=== PATIENT | female | born 1945 | race Caucasian/White ===

== ENCOUNTER 2022-01-04 12:48 | Emergency (ER) | payer MEDICARE, OTHER, MEDICAID, SELFPAY ==
--- NOTE | ~2022-01-04 | XR_ITS ---
EXAMINATION: LEFT FOOT 3 VIEWS LEFT ANKLE 2 VIEWS LEFT KNEE 2 VIEWS LEFT FEMUR 4 VIEWS PELVIS WITH RIGHT HIP 3 VIEWS CLINICAL INFORMATION: Pain status post fall COMPARISON: None TECHNIQUE: As above FINDINGS: Left ankle imaging demonstrates no acute deformity. Left foot and imaging is visualized osteopenia. No acute deformity. Left knee and femur imaging demonstrates an old healed distal femoral diametaphyseal fracture without any acute deformity. Knee joint intact. Multiple ghost tracks from previous ORIF changes within the femoral diaphysis. No knee joint effusion. Generalized hypertrophic spurring. Pelvis and right hip demonstrate no deformity. Generalized spurring. There is sclerosis about the left pelvis. Patient has history of radiation therapy for lymphoma. This may be related to chronic change. No pathologic findings. Dystrophic ossification medially about the left pelvis. Severe degenerative changes about the visualized lower lumbar spine. XR/XR ankle LT 2V IMPRESSION: Chronic findings as above. No acute fracture.
--- NOTE | ~2022-01-04 | XR_ITS ---
EXAMINATION: LEFT FOOT 3 VIEWS LEFT ANKLE 2 VIEWS LEFT KNEE 2 VIEWS LEFT FEMUR 4 VIEWS PELVIS WITH RIGHT HIP 3 VIEWS CLINICAL INFORMATION: Pain status post fall COMPARISON: None TECHNIQUE: As above FINDINGS: Left ankle imaging demonstrates no acute deformity. Left foot and imaging is visualized osteopenia. No acute deformity. Left knee and femur imaging demonstrates an old healed distal femoral diametaphyseal fracture without any acute deformity. Knee joint intact. Multiple ghost tracks from previous ORIF changes within the femoral diaphysis. No knee joint effusion. Generalized hypertrophic spurring. Pelvis and right hip demonstrate no deformity. Generalized spurring. There is sclerosis about the left pelvis. Patient has history of radiation therapy for lymphoma. This may be related to chronic change. No pathologic findings. Dystrophic ossification medially about the left pelvis. Severe degenerative changes about the visualized lower lumbar spine. XR/XR femur LT 2V IMPRESSION: Chronic findings as above. No acute fracture.
--- NOTE | ~2022-01-04 | XR_ITS ---
EXAMINATION: LEFT FOOT 3 VIEWS LEFT ANKLE 2 VIEWS LEFT KNEE 2 VIEWS LEFT FEMUR 4 VIEWS PELVIS WITH RIGHT HIP 3 VIEWS CLINICAL INFORMATION: Pain status post fall COMPARISON: None TECHNIQUE: As above FINDINGS: Left ankle imaging demonstrates no acute deformity. Left foot and imaging is visualized osteopenia. No acute deformity. Left knee and femur imaging demonstrates an old healed distal femoral diametaphyseal fracture without any acute deformity. Knee joint intact. Multiple ghost tracks from previous ORIF changes within the femoral diaphysis. No knee joint effusion. Generalized hypertrophic spurring. Pelvis and right hip demonstrate no deformity. Generalized spurring. There is sclerosis about the left pelvis. Patient has history of radiation therapy for lymphoma. This may be related to chronic change. No pathologic findings. Dystrophic ossification medially about the left pelvis. Severe degenerative changes about the visualized lower lumbar spine. XR/XR hip RT w PEL1V IMPRESSION: Chronic findings as above. No acute fracture.
--- NOTE | ~2022-01-04 | XR_ITS ---
EXAMINATION: LEFT FOOT 3 VIEWS LEFT ANKLE 2 VIEWS LEFT KNEE 2 VIEWS LEFT FEMUR 4 VIEWS PELVIS WITH RIGHT HIP 3 VIEWS CLINICAL INFORMATION: Pain status post fall COMPARISON: None TECHNIQUE: As above FINDINGS: Left ankle imaging demonstrates no acute deformity. Left foot and imaging is visualized osteopenia. No acute deformity. Left knee and femur imaging demonstrates an old healed distal femoral diametaphyseal fracture without any acute deformity. Knee joint intact. Multiple ghost tracks from previous ORIF changes within the femoral diaphysis. No knee joint effusion. Generalized hypertrophic spurring. Pelvis and right hip demonstrate no deformity. Generalized spurring. There is sclerosis about the left pelvis. Patient has history of radiation therapy for lymphoma. This may be related to chronic change. No pathologic findings. Dystrophic ossification medially about the left pelvis. Severe degenerative changes about the visualized lower lumbar spine. XR/XR knee LT 3V IMPRESSION: Chronic findings as above. No acute fracture.
--- NOTE | ~2022-01-04 | XR_ITS ---
EXAMINATION: LEFT FOOT 3 VIEWS LEFT ANKLE 2 VIEWS LEFT KNEE 2 VIEWS LEFT FEMUR 4 VIEWS PELVIS WITH RIGHT HIP 3 VIEWS CLINICAL INFORMATION: Pain status post fall COMPARISON: None TECHNIQUE: As above FINDINGS: Left ankle imaging demonstrates no acute deformity. Left foot and imaging is visualized osteopenia. No acute deformity. Left knee and femur imaging demonstrates an old healed distal femoral diametaphyseal fracture without any acute deformity. Knee joint intact. Multiple ghost tracks from previous ORIF changes within the femoral diaphysis. No knee joint effusion. Generalized hypertrophic spurring. Pelvis and right hip demonstrate no deformity. Generalized spurring. There is sclerosis about the left pelvis. Patient has history of radiation therapy for lymphoma. This may be related to chronic change. No pathologic findings. Dystrophic ossification medially about the left pelvis. Severe degenerative changes about the visualized lower lumbar spine. XR/XR foot LT min 3V IMPRESSION: Chronic findings as above. No acute fracture.
[2022-01-04 13:14] VITALS: BP 129/46; PULSE 57; RESP 18; TEMP 36.8; O2SAT 98; BMI 25.7
[2022-01-04 15:47] VITALS: BP 144/62; PULSE 59; RESP 16; TEMP 36.1; O2SAT 96
--- NOTE | 2022-01-04 15:50 | ED_ITS ---
HPI - Fall General Chief Complaint: Fall Stated Complaint: L Ankle/Knee R Hip Injury 01/04/22 Time Seen by Provider: 01/04/22 13:58 Source: patient Mode of arrival: wheelchair History of Present Illness HPI Narrative: 76-year-old female with a past medical history of lymphoma previously treated with radiation /chemotherapy, with residual LLE numbness/weakness, wheelchair- bound, presenting to the ED complaining of mechanical fall while trying to get into friend's pickup truck today. Reports due to baseline LLE weakness fell twisting left ankle/ leg and landing on right hip. Reports right hip pain radiating to groin. Denies numbness/ tingling to RLE. Denies head trauma or LOC. denies taking anticoagulation MD complaint: fall Onset (ago): hour(s) Fall from: standing Fall witnessed: yes, by bystander Related Data Allergies Allergy/AdvReac Type Severity Reaction Status Date / Time atropine [From ] Allergy Unknown Verified 01/04/22 13:13 enalaprilat [From Vasotec] Allergy Blister Verified 01/04/22 13:13 hyoscyamine [From ] Allergy Unknown Verified 01/04/22 13:13 phenobarbital Allergy Unknown Verified 01/04/22 13:13 scopolamine [From ] Allergy Unknown Verified 01/04/22 13:13 Sulfa (Sulfonamide Allergy Unknown Verified 01/04/22 13:13 Antibiotics) Review of Systems Review of Systems: Constitutional: No Fever, No Chills ENT/Mouth: No Ear Pain, No Nasal Congestion, No Hoarseness, No sore throat, No Rhinorrhea, No Swallowing Difficulty Cardiovascular: No Chest Pain, No SOB Respiratory: No Cough, No Sputum, No Wheezing Gastrointestinal: No Nausea, No Vomiting, No Diarrhea, No Constipation, No Abdominal pain Genitourinary: No Dysuria, No Hematuria, No Urgency, No Flank Pain Musculoskeletal: + joint pain, No Myalgias, No Joint Swelling Skin: No Skin Lesions, No rash Neuro: No Weakness, +chronic LLE Numbness, No Paresthesias, No head trauma, No LOC Yes all other systems are reviewed and are negative Constitutional: Constitutional: Reports as per HPI Neurologic: Denies Abnormal speech present PMFSH Past Medical History Attestation statement: The following information was validated with the patient. Social History Social History Advance Directives: Yes Advance Directives Information Provided: Yes Advance Directives on File: No Physical Exam Vital Signs: Vital Signs: Last Vital Signs Temp 96.9 F 01/04/22 15:47 Pulse 59 01/04/22 15:47 Resp 16 01/04/22 15:47 BP 144/62 H 01/04/22 15:47 Pulse Ox 96 01/04/22 15:47 O2 Del Method 01/04/22 15:47 BMI result Body Mass Index 25.7 Const: General: cooperative, healthy appearing and no acute distress; No acute distress Orientation/consciousness: patient oriented x3 Limitations: no limitations HEENT: Head: Yes normal to inspection and Yes atraumatic Ears: hearing grossly normal bilaterally General nose exam: Normal external nose present Face and sinus: Yes normal facial exam Eyes: General: appearance normal, both eyes and all related structures EOM: EOMs intact bilaterally Neck: Neck: Yes normal visual inspection and Yes no meningeal signs Resp: Effort & Inspection: normal respiratory effort and no respiratory distress Cardio: Rate: regular rate Heart sounds: S1 normal heart sound present and S2 normal heart sound present Peripheral pulses: dorsalis pedis present Back/Spine/Pelvis: Other: No midline thoracic/lumbar spinous tenderness/step-off or deformity Skin: Rashes: no rashes Wounds: no wounds Neuro: General: patient oriented x3, tone normal and no meningeal signs Cognition (Neuro): normal cognition Speech: No Abnormal speech present Extrem: Other: right hip / buttock with mild tenderness to palpation. No appreciable deformity. Neurovascular intact distally. Left lower extremity with mild tenderness to medial ankle with mild swelling. No appreciable deformity. Limited ROM of LLE at baseline. Neurovascular intact distally. Course Course Course Narrative: XR femur LT 2V / XR hip RT w PEL1V / XR knee LT 3V / XR ankle LT 2V / XR foot LT min 3V IMPRESSION: Chronic findings as above. No acute fracture.? Results discussed with patient including worrisome signs and symptoms and strict return precautions, and when to return to the emergency department. They verbalized understanding and feel safe for discharge at this time. patient follows with pain management, she will call tomorrow for follow-up MDM - Fall MDM Narrative Medical decision making narrative: 76-year-old female with a past medical history of lymphoma previously treated with radiation /chemotherapy, with residual LLE numbness/weakness, wheelchair- bound, presenting to the ED complaining of mechanical fall while trying to get into friend's pickup truck today. On exam vital signs stable, NAD, nontoxic appearing, physical exam as above. Difficult to assess patient's left lower extremity due to baseline numbness and weakness. Right hip with notable tenderness. concern for fractures versus sprain plan: X-rays Medical Records Attestation: I reviewed the patient's medical records. Lab Data Attestation: I reviewed the patient's lab results. Discharge Plan Discharge Clinical Impression: Ankle sprain, Fall, Acute hip pain Patient Disposition: Home, Self-Care Instructions: Ankle Sprain (ED), Arthralgia (ED), Fall Prevention (ED) Additional Instructions: your x-rays do not show any new fractures / dislocations, do show degenerative changes. An old changes related to her radiation please follow-up with her doctor/ pain management in continue home prescribed medications. Apply ice and or he. If symptoms persist or worsen, pain becomes unbearable or you have recurrent falls return to the emergency department Referrals: Debi Cisse MD [Primary Care Provider] - 5 days Interventions: ED Discharge Assessment Last Done: 01/04/22 16:57 Discharge Date/Time: 01/04/22 16:58
== END 2022-01-04 16:58 | disposition home or self-care (01) ==
PROVIDERS: Emergency Provider Emergency Medicine; PCP Family Medicine
DX: S93.402A Sprain of unspecified ligament of left ankle, initial encounter (principal); S79.911A Unspecified injury of right hip, initial encounter; M25.572 Pain in left ankle and joints of left foot; M25.571 Pain in right ankle and joints of right foot; M25.552 Pain in left hip; M25.551 Pain in right hip; M25.562 Pain in left knee; M25.561 Pain in right knee; W01.0XXA Fall on same level from slipping, tripping and stumbling without subsequent striking against object, initial encounter; Y93.9 Activity, unspecified; Y92.9 Unspecified place or not applicable; Y99.9 Unspecified external cause status; Z79.899 Other long term (current) drug therapy
CPT/HCPCS: 73502; 73552; 73562; 73600; 73630; 99283

== ENCOUNTER → 2022-01-07 10:59 | Outpatient (REF) | payer MEDICARE, OTHER, SELFPAY ==
--- NOTE | ~2022-01-07 | NM_ITS ---
EXAMINATION: NM BONE SCAN OF THE WHOLE BODY CLINICAL INFORMATION: 76-year-old female with history of lymphoma presented with chronic left hip and low back pain for 6 months. COMPARISON: Whole-body bone scan done on 05/24/2009. Radiographs of the lumbosacral spine done on 04/24/2009, and radiographs of left knee, left ankle and left foot done on 01/04/2022. TECHNIQUE: Multiple gamma scintillation camera images of the whole body were performed 2.5 hours following the intravenous administration of 25.0 mCi Tc-99m MDP. FINDINGS: In the head, no focal abnormalities present. In the thoracic cage and upper extremities, no focal abnormalities. In the spine, focal abnormal increased radiotracer activity is present within the lower cervical spine, new since prior study, most consistent with degenerative spondylosis. Multilevel focal abnormal increased radiotracer activities are also noted at lower thoracic spine, most consistent with degenerative changes. Focal abnormal moderately intense increased radiotracer activity is present involving the L5 mostly to the right of the midline, new since prior study, may represent degenerative spondylosis. There are no recent radiographs are available for comparison. Radiographic correlation is recommended. In the pelvis, no focal abnormal increased radiotracer activity is present. In the lower extremities, asymmetric focal increased radiotracer activity is present at left knee, predominantly involving the left femoral metaphysis, when correlating with the radiographs dated 01/04/2022, may represent arthritic changes. Specifically, both hips appear symmetric bilaterally without evidence of any focal abnormality. Mildly increased radiotracer activity is also noted at the left ankle and bilateral midfoot and right greater than left forefoot, likely represent arthritic or posttraumatic changes, without any radiographic correlate on the left foot radiograph done on 01/04/2022. No other definite bony abnormalities are noted. The urinary bladder and faint visualization of both kidneys are noted. NM/NM bone scan whole body IMPRESSION: 1. The spine shows abnormal increased radiotracer activities at the lower cervical, mid to lower thoracic and lower lumbar spine, likely represent multilevel degenerative spondylosis. However, there are no recent radiographs available for comparison. Accordingly, follow-up radiographs of the cervical, thoracic and lumbosacral spine is recommended for further correlation. 2. Asymmetric focal increased radiotracer activity is present around the left knee predominantly involving the left femoral metaphysis, when correlating with the available radiographs dated 01/04/2022, the finding would be most consistent with arthritic changes. 3. Increase radiotracer activity at left ankle when correlating with the radiograph dated 01/04/2022 is also consistent with arthritic changes. 4. Increased radiotracer activities around both feet likely represent arthritic or posttraumatic changes, without any definite radiographic correlate on the left. 5. Both hips appear symmetric without any discrete focal abnormality.
== END ==
LOC: HO.NUCMED 10:59
PROVIDERS: PCP Internal Medicine; Visit Provider Internal Medicine
DX: G89.29 Other chronic pain (principal); M25.551 Pain in right hip; M25.561 Pain in right knee; Z85.72 Personal history of non-Hodgkin lymphomas
CPT/HCPCS: 78306; A9503

== ENCOUNTER 2022-10-21 11:38 | Inpatient (IN) | payer MEDICARE, OTHER, SELFPAY ==
[2022-10-21] VITALS (7 sets, daily range): BP systolic 135–154; BP diastolic 51–85; PULSE 50–57; RESP 13–20; TEMP 36.7–37.1; O2SAT 95–98; BMI 23.4
--- NOTE | ~2022-10-21 | MR_ITS ---
MRI OF THE BRAIN WITHOUT IV CONTRAST INDICATION: Stroke. Left arm weakness and ataxia. COMPARISON: Head CT 10/21/2022. TECHNIQUE: Multiplanar multisequence MR imaging of the brain was obtained without IV contrast. FINDINGS: There is no hydrocephalus, extra-axial surface collection, or herniation. There is global cerebral volume loss and there is mild to moderate chronic microangiopathy. The major flow voids at the skull base are preserved. There is no acute infarct on diffusion-weighted imaging. There is no intracranial hemorrhage on the gradient recalled echo acquisition. The midline structures are normal. The cerebellar tonsils are normally positioned. The cerebellum and brainstem are normal. The craniocervical junction is normal. Osseous marrow signal intensity is homogenous. The visualized soft tissues are unremarkable. Complete opacification of the right maxillary sinus with central calcified material that is low T2 signal intensity. Mycetoma not excluded. ENT consultation advised. MR/MR head/brain wo con IMPRESSION: - No acute intracranial findings. No acute infarcts. - There is global cerebral volume loss and there is mild to moderate chronic microangiopathy. - Complete opacification of the right maxillary sinus with central calcified material that is low T2 signal intensity. Mycetoma not excluded. ENT consultation advised.
--- NOTE | ~2022-10-21 | XR_ITS ---
EXAMINATION: XR CHEST CLINICAL INFORMATION: Left arm weakness with question of pneumonia COMPARISON: CT chest 07/03/2008 TECHNIQUE: Frontal view of the chest was obtained. FINDINGS: No significant abnormality is noted involving the heart, lungs, mediastinum, bony thorax or soft tissues. XR/XR chest 1V IMPRESSION: Unremarkable examination.
--- NOTE | ~2022-10-21 | CT_ITS ---
EXAMINATION: CT HEAD WITHOUT CONTRAST CLINICAL INFORMATION: Left arm weakness with ataxia. COMPARISON: May 30, 2007 TECHNIQUE: Contiguous axial imaging was performed from the skull base to vertex without intravenous administration of contrast. This CT examination was performed using dose optimization techniques as appropriate, variously including the following: *Automated exposure control *Adjustment of mA and/or kV according to patient size (this includes techniques or standardized protocols for targeted exams where dose is matched to indication/reason for exam; i.e. extremities or head) *Use of iterative reconstruction technique DLP: 622 mGy-cm FINDINGS: No intracranial hemorrhage is identified. No abnormal extra-axial fluid collection is seen. No significant mass effect or midline structure shift is noted. Within the right frontal region there is a faint region of diminished density which could represent an involving right frontal lobe infarct. There also appears to be some diminished density about the anterior limb of the right internal capsule. There is opacification of the right maxillary sinus with appearance of antrectomy. No destructive bony lesion identified. Pterygoid plates intact. CT/CT head/brain wo IV con IMPRESSION: Findings consistent with possible evolving right frontal lobe and anterior limb of the right internal capsule infarct. No evidence of intracranial hemorrhage or significant mass effect.
--- NOTE | ~2022-10-21 | US_ITS ---
EXAMINATION: US EXTRACRANIAL CAROTID DUPLEX, BILATERAL CLINICAL INFORMATION: Stroke COMPARISON: None available. TECHNIQUE: Real-time ultrasound and Doppler techniques (integrating B-mode 2-D vascular images, Doppler spectral analysis and color-flow Doppler imaging) were utilized to interrogate the extracranial carotid arteries, the vertebral arteries and proximal subclavian arteries bilaterally. The degree of stenosis is determined by criteria similar to NASCET. FINDINGS: Right Side: 1. There is mild atherosclerotic plaque seen in the bulb, but none in the ICA. 2. The common carotid artery PSV proximally is 113 cm/s and distally 72.4 cm/s. 3. The proximal internal carotid artery velocities are 58.5 cm/s systolic and 15.7 cm/s diastolic. 4. The proximal external carotid artery PSV is 108 cm/s. 5. The vertebral artery shows antegrade flow. 6. The subclavian artery waveforms are normal. Left Side: 1. There is mild atherosclerotic plaque seen in the bulb, but none in the ICA. 2. The common carotid artery PSV proximally is 85.1 cm/s and distally 80.1 cm/s. 3. The proximal internal carotid artery velocities are 77.9 cm/s systolic and 20.9 cm/s diastolic. 4. The proximal external carotid artery PSV is 73.5 cm/s. 5. The vertebral artery shows 49.7 flow. 6. The subclavian artery waveforms are normal. US/US carotid duplex BI IMPRESSION: 1. RIGHT: Normal right internal carotid artery without atherosclerotic plaque or hemodynamically significant stenosis. 2. LEFT: Normal left internal carotid artery without atherosclerotic plaque or hemodynamically significant stenosis.
--- NOTE | 2022-10-21 12:00 | PC.NURSE ---
pt is alert and oriented, speaking in clear full sentences, no facial droop, left sided hand grasp slightly weakener then the right, no hand drift, sinus patti on the monitor, denies pain and dizziness at this time
--- NOTE | 2022-10-21 12:15 | ED_ITS ---
HPI - Weakness General Chief complaint: Weakness Stated complaint: L arm weakness since last night(9pm) per EMS Time Seen by Provider: 10/21/22 11:59 Source: patient and family Limitations: no limitations History of Present Illness HPI Narrative: A 7-year-old female who presents emergency department for evaluation of left arm weakness that started last night at 21:30 hours. She states that she then fell asleep in a chair. She woke up at 20 uncoordinated and weak. She then fell back asleep This morning when she woke up she states that her left arm was? were needed and weak compared to her right. She had no other symptoms. She states she did have a mild headache last night but this resolved. She contacted her doctor who advised her to go to the emergency department to be evaluated for possible stroke. Related Data Home Medications Medication Instructions Recorded Confirmed atorvastatin 20 mg tablet 20 mg PO DAILY 10/21/22 furosemide 40 mg tablet 40 mg PO DAILY 10/21/22 ipratropium bromide 21 mcg (0.03 1 spray intranasal BID PRN 10/21/22 %) nasal spray congestion methenamine hippurate 1 gram tablet 1 g PO BID 10/21/22 Allergies Allergy/AdvReac Type Severity Reaction Status Date / Time atropine [From ] Allergy Unknown Verified 10/21/22 11:58 enalaprilat [From Vasotec] Allergy Blister Verified 10/21/22 11:58 hyoscyamine [From ] Allergy Unknown Verified 10/21/22 11:58 phenobarbital Allergy Unknown Verified 10/21/22 11:58 scopolamine [From ] Allergy Unknown Verified 10/21/22 11:58 Sulfa (Sulfonamide Allergy Unknown Verified 10/21/22 11:58 Antibiotics) Review of Systems Review of Systems: Yes all other systems are reviewed and are negative [facility] Past Medical History [facility] Narrative: Past medical history: Hypertension, depression, anxiety, in 1986. Social history: She denies tobacco, alcohol and drug use. Her 2 daughters are here in the emergency department with her. Social History Social History Smoked in Last 30 Days: No Use of substances other than those prescribed or required for medical reasons: No Advance Directives: No Advance Directives Information Provided: Yes Physical Exam Vital Signs: Vital Signs: Last Vital Signs Temp 98.6 F 10/21/22 15:05 Pulse 50 10/21/22 15:05 Resp 13 10/21/22 15:05 BP 144/56 H 10/21/22 15:05 Pulse Ox 95 10/21/22 15:05 O2 Del Method Room Air 10/21/22 15:05 BMI result Body Mass Index 23.4 Const: General: cooperative and no acute distress Limitations: no limitations HEENT: Head: Yes normal to inspection, Yes normocephalic and Yes atraumatic Ears: external ears normal General nose exam: Normal external nose present Face and sinus: Yes normal facial exam Mouth: Normal oral and palatal mucosa present Throat: Yes posterior oropharynx normal Eyes: General: appearance normal, both eyes and all related structures Pupils: Equal, round and reactive pupils present Neck: Neck: Yes normal visual inspection, Yes no lymphadenopathy, Yes trachea midline and Yes supple Chest: Chest palpation & inspection: normal inspection of the chest and normal palpation of entire chest wall Resp: Effort & Inspection: normal respiratory effort and able to speak in complete sentences Auscultation: clear to auscultation bilaterally Cardio: Rate: regular rate Rhythm: regular rhythm Heart sounds: S1 normal heart sound present, S2 normal heart sound present and no murmurs GI: Inspection: Yes normal to inspection Palpation (GI): Soft to palpation, nontender and no guarding Auscultation: normal bowel sounds : General: Yes no CVA tenderness Back/Spine/Pelvis: Back: no CVA tenderness Skin: General skin exam: no rashes or lesions noted Neuro: Other: Cranial nerves 2-12 are intact, strength left upper extremities weak compared to the right, patient has chronic weakness of her left lower extremity secondary to femur fracture, cerebellar normal in the right upper extremity, patient has past pointing with her left upper extremity and uncoordinated movement with finger to nose to finger and rapid finger movement Cranial nerves: Yes Equal, round and reactive pupils present Extrem: General: Yes normal to inspection Psych: Appearance: grossly normal Speech and movement: Normal speech and movement present Affect: normal affect Attitude: cooperative Thought process: Normal thought process present Thought content: Normal thought content present NIH Stroke Scale Level of Consciousness: Alert Level of Consciousness Questions: Answers both questions correctly Level of Consciousness Commands: Performs both tasks correctly Best Gaze: Normal Visual: No visual loss Facial Palsy: Normal Motor Arm (Right): No drift Motor Arm (Left): Some effort against gravity Motor Leg (Right): No drift Motor Leg (Left): No drift (Patient has chronic weakness the left lower extremity secondary to femur fracture) Limb Ataxia: Absent Sensory: Normal Best Language: No aphasia Dysarthia: Normal Extinction and Inattention: No abnormality Score: 2 Medical Decision Making Medical Decision Making [facility] Narrative: 77-year-old female Who presents emergency department for evaluation of left upper extremity weakness compared to the right which began last night at 21:30 hours and persisted this morning. Examination did reveal weakness of the left upper extremity compared to the right. She has chronic weakness of her left lower extremity secondary to a femur fracture. Patient also has poor [id number]-finger and uncoordinated rapid finger movement of her left upper extremity compared to the right. 1458: My interpretation patient's laboratory evaluation as follows: WBC low 3700, platelet count low 104,000, BUN elevated 24, CO2 elevated 37, AST and ALT elevated [address] scan is concerning for a right frontal lobe and anterior limb of the internal capsule infarct which is consistent with her left upper extremity weakness. The patient is outside the thrombolytics window therefore the patient is not a tPA and tPA was not given. I did discuss the patient with our covering neurologist, Dr. Bailey recommended that the patient get aspirin in be admitted to the hospital for further workup of her stroke. I will discuss the patient's presentation with the covering hospitalist. Differential Diagnosis Differential diagnosis includes but is not limited to cerebellar stroke, cerebral stroke, mass effect, intracranial hemorrhage Consult Healthcare Provider Management of the patient was discussed with: Hospitalist and [employer] In[employer] (Neurologist, Dr. Bailey) Lab Data [facility] Lab Attestation statement: I reviewed the patient's lab results. 10/21/22 13:22 10/21/22 13:22 Labs: Lab Results 10/21/22 10/21/22 10/21/22 Range/Units 13:22 13:22 13:22 WBC 3.7 L (4.8-10.8) X10*3/uL RBC 4.22 (4.20-5.50) X10*6/uL Hgb 12.9 (12.0-16.0) g/dl Hct 39.3 (37.0-47.0) % MCV 93.1 (80.0-98.0) fL MCH 30.6 (27.0-33.0) pg MCHC 32.8 (31.0-35.0) g/dl RDW 12.5 (11.0-16.0) % Plt Count 104 L (160-400) X10*3/uL MPV 9.9 (9.4-12.3) fL Immature Gran % (Auto) 0.3 (0.0-0.4) % Neut % (Auto) 65.5 (45-73) % Lymph % (Auto) 19.7 L (20-40) % [place] % (Auto) 10.8 (2-11) % Eos % (Auto) 3.2 (0-4) % Baso % (Auto) 0.5 (0-2) % Lymph # (Auto) 0.7 L (1.2-4.9) X10*3/uL [place] # (Auto) 0.4 (0.1-1.2) X10*3/uL Eos # (Auto) 0.1 (0.0-0.4) X10*3/uL Baso # (Auto) 0.0 (0.0-0.2) X10*3/uL Abs Immat Gran (auto) 0.01 (0.00-0.03) X10*3/uL Absolute Neuts (auto) 2.4 (2.0-8.3) x10*3/uL Absolute Nucleated RBC 0.000 (0.0-0.012) X10*3/uL Nucleated RBC % (auto) 0.0 (0.0-0.2) /100WBC PT 10.9 (10.0-13.1) SEC INR 1.0 (0.9-1.1) APTT 33.3 (26.0-36.4) SEC Sodium 138 (135-145) mmol/L Potassium 5.0 (3.3-5.1) mmol/L Chloride 96 (96-108) mmol/L Carbon Dioxide 37 H (22-29) mmol/L Anion Gap 10 L (12-20) BUN 24 H (9-16) mg/dL Creatinine 0.82 (0.5-1.4) mg/dL Estim Creat Clear Calc 50.0 Estimated GFR > 60 Random Glucose 86 (60-115) mg/dL Calcium 9.5 (8.4-10.2) mg/dL Total Bilirubin 0.5 (0.0-1.0) mg/dL AST 40 H (5-31) U/L ALT 39 H (0-31) U/L Alkaline Phosphatase 52 (39-117) U/L Troponin I High Sens (<3.5-17.0) ng/L Total Protein 7.4 (6.5-8.0) g/dL Albumin 4.6 (3.5-5.0) g/dL Lipase 43 (8-78) U/L 10/21/22 Range/Units 13:22 WBC (4.8-10.8) X10*3/uL RBC (4.20-5.50) X10*6/uL Hgb (12.0-16.0) g/dl Hct (37.0-47.0) % MCV (80.0-98.0) fL MCH (27.0-33.0) pg MCHC (31.0-35.0) g/dl RDW (11.0-16.0) % Plt Count (160-400) X10*3/uL MPV (9.4-12.3) fL Immature Gran % (Auto) (0.0-0.4) % Neut % (Auto) (45-73) % Lymph % (Auto) (20-40) % [place] % (Auto) (2-11) % Eos % (Auto) (0-4) % Baso % (Auto) (0-2) % Lymph # (Auto) (1.2-4.9) X10*3/uL [place] # (Auto) (0.1-1.2) X10*3/uL Eos # (Auto) (0.0-0.4) X10*3/uL Baso # (Auto) (0.0-0.2) X10*3/uL Abs Immat Gran (auto) (0.00-0.03) X10*3/uL Absolute Neuts (auto) (2.0-8.3) x10*3/uL Absolute Nucleated RBC (0.0-0.012) X10*3/uL Nucleated RBC % (auto) (0.0-0.2) /100WBC PT (10.0-13.1) SEC INR (0.9-1.1) APTT (26.0-36.4) SEC Sodium (135-145) mmol/L Potassium (3.3-5.1) mmol/L Chloride (96-108) mmol/L Carbon Dioxide (22-29) mmol/L Anion Gap (12-20) BUN (9-16) mg/dL Creatinine (0.5-1.4) mg/dL Estim Creat Clear Calc Estimated GFR Random Glucose (60-115) mg/dL Calcium (8.4-10.2) mg/dL Total Bilirubin (0.0-1.0) mg/dL AST (5-31) U/L ALT (0-31) U/L Alkaline Phosphatase (39-117) U/L Troponin I High Sens 4.3 (<3.5-17.0) ng/L Total Protein (6.5-8.0) g/dL Albumin (3.5-5.0) g/dL Lipase (8-78) U/L Independent Interpretation I performed an independent interpretation of an: EKG Interpretation: My independent interpretation patient's 12 EKG done at 13:06: Sinus bradycardia rate 52, normal P QRS and QTC interval, no ST segment elevation, no ST depression, Q-waves in V1 and V2, no significant T-wave abnormalities no PACs, no PVCs Radiology Impression Discussion of test interpretation with radiology: I have reviewed the radiologist's reading. Radiologist Impression: CT head/brain wo IV con IMPRESSION: Findings consistent with possible evolving right frontal lobe and anterior limb of the right internal capsule infarct. No evidence of intracranial hemorrhage or significant mass effect. Dictated By:Christopher Epperson MD Independent Historian Clinical information obtained from an independent historian. History obtained from or confirmed by: Other (Two daughters who are at the patient's bedside) External Record Review External record reviewed: Inpatient record Discharge Plan Discharge Clinical Impression: Stroke
--- NOTE | 2022-10-21 12:21 | ECG_ITS ---
Test Reason : ? STROKE/ A-FIB Blood Pressure : / mmHG Vent. Rate : 052 BPM Atrial Rate : 052 BPM P-R Int : 196 ms QRS Dur : 088 ms QT Int : 464 ms P-R-T Axes : 063 016 068 degrees QTc Int : 431 ms Sinus bradycardia cannot exclude old Septal infarct (cited on or before 09-OCT-2009) Abnormal ECG When compared with ECG of 09-OCT-2009 17:15, No significant change was found Referred By: Chris Blake Electronically Signed By:CHANTALE LAWRENCE
[2022-10-21 13:26] LABS: MANUAL DIFF FLAG NO
[2022-10-21 13:31] LABS: Basophils Percent Auto 0.5 % (0-2); Eosinophils Absolute Auto 0.1 X10*3/uL (0.0-0.4); Eosinophils Percent Auto 3.2 % (0-4); Hematocrit 39.3 % (37.0-47.0); Hemoglobin 12.9 g/dl (12.0-16.0); Imm Gran Abs Auto 0.01 X10*3/uL (0.00-0.03); Imm Gran Pct Auto 0.3 % (0.0-0.4); Lymphocytes Absolute Auto 0.7 X10*3/uL (1.2-4.9); Lymphocytes Percent Auto 19.7 % (20-40); Mean Corpuscular HGB Conc 32.8 g/dl (31.0-35.0); Mean Corpuscular Hemoglobin 30.6 pg (27.0-33.0); Mean Corpuscular Volume 93.1 fL (80.0-98.0); Mean Platelet Volume 9.9 fL (9.4-12.3); Monocytes Absolute Auto 0.4 X10*3/uL (0.1-1.2); Monocytes Percent Auto 10.8 % (2-11); Neutrophils Absolute Auto 2.4 x10*3/uL (2.0-8.3); Neutrophils Percent Auto 65.5 % (45-73); Platelet Count 104 X10*3/uL (160-400); Red Blood Count 4.22 X10*6/uL (4.20-5.50); Red Cell Distribution Width 12.5 % (11.0-16.0); White Blood Count 3.7 X10*3/uL (4.8-10.8)
[2022-10-21 13:35] LABS: Prothrombin Time 10.9 SEC (10.0-13.1)
[2022-10-21 13:37] LABS: Partial Thromboplastin Time 33.3 SEC (26.0-36.4)
[2022-10-21 13:49] LABS: Alanine Aminotransferase 39 U/L (0-31); Albumin Level 4.6 g/dL (3.5-5.0); Alkaline Phosphatase 52 U/L (39-117); Anion Gap 10 (12-20); Aspartate Amino Transferase 40 U/L (5-31); Bilirubin Total 0.5 mg/dL (0.0-1.0); Blood Urea Nitrogen 24 mg/dL (9-16); Calcium 9.5 mg/dL (8.4-10.2); Carbon Dioxide 37 mmol/L (22-29); Chloride 96 mmol/L (96-108); Estimated Glomerular Filt Rate > 60; Glucose Random 86 mg/dL (60-115); Lipase 43 U/L (8-78); Sodium 138 mmol/L (135-145); Total Protein 7.4 g/dL (6.5-8.0); Troponin-I High Sensitivity 4.3 ng/L (<3.5-17.0)
[2022-10-21] MEDS: Aspirin 81 MG TAB.CHEW 162 MG PO (15:28)
--- NOTE | 2022-10-21 15:55 | P.HPHOSP_ITS ---
History of Present Illness Date of Service: 10/21/22 Attending physician on admission: Krystle Montejo Chief Complaint: lue weakness 77-year-old female with history of hypertension, hypercholesterolemia, peripheral neuropathy, hypothyroidism, depression, recurrent UTI, hypercholesterolemia, CARMEN on BiPAP, possible seizure disorder, resting tremor, and history of lymphoma s/p radiation of the left lower extremity lymph nodes presented to the ED earlier today for evaluation of left upper extremity weakness that started around 930 last night. She then fell asleep in a chair and woke up somewhat disoriented and weak but fell back asleep. This morning, states her left arm was much weaker than the right. Denies any other focal deficits. There was a mild headache last night which resolved. She does have history of stroke about 30 years ago without any sequela known. On arrival, vital stable, blood pressure 143/62. Mild leukopenia of 3.7. Platelets 104. Renal function baseline. Electrolytes normal except for mild hypercapnia of 37. Troponin 4.3. CXR unremarkable. Head CT with findings consistent with possible evolving right frontal lobe and anterior limb of the right internal capsule infarct but no evidence of intracranial hemorrhage or significant mass effect. Patient is outside of the window for tPA and is recommended for admission for further evaluation and monitoring of stroke. Given 160 mg aspirin in the ED. Review of Systems Review of Systems: General: No fevers, malaise, unintentional weight loss HEENT: No blurred vision, diplopia. No sore throat, nasal congestion, rhinorrhea, sinus pain, ear pain Cardiovascular: No chest pain, palpitations, or leg edema Respiratory: No shortness of breath, wheezing, cough GI: No abdominal pain, nausea, vomiting, diarrhea, constipation, melena, hematochezia : No dysuria, hematuria, increased urinary frequency, decreased urinary output MSK: No myalgia, back pain Neuro: No headaches. +LUE and LLE weakness, +lle numbness Skin: No rashes or lesions [facility] Medical History Anxiety GERD (gastroesophageal reflux disease) Hyperlipidemia Hypertension Hypothyroidism Lymphoma CARMEN on CPAP Peripheral neuropathy Recurrent UTI Resting tremor Restless leg syndrome Urinary incontinence Surgical History S/P radiation therapy Social History Patient Tobacco Use Status: Never used Tobacco Meds Allergies Allergy/AdvReac Type Severity Reaction Status Date / Time atropine [From ] Allergy Unknown Verified 10/21/22 11:58 enalaprilat [From Vasotec] Allergy Blister Verified 10/21/22 11:58 hyoscyamine [From ] Allergy Unknown Verified 10/21/22 11:58 phenobarbital Allergy Unknown Verified 10/21/22 11:58 scopolamine [From ] Allergy Unknown Verified 10/21/22 11:58 Sulfa (Sulfonamide Allergy Unknown Verified 10/21/22 11:58 Antibiotics) Active Medications: Current Medications Acetaminophen (Acetaminophen 325 Mg Tablet) 650 mg PO Q6H PRN PRN Reason: Pain, Mild (Pain Scale 1-3) Aspirin (Aspirin Enteric Coated 81 Mg Tablet.Dr) 81 mg PO DAILY [facility] Docusate Sodium (Docusate Sodium 100 Mg Capsule) 100 mg PO DAILY PRN PRN Reason: Constipation Ondansetron HCl (Ondansetron Hcl 4 Mg/2 Ml Vial) 4 mg IVPUSH Q8H PRN PRN Reason: Nausea and Vomiting Pharmacy Consult (Consult Rx Perform Med Rec) 1 each MISCELLANE ONCE PRN PRN Reason: Consult order Sodium Chloride (0.9 % Sodium Chloride Flush 3 Ml Syringe) 3 ml IVFLUSH QSHIFT [facility] Home Medications Medication Instructions Recorded Confirmed Last Taken Type atorvastatin 20 mg tablet 20 mg PO DAILY 10/21/22 Unknown History furosemide 40 mg tablet 40 mg PO DAILY 10/21/22 Unknown History ipratropium bromide 21 mcg (0.03 1 spray intranasal BID PRN 10/21/22 Unknown History %) nasal spray congestion methenamine hippurate 1 gram tablet 1 g PO BID 10/21/22 Unknown History Physical Exam Vital Signs and Narrative: Vital Signs: Last Vital Signs Temp 98.6 F 10/21/22 15:05 Pulse 50 10/21/22 15:05 Resp 13 10/21/22 15:05 BP 144/56 H 10/21/22 15:05 Pulse Ox 95 10/21/22 15:05 O2 Del Method Room Air 10/21/22 15:05 BMI result Body Mass Index 23.4 Constitutional - Awake and Alert, No apparent distress Eyes - PERRLA, EOMI Cardiovascular - S1S2, RRR, No edema Respiratory - Normal lung expansion, Normal respiratory effort, No respiratory distress, CTA bilaterally Gastrointestinal - NT / ND; +BS; No rebound or guarding Extremities - no calf tenderness bilaterally, no swelling Skin - Warm/Dry Neurological - Alert & oriented x3, CN II-XII in tact, 5/5 strength RUE and RLE. 3/5 strength LUE, 0/5 strength LLE. Positive left sided pronator drift Psychological - Appropriate affect Results Labs 10/21/22 13:22 10/21/22 13:22 Labs: Laboratory Results - last 24 hr 10/21/22 10/21/22 10/21/22 13:22 13:22 13:22 MCV 93.1 MCH 30.6 MCHC 32.8 RDW 12.5 Plt Count 104 L MPV 9.9 Immature Gran % (Auto) 0.3 Neut % (Auto) 65.5 Lymph % (Auto) 19.7 L [place] % (Auto) 10.8 Eos % (Auto) 3.2 Baso % (Auto) 0.5 Lymph # (Auto) 0.7 L Jack # (Auto) 0.4 Eos # (Auto) 0.1 Baso # (Auto) 0.0 Abs Immat Gran (auto) 0.01 Absolute Neuts (auto) 2.4 Absolute Nucleated RBC 0.000 Nucleated RBC % (auto) 0.0 PT 10.9 INR 1.0 APTT 33.3 Anion Gap 10 L Estim Creat Clear Calc 50.0 Estimated GFR > 60 Random Glucose 86 Calcium 9.5 Total Bilirubin 0.5 AST 40 H ALT 39 H Alkaline Phosphatase 52 Troponin I High Sens Total Protein 7.4 Albumin 4.6 Lipase 43 10/21/22 13:22 MCV MCH MCHC RDW Plt Count MPV Immature Gran % (Auto) Neut % (Auto) Lymph % (Auto) Jack % (Auto) Eos % (Auto) Baso % (Auto) Lymph # (Auto) Jack # (Auto) Eos # (Auto) Baso # (Auto) Abs Immat Gran (auto) Absolute Neuts (auto) Absolute Nucleated RBC Nucleated RBC % (auto) PT INR APTT Anion Gap Estim Creat Clear Calc Estimated GFR Random Glucose Calcium Total Bilirubin AST ALT Alkaline Phosphatase Troponin I High Sens 4.3 Total Protein Albumin Lipase Imaging Radiologist's Impressions: Impressions Chest X-Ray 10/21/22 12:44 IMPRESSION: Unremarkable examination. Head CT 10/21/22 12:50 IMPRESSION: Findings consistent with possible evolving right frontal lobe and anterior limb of the right internal capsule infarct. No evidence of intracranial hemorrhage or significant mass effect. Assessment and Plan (1) Stroke: Status: Acute Plan 77-year-old female with history of hypertension, hypercholesterolemia, peripheral neuropathy, hypothyroidism, depression, recurrent UTI, history hepatitis C treated with harvoni, hypercholesterolemia, CARMEN on BiPAP, possible seizure disorder, resting tremor, and history of lymphoma s/p radiation of the left lower extremity lymph nodes admitted for acute CVA. #Acute CVA -last well time around 930pm last night, outside of tPA window -Head CT showing evolving right frontal lobe and anterior limb of the right internal capsule infarct -appreciate neurology input -ASA 81 mg daily -High intensity statin -MRI brain ordered -Carotid u/s -echocardiogram ordered -passed bedside swallow evaluation -PT eval, OT eval -monitor on telemetry #HTN- reasonably controlled -hold antihypertensives in setting acute CVA #Hypothyroidism -continue levothyroxine #HLD -continue statin #Mood disorder/migraines -stable -continue home meds #Recurrent UTI/incontinence -continue methenamine #Resting tremor/ possible unspecified seizures -continue home meds DVT prophylaxis- lovenox DNR/DNI Pt requires inpt stay at least 2 midnights for management of acute CVA requiring close monitoring, ongoing evaluation, and PT/OT evaluation with possible placement to STR. Time Spent With Patient Time: Total time managing care of this patient today ____ minutes. Quality Stroke Does the patient have a stroke diagnosis?: Yes Reason for No Anti-thrombotic by Day Two: Drug treatment not indicated VTE Prior VTE?: No VTE Risk Level:: Medical - moderate - high VTE Device Contraindication: Treatment Not Indicated VTE Drug Contraindication: N/A - Med Ordered
[2022-10-21] MEDS: Buprenorphine HCL 2 MG TAB.SUBL 4 MG SUBLINGUAL (16:03)
[2022-10-21] MEDS: 0.9 % Sodium Chloride Flush 3 ML SYRINGE IVFLUSH (16:03)
--- NOTE | 2022-10-21 16:16 | PM.EVENT ---
Event Note Date of Service: 10/23/22 Event Note: Addendum to history and physical by the advanced practice provider, Rosanna GARVEY I interviewed and examined the patient. I discussed their presentation and management with the [place]. I reviewed the history and physical and agree with the documentation, with the following additions and corrections: 77yo R-handed F with HTN + HLD + hypothyroidism + CARMEN + possible seizure disorder, hx lymphoma s/p XRT presenting with acute LUE weakness that started at 21:30 last night, after which she fell asleep. Noted LUE weakness this morning, called her doctor, and was advised to come to the ED. LLE chronic weak due to femur fracture. CT with R frontal lobe/internal capsule anterior limb acute CVA. Out of tPA window. Will admit to [facility] on cardiac monitoring and consult Neuro, PT/OT. Start ASA for secondary prophylaxis. Time Spent With Patient Time: Total time managing care of this patient today ____ minutes.
[2022-10-21 16:20] LABS: Cholesterol 137 mg/dL; HDL Cholesterol 66 mg/dL; LDL Cholesterol Calculated 65 mg/dl; Triglycerides 31 mg/dL
--- NOTE | 2022-10-21 18:35 | PC.NURSE ---
report given to imc rn
--- NOTE | 2022-10-21 20:19 | PHA.MEDREC ---
Pharmacy Consult ? Medication Reconciliation Pharmacy has completed the medication reconciliation. spoke with pt who had a listed dated october 2022, also [facility] as some meds on her list did not make sense.
[2022-10-21] MEDS: polyethylene glycoL 3350 17 GM POWD.PACK PO (21:34)
[2022-10-21] MEDS: NaPROXEN 500 MG TABLET PO (21:35)
[2022-10-21] MEDS: lamoTRIgine 100 MG TABLET 200 MG PO (21:35)
[2022-10-21] MEDS: Ascorbic Acid 500 MG TABLET 1000 MG PO (21:35)
[2022-10-21] MEDS: busPIRone HCl 5 MG TABLET 15 MG PO (21:35)
[2022-10-21] MEDS: Latanoprost 0.005 % Ophth Sol 2.5 ML DROPS 1 DROP EYE-BOTH (21:40)
--- NOTE | 2022-10-21 23:45 | PC.NURSE ---
assumed care ~18:00. pt settled and resting comfortably in bed. pt A&O x 4. complains of 4/10 right sided hip pain and states a 4/10 is tolerable. speech coherent and clear - some difficulty finding words at times. left sided weakness. stroke pamphlet provided.
[2022-10-22] VITALS (7 sets, daily range): BP systolic 133–183; BP diastolic 62–78; PULSE 52–90; RESP 16–20; TEMP 36.1–36.8; O2SAT 94–97
[2022-10-22] MEDS: 0.9 % Sodium Chloride Flush 3 ML SYRINGE IVFLUSH ×3 (00:03→16:09)
[2022-10-22] MEDS: Levothyroxine Sodium 75 MCG TABLET PO (05:41)
[2022-10-22] MEDS: Omeprazole 20 MG CAPSULE.DR PO ×2 (05:41→16:09)
[2022-10-22 06:28] LABS: MANUAL DIFF FLAG NO
[2022-10-22 06:37] LABS: Basophils Percent Auto 0.7 % (0-2); Eosinophils Absolute Auto 0.2 X10*3/uL (0.0-0.4); Eosinophils Percent Auto 5.2 % (0-4); Hematocrit 37.7 % (37.0-47.0); Hemoglobin 12.6 g/dl (12.0-16.0); Imm Gran Abs Auto 0.01 X10*3/uL (0.00-0.03); Imm Gran Pct Auto 0.2 % (0.0-0.4); Lymphocytes Percent Auto 24.1 % (20-40); Mean Corpuscular HGB Conc 33.4 g/dl (31.0-35.0); Mean Corpuscular Hemoglobin 30.9 pg (27.0-33.0); Mean Corpuscular Volume 92.4 fL (80.0-98.0); Monocytes Absolute Auto 0.5 X10*3/uL (0.1-1.2); Neutrophils Absolute Auto 2.5 x10*3/uL (2.0-8.3); Neutrophils Percent Auto 57.8 % (45-73); Platelet Count 115 X10*3/uL (160-400); Red Blood Count 4.08 X10*6/uL (4.20-5.50); Red Cell Distribution Width 12.6 % (11.0-16.0); White Blood Count 4.2 X10*3/uL (4.8-10.8)
[2022-10-22 06:54] LABS: Alanine Aminotransferase 39 U/L (0-31); Albumin Level 4.4 g/dL (3.5-5.0); Alkaline Phosphatase 48 U/L (39-117); Anion Gap 13 (12-20); Aspartate Amino Transferase 46 U/L (5-31); Bilirubin Total 0.5 mg/dL (0.0-1.0); Blood Urea Nitrogen 20 mg/dL (9-16); Calcium 9.5 mg/dL (8.4-10.2); Carbon Dioxide 31 mmol/L (22-29); Chloride 97 mmol/L (96-108); Creatinine Clr Calc Pharmacy 55.4; Estimated Glomerular Filt Rate > 60; Glucose Random 95 mg/dL (60-115); Potassium 5.2 mmol/L (3.3-5.1); Sodium 136 mmol/L (135-145); Total Protein 7.5 g/dL (6.5-8.0)
--- NOTE | 2022-10-22 07:00 | CA_ITS ---
Transthoracic Echocardiogram Patient (Last, First, Middle): Celi Nina Lou [facility] Gender: Female Date of : 1945 Age: 77 Procedure Date: 10/22/2022 Procedure Type: Transthoracic Echocardiogram [place] [facility] [place]: 165.1 cm Weight: 63.5 kg BSA: 1.70 m2 Heart Rate: 54 bpm BP: 133 / 62 mmHg Manager Laundry: SB Referring MD: Rosanna GARVEY Symptoms: stroke Study Quality: Adequate ECG Rhythm: Bradycardia Conclusions: - The left ventricular systolic function is normal. The visually estimated ejection fraction is between 65-70%. - Evidence suggests grade III (severe) diastolic dysfunction. - Aortic valve sclerosis but no significant stenosis. - There is mild tricuspid valve regurgitation. - Mild pulmonary hypertension is present. Findings Left Ventricle Normal left ventricular cavity size. There is normal left ventricular wall thickness. The left ventricular systolic function is normal. The visually estimated ejection fraction is between 65-70%. There is no evidence of regional wall motion abnormalities. E/E prime ratio is >15, consistent with elevated filling pressures. Evidence suggests grade III (severe) diastolic dysfunction. LV peak GLS -18.9%. Right Ventricle Normal right ventricular cavity size and systolic function. Atria The left atrium is mildly dilated. The right atrium is normal in size. Aortic Valve There is a normal trileaflet aortic valve. There is mild calcification of the aortic valve. There is no aortic valve regurgitation. No significant aortic stenosis. Mitral Valve There is mild anterior mitral leaflet thickening. There is mild mitral valve regurgitation. There is no mitral valve stenosis. Pulmonic Valve The pulmonic valve is likely normal. Tricuspid Valve Normal tricuspid valve structure. There is mild tricuspid valve regurgitation. The right ventricular systolic pressure is 41 mmHg. Mild pulmonary hypertension is present. Great Vessels The asc aorta is normal in size. Venous The inferior vena cava is normal in size and collapses less than 50% with inspiration. Pericardium/Pleural There is no evidence of pericardial effusion. Prior Study Comparison No prior study available for comparison. Measurements 2D Linear Measurements IVSd: 0.79 0.6-0.9/0.6-1.0 cm LVIDd: 4.81 3.9-5.3/4.2-5.9 cm LVIDd Index: 2.83 2.4-3.2/2.2-3.1 cm/m2 LVIDs: 2.90 2.0-3.6 cm LVPWd: 0.66 0.7-1.1 cm LA Diam: 4.10 2.7-3.8/3.0-4.0 cm LAIDs Index: 2.41 1.5-2.3 cm/m2 LV Mass: 139.51 67-162/88-224 g LV Mass Index: 82.07 43-95/49-115 g/m2 LVOT Diam: 2.00 3.0+(-)1.3 cm 2D Systolic Function EF 4C: 73.90 >55% EF 2C: 73.30 >55% EF BiP: 72.70 >55% Mitral Valve MV Pk E: 1.13 MV PK A: 0.23 MV Decel Time: 184.00 E/A: 5.00 E'Lateral: 4.35 E'Medial: 4.84 E/E' Med: 23.30 E/E' Lat: 26.00 PHT: 54.00 MVA PHT: 4.07 Decel Iosco: 6.13 MR Vol - PW Dopp: 22.99 MR VTI: 2.09 MR ERO: 11.00 MR Alias Markel: 0.39 MR RAD: 0.50 Aortic Valve AoV Pk Markel: 1.95 AoV Mn Markel: 1.34 AoV VTI: 0.46 AoV Pk Grad: 15.00 Aov Mn Grad: 8.00 YAO Cont.VTI: 1.58 LVOT LVOT Pk Markel: 0.97 LVOT Mn Markel: 0.68 LVOT VTI: 0.23 LVOT Pk Grad: 4.00 LVOT Mn Grad: 2.00 LVOT Diam: 2.00 LVOT Area: 3.14 Diastolic Function MV Pk E: 1.13 MV Pk A: 0.23 E/A: 5.00 E'Medial: 4.84 E/E' Med: 23.30 E' Laterial: 4.35 E/E' Lat: 26.00 Right Ventricle TAPSE (mm): 27.20 TVS' Markel: 12.00 Tricuspid Valve TR Pk Markel: 2.88 TR Pk Grad: 33.00 RA Press: 8.00 RVSP: 41.00 Great Vessels Aorta Sinus of Valsalva: 2.70 2.0-3.5 cm Ao Asc: 3.40 2.1-3.4 cm Pulmonary Veins Pulm Vein S/D 0.50 Pulmonary Valve PV Pk Markel: 0.88 Peak PV Grad: 3.00 Updated in Other Vendor System with Status of Final Arsh Costa MD electronically signed on 10/22/2022 12:08:02 PM with status of Final
[2022-10-22] MEDS: Aspirin Enteric Coated 81 MG TABLET.DR PO (07:43)
[2022-10-22] MEDS: Atorvastatin Calcium 40 MG TABLET PO (07:43)
[2022-10-22] MEDS: lamoTRIgine 100 MG TABLET 200 MG PO ×2 (07:44→20:48)
[2022-10-22] MEDS: Multivitamin TABLET 1 TAB PO (07:44)
[2022-10-22] MEDS: Escitalopram Oxalate 20 MG TABLET PO (07:44)
[2022-10-22] MEDS: Ascorbic Acid 500 MG TABLET 1000 MG PO ×2 (07:44→20:49)
[2022-10-22] MEDS: NaPROXEN 500 MG TABLET PO (07:44)
[2022-10-22] MEDS: Cholecalciferol (Vitamin D3) 10 MCG TABLET PO (07:45)
[2022-10-22] MEDS: Loratadine 10 MG TABLET PO (07:45)
[2022-10-22] MEDS: busPIRone HCl 5 MG TABLET PO (07:45)
[2022-10-22] MEDS: polyethylene glycoL 3350 17 GM POWD.PACK PO ×2 (07:45→20:49)
--- NOTE | 2022-10-22 08:31 | MHC.CM.PN ---
CM met with Patient at bedside and addressed IMM with her, providing Patient with the original and placing a copy on the chart. Patient lives alone (other than with her cat)in an apartment and she uses a w/c at baseline, to assist with mobility. Patient receives a [facility] PULP from [facility] for 2 hours/day and a Senior Cutting Room Supervisor from [facility], 2x/week, 3-4 hours/visit. Patient uses Bipap at home that she believes comes from [facility]. Home with new [facility](she has had [facility] in the past) VS [facility] is Patient's tentative plan/goal and CM has initiated and will follow for dc planning. Patient's 2 Daughters are her HCP. Patient has received Pzizer/Covid vax x4 and her PCP is Dr. Debi Cisse.
--- NOTE | 2022-10-22 09:39 | MHC.CM.PN ---
PT is recommending home with services; CM will follow.
[2022-10-22] MEDS: Acetaminophen 325 MG TABLET 650 MG PO (12:17)
--- NOTE | 2022-10-22 14:28 | P.PNIM_ITS ---
Subjective Subjective Date of Service: 10/22/22 Interval History: seen and examined this morning follow up for IDA weakness, possible stroke left arm weakness improving chronic back/leg pain Review of Systems Review of Systems: Yes all other systems are reviewed and are negative Constitutional Constitutional: Denies chills and Denies fever(s) ENT Ears, Nose, Mouth, and Throat: Denies dizziness Cardiovascular Cardiovascular: Denies chest pain, Denies palpitations and Denies dyspnea Respiratory Respiratory: Denies cough and Denies dyspnea Gastrointestinal Gastrointestinal: Reports abdominal pain Neurologic Neurologic: Denies dizziness Endocrine Endocrine: Denies palpitations Physical Exam Vital Signs: Vital Signs: Last Vital Signs Temp 98.3 F 10/22/22 11:39 Pulse 56 10/22/22 11:39 Resp 20 10/22/22 11:39 BP 181/76 H 10/22/22 11:39 Pulse Ox 97 10/22/22 11:39 O2 Del Method Room Air 10/22/22 11:39 BMI result Body Mass Index 23.4 Const: General: cooperative, comfortable, alert and awake Nutritional Appearance: average body habitus Orientation/consciousness: patient oriented x3 Resp: Effort & Inspection: normal respiratory effort, able to speak in complete sentences, no respiratory distress and no use of accessory muscles Cardio: Rate: regular rate Heart sounds: S1 normal heart sound present and S2 normal heart sound present GI: Inspection: No distended Palpation (GI): Soft to palpation and nontender Neuro: Other: LUE 3/5 RUE 5/5; lower extremity weakness chronic General: patient oriented x3 and CN's II-XI intact bilaterally Extrem: General: Yes no pedal edema Objective Data Active Medications Acetaminophen (Acetaminophen 325 Mg Tablet) 650 mg PO Q6H PRN PRN Reason: Pain, Mild (Pain Scale 1-3) Last Admin: 10/22/22 12:17 Dose: 650 mg Documented By: RISA Amlodipine Besylate (Amlodipine Besylate 10 Mg Tablet) 10 mg PO DAILY [facility]; Protocol Ascorbic Acid (Ascorbic Acid 500 Mg Tablet) 1,000 mg PO BID [facility] Last Admin: 10/22/22 07:44 Dose: 1,000 mg Documented By: RISA Aspirin (Aspirin Enteric Coated 81 Mg Tablet.) 81 mg PO DAILY [facility] Last Admin: 10/22/22 07:43 Dose: 81 mg Documented By: RISA Atorvastatin Calcium (Atorvastatin Calcium 40 Mg Tablet) 40 mg PO DAILY [facility] Last Admin: 10/22/22 07:43 Dose: 40 mg Documented By: RISA Buprenorphine HCl (Buprenorphine Hcl 2 Mg Tab.Subl) 4 mg SUBLINGUAL TID [facility] Last Admin: 10/22/22 14:23 Dose: Not Given Documented By: RISA Non-Admin Reason: Med Not Available Buspirone HCl (Buspirone Hcl 5 Mg Tablet) 5 mg PO DAILY [facility] Last Admin: 10/22/22 07:45 Dose: 5 mg Documented By: RISA Buspirone HCl (Buspirone Hcl 5 Mg Tablet) 15 mg PO BEDTIME [facility] Last Admin: 10/21/22 21:35 Dose: 15 mg Documented By: KAMILA Docusate Sodium (Docusate Sodium 100 Mg Capsule) 100 mg PO DAILY PRN PRN Reason: Constipation Escitalopram Oxalate (Escitalopram Oxalate 20 Mg Tablet) 20 mg PO DAILY [facility] Last Admin: 10/22/22 07:44 Dose: 20 mg Documented By: RISA Lamotrigine (Lamotrigine 100 Mg Tablet) 200 mg PO BID [facility] Last Admin: 10/22/22 07:44 Dose: 200 mg Documented By: RISA Latanoprost (Latanoprost 0.005 % Ophth Elena 2.5 Ml Drops) 1 drop EYE-BOTH BEDTIME [facility] Last Admin: 10/21/22 21:40 Dose: 1 drop Documented By: KAMILA Levothyroxine Sodium (Levothyroxine Sodium 75 Mcg Tablet) 75 mcg PO DAILY@0600 [facility] Last Admin: 10/22/22 05:41 Dose: 75 mcg Documented By: GABBY Loratadine (Loratadine 10 Mg Tablet) 10 mg PO DAILY [facility] Last Admin: 10/22/22 07:45 Dose: 10 mg Documented By: RISA Lorazepam (Lorazepam 0.5 Mg Tablet) 0.5 mg PO DAILY PRN PRN Reason: Anxiety Multivitamins/Vitamin C (Multivitamin Tablet) 1 tab PO DAILY [facility] Last Admin: 10/22/22 07:44 Dose: 1 tab Documented By: RISA Naproxen (Naproxen 500 Mg Tablet) 500 mg PO BID [facility] Last Admin: 10/22/22 07:44 Dose: 500 mg Documented By: RISA Non-Formulary Medication (Methenamine Hippurate) 1 gm PO BID [facility] Omeprazole (Omeprazole 20 Mg Capsule.Dr) 20 mg PO BID@0630,1630 [facility] Last Admin: 10/22/22 05:41 Dose: 20 mg Documented By: GABBY Ondansetron HCl (Ondansetron Hcl 4 Mg/2 Ml Vial) 4 mg IVPUSH Q8H PRN PRN Reason: Nausea and Vomiting Pharmacy Consult (Consult Rx Perform Med Rec) 1 each MISCELLANE ONCE PRN PRN Reason: Consult order Polyethylene Glycol (Polyethylene Glycol 3350 17 Gm Powd.Pack) 17 gm PO BID [facility] Last Admin: 10/22/22 07:45 Dose: 17 gm Documented By: RISA Psyllium Hydrophilic Mucilloid (Psyllium Seed 3.4 Gm Powd.Pack) 3.4 gm PO BID [facility] Last Admin: 10/22/22 07:45 Dose: 3.4 gm Documented By: RISA Sodium Chloride (0.9 % Sodium Chloride Flush 3 Ml Syringe) 3 ml IVFLUSH QSHIFT [facility] Last Admin: 10/22/22 07:43 Dose: 3 ml Documented By: RISA Vitamin D (Cholecalciferol (Vitamin D3) 10 Mcg Tablet) 10 mcg PO DAILY [facility] Last Admin: 10/22/22 07:45 Dose: 10 mcg Documented By: RISA Labs 10/22/22 06:12 10/22/22 06:12 Labs: Laboratory Results - last 24 hr 10/21/22 10/22/22 10/22/22 13:22 06:12 06:12 MCV 92.4 MCH 30.9 MCHC 33.4 RDW 12.6 Plt Count 115 L MPV 10.0 Immature Gran % (Auto) 0.2 Neut % (Auto) 57.8 Lymph % (Auto) 24.1 Towner % (Auto) 12.0 H Eos % (Auto) 5.2 H Baso % (Auto) 0.7 Lymph # (Auto) 1.0 L Towner # (Auto) 0.5 Eos # (Auto) 0.2 Baso # (Auto) 0.0 Abs Immat Gran (auto) 0.01 Absolute Neuts (auto) 2.5 Absolute Nucleated RBC 0.000 Nucleated RBC % (auto) 0.0 Anion Gap 13 Estim Creat Clear Calc 55.4 Estimated GFR > 60 Random Glucose 95 Calcium 9.5 Total Bilirubin 0.5 AST 46 H ALT 39 H Alkaline Phosphatase 48 Total Protein 7.5 Albumin 4.4 Triglycerides 31 Cholesterol 137 LDL Cholesterol, Calc 65 HDL Cholesterol 66 Assessment and Plan (1) Left arm weakness: Status: Acute Plan 77-year-old female with history of hypertension, hypercholesterolemia, peripheral neuropathy, hypothyroidism, depression, recurrent UTI, history hepatitis C treated with harvoni, hypercholesterolemia, CARMEN on BiPAP, possible seizure disorder, resting tremor, and history of lymphoma s/p radiation of the left lower extremity lymph nodes admitted for acute CVA. Left Upper Extremity weakness LKWT around 930pm night prior to admission, outside of tPA window Head CT showing possible evolving right frontal lobe and anterior limb of the right internal capsule infarct was started on ASA 81 mg daily and High intensity statin carotid US with no hemodynamically significant carotid stenosis echo with severe diastolic dysfunction, preserved EF LDL 65 passed bedside swallow evaluation seen by PT MERI mortensen - rec home with services neurology consult pending #HTN- -hold antihypertensives in setting acute CVA - will resume in am #diastolic CHF echo with severe diastolic dysfunction presumable chronic as pt on diuretics at baseline no acute exacerbation #hyperkalemia mild, 5.2 arb on hold for permissive HTN hold NSAIDs repeat BMP in am #chronic pain continue home buprenorphine #Hypothyroidism -continue levothyroxine #HLD -continue statin -mild transaminities - should be monitored outpatient while on statin #Mood disorder/migraines -stable -continue home meds #Recurrent UTI/incontinence -continue methenamine #Resting tremor/ possible unspecified seizures -continue home meds DVT prophylaxis- mechanical devices DNR/DNI attending - dr. lerner Requires ongoing inpatient hospitalization for specialist evaluation, close monitoring Time Spent With Patient Time: Total time managing care of this patient today ____ minutes. Quality Stroke Does the patient have a stroke diagnosis?: Yes Reason for No Anti-thrombotic by Day Two: Drug treatment not indicated VTE Prior VTE?: No VTE Risk Level:: Medical - moderate - high VTE Device Contraindication: Treatment Not Indicated VTE Drug Contraindication: N/A - Med Ordered
[2022-10-22] MEDS: Buprenorphine HCL 2 MG TAB.SUBL 4 MG SUBLINGUAL ×2 (14:34→20:48)
--- NOTE | 2022-10-22 15:37 | P.CNNE_ITS ---
History of Present Illness Data of Consult Service Date: 10/22/22 Primary Care Provider: Debi Cisse MD [facility] Reason for consult: Possible stroke 77 years old woman I was asked to see for possibility of stroke. When I asked her why she was here, she stated left arm pain that was better today. Previously she has stated left arm weakness. She also reported that she had some problem with the leg and foot weakness for long time. Review of Systems Review of Systems: No recent cold or flu-like illness PMFSH Past Medical History Medical History Anxiety GERD (gastroesophageal reflux disease) Hyperlipidemia Hypertension Hypothyroidism Lymphoma CARMEN on CPAP Peripheral neuropathy Recurrent UTI Resting tremor Restless leg syndrome Urinary incontinence Surgical History Surgical History S/P radiation therapy Social History Social History Housing: Other Housing Other:: senior apartment. Do you presently have visiting nurse or other home services: Yes Patient Tobacco Use Status: Never used Tobacco service: No Current occupational status: retired [employer] Allergies Allergy/AdvReac Type Severity Reaction Status Date / Time atropine [From ] Allergy Unknown Verified 10/21/22 11:58 enalaprilat [From Vasotec] Allergy Blister Verified 10/21/22 11:58 hyoscyamine [From ] Allergy Unknown Verified 10/21/22 11:58 phenobarbital Allergy Unknown Verified 10/21/22 11:58 scopolamine [From ] Allergy Unknown Verified 10/21/22 11:58 Sulfa (Sulfonamide Allergy Unknown Verified 10/21/22 11:58 Antibiotics) Active Medications: Current Medications Acetaminophen (Acetaminophen 325 Mg Tablet) 650 mg PO Q6H PRN PRN Reason: Pain, Mild (Pain Scale 1-3) Last Admin: 10/22/22 12:17 Dose: 650 mg Amlodipine Besylate (Amlodipine Besylate 10 Mg Tablet) 10 mg PO DAILY [facility]; Protocol Ascorbic Acid (Ascorbic Acid 500 Mg Tablet) 1,000 mg PO BID [facility] Last Admin: 10/22/22 07:44 Dose: 1,000 mg Aspirin (Aspirin Enteric Coated 81 Mg Tablet.) 81 mg PO DAILY [facility] Last Admin: 10/22/22 07:43 Dose: 81 mg Atorvastatin Calcium (Atorvastatin Calcium 40 Mg Tablet) 40 mg PO DAILY [facility] Last Admin: 10/22/22 07:43 Dose: 40 mg Buprenorphine HCl (Buprenorphine Hcl 2 Mg Tab.Subl) 4 mg SUBLINGUAL TID [facility] Last Admin: 10/22/22 14:34 Dose: 4 mg Buspirone HCl (Buspirone Hcl 5 Mg Tablet) 5 mg PO DAILY [facility] Last Admin: 10/22/22 07:45 Dose: 5 mg Buspirone HCl (Buspirone Hcl 5 Mg Tablet) 15 mg PO BEDTIME [facility] Last Admin: 10/21/22 21:35 Dose: 15 mg Docusate Sodium (Docusate Sodium 100 Mg Capsule) 100 mg PO DAILY PRN PRN Reason: Constipation Escitalopram Oxalate (Escitalopram Oxalate 20 Mg Tablet) 20 mg PO DAILY [facility] Last Admin: 10/22/22 07:44 Dose: 20 mg Furosemide (Furosemide 40 Mg Tablet) 40 mg PO DAILY [facility]; Protocol Lamotrigine (Lamotrigine 100 Mg Tablet) 200 mg PO BID [facility] Last Admin: 10/22/22 07:44 Dose: 200 mg Latanoprost (Latanoprost 0.005 % Ophth Elena 2.5 Ml Drops) 1 drop EYE-BOTH BEDTIME [facility] Last Admin: 10/21/22 21:40 Dose: 1 drop Levothyroxine Sodium (Levothyroxine Sodium 75 Mcg Tablet) 75 mcg PO DAILY@0600 [facility] Last Admin: 10/22/22 05:41 Dose: 75 mcg Loratadine (Loratadine 10 Mg Tablet) 10 mg PO DAILY [facility] Last Admin: 10/22/22 07:45 Dose: 10 mg Lorazepam (Lorazepam 0.5 Mg Tablet) 0.5 mg PO DAILY PRN PRN Reason: Anxiety Multivitamins/Vitamin C (Multivitamin Tablet) 1 tab PO DAILY [facility] Last Admin: 10/22/22 07:44 Dose: 1 tab Naproxen (Naproxen 500 Mg Tablet) 500 mg PO BID [facility] Last Admin: 10/22/22 07:44 Dose: 500 mg Non-Formulary Medication (Methenamine Hippurate) 1 gm PO BID [facility] Omeprazole (Omeprazole 20 Mg Capsule.Dr) 20 mg PO BID@0630,1630 [facility] Last Admin: 10/22/22 05:41 Dose: 20 mg Ondansetron HCl (Ondansetron Hcl 4 Mg/2 Ml Vial) 4 mg IVPUSH Q8H PRN PRN Reason: Nausea and Vomiting Pharmacy Consult (Consult Rx Perform Med Rec) 1 each MISCELLANE ONCE PRN PRN Reason: Consult order Polyethylene Glycol (Polyethylene Glycol 3350 17 Gm Powd.Pack) 17 gm PO BID [facility] Last Admin: 10/22/22 07:45 Dose: 17 gm Psyllium Hydrophilic Mucilloid (Psyllium Seed 3.4 Gm Powd.Pack) 3.4 gm PO BID [facility] Last Admin: 10/22/22 07:45 Dose: 3.4 gm Sodium Chloride (0.9 % Sodium Chloride Flush 3 Ml Syringe) 3 ml IVFLUSH QSHIFT [facility] Last Admin: 10/22/22 07:43 Dose: 3 ml Vitamin D (Cholecalciferol (Vitamin D3) 10 Mcg Tablet) 10 mcg PO DAILY [facility] Last Admin: 10/22/22 07:45 Dose: 10 mcg Home Medications Medication Instructions Recorded Confirmed Last Taken Type Lactobacillus acidophilus 2 tab PO BID 10/21/22 10/21/22 Unknown History acetaminophen 500 mg tablet 1,000 mg PO TID PRN Pain, Mild 10/21/22 10/21/22 Unknown History amlodipine 10 mg tablet 10 mg PO DAILY 10/21/22 10/21/22 10/21/22 History ascorbic acid (vitamin C) 1,000 mg 1,000 mg PO BID 10/21/22 10/21/22 10/21/22 History tablet atenolol 100 mg tablet 100 mg PO BID 10/21/22 10/21/22 10/21/22 History atorvastatin 20 mg tablet 20 mg PO DAILY 10/21/22 10/21/22 Unknown History buprenorphine HCl 2 mg sublingual 4 mg sublingual TID 10/21/22 10/21/22 Unknown History tablet buspirone 5 mg tablet 5 mg PO DAILY 10/21/22 10/21/22 Unknown History buspirone 5 mg tablet 15 mg PO BEDTIME 10/21/22 10/21/22 Unknown History cetirizine 10 mg tablet 10 mg PO DAILY 10/21/22 10/21/22 Unknown History cholecalciferol (vitamin D3) 10 10 mcg PO DAILY 10/21/22 10/21/22 Unknown Histo ry mcg (400 unit) tablet escitalopram oxalate 20 mg tablet 20 mg PO DAILY 10/21/22 10/21/22 Unknown History fluticasone propionate 50 1 spray intranasal BID 10/21/22 10/21/22 Unknown History mcg/actuation nasal spray,suspension furosemide 40 mg tablet 40 mg PO DAILY 10/21/22 10/21/22 10/21/22 History lamotrigine 200 mg tablet 200 mg PO BID 10/21/22 10/21/22 Unknown History latanoprost 0.005 % eye drops 1 drp ophthalmic (eye) BEDTIME 10/21/22 10/21/22 Unknown History levothyroxine 75 mcg tablet 75 mcg PO DAILY 10/21/22 10/21/22 Unknown History lidocaine 5 % topical patch 3 patch topical DAILY 10/21/22 10/21/22 Unknown History lorazepam 0.5 mg tablet 0.5 mg PO DAILY PRN Anxiety 10/21/22 10/21/22 Unknown History losartan 100 mg tablet 100 mg PO DAILY 10/21/22 10/21/22 10/21/22 History meloxicam 15 mg tablet 15 mg PO DAILY 10/21/22 10/21/22 Unknown History methenamine hippurate 1 gram tablet 1 g PO BID 10/21/22 10/21/22 10/21/22 History multivitamin 1 tab PO DAILY 10/21/22 10/21/22 Unknown History omeprazole 20 mg capsule,delayed 20 mg PO BID@0630,1630 10/21/22 10/21/22 Unknown History release polyethylene glycol 3350 17 gram 17 g PO BID 10/21/22 10/21/22 Unknown History oral powder packet (Miralax) psyllium 1 packet PO BID 10/21/22 10/21/22 Unknown History Physical Exam Vital Signs: Vital Signs: Last Vital Signs Temp 96.9 F 10/22/22 15:08 Pulse 52 10/22/22 15:08 Resp 20 10/22/22 15:08 BP 149/65 H 10/22/22 15:08 Pulse Ox 97 10/22/22 15:08 O2 Del Method Room Air 10/22/22 15:08 BMI result Body Mass Index 23.4 Neuro: Other: She is alert and awake with normal spontaneity of speech fluency and comprehension. Face is symmetrical. Visual ramirez are full. Moderate muscle atrophy is noted. Deep tendon reflexes are absent with flexor plantars. Left foot is somewhat inverted and weak. Plantars are flat. Speech is normal Results Labs 10/22/22 06:12 10/22/22 06:12 Labs: Short CBC 10/22/22 Range/Units 06:12 WBC 4.2 L (4.8-10.8) X10*3/uL Hgb 12.6 (12.0-16.0) g/dl Hct 37.7 (37.0-47.0) % Plt Count 115 L (160-400) X10*3/uL BMP 10/22/22 06:12 Sodium 136 Potassium 5.2 H Chloride 97 Carbon Dioxide 31 H BUN 20 H Creatinine 0.74 Calcium 9.5 Liver Function 10/22/22 Range/Units 06:12 Total Bilirubin 0.5 (0.0-1.0) mg/dL AST 46 H (5-31) U/L ALT 39 H (0-31) U/L Alkaline Phosphatase 48 (39-117) U/L Albumin 4.4 (3.5-5.0) g/dL Noncontrast MRI of brain revealed moderate cerebral atrophy mild microvascular ischemic changes but no acute lesion. Assessment and Plan (1) Left arm weakness: Status: Acute 77 years old woman with complaint of left arm pain and weakness. At this time there was no indication of stroke. Pain was better. My recommendation is conservative management and maybe outpatient EMG nerve conduction study of left upper extremity. Time Spent With Patient Time: Total time managing care of this patient today ____ minutes. Procedures Date of Service Date of Service: 10/22/22
--- NOTE | 2022-10-22 16:28 | MHC.SL.SWA ---
Speech Pathologist Impression: Risk of Aspiration Due to: Neurological Condition Dysphasia Diet Status: WFL. Regular/thin, pills whole with liquid Liquid Consistency and Strategies for Safe Swallow: Liquid Intake Recommendation: Thin Liquid Intake Strategies: Unrestricted Solid Food Consistency: Dietary Recommendations: Regular Additional Modifications to Solid Foods: Patient is able to independently self feed. Allow patient to make preferred choices of food. Oral Medication Intake: Whole with Liquid Please contact the pharmacy regarding appropriate crushable or liquid drug formulations that are available whenever modified delivery is recommended. Compensatory Strategies and Precautions to be Taken for Safe Swallow: Sitting Upright (90 deg) Liquids from Cup Liquids from Straw Small Bites and Sips Alternate Liquids/Solids Supervision While Eating and Drinking for Safe Swallow: None Needed Foods to Avoid: n/a Swallowing Recommended Treatments: Recommendation for Speech: Further Testing Needed Comment: Patient seen for clinical swallow evaluation today s/p CVA. Patient at onset was put on puree diet with thin liquids by MD as a precaution. On evaluation, patient presents with all aspects of oral motor function and swallow function WFL. Recommend ADVANCE diet to Regular with thin liquids, pills whole with liquid. Patient reports history of word finding issues and stuttering issues during episodic seizures. Patient today presented with some mild word finding issues in her conversational speech. Recommend follow up Speech/Language evaluation to further assess communication needs. PROGRAMMER BUSINESS, RD advised of recommendations by secure text. Frequency/Duration: Date Range for Service Req: Timeline to reassess: Manager Telemarketing Clinican/Clinical Fellow: No Supervisory Statement: I have reviewed and agree with the student/clinical fellow's documentation: N/A Speech Language Pathologist: Nila Pollack M.A., [facility] WORKER
[2022-10-22] MEDS: busPIRone HCl 5 MG TABLET 15 MG PO (20:49)
[2022-10-22] MEDS: Latanoprost 0.005 % Ophth Sol 2.5 ML DROPS 1 DROP EYE-BOTH (20:53)
[2022-10-23] VITALS: BP 148/65; PULSE 53; RESP 16; TEMP 36.1; O2SAT 96
[2022-10-23 04:00] VITALS: BP 154/70; PULSE 59; RESP 18; TEMP 36.2; O2SAT 97
[2022-10-23 04:27] VITALS: PULSE 59; RESP 18; O2SAT 97
[2022-10-23] MEDS: Levothyroxine Sodium 75 MCG TABLET PO (05:41)
[2022-10-23] MEDS: Omeprazole 20 MG CAPSULE.DR PO (05:41)
[2022-10-23 07:27] VITALS: BP 140/80; PULSE 59; RESP 16; TEMP 37.1; O2SAT 96
[2022-10-23] MEDS: Buprenorphine HCL 2 MG TAB.SUBL 4 MG SUBLINGUAL (08:52)
[2022-10-23] MEDS: polyethylene glycoL 3350 17 GM POWD.PACK PO (08:52)
[2022-10-23] MEDS: Ascorbic Acid 500 MG TABLET 1000 MG PO (08:52)
[2022-10-23] MEDS: Cholecalciferol (Vitamin D3) 10 MCG TABLET PO (08:53)
[2022-10-23] MEDS: busPIRone HCl 5 MG TABLET PO (08:53)
[2022-10-23] MEDS: Escitalopram Oxalate 20 MG TABLET PO (08:53)
[2022-10-23] MEDS: Aspirin Enteric Coated 81 MG TABLET.DR PO (08:53)
[2022-10-23] MEDS: lamoTRIgine 100 MG TABLET 200 MG PO (08:53)
[2022-10-23] MEDS: Loratadine 10 MG TABLET PO (08:53)
[2022-10-23] MEDS: 0.9 % Sodium Chloride Flush 3 ML SYRINGE IVFLUSH (08:54)
[2022-10-23] MEDS: Multivitamin TABLET 1 TAB PO (08:54)
[2022-10-23] MEDS: Atorvastatin Calcium 40 MG TABLET PO (08:54)
[2022-10-23] MEDS: amLODIPine Besylate 10 MG TABLET PO (08:54)
[2022-10-23 09:04] LABS: Anion Gap 10 (12-20); Blood Urea Nitrogen 18 mg/dL (9-16); Calcium 9.3 mg/dL (8.4-10.2); Carbon Dioxide 30 mmol/L (22-29); Chloride 99 mmol/L (96-108); Creatinine Clr Calc Pharmacy 51.9; Estimated Glomerular Filt Rate > 60; Glucose Random 96 mg/dL (60-115); Potassium 4.4 mmol/L (3.3-5.1); Sodium 135 mmol/L (135-145)
--- NOTE | 2022-10-23 09:50 | P.DS_ITS ---
DS: Providers Provider Date of Service: 10/23/22 Date of admission: 10/21/22 15:49 Date of discharge: 10/23/22 Primary care physician: Debi Cisse MD Consults: 10/21/22 15:50 Consult to Neurology Routine Consulting Provider: Pierce Bailey Reason for consultation: stroke Attending physician on discharge: Jakub Jones Discharging clinician: Mary Rodriguez DS: Diagnosis Discharge Diagnosis (1) Left arm weakness: Status: Acute DS: Summary Hospital Course Hospital Course: From H&P on day of admission 77-year-old female with history of hypertension, hypercholesterolemia, peripheral neuropathy, hypothyroidism, depression, recurrent UTI, hypercholesterolemia, CARMEN on BiPAP, possible seizure disorder, resting tremor, and history of lymphoma s/p radiation of the left lower extremity lymph nodes presented to the ED earlier today for evaluation of left upper extremity weakness that started around 930 last night.? She then fell asleep in a chair and woke up somewhat disoriented and weak but fell back asleep.? This morning, states her left arm was much weaker than the right.? Denies any other focal deficits.? There was a mild headache last night which resolved.? She does have history of stroke about 30 years ago without any sequela known.? On arrival, vital stable, blood pressure 143/62.? Mild leukope molly of 3.7.? Platelets 104.? Renal function baseline.? Electrolytes normal except for mild hypercapnia of 37.? Troponin 4.3.? CXR unremarkable.? Head CT with findings consistent with possible evolving right frontal lobe and anterior limb of the right internal capsule infarct but no evidence of intracranial hemorrhage or significant mass effect.? Patient is outside of the window for tPA and is recommended for admission for further evaluation and monitoring of stroke.? Given 160 mg aspirin in the ED. Left Upper Extremity weakness. LKWT around 930pm night prior to admission, outside of tPA window. Head CT showing possible evolving right frontal lobe and anterior limb of the right internal capsule infarct. she had carotid US with no hemodynamically significant carotid stenosis. echo with severe diastolic dysfunction, preserved EF. MRI showed no acute stroke. she was seen by neurology who recommended outpatient EMG studies with her primary neurologist. PT/OT evaluated the patient and recommended home with services. At the time of discharge left upper extremity weakness had begun to improve. Hypertension. Blood pressure medications were initially placed on hold to allow permissive hypertension in the setting of possible stroke. Blood pressure medications will be resumed on discharge. Atenolol 100 mg twice daily will be placed on hold as blood pressure has been under adequate control and heart rate has remained in the 50s. Would recommend daily blood pressure monitoring with visiting nursing and follow up with PCP for blood pressure monitoring. Time Spent with Patient Time attestation: Total time managing care of this patient today ____ minutes. Discharge coordination time: Greater than 30 minutes Quality: Safe Use of Opioids Does Pt have an Active Cancer Diagnosis on the Problem List?: No Quality: Stroke Does the patient have a stroke diagnosis?: No Physical Exam Vital Signs: Vital Signs: Last Vital Signs Temp 98.7 F 10/23/22 07:27 Pulse 59 10/23/22 07:27 Resp 16 10/23/22 07:27 BP 140/80 H 10/23/22 07:27 Pulse Ox 96 10/23/22 07:27 O2 Del Method Room Air 10/23/22 07:27 BMI result Body Mass Index 23.4 Const: General: cooperative, comfortable, alert and awake Nutritional Appearance: average body habitus Orientation/consciousness: patient oriented x3 Resp: Effort & Inspection: normal respiratory effort, able to speak in complete sentences, no respiratory distress and no use of accessory muscles Cardio: Rate: regular rate Heart sounds: S1 normal heart sound present and S2 normal heart sound present GI: Inspection: No distended Palpation (GI): Soft to palpation and nontender Neuro: Other: LUE 3/5 RUE 5/5; lower extremity weakness chronic General: patient oriented x3 and CN's II-XI intact bilaterally Extrem: General: Yes no pedal edema DS: Data Data Completed and Pending Labs on day of discharge: Laboratory Results - last 24 hr 10/23/22 08:24 Sodium 135 Potassium 4.4 Chloride 99 Carbon Dioxide 30 H Anion Gap 10 L BUN 18 H Creatinine 0.79 Estim Creat Clear Calc 51.9 Estimated GFR > 60 Random Glucose 96 Calcium 9.3 Discharge Plan Discharge Anticipated Discharge Date/Time: 10/23/22 09:55 Patient Disposition: Home Health Service Discharge Diagnosis: left arm weakness Referrals: Angel FLORES [Outside] - 1 Week Debi Cisse MD [Primary Care Provider] - 1 Week Discharge Medications: Continued furosemide 40 mg tablet 40 mg PO DAILY atorvastatin 20 mg tablet 20 mg PO DAILY methenamine hippurate 1 gram tablet 1 g PO BID cetirizine 10 mg Tablet 10 mg PO DAILY amlodipine 10 mg tablet 10 mg PO DAILY losartan 100 mg Tablet 100 mg PO DAILY latanoprost 0.005 % Drops 1 drp OPHTHALMIC (EYE) BEDTIME buspirone 5 mg Tablet 5 mg PO DAILY buspirone 5 mg Tablet 15 mg PO BEDTIME ascorbic acid (vitamin C) 1,000 mg Tablet 1,000 mg PO BID lamotrigine 200 mg Tablet 200 mg PO BID polyethylene glycol 3350 [Miralax] 17 gram Powder In Packet 17 g PO BID meloxicam 15 mg Tablet 15 mg PO DAILY psyllium Packet 1 packet PO BID Rx Instructions: mix into at least 8 oz of water or juice before administering levothyroxine 75 mcg Tablet 75 mcg PO DAILY lorazepam 0.5 mg Tablet 0.5 mg PO DAILY PRN (Reason: Anxiety) omeprazole 20 mg Capsule,Delayed Release(Dr/Ec) 20 mg PO BID@0630,1630 escitalopram oxalate 20 mg Tablet 20 mg PO DAILY multivitamin Tablet 1 tab PO DAILY cholecalciferol (vitamin D3) 10 mcg (400 unit) Tablet 10 mcg PO DAILY buprenorphine HCl 2 mg Tablet, Sublingual 4 mg SUBLINGUAL TID acetaminophen 500 mg Tablet 1,000 mg PO TID PRN (Reason: Pain, Mild) lidocaine 5 % Adhesive Patch,Medicated 3 patch TOPICAL DAILY Rx Instructions: leave on most painful area for up to 12 hrs fluticasone propionate 50 mcg/actuation [place],Suspension 1 spray INTRANASAL BID Rx Instructions: administer into each nostril Lactobacillus acidophilus Tablet,Chewable 2 tab PO BID Held atenolol 100 mg Tablet 100 mg PO BID Hold Instructions: hold until follow up with PCP. monitor BP and heart rate daily Discharge Orders: Discharge Order (Routine); Ordered 10/23/22 Ordered By: Mary Rodriguez Activity on Discharge: As tolerated Stand Alone Forms: Patient Portal Discharge page Care Plan Goals: improvement in left arm weakness Health Concerns: left arm weakness Plan of Treatment: outpatient follow up with primary neurologist for consideration of EMG studies if arm weakness does not improve discharge home with Physical therapy and VNA HR has been low, hold atenolol until follow up with PCP - VNA should monitor blood pressure and heart rate Assessment: see discharge summary Discharge Date/Time: 10/23/22 13:45
--- NOTE | 2022-10-23 10:11 | MHC.CM.PN ---
Per ROUNDS discussion, Patient will be medically cleared for dc to home today with services. A referral has been made to NA, who is aware of today's dc. Last IMM addressed yesterday.
--- NOTE | 2022-10-23 10:39 | P.F2F_ITS ---
Service Date Service Date: 10/23/22 Encounter Date of encounter: 10/23/22 Reasons for Services Signs and symptoms assessed: needs retirement for blood pressure and heart rate monitoring due to adjustment in blood pressure medication Reason for retirement: other Reason for physical therapy: home safety and mobility and therapeutic exercises Overseeing Care: Debi Cisse Homebound: Leaving the home is medically contraindicated at this time without the asist of a device and/or another person due th the listed conditions above and below. Reason homebound: unsteady gait / fall risk, poor balance / fall risk and other (arm weakness) Certification: Based on the above findings, I certify that this patient is confined to the home and needs intermittent retirement care, physical therapy and/or speech therapy, or continues to need occupational therapy. The patient is under my care, and I have initiated the establishment of the plan of care. The patient will be followed by a physician who will periodically review the plan of care. Time Spent With Patient Time: Total time managing care of this patient today ____ minutes.
[2022-10-23 11:28] VITALS: BP 115/55; PULSE 65; RESP 16; TEMP 36.7; O2SAT 97
== END 2022-10-23 13:45 | disposition home health service (06) | DRG 92 ==
LOC: HO.ED 13:13 → HO.EDOVER 16:06 → HO.IMC 16:13
PROVIDERS: Admitting Provider Physician Assistant; Emergency Provider Emergency Medicine Emergency Medical Services; PCP Family Medicine; Visit Provider Physician Assistant Medical
DX: G83.24 Monoplegia of upper limb affecting left nondominant side (principal); I50.32 Chronic diastolic (congestive) heart failure; Z66 Do not resuscitate; K21.9 Gastro-esophageal reflux disease without esophagitis; F41.9 Anxiety disorder, unspecified; E03.9 Hypothyroidism, unspecified; G25.2 Other specified forms of tremor; G47.33 Obstructive sleep apnea (adult) (pediatric); R29.702 NIHSS score 2; I11.0 Hypertensive heart disease with heart failure; E87.5 Hyperkalemia; G40.909 Epilepsy, unspecified, not intractable, without status epilepticus; R32 Unspecified urinary incontinence; G62.9 Polyneuropathy, unspecified; E78.00 Pure hypercholesterolemia, unspecified; Z87.440 Personal history of urinary (tract) infections; G43.909 Migraine, unspecified, not intractable, without status migrainosus; Z88.2 Allergy status to sulfonamides; Z79.2 Long term (current) use of antibiotics; Z79.890 Hormone replacement therapy; Z79.899 Other long term (current) drug therapy
CPT/HCPCS: 36415; 70450; 70551; 71045; 80048; 80053; 80061; 83690; 84484; 85025; 85610; 85730; 92610; 93005; 93306; 93356; 93880; 94660; 97162; 97166; 97535; 99285; J0571

== ENCOUNTER 2022-11-22 21:02 | Inpatient (IN) | payer MEDICARE, OTHER, SELFPAY ==
--- NOTE | ~2022-11-22 | XR_ITS ---
EXAMINATION: XR CHEST CLINICAL INFORMATION: Chest pain COMPARISON: 10/21/2022 TECHNIQUE: Frontal view of the chest was obtained. FINDINGS: Mild elevation of the right hemidiaphragm. No consolidation, edema, or effusion. No pneumothorax. The cardiomediastinal silhouette is within normal limits. Mild degenerative changes of the shoulders. XR/XR chest 1V IMPRESSION: No acute pulmonary disease.
--- NOTE | ~2022-11-22 | XR_ITS ---
EXAMINATION: XR HIP, RIGHT WITH AP PELVIS CLINICAL INFORMATION: Right hip pain. COMPARISON: Pelvis and right hip x-rays of 01/04/2022. Pelvic x-rays of 02/20/2010 TECHNIQUE: Pelvis 1 view. Right hip 2 views. AP view of the pelvis and AP and lateral views of the right hip were obtained. FINDINGS: Femoral heads are well-seated in the respective acetabula. Mild osteoarthritic changes are noted at the bilateral hip joints with narrowing of the joint spaces, subarticular sclerosis and mild marginal osteophytic changes. Pubic symphysis is intact. Limited evaluation of the sacroiliac joints is unremarkable. There is no evidence of acute fracture or dislocation in the pelvis and right hip. Patchy sclerosis in the left ischium is a stable chronic finding when compared to previous x-ray of 2009. Lower lumbar spondylosis. XR/XR hip RT w PEL1V IMPRESSION: No evidence of acute fracture or dislocation in the pelvis and right hip. Chronic changes in the left ischium as described above. Mild osteoarthritic changes in the bilateral hips are stable.
[2022-11-22 21:07] VITALS: BP 148/65; BP 160/76; PULSE 90; RESP 19; TEMP 38.1; O2SAT 95; O2SAT 96; BMI 28.0
--- NOTE | 2022-11-22 21:21 | ECG_ITS ---
Test Reason : HIP PAIN Blood Pressure : / mmHG Vent. Rate : 093 BPM Atrial Rate : 093 BPM P-R Int : 156 ms QRS Dur : 090 ms QT Int : 342 ms P-R-T Axes : 079 031 060 degrees QTc Int : 425 ms Normal sinus rhythm Septal infarct (cited on or before 09-OCT-2009) Abnormal ECG When compared with ECG of 21-OCT-2022 13:06, Vent. rate has increased BY 41 BPM Referred By: Mckayla Rosario Electronically Signed By:ALBIN PARRA MD
--- OUTSIDE RECORDS SUMMARY | 2022-11-22 21:25 | XMS_ITS | Continuity of Care Document ---
Author Name Unknown Organization [facility] Address [address] [place] [address]- Care Team Providers Care Gas Pumper Name Role Phone Betito OSORIO, Debi Lizama Primary Care Physician Encounter [facility] Date(s): 04/10/22 - 05/10/22 [facility] [address] [place] [address]- [place] Allergies, Adverse Reactions, Alerts Substance Reaction Severity Status phenobarbital Active sulfa drugs Active Active Vasotec ULCERS IN MOUTH Active Dust Dust allergy tongue swells Active Shrimp MOUTH SWELLED Active Other Food Allergy 1 SWELLING OF MOUTH Crab Active Lobster BLOODY STOOLS Active 1CRAB Immunizations Given and Recorded Vaccine Date Status Refusal Reason Influenza Virus Vaccine (oldterm) 02/26/21 Recorde d Influenza Virus Vaccine (oldterm) 02/13/20 Recorde d Influenza Virus Vaccine (oldterm) 1 03/14/14 Given influenza virus vaccine, inactivated 02/12/19 Agustín rded influenza virus vaccine, inactivated 03/24/18 Agustín rded influenza virus vaccine, inactivated 03/14/18 Agustín rded influenza virus vaccine, inactivated 2 03/23/17 Re corded influenza virus vaccine, inactivated 3 02/27/16 Re corded influenza virus vaccine, inactivated 02/26/16 Agustín rded influenza virus vaccine, inactivated 4 02/22/15 Re corded pneumococcal 13-valent vaccine 10/04/14 Given FluLaval (oldterm) 06/24/12 Given tetanus/diphtheria/pertussis, acel(Tdap) 01/29/11 Given Pneumococcal Vacc (oldterm) 5 08/12/09 Given 1Admin Note: [facility] 2Location History: fdc 3Result Comment: [06/04/2016] donna 4Result Comment: [04/08/2015] L&C 5Admin Note: DR. PASTOR, [place] Medications amLODIPine 10 mg oral tablet See Instructions, TAKE 1 TABLET BY MOUTH DAILY, # 90 each, 3 Refills, 09/24/21 10:21:00 EDT, [facility] #[id number], 168, cm, 09/24/21 10:10:00 EDT, Height Start Date: 09/24/21 Status: Ordered atenolol 100 mg oral tablet 1 tablet = 100 mg, By Mouth, 2 times a day, 0 Refills, Maintenance, 10/05/16 9:40:42 Start Date: 10/05/16 Stop Date: 11/07/16 Status: Ordered atorvastatin 20 mg oral tablet 1 tablet, By Mouth, Daily, for 90 days, # 90 tablet, 3 Refills, Physician Stop 09/19/22 10:25:00 EDT, 09/24/21 10:25:00 EDT, [facility] #[id number], 168, cm, 09/24/21 10:10:00 EDT, Height Start Date: 09/24/21 Stop Date: 09/19/22 Status: Ordered Belbuca 300 mcg buccal film 1 each = 300 mcg, Every 12 hours, 0 Refills, Maintenance, 09/24/21 10:12:00 EDT, Partial fill upon patient request if the prescription is for a schedule II opioid drug. Start Date: 09/24/21 Status: Ordered busPIRone 5 mg oral tablet 5 mg, 1, tablet, By Mouth, 3 times a day, # 90 tablet, Refills 0, Maintenance, 09/24/21 10:12:00 EDT, Partial fill upon patient request if the prescription is for a schedule II opioid drug. Start Date: 09/24/21 Status: Ordered Compression Stockings See Instructions, # 1 pair, Refills 1, Tot. Refills 1, Maintenance, surgical, knee length 20-30 mm Hg dx: lymphedema, 04/19/17 10:29:54, Compound Start Date: 04/19/17 Status: Ordered cranberry pills cranberry pills, Refills 0, Maintenance, 12/26/18 9:59:44 EDT, Compound Start Date: 12/26/18 Status: Ordered duloxetine 60 mg oral enteric coated capsule 1 capsule = 60 mg, By Mouth, Daily, # 30 capsule, 0 Refills, Maintenance, 09/24/21 10:12:00 EDT, ECCapsule, Partial fill upon patient request if the prescription is for a schedule II opioid drug. Start Date: 09/24/21 Status: Ordered fluticasone 50 mcg/inh nasal spray 1 sprays, Nares, Both, 2 times a day, # 1 each, 5 Refills, Maintenance, [place] Start Date: 03/15/13 Stop Date: 09/11/13 Status: Ordered furosemide 40 mg oral tablet 40 mg, 1, tablet, By Mouth, Daily, # 30 tablet, Refills 0, Maintenance, 04/08/22 15:08:00 EDT, Partial fill upon patient request if the prescription is for a schedule II opioid drug. Start Date: 04/08/22 Stop Date: 05/08/22 Status: Ordered ipratropium nasal 21 mcg/inh spray See Instructions, PRN Nasal Congestion, 1 spray each nostril BID, # 1 each, 4 Refills, Maintenance,01/01/22 16:02:00 EDT, [facility] #[id number], Partial fill upon patient request if the prescription is for a schedule II opioid drug., 1 spray ea... Start Date: 01/01/22 Status: Ordered iVAPS to target VA 45.5, EPAP 9, PS min 4, PS max 15, rate 18 with heated humidification iVAPS to target [place] 45.5, EPAP 9, PS min 4, PS max 15, rate 18 with heated humidification, See Instructions, # 1 each, Refills 0, Tot. Refills 0, Maintenance, [facility], 08/15/20 12:05:00 EST, Compound Start Date: 08/15/20 Status: Ordered L Marko Knee CHECK knee orthosis, wear daily L Marko Knee CHECK knee orthosis, wear daily, See Instructions, # 1 each, Refills 0, Tot. Refills 0, Maintenance, dx M21.862 dx Q 68.2, 09/02/17 13:51:26, Compound Start Date: 09/02/17 Status: Ordered L foot brace L foot brace, See Instructions, # 1 each, Refills 0, Tot. Refills 0, Maintenance, L foot brace dx: L foot drop, 04/14/19 14:42:56 EDT, Compound Start Date: 04/14/19 Status: Ordered lamotrigine 100 mg oral tablet 2, tablet, By Mouth, 2 times a day, # 360 tablet, Refills 3, Route to Pharmacy Electronically, [facility] #[id number], 168, cm, 03/27/21 14:00:00 EDT, Height, 94.4, kg, 06/05/19 9:38:00 EST, DryWeight Start Date: 04/04/21 Status: Ordered levothyroxine 0.075 mg oral tablet 0 Refills, Maintenance, 08/15/19 15:34:00 EST Start Date: 08/15/19 Status: Ordered Lorazepam = 0.5 mg, By Mouth, prn, 0 Refills, Maintenance, 08/15/19 15:31:00 EST Start Date: 08/15/19 Status: Ordered losartan 100 mg oral tablet 1 tablet = 100 mg, By Mouth, Daily, To replace valsartan, # 90 tablet, 3 Refills, Maintenance, 04/12/20 10:50:00 EDT, Tablet, [facility] #[id number], 162.56, cm, 03/01/20 14:13:00 EDT, Height, 94.4, kg, 06/05/19 9:38:00 EST, Dry Weight Start Date: 04/12/20 Status: Ordered Metamucil 3.4 gm/5.2 gm oral powder for reconstitution = 3.4 Gm, By Mouth, 2 times a day, 0 Refills, Maintenance, 05/23/20 10:15:00 EST, Partial fill uponpatient request if the prescription is for a schedule II opioid drug. Start Date: 05/23/20 Status: Ordered methenamine hippurate 1 gm oral tablet See Instructions, TAKE 1 TABLET BY MOUTH TWICE DAILY, # 180 each, 3 Refills, Maintenance, 02/04/22 10:46:00 EDT, [facility] #[id number], 168, cm, 02/04/22 10:23:00 EDT, Height Start Date: 02/04/22 Status: Ordered MiraLax Powder = 17 Gm, By Mouth, 2 times a day, 0 Refills, Maintenance, 05/26/10 15:29:33 EST Start Date: 05/26/10 Status: Ordered Multivitamin By Mouth, Daily, 0 Refills, Maintenance, 08/01/14 16:38:28 Start Date: 08/01/14 Status: Ordered Nasacort Allergy 24HR 2 sprays, Daily, 0 Refills, Maintenance, 04/23/16 10:07:54 Start Date: 04/23/16 Status: Ordered omeprazole 20mg omeprazole 20mg, By Mouth, Daily, Refills 0, Maintenance, 12/26/18 10:00:30 EDT, Compound Start Date: 12/26/18 Status: Ordered pregabalin 75 mg oral capsule 1 capsule = 75 mg, By Mouth, Daily, 0 Refills, Maintenance, 09/24/21 10:13:00 EDT, Partial fill upon patient request if the prescription is for a schedule II opioid drug. Start Date: 09/24/21 Status: Ordered Vitamin C 1000 mg oral tablet 1 tablet = 1,000 mg, By Mouth, 2 times a day, # 60 tablet, 0 Refills, Maintenance, 10/30/19 13:41:00 EDT, Tablet, [facility] #[id number], 162.56, cm, 08/17/19 16:32:00 EST, Height, 94.4, kg, 06/05/19 9:38:00 EST, Dry Weight Start Date: 10/30/19 Status: Ordered Vitamin D3 By Mouth, Daily, 0 Refills, Maintenance, 08/15/19 15:33:00 EST Start Date: 08/15/19 Status: Ordered Problem List Condition Confirmation Course Effective Dates Status Health Status Informant Anxiety Confirmed Active Vaginal atrophy Confirmed Active Pseudomonas infection Confirmed Active Chronic UTI (urinary tract infection) Confirmed Active Constipation Confirmed Active Depression Confirmed Active GERD - Gastro-esophageal reflux disease Confirmed Active Chronic left hip pain Confirmed Active History of cancer of the bone Confirmed Active History of radiation therapy Confirmed Active Hypercholesterolemia Confirmed Active Hypertension Confirmed Active Hypertension Confirmed Active Hypothyroidism Confirmed Active Idiopathic peripheral neuropathy Confirmed Active Incomplete bladder emptying Confirmed Active Lymphoma, unspecified Confirmed 09/02/10 Active Migraine Confirmed Active CARMEN on CPAP Confirmed Active Resting tremor Confirmed Active Restless leg syndrome Confirmed Active Unspecified Idiopathic Peripheral Neuropathy Confirmed 09/02/10 Active Urinary incontinence Confirmed Active Social History Social History Type Response Smoking Status Former smoker entered on: 10/04/14 Sex Patient Care team information Care Team Personnel Name: Marianne Perez RN Position: [facility] RN Member Role: Primary Care Nurse Name: Debi Cisse MD Position: [facility] Primary Care Physician Member Role: PCP Address: Address: [address] [place] [address] [place], [place] [address] Name: Viola Gonzalez Position: [facility] Outreach Member Role: Lifetime Consulting Physician Care Team Related Persons Name: ITZEL GARCIA Name: AILYN ANDERSON Name: [employer]
--- OUTSIDE RECORDS SUMMARY | 2022-11-22 21:25 | XMS_ITS | Continuity of Care Document ---
Author Name Unknown Organization [facility] Address [address] [place] [address]- Care Team Providers Care Microsoft Dynamics Ax Developer Name Role Phone Betito OSORIO, Debi Lizama Primary Care Physician Encounter [facility] NBR [id number] Date(s): 01/18/20 - 02/17/20 [facility] [address] [place] [address]- Allergies, Adverse Reactions, Alerts Substance Reaction Severity Status ciprofloxacin Itchy Active phenobarbital Active sulfa drugs Active Active Vasotec ULCERS IN MOUTH Active Dust Dust allergy tongue swells Active Lobster BLOODY STOOLS Active Shrimp MOUTH SWELLED Active Other Food Allergy 1 SWELLING OF MOUTH Crab Active 1CRAB Immunizations Given and Recorded Vaccine Date Status Refusal Reason influenza virus vaccine, inactivated 02/12/19 Agustín rded influenza virus vaccine, inactivated 03/14/18 Agustín rded influenza virus vaccine, inactivated 1 03/23/17 Re corded influenza virus vaccine, inactivated 2 02/27/16 Re corded influenza virus vaccine, inactivated 3 02/22/15 Re corded pneumococcal 13-valent vaccine 10/04/14 Given Influenza Virus Vaccine (oldterm) 4 03/14/14 Given FluLaval (oldterm) 06/24/12 Given tetanus/diphtheria/pertussis, acel(Tdap) 01/29/11 Given Pneumococcal Vacc (oldterm) 5 08/12/09 Given 1Location History: half-way 2Result Comment: [06/04/2016] donna 3Result Comment: [04/08/2015] L&C 4Admin Note: [facility] 5Admin Note: DR. PASTOR, [facility] amLODIPine 10 mg oral tablet 1 tablet, By Mouth, Daily, # 90 tablet, 0 Refills, Maintenance, 01/28/20 8:43:00 EDT, [facility] #[id number], 162.56, cm, 10/30/19 13:47:00 EDT, Height, 94.4, kg, 06/05/19 9:38:00 EST, Dry Weight Start Date: 01/28/20 Status: Ordered atenolol 100 mg oral tablet 1 tablet = 100 mg, By Mouth, 2 times a day, 0 Refills, Maintenance, 10/05/16 9:40:42 Start Date: 10/05/16 Stop Date: 11/07/16 Status: Ordered atorvastatin 20 mg oral tablet 1 tablet = 20 mg, By Mouth, Daily, # 90 tablet, 3 Refills, Maintenance, 09/20/19 11:46:00 EDT, Tablet, [facility] #[id number], 162.56, cm, 08/17/19 16:32:00 EST, Height, 94.4, kg, 06/05/19 9:38:00 EST, Dry Weight Start Date: 09/20/19 Status: Ordered Calcium Barbonate 650mg Calcium Barbonate 650mg, Refills 0, Maintenance, 06/05/19 9:57:00 EST, Compound Start Date: 06/05/19 Status: Ordered calcium barbonate 650mg calcium barbonate 650mg, Refills 0, Maintenance, 04/23/16 10:10:10, Compound Start Date: 04/23/16 Status: Ordered cephalexin monohydrate 250 mg oral capsule 1 capsule = 250 mg, By Mouth, Daily at bedtime, # 30 capsule, 4 Refills, Acute 03/31/20 13:44:00 EDT, 10/30/19 13:42:00 EDT, [facility] #[id number], 162.56, cm, 08/17/19 16:32:00 EST, Height, 94.4, kg, 06/05/19 9:38:00 EST, Dry Weight Start Date: 10/30/19 Stop Date: 03/31/20 Status: Ordered Claritin Tablet 10 mg, By Mouth, Daily, Maintenance, 10/24/12 13:31:19 Start Date: 10/24/12 Status: Ordered Compression Stockings See Instructions, # 1 pair, Refills 1, Tot. Refills 1, Maintenance, surgical, knee length 20-30 mm Hg dx: lymphedema, 04/19/17 10:29:54, Compound Start Date: 04/19/17 Status: Ordered cranberry pills cranberry pills, Refills 0, Maintenance, 12/26/18 9:59:44 EDT, Compound Start Date: 12/26/18 Status: Ordered ferrous sulfate 325 mg oral tablet 1 tablet = 325 mg, By Mouth, 3 times a day, May take once daily and increase to 3 times a day if tolerated; take with vitamin C, # 90 tablet, 2 Refills, Maintenance, 08/18/19 13:10:00 EST, Tablet, [facility] #[id number], 162.56, cm, 08/17/19 16:3... Start Date: 08/18/19 Status: Ordered fluticasone 50 mcg/inh nasal spray 1 sprays, Nares, Both, 2 times a day, # 1 each, 5 Refills, Maintenance, [place] Start Date: 03/15/13 Stop Date: 09/11/13 Status: Ordered furosemide 20 mg oral tablet 40 mg, 2, tablet, By Mouth, Daily, # 180 tablet, Refills 3, Tot. Refills 3, Maintenance, 03/24/19 8:27:15 EDT, Route to Pharmacy Electronically, [id number], [facility] #[id number] Start Date: 03/24/19 Stop Date: 03/18/20 Status: Ordered grapeseed 600mg grapeseed 600mg, Refills 0, Maintenance, 01/07/17 10:36:55, Compound Start Date: 01/07/17 Status: Ordered ibuprofen 800 mg oral tablet 800 mg, 1, tablet, By Mouth, 3 times a day, Refills 0, Maintenance, 06/20/18 9:23:45 EST Start Date: 06/20/18 Status: Ordered Imvexxy Starter Pack 10 mcg vaginal insert See Instructions, insert Vaginally Daily twice weekly, # 18 supp, 1 Refills, Maintenance, 02/01/20 9:41:00 EDT, [facility], 162.56, cm, 01/29/20 10:10:00 EDT, Height, 94.4, kg, 06/05/19 9:38:00 EST, Dry Weight Start Date: 02/01/20 Status: Ordered L Marko Knee CHECK knee [...] times a day, # 360 tablet, Refills 1, Tot. Refills 0, Maintenance, 09/19/19 7:36:00 EDT, Route to Pharmacy Electronically, [facility] #[id number], 162.56, cm, 08/17/19 16:32:00 EST, Height, 94.4, kg, 06/05/19 9:38:00 EST, D... Start Date: 09/19/19 Status: Ordered levothyroxine 0.075 mg oral tablet 0 Refills, Maintenance, 08/15/19 15:34:00 EST Start Date: 08/15/19 Status: Ordered Lorazepam = 0.5 mg, 0 Refills, Maintenance, 08/15/19 15:31:00 EST Start Date: 08/15/19 Status: Ordered losartan 100 mg oral tablet 1 tablet = 100 mg, By Mouth, Daily, To replace valsartan, # 90 tablet, 3 Refills, Maintenance, 04/13/19 15:02:15 EDT, Tablet Start Date: 04/13/19 Status: Ordered methenamine hippurate 1 gm oral tablet 1 tablet = 1 Gm, By Mouth, 2 times a day, for 30 days, # 60 tablet, 5 Refills, Acute 04/27/20 16:37:00 EST, 10/30/19 16:37:00 EDT, Tablet, [facility] #[id number], 162.56, cm, 10/30/19 13:47:00 EDT, Height, 94.4, kg, 06/05/19 9:38:00 EST, Dry Weight Start Date: 10/30/19 Stop Date: 04/27/20 Status: Ordered MiraLax Powder = 17 Gm, By Mouth, Daily, 0 Refills, Maintenance Start Date: 05/26/10 Status: Ordered Mirtazapine = 45 mg, By Mouth, Daily at bedtime, # 60 each, 0 Refills, Maintenance, 10/24/12 13:33:44 Start Date: 10/24/12 Stop Date: 04/14/13 Status: Ordered Multivitamin Daily, 0 Refills, Maintenance, 12/26/18 10:01:05 EDT Start Date: 12/26/18 Status: Ordered Multivitamin By Mouth, Daily, 0 Refills, Maintenance, 08/01/14 16:38:28 Start Date: 08/01/14 Status: Ordered Nasacort Allergy 24HR 2 sprays, Daily, 0 Refills, Maintenance, 04/23/16 10:07:54 Start Date: 04/23/16 Status: Ordered omeprazole 20mg omeprazole 20mg, Refills 0, Maintenance, 12/26/18 10:00:30 EDT, Compound Start Date: 12/26/18 Status: Ordered tiZANidine 4 mg oral capsule 1 capsule = 4 mg, By Mouth, 3 times a day, # 90 capsule, 0 Refills, Maintenance, 12/14/19 10:30:00 EDT, Capsule Start Date: 12/14/19 Status: Ordered Vitamin B Complex oral tablet, extended release 1 tablet, By Mouth, Daily, 0 Refills, Maintenance, 08/01/14 16:37:50 Start Date: 08/01/14 Status: Ordered Vitamin C 1000 mg oral tablet 1 tablet = 1,000 mg, By Mouth, 2 times a day, # 60 tablet, 0 Refills, Maintenance, 10/30/19 13:41:00 EDT, Tablet, [facility] #[id number], 162.56, cm, 08/17/19 16:32:00 EST, Height, 94.4, kg, 06/05/19 9:38:00 EST, Dry Weight Start Date: 10/30/19 Status: Ordered Vitamin D3 By Mouth, Daily, 0 Refills, Maintenance, 08/15/19 15:33:00 EST Start Date: 08/15/19 Status: Ordered Vitamin D3 400 intl units oral capsule 1 capsule = 400 International_Units, By Mouth, Daily, 0 Refills, Maintenance, 01/07/17 10:38:46 Start Date: 01/07/17 Status: Ordered Zoloft 100 mg oral tablet 2 tablet = 200 mg, By Mouth, Daily, PLEASE FOLLOW UP FOR ADDITIONAL REFILLS., # 60 tablet, 0 Refills, Maintenance, 11/30/18 16:40:16 EDT, Tablet Start Date: 11/30/18 Status: Ordered Problem List Condition Effective Dates Status Health Status Inform ant Anxiety(Confirmed) Active Vaginal atrophy(Confirmed) Active Chronic hepatitis C(Confirmed) Active Chronic UTI (urinary tract infection)(Confirmed) Active Constipation(Confirmed) Active Depression(Confirmed) Active GERD - Gastro-esophageal ref lux disease(Confirmed) Active Chronic left hip pain(Confirmed) Active History of cancer of the bone(Confirmed) Active History of radiation therapy(Confirmed) Active Hypercholesterolemia(Confirmed) Active Hypertension(Confirmed) Active Hypothyroidism(Confirmed) Active Idiopathic peripheral neuropathy(Confirmed) Active Incomplete bladder emptying(Confirmed) Active Lymphoma, unspecified(Confirmed) 09/02/10 Active Migraine(Confirmed) Active Restless leg syndrome(Confirmed) Active 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
--- OUTSIDE RECORDS SUMMARY | 2022-11-22 21:25 | XMS_ITS | Continuity of Care Document ---
Author Name Unknown Organization [facility] Address [address] [place] [id number]- Care Team Providers Care Field Health Officer Name Role Phone Betito OSORIO, Debi Lizama Primary Care Physician [phone] [place] [facility] [place]s): 08/15/20 - 09/14/20 [facility] [address] [id number] Attending Physician: Josy Morgan Admitting Physician: Josy Morgan Referring Physician: AdmtrJosy Allergies, Adverse Reactions, Alerts Substance Reaction Severity Status ciprofloxacin Itchy Active phenobarbital Active sulfa drugs Active Active Vasotec ULCERS IN MOUTH Active Dust Dust allergy tongue swells Active Lobster BLOODY STOOLS Active Shrimp MOUTH SWELLED Active Other Food Allergy 1 SWELLING OF MOUTH Crab Active 1CRAB Immunizations Given and Recorded Vaccine Date Status Refusal Reason Influenza Virus Vaccine (oldterm) 02/13/20 Recorde d Influenza Virus Vaccine (oldterm) 1 03/14/14 Given influenza virus vaccine, inactivated 02/12/19 Agustín rded influenza virus vaccine, inactivated 03/14/18 Agustín rded influenza virus vaccine, inactivated 2 03/23/17 Re corded influenza virus vaccine, inactivated 3 02/27/16 Re corded influenza virus vaccine, inactivated 4 02/22/15 Re corded pneumococcal 13-valent vaccine 10/04/14 Given FluLaval (oldterm) 06/24/12 Given tetanus/diphtheria/pertussis, acel(Tdap) 01/29/11 Given Pneumococcal Vacc (oldterm) 5 08/12/09 Given 1Admin Note: [facility] 2Location History[facility] 3Result Comment: [06/04/2016] donna 4Result Comment: [04/08/2015] L&C 5Admin Note: DR. PASTOR, [facility] Medications amLODIPine 10 mg oral tablet 1 tablet, By Mouth, Daily, # 90 tablet, 3 Refills, Maintenance, 04/12/20 10:49:00 EDT, [facility] #[id number], 162.56, cm, 03/01/20 14:13:00 EDT, Height, 94.4, kg, 06/05/19 9:38:00 EST, Dry Weight Start Date: 04/12/20 Status: Ordered atenolol 100 mg oral tablet 1 tablet = 100 mg, By Mouth, 2 times a day, 0 Refills, Maintenance, 10/05/16 9:40:42 Start Date: 10/05/16 Stop Date: 11/07/16 Status: Ordered atorvastatin 20 mg oral tablet 1 tablet = 20 mg, By Mouth, Daily, # 90 tablet, 1 Refills, Maintenance, 09/07/20 9:48:00 EDT, Tablet, [facility] #[id number], 168, cm, 05/23/20 10:09:00 EST, Height, 94.4, kg, 06/05/19 9:38:00 EST, Dry Weight Start Date: 09/07/20 Status: Ordered Claritin Tablet 10 mg, By [...] 2 Refills, Maintenance, 08/18/19 13:10:00 EST, Tablet, [email or web address] #[id number], 162.56, cm, 08/17/19 16:3... Start Date: 08/18/19 Status: Ordered fluticasone 50 mcg/inh nasal spray 1 sprays, Nares, Both, 2 times a day, # 1 each, 5 Refills, Maintenance, [place] Start Date: 03/15/13 Stop Date: 09/11/13 Status: Ordered furosemide 20 mg oral tablet 40 mg, 2, tablet, By Mouth, Daily, # 180 tablet, Refills 3, Tot. Refills 3, Maintenance, 03/11/20 14:33:00 EDT, Route to Pharmacy Electronically, [facility] #[id number], 162.56, cm, 03/01/20 14:13:00 EDT, Height, 94.4, kg, 06/05/19 9:38:00 EST, D... Start Date: 03/11/20 Stop Date: 03/06/21 Status: Ordered ibuprofen 800 mg oral tablet 800 mg, 1, tablet, By Mouth, 3 times a day, Refills 0, Maintenance, 06/20/18 9:23:45 EST Start Date: 06/20/18 Status: Ordered ipratropium nasal 21 mcg/inh spray See Instructions, PRN Nasal Congestion, 1 spray each nostril BID, # 1 each, 4 Refills, Maintenance,07/17/20 12:08:00 EST, [facility] #[id number], Partial fill upon patient request if the prescription is for a schedule II opioid drug., 1 spray ea... Start Date: 07/17/20 Status: Ordered iVAPS to target VA 45.5, EPAP 9, PS min 4, PS max 15, rate 18 with heated humidification iVAPS to target VA 45.5, EPAP 9, PS min 4, PS max 15, rate 18 with heated humidification, See Instructions, # 1 each, Refills 0, Tot. Refills 0, Maintenance, use overnight and naps from [facility], 08/15/20 12:05:00 EST, Compound Start Date: 08/15/20 [...] tablet, Refills 1, Tot. Refills 0, Maintenance, 05/13/20 10:26:00 EST, Route to Pharmacy Electronically, [facility] #[id number], 162.56, cm, 04/15/20 14:37:00 EST, Height, 94.4, kg, 06/05/19 9:38:00 EST,... Start Date: 05/13/20 Status: Ordered levothyroxine 0.075 mg oral tablet 0 Refills, Maintenance, 08/15/19 15:34:00 EST Start Date: 08/15/19 Status: Ordered Lorazepam = 0.5 mg, By Mouth, prn, 0 Refills, Maintenance, 08/15/19 15:31:00 EST Start Date: 08/15/19 Status: Ordered losartan 100 mg oral tablet 1 tablet = 100 mg, By Mouth, Daily, To replace valsartan, # 90 tablet, 3 Refills, Maintenance, 04/12/20 10:50:00 EDT, Tablet, [facility] #[id number], 162.56, cm, 03/01/20 14:13:00 EDT, Height, 94.4, [...] days, # 60 tablet, 5 Refills, Acute 10/24/20 16:37:00 EDT, 04/27/20 16:37:00 EST, Tablet, [facility] #[id number], 162.56, cm, 04/15/20 14:37:00 EST, Height, 94.4, kg, 06/05/19 9:38:00 EST, Dry Weight Start Date: 04/27/20 Stop Date: 10/24/20 Status: Ordered MiraLax Powder = 17 Gm, By Mouth, 2 times a day, 0 Refills, Maintenance, 05/26/10 15:29:33 EST Start Date: 05/26/10 Status: Ordered Mirtazapine = 45 mg, By Mouth, Daily at bedtime, # 60 each, 0 Refills, Maintenance, 10/24/12 13:33:44 Start Date: 10/24/12 Stop Date: 04/14/13 Status: Ordered Multivitamin By Mouth, Daily, 0 [...] Capsule Start Date: 12/14/19 Status: Ordered Vitamin C 1000 mg oral tablet 1 tablet = 1,000 mg, By Mouth, 2 times a day, # 60 tablet, 0 Refills, Maintenance, 10/30/19 13:41:00 EDT, Tablet, [email or web address] #[id number], 162.56, cm, 08/17/19 16:32:00 EST, Height, 94.4, kg, 06/05/19 9:38:00 EST, Dry Weight Start Date: 10/30/19 Status: Ordered Vitamin D3 By Mouth, Daily, 0 Refills, Maintenance, 08/15/19 15:33:00 EST Start Date: 08/15/19 Status: Ordered Zoloft 100 mg oral tablet 2 tablet = 200 mg, By Mouth, Daily, PLEASE FOLLOW UP FOR ADDITIONAL REFILLS., # 60 tablet, 0 Refills, Maintenance, 11/30/18 16:40:16 EDT, Tablet Start Date: 11/30/18 Status: Ordered Problem List Condition Effective Dates Status Health Status Inform ant Anxiety(Confirmed) Active Vaginal atrophy(Confirmed) Active Pseudomonas infection(Confirmed) Active Chronic UTI (urinary tract infection)(Confirmed) Active Constipation(Confirmed) Active Depression(Confirmed) Active GERD - Gastro-esophageal ref lux disease(Confirmed) Active Chronic left hip pain(Confirmed) Active History of cancer of the bone(Confirmed) Active History of radiation therapy(Confirmed) Active Hypercholesterolemia(Confirmed) Active Hypertension(Confirmed) Active Hypertension(Confirmed) Active Hypothyroidism(Confirmed) Active Idiopathic peripheral neuropathy(Confirmed) Active Incomplete bladder emptying(Confirmed) Active Lymphoma, unspecified(Confirmed) 09/02/10 Active Migraine(Confirmed) Active CARMEN on CPAP(Confirmed) Active Restless leg syndrome(Confirmed) Active 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
--- OUTSIDE RECORDS SUMMARY | 2022-11-22 21:25 | XMS_ITS | Continuity of Care Document ---
Author Name Unknown Organization [facility] Address [address], [address], [address] [place] [address]- Care Team Providers Care Signal Helper Name Role Phone Betito OSORIO, Debi Lizama Primary Care Physician [phone] [place] [facility] [place] 01/25/21 [facility] [address], [address], [address] [place] [id number] Attending Physician: Giovanna Richards MD Admitting Physician: Giovanna Richards MD Allergies, Adverse Reactions, Alerts Substance Reaction Severity Status ciprofloxacin Itchy Active phenobarbital Active sulfa drugs Active Active Vasotec ULCERS IN MOUTH Active Shrimp MOUTH SWELLED Active Other Food Allergy 1 SWELLING OF MOUTH Crab Active Dust Dust allergy tongue swells Active Lobster BLOODY STOOLS Active 1CRAB Immunizations [...] Vacc (oldterm) 5 08/12/09 Given 1Admin Note: [facility] 2Location History: intermediate 3Result Comment: [06/04/2016] donna 4Result Comment: [04/08/2015] L&C 5Admin Note: DR. PASTOR, [facility] Medications amLODIPine 10 mg oral tablet 1 tablet, By Mouth, Daily, # 90 tablet, 3 Refills, Maintenance, 04/12/20 10:49:00 EDT, [facility] #[id number], 162.56, cm, 03/01/20 14:13:00 EDT, Height, 94.4, [...] 1 Refills, Maintenance, 09/07/20 9:48:00 EDT, Tablet, [facility] #[id number], 168, cm, 05/23/20 10:09:00 EST, Height, 94.4, [...] 2 Refills, Maintenance, 08/18/19 13:10:00 EST, Tablet, [facility] #[id number], 162.56, cm, 08/17/19 16:3... Start Date: 08/18/19 Status: Ordered fluticasone 50 mcg/inh nasal spray 1 sprays, Nares, Both, 2 times a day, # 1 each, 5 Refills, Maintenance, [place] Start Date: 03/15/13 Stop Date: 09/11/13 Status: Ordered furosemide 20 mg oral tablet 40 mg, 2, tablet, By Mouth, Daily, # 180 tablet, Refills 3, Tot. Refills 3, Maintenance, 03/11/20 14:33:00 EDT, Route to Pharmacy Electronically, [facility] #[id number], 162.56, cm, 03/01/20 14:13:00 EDT, Height, 94.4, kg, 06/05/19 9:38:00 EST, D... Start Date: 03/11/20 Stop Date: 03/06/21 Status: Ordered ipratropium nasal 21 mcg/inh spray See Instructions, PRN Nasal Congestion, 1 spray each nostril BID, # 1 each, 4 Refills, Maintenance,07/17/20 12:08:00 EST, [facility] #[id number], Partial fill upon patient request if the [...] 0, Maintenance, use overnight and naps from [facility], 08/15/20 12:05:00 EST, Compound Start Date: 08/15/20 [...] tablet, Refills 1, Tot. Refills 0, Maintenance, 10/07/20 8:20:00 EDT, Route to Pharmacy Electronically, [facility] #[id number], 168, cm, 05/23/20 10:09:00 EST, Height, 94.4, kg, 06/05/19 9:38:00 EST, Dry... Start Date: 10/07/20 Status: Ordered levothyroxine 0.075 mg oral tablet 0 Refills, Maintenance, 08/15/19 15:34:00 EST Start Date: 08/15/19 Status: Ordered Lorazepam = 0.5 mg, By Mouth, prn, 0 Refills, Maintenance, 08/15/19 15:31:00 EST Start Date: 08/15/19 Status: Ordered losartan 100 mg oral tablet 1 tablet = 100 mg, By Mouth, Daily, To replace valsartan, # 90 tablet, 3 Refills, Maintenance, 04/12/20 10:50:00 EDT, Tablet, [facility] #[id number], 162.56, cm, 03/01/20 14:13:00 EDT, Height, 94.4, kg, 06/05/19 9:38:00 EST, Dry Weight Start Date: 04/12/20 Status: Ordered Metamucil 3.4 gm/5.2 gm oral powder for reconstitution = 3.4 Gm, By Mouth, 2 times a day, 0 Refills, Maintenance, 05/23/20 10:15:00 EST, Partial fill uponpatient request if the prescription is for a schedule II opioid drug. Start Date: 05/23/20 Status: Ordered MiraLax Powder = 17 Gm, [...] 0 Refills, Maintenance, 10/30/19 13:41:00 EDT, Tablet, [facility] #[id number], 162.56, cm, 08/17/19 16:32:00 EST, Height, 94.4, kg, 06/05/19 9:38:00 EST, Dry Weight Start Date: 10/30/19 Status: Ordered Vitamin D3 By Mouth, Daily, 0 Refills, Maintenance, 08/15/19 15:33:00 EST Start Date: 08/15/19 Status: Ordered Problem List Condition Effective Dates [...]
--- OUTSIDE RECORDS SUMMARY | 2022-11-22 21:25 | XMS_ITS | Continuity of Care Document ---
Author Name Unknown Organization [facility] [employer] [facility] Address [address], [address] [place] [address]- Care Team Providers Care Vp Digital Marketing Social Media And Crm Name Role Phone Betito OSORIO, Debi Lizama Primary Care Physician [phone] Encounter [facility] Date(s): 05/20/20 - 06/19/20 [facility] [employer] [address], [address]th [place] [address]- Allergies, Adverse Reactions, Alerts Substance Reaction Severity [...] Vacc (oldterm) 5 08/12/09 Given 1Admin Note: [facility] 2Location History: senior living 3Result Comment: [06/04/2016] donna 4Result Comment: [04/08/2015] L&C 5Admin Note: DR. PASTOR, [facility] amLODIPine 10 mg oral tablet 1 tablet, By Mouth, Daily, # 90 tablet, 3 Refills, Maintenance, 04/12/20 10:49:00 EDT, [facility] #[id number], 162.56, cm, 03/01/20 14:13:00 EDT, Height, 94.4, [...] 3 Refills, Maintenance, 09/20/19 11:46:00 EDT, Tablet, [facility] #[id number], 162.56, cm, 08/17/19 16:32:00 EST, Height, 94.4, kg, 06/05/19 9:38:00 EST, Dry Weight Start Date: 09/20/19 Status: Ordered Calcium Barbonate 650mg Calcium Barbonate 650mg, By Mouth, 2 times a day, Refills 0, Maintenance, 06/05/19 9:57:00 EST, Compound Start Date: 06/05/19 Status: Ordered calcium barbonate 650mg calcium barbonate 650mg, By Mouth, 2 times a day, Refills 0, Maintenance, 04/23/16 10:10:10 EST, Compound Start Date: 04/23/16 Status: Ordered Claritin Tablet 10 mg, By Mouth, Daily, Maintenance, 10/24/12 13:31:19 Start Date: 10/24/12 Status: Ordered Compression Stockings See Instructions, # 1 pair, Refills 1, Tot. Refills 1, Maintenance, surgical, knee length 20-30 mm Hg dx: lymphedema, 04/19/17 10:29:54, Compound Start Date: 04/19/17 Status: Ordered cranberry pills cranberry pills, Refills 0, Maintenance, 12/26/18 9:59:44 EDT, Compound Start Date: 12/26/18 Status: Ordered Estrace Vaginal Cream 0.1 mg/g See Instructions, 1 Gram Vaginally at bedtime two times/week, # 42 Gm, 3 Refills, Maintenance, 05/22/20 16:20:00 EST, [facility] #[id number], 162.56, cm, 05/13/20 15:07:00 EST, Height, 94.4, kg,06/05/19 9:38:00 EST, Dry Weight Start Date: 05/22/20 Status: Ordered ferrous sulfate 325 mg oral tablet 1 tablet = 325 mg, By Mouth, 3 times a day, May take once daily and increase to 3 times a day if tolerated; take with vitamin C, # 90 tablet, 2 Refills, Maintenance, 08/18/19 13:10:00 EST, Tablet, [facility] #72725, 162.56, cm, 08/17/19 16:3... Start Date: 08/18/19 Status: Ordered fluticasone 50 mcg/inh nasal spray 1 sprays, Nares, Both, 2 times a day, # 1 each, 5 Refills, Maintenance, [place] Start Date: 03/15/13 Stop Date: 09/11/13 Status: Ordered furosemide 20 mg oral tablet 40 mg, 2, tablet, By Mouth, Daily, # 180 tablet, Refills 3, Tot. Refills 3, Maintenance, 03/11/20 14:33:00 EDT, Route to Pharmacy Electronically, [facility] #[id number], 162.56, cm, 03/01/20 14:13:00 EDT, Height, 94.4, kg, 06/05/19 9:38:00 EST, D... Start Date: 03/11/20 Stop Date: 03/06/21 Status: Ordered ibuprofen 800 mg oral tablet 800 mg, 1, tablet, By Mouth, 3 times a day, Refills 0, Maintenance, 06/20/18 9:23:45 EST Start Date: 06/20/18 Status: Ordered Imvexxy Maintenance Pack 10 mcg vaginal insert 1 insert, Vaginally, Every Wednesday and , # 8 supp, 5 Refills, Maintenance, 04/29/20 12:11:00EST, [facility], Partial fill upon patient request, 162.56, cm, 04/15/20 14:37:00 EST, Height, 94.4, kg, 06/05/19 9:38:00 EST, Dry... Start Date: 04/29/20 Status: Ordered L Marko Knee CHECK knee [...] 05/13/20 10:26:00 EST, Route to Pharmacy Electronically, [facility] #[id number], 162.56, cm, 04/15/20 14:37:00 EST, Height, 94.4, [...] 3 Refills, Maintenance, 04/12/20 10:50:00 EDT, Tablet, [facility] #[id number], 162.56, cm, 03/01/20 14:13:00 EDT, Height, 94.4, [...] 10/24/20 16:37:00 EDT, 04/27/20 16:37:00 EST, Tablet, [facility] #[id number], 162.56, cm, 04/15/20 14:37:00 EST, Height, 94.4, [...] 08/01/14 16:38:28 Start Date: 08/01/14 Status: Ordered Multivitamin Daily, pt takes Centrum Silver, 0 Refills, Maintenance, 12/26/18 10:01:05 EDT Start Date: 12/26/18 Status: Ordered Nasacort Allergy 24HR 2 sprays, [...] 0 Refills, Maintenance, 10/30/19 13:41:00 EDT, Tablet, [facility] #63543, 162.56, cm, 08/17/19 16:32:00 EST, Height, 94.4, [...]
--- OUTSIDE RECORDS SUMMARY | 2022-11-22 21:25 | XMS_ITS | Continuity of Care Document ---
Author Name Unknown Organization [facility] [employer] [facility] Address [address], [address] [place] [address]- Care Team Providers Care Floor Director Name Role Phone Betito OSORIO, Debi Lizama Primary Care Physician [place] [facility] [place](s): 07/29/22 - 08/28/22 [facility] [employer] [facility] [address], [address] [place], [place] [address] Allergies, Adverse Reactions, Alerts Substance Reaction Severity [...] Vacc (oldterm) 5 08/12/09 Given 1Admin Note: [facility] 2Location History: prison 3Result Comment: [06/04/2016] donna 4Result Comment: [04/08/2015] L&C 5Admin Note: DR. PASTOR, [place] Medications amLODIPine 10 mg oral tablet See Instructions, TAKE 1 TABLET BY MOUTH DAILY, # 90 each, 3 Refills, 09/24/21 10:21:00 EDT, [facility] #[id number], 168, cm, 09/24/21 10:10:00 EDT, Height Start [...] Stop 09/19/22 10:25:00 EDT, 09/24/21 10:25:00 EDT, [facility] #[id number], 168, cm, 09/24/21 10:10:00 EDT, Height Start Date: 09/24/21 Stop Date: 09/19/22 Status: Ordered busPIRone 5 mg oral tablet 5 mg, 1, tablet, By Mouth, 3 times a day, # 90 tablet, Refills 0, Maintenance, 09/24/21 10:12:00 EDT, Partial fill upon patient request if the prescription is for a schedule II opioid drug. Start Date: 09/24/21 Status: Ordered clobetasol 0.05% topical ointment 1 application, Topically, Daily, # 60 Gm, 1 Refills, Acute 08/07/23 16:53:00 EST, 08/06/22 16:53:00EST, Ointment, [facility] #[id number], Partial fill upon patient request if the prescription is for a schedule II opioid drug., 1 application Topi... Start Date: 08/06/22 Stop Date: 08/07/23 Status: Ordered Compression Stockings See Instructions, # [...] day, # 1 each, 5 Refills, Maintenance, [place] Start Date: 03/15/13 Stop Date: 09/11/13 Status: Ordered furosemide 40 mg oral tablet 1, tablet, By Mouth, Daily, # 90 tablet, Refills 3, Tot. Refills 3, Maintenance, 06/10/22 10:40:00 EST, Route to Pharmacy Electronically, [facility] #[id number], 168, cm, 06/10/22 10:25:00 EST, Height Start Date: 06/10/22 Status: Ordered ipratropium nasal 21 mcg/inh spray See Instructions, PRN Nasal Congestion, 1 spray each nostril BID, # 1 each, 4 Refills, Maintenance,01/01/22 16:02:00 EDT, [facility] #[id number], Partial fill upon patient request if the [...] use overnight and naps from [facility], 08/15/20 12:05:00 EST, Compound Start Date: [...] tablet, Refills 3, Route to Pharmacy Electronically, [facility] #44903, 168, cm, 03/27/21 14:00:00 EDT, Height, 94.4, [...] 3 Refills, Maintenance, 04/12/20 10:50:00 EDT, Tablet, [facility] #[id number], 162.56, cm, 03/01/20 14:13:00 EDT, Height, 94.4, [...] each, 3 Refills, Maintenance, 02/04/22 10:46:00 EDT, [facility] #[id number], 168, cm, 02/04/22 10:23:00 EDT, Height Start [...] 0 Refills, Maintenance, 10/30/19 13:41:00 EDT, Tablet, [facility] #[id number], 162.56, cm, 08/17/19 16:32:00 EST, Height, 94.4, kg, 06/05/19 9:38:00 EST, Dry Weight Start Date: 10/30/19 Status: Ordered Vitamin D3 By Mouth, Daily, 0 Refills, Maintenance, 08/15/19 15:33:00 EST Start Date: 08/15/19 Status: Ordered Problem List Condition Confirmation Course Effective Dates Status Health Status Informant Anxiety Confirmed Active Vaginal atrophy Confirmed Active Pseudomonas infection Confirmed Active Chronic UTI (urinary tract infection) Confirmed Active Depression Confirmed Active GERD - Gastro-esophageal reflux disease Confirmed Active Chronic left hip pain Confirmed Active History of cancer of the bone Confirmed Active History of radiation therapy Confirmed Active Hypercholesterolemia Confirmed Active Hypertension Confirmed Active Hypertension Confirmed Active Hypothyroidism Confirmed Active Idiopathic peripheral neuropathy Confirmed Active Incomplete bladder emptying Confirmed Active Lymphoma, unspecified Confirmed 09/02/10 Active Migraine Confirmed Active Major depressive disorder, recurrent, mild Confirmed Active CARMEN on CPAP Confirmed Active Resting tremor Confirmed Active Restless leg syndrome Confirmed Active Unspecified Idiopathic Peripheral Neuropathy Confirmed 09/02/10 Active Urinary incontinence Confirmed Active Social History Social History Type Response Smoking Status Former smoker entered on: 10/04/14 Sex Patient Care team information Care Team Personnel Name: Ana YAP, Marianne Position: [facility] RN Member Role: Primary Care Nurse Name: Debi Cisse MD Position: [facility] Primary Care Physician Member Role: PCP Address: Address: [address] [place] [address] Adult [place], [place] [address] Name: Viola Gonzalez Position: [facility] Outreach Member Role: Lifetime Consulting Physician Care Team Related Persons Name: ITZEL GARCIA Name: AILYN ANDERSON Name: RAF NAVARRETE
--- OUTSIDE RECORDS SUMMARY | 2022-11-22 21:25 | XMS_ITS | Continuity of Care Document ---
Author Name Unknown Organization [facility] Address [address] [place] [address]- Care Team Providers Care Scheduling Coordinator Name Role Phone Obed Cisse MD Primary Care Physician Encounter 07/17/20 - 07/24/20 [facility] [address], [address] [place] [address]- Attending Physician: Obed Cisse MD Admitting Physician: Obed Cisse MD Referring Physician: Obde Cisse MD Allergies, Adverse Reactions, Alerts Substance Reaction Severity Status ciprofloxacin Itchy Active phenobarbital Active Lobster BLOODY STOOLS Active Other Food Allergy 1 SWELLING OF MOUTH Crab Active sulfa drugs Active Vasotec ULCERS IN MOUTH Active Active Dust Dust allergy tongue swells Active Shrimp MOUTH SWELLED Active 1CRAB Immunizations Given and Recorded Vaccine [...] Vacc (oldterm) 5 08/12/09 Given 1Admin Note: [facility] [place] 2Location History: senior living 3Result Comment: [06/04/2016] donna 4Result Comment: [04/08/2015] L&C 5Admin Note: DR. PASTOR, [place] Medications amLODIPine 10 mg oral tablet 1 tablet, By Mouth, Daily, # 90 tablet, 3 Refills, Maintenance, 04/12/20 10:49:00 EDT, [facility] #[id number], 162.56, cm, 03/01/20 14:13:00 EDT, Height, 94.4, [...] 3 Refills, Maintenance, 09/20/19 11:46:00 EDT, Tablet, [facility] #51510, 162.56, cm, 08/17/19 16:32:00 EST, Height, 94.4, kg, 06/05/19 9:38:00 EST, Dry Weight Start Date: 09/20/19 Status: Ordered Claritin Tablet 10 mg, By [...] 2 Refills, Maintenance, 08/18/19 13:10:00 EST, Tablet, [facility] #10951, 162.56, cm, 08/17/19 16:3... Start Date: 08/18/19 Status: Ordered fluticasone 50 mcg/inh nasal spray 1 sprays, Nares, Both, 2 times a day, # 1 each, 5 Refills, Maintenance, [place] Start Date: 03/15/13 Stop Date: 09/11/13 Status: Ordered furosemide 20 mg oral tablet 40 mg, 2, tablet, By Mouth, Daily, # 180 tablet, Refills 3, Tot. Refills 3, Maintenance, 03/11/20 14:33:00 EDT, Route to Pharmacy Electronically, [facility] #[id number], 162.56, cm, 03/01/20 14:13:00 EDT, Height, 94.4, [...] 1 each, 4 Refills, Maintenance,07/17/20 12:08:00 EST, [facility] #[id number], Partial fill upon patient request if the prescription is for a schedule II opioid drug., 1 spray ea... Start Date: 07/17/20 Status: Ordered iVAPS to target VA 4.8, EPAP 9, PS min 4, PS max 15, rate 18 with heated humidification iVAPS to target VA 4.8, EPAP 9, PS min 4, PS max 15, rate 18 with heated humidification, See Instructions, # 1 each, Refills 0, Tot. Refills 0, Maintenance, use overnight and naps from [facility], 07/17/20 12:23:00 EST, Compound Start Date: 07/17/20 Status: Ordered L Amrko Knee CHECK knee orthosis, wear daily L [...] 05/13/20 10:26:00 EST, Route to Pharmacy Electronically, [facility] #[id number], 162.56, cm, 04/15/20 14:37:00 EST, Height, 94.4, [...] 3 Refills, Maintenance, 04/12/20 10:50:00 EDT, Tablet, [facility] #[id number], 162.56, cm, 03/01/20 14:13:00 EDT, Height, 94.4, [...] 10/24/20 16:37:00 EDT, 04/27/20 16:37:00 EST, Tablet, [facility] #59127, 162.56, cm, 04/15/20 14:37:00 EST, Height, 94.4, [...] 0 Refills, Maintenance, 10/30/19 13:41:00 EDT, Tablet, [facility] #[id number], 162.56, cm, 08/17/19 16:32:00 EST, Height, 94.4, [...] heral Neuropathy(Confirmed) 09/02/10 Active Urinary incontinence(Confirmed) Active Results Radiology Reports * Exam Date Time Procedure Performing Provider Status 07/17/20 10:18 AM Dexa Bone Density (Axial) Diana Gallegos nnadia; Zully (Verified) Notes: (Dexa Bone Density (Axial)) Reason For Exam: Absence of Menstruation/ Amenorrhea RESULT: DEXA BONE DENSITY (AXIAL) Bone Density Report Name: RAF BRONSON Age: 74 Sex: Female Ethnicity: White Date of : 1945 Indication: POSTMENOPAUSAL. Referring Provider: OBED CISSE MD Study: Bone densitometry was performed. Exam Date: July 17, 2020 Accession number: [id number] Bone Density: Region BMD T-score Z-score Classification AP Spine (L1, L2, L3) 1.114 0.9 3.3 Normal Femoral Neck (Right) 0.738 -1.0 1.2 Normal Total Hip (Right) 0.972 0.2 2.1 Normal World Health Organization criteria for BMD impression classify patients as: Normal (T-score at or above -1.0), Osteopenia (T-score between -1.0 and -2.5), or Osteoporosis (T-score at or below -2.5). 10-year Fracture Risk: FRAX not reported because: All T-scores at or above -1.0 Previous Exams: Region Exam Age BMD T-score BMD Change BMD Change Date g/cm2 vs Baseline vs Previous AP Spine(L1, L2, L3) 07/17/2020 74 1.114 0.9 -1.9% -1.9% 12/21/2013 68 1.136 1.1 Total Hip(Right) 07/17/2020 74 0.972 0.2 2.0% 2.0% 12/21/2013 68 0.952 0.1 Femoral Neck(Right) 07/17/2020 74 0.738 -1.0 2.7% 2.7% 12/21/2013 68 0.718 -1.2 *Denotes significance at 95% confidence level, LSC for AP Spine = 0.022 g/cm2, LSC for Total Hip = 0.027 g/cm2 Clinical Information Provided by Patient: Has had a low trauma fracture Parent has had a hip fracture Has used the following medications: Vitamin D, Calcium Has the following medical conditions: Cancer, Hysterectomy Patient maximum height was 68 Menopause Age: 26 Onset of menses at age 10 Number of children 1 Impression: The patient has normal bone density as determined by WHO criteria. Reported by: Damián Best M.D. on 07/17/2020 10:52:00 AM. Dictated By: Damián Best MD Dictated Date/Time: 07/17/20 10:53 a Reviewed By: Damián Best MD Signed By: Damián Best MD Signed Date/Time: 07/17/20 10:53 am Transcribed By: HUA Transcribed Date/Time: 07/17/20 10:53 am Social History Social History Type Response Smoking Status Former smoker entered on: 10/04/14 Sex
--- OUTSIDE RECORDS SUMMARY | 2022-11-22 21:25 | XMS_ITS | Continuity of Care Document ---
Author Name Unknown Organization [facility] Address [address] [place] [address]- Care Team Providers Care Research Dairy Farm Supervisor Name Role Phone Debi Cisse MD Primary Care Physician Encounter [facility] NBR [id number] Date(s): 10/16/20 - 10/23/20 [facility] [address] [place] [address]- Attending Physician: Debi Cisse MD Allergies, Adverse Reactions, Alerts Substance Reaction Severity Status ciprofloxacin Itchy Active phenobarbital Active Other Food Allergy 1 SWELLING OF MOUTH Crab Active sulfa drugs Active Vasotec ULCERS IN MOUTH Active Active Dust Dust allergy tongue swells Active Lobster BLOODY STOOLS Active Shrimp MOUTH SWELLED Active 1CRAB Immunizations [...] Vacc (oldterm) 5 08/12/09 Given 1Admin Note: [facility] 2Location History: residential 3Result Comment: [06/04/2016] donna 4Result Comment: [04/08/2015] L&C 5Admin Note: DR. PASTOR, [place] Medications amLODIPine 10 mg oral tablet 1 tablet, By Mouth, Daily, # 90 tablet, 3 Refills, Maintenance, 04/12/20 10:49:00 EDT, [facility] #[id number], 162.56, cm, 03/01/20 14:13:00 EDT, Height, 94.4, [...] 1 Refills, Maintenance, 09/07/20 9:48:00 EDT, Tablet, [facility] #[id number], 168, cm, 05/23/20 10:09:00 EST, Height, 94.4, [...] 2 Refills, Maintenance, 08/18/19 13:10:00 EST, Tablet, [facility] #05046, 162.56, cm, 08/17/19 16:3... Start Date: 08/18/19 Status: Ordered fluticasone 50 mcg/inh nasal spray 1 sprays, Nares, Both, 2 times a day, # 1 each, 5 Refills, Maintenance, [place] Start Date: 03/15/13 Stop Date: 09/11/13 Status: Ordered furosemide 20 mg oral tablet 40 mg, 2, tablet, By Mouth, Daily, # 180 tablet, Refills 3, Tot. Refills 3, Maintenance, 03/11/20 14:33:00 EDT, Route to Pharmacy Electronically, [facility] #[id number], 162.56, cm, 03/01/20 14:13:00 EDT, Height, 94.4, kg, 06/05/19 9:38:00 EST, D... Start Date: 03/11/20 Stop Date: 03/06/21 Status: Ordered ipratropium nasal 21 mcg/inh spray See Instructions, PRN Nasal Congestion, 1 spray each nostril BID, # 1 each, 4 Refills, Maintenance,07/17/20 12:08:00 EST, [facility] #[id number], Partial fill upon patient request if the [...] 0, Maintenance, use overnight and naps from [facility], 08/15/20 12:05:00 EST, Compound Start Date: [...] 10/07/20 8:20:00 EDT, Route to Pharmacy Electronically, [facility] #[id number], 168, cm, 05/23/20 10:09:00 EST, Height, 94.4, [...] 3 Refills, Maintenance, 04/12/20 10:50:00 EDT, Tablet, [facility] #[id number], 162.56, cm, 03/01/20 14:13:00 EDT, Height, 94.4, [...] 10/24/20 16:37:00 EDT, 04/27/20 16:37:00 EST, Tablet, [facility] #[id number], 162.56, cm, 04/15/20 14:37:00 EST, Height, 94.4, [...] 0 Refills, Maintenance, 10/30/19 13:41:00 EDT, Tablet, [facility] #[id number], 162.56, cm, 08/17/19 16:32:00 EST, Height, 94.4, [...] heral Neuropathy(Confirmed) 09/02/10 Active Urinary incontinence(Confirmed) Active Vital Signs Most recent to oldest [Reference Range]: 1 Height 168 cm (10/16/20 10:32 AM) Weight 83.5 kg (10/16/20 10:32 AM) Oxygen Saturation [94-100 %] 98 % (10/16/20 10:32 AM) Pulse Rate [55-90 bpm] 61 bpm (10/16/20 10:32 AM) Body Mass Index [18.5-24.99] 29.58 *H* (10/16/20 10:32 AM) Blood Pressure [90-138/55-84 mm Hg] 134/ 64mm Hg (10/16/20 10:32 AM) Blood pressure sites Arm, left (10/16/20 10:32 AM) Weight Obtained Via Standing scale (10/16/20 10:32 AM) Social History Social History Type Response Smoking Status Former smoker entered on: 10/04/14 Sex
--- OUTSIDE RECORDS SUMMARY | 2022-11-22 21:25 | XMS_ITS | Continuity of Care Document ---
Author Name Unknown Organization [facility] Address [address] [place] [address]- Care Team Providers Care Marketing Program Coordinator Name Role Phone Betito OSORIO, Debi M Primary Care Physician [phone] Encounter [facility] [id number] Date(s): 04/08/22 - 04/15/22 [facility] [address] [address]- [place] Encounter Diagnosis Pain and swelling of left lower leg(Discharge Diagnosis) - 04/08/22 UTI (urinary tract infection)(Discharge Diagnosis) - 04/08/22 Hypothyroidism(Discharge Diagnosis) - 04/08/22 Swelling of left knee joint(Discharge Diagnosis) - 04/08/22 Attending Physician: Ant Ba MD Referring Physician: Dominique NOWAK, Vicky Lizama Allergies, Adverse Reactions, Alerts Substance Reaction Severity [...] Vacc (oldterm) 5 08/12/09 Given 1Admin Note: [facility] 2Location History: detention 3Result Comment: [06/04/2016] donna 4Result Comment: [04/08/2015] L&C 5Admin Note: DR. PASTOR, [place] Medications amLODIPine 10 mg oral tablet See Instructions, TAKE 1 TABLET BY MOUTH DAILY, # 90 each, 3 Refills, 09/24/21 10:21:00 EDT, [facility] #[id number], 168, cm, 09/24/21 10:10:00 EDT, Height Start [...] Stop 09/19/22 10:25:00 EDT, 09/24/21 10:25:00 EDT, [facility] #[id number], 168, cm, 09/24/21 10:10:00 EDT, Height Start [...] day, # 1 each, 5 Refills, Maintenance, [place] Start Date: 03/15/13 Stop Date: 09/11/13 Status: [...] 1 each, 4 Refills, Maintenance,01/01/22 16:02:00 EDT, [facility] #[id number], Partial fill upon patient request if the [...] 0, Maintenance, use overnight and naps from [facility], 08/15/20 12:05:00 EST, Compound Start Date: 08/15/20 [...] tablet, Refills 3, Route to Pharmacy Electronically, [facility] #[id number], 168, cm, 03/27/21 14:00:00 EDT, Height, 94.4, [...] 3 Refills, Maintenance, 04/12/20 10:50:00 EDT, Tablet, [facility] #74559, 162.56, cm, 03/01/20 14:13:00 EDT, Height, 94.4, [...] each, 3 Refills, Maintenance, 02/04/22 10:46:00 EDT, [facility] #[id number], 168, cm, 02/04/22 10:23:00 EDT, Height Start [...] 0 Refills, Maintenance, 10/30/19 13:41:00 EDT, Tablet, [facility] #31350, 162.56, cm, 08/17/19 16:32:00 EST, Height, 94.4, [...] Confirmed 09/02/10 Active Urinary incontinence Confirmed Active Diagnosis Diagnosis Type Effective Dates Health Status Clinical Service Informant Pain and swelling of left lower leg Discharge Diagnosis 04/08/22 UTI (urinary tract infection) Discharge Diagnosis 04/08/22 Hypothyroidism Discharge Diagnosis 04/08/22 Swelling of left knee joint Discharge Diagnosis 04/08/22 Vital Signs Most recent to oldest [Reference Range]: 1 Height 168 cm (04/08/22 2:42 PM) Oxygen Saturation [94-100 %] 97 % (04/08/22 2:42 PM) Pulse Rate [55-90 bpm] 59 bpm (04/08/22 2:42 PM) Blood Pressure [90-138/55-84 mm Hg] 128/ 56mm Hg (04/08/22 2:42 PM) Temperature [96.8-100.4 DegF] 98.2 DegF (04/08/22 2:42 PM) Mode of Delivery (Oxygen) Room air (04/08/22 2:42 PM) Blood pressure sites Arm, left (04/08/22 2:42 PM) Temperature Route Temporal (04/08/22 2:42 PM) Social History Social History Type Response Smoking Status Former smoker entered on: 10/04/14 Sex Patient Care team information Personnel Name: Debi Cisse MD Address: Address: [address] [place] [address]
--- OUTSIDE RECORDS SUMMARY | 2022-11-22 21:25 | XMS_ITS | Continuity of Care Document ---
Author Name Unknown Organization [facility] Address [address] [place] [address]- Care Team Providers Care Insurance Counselor Name Role Phone Betito OSORIO, Debi Lizama Primary Care Physician [phone] Encounter [facility] [place] Date(s): 05/31/20 - 06/30/20 [facility] [address] [place] [address] Attending Physician: Josy Morgan Admitting Physician: Josy Morgan Referring Physician: AdmtrJosy Allergies, Adverse Reactions, Alerts Substance Reaction Severity Status ciprofloxacin Itchy Active phenobarbital Active sulfa drugs Active Active Vasotec ULCERS IN MOUTH Active Dust Dust allergy tongue swells Active Lobster BLOODY STOOLS Active Other Food Allergy 1 SWELLING OF MOUTH Crab Active Shrimp MOUTH SWELLED Active 1CRAB Immunizations [...] Vacc (oldterm) 5 08/12/09 Given 1Admin Note: [facility] 2Location History: prison 3Result Comment: [06/04/2016] donna 4Result Comment: [04/08/2015] L&C 5Admin Note: DR. PASTOR, [facility] amLODIPine 10 mg oral tablet 1 tablet, By Mouth, Daily, # 90 tablet, 3 Refills, Maintenance, 04/12/20 10:49:00 EDT, [facility] #[id number], 162.56, cm, 03/01/20 14:13:00 EDT, Height, 94.4, [...] 3 Refills, Maintenance, 09/20/19 11:46:00 EDT, Tablet, [facility] #[id number], 162.56, cm, 08/17/19 16:32:00 EST, Height, 94.4, [...] Gm, 3 Refills, Maintenance, 05/22/20 16:20:00 EST, [facility] #[id number], 162.56, cm, 05/13/20 15:07:00 EST, Height, 94.4, kg,06/05/19 9:38:00 EST, Dry Weight Start Date: 05/22/20 Status: Ordered ferrous sulfate 325 mg oral tablet 1 tablet = 325 mg, By Mouth, 3 times a day, May take once daily and increase to 3 times a day if tolerated; take with vitamin C, # 90 tablet, 2 Refills, Maintenance, 08/18/19 13:10:00 EST, Tablet, [facility] #[id number], 162.56, cm, 08/17/19 16:3... Start Date: 08/18/19 Status: Ordered fluticasone 50 mcg/inh nasal spray 1 sprays, Nares, Both, 2 times a day, # 1 each, 5 Refills, Maintenance, [place] Start Date: 03/15/13 Stop Date: 09/11/13 Status: Ordered furosemide 20 mg oral tablet 40 mg, 2, tablet, By Mouth, Daily, # 180 tablet, Refills 3, Tot. Refills 3, Maintenance, 03/11/20 14:33:00 EDT, Route to Pharmacy Electronically, [facility] #[id number], 162.56, cm, 03/01/20 14:13:00 EDT, Height, 94.4, [...] 8 supp, 5 Refills, Maintenance, 04/29/20 12:11:00EST, [facility], Partial fill upon patient request, [...] 05/13/20 10:26:00 EST, Route to Pharmacy Electronically, [facility] #[id number], 162.56, cm, 04/15/20 14:37:00 EST, Height, 94.4, [...] 3 Refills, Maintenance, 04/12/20 10:50:00 EDT, Tablet, [facility] #31993, 162.56, cm, 03/01/20 14:13:00 EDT, Height, 94.4, [...] 10/24/20 16:37:00 EDT, 04/27/20 16:37:00 EST, Tablet, [facility] #[id number], 162.56, cm, 04/15/20 14:37:00 EST, Height, 94.4, [...] 0 Refills, Maintenance, 10/30/19 13:41:00 EDT, Tablet, [facility] #[id number], 162.56, cm, 08/17/19 16:32:00 EST, Height, 94.4, [...]
--- OUTSIDE RECORDS SUMMARY | 2022-11-22 21:25 | XMS_ITS | Continuity of Care Document ---
Author Name Unknown Organization [facility] Address [address] [place] [address]- Care Team Providers Care Hris Administrator Name Role Phone Betito OSORIO, Debi Lizama Primary Care Physician Encounter [email or web address] NBR [id number] Date(s): 03/11/20 - 04/10/20 [facility] [address] [place] [address]- Allergies, Adverse Reactions, Alerts Substance Reaction Severity [...] Vacc (oldterm) 5 08/12/09 Given 1Location History: alf 2Result Comment: [06/04/2016] donna 3Result Comment: [04/08/2015] L&C 4Admin Note: [facility] 5Admin Note: DR. PASTOR, [facility] amLODIPine 10 mg oral tablet 1 tablet, By Mouth, Daily, # 90 tablet, 0 Refills, Maintenance, 01/28/20 8:43:00 EDT, [facility] #[id number], 162.56, cm, 10/30/19 13:47:00 EDT, Height, 94.4, [...] 3 Refills, Maintenance, 09/20/19 11:46:00 EDT, Tablet, [facility] #[id number], 162.56, cm, 08/17/19 16:32:00 EST, Height, 94.4, kg, 06/05/19 9:38:00 EST, Dry Weight Start Date: 09/20/19 Status: Ordered Calcium Barbonate 650mg Calcium Barbonate 650mg, Refills 0, Maintenance, 06/05/19 9:57:00 EST, Compound Start Date: 06/05/19 Status: Ordered calcium barbonate 650mg calcium barbonate 650mg, Refills 0, Maintenance, 04/23/16 10:10:10, Compound Start Date: 04/23/16 Status: Ordered cephalexin monohydrate 250 mg oral capsule 1 capsule, By Mouth, Daily at bedtime, # 30 capsule, 0 Refills, Acute, 04/09/20 14:24:00 EDT, [facility] #[id number], 162.56, cm, 03/01/20 14:13:00 EDT, Height, 94.4, kg, 06/05/19 9:38:00 EST, Dry Weight Start Date: 04/09/20 Status: Ordered Claritin Tablet 10 mg, By [...] 2 Refills, Maintenance, 08/18/19 13:10:00 EST, Tablet, [facility] #[id number], 162.56, cm, 08/17/19 16:3... Start Date: 08/18/19 Status: Ordered fluticasone 50 mcg/inh nasal spray 1 sprays, Nares, Both, 2 times a day, # 1 each, 5 Refills, Maintenance, [place] Start Date: 03/15/13 Stop Date: 09/11/13 Status: Ordered furosemide 20 mg oral tablet 40 mg, 2, tablet, By Mouth, Daily, # 180 tablet, Refills 3, Tot. Refills 3, Maintenance, 03/11/20 14:33:00 EDT, Route to Pharmacy Electronically, [facility] #[id number], 162.56, cm, 03/01/20 14:13:00 EDT, Height, 94.4, kg, 06/05/19 9:38:00 ESTDc Start Date: 03/11/20 Stop Date: 03/06/21 Status: Ordered grapeseed 600mg grapeseed 600mg, Refills [...] supp, 1 Refills, Maintenance, 02/01/20 9:41:00 EDT, [facility], 162.56, cm, 01/29/20 10:10:00 EDT, [...] 09/19/19 7:36:00 EDT, Route to Pharmacy Electronically, [facility] #[id number], 162.56, cm, 08/17/19 16:32:00 EST, Height, 94.4, [...] 04/27/20 16:37:00 EST, 10/30/19 16:37:00 EDT, Tablet, [facility] #[id number], 162.56, cm, 10/30/19 13:47:00 EDT, Height, 94.4, kg, 06/05/19 9:38:00 EST, Dry Weight Start Date: 10/30/19 Stop Date: 04/27/20 Status: Ordered methenamine hippurate 1 gm oral tablet 1 tablet = 1 Gm, By Mouth, 2 times a day, for 30 days, # 60 tablet, 5 Refills, Acute 10/24/20 16:37:00 EDT, 04/27/20 16:37:00 EST, Tablet, [facility] #05635, 162.56, cm, 03/01/20 14:13:00 EDT, Height, 94.4, [...] 0 Refills, Maintenance, 10/30/19 13:41:00 EDT, Tablet, [facility] #[id number], 162.56, cm, 08/17/19 16:32:00 EST, Height, 94.4, [...]
--- OUTSIDE RECORDS SUMMARY | 2022-11-22 21:25 | XMS_ITS | Continuity of Care Document ---
Author Name Unknown Organization [facility] Address [address] [place] [id number]- Care Team Providers Care Clothespin Drier Operator Name Role Phone Debi Cisse MD Primary Care Physician [id number] Date(s): 06/21/19 - 08/26/19 [facility] [address] [address]- [facility] Attending Physician: Pierce Morrow MD Admitting Physician: Pierce Morrow MD Referring Physician: Debi Cisse MD Allergies, Adverse Reactions, Alerts Substance Reaction Severity Status ciprofloxacin Itchy Active phenobarbital Active sulfa drugs Active Keflex diarrhea Active Active Vasotec ULCERS IN MOUTH Active [...] Vacc (oldterm) 5 08/12/09 Given 1Location History: jail 2Result Comment: [06/04/2016] donna 3Result Comment: [04/08/2015] L&C 4Admin Note: [facility] 5Admin Note: DR. PASTOR, [facility] amLODIPine 10 mg oral tablet 10 mg, 1, tablet, By Mouth, Daily, # 90 tablet, Refills 3, Tot. Refills 3, Maintenance, 04/13/19 15:01:39 EDT, Route to Pharmacy Electronically, [id number], [facility] #[id number] Start Date: 04/13/19 Status: Ordered atenolol 100 mg oral tablet 1 tablet = 100 mg, By Mouth, 2 times a day, 0 Refills, Maintenance, 10/05/16 9:40:42 Start Date: 10/05/16 Stop Date: 11/07/16 Status: Ordered atorvastatin 20 mg oral tablet 1 tablet = 20 mg, By Mouth, Daily, # 90 tablet, 3 Refills, Maintenance, Tablet, Route to Pharmacy Electronically, [id number], [facility] [id number] Start Date: 06/30/18 Status: Ordered baclofen 10 mg oral tablet 20 mg, 2, tablet, By Mouth, Daily, # 180 tablet, Refills 3, Tot. Refills 3, Maintenance, 12/29/18 10:23:44 EDT, Route to Pharmacy Electronically, [id number], [facility] [address] Start Date: 12/29/18 Stop Date: 12/24/19 Status: Ordered gris extra strength tabs gris extra strength tabs, Refills 0, Maintenance, 01/07/17 10:36:18, Compound Start Date: 01/07/17 Status: Ordered Calcium Barbonate 650mg Calcium Barbonate 650mg, Refills 0, Maintenance, 06/05/19 9:57:00 EST, Compound Start Date: 06/05/19 Status: Ordered calcium barbonate 650mg calcium barbonate 650mg, Refills 0, Maintenance, 04/23/16 10:10:10, Compound Start Date: 04/23/16 Status: Ordered Claritin [...] 2 Refills, Maintenance, 08/18/19 13:10:00 EST, Tablet, [facility] #[id number], 162.56, cm, 08/17/19 16:3... Start Date: 08/18/19 Status: Ordered fluticasone 50 mcg/inh nasal spray 1 sprays, Nares, Both, 2 times a day, # 1 each, 5 Refills, Maintenance, [place] Start Date: 03/15/13 Stop Date: 09/11/13 Status: Ordered furosemide 20 mg oral tablet 40 mg, 2, tablet, By Mouth, Daily, # 180 tablet, Refills 3, Tot. Refills 3, Maintenance, 03/24/19 8:27:15 EDT, Route to Pharmacy Electronically, [id number], [facility] #[id number] Start Date: 03/24/19 Stop Date: 03/18/20 Status: Ordered grapeseed 600mg grapeseed 600mg, Refills 0, Maintenance, 01/07/17 10:36:55, Compound Start Date: 01/07/17 Status: Ordered ibuprofen 800 mg oral tablet 800 mg, 1, tablet, By Mouth, 3 times a day, Refills 0, Maintenance, 06/20/18 9:23:45 EST Start Date: 06/20/18 Status: Ordered Imvexxy Starter Pack 10 mcg vaginal insert See Instructions, insert Vaginally Daily for 2 weeks, then twice weekly thereafter, # 18 supp, 1 Refills, Maintenance, 06/05/19 11:07:00 EST, [facility] #[id number], 162.56, cm, 06/05/19 9:38:00EST, Height, 94.4, kg, 06/05/19 9:38:00 EST, Dry We... Start Date: 06/05/19 Status: Ordered L Marko Knee CHECK knee [...] EDT, Compound Start Date: 04/14/19 Status: Ordered Lamotrigine 200 mg, By Mouth, Refills 0, Maintenance, 08/15/19 15:30:00 EST Start Date: 08/15/19 Status: Ordered lamotrigine 100 mg oral tablet 2 tablet, By Mouth, 2 times a day, # 360 tablet, Refills 1 Tot. Refills 1, [facility] #[id number] Start Date: 05/15/19 Status: Ordered levothyroxine 0.075 mg oral tablet [...] EDT, Tablet Start Date: 04/13/19 Status: Ordered Macrobid macrocrystals-monohydrate 100 mg oral capsule 1 capsule = 100 mg, By Mouth, Daily, # 14 capsule, 0 Refills, Maintenance, 04/17/19 9:25:49 EST Start Date: 04/17/19 Stop Date: 05/01/19 Status: Ordered methenamine hippurate 1 gm oral tablet 1 tablet = 1 Gm, By Mouth, 2 times a day, for 30 days, # 60 tablet, 5 Refills, Acute 02/14/20 15:53:00 EDT, 08/18/19 15:53:00 EST, Tablet, [facility] #[id number], 162.56, cm, 08/17/19 16:32:00 EST, Height, 94.4, kg, 06/05/19 9:38:00 EST, Dry Weight Start Date: 08/18/19 Stop Date: 02/14/20 Status: Ordered MiraLax Powder = 17 Gm, [...] EDT, Compound Start Date: 12/26/18 Status: Ordered Vitamin B Complex oral tablet, extended release 1 tablet, By Mouth, Daily, 0 Refills, Maintenance, 08/01/14 16:37:50 Start Date: 08/01/14 Status: Ordered Vitamin C 1000 mg oral tablet 1 tablet = 1,000 mg, By Mouth, Daily, 0 Refills, Maintenance, 08/01/14 16:38:01 Start Date: 08/01/14 Status: Ordered Vitamin D3 By Mouth, Daily, [...]
--- OUTSIDE RECORDS SUMMARY | 2022-11-22 21:25 | XMS_ITS | Continuity of Care Document ---
Author Name Unknown Organization [facility] Address [address] [place] [address]- Care Team Providers Care Want Ad Clerk Name Role Phone Betito OSORIO, Debi Lizama Primary Care Physician [place] [facility] [place] 08/06[place]22 - 09/05/22 [facility] [address] [place], [place] [address] Allergies, Adverse Reactions, Alerts Substance Reaction Severity [...] Vacc (oldterm) 5 08/12/09 Given 1Admin Note: [facility] 2Location History: jail 3Result Comment: [06/04/2016] donna 4Result Comment: [04/08/2015] L&C 5Admin Note: DR. PASTOR, [facility] Medications amLODIPine 10 mg oral tablet See Instructions, TAKE 1 TABLET BY MOUTH DAILY, # 90 each, 3 Refills, 09/24/21 10:21:00 EDT, [facility] #[id number], 168, cm, 09/24/21 10:10:00 EDT, Height Start [...] Stop 09/19/22 10:25:00 EDT, 09/24/21 10:25:00 EDT, [facility] #[id number], 168, cm, 09/24/21 10:10:00 EDT, Height Start [...] Acute 08/07/23 16:53:00 EST, 08/06/22 16:53:00EST, Ointment, [facility] #[id number], Partial fill upon patient request if the [...] day, # 1 each, 5 Refills, Maintenance, [employer] Start Date: 03/15/13 Stop Date: 09/11/13 Status: Ordered furosemide 40 mg oral tablet 1, tablet, By Mouth, Daily, # 90 tablet, Refills 3, Tot. Refills 3, Maintenance, 06/10/22 10:40:00 EST, Route to Pharmacy Electronically, [facility] #[id number], 168, cm, 06/10/22 10:25:00 EST, Height Start Date: 06/10/22 Status: Ordered ipratropium nasal 21 mcg/inh spray See Instructions, PRN Nasal Congestion, 1 spray each nostril BID, # 1 each, 4 Refills, Maintenance,01/01/22 16:02:00 EDT, [facility] #[id number], Partial fill upon patient request if the [...] tablet, Refills 3, Route to Pharmacy Electronically, [facility] #[id number], 168, cm, 03/27/21 14:00:00 EDT, Height, 94.4, [...] 3 Refills, Maintenance, 04/12/20 10:50:00 EDT, Tablet, [facility] #[id number], 162.56, cm, 03/01/20 14:13:00 EDT, Height, 94.4, [...] each, 3 Refills, Maintenance, 02/04/22 10:46:00 EDT, [facility] #[id number], 168, cm, 02/04/22 10:23:00 EDT, Height Start [...] 0 Refills, Maintenance, 10/30/19 13:41:00 EDT, Tablet, [facility] #[id number], 162.56, cm, 08/17/19 16:32:00 EST, Height, 94.4, [...] Team Personnel Name: Ana YAP, Marianne Position: [facility] RN Member Role: Primary Care Nurse Name: Debi Cisse MD Position: [facility] Primary Care Physician Member Role: PCP Address: Address: [address] [place] [address] [place], [place] [address] Name: Viola Gonzalez Position: [facility] Outreach Member Role: Lifetime Consulting Physician Care Team Related Persons Name: ITZEL GARCIA Name: AILYN ANDERSON Name: [employer]
--- OUTSIDE RECORDS SUMMARY | 2022-11-22 21:26 | XMS_ITS | Continuity of Care Document ---
Author Name Unknown Organization [facility] [place] [employer] [facility] Address [address], [address] [place] [address]- Care Team Providers Care Physiognomist Name Role Phone Betito OSORIO, Debi Lizama [id number]): [facility]19[facility] - 08/26/22 [facility] [place] [employer] [address], [address] [place], [place] [address] Attending Physician: Rina Saravia MD Kallie Allergies, Adverse Reactions, Alerts Substance Reaction Severity [...] Vacc (oldterm) 5 08/12/09 Given 1Admin Note: [facility] 2Location History: senior living 3Result Comment: [06/04/2016] donna 4Result Comment: [04/08/2015] L&C 5Admin Note: DR. PASTOR, [place] Medications amLODIPine 10 mg oral tablet See Instructions, TAKE 1 TABLET BY MOUTH DAILY, # 90 each, 3 Refills, 09/24/21 10:21:00 EDT, [facility] #[id number], 168, cm, 09/24/21 10:10:00 EDT, Height Start [...] Stop 09/19/22 10:25:00 EDT, 09/24/21 10:25:00 EDT, [facility] #[id number], 168, cm, 09/24/21 10:10:00 EDT, Height Start [...] Acute 08/07/23 16:53:00 EST, 08/06/22 16:53:00EST, Ointment, [facility] #[id number], Partial fill upon patient request if the [...] day, # 1 each, 5 Refills, Maintenance, [place] Start Date: 03/15/13 Stop Date: 09/11/13 Status: Ordered furosemide 40 mg oral tablet 1, tablet, By Mouth, Daily, # 90 tablet, Refills 3, Tot. Refills 3, Maintenance, 06/10/22 10:40:00 EST, Route to Pharmacy Electronically, [facility] #[id number], 168, cm, 06/10/22 10:25:00 EST, Height Start Date: 06/10/22 Status: Ordered ipratropium nasal 21 mcg/inh spray See Instructions, PRN Nasal Congestion, 1 spray each nostril BID, # 1 each, 4 Refills, Maintenance,01/01/22 16:02:00 EDT, [facility] #[id number], Partial fill upon patient request if the [...] 0, Maintenance, use overnight and naps from [facility], 08/15/20 12:05:00 EST, Compound Start Date: [...] tablet, Refills 3, Route to Pharmacy Electronically, [facility] #[id number], 168, cm, 03/27/21 14:00:00 EDT, Height, 94.4, [...] 3 Refills, Maintenance, 04/12/20 10:50:00 EDT, Tablet, [facility] #[id number], 162.56, cm, 03/01/20 14:13:00 EDT, Height, 94.4, [...] each, 3 Refills, Maintenance, 02/04/22 10:46:00 EDT, [facility] #[id number], 168, cm, 02/04/22 10:23:00 EDT, Height Start [...] 0 Refills, Maintenance, 10/30/19 13:41:00 EDT, Tablet, [facility] #[id number], 162.56, cm, 08/17/19 16:32:00 EST, Height, 94.4, [...] Confirmed 09/02/10 Active Urinary incontinence Confirmed Active Vital Signs Most recent to oldest [Reference Range]: 1 Height 168 cm (08/19/22 11:17 AM) Weight 75 kg (08/19/22 11:17 AM) Body Mass Index [18.5-24.99 kg/m2] 26.57 kg/m2 *H* (08/19/22 11:17 AM) Blood Pressure [90-138/55-84 mm Hg] 129/ 49mm Hg (08/19/22 11:17 AM) Blood pressure sites Arm, right (08/19/22 11:17 AM) Weight Obtained Via Standing scale (08/19/22 11:17 AM) Social History Social History Type Response Smoking Status Former smoker entered on: 10/04/14 Sex Note * Flor Ferrer: PERFORM, SIGN, VERIFY Event Display: Patient Education/Instruction Authored Date: [id number] [facility] *Armin [facility] Clinical Summary Name RAF BRONSON Age 77 Years 1945 PCP Debi Cisse MD PCP Visit Date 08/19/2022 10:53:00 Additional Instructions: Scheduled Appointments?? Future Appointments ?*[facility] ?[address]??[place],??[place],??[address] ?Phone:??--?Fax:??-- ?Appt. Date:??09/22/2022?11:00 AM ?Scheduled Provider:??Rina Saravia MD ?*[facility] ?[address]??[place],??[place],??[address] ?Phone:??--?Fax:??-- ?Appt. Date:??10/14/2022?1:00 PM ?Scheduled Provider:??Betito OSORIO, Debi Lizama ?*[facility] ?[address]??[place],??[place],??[address] ?Phone:??--?Fax:??-- ?Appt. Date:??10/21/2022?10:20 AM ?Scheduled Provider:??Rina Saravia MD Follow-Up Instructions ?? Diagnosis Medications: Please continue your medications until treatment is completed or stopped by your provider. Discuss any questions related to medications with your provider. Medications to Continue with No Changes These medications were not printed or sent to your pharmacy Amlodipine (amLODIPine 10 mg oral tablet) TAKE 1 TABLET BY MOUTH DAILY. Refills: 3. Next Dose: Ascorbic Acid (Vitamin C 1000 mg oral tablet) 1 tab(s) Oral twice a day. Refills: 0. Next Dose: Atenolol (atenolol 100 mg oral tablet) 1 tab(s) Oral twice a day for 30 Days. Next Dose: Atorvastatin (atorvastatin 20 mg oral tablet) 1 tab(s) Oral Daily for 90 Days. Refills: 3. Next Dose: BusPIRone (busPIRone 5 mg oral tablet) 1 tab(s) Oral 3 times a day. Next Dose: Cholecalciferol (Vitamin D3) Oral Daily. Next Dose: Clobetasol Topical (clobetasol 0.05% topical ointment) 1 brendon Topically Daily. Refills: 1. Next Dose: Duloxetine (duloxetine 60 mg oral enteric coated capsule) 1 capsule Oral Daily. Next Dose: Durable Medical Equipment (Compression Stockings) surgical, knee length 20-30 mm Hg dx: lymphedema. Refills: 1. Next Dose: Durable Medical Equipment (iVAPS to target VA 45.5, EPAP 9, PS min 4, PS max 15, rate 18 with heated humidification) use overnight and [facility]aps from [facility]. Refills: 0. Next Dose: Durable Medical Equipment (L Marko Knee CHECK knee orthosis, wear daily) dx M21.862 dx Q 68.2. Refills: 0. Next Dose: Fluticasone Nasal (fluticasone 50 mcg/inh nasal spray) 1 spray(s) Nares, Both twice a day for 30 Days. Refills: 5. Next Dose: Furosemide (furosemide 40 mg oral tablet) 1 tab(s) Oral Daily. Refills: 3. Next Dose: Ipratropium Nasal (ipratropium nasal 21 mcg/inh spray) 1 spray each nostril BID; as needed Nasal Congestion. Refills: 4. Next Dose: Lamotrigine (lamotrigine 100 mg oral tablet) 2 tab(s) Oral twice a day. Refills: 3. Next Dose: Levothyroxine (levothyroxine 0.075 mg oral tablet) Next Dose: Lorazepam 0.5 Milligram Oral. prn. Next Dose: Losartan (losartan 100 mg oral tablet) 1 tab(s) Oral Daily. To replace valsartan. Refills: 3. Next Dose: Methenamine (methenamine hippurate 1 gm oral tablet) TAKE 1 TABLET BY MOUTH TWICE DAILY. Refills: 3. Next Dose: Miscellaneous Rx (cranberry pills) Next Dose: Miscellaneous Rx (L foot brace) L foot brace dx: L foot drop. Refills: 0. Next Dose: Miscellaneous Rx (omeprazole 20mg) Oral Daily. Next Dose: Multivitamin Oral Daily. Next Dose: Polyethylene Glycol 3350 (MiraLax Powder) 17 gram Oral twice a day. Next Dose: Pregabalin (pregabalin 75 mg oral capsule) 1 capsule Oral Daily. Next Dose: Psyllium (Metamucil 3.4 gm/5.2 gm oral powder for reconstitution) 3.4 gram Oral twice a day. Next Dose: Triamcinolone Nasal (Nasacort Allergy 24HR) 2 spray(s) Daily. Next Dose: Allergy Info:?? Other Food Allergy; Shrimp; Lobster; Dust; Vasotec; ; sulfa drugs; phenobarbital Medications Given This Visit Future Orders ?No future orders Vital Signs Height 168 cm Weight 75 kg BMI 26.57 kg/m2 Blood Pressure 129 mm Hg/49 mm Hg Temperature Pulse Rate Respiratory Rate 02 Sat Mode of Delivery / You can now view a summary of your hospital visit from the comfort of your home through a free online portal called Cymbet. Cymbet is a website that allows you to securely view your medical information including discharge summary, medications and follow-up visits. ??You can alsosend a secure electronic message to your doctor???s office to request appointments, renew medications or just ask a question. You can enroll at [email or web address] or register during your next office visit. Disclaimer:?? The information provided is of a general nature and is intended to be used in conjunction with the recommendations and advice of your health care practitioner. ??Every effort has been made to ensure that the information provided is accurate and complete at the time it is provided to you however, as your needs change, or, as new ??information becomes available, different or additional instructions may be required. If you have questions, please consult with your primary care provider or pharmacist, as appropriate. ??This information is not intended to serve as substitution for assessment and evaluation by a qualified health care provider. If you do not have a primary care provider, you may find a [facility] provider by calling [facility] at [phone]. For information about the plan of care including goals and instructions for your diagnosis, please see the patient education orders section of this document. Patient Education Materials?? The content of this educational material or handout may have been modified, supplemented, or adapted from its original content and format to support your individualized medical care. Please follow instructions discussed with your provider during this visit as well as any education documents you were given today. Patient Care team information Care Team Personnel Name: Marianne Perez RN Position: [facility] RN Member Role: Primary Care Nurse Name: Debi Cisse MD Position: [facility] Primary Care Physician Member Role: PCP Address: Address: [address] [place] [id number] Name: Viola Gonzalez Position: [facility] Outreach Member Role: Lifetime Consulting Physician Care Team Related Persons Name: ITZEL GARCIA Name: AILYN ANDERSON Name: RAF NAVARRETE
--- OUTSIDE RECORDS SUMMARY | 2022-11-22 21:26 | XMS_ITS | Continuity of Care Document ---
Author Name Unknown Organization [facility] [employer] Address [address], [address] [place] [address]- Care Team Providers Care Licensing Specialist Name Role Phone Betito OSORIO, Debi Lizama Primary Care Physician Encounter [facility] Date(s): 06/05/19 - 08/09/19 [facility] [employer] [address]th [place] [address]- Attending Physician: Francesca Larry MD Admitting Physician: Francesca Larry MD Referring Physician: Debi Cisse MD Allergies, [...] Vacc (oldterm) 5 08/12/09 Given 1Location History: skilled nursing 2Result Comment: [06/04/2016] donna 3Result Comment: [04/08/2015] L&C 4Admin Note: [facility] 5Admin Note: DR. PASTOR, [place] Medications amLODIPine 10 mg oral tablet 10 mg, 1, tablet, By Mouth, Daily, # 90 tablet, Refills 3, Tot. Refills 3, Maintenance, 04/13/19 15:01:39 EDT, Route to Pharmacy Electronically, [id number], [facility] #[id number] Start Date: 04/13/19 Status: Ordered atenolol 100 mg oral tablet 1 tablet = 100 mg, By Mouth, 2 times a day, 0 Refills, Maintenance, 10/05/16 9:40:42 Start Date: 10/05/16 Stop Date: 11/07/16 Status: Ordered atorvastatin 20 mg oral tablet 1 tablet = 20 mg, By Mouth, Daily, # 90 tablet, 3 Refills, Maintenance, Tablet, Route to Pharmacy Electronically, [id number], [facility] [address] Start Date: 06/30/18 Status: Ordered baclofen 10 mg oral tablet 20 mg, 2, tablet, By Mouth, Daily, # 180 tablet, Refills 3, Tot. Refills 3, Maintenance, 12/29/18 10:23:44 EDT, Route to Pharmacy Electronically, [id number], [facility] [address] Start Date: 12/29/18 Stop Date: 12/24/19 Status: [...] EDT, Compound Start Date: 12/26/18 Status: Ordered fluticasone 50 mcg/inh nasal spray 1 sprays, Nares, Both, 2 times a day, # 1 each, 5 Refills, Maintenance, [place] Start Date: 03/15/13 Stop Date: 09/11/13 Status: Ordered furosemide 20 mg oral tablet 40 mg, 2, tablet, By Mouth, Daily, # 180 tablet, Refills 3, Tot. Refills 3, Maintenance, 03/24/19 8:27:15 EDT, Route to Pharmacy Electronically, [id number], [facility] #[id number] Start Date: 03/24/19 Stop Date: 03/18/20 Status: [...] supp, 1 Refills, Maintenance, 06/05/19 11:07:00 EST, [facility] #[id number], 162.56, cm, 06/05/19 9:38:00EST, Height, 94.4, kg, [...] 360 tablet, Refills 1 Tot. Refills 1, [facility] #[id number] Start Date: 05/15/19 Status: Ordered Levothroid 0.075 mg oral tablet 1 tablet, By Mouth, Daily, # 30 tablet, 0 Refills, Maintenance, Tablet Start Date: 05/26/10 Status: Ordered LORazepam 0.5 mg oral tablet 1 tablet = 0.5 mg, By Mouth, 3 times a day, 0 Refills, Maintenance, 06/05/19 9:55:00 EST Start Date: 06/05/19 Status: Ordered losartan 100 mg oral tablet [...] 2 times a day, 0 Refills, Maintenance, 10/07/18 10:03:09 EDT Start Date: 10/07/18 Status: Ordered MiraLax Powder = 17 Gm, [...] Start Date: 08/01/14 Status: Ordered Vitamin D3 400 intl units [...]
--- OUTSIDE RECORDS SUMMARY | 2022-11-22 21:26 | XMS_ITS | Continuity of Care Document ---
Author Name Unknown Organization [facility] Address [address] [place] [address]- Care Team Providers Care Trolley Wire Installer Name Role Phone Betito OSORIO, Debi Lizama Primary Care Physician Encounter [facility] Date(s): 05/23/20 - 06/22/20 [facility] [address] [place] [id number] Attending Physician: Josy Morgan Admitting Physician: AdmtrJosy Referring Physician: Admtr, Josy Allergies, Adverse Reactions, Alerts Substance Reaction Severity Status ciprofloxacin Itchy Active phenobarbital Active Active Other Food Allergy 1 SWELLING OF MOUTH Crab Active sulfa drugs Active Vasotec ULCERS IN MOUTH Active Dust [...] Vacc (oldterm) 5 08/12/09 Given 1Admin Note: [facility] 2Location History: senior living 3Result Comment: [06/04/2016] donna 4Result Comment: [04/08/2015] L&C 5Admin Note: DR. PASTOR, [place] Medications amLODIPine 10 mg oral tablet 1 tablet, By Mouth, Daily, # 90 tablet, 3 Refills, Maintenance, 04/12/20 10:49:00 EDT, [facility] #[id number], 162.56, cm, 03/01/20 14:13:00 EDT, Height, 94.4, [...] 3 Refills, Maintenance, 09/20/19 11:46:00 EDT, Tablet, [facility] #49184, 162.56, cm, 08/17/19 16:32:00 EST, Height, 94.4, [...] Gm, 3 Refills, Maintenance, 05/22/20 16:20:00 EST, [facility] #49174, 162.56, cm, 05/13/20 15:07:00 EST, Height, 94.4, kg,06/05/19 9:38:00 EST, Dry Weight Start Date: 05/22/20 Status: Ordered ferrous sulfate 325 mg oral tablet 1 tablet = 325 mg, By Mouth, 3 times a day, May take once daily and increase to 3 times a day if tolerated; take with vitamin C, # 90 tablet, 2 Refills, Maintenance, 08/18/19 13:10:00 EST, Tablet, [facility] #40444, 162.56, cm, 08/17/19 16:3... Start Date: 08/18/19 Status: Ordered fluticasone 50 mcg/inh nasal spray 1 sprays, Nares, Both, 2 times a day, # 1 each, 5 Refills, Maintenance, [place] Start Date: 03/15/13 Stop Date: 09/11/13 Status: Ordered furosemide 20 mg oral tablet 40 mg, 2, tablet, By Mouth, Daily, # 180 tablet, Refills 3, Tot. Refills 3, Maintenance, 03/11/20 14:33:00 EDT, Route to Pharmacy Electronically, [facility] #41927, 162.56, cm, 03/01/20 14:13:00 EDT, Height, 94.4, [...] 8 supp, 5 Refills, Maintenance, 04/29/20 12:11:00EST, [facility], Partial fill upon patient request, [...] 05/13/20 10:26:00 EST, Route to Pharmacy Electronically, [facility] #[id number], 162.56, cm, 04/15/20 14:37:00 EST, Height, 94.4, [...] 3 Refills, Maintenance, 04/12/20 10:50:00 EDT, Tablet, [facility] #47729, 162.56, cm, 03/01/20 14:13:00 EDT, Height, 94.4, [...] 10/24/20 16:37:00 EDT, 04/27/20 16:37:00 EST, Tablet, [facility] #[id number], 162.56, cm, 04/15/20 14:37:00 EST, Height, 94.4, [...] 0 Refills, Maintenance, 10/30/19 13:41:00 EDT, Tablet, [facility] #31038, 162.56, cm, 08/17/19 16:32:00 EST, Height, 94.4, [...]
--- OUTSIDE RECORDS SUMMARY | 2022-11-22 21:26 | XMS_ITS | Continuity of Care Document ---
Author Name Unknown Organization [facility] Address [address], [address], [address] [place] [address]- Care Team Providers Care Hardness Inspector Name Role Phone Betito OSORIO, Debi Lizama Primary Care Physician [phone] Encounter [facility] Date(s): 03/20/20 - 07/18/20 [facility] [address], [address], [address] [place] [id number] Attending Physician: Giovanna Richards MD Admitting Physician: [...] Vacc (oldterm) 5 08/12/09 Given 1Admin Note: [facility] 2Location History: half-way 3Result Comment: [06/04/2016] donna 4Result Comment: [04/08/2015] L&C 5Admin Note: DR. PASTOR, [place] Medications amLODIPine 10 mg oral tablet 1 tablet, By Mouth, Daily, # 90 tablet, 3 Refills, Maintenance, 04/12/20 10:49:00 EDT, [facility] #[id number], 162.56, cm, 03/01/20 14:13:00 EDT, Height, 94.4, [...] 3 Refills, Maintenance, 09/20/19 11:46:00 EDT, Tablet, [facility] #[id number], 162.56, cm, 08/17/19 16:32:00 EST, Height, 94.4, [...] 2 Refills, Maintenance, 08/18/19 13:10:00 EST, Tablet, [facility] #[id number], 162.56, cm, 08/17/19 16:3... Start Date: 08/18/19 Status: Ordered fluticasone 50 mcg/inh nasal spray 1 sprays, Nares, Both, 2 times a day, # 1 each, 5 Refills, Maintenance, [place] Start Date: 03/15/13 Stop Date: 09/11/13 Status: Ordered furosemide 20 mg oral tablet 40 mg, 2, tablet, By Mouth, Daily, # 180 tablet, Refills 3, Tot. Refills 3, Maintenance, 03/11/20 14:33:00 EDT, Route to Pharmacy Electronically, [facility] #52966, 162.56, cm, 03/01/20 14:13:00 EDT, Height, 94.4, [...] 1 each, 4 Refills, Maintenance,07/17/20 12:08:00 EST, [facility] #[id number], Partial fill upon patient request if the [...] 0, Maintenance, use overnight and naps from [facility], 07/17/20 12:23:00 EST, Compound Start Date: 07/17/20 Status: Ordered L Marko Knee CHECK knee [...] 05/13/20 10:26:00 EST, Route to Pharmacy Electronically, [facility] #01757, 162.56, cm, 04/15/20 14:37:00 EST, Height, 94.4, [...] 3 Refills, Maintenance, 04/12/20 10:50:00 EDT, Tablet, [facility] #49770, 162.56, cm, 03/01/20 14:13:00 EDT, Height, 94.4, [...] 10/24/20 16:37:00 EDT, 04/27/20 16:37:00 EST, Tablet, [facility] #47073, 162.56, cm, 04/15/20 14:37:00 EST, Height, 94.4, [...] 0 Refills, Maintenance, 10/30/19 13:41:00 EDT, Tablet, [facility] #34309, 162.56, cm, 08/17/19 16:32:00 EST, Height, 94.4, [...]
--- OUTSIDE RECORDS SUMMARY | 2022-11-22 21:26 | XMS_ITS | Continuity of Care Document ---
Author Name Unknown Organization [facility] Address [address] [place] [address]- Care Team Providers Care Sheet Metal Operator Name Role Phone Betito OSORIO, Debi Lizama Primary Care Physician Encounter [facility] Date(s): 08/20/20 - 09/19/20 [facility] [address] [address]- Allergies, Adverse Reactions, Alerts Substance Reaction Severity [...] Vacc (oldterm) 5 08/12/09 Given 1Admin Note: [facility] 2Location History: senior care 3Result Comment: [06/04/2016] donna 4Result Comment: [04/08/2015] L&C 5Admin Note: DR. PASTOR, [place] Medications amLODIPine 10 mg oral tablet 1 tablet, By Mouth, Daily, # 90 tablet, 3 Refills, Maintenance, 04/12/20 10:49:00 EDT, [facility] #[id number], 162.56, cm, 03/01/20 14:13:00 EDT, Height, 94.4, [...] 1 Refills, Maintenance, 09/07/20 9:48:00 EDT, Tablet, [facility] #[id number], 168, cm, 05/23/20 10:09:00 EST, Height, 94.4, [...] 2 Refills, Maintenance, 08/18/19 13:10:00 EST, Tablet, [facility] #53784, 162.56, cm, 08/17/19 16:3... Start Date: 08/18/19 Status: Ordered fluticasone 50 mcg/inh nasal spray 1 sprays, Nares, Both, 2 times a day, # 1 each, 5 Refills, Maintenance, [place] Start Date: 03/15/13 Stop Date: 09/11/13 Status: Ordered furosemide 20 mg oral tablet 40 mg, 2, tablet, By Mouth, Daily, # 180 tablet, Refills 3, Tot. Refills 3, Maintenance, 03/11/20 14:33:00 EDT, Route to Pharmacy Electronically, [facility] #[id number], 162.56, cm, 03/01/20 14:13:00 EDT, Height, 94.4, kg, 06/05/19 9:38:00 EST DTan.. Start Date: 03/11/20 Stop Date: 03/06/21 Status: Ordered ibuprofen 800 mg oral tablet 800 mg, 1, tablet, By Mouth, 3 times a day, Refills 0, Maintenance, 06/20/18 9:23:45 EST Start Date: 06/20/18 Status: Ordered ipratropium nasal 21 mcg/inh spray See Instructions, PRN Nasal Congestion, 1 spray each nostril BID, # 1 each, 4 Refills, Maintenance,07/17/20 12:08:00 EST, [facility] #[id number], Partial fill upon patient request if the [...] 0, Maintenance, use overnight and naps from [facility], 08/15/20 12:05:00 EST, Compound Start Date: [...] 05/13/20 10:26:00 EST, Route to Pharmacy Electronically, [facility] #[id number], 162.56, cm, 04/15/20 14:37:00 EST, Height, 94.4, [...] 3 Refills, Maintenance, 04/12/20 10:50:00 EDT, Tablet, [facility] #[id number], 162.56, cm, 03/01/20 14:13:00 EDT, Height, 94.4, [...] 10/24/20 16:37:00 EDT, 04/27/20 16:37:00 EST, Tablet, [facility] #[id number], 162.56, cm, 04/15/20 14:37:00 EST, Height, 94.4, [...] 0 Refills, Maintenance, 10/30/19 13:41:00 EDT, Tablet, [facility] #[id number], 162.56, cm, 08/17/19 16:32:00 EST, Height, 94.4, [...]
--- OUTSIDE RECORDS SUMMARY | 2022-11-22 21:26 | XMS_ITS | Continuity of Care Document ---
Author Name Unknown Organization [facility] [employer] [facility] Address [address] [place] [address]- Care Team Providers Care Blood Bank Custodian Name Role Phone Betito OSORIO, Debi Lizama Primary Care Physician Encounter [facility] Date(s): 10/21/22 - 11/20/22 [facility] [address] [place] [address]- [place] Allergies, Adverse Reactions, Alerts Substance Reaction [...] Vacc (oldterm) 5 08/12/09 Given 1Admin Note: [facility] 2Location History: correction 3Result Comment: [06/04/2016] donna 4Result Comment: [04/08/2015] L&C 5Admin Note: DR. PASTOR, [place] Medications amLODIPine 10 mg oral tablet See Instructions, TAKE 1 TABLET BY MOUTH DAILY, # 90 each, 3 Refills, 09/24/21 10:21:00 EDT, [facility] #[id number], 168, cm, 09/24/21 10:10:00 EDT, Height Start Date: 09/24/21 Status: Ordered busPIRone 5 mg oral tablet 5 mg, 1, tablet, By Mouth, 3 times a day, # 90 tablet, Refills 0, Maintenance, 09/24/21 10:12:00 EDT, Partial fill upon patient request if the prescription is for a schedule II opioid drug. Start Date: 09/24/21 Status: Ordered clobetasol 0.05% topical ointment See Instructions, 1 application Topically twice weekly to affected area apply a thin film, # 60 Gm,1 Refills, Acute 10/14/23 16:19:00 EDT, 10/13/22 16:19:00 EDT, Ointment, Partial fill upon patient request if the prescription is for a schedule II op... Start Date: 10/13/22 Stop Date: 10/14/23 Status: Ordered Compression Stockings See Instructions, # 1 pair, Refills 1, Tot. Refills 1, Maintenance, surgical, knee length 20-30 mm Hg dx: lymphedema, 04/19/17 10:29:54, Compound Start Date: 04/19/17 Status: Ordered cranberry pills cranberry pills, Refills 0, Maintenance, 12/26/18 9:59:44 EDT, Compound Start Date: 12/26/18 Status: Ordered Escitalopram By Mouth, Daily, 0 Refills, Maintenance, 10/12/22 17:24:00 EDT, Partial fill upon patient request if the prescription is for a schedule II opioid drug. Start Date: 10/12/22 Status: Ordered fluticasone 50 mcg/inh nasal spray 1 sprays, Nares, Both, 2 times a day, # 1 each, 5 Refills, Maintenance, [place] Start Date: 03/15/13 Stop Date: 09/11/13 Status: Ordered furosemide 40 mg oral tablet 1, tablet, By Mouth, Daily, # 90 tablet, Refills 3, Tot. Refills 3, Maintenance, 06/10/22 10:40:00 EST, Route to Pharmacy Electronically, [facility] #[id number], 168, cm, 06/10/22 10:25:00 EST, Height Start Date: 06/10/22 Status: Ordered ipratropium nasal 21 mcg/inh spray See Instructions, PRN Nasal Congestion, 1 spray each nostril BID, # 1 each, 4 Refills, Maintenance,01/01/22 16:02:00 EDT, [facility] #33534, Partial fill upon patient request if the [...] 0, Maintenance, use overnight and naps from [facility], 08/15/20 12:05:00 EST, Compound Start [...] tablet, Refills 3, Route to Pharmacy Electronically, [facility] #65790, 168, cm, 03/27/21 14:00:00 EDT, Height, 94.4, [...] 3 Refills, Maintenance, 04/12/20 10:50:00 EDT, Tablet, [facility] #54191, 162.56, cm, 03/01/20 14:13:00 EDT, Height, 94.4, [...] each, 3 Refills, Maintenance, 02/04/22 10:46:00 EDT, [facility] #44258, 168, cm, 02/04/22 10:23:00 EDT, Height Start [...] Compound Start Date: 12/26/18 Status: Ordered Vitamin C 1000 mg oral tablet 1 tablet = 1,000 mg, By Mouth, 2 times a day, # 60 tablet, 0 Refills, Maintenance, 10/30/19 13:41:00 EDT, Tablet, [facility]18736, 162.56, cm, 08/17/19 16:32:00 EST, Height, 94.4, [...] Team Personnel Name: Marianne Perez RN Position: [facility] RN Member Role: Primary Care Nurse Name: Debi Cisse MD Position: [facility] Physician - Primary Care Member Role: PCP Address: Address: [address] [place] [address] [place] [address]- Name: Viola Gonzalez Position: [facility] Outreach Member Role: Lifetime Consulting Physician Care Team Related Persons Name: ITZEL GARCIA Name: AILYN ANDERSON Name: RAF NAVARRETE
--- OUTSIDE RECORDS SUMMARY | 2022-11-22 21:26 | XMS_ITS | Continuity of Care Document ---
Author Name Unknown Organization [facility] Address [address] [place] [address]- Care Team Providers Care Containers Sales Representative Name Role Phone Betito OSORIO, Debi Lizama Primary Care Physician Encounter [facility] Date(s): 12/11/20 - 01/10/21 [facility] [address] [place] [id number] Attending Physician: Admtr, Ar8 Admitting Physician: Admtr, Ar8 Referring Physician: Admtr, Ar8 Allergies, Adverse Reactions, Alerts Substance Reaction Severity [...] Vacc (oldterm) 5 08/12/09 Given 1Admin Note: [facility] 2Location History: alf 3Result Comment: [06/04/2016] donna 4Result Comment: [04/08/2015] L&C 5Admin Note: DR. PASTOR, [place] Medications amLODIPine 10 mg oral tablet 1 tablet, By Mouth, Daily, # 90 tablet, 3 Refills, Maintenance, 04/12/20 10:49:00 EDT, [facility] #74089, 162.56, cm, 03/01/20 14:13:00 EDT, Height, 94.4, [...] 1 Refills, Maintenance, 09/07/20 9:48:00 EDT, Tablet, [facility] #33947, 168, cm, 05/23/20 10:09:00 EST, Height, 94.4, [...] 2 Refills, Maintenance, 08/18/19 13:10:00 EST, Tablet, [facility] #34807, 162.56, cm, 08/17/19 16:3... Start Date: 08/18/19 Status: Ordered fluticasone 50 mcg/inh nasal spray 1 sprays, Nares, Both, 2 times a day, # 1 each, 5 Refills, Maintenance, [place] Start Date: 03/15/13 Stop Date: 09/11/13 Status: Ordered furosemide 20 mg oral tablet 40 mg, 2, tablet, By Mouth, Daily, # 180 tablet, Refills 3, Tot. Refills 3, Maintenance, 03/11/20 14:33:00 EDT, Route to Pharmacy Electronically, [facility] #00902, 162.56, cm, 03/01/20 14:13:00 EDT, Height, 94.4, kg, 06/05/19 9:38:00 EST, D... Start Date: 03/11/20 Stop Date: 03/06/21 Status: Ordered ipratropium nasal 21 mcg/inh spray See Instructions, PRN Nasal Congestion, 1 spray each nostril BID, # 1 each, 4 Refills, Maintenance,07/17/20 12:08:00 EST, [facility] #90791, Partial fill upon patient request if the [...] 10/07/20 8:20:00 EDT, Route to Pharmacy Electronically, [facility] #18691, 168, cm, 05/23/20 10:09:00 EST, Height, 94.4, [...] 3 Refills, Maintenance, 04/12/20 10:50:00 EDT, Tablet, [facility] #04040, 162.56, cm, 03/01/20 14:13:00 EDT, Height, 94.4, [...] 0 Refills, Maintenance, 10/30/19 13:41:00 EDT, Tablet, [facility] #94139, 162.56, cm, 08/17/19 16:32:00 EST, Height, 94.4, [...]
--- OUTSIDE RECORDS SUMMARY | 2022-11-22 21:26 | XMS_ITS | Continuity of Care Document ---
Author Name Unknown Organization [facility] Address [address] [place] [address]- Care Team Providers Care Philosophy Instructor Name Role Phone Betito OSORIO, Debi M Primary Care Physician [phone] Encounter [facility] Date(s): 04/29/21 - 05/29/21 [facility] [address] [place] [address]- [place] Allergies, Adverse Reactions, Alerts Substance Reaction [...] Vacc (oldterm) 5 08/12/09 Given 1Admin Note: [facility] 2Location History: long-term 3Result Comment: [06/04/2016] donna 4Result Comment: [04/08/2015] L&C 5Admin Note: DR. PASTOR, [facility] amLODIPine 10 mg oral tablet 1 tablet, By Mouth, Daily, # 90 tablet, 3 Refills, Maintenance, 04/12/20 10:49:00 EDT, [facility] #63672, 162.56, cm, 03/01/20 14:13:00 EDT, Height, 94.4, kg, 06/05/19 9:38:00 EST, Dry Weight Start Date: 04/12/20 Status: Ordered amLODIPine 10 mg oral tablet See Instructions, TAKE 1 TABLET BY MOUTH DAILY, # 90 each, 1 Refills, 05/28/21 13:34:00 EST, [facility] #01420, 168, cm, 03/27/21 14:00:00 EDT, Height, 94.4, kg, 06/05/19 9:38:00 EST, Dry Weight Start Date: 05/28/21 Status: Ordered atenolol 100 mg oral tablet 1 tablet = 100 mg, By Mouth, 2 times a day, 0 Refills, Maintenance, 10/05/16 9:40:42 Start Date: 10/05/16 Stop Date: 11/07/16 Status: Ordered atorvastatin 20 mg oral tablet 1 tablet, By Mouth, Daily, # 90 tablet, 1 Refills, [facility] #58100, 168, cm, 11/13/20 13:18:00 EDT, Height, 94.4, kg, 06/05/19 9:38:00 EST, Dry Weight Start Date: 03/05/21 Status: Ordered Compression Stockings See Instructions, # [...] day, # 1 each, 5 Refills, Maintenance, [place] Start Date: 03/15/13 Stop Date: 09/11/13 Status: Ordered furosemide 20 mg oral tablet 40 mg, 2, tablet, By Mouth, Daily, # 180 tablet, Refills 3, Tot. Refills 3, Maintenance, 03/11/20 14:33:00 EDT, Route to Pharmacy Electronically, [facility] #50200, 162.56, cm, 03/01/20 14:13:00 EDT, Height, 94.4, kg, 06/05/19 9:38:00 EST, D... Start Date: 03/11/20 Stop Date: 03/06/21 Status: Ordered ipratropium nasal 21 mcg/inh spray See Instructions, PRN Nasal Congestion, 1 spray each nostril BID, # 1 each, 4 Refills, Maintenance,07/17/20 12:08:00 EST, [facility] #89720, Partial fill upon patient request if the [...] 0, Maintenance, [facility], 08/15/20 12:05:00 EST, Compound Start Date: 08/15/20 [...] tablet, Refills 3, Route to Pharmacy Electronically, [facility] #60524, 168, cm, 03/27/21 14:00:00 EDT, Height, 94.4, [...] 3 Refills, Maintenance, 04/12/20 10:50:00 EDT, Tablet, [facility] #64939, 162.56, cm, 03/01/20 14:13:00 EDT, Height, 94.4, [...] TABLET BY MOUTH TWICE DAILY, # 180 tablet, 1 Refills, Maintenance, 04/29/21 18:47:00 EST, [facility] #03431, 168, cm, 03/27/21 14:00:00 EDT, Height, 94.4, kg, 06/05/19 9:38:00 EST, Dry Weight Start Date: 04/29/21 Status: Ordered MiraLax Powder = 17 Gm, [...] 0 Refills, Maintenance, 10/30/19 13:41:00 EDT, Tablet, [facility] #64704, 162.56, cm, 08/17/19 16:32:00 EST, Height, 94.4, [...] Active Migraine(Confirmed) Active CARMEN on CPAP(Confirmed) Active Resting tremor(Confirmed) Active Restless leg syndrome(Confirmed) Active 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
--- OUTSIDE RECORDS SUMMARY | 2022-11-22 21:26 | XMS_ITS | Continuity of Care Document ---
Author Name Unknown Organization [facility] Address [address] [place] [address]- Care Team Providers Care Genetics Nurse Name Role Phone Debi Cisse MD Primary Care Physician Encounter [facility] Date(s): 10/14/22 - 10/21/22 [facility] [address] [place] [address]- Attending Physician: Debi Cisse MD Allergies, Adverse [...] Vacc (oldterm) 5 08/12/09 Given 1Admin Note: [facility] 2Location History: fpc 3Result Comment: [06/04/2016] donna 4Result Comment: [04/08/2015] L&C 5Admin Note: DR. PASTOR, [place] Medications amLODIPine 10 mg oral tablet See Instructions, TAKE 1 TABLET BY MOUTH DAILY, # 90 each, 3 Refills, 09/24/21 10:21:00 EDT, [facility] #49919, 168, cm, 09/24/21 10:10:00 EDT, Height Start Date: 09/24/21 Status: Ordered atenolol 100 mg oral tablet 1 tablet = 100 mg, By Mouth, 2 times a day, 0 Refills, Maintenance, 10/05/16 9:40:42 Start Date: 10/05/16 Stop Date: 11/07/16 Status: Ordered busPIRone 5 mg oral tablet [...] day, # 1 each, 5 Refills, Maintenance, [place] Start Date: 03/15/13 Stop Date: 09/11/13 Status: Ordered furosemide 40 mg oral tablet 1, tablet, By Mouth, Daily, # 90 tablet, Refills 3, Tot. Refills 3, Maintenance, 06/10/22 10:40:00 EST, Route to Pharmacy Electronically, [facility] #91060, 168, cm, 06/10/22 10:25:00 EST, Height Start Date: 06/10/22 Status: Ordered ipratropium nasal 21 mcg/inh spray See Instructions, PRN Nasal Congestion, 1 spray each nostril BID, # 1 each, 4 Refills, Maintenance,01/01/22 16:02:00 EDT, [facility] #09500, Partial fill upon patient request if the [...] 0, Maintenance, use overnight and naps from [facility], 08/15/20 12:05:00 EST, Compound Start Date: [...] tablet, Refills 3, Route to Pharmacy Electronically, [facility] #84634, 168, cm, 03/27/21 14:00:00 EDT, Height, 94.4, [...] 3 Refills, Maintenance, 04/12/20 10:50:00 EDT, Tablet, [facility] #39707, 162.56, cm, 03/01/20 14:13:00 EDT, Height, 94.4, [...] each, 3 Refills, Maintenance, 02/04/22 10:46:00 EDT, [facility] #16130, 168, cm, 02/04/22 10:23:00 EDT, Height Start [...] 0 Refills, Maintenance, 10/30/19 13:41:00 EDT, Tablet, [facility] #48412, 162.56, cm, 08/17/19 16:32:00 EST, Height, 94.4, [...] oldest [Reference Range]: 1 Height 168 cm (10/14/22 12:48 PM) Oxygen Saturation [94-100 %] 96 % (10/14/22 12:48 PM) Pulse Rate [55-90 bpm] 55 bpm (10/14/22 12:48 PM) Blood Pressure [90-138/55-84 mm Hg] 134/ 68mm Hg (10/14/22 12:48 PM) Temperature [96.8-100.4 DegF] 98.6 DegF (10/14/22 12:48 PM) Liters per Minute 0 L/min (10/14/22 12:48 PM) Mode of Delivery (Oxygen) Room air (10/14/22 12:48 PM) Blood pressure sites Arm, right (10/14/22 12:48 PM) Temperature Route Temporal (10/14/22 12:48 PM) Social History Social History Type Response Smoking Status Former smoker entered on: 10/04/14 Sex Note * Sirena Choudhury: PERFORM, SIGN, VERIFY Event Display: Patient Education/Instruction Authored Date: [id number] [facility] *BMP [facility] Bltn Clinical Summary Name RAF BRONSON Age 77 Years 1945 PCP Betito OSORIO, Debi Lizama PCP Visit Date 10/14/2022 12:45:00 Additional Instructions: Scheduled Appointments?? Future Appointments ?*[facility] ?[address]??[place],??[place],??[address] ?Phone:??--?Fax:??-- ?Appt. Date:??11/24/2022?1:00 PM ?Scheduled Provider:??Rani OSORIO, Rina Arreguin Follow-Up Instructions ?? Diagnosis Medications: Please continue [...] a day for 30 Days. Next Dose: BusPIRone (busPIRone 5 mg oral tablet) 1 tab(s) Oral 3 times a day. Next Dose: Cholecalciferol (Vitamin D3) Oral Daily. Next Dose: Clobetasol Topical (clobetasol 0.05% topical ointment) 1 application Topically twice weekly to affected area apply a thin film. Refills: 1. Next Dose: Durable Medical Equipment (Compression Stockings) [...] dx Q 68.2. Refills: 0. Next Dose: Escitalopram Oral Daily. Next Dose: Fluticasone Nasal (fluticasone 50 mcg/inh [...] gram Oral twice a day. Next Dose: Psyllium (Metamucil 3.4 gm/5.2 gm oral powder for reconstitution) 3.4 gram Oral twice a day. Next Dose: Triamcinolone Nasal (Nasacort Allergy 24HR) 2 spray(s) Daily. Next Dose: No Longer Take the Following Medications Duloxetine (duloxetine 60 mg oral enteric coated capsule) 1 capsule Oral Daily. Allergy Info:?? Other Food Allergy; Shrimp; Lobster; Dust; Vasotec; ; sulfa drugs; phenobarbital Medications Given This Visit Future Orders ?No future orders Vital Signs Height 168 cm Weight BMI Blood Pressure 134 mm Hg/68 mm Hg Temperature 98.6 DegF Pulse Rate 55 bpm Respiratory Rate 02 Sat Mode of Delivery 96 %/Room air You can now view a summary of your hospital visit from the comfort of your home through a free online portal called [employer]. [employer] is a website that allows you to securely view your medical information including discharge summary, medications and follow-up visits. ??You can alsosend a secure electronic message to your doctor???s office to request appointments, renew medications or just ask a question. You can enroll at [email or web address] or register during your next office visit. [...] primary care provider, you may find a [facility] provider by calling [facility] at [phone]. For information about the plan of care including goals and instructions for your diagnosis, please see the patient education orders section of this document. Patient Education Materials?? The content of this educational material or handout may have been modified, supplemented, or adapted from its original content and format to support your individualized medical care. Patient Care team information Care Team Personnel Name: Marianne Perez RN Position: [facility] RN Member Role: Primary Care Nurse Name: Debi Cisse MD Position: [facility] Primary Care Physician Member Role: PCP Address: Address: [address] [place] [address] Adult [place], [place] [address] Name: Viola Gonzalez Position: [facility] Outreach Member Role: Lifetime Consulting Physician Care Team Related Persons Name: ITZEL GARCIA Name: AILYN ANDERSON Name: RAF NAVARRETE
--- OUTSIDE RECORDS SUMMARY | 2022-11-22 21:26 | XMS_ITS | Continuity of Care Document ---
Author Name Unknown Organization [facility] Address [address] [place] [address]- Care Team Providers Care Industrial Designer Name Role Phone Debi Cisse MD Primary Care Phys[id number] Date[facility] 02/04/22 - 02/11/22 [facility] [address] [place] [address]- Attending Physician: Debi Cisse MD Allergies, Adverse Reactions, Alerts Substance Reaction Severity Status ciprofloxacin Itchy Active phenobarbital Active Lobster BLOODY STOOLS Active Shrimp MOUTH SWELLED Active Other Food Allergy 1 SWELLING OF MOUTH Crab Active sulfa drugs Active Vasotec ULCERS IN MOUTH Active Active Dust Dust allergy tongue swells Active 1CRAB Immunizations Given and Recorded Vaccine [...] Vacc (oldterm) 5 08/12/09 Given 1Admin Note: [facility] 2Location History: residential 3Result Comment: [06/04/2016] donna 4Result Comment: [04/08/2015] L&C 5Admin Note: DR. PASTOR, [place] Medications amLODIPine 10 mg oral tablet See Instructions, TAKE 1 TABLET BY MOUTH DAILY, # 90 each, 3 Refills, 09/24/21 10:21:00 EDT, [facility] #[id number], 168, cm, 09/24/21 10:10:00 EDT, Height Start [...] Stop 09/19/22 10:25:00 EDT, 09/24/21 10:25:00 EDT, [facility] #54875, 168, cm, 09/24/21 10:10:00 EDT, Height Start [...] day, # 1 each, 5 Refills, Maintenance, [place] Start Date: 03/15/13 Stop Date: 09/11/13 Status: Ordered ipratropium nasal 21 mcg/inh spray See Instructions, PRN Nasal Congestion, 1 spray each nostril BID, # 1 each, 4 Refills, Maintenance,01/01/22 16:02:00 EDT, [facility] #81674, Partial fill upon patient request if the [...] Maintenance, use overnight and naps from [facility], 08/15/20 12:05:00 EST, Compound Start Date: 08/15/20 [...] tablet, Refills 3, Route to Pharmacy Electronically, [facility] #08783, 168, cm, 03/27/21 14:00:00 EDT, Height, 94.4, [...] 3 Refills, Maintenance, 04/12/20 10:50:00 EDT, Tablet, [facility] #47888, 162.56, cm, 03/01/20 14:13:00 EDT, Height, 94.4, [...] each, 3 Refills, Maintenance, 02/04/22 10:46:00 EDT, [facility] #90529, 168, cm, 02/04/22 10:23:00 EDT, Height Start [...] 0 Refills, Maintenance, 10/30/19 13:41:00 EDT, Tablet, [facility] #03659, 162.56, cm, 08/17/19 16:32:00 EST, Height, 94.4, [...] oldest [Reference Range]: 1 Height 168 cm (02/04/22 10:23 AM) Oxygen Saturation [94-100 %] 96 % (02/04/22 10:23 AM) Pulse Rate [55-90 bpm] 62 bpm (02/04/22 10:23 AM) Blood Pressure [90-138/55-84 mm Hg] 126/ 78mm Hg (02/04/22 10:23 AM) Temperature [96.8-100.4 DegF] 97.5 DegF (02/04/22 10:23 AM) Liters per Minute 0 L/min (02/04/22 10:23 AM) Mode of Delivery (Oxygen) Room air (02/04/22 10:23 AM) Blood pressure sites Arm, left (02/04/22 10:23 AM) Temperature Route Temporal (02/04/22 10:23 AM) Weight Obtained Via Standing scale (02/04/22 10:23 AM) Social History Social History Type Response Smoking Status Former smoker entered on: 10/04/14 Sex Care Team Personnel Name: Debi Cisse MD Address: [address] [place] [address] Adult [place], [place] [address]
--- OUTSIDE RECORDS SUMMARY | 2022-11-22 21:26 | XMS_ITS | Continuity of Care Document ---
Author Name Unknown Organization [facility] [email or web address] Address [address] [place] [address]- Care Team Providers Care Bridges Supervisor Name Role Phone Betito OSORIO, Debi Lizama Primary Care Phys[id number] Date(s): 02/23/22 - 03/25/22 [email or web address] [facility] [address] [place] [address]- [place] Allergies, Adverse Reactions, Alerts Substance Reaction [...] Vacc (oldterm) 5 08/12/09 Given 1Admin Note: [facility] 2Location History: residential 3Result Comment: [06/04/2016] donna 4Result Comment: [04/08/2015] L&C 5Admin Note: DR. PASTOR, [place] Medications amLODIPine 10 mg oral tablet See Instructions, TAKE 1 TABLET BY MOUTH DAILY, # 90 each, 3 Refills, 09/24/21 10:21:00 EDT, [facility] #01843, 168, cm, 09/24/21 10:10:00 EDT, Height Start [...] Stop 09/19/22 10:25:00 EDT, 09/24/21 10:25:00 EDT, [facility] #02914, 168, cm, 09/24/21 10:10:00 EDT, Height Start [...] day, # 1 each, 5 Refills, Maintenance, [place] Start Date: 03/15/13 Stop Date: 09/11/13 Status: Ordered ipratropium nasal 21 mcg/inh spray See Instructions, PRN Nasal Congestion, 1 spray each nostril BID, # 1 each, 4 Refills, Maintenance,01/01/22 16:02:00 EDT, [facility] #83041, Partial fill upon patient request if the [...] Maintenance, use overnight and naps from [facility], 08/15/20 12:05:00 EST, Compound Start Date: [...] tablet, Refills 3, Route to Pharmacy Electronically, [facility] #23753, 168, cm, 03/27/21 14:00:00 EDT, Height, 94.4, [...] 3 Refills, Maintenance, 04/12/20 10:50:00 EDT, Tablet, [facility] #19944, 162.56, cm, 03/01/20 14:13:00 EDT, Height, 94.4, [...] each, 3 Refills, Maintenance, 02/04/22 10:46:00 EDT, [facility] #22632, 168, cm, 02/04/22 10:23:00 EDT, Height Start [...] 0 Refills, Maintenance, 10/30/19 13:41:00 EDT, Tablet, [facility] #63033, 162.56, cm, 08/17/19 16:32:00 EST, Height, 94.4, [...] Personnel Name: Debi Cisse MD Address: Address: [address] [place] [address]
--- OUTSIDE RECORDS SUMMARY | 2022-11-22 21:26 | XMS_ITS | Continuity of Care Document ---
Author Name Unknown Organization [facility] Address [address] [place] [address]- Care Team Providers Care Tender Coordinator Name Role Phone Betito OSORIO, Debi M Primary Care Physician [phone] Encounter [facility] Date(s): 09/24/21 - 10/01/21 [facility] [address] [place] [address]- Attending Physician: Ángel Uribe MD Allergies, Adverse Reactions, Alerts Substance Reaction [...] Vacc (oldterm) 5 08/12/09 Given 1Admin Note: [facility] 2Location History: assisted 3Result Comment: [06/04/2016] donna 4Result Comment: [04/08/2015] L&C 5Admin Note: DR. PASTOR, [place] Medications amLODIPine 10 mg oral tablet See Instructions, TAKE 1 TABLET BY MOUTH DAILY, # 90 each, 3 Refills, 09/24/21 10:21:00 EDT, [facility] #[id number], 168, cm, 09/24/21 10:10:00 EDT, Height Start [...] Stop 09/19/22 10:25:00 EDT, 09/24/21 10:25:00 EDT, [facility] #[id number], 168, cm, 09/24/21 10:10:00 EDT, Height Start [...] day, # 1 each, 5 Refills, Maintenance, [place] Start Date: 03/15/13 Stop Date: 09/11/13 Status: Ordered furosemide 20 mg oral tablet 40 mg, 2, tablet, By Mouth, Daily, # 180 tablet, Refills 3, Tot. Refills 3, Maintenance, 03/11/20 14:33:00 EDT, Route to Pharmacy Electronically, [facility] #[id number], 162.56, cm, 03/01/20 14:13:00 EDT, Height, 94.4, kg, 06/05/19 9:38:00 EST, D... Start Date: 03/11/20 Stop Date: 03/06/21 Status: Ordered ipratropium nasal 21 mcg/inh spray See Instructions, PRN Nasal Congestion, 1 spray each nostril BID, # 1 each, 4 Refills, Maintenance,07/17/20 12:08:00 EST, [facility] #[id number], Partial fill upon patient request if the [...] tablet, Refills 3, Route to Pharmacy Electronically, [facility] #[id number], 168, cm, 03/27/21 14:00:00 EDT, Height, 94.4, kg, 06/05/19 9:38:00 EST, DryWeight Start Date: 04/04/21 Status: Ordered levothyroxine 0.075 mg oral tablet 0 Refills, Maintenance, 08/15/19 15:34:00 EST Start Date: 08/15/19 Status: Ordered Lorazepam = 0.5 mg, By Mouth, prn, 0 Refills, Maintenance, 08/15/19 15:31:00 EST Start Date: 08/15/19 Status: Ordered LORazepam 0.5 mg oral tablet 1 tablet = 0.5 mg, By Mouth, 3 times a day, PRN for anxiety, for 30 days, # 90 tablet, 0 Refills, Acute 10/24/21 12:29:00 EDT, 09/24/21 12:29:00 EDT, Tablet, [facility] #18675, 168, cm, 09/24/21 10:10:00 EDT, Height Start Date: 09/24/21 Stop Date: 10/24/21 Status: Ordered losartan 100 mg oral tablet 1 tablet = 100 mg, By Mouth, Daily, To replace valsartan, # 90 tablet, 3 Refills, Maintenance, 04/12/20 10:50:00 EDT, Tablet, [facility] #31177, 162.56, cm, 03/01/20 14:13:00 EDT, Height, 94.4, [...] DAILY, # 180 tablet, 1 Refills, Maintenance, 09/24/21 10:21:00 EDT, [facility] #65285, 168, cm, 09/24/21 10:10:00 EDT, Height Start Date: 09/24/21 Status: Ordered MiraLax Powder = 17 Gm, [...] 0 Refills, Maintenance, 10/30/19 13:41:00 EDT, Tablet, [facility] #96657, 162.56, cm, 08/17/19 16:32:00 EST, Height, 94.4, [...] oldest [Reference Range]: 1 Height 168 cm (09/24/21 10:10 AM) Weight 73.1 kg (09/24/21 10:10 AM) Oxygen Saturation [94-100 %] 96 % (09/24/21 10:10 AM) Pulse Rate [55-90 bpm] 75 bpm (09/24/21 10:10 AM) Body Mass Index [18.5-24.99] 25.9 *H* (09/24/21 10:10 AM) Blood Pressure [90-138/55-84 mm Hg] 138/ 68mm Hg (09/24/21 10:10 AM) Temperature [96.8-100.4 DegF] 97.8 DegF (09/24/21 10:10 AM) Liters per Minute 0 L/min (09/24/21 10:10 AM) Mode of Delivery (Oxygen) Room air (09/24/21 10:10 AM) Blood pressure sites Arm, left (09/24/21 10:10 AM) Temperature Route Temporal (09/24/21 10:10 AM) Weight Obtained Via Standing scale (09/24/21 10:10 AM) Social History Social History Type Response Smoking Status Former smoker entered on: 10/04/14 Sex
--- OUTSIDE RECORDS SUMMARY | 2022-11-22 21:26 | XMS_ITS | Continuity of Care Document ---
Author Name Unknown Organization [facility] Address [address], [address] [place] [address]- Care Team Providers Care Title Coordinator Name Role Phone Betito OSORIO, Debi Lizama Primary Care Physician Encounter [facility] Date(s): 09/07/19 - 09/17/19 [facility] [address], [address]th [place] [address]- Attending Physician: Admtr, [id number] Admitting Physician: Admtr, [...] donna 3Result Comment: [04/08/2015] L&C 4Admin Note: [facility] 5Admin Note: DR. PASTOR, [place] Medications amLODIPine 10 mg oral tablet 10 mg, 1, tablet, By Mouth, Daily, # 90 tablet, Refills 3, Tot. Refills 3, Maintenance, 04/13/19 15:01:39 EDT, Route to Pharmacy Electronically, [id number], [facility] #[id number] Start Date: 04/13/19 Status: Ordered atenolol 100 mg oral tablet 1 tablet = 100 mg, By Mouth, 2 times a day, 0 Refills, Maintenance, 10/05/16 9:40:42 Start Date: 10/05/16 Stop Date: 11/07/16 Status: Ordered atorvastatin 20 mg oral tablet 1 tablet = 20 mg, By Mouth, Daily, # 90 tablet, 3 Refills, Maintenance, Tablet, Route to Pharmacy Electronically, [id number], [facility] [address]371 Start Date: 06/30/18 Status: Ordered baclofen 10 mg oral tablet 20 mg, 2, tablet, By Mouth, Daily, # 180 tablet, Refills 3, Tot. Refills 3, Maintenance, 12/29/18 10:23:44 EDT, Route to Pharmacy Electronically, [id number], [facility] [id number] Start Date: 12/29/18 Stop Date: 12/24/19 Status: [...] 2 Refills, Maintenance, 08/18/19 13:10:00 EST, Tablet, [facility] #51990, 162.56, cm, 08/17/19 16:3... Start Date: 08/18/19 Status: Ordered fluticasone 50 mcg/inh nasal spray 1 sprays, Nares, Both, 2 times a day, # 1 each, 5 Refills, Maintenance, [place] Start Date: 03/15/13 Stop Date: 09/11/13 Status: Ordered furosemide 20 mg oral tablet 40 mg, 2, tablet, By Mouth, Daily, # 180 tablet, Refills 3, Tot. Refills 3, Maintenance, 03/24/19 8:27:15 EDT, Route to Pharmacy Electronically, [id number], [facility] #[id number] Start Date: 03/24/19 Stop Date: 03/18/20 Status: [...] supp, 1 Refills, Maintenance, 06/05/19 11:07:00 EST, [facility] #81210, 162.56, cm, 06/05/19 9:38:00EST, Height, 94.4, kg, [...] 360 tablet, Refills 1 Tot. Refills 1, [facility] #[id number] Start Date: 05/15/19 Status: Ordered levothyroxine 0.075 [...] 1 capsule = 100 mg, By Mouth, 2 times a day, for 5 days, # 10 capsule, 0 Refills, Acute 09/18/19 13:01:00 EDT, 09/13/19 13:01:00 EDT, Capsule, [facility] #49976, 162.56, cm, 08/17/19 16:32:00 EST, Height, 94.4, kg, 06/05/19 9:38:00 EST, Dry... Start Date: 09/13/19 Stop Date: 09/18/19 Status: Ordered Macrobid macrocrystals-monohydrate 100 mg oral [...] 02/14/20 15:53:00 EDT, 08/18/19 15:53:00 EST, Tablet, [facility] #95815, 162.56, cm, 08/17/19 16:32:00 EST, Height, 94.4, [...] 0 Refills, Maintenance, 04/23/16 10:07:54 Start Date: 11/10/16 Status: Ordered omeprazole 20mg omeprazole 20mg, Refills 0, Maintenance, 12/26/18 10:00:30 EDT, Compound Start Date: 12/26/18 Status: Ordered trimethoprim 100 mg oral tablet 1 tablet = 100 mg, By Mouth, Daily at bedtime, start after completing nitrofurantoin, # 30 tablet, 5 Refills, Acute 03/14/20 13:01:00 EDT, 09/13/19 13:01:00 EDT, [facility] #20602, 162.56, cm, 08/17/19 16:32:00 EST, Height, 94.4, kg, ... Start Date: 09/13/19 Stop Date: 03/14/20 Status: Ordered Vitamin B Complex oral tablet, [...]
--- OUTSIDE RECORDS SUMMARY | 2022-11-22 21:26 | XMS_ITS | Continuity of Care Document ---
Author Name Unknown Organization [facility] Andi Campbell [email or web address] Address [address], [address] [place] [address]- Care Team Providers Care Surgical Services Director Name Role Phone Betito OSORIO, Debi Lizama Primary Care Physician [phone] [place] [facility] [place]s): 08/07/19 - 10/07/19 [email or web address] [address], [address]th [place] [address]- Attending Physician: Francesca Larry MD Admitting Physician: [...] Vacc (oldterm) 5 08/12/09 Given 1Location History: retirement 2Result Comment: [06/04/2016] donna 3Result Comment: [04/08/2015] L&C 4Admin Note: [facility] 5Admin Note: DR. PASTOR, [facility] amLODIPine 10 mg oral tablet 10 mg, 1, tablet, By Mouth, Daily, # 90 tablet, Refills 3, Tot. Refills 3, Maintenance, 04/13/19 15:01:39 EDT, Route to Pharmacy Electronically, [id number], [facility] #[id number] Start Date: 04/13/19 Status: Ordered atenolol 100 mg oral tablet 1 tablet = 100 mg, By Mouth, 2 times a day, 0 Refills, Maintenance, 10/05/16 9:40:42 Start Date: 10/05/16 Stop Date: 11/07/16 Status: Ordered atorvastatin 20 mg oral tablet 1 tablet = 20 mg, By Mouth, Daily, # 90 tablet, 3 Refills, Maintenance, 09/20/19 11:46:00 EDT, Tablet, [facility] #16967, 162.56, cm, 08/17/19 16:32:00 EST, Height, 94.4, kg, 06/05/19 9:38:00 EST, Dry Weight Start Date: 09/20/19 Status: Ordered Augmentin 500 mg-125 mg oral tablet 1 tablet, By Mouth, Every 12 hours, for 7 days, # 14 tablet, 0 Refills, Acute 10/09/19 9:43:00 EDT,10/02/19 9:43:00 EDT, Tablet, [facility] #[id number], 162.56, cm, 08/17/19 16:32:00 EST, Height, 94.4, kg, 06/05/19 9:38:00 EST, Dry Weight Start Date: 10/02/19 Stop Date: 10/09/19 Status: Ordered baclofen 10 mg oral tablet 20 mg, 2, tablet, By Mouth, Daily, # 180 tablet, Refills 3, Tot. Refills 3, Maintenance, 12/29/18 10:23:44 EDT, Route to Pharmacy Electronically, [id number], [facility] [id number] Start Date: 12/29/18 Stop Date: 12/24/19 Status: [...] 2 Refills, Maintenance, 08/18/19 13:10:00 EST, Tablet, [facility] #25017, 162.56, cm, 08/17/19 16:3... Start Date: 08/18/19 Status: Ordered fluticasone 50 mcg/inh nasal spray 1 sprays, Nares, Both, 2 times a day, # 1 each, 5 Refills, Maintenance, [place] Start Date: 03/15/13 Stop Date: 09/11/13 Status: Ordered furosemide 20 mg oral tablet 40 mg, 2, tablet, By Mouth, Daily, # 180 tablet, Refills 3, Tot. Refills 3, Maintenance, 03/24/19 8:27:15 EDT, Route to Pharmacy Electronically, [id number], [facility] #[id number] Start Date: 03/24/19 Stop Date: 03/18/20 Status: [...] supp, 1 Refills, Maintenance, 06/05/19 11:07:00 EST, [facility] #65074, 162.56, cm, 06/05/19 9:38:00EST, Height, 94.4, kg, [...] 09/19/19 7:36:00 EDT, Route to Pharmacy Electronically, [facility] #[id number], 162.56, cm, 08/17/19 16:32:00 EST, Height, 94.4, [...] 02/14/20 15:53:00 EDT, 08/18/19 15:53:00 EST, Tablet, [facility] #37861, 162.56, cm, 08/17/19 16:32:00 EST, Height, 94.4, [...] Acute 03/14/20 13:01:00 EDT, 09/13/19 13:01:00 EDT, [facility] #88634, 162.56, cm, 08/17/19 16:32:00 EST, Height, 94.4, [...]
--- OUTSIDE RECORDS SUMMARY | 2022-11-22 21:26 | XMS_ITS | Continuity of Care Document ---
Author Name Unknown Organization [facility] Anita Intale [employer] Address [address], [address]t [place] [address]- Care Team Providers Care Occupational Therapist Assistant Name Role Phone Betito OSORIO, Debi Lizama Primary [facility] Phys[id number] - 10/22/22 [facility] [address] [facility] [place], [place] [address] Attending Physician: Rina Saravia MD Kallie Allergies, [...] Vacc (oldterm) 5 08/12/09 Given 1Admin Note: [facility] 2Location History: care home 3Result Comment: [06/04/2016] donna 4Result Comment: [04/08/2015] L&C 5Admin Note: DR. PASTOR, [place] Medications amLODIPine 10 mg oral tablet See Instructions, TAKE 1 TABLET BY MOUTH DAILY, # 90 each, 3 Refills, 09/24/21 10:21:00 EDT, [facility] #[id number], 168, cm, 09/24/21 10:10:00 EDT, Height Start [...] day, # 1 each, 5 Refills, Maintenance, [place] Start Date: 03/15/13 Stop Date: 09/11/13 Status: Ordered furosemide 40 mg oral tablet 1, tablet, By Mouth, Daily, # 90 tablet, Refills 3, Tot. Refills 3, Maintenance, 06/10/22 10:40:00 EST, Route to Pharmacy Electronically, [facility] #[id number], 168, cm, 06/10/22 10:25:00 EST, Height Start Date: 06/10/22 Status: Ordered ipratropium nasal 21 mcg/inh spray See Instructions, PRN Nasal Congestion, 1 spray each nostril BID, # 1 each, 4 Refills, Maintenance,01/01/22 16:02:00 EDT, [facility] #80011, Partial fill upon patient request if the [...] tablet, Refills 3, Route to Pharmacy Electronically, [facility] #69262, 168, cm, 03/27/21 14:00:00 EDT, Height, 94.4, [...] 3 Refills, Maintenance, 04/12/20 10:50:00 EDT, Tablet, [facility] #02220, 162.56, cm, 03/01/20 14:13:00 EDT, Height, 94.4, [...] each, 3 Refills, Maintenance, 02/04/22 10:46:00 EDT, [facility] #68360, 168, cm, 02/04/22 10:23:00 EDT, Height Start [...] 0 Refills, Maintenance, 10/30/19 13:41:00 EDT, Tablet, [facility] #56151, 162.56, cm, 08/17/19 16:32:00 EST, Height, 94.4, [...] Team Personnel Name: Marianne Perez RN Position: [facility] RN Member Role: Primary Care Nurse Name: Debi Cisse MD Position: [facility] Primary Care Physician Member Role: PCP Address: Address: [address] [place] [address] Adult [place], [place] [address] Name: Viola Gonzalez Position: [facility] Outreach Member Role: Lifetime Consulting Physician Care Team Related Persons Name: ITZEL GARCIA Name: AILYN ANDERSON Name: RAF NAVARRETE
--- OUTSIDE RECORDS SUMMARY | 2022-11-22 21:26 | XMS_ITS | Continuity of Care Document ---
Author Name Unknown Organization [facility] Address [address] [place] [address]- Care Team Providers Care Boat Joiner Name Role Phone Betito OSORIO, Debi Lizama Primary Care Physician Encounter [facility] Date(s): 07/29/22 - 08/28/22 [facility] [address] [place] [address]- [place] Allergies, Adverse Reactions, Alerts Substance Reaction [...] Vacc (oldterm) 5 08/12/09 Given 1Admin Note: [facility] 2Location History: [facility] 3Result Comment: [06/04/2016] donna 4Result Comment: [04/08/2015] L&C 5Admin Note: DR. PASTOR, [place] Medications amLODIPine 10 mg oral tablet See Instructions, TAKE 1 TABLET BY MOUTH DAILY, # 90 each, 3 Refills, 09/24/21 10:21:00 EDT, [facility] #[id number], 168, cm, 09/24/21 10:10:00 EDT, Height Start [...] Stop 09/19/22 10:25:00 EDT, 09/24/21 10:25:00 EDT, [facility] #23584, 168, cm, 09/24/21 10:10:00 EDT, Height Start [...] Acute 08/07/23 16:53:00 EST, 08/06/22 16:53:00EST, Ointment, [facility] #[id number], Partial fill upon patient request if the [...] day, # 1 each, 5 Refills, Maintenance, [place] Start Date: 03/15/13 Stop Date: 09/11/13 Status: Ordered furosemide 40 mg oral tablet 1, tablet, By Mouth, Daily, # 90 tablet, Refills 3, Tot. Refills 3, Maintenance, 06/10/22 10:40:00 EST, Route to Pharmacy Electronically, [facility] #[id number], 168, cm, 06/10/22 10:25:00 EST, Height Start Date: 06/10/22 Status: Ordered ipratropium nasal 21 mcg/inh spray See Instructions, PRN Nasal Congestion, 1 spray each nostril BID, # 1 each, 4 Refills, Maintenance,01/01/22 16:02:00 EDT, [facility] #30551, Partial fill upon patient request if the [...] Maintenance, use overnight and naps from [facility], 08/15/20 12:05:00 EST, Compound Start Date: [...] tablet, Refills 3, Route to Pharmacy Electronically, [facility] #[id number], 168, cm, 03/27/21 14:00:00 EDT, Height, 94.4, [...] 3 Refills, Maintenance, 04/12/20 10:50:00 EDT, Tablet, [facility] #74128, 162.56, cm, 03/01/20 14:13:00 EDT, Height, 94.4, [...] each, 3 Refills, Maintenance, 02/04/22 10:46:00 EDT, [facility] #45603, 168, cm, 02/04/22 10:23:00 EDT, Height Start [...] 0 Refills, Maintenance, 10/30/19 13:41:00 EDT, Tablet, [facility] #76537, 162.56, cm, 08/17/19 16:32:00 EST, Height, 94.4, [...] Team Personnel Name: Marianne Perez RN Position: [facility] RN Member Role: Primary Care Nurse Name: Debi Cisse MD Position: [facility] Primary Care Physician Member Role: PCP Address: Address: [address] [place] [address] Adult [place], [place] [address] Name: Viola Gonzalez Position: [facility] Outreach Member Role: Lifetime Consulting Physician Care Team Related Persons Name: ITZEL GARCIA Name: AILYN ANDERSON Name: RAF NAVARRETE
--- OUTSIDE RECORDS SUMMARY | 2022-11-22 21:26 | XMS_ITS | Continuity of Care Document ---
Author Name Unknown Organization [facility] Address [address] [place] [address]- Care Team Providers Care Life Enrichment Specialist Name Role Phone Betito OSORIO, Debi Lizama Primary Care Physician [place] [facility] [place] 03/24/20 [facility] [address] [address] Allergies, Adverse Reactions, Alerts Substance Reaction Severity [...] Vacc (oldterm) 5 08/12/09 Given 1Location History: longterm 2Result Comment: [06/04/2016] donna 3Result Comment: [04/08/2015] L&C 4Admin Note: [facility] 5Admin Note: DR. PASTOR, [facility] amLODIPine 10 mg oral tablet 1 tablet, By Mouth, Daily, # 90 tablet, 0 Refills, Maintenance, 01/28/20 8:43:00 EDT, [facility] #50160, 162.56, cm, 10/30/19 13:47:00 EDT, Height, 94.4, [...] 3 Refills, Maintenance, 09/20/19 11:46:00 EDT, Tablet, [facility] #85099, 162.56, cm, 08/17/19 16:32:00 EST, Height, 94.4, [...] 2 Refills, Maintenance, 08/18/19 13:10:00 EST, Tablet, [facility] #28253, 162.56, cm, 08/17/19 16:3... Start Date: 08/18/19 Status: Ordered fluticasone 50 mcg/inh nasal spray 1 sprays, Nares, Both, 2 times a day, # 1 each, 5 Refills, Maintenance, [place] Start Date: 03/15/13 Stop Date: 09/11/13 Status: Ordered furosemide 20 mg oral tablet 40 mg, 2, tablet, By Mouth, Daily, # 180 tablet, Refills 3, Tot. Refills 3, Maintenance, 03/11/20 14:33:00 EDT, Route to Pharmacy Electronically, [facility] #10810, 162.56, cm, 03/01/20 14:13:00 EDT, Height, 94.4, [...] 09/19/19 7:36:00 EDT, Route to Pharmacy Electronically, [facility] #03883, 162.56, cm, 08/17/19 16:32:00 EST, Height, 94.4, [...] 04/27/20 16:37:00 EST, 10/30/19 16:37:00 EDT, Tablet, [facility] #31475, 162.56, cm, 10/30/19 13:47:00 EDT, Height, 94.4, kg, 06/05/19 9:38:00 EST, Dry Weight Start Date: 10/30/19 Stop Date: 04/27/20 Status: Ordered methenamine hippurate 1 gm oral tablet 1 tablet = 1 Gm, By Mouth, 2 times a day, for 30 days, # 60 tablet, 5 Refills, Acute 10/24/20 16:37:00 EDT, 04/27/20 16:37:00 EST, Tablet, [facility] #58784, 162.56, cm, 03/01/20 14:13:00 EDT, Height, 94.4, [...] 0 Refills, Maintenance, 10/30/19 13:41:00 EDT, Tablet, [facility] #33594, 162.56, cm, 08/17/19 16:32:00 EST, Height, 94.4, [...]
--- OUTSIDE RECORDS SUMMARY | 2022-11-22 21:27 | XMS_ITS | Continuity of Care Document ---
Author Name Unknown Organization [facility] Address [address] [place] [address]- Care Team Providers Care Coding Clerks Supervisor Name Role Phone Debi Cisse MD Primary Care Physician [phone] Encounter 04/09/22 - 04/16/22 [facility] [address], [address] [place] [address]- Attending Physician: Vicky Fox NP Admitting Physician: Vicky Fox NP Referring Physician: Vicky Fox NP Allergies, Adverse Reactions, Alerts Substance Reaction Severity Status Other Food Allergy 1 SWELLING OF MOUTH Crab Active phenobarbital Active sulfa drugs Active Vasotec ULCERS IN [...] Vacc (oldterm) 5 08/12/09 Given 1Admin Note: [facility] 2Location History: residential 3Result Comment: [06/04/2016] donna 4Result Comment: [04/08/2015] L&C 5Admin Note: DR. PASTOR, [place] Medications amLODIPine 10 mg oral tablet See Instructions, TAKE 1 TABLET BY MOUTH DAILY, # 90 each, 3 Refills, 09/24/21 10:21:00 EDT, [facility] #38391, 168, cm, 09/24/21 10:10:00 EDT, Height Start [...] Stop 09/19/22 10:25:00 EDT, 09/24/21 10:25:00 EDT, [facility] #08242, 168, cm, 09/24/21 10:10:00 EDT, Height Start [...] day, # 1 each, 5 Refills, Maintenance, [place] Start Date: 03/15/13 Stop Date: 09/11/13 Status: [...] 1 each, 4 Refills, Maintenance,01/01/22 16:02:00 EDT, [facility] #65062, Partial fill upon patient request if the [...] 0, Maintenance, use overnight and naps from [facility], 08/15/20 12:05:00 EST, Compound Start [...] tablet, Refills 3, Route to Pharmacy Electronically, [facility] #32823, 168, cm, 03/27/21 14:00:00 EDT, Height, 94.4, [...] 3 Refills, Maintenance, 04/12/20 10:50:00 EDT, Tablet, [facility] #32652, 162.56, cm, 03/01/20 14:13:00 EDT, Height, 94.4, [...] each, 3 Refills, Maintenance, 02/04/22 10:46:00 EDT, [facility] #50631, 168, cm, 02/04/22 10:23:00 EDT, Height Start [...] 0 Refills, Maintenance, 10/30/19 13:41:00 EDT, Tablet, [facility] #[id number], 162.56, cm, 08/17/19 16:32:00 EST, Height, 94.4, [...] Personnel Name: Debi Cisse MD Address: Address: [address] [place] [address] Adult [place], [place] [address]
--- OUTSIDE RECORDS SUMMARY | 2022-11-22 21:27 | XMS_ITS | Continuity of Care Document ---
Author Name Unknown Organization [facility] Address Unknown Care Team Providers Care Manufacturing Technology Professor Name Role Phone Betito OSORIO, Debi M Primary Care Physician [phone] Encounter [facility] Date(s): 03/28/21 - 04/27/21 [facility] Attending Physician: Josy Morgan Admitting Physician: AdmJosy montero Referring Physician: Admtr, Ar8 Allergies, Adverse Reactions, [...] Vacc (oldterm) 5 08/12/09 Given 1Admin Note: [facility] 2Location History: assisted 3Result Comment: [06/04/2016] donna 4Result Comment: [04/08/2015] L&C 5Admin Note: DR. PASTOR, [facility] amLODIPine 10 mg oral tablet 1 tablet, By Mouth, Daily, # 90 tablet, 3 Refills, Maintenance, 04/12/20 10:49:00 EDT, [facility] #[id number], 162.56, cm, 03/01/20 14:13:00 EDT, Height, 94.4, kg, 06/05/19 9:38:00 EST, Dry Weight Start Date: 04/12/20 Status: Ordered atenolol 100 mg oral tablet 1 tablet = 100 mg, By Mouth, 2 times a day, 0 Refills, Maintenance, 10/05/16 9:40:42 Start Date: 10/05/16 Stop Date: 11/07/16 Status: Ordered atorvastatin 20 mg oral tablet 1 tablet, By Mouth, Daily, # 90 tablet, 1 Refills, [facility] #[id number], 168, cm, 11/13/20 13:18:00 EDT, Height, 94.4, [...] day, # 1 each, 5 Refills, Maintenance, [place] Start Date: 03/15/13 Stop Date: 09/11/13 Status: Ordered furosemide 20 mg oral tablet 40 mg, 2, tablet, By Mouth, Daily, # 180 tablet, Refills 3, Tot. Refills 3, Maintenance, 03/11/20 14:33:00 EDT, Route to Pharmacy Electronically, [facility] #[id number], 162.56, cm, 03/01/20 14:13:00 EDT, Height, 94.4, kg, 06/05/19 9:38:00 EST, D... Start Date: 03/11/20 Stop Date: 03/06/21 Status: Ordered ipratropium nasal 21 mcg/inh spray See Instructions, PRN Nasal Congestion, 1 spray each nostril BID, # 1 each, 4 Refills, Maintenance,07/17/20 12:08:00 EST, [facility] #[id number], Partial fill upon patient request if the [...] tablet, Refills 3, Route to Pharmacy Electronically, [facility] #[id number], 168, cm, 03/27/21 14:00:00 EDT, Height, 94.4, [...] 3 Refills, Maintenance, 04/12/20 10:50:00 EDT, Tablet, [facility] #00372, 162.56, cm, 03/01/20 14:13:00 EDT, Height, 94.4, [...] 1 TABLET BY MOUTH TWICE DAILY, # 60 tablet, 0 Refills, [facility] #04660, 168, cm, 03/27/21 14:00:00 EDT, Height, 94.4, kg, 06/05/19 9:38:00 EST, Dry Weight Start Date: 04/01/21 Status: Ordered MiraLax Powder = 17 Gm, [...] 0 Refills, Maintenance, 10/30/19 13:41:00 EDT, Tablet, [facility]89147, 162.56, cm, 08/17/19 16:32:00 EST, Height, 94.4, [...]
--- OUTSIDE RECORDS SUMMARY | 2022-11-22 21:27 | XMS_ITS | Continuity of Care Document ---
Author Name Unknown Organization [facility] Address [address] [place] [address]- Care Team Providers Care General Medical Practitioner Name Role Phone Betito OSORIO, Debi Lizama Primary Care Physician Encounter [facility] NBR [id number] Date(s): 12/11/20 - 12/18/20 [facility] [address] [address]- Encounter Diagnosis Restless leg syndrome(Discharge Diagnosis) - 12/11/20 Idiopathic peripheral neuropathy(Discharge Diagnosis) - 12/11/20 Attending Physician: Hodan Keating NP Allergies, Adverse Reactions, Alerts Substance Reaction [...] (oldterm) 5 08/12/09 Given 1Admin Note: [facility] 2Location History: correction 3Result Comment: [06/04/2016] donna 4Result Comment: [04/08/2015] L&C 5Admin Note: DR. PASTOR, [place] Medications amLODIPine 10 mg oral tablet 1 tablet, By Mouth, Daily, # 90 tablet, 3 Refills, Maintenance, 04/12/20 10:49:00 EDT, [facility] #[id number], 162.56, cm, 03/01/20 14:13:00 EDT, Height, 94.4, [...] 1 Refills, Maintenance, 09/07/20 9:48:00 EDT, Tablet, [facility] #17320, 168, cm, 05/23/20 10:09:00 EST, Height, 94.4, [...] 2 Refills, Maintenance, 08/18/19 13:10:00 EST, Tablet, [facility] #[id number], 162.56, cm, 08/17/19 16:3... Start Date: 08/18/19 Status: Ordered fluticasone 50 mcg/inh nasal spray 1 sprays, Nares, Both, 2 times a day, # 1 each, 5 Refills, Maintenance, [place] Start Date: 03/15/13 Stop Date: 09/11/13 Status: Ordered furosemide 20 mg oral tablet 40 mg, 2, tablet, By Mouth, Daily, # 180 tablet, Refills 3, Tot. Refills 3, Maintenance, 03/11/20 14:33:00 EDT, Route to Pharmacy Electronically, [facility] #41002, 162.56, cm, 03/01/20 14:13:00 EDT, Height, 94.4, kg, 06/05/19 9:38:00 EST, D... Start Date: 03/11/20 Stop Date: 03/06/21 Status: Ordered ipratropium nasal 21 mcg/inh spray See Instructions, PRN Nasal Congestion, 1 spray each nostril BID, # 1 each, 4 Refills, Maintenance,07/17/20 12:08:00 EST, [facility] #[id number], Partial fill upon patient request if the [...] 0, Maintenance[facility] 08/15/20 12:05:00 EST, Compound Start Date: [...] 10/07/20 8:20:00 EDT, Route to Pharmacy Electronically, [facility] #[id number], 168, cm, 05/23/20 10:09:00 EST, Height, 94.4, [...] 3 Refills, Maintenance, 04/12/20 10:50:00 EDT, Tablet, [facility] #87472, 162.56, cm, 03/01/20 14:13:00 EDT, Height, 94.4, [...] 0 Refills, Maintenance, 10/30/19 13:41:00 EDT, Tablet, [facility] #05347, 162.56, cm, 08/17/19 16:32:00 EST, Height, 94.4, [...] heral Neuropathy(Confirmed) 09/02/10 Active Urinary incontinence(Confirmed) Active Diagnosis Diagnosis Type Effective Dates Health Status Clinical Service Informant Restless leg syndrome Discharge Diagnosis 12/11/20 Idiopathic peripheral neuropathy Discharge Diagnosis 12/11/20 Social History Social History Type Response Smoking Status Former smoker entered on: 10/04/14 Sex
--- OUTSIDE RECORDS SUMMARY | 2022-11-22 21:27 | XMS_ITS | Continuity of Care Document ---
Author Name Unknown Organization [facility] Address [address] [place] [address]- Care Team Providers Care Sweet Potato Disintegrator Name Role Phone Betito OSORIO, Debi Lizama Primary Care Physician Encounter [facility] NBR [id number] Date(s): 05/14/22 - 06/13/22 [facility] [address] [place] [address]- [place] Allergies, Adverse Reactions, Alerts Substance Reaction [...] Vacc (oldterm) 5 08/12/09 Given 1Admin Note: [facility] 2Location History: fpc 3Result Comment: [06/04/2016] donna 4Result Comment: [04/08/2015] L&C 5Admin Note: DR. PASTOR, [place] Medications amLODIPine 10 mg oral tablet See Instructions, TAKE 1 TABLET BY MOUTH DAILY, # 90 each, 3 Refills, 09/24/21 10:21:00 EDT, [facility] #25506, 168, cm, 09/24/21 10:10:00 EDT, Height Start [...] Stop 09/19/22 10:25:00 EDT, 09/24/21 10:25:00 EDT, [facility] #50993, 168, cm, 09/24/21 10:10:00 EDT, Height Start [...] day, # 1 each, 5 Refills, Maintenance, [place] Start Date: 03/15/13 Stop Date: 09/11/13 Status: Ordered furosemide 40 mg oral tablet 1, tablet, By Mouth, Daily, # 90 tablet, Refills 3, Tot. Refills 3, Maintenance, 06/10/22 10:40:00 EST, Route to Pharmacy Electronically, [facility] #69042, 168, cm, 06/10/22 10:25:00 EST, Height Start Date: 06/10/22 Status: Ordered ipratropium nasal 21 mcg/inh spray See Instructions, PRN Nasal Congestion, 1 spray each nostril BID, # 1 each, 4 Refills, Maintenance,01/01/22 16:02:00 EDT, [facility] #59496, Partial fill upon patient request if the [...] use overnight and naps from [facility], 08/15/20 12:05:00 EST, Compound Start Date: 08/15/20 [...] tablet, Refills 3, Route to Pharmacy Electronically, [facility] #28123, 168, cm, 03/27/21 14:00:00 EDT, Height, 94.4, [...] 3 Refills, Maintenance, 04/12/20 10:50:00 EDT, Tablet, [facility] #55875, 162.56, cm, 03/01/20 14:13:00 EDT, Height, 94.4, [...] each, 3 Refills, Maintenance, 02/04/22 10:46:00 EDT, [facility] #09689, 168, cm, 02/04/22 10:23:00 EDT, Height Start [...] 0 Refills, Maintenance, 10/30/19 13:41:00 EDT, Tablet, [facility] #67365, 162.56, cm, 08/17/19 16:32:00 EST, Height, 94.4, [...] Team Personnel Name: Marianne Perez RN Position: [facility] RN Member Role: Primary Care Nurse Name: Debi Cisse MD Position: [facility] Primary Care Physician Member Role: PCP Address: Address: [address] [place] [address] Adult [place], [place] [address] Name: Viola Gonzalez Position: [facility] Outreach Member Role: Lifetime Consulting Physician Care Team Related Persons Name: ITZEL GARCIA Name: AILYN ANDERSON Name: RAF NAVARRETE
--- OUTSIDE RECORDS SUMMARY | 2022-11-22 21:27 | XMS_ITS | Continuity of Care Document ---
Author Name Unknown Organization [facility] Address [address] [place] [address]- Care Team Providers Care Gauntlet Pairer Name Role Phone Debi Cisse MD Primary Care Physician Encounter [facility] NBR [id number] Date(s): 10/30/22 - 11/06/22 [facility] [address] [place] [address]- Attending Physician: Debi Cisse MD Allergies, Adverse Reactions, Alerts Substance Reaction Severity Status phenobarbital Active sulfa drugs Active Active Vasotec ULCERS IN MOUTH Active Lobster BLOODY STOOLS Active Other Food [...] (oldterm) 5 08/12/09 Given 1Admin Note: [facility] 2Location History: snf 3Result Comment: [06/04/2016] donna 4Result Comment: [04/08/2015] L&C 5Admin Note: DR. PASTOR, [place] Medications amLODIPine 10 mg oral tablet See Instructions, TAKE 1 TABLET BY MOUTH DAILY, # 90 each, 3 Refills, 09/24/21 10:21:00 EDT, [facility] #79005, 168, cm, 09/24/21 10:10:00 EDT, Height Start [...] day, # 1 each, 5 Refills, Maintenance, [place] Start Date: 03/15/13 Stop Date: 09/11/13 Status: Ordered furosemide 40 mg oral tablet 1, tablet, By Mouth, Daily, # 90 tablet, Refills 3, Tot. Refills 3, Maintenance, 06/10/22 10:40:00 EST, Route to Pharmacy Electronically, [facility] #13015, 168, cm, 06/10/22 10:25:00 EST, Height Start Date: 06/10/22 Status: Ordered ipratropium nasal 21 mcg/inh spray See Instructions, PRN Nasal Congestion, 1 spray each nostril BID, # 1 each, 4 Refills, Maintenance,01/01/22 16:02:00 EDT, [facility] #72867, Partial fill upon patient request if the [...] tablet, Refills 3, Route to Pharmacy Electronically, [facility] #50801, 168, cm, 03/27/21 14:00:00 EDT, Height, 94.4, [...] 3 Refills, Maintenance, 04/12/20 10:50:00 EDT, Tablet, [facility] #17717, 162.56, cm, 03/01/20 14:13:00 EDT, Height, 94.4, [...] each, 3 Refills, Maintenance, 02/04/22 10:46:00 EDT, [facility] #81111, 168, cm, 02/04/22 10:23:00 EDT, Height Start [...] 0 Refills, Maintenance, 10/30/19 13:41:00 EDT, Tablet, [facility] #86414, 162.56, cm, 08/17/19 16:32:00 EST, Height, 94.4, [...] oldest [Reference Range]: 1 Height 168 cm (10/30/22 4:18 PM) Oxygen Saturation [94-100 %] 96 % (10/30/22 4:18 PM) Pulse Rate [55-90 bpm] 77 bpm (10/30/22 4:18 PM) Blood Pressure [90-138/55-84 mm Hg] 118/ 62mm Hg (10/30/22 4:18 PM) Temperature [96.8-100.4 DegF] 97.3 DegF (10/30/22 4:18 PM) Liters per Minute 0 L/min (10/30/22 4:18 PM) Mode of Delivery (Oxygen) Room air (10/30/22 4:18 PM) Blood pressure sites Arm, left (10/30/22 4:18 PM) Temperature Route Temporal (10/30/22 4:18 PM) Social History Social History Type Response Smoking Status Former smoker entered on: 10/04/14 Sex Note * Nanci Lucia: VERIFY, PERFORM, SIGN Event Display: Patient Education/Instruction Authored Date: [id number] [facility] *BMP [facility] Bltn Clinical Summary Name RAF BRONSON Age 77 Years 1945 PCP Betito OSORIO, Debi [id number] Date 10/30/2022 16:16:00 Additional Instructions: Scheduled Appointments?? Future Appointments ?*[facility] ?[address]??[place],??[place],??[address] ?Phone:??--?Fax:??-- ?Appt. Date:??11/24/2022?1:00 PM ?Scheduled Provider:??Rani OSORIO, [...] twice a day. Refills: 0. Next Dose: BusPIRone (busPIRone 5 mg oral [...] Dose: No Longer Take the Following Medications Atenolol (atenolol 100 mg oral tablet) 1 tab(s) Oral twice a day for 30 Days. Allergy Info:?? Other Food Allergy; Shrimp; Lobster; Dust; Vasotec; ; sulfa drugs; phenobarbital Medications Given This Visit Future Orders ?No future orders Vital Signs Height 168 cm Weight BMI Blood Pressure 118 mm Hg/62 mm Hg Temperature 97.3 DegF Pulse Rate 77 bpm Respiratory Rate 02 Sat Mode of Delivery 96 %/Room air You can now view a summary of your hospital visit from the comfort of your home through a free online portal called [facility]. [facility] is a website that allows you to securely view your medical information including discharge summary, medications and follow-up visits. ??You can alsosend a secure electronic message to your doctor???s office to request appointments, renew medications or just ask a question. You can enroll at [email or web address] or register during your next office visit. [...] primary care provider, you may find a [facility] provider by calling [facility] Planwise Link at [phone]. For information about the plan of care [...] Team Personnel Name: Marianne Perez RN Position: [facility] RN Member Role: Primary Care Nurse Name: Debi Cisse MD Position: [facility] Physician - Primary Care Member Role: PCP Address: Address: [address] [place] [address] [place] [address]- Name: Viola Gonzalez Position: [facility] Outreach Member Role: Lifetime Consulting Physician Care Team Related Persons Name: ITZEL GARCIA Name: AILYN ANDERSON Name: RAF NAVARRETE
--- OUTSIDE RECORDS SUMMARY | 2022-11-22 21:27 | XMS_ITS | Continuity of Care Document ---
Author Name Unknown Organization [facility] Address [address] [place] [address]- Care Team Providers Care Music Therapist [employer] Name Role Phone Betito OSORIO, Debi M Primary Care Physician Encounter [facility] Date(s): 06/30/22 - 07/30/22 [facility] [address] [place] [address]- [place] Allergies, Adverse Reactions, Alerts Substance Reaction Severity Status phenobarbital Active Active Shrimp MOUTH SWELLED Active Other Food [...] (oldterm) 5 08/12/09 Given 1Admin Note: [facility] 2Location History: [facility] 3Result Comment: [06/04/2016] donna 4Result Comment: [04/08/2015] L&C 5Admin Note: DR. PASTOR, [place] Medications amLODIPine 10 mg oral tablet See Instructions, TAKE 1 TABLET BY MOUTH DAILY, # 90 each, 3 Refills, 09/24/21 10:21:00 EDT, [facility] #[id number], 168, cm, 09/24/21 10:10:00 EDT, Height Start [...] Stop 09/19/22 10:25:00 EDT, 09/24/21 10:25:00 EDT, [facility] #65722, 168, cm, 09/24/21 10:10:00 EDT, Height Start [...] day, # 1 each, 5 Refills, Maintenance, [place] Start Date: 03/15/13 Stop Date: 09/11/13 Status: Ordered furosemide 40 mg oral tablet 1, tablet, By Mouth, Daily, # 90 tablet, Refills 3, Tot. Refills 3, Maintenance, 06/10/22 10:40:00 EST, Route to Pharmacy Electronically, [facility] #14396, 168, cm, 06/10/22 10:25:00 EST, Height Start Date: 06/10/22 Status: Ordered ipratropium nasal 21 mcg/inh spray See Instructions, PRN Nasal Congestion, 1 spray each nostril BID, # 1 each, 4 Refills, Maintenance,01/01/22 16:02:00 EDT, [facility] #[id number], Partial fill upon patient request if the [...] use overnight and naps from [facility], 08/15/20 12:05:00 EST, Compound Start Date: 08/15/20 [...] tablet, Refills 3, Route to Pharmacy Electronically, [facility] #77619, 168, cm, 03/27/21 14:00:00 EDT, Height, 94.4, kg, 06/05/19 9:38:00 EST, DryWeight Start Date: 04/04/21 Status: Ordered levothyroxine 0.075 mg oral tablet 0 Refills, Maintenance, 08/15/19 15:34:00 EST Start Date: 08/15/19 Status: Ordered lidocaine 0.5% topical gel 1 application, Topically, 3 times a day, # 240 Gm, 0 Refills, Acute 07/29/23 16:14:00 EST, 07/28/2315:14:00 EST, Gel, [facility] #34878, Partial fill upon patient request if the prescription is for a schedule II opioid drug., 1 application... Start Date: 07/28/22 Stop Date: 07/29/23 Status: Ordered lidocaine 4% topical cream 1 application, Topically, 3 times a day, # 30 Gm, 1 Refills, Acute 07/30/23 15:31:00 EST, 07/29/22 15:31:00 EST, Cream, [facility] #[id number], Partial fill upon patient request if the prescription is for a schedule II opioid drug., 1 application... Start Date: 07/29/22 Stop Date: 07/30/23 Status: Ordered Lorazepam = 0.5 mg, By Mouth, prn, 0 Refills, Maintenance, 08/15/19 15:31:00 EST Start Date: 08/15/19 Status: Ordered losartan 100 mg oral tablet 1 tablet = 100 mg, By Mouth, Daily, To replace valsartan, # 90 tablet, 3 Refills, Maintenance, 04/12/20 10:50:00 EDT, Tablet, [facility] #02222, 162.56, cm, 03/01/20 14:13:00 EDT, Height, 94.4, [...] each, 3 Refills, Maintenance, 02/04/22 10:46:00 EDT, [facility] #33951, 168, cm, 02/04/22 10:23:00 EDT, Height Start Date: 02/04/22 Status: Ordered MiraLax Powder = 17 Gm, By Mouth, 2 times a day, 0 Refills, Maintenance, 05/26/10 15:29:33 EST Start Date: 05/26/10 Status: Ordered Multivitamin By Mouth, Daily, 0 Refills, Maintenance, 08/01/14 16:38:28 Start Date: 08/01/14 Status: Ordered Nasacort Allergy 24HR 2 sprays, Daily, 0 Refills, Maintenance, 04/23/16 10:07:54 Start Date: 04/23/16 Status: Ordered nitrofurantoin macrocrystals-monohydrate 100 mg oral capsule 1 capsule = 100 mg, By Mouth, 2 times a day, for 7 days, # 14 capsule, 0 Refills, Acute 08/04/22 9:14:00 EST, 07/28/22 9:14:00 EST, Capsule, [facility] #[id number], Partial fill upon patient request if the prescription is for a schedule II opioid... Start Date: 07/28/22 Stop Date: 08/04/22 Status: Ordered omeprazole 20mg omeprazole 20mg, By [...] 0 Refills, Maintenance, 10/30/19 13:41:00 EDT, Tablet, [facility] #07164, 162.56, cm, 08/17/19 16:32:00 EST, Height, 94.4, [...] Team Personnel Name: Marianne Perez RN Position: [facility] RN Member Role: Primary Care Nurse Name: Debi Cisse MD Position: [facility] Primary Care Physician Member Role: PCP Address: Address: [address] [place] [address] Adult [place], [place] [address] Name: Viola Gonzalez Position: [facility] Outreach Member Role: Lifetime Consulting Physician Care Team Related Persons Name: ITZEL GARCIA Name: AILYN ANDERSON Name: RAF NAVARRETE
--- OUTSIDE RECORDS SUMMARY | 2022-11-22 21:27 | XMS_ITS | Continuity of Care Document ---
Author Name Unknown Organization [facility] Address [address] [place] [address]- Care Team Providers Care Flatlock Sewing Machine Operator Name Role Phone Betito OSORIO, Debi Lizama Primary Care Physician Encounter [facility] Date(s): 07/19/20 - 08/18/20 [facility] [address] [address]- Allergies, Adverse Reactions, Alerts Substance Reaction Severity [...] Vacc (oldterm) 5 08/12/09 Given 1Admin Note: [facility] 2Location History: jail 3Result Comment: [06/04/2016] donna 4Result Comment: [04/08/2015] L&C 5Admin Note: DR. PASTOR, [place] Medications amLODIPine 10 mg oral tablet 1 tablet, By Mouth, Daily, # 90 tablet, 3 Refills, Maintenance, 04/12/20 10:49:00 EDT, [facility] #20661, 162.56, cm, 03/01/20 14:13:00 EDT, Height, 94.4, [...] 3 Refills, Maintenance, 09/20/19 11:46:00 EDT, Tablet, [facility]81346, 162.56, cm, 08/17/19 16:32:00 EST, Height, 94.4, [...] 2 Refills, Maintenance, 08/18/19 13:10:00 EST, Tablet, [facility] #60255, 162.56, cm, 08/17/19 16:3... Start Date: 3/6/20 Status: Ordered fluticasone 50 mcg/inh nasal spray 1 sprays, Nares, Both, 2 times a day, # 1 each, 5 Refills, Maintenance, [place] Start Date: 03/15/13 Stop Date: 09/11/13 Status: Ordered furosemide 20 mg oral tablet 40 mg, 2, tablet, By Mouth, Daily, # 180 tablet, Refills 3, Tot. Refills 3, Maintenance, 03/11/20 14:33:00 EDT, Route to Pharmacy Electronically, [facility] #21526, 162.56, cm, 03/01/20 14:13:00 EDT, Height, 94.4, [...] 1 each, 4 Refills, Maintenance,07/17/20 12:08:00 EST, [facility] #25477, Partial fill upon patient request if the [...] 05/13/20 10:26:00 EST, Route to Pharmacy Electronically, [facility] #46612, 162.56, cm, 04/15/20 14:37:00 EST, Height, 94.4, [...] 3 Refills, Maintenance, 04/12/20 10:50:00 EDT, Tablet, [facility] #88924, 162.56, cm, 03/01/20 14:13:00 EDT, Height, 94.4, [...] 10/24/20 16:37:00 EDT, 04/27/20 16:37:00 EST, Tablet, [facility] #46142, 162.56, cm, 04/15/20 14:37:00 EST, Height, 94.4, [...] 0 Refills, Maintenance, 10/30/19 13:41:00 EDT, Tablet, [facility] #73279, 162.56, cm, 08/17/19 16:32:00 EST, Height, 94.4, kg, 06/05/19 9:38:00 EST, Dry Weight Start Date: 10/30/19 Status: Ordered Vitamin D3 By Mouth, Daily, 0 Refills, Maintenance, 08/15/19 15:33:00 EST Start Date: 3/3/20 Status: Ordered Zoloft 100 mg oral tablet [...]
--- OUTSIDE RECORDS SUMMARY | 2022-11-22 21:27 | XMS_ITS | Continuity of Care Document ---
Author Name Unknown Organization [facility] Address [address], [address] [place] [address]- Care Team Providers Care Napkin Machine Operator Name Role Phone Betito OSORIO, Debi Lizama Primary Care Physician Encounter [facility] Date(s): 02/01/20 - 03/02/20 [facility] [address] [place] [address]- [facility] Allergies, Adverse Reactions, Alerts Substance Reaction [...] Vacc (oldterm) 5 08/12/09 Given 1Location History: snf 2Result Comment: [06/04/2016] donna 3Result Comment: [04/08/2015] L&C 4Admin Note: [facility] 5Admin Note: DR. PASTOR, [facility] amLODIPine 10 mg oral tablet 1 tablet, By Mouth, Daily, # 90 tablet, 0 Refills, Maintenance, 01/28/20 8:43:00 EDT, [facility] #96745, 162.56, cm, 10/30/19 13:47:00 EDT, Height, 94.4, [...] 3 Refills, Maintenance, 09/20/19 11:46:00 EDT, Tablet, [facility] #37872, 162.56, cm, 08/17/19 16:32:00 EST, Height, 94.4, [...] Acute 03/31/20 13:44:00 EDT, 10/30/19 13:42:00 EDT, [facility] #45101, 162.56, cm, 08/17/19 16:32:00 EST, Height, 94.4, [...] 2 Refills, Maintenance, 08/18/19 13:10:00 EST, Tablet, [facility] #47034, 162.56, cm, 08/17/19 16:3... Start Date: 08/18/19 [...] 03/24/19 8:27:15 EDT, Route to Pharmacy Electronically, [id number], [facility] #[id number] Start Date: 03/24/19 Stop Date: 03/18/20 Status: [...] supp, 1 Refills, Maintenance, 02/01/20 9:41:00 EDT, [facility], 162.56, cm, 01/29/20 10:10:00 EDT, Height, 94.4, kg, 06/05/19 9:38:00 EST, Dry Weight Start Date: 02/01/20 Status: Ordered L Amrko Knee CHECK knee [...] 09/19/19 7:36:00 EDT, Route to Pharmacy Electronically, [facility] #44103, 162.56, cm, 08/17/19 16:32:00 EST, Height, 94.4, kg, 06/05/19 9:38:00 EST, D... Start Date: 09/19/19 Status: Ordered levoFLOXacin 750 mg oral tablet 1 tablet = 750 mg, By Mouth, Every 24 hours, for 7 days, # 7 tablet, 0 Refills, Acute 03/08/20 14:41:00 EDT, 03/01/20 14:41:00 EDT, Tablet, [facility] #70029, 162.56, cm, 03/01/20 14:13:00 EDT, Height, 94.4, kg, 06/05/19 9:38:00 EST, Dry Weight Start Date: 03/01/20 Stop Date: 03/08/20 Status: Ordered levothyroxine 0.075 mg oral tablet [...] 04/27/20 16:37:00 EST, 10/30/19 16:37:00 EDT, Tablet, [facility] #71603, 162.56, cm, 10/30/19 13:47:00 EDT, Height, 94.4, [...] 0 Refills, Maintenance, 10/30/19 13:41:00 EDT, Tablet, [facility] #00014, 162.56, cm, 08/17/19 16:32:00 EST, Height, 94.4, [...]
--- OUTSIDE RECORDS SUMMARY | 2022-11-22 21:27 | XMS_ITS | Continuity of Care Document ---
Author Name Unknown Organization [facility] Address [address] [place] [address]- Care Team Providers Care Remote Control Mirror Installer Name Role Phone Debi Cisse MD Primary Care Physician [phone] Encounter [facility] Date(s): 10/16/19 - 11/15/19 [facility] [address] [place] [address]- Attending Physician: Admtr, Ar8 Admitting Physician: Admtr, [...] Vacc (oldterm) 5 08/12/09 Given 1Location History: senior care 2Result Comment: [06/04/2016] donna 3Result Comment: [04/08/2015] L&C 4Admin Note: [facility] 5Admin Note: DR. PASTOR, [place] Medications amLODIPine 10 mg oral tablet 10 mg, 1, tablet, By Mouth, Daily, # 90 tablet, Refills 3, Tot. Refills 3, Maintenance, 04/13/19 15:01:39 EDT, Route to Pharmacy Electronically, [id number], [facility] #[id number] Start Date: 04/13/19 Status: Ordered atenolol 100 mg oral tablet 1 tablet = 100 mg, By Mouth, 2 times a day, 0 Refills, Maintenance, 10/05/16 9:40:42 Start Date: 10/05/16 Stop Date: 11/07/16 Status: Ordered atorvastatin 20 mg oral tablet 1 tablet = 20 mg, By Mouth, Daily, # 90 tablet, 3 Refills, Maintenance, 09/20/19 11:46:00 EDT, Tablet, [facility] #[id number], 162.56, cm, 08/17/19 16:32:00 EST, Height, 94.4, kg, 06/05/19 9:38:00 EST, Dry Weight Start Date: 09/20/19 Status: Ordered baclofen 10 mg oral tablet 20 mg, 2, tablet, By Mouth, Daily, # 180 tablet, Refills 3, Tot. Refills 3, Maintenance, 12/29/18 10:23:44 EDT, Route to Pharmacy Electronically, [id number], [facility] Start Date: 12/29/18 Stop Date: 12/24/19 Status: Ordered Calcium Barbonate 650mg Calcium Barbonate [...] Acute 03/31/20 13:44:00 EDT, 10/30/19 13:42:00 EDT, [facility] #44095, 162.56, cm, 08/17/19 16:32:00 EST, Height, 94.4, [...] 2 Refills, Maintenance, 08/18/19 13:10:00 EST, Tablet, [facility] #[id number], 162.56, cm, 08/17/19 16:3... Start Date: 08/18/19 Status: Ordered fluticasone 50 mcg/inh nasal spray 1 sprays, Nares, Both, 2 times a day, # 1 each, 5 Refills, Maintenance, [place] Start Date: 03/15/13 Stop Date: 09/11/13 Status: Ordered furosemide 20 mg oral tablet 40 mg, 2, tablet, By Mouth, Daily, # 180 tablet, Refills 3, Tot. Refills 3, Maintenance, 03/24/19 8:27:15 EDT, Route to Pharmacy Electronically, [id number], [facility] #[id number] Start Date: 03/24/19 Stop Date: 03/18/20 Status: [...] supp, 1 Refills, Maintenance, 06/05/19 11:07:00 EST, [facility] #60575, 162.56, cm, 06/05/19 9:38:00EST, Height, 94.4, kg, [...] 09/19/19 7:36:00 EDT, Route to Pharmacy Electronically, [facility] #01079, 162.56, cm, 08/17/19 16:32:00 EST, Height, 94.4, [...] 04/27/20 16:37:00 EST, 10/30/19 16:37:00 EDT, Tablet, [facility] #[id number], 162.56, cm, 10/30/19 13:47:00 EDT, Height, 94.4, [...] 04/23/16 10:07:54 Start Date: 04/23/16 Status: Ordered nystatin topical 876434 u/gm powder 1 application, Topically, 3 times a day, for 30 days, # 120 Gm, 1 Refills, Acute 12/26/19 10:17:00 EDT, 10/27/19 10:17:00 EDT, Powder, [facility] #07165, 1 application Topically 3 times a day,x30 days, 162.56, cm, 08/17/19 16:32:00 EST, [place]... Start Date: 10/27/19 Stop Date: 12/26/19 Status: Ordered omeprazole 20mg omeprazole 20mg, Refills [...] 0 Refills, Maintenance, 10/30/19 13:41:00 EDT, Tablet, [facility] #17155, 162.56, cm, 08/17/19 16:32:00 EST, Height, 94.4, [...]
--- OUTSIDE RECORDS SUMMARY | 2022-11-22 21:27 | XMS_ITS | Continuity of Care Document ---
Author Name Unknown Organization [facility] Address [address] [facility], [address] Floor, [address] [place] [address]- Care Team Providers Care Marketing Content Manager Name Role Phone Betito OSORIO, Debi Lizama Primary Care Physician [place] [facility] [place]20 [facility] [address], [address]rd Floor, [address] [place] [address]- Allergies, Adverse Reactions, Alerts Substance Reaction Severity [...] Vacc (oldterm) 5 08/12/09 Given 1Admin Note: [facility] 2Location History: half-way 3Result Comment: [06/04/2016] donna 4Result Comment: [04/08/2015] L&C 5Admin Note: DR. PASTOR, [place] Medications amLODIPine 10 mg oral tablet 1 tablet, By Mouth, Daily, # 90 tablet, 3 Refills, Maintenance, 04/12/20 10:49:00 EDT, [facility] #59109, 162.56, cm, 03/01/20 14:13:00 EDT, Height, 94.4, [...] 1 Refills, Maintenance, 09/07/20 9:48:00 EDT, Tablet, [facility] #[id number], 168, cm, 05/23/20 10:09:00 EST, Height, 94.4, [...] 2 Refills, Maintenance, 08/18/19 13:10:00 EST, Tablet, [facility] #[id number], 162.56, cm, 08/17/19 16:3... Start Date: 08/18/19 Status: Ordered fluticasone 50 mcg/inh nasal spray 1 sprays, Nares, Both, 2 times a day, # 1 each, 5 Refills, Maintenance, [place] Start Date: 03/15/13 Stop Date: 09/11/13 Status: Ordered furosemide 20 mg oral tablet 40 mg, 2, tablet, By Mouth, Daily, # 180 tablet, Refills 3, Tot. Refills 3, Maintenance, 03/11/20 14:33:00 EDT, Route to Pharmacy Electronically, [facility] #[id number], 162.56, cm, 03/01/20 14:13:00 EDT, Height, 94.4, kg, 06/05/19 9:38:00 EST, D... Start Date: 03/11/20 Stop Date: 03/06/21 Status: Ordered ipratropium nasal 21 mcg/inh spray See Instructions, PRN Nasal Congestion, 1 spray each nostril BID, # 1 each, 4 Refills, Maintenance,07/17/20 12:08:00 EST, [facility] #[id number], Partial fill upon patient request if the [...] 0, Maintenance, use overnight and naps from [facility], 08/15/20 12:05:00 EST, Compound Start Date: [...] 10/07/20 8:20:00 EDT, Route to Pharmacy Electronically, [facility] #[id number], 168, cm, 05/23/20 10:09:00 EST, Height, 94.4, [...] 3 Refills, Maintenance, 04/12/20 10:50:00 EDT, Tablet, [facility] #[id number], 162.56, cm, 03/01/20 14:13:00 EDT, Height, 94.4, [...] 0 Refills, Maintenance, 10/30/19 13:41:00 EDT, Tablet, [facility] #42941, 162.56, cm, 08/17/19 16:32:00 EST, Height, 94.4, [...]
--- OUTSIDE RECORDS SUMMARY | 2022-11-22 21:27 | XMS_ITS | Continuity of Care Document ---
Author Name Unknown Organization [facility] Address [address] [facility], 4t [place] [address]- Care Team Providers Care Airplane Pilot Chief Name Role Phone Betito OSORIO, Debi Lizama Primary Care Physician [phone] [place] [facility] [place] 11/20/22 [facility] [address] [facility], 4th Floor [place], [place] [address] Attending Physician: Admwinston, Maury8 Admitting Physician: Admtr, Josy Referring Physician: Admtr, Ar8 Allergies, Adverse Reactions, Alerts Substance Reaction Severity Status Shrimp MOUTH SWELLED Active Other Food Allergy [...] Vacc (oldterm) 5 08/12/09 Given 1Admin Note: [facility] 2Location History: fpc 3Result Comment: [06/04/2016] donna 4Result Comment: [04/08/2015] L&C 5Admin Note: DR. PASTOR, [place] Medications amLODIPine 10 mg oral tablet See Instructions, TAKE 1 TABLET BY MOUTH DAILY, # 90 each, 3 Refills, 09/24/21 10:21:00 EDT, [facility] #[id number], 168, cm, 09/24/21 10:10:00 EDT, Height Start [...] day, # 1 each, 5 Refills, Maintenance, [place] Start Date: 03/15/13 Stop Date: 09/11/13 Status: Ordered furosemide 40 mg oral tablet 1, tablet, By Mouth, Daily, # 90 tablet, Refills 3, Tot. Refills 3, Maintenance, 06/10/22 10:40:00 EST, Route to Pharmacy Electronically, [facility] #[id number], 168, cm, 06/10/22 10:25:00 EST, Height Start Date: 06/10/22 Status: Ordered ipratropium nasal 21 mcg/inh spray See Instructions, PRN Nasal Congestion, 1 spray each nostril BID, # 1 each, 4 Refills, Maintenance,01/01/22 16:02:00 EDT, [facility] #[id number], Partial fill upon patient request if the [...] 0, Maintenance, use overnight and naps from [facility], 08/15/20 12:05:00 EST, Compound Start [...] tablet, Refills 3, Route to Pharmacy Electronically, [facility] #32584, 168, cm, 03/27/21 14:00:00 EDT, Height, 94.4, [...] 3 Refills, Maintenance, 04/12/20 10:50:00 EDT, Tablet, [facility] #15660, 162.56, cm, 03/01/20 14:13:00 EDT, Height, 94.4, [...] each, 3 Refills, Maintenance, 02/04/22 10:46:00 EDT, [facility] #35255, 168, cm, 02/04/22 10:23:00 EDT, Height Start [...] 0 Refills, Maintenance, 10/30/19 13:41:00 EDT, Tablet, [facility] #36218, 162.56, cm, 08/17/19 16:32:00 EST, Height, 94.4, [...] Team Personnel Name: Marianne Perez RN Position: [facility] RN Member Role: Primary Care Nurse Name: Debi Cisse MD Position: [facility] Physician - Primary Care Member Role: PCP Address: Address: [address] [place] [address] [place] [address]- Name: Viola Gonzalez Position: [facility] Outreach Member Role: Lifetime Consulting Physician Care Team Related Persons Name: ITZEL GARCIA Name: AILYN ANDERSON Name: RAF NAVARRETE
--- OUTSIDE RECORDS SUMMARY | 2022-11-22 21:27 | XMS_ITS | Continuity of Care Document ---
Author Name Unknown Organization [facility] Address [address] [facility], [address] [place] [address]- Care Team Providers Care Sodium Chlorite Operator Name Role Phone Debi Cisse MD Primary Care Physician [phone] Encounter 07/13/19 - 07/20/19 [facility] [address] [facility] [address], [address] [place] [address]- [phone] Attending Physician: Debi Cisse MD Admitting Physician: Debi Cisse MD Referring Physician: Debi Cisse MD Allergies, [...] Vacc (oldterm) 5 08/12/09 Given 1Location History: [facility] 2Result Comment: [06/04/2016] donna 3Result Comment: [04/08/2015] L&C 4Admin Note: [facility] 5Admin Note: DR. PASTOR, [facility] amLODIPine 10 mg oral tablet 10 mg, 1, tablet, By Mouth, Daily, # 90 tablet, Refills 3, Tot. Refills 3, Maintenance, 04/13/19 15:01:39 EDT, Route to Pharmacy Electronically, [id number], [facility] #[id number] Start Date: 04/13/19 Status: Ordered atenolol 100 mg oral tablet 1 tablet = 100 mg, By Mouth, 2 times a day, 0 Refills, Maintenance, 10/05/16 9:40:42 Start Date: 10/05/16 Stop Date: 11/07/16 Status: Ordered atorvastatin 20 mg oral tablet 1 tablet = 20 mg, By Mouth, Daily, # 90 tablet, 3 Refills, Maintenance, Tablet, Route to Pharmacy Electronically, [id number], [facility] Start Date: 06/30/18 Status: Ordered baclofen 10 mg oral tablet 20 mg, 2, tablet, By Mouth, Daily, # 180 tablet, Refills 3, Tot. Refills 3, Maintenance, 12/29/18 10:23:44 EDT, Route to Pharmacy Electronically, [id number], [facility] [address]5719 Start Date: 12/29/18 Stop Date: 12/24/19 Status: [...] day, # 1 each, 5 Refills, Maintenance, [place] Start Date: 03/15/13 Stop Date: 09/11/13 Status: Ordered furosemide 20 mg oral tablet 40 mg, 2, tablet, By Mouth, Daily, # 180 tablet, Refills 3, Tot. Refills 3, Maintenance, 03/24/19 8:27:15 EDT, Route to Pharmacy Electronically, [id number], [facility] #[id number] Start Date: 03/24/19 Stop Date: 03/18/20 Status: [...] supp, 1 Refills, Maintenance, 06/05/19 11:07:00 EST, [facility] #13768, 162.56, cm, 06/05/19 9:38:00EST, Height, 94.4, kg, [...] 360 tablet, Refills 1 Tot. Refills 1, [facility] #31962 Start Date: 05/15/19 Status: Ordered Levothroid 0.075 [...] 10:03:09 EDT Start Date: 10/07/18 Status: Ordered methenamine hippurate 1 gm oral tablet 1 tablet = 1 Gm, By Mouth, 2 times a day, for 30 days, # 60 tablet, 1 Refills, Acute 08/04/19 11:06:00 EST, 06/05/19 11:06:00 EST, Tablet, [facility] #27979, 162.56, cm, 06/05/19 9:38:00 EST, Height, 94.4, kg, 06/05/19 9:38:00 EST, Dry Weight Start Date: 06/05/19 Stop Date: 08/04/19 Status: Ordered Methoxamine Hippocrates 10mg Methoxamine Hippocrates 10mg, Refills 0, Maintenance, 06/05/19 9:54:00 EST, Compound Start Date: 06/05/19 Status: Ordered MiraLax Powder = 17 Gm, [...]
--- OUTSIDE RECORDS SUMMARY | 2022-11-22 21:27 | XMS_ITS | Continuity of Care Document ---
Author Name Unknown Organization [facility] Address [address] [facility], 4t [place] [address]- Care Team Providers Care Day Care Aide Name Role Phone Betito OSORIO, Debi Lizama Primary Care Physician En[place] [facility] [place] Date(s): 07/19/19 - 07/29/19 [facility] [address] [facility], 4th [place] [address]- Attending Physician: Admtr, Ar8 Admitting Physician: Admtr, [...] donna 3Result Comment: [04/08/2015] L&C 4Admin Note: [facility] 5Admin Note: DR. PASTOR, [place] Medications amLODIPine 10 mg oral tablet 10 mg, 1, tablet, By Mouth, Daily, # 90 tablet, Refills 3, Tot. Refills 3, Maintenance, 04/13/19 15:01:39 EDT, Route to Pharmacy Electronically, [id number], [facility] #[id number] Start Date: 04/13/19 Status: Ordered atenolol 100 mg oral tablet 1 tablet = 100 mg, By Mouth, 2 times a day, 0 Refills, Maintenance, 10/05/16 9:40:42 Start Date: 10/05/16 Stop Date: 11/07/16 Status: Ordered atorvastatin 20 mg oral tablet 1 tablet = 20 mg, By Mouth, Daily, # 90 tablet, 3 Refills, Maintenance, Tablet, Route to Pharmacy Electronically, [id number], [facility] Start Date: 06/30/18 Status: Ordered baclofen 10 mg oral tablet 20 mg, 2, tablet, By Mouth, Daily, # 180 tablet, Refills 3, Tot. Refills 3, Maintenance, 12/29/18 10:23:44 EDT, Route to Pharmacy Electronically, [id number], [facility]882 Start Date: 12/29/18 Stop Date: 12/24/19 Status: [...] day, # 1 each, 5 Refills, Maintenance, [place] Start Date: 03/15/13 Stop Date: 09/11/13 Status: Ordered furosemide 20 mg oral tablet 40 mg, 2, tablet, By Mouth, Daily, # 180 tablet, Refills 3, Tot. Refills 3, Maintenance, 03/24/19 8:27:15 EDT, Route to Pharmacy Electronically, [id number], [facility] #[id number] Start Date: 03/24/19 Stop Date: 03/18/20 Status: [...] supp, 1 Refills, Maintenance, 06/05/19 11:07:00 EST, [facility] #07148, 162.56, cm, 06/05/19 9:38:00EST, Height, 94.4, kg, [...] 360 tablet, Refills 1 Tot. Refills 1, [facility] #[id number] Start Date: 05/15/19 Status: Ordered Levothroid 0.075 [...] 08/04/19 11:06:00 EST, 06/05/19 11:06:00 EST, Tablet, [facility] #16986, 162.56, cm, 06/05/19 9:38:00 EST, Height, 94.4, [...]
--- OUTSIDE RECORDS SUMMARY | 2022-11-22 21:27 | XMS_ITS | Continuity of Care Document ---
Author Name Unknown Organization [facility] Address [address] [place] [address]- Care Team Providers Care Delivery Manager Name Role Phone Debi Cisse MD Primary Care Physician Encounter [facility] [place] Date(s): 03/06/20 - 06/02/20 [facility] [address] [place] [id number] Attending Physician: Grayson Canada MD Admitting Physician: Grayson Canada MD Allergies, Adverse Reactions, Alerts Substance Reaction Severity Status ciprofloxacin Itchy Active phenobarbital Active sulfa drugs Active Vasotec ULCERS IN MOUTH Active Lobster BLOODY STOOLS Active Other Food Allergy 1 SWELLING OF MOUTH Crab Active Active Dust Dust allergy tongue swells [...] 08/12/09 Given 1Admin Note: [facility] 2Location History: nursing home 3Result Comment: [06/04/2016] donna 4Result Comment: [04/08/2015] L&C 5Admin Note: DR. PASTOR, [facility] amLODIPine 10 mg oral tablet 1 tablet, By Mouth, Daily, # 90 tablet, 3 Refills, Maintenance, 04/12/20 10:49:00 EDT, [facility] #41329, 162.56, cm, 03/01/20 14:13:00 EDT, Height, 94.4, [...] 3 Refills, Maintenance, 09/20/19 11:46:00 EDT, Tablet, [facility] #21592, 162.56, cm, 08/17/19 16:32:00 EST, Height, 94.4, [...] Gm, 3 Refills, Maintenance, 05/22/20 16:20:00 EST, [facility] #05639, 162.56, cm, 05/13/20 15:07:00 EST, Height, 94.4, kg,06/05/19 9:38:00 EST, Dry Weight Start Date: 05/22/20 Status: Ordered ferrous sulfate 325 mg oral tablet 1 tablet = 325 mg, By Mouth, 3 times a day, May take once daily and increase to 3 times a day if tolerated; take with vitamin C, # 90 tablet, 2 Refills, Maintenance, 08/18/19 13:10:00 EST, Tablet, [facility] #50387, 162.56, cm, 08/17/19 16:3... Start Date: 08/18/19 Status: Ordered fluticasone 50 mcg/inh nasal spray 1 sprays, Nares, Both, 2 times a day, # 1 each, 5 Refills, Maintenance, [place] Start Date: 03/15/13 Stop Date: 09/11/13 Status: Ordered furosemide 20 mg oral tablet 40 mg, 2, tablet, By Mouth, Daily, # 180 tablet, Refills 3, Tot. Refills 3, Maintenance, 03/11/20 14:33:00 EDT, Route to Pharmacy Electronically, [facility] #49293, 162.56, cm, 03/01/20 14:13:00 EDT, Height, 94.4, [...] 8 supp, 5 Refills, Maintenance, 04/29/20 12:11:00EST, [facility], Partial fill upon patient request, [...] 05/13/20 10:26:00 EST, Route to Pharmacy Electronically, [facility] #82289, 162.56, cm, 04/15/20 14:37:00 EST, Height, 94.4, [...] 3 Refills, Maintenance, 04/12/20 10:50:00 EDT, Tablet, [facility] #20211, 162.56, cm, 03/01/20 14:13:00 EDT, Height, 94.4, [...] 10/24/20 16:37:00 EDT, 04/27/20 16:37:00 EST, Tablet, [facility] #01863, 162.56, cm, 04/15/20 14:37:00 EST, Height, 94.4, [...] Start Date: 04/23/16 Status: Ordered nystatin topical 257604 u/gm powder 1 application, Topically, 2 times a day, for 30 days, # 60 Gm, 1 Refills, Acute 01/01/21 14:28:00 EST, 04/15/20 14:28:00 EST, Powder, [facility] #56563, 1 application Topically 2 times a day,x30 days, 162.56, cm, 04/15/20 14:08:00 EST, Heigh... Start Date: 04/15/20 Stop Date: 06/14/20 Status: Ordered omeprazole 20mg omeprazole 20mg, By [...] 0 Refills, Maintenance, 10/30/19 13:41:00 EDT, Tablet, [facility][id number], 162.56, cm, 08/17/19 16:32:00 EST, Height, 94.4, [...]
--- OUTSIDE RECORDS SUMMARY | 2022-11-22 21:27 | XMS_ITS | Continuity of Care Document ---
Author Name Unknown Organization [facility] Address [address] [place] [address]- Care Team Providers Care Benefits Specialist Recruiter Name Role Phone Betito OSORIO, Debi Lizama Primary Care Physician [phone] Encounter [facility] Date(s): 12/05/21 - 01/04/22 [facility] [address] [address] Allergies, Adverse Reactions, Alerts Substance [...] (oldterm) 5 08/12/09 Given 1Admin Note: [facility] 2Location History: fpc 3Result Comment: [06/04/2016] donna 4Result Comment: [04/08/2015] L&C 5Admin Note: DR. PASTOR, [place] Medications amLODIPine 10 mg oral tablet See Instructions, TAKE 1 TABLET BY MOUTH DAILY, # 90 each, 3 Refills, 09/24/21 10:21:00 EDT, [facility] #97176, 168, cm, 09/24/21 10:10:00 EDT, Height Start [...] Stop 09/19/22 10:25:00 EDT, 09/24/21 10:25:00 EDT, [facility] #52672, 168, cm, 09/24/21 10:10:00 EDT, Height Start [...] day, # 1 each, 5 Refills, Maintenance, [place] Start Date: 03/15/13 Stop Date: 09/11/13 Status: Ordered furosemide 20 mg oral tablet 40 mg, 2, tablet, By Mouth, Daily, # 180 tablet, Refills 3, Tot. Refills 3, Maintenance, 03/11/20 14:33:00 EDT, Route to Pharmacy Electronically, [facility] #63268, 162.56, cm, 03/01/20 14:13:00 EDT, Height, 94.4, kg, 06/05/19 9:38:00 EST, D... Start Date: 03/11/20 Stop Date: 03/06/21 Status: Ordered ipratropium nasal 21 mcg/inh spray See Instructions, PRN Nasal Congestion, 1 spray each nostril BID, # 1 each, 4 Refills, Maintenance,01/01/22 16:02:00 EDT, [facility] #05673, Partial fill upon patient request if the [...] tablet, Refills 3, Route to Pharmacy Electronically, [facility] #91290, 168, cm, 03/27/21 14:00:00 EDT, Height, 94.4, [...] 3 Refills, Maintenance, 04/12/20 10:50:00 EDT, Tablet, [facility] #36146, 162.56, cm, 03/01/20 14:13:00 EDT, Height, 94.4, [...] tablet, 1 Refills, Maintenance, 09/24/21 10:21:00 EDT, [facility] #41294, 168, cm, 09/24/21 10:10:00 EDT, Height Start [...] 0 Refills, Maintenance, 10/30/19 13:41:00 EDT, Tablet, [facility] #98077, 162.56, cm, 08/17/19 16:32:00 EST, Height, 94.4, [...]
--- OUTSIDE RECORDS SUMMARY | 2022-11-22 21:27 | XMS_ITS | Continuity of Care Document ---
Author Name Unknown Organization [facility] Address [address] [facility], 4t [place] [address]- Care Team Providers Care Sanitation Supervisor Name Role Phone Betito OSORIO, Debi Lizama Primary Care Physician [id number] [address], 4th [address] [place], [place] [address] Attending Physician: Rina Saravia MD Referring Physician: eDbi Cisse MD Allergies, Adverse Reactions, Alerts Substance Reaction Severity Status phenobarbital Active Other Food Allergy 1 SWELLING [...] Vacc (oldterm) 5 08/12/09 Given 1Admin Note: [facility] 2Location History: shelter 3Result Comment: [06/04/2016] donna 4Result Comment: [04/08/2015] L&C 5Admin Note: DR. PASTOR, [place] Medications amLODIPine 10 mg oral tablet See Instructions, TAKE 1 TABLET BY MOUTH DAILY, # 90 each, 3 Refills, 09/24/21 10:21:00 EDT, [facility] #94907, 168, cm, 09/24/21 10:10:00 EDT, Height Start [...] day, # 1 each, 5 Refills, Maintenance, [place] Start Date: 03/15/13 Stop Date: 09/11/13 Status: Ordered furosemide 40 mg oral tablet 1, tablet, By Mouth, Daily, # 90 tablet, Refills 3, Tot. Refills 3, Maintenance, 06/10/22 10:40:00 EST, Route to Pharmacy Electronically, [facility] #36323, 168, cm, 06/10/22 10:25:00 EST, Height Start Date: 06/10/22 Status: Ordered ipratropium nasal 21 mcg/inh spray See Instructions, PRN Nasal Congestion, 1 spray each nostril BID, # 1 each, 4 Refills, Maintenance,01/01/22 16:02:00 EDT, [facility] #95683, Partial fill upon patient request if the [...] naps from [facility], 08/15/20 12:05:00 EST, Compound Start Date: 08/15/20 [...] tablet, Refills 3, Route to Pharmacy Electronically, [facility] #06282, 168, cm, 03/27/21 14:00:00 EDT, Height, 94.4, [...] 3 Refills, Maintenance, 04/12/20 10:50:00 EDT, Tablet, [facility] #64909, 162.56, cm, 03/01/20 14:13:00 EDT, Height, 94.4, [...] each, 3 Refills, Maintenance, 02/04/22 10:46:00 EDT, [facility] #46481, 168, cm, 02/04/22 10:23:00 EDT, Height Start [...] 0 Refills, Maintenance, 10/30/19 13:41:00 EDT, Tablet, [facility] #55834, 162.56, cm, 08/17/19 16:32:00 EST, Height, 94.4, [...] oldest [Reference Range]: 1 Height 168 cm (10/12/22 5:26 PM) Social History Social History Type Response Smoking Status Former smoker entered on: 10/04/14 Sex Patient Care team information Care Team Personnel Name: Marianne Perez RN Position: [facility] RN Member Role: Primary Care Nurse Name: Debi Cisse MD Position: [facility] Primary Care Physician Member Role: PCP Address: Address: [address] [place] [address] [place] [address]- Name: Viola Gonzalez Position: [facility] Outreach Member Role: Lifetime Consulting Physician Care Team Related Persons Name: ITZEL GARCIA Name: AILYN ANDERSON Name: [employer]
--- OUTSIDE RECORDS SUMMARY | 2022-11-22 21:27 | XMS_ITS | Continuity of Care Document ---
Author Name Unknown Organization [facility] Address [address], [address] [place] [address]- Care Team Providers Care Pilot Plant Technician Name Role Phone Betito OSORIO, Debi Lizama Primary Care Physician Encounter [facility] Date(s): 01/31/20 - 03/01/20 [facility] [address], [address] [place] [address]- [facility] Allergies, Adverse Reactions, Alerts Substance Reaction [...] donna 3Result Comment: [04/08/2015] L&C 4Admin Note: [facility] 5Admin Note: DR. PASTOR, [facility] amLODIPine 10 mg oral tablet 1 tablet, By Mouth, Daily, # 90 tablet, 0 Refills, Maintenance, 01/28/20 8:43:00 EDT, [facility] #[id number], 162.56, cm, 10/30/19 13:47:00 EDT, Height, 94.4, [...] 3 Refills, Maintenance, 09/20/19 11:46:00 EDT, Tablet, [facility] #[id number], 162.56, cm, 08/17/19 16:32:00 EST, Height, 94.4, [...] Acute 03/31/20 13:44:00 EDT, 10/30/19 13:42:00 EDT, [facility] #90269, 162.56, cm, 08/17/19 16:32:00 EST, Height, 94.4, [...] 2 Refills, Maintenance, 08/18/19 13:10:00 EST, Tablet, [facility] #05412, 162.56, cm, 08/17/19 16:3... Start Date: 08/18/19 Status: Ordered fluticasone 50 mcg/inh nasal spray 1 sprays, Nares, Both, 2 times a day, # 1 each, 5 Refills, Maintenance, [place] Start Date: 03/15/13 Stop Date: 09/11/13 Status: Ordered furosemide 20 mg oral tablet 40 mg, 2, tablet, By Mouth, Daily, # 180 tablet, Refills 3, Tot. Refills 3, Maintenance, 03/24/19 8:27:15 EDT, Route to Pharmacy Electronically, [id number], [facility] #[id number] Start Date: 03/24/19 Stop Date: 03/18/20 Status: [...] supp, 1 Refills, Maintenance, 02/01/20 9:41:00 EDT, [facility], 162.56, cm, 01/29/20 10:10:00 EDT, [...] 09/19/19 7:36:00 EDT, Route to Pharmacy Electronically, [facility] #63279, 162.56, cm, 08/17/19 16:32:00 EST, Height, 94.4, kg, 06/05/19 9:38:00 EST, D... Start Date: 09/19/19 Status: Ordered levoFLOXacin 750 mg oral tablet 1 tablet = 750 mg, By Mouth, Every 24 hours, for 7 days, # 7 tablet, 0 Refills, Acute 03/08/20 14:41:00 EDT, 03/01/20 14:41:00 EDT, Tablet, [facility] #52392, 162.56, cm, 03/01/20 14:13:00 EDT, Height, 94.4, [...] 04/27/20 16:37:00 EST, 10/30/19 16:37:00 EDT, Tablet, [facility] #15095, 162.56, cm, 10/30/19 13:47:00 EDT, Height, 94.4, [...] 0 Refills, Maintenance, 10/30/19 13:41:00 EDT, Tablet, [facility] #01175, 162.56, cm, 08/17/19 16:32:00 EST, Height, 94.4, [...]
--- OUTSIDE RECORDS SUMMARY | 2022-11-22 21:27 | XMS_ITS | Continuity of Care Document ---
Author Name Unknown Organization [facility] Address [address] [place] [address]- Care Team Providers Care Housekeeper/Laundry Assistant Name Role Phone Debi Cisse MD Primary Care Physician Encounter [facility] NBR [id number] Date(s): 06/10/22 - 06/17/22 [facility] [address] [place] [address]- Attending Physician: Debi Cisse MD Allergies, Adverse [...] Vacc (oldterm) 5 08/12/09 Given 1Admin Note: [facility] 2Location History: [facility] 3Result Comment: [06/04/2016] donna 4Result Comment: [04/08/2015] L&C 5Admin Note: DR. PASTOR, [place] Medications amLODIPine 10 mg oral tablet See Instructions, TAKE 1 TABLET BY MOUTH DAILY, # 90 each, 3 Refills, 09/24/21 10:21:00 EDT, [facility] #43104, 168, cm, 09/24/21 10:10:00 EDT, Height Start [...] Stop 09/19/22 10:25:00 EDT, 09/24/21 10:25:00 EDT, [facility] #15158, 168, cm, 09/24/21 10:10:00 EDT, Height Start [...] # 1 each, 5 Refills, Maintenance, [place] Start Date: 03/15/13 Stop Date: 09/11/13 Status: Ordered furosemide 40 mg oral tablet 1, tablet, By Mouth, Daily, # 90 tablet, Refills 3, Tot. Refills 3, Maintenance, 06/10/22 10:40:00 EST, Route to Pharmacy Electronically, [facility] #34143, 168, cm, 06/10/22 10:25:00 EST, Height Start Date: 06/10/22 Status: Ordered ipratropium nasal 21 mcg/inh spray See Instructions, PRN Nasal Congestion, 1 spray each nostril BID, # 1 each, 4 Refills, Maintenance,01/01/22 16:02:00 EDT, [facility] #06488, Partial fill upon patient request if the [...] 0, Maintenance, use overnight and naps from [facility], 08/15/20 12:05:00 EST, Compound Start [...] tablet, Refills 3, Route to Pharmacy Electronically, [facility] #98540, 168, cm, 03/27/21 14:00:00 EDT, Height, 94.4, [...] 3 Refills, Maintenance, 04/12/20 10:50:00 EDT, Tablet, [facility] #50758, 162.56, cm, 03/01/20 14:13:00 EDT, Height, 94.4, [...] each, 3 Refills, Maintenance, 02/04/22 10:46:00 EDT, [facility] #09803, 168, cm, 02/04/22 10:23:00 EDT, Height Start [...] 0 Refills, Maintenance, 10/30/19 13:41:00 EDT, Tablet, [facility] #48809, 162.56, cm, 08/17/19 16:32:00 EST, Height, 94.4, [...] oldest [Reference Range]: 1 Height 168 cm (06/10/22 10:25 AM) Oxygen Saturation [94-100 %] 98 % (06/10/22 10:25 AM) Pulse Rate [55-90 bpm] 70 bpm (06/10/22 10:25 AM) Blood Pressure [90-138/55-84 mm Hg] 138/ 62mm Hg (06/10/22 10:25 AM) Temperature [96.8-100.4 DegF] 96.8 DegF (06/10/22 10:25 AM) Liters per Minute 0 L/min (06/10/22 10:25 AM) Mode of Delivery (Oxygen) Room air (06/10/22 10:25 AM) Blood pressure sites Arm, left (06/10/22 10:25 AM) Temperature Route Temporal (06/10/22 10:25 AM) Social History Social History Type Response Smoking Status Former smoker entered on: 10/04/14 Sex Note * Nanci Lucia: PERFORM, SIGN, VERIFY Event Display: Patient Education/Instruction Authored Date: [id number] [facility] *BMP [facility] Bltn Clinical Summary Name RAF BRONSON Age 76 Years 1945 PCP Betito OSORIO, Debi Lizama PCP Visit Date 06/10/2022 10:16:00 Additional Instructions: Scheduled Appointments?? Future Appointments ?No Future Appointments Scheduled Follow-Up Instructions ?? Diagnosis Medications: Please continue your medications until treatment is completed or stopped by your provider. Discuss any questions related to medications with your provider. New Medications [facility] #[id number], [address], [place] [id number], [phone] Furosemide (furosemide 40 mg oral tablet) 1 tab(s) Oral Daily. Refills: 3. Next Dose: Medications to Continue with No Changes These [...] for 90 Days. Refills: 3. Next Dose: Buprenorphine (Belbuca 300 mcg buccal film) 1 Each every 12 hours. Next Dose: BusPIRone (busPIRone 5 mg oral tablet) 1 tab(s) Oral 3 times a day. Next Dose: Cholecalciferol (Vitamin D3) Oral Daily. Next Dose: Duloxetine (duloxetine 60 mg oral [...] for 30 Days. Refills: 5. Next Dose: Ipratropium Nasal (ipratropium nasal 21 [...] Height 168 cm Weight BMI Blood Pressure 138 mm Hg/62 mm Hg Temperature 96.8 DegF Pulse Rate 70 bpm Respiratory Rate 02 Sat Mode of Delivery 98 %/Room air You can now view a summary of your hospital visit from the comfort of your home through a free online portal called [employer]. [employer] is a website that allows you to securely view your medical information including discharge summary, medications and follow-up visits. ??You can alsosend a secure electronic message to your doctor???s office to request appointments, renew medications or just ask a question. You can enroll at [email or web address] or register during your next office visit. [...] primary care provider, you may find a [facility] provider by calling [facility] [employer] Link at [phone]. For information about the plan of care [...] Team Personnel Name: Marianne Perez RN Position: [facility] RN Member Role: Primary Care Nurse Name: Debi Cisse MD Position: [facility] Primary Care Physician Member Role: PCP Address: Address: [address] [place] [address] Adult [place], [place] [address] Name: Viola Gonzalez Position: [facility] Outreach Member Role: Lifetime Consulting Physician Care Team Related Persons Name: ITZEL GARCIA Name: AILYN ANDERSON Name: RAF NAVARRETE
--- OUTSIDE RECORDS SUMMARY | 2022-11-22 21:28 | XMS_ITS | Continuity of Care Document ---
Author Name Unknown Organization [facility] Address [address], [address] [place] [address]- Care Team Providers Care Insert Molding Operator Name Role Phone Betito OSORIO, Debi Lizama Primary Care Physician [place] [facility] Date(s): 04/29/20 - 05/29/20 [facility] [address] [place], [place] [address] Attending Physician: Admtr, [id number] Admitting Physician: Admtr, [...] acel(Tdap) 01/29/11 Given Pneumococcal Vacc (oldterm) 5 3/1/10 Given 1Admin Note: [facility] 2Location History: skilled nursing 3Result Comment: [06/04/2016] donna 4Result Comment: [04/08/2015] L&C 5Admin Note: DR. PASTOR, [place] Medications amLODIPine 10 mg oral tablet 1 tablet, By Mouth, Daily, # 90 tablet, 3 Refills, Maintenance, 04/12/20 10:49:00 EDT, [facility] #96335, 162.56, cm, 03/01/20 14:13:00 EDT, Height, 94.4, [...] 3 Refills, Maintenance, 09/20/19 11:46:00 EDT, Tablet, [facility] #35768, 162.56, cm, 08/17/19 16:32:00 EST, Height, 94.4, [...] Gm, 3 Refills, Maintenance, 05/22/20 16:20:00 EST, [facility] #05545, 162.56, cm, 05/13/20 15:07:00 EST, Height, 94.4, kg,06/05/19 9:38:00 EST, Dry Weight Start Date: 05/22/20 Status: Ordered ferrous sulfate 325 mg oral tablet 1 tablet = 325 mg, By Mouth, 3 times a day, May take once daily and increase to 3 times a day if tolerated; take with vitamin C, # 90 tablet, 2 Refills, Maintenance, 08/18/19 13:10:00 EST, Tablet, [facility] #80359, 162.56, cm, 08/17/19 16:3... Start Date: 08/18/19 Status: Ordered fluticasone 50 mcg/inh nasal spray 1 sprays, Nares, Both, 2 times a day, # 1 each, 5 Refills, Maintenance, [place] Start Date: 03/15/13 Stop Date: 09/11/13 Status: Ordered furosemide 20 mg oral tablet 40 mg, 2, tablet, By Mouth, Daily, # 180 tablet, Refills 3, Tot. Refills 3, Maintenance, 03/11/20 14:33:00 EDT, Route to Pharmacy Electronically, [facility] #37507, 162.56, cm, 03/01/20 14:13:00 EDT, Height, 94.4, [...] 8 supp, 5 Refills, Maintenance, 04/29/20 12:11:00EST, [facility], Partial fill upon patient request, [...] 05/13/20 10:26:00 EST, [facility], 162.56, cm, 04/15/20 14:37:00 EST, Height, 94.4, [...] 3 Refills, Maintenance, 04/12/20 10:50:00 EDT, Tablet, [facility] #40383, 162.56, cm, 03/01/20 14:13:00 EDT, Height, 94.4, [...] 10/24/20 16:37:00 EDT, 04/27/20 16:37:00 EST, Tablet, [facility] #04326, 162.56, cm, 04/15/20 14:37:00 EST, Height, 94.4, [...] Start Date: 04/23/16 Status: Ordered nystatin topical 867596 u/gm powder 1 application, Topically, 2 times a day, for 30 days, # 60 Gm, 1 Refills, Acute 06/14/20 14:28:00 EST, 04/15/20 14:28:00 EST, Powder, [facility] #81298, 1 application Topically 2 times a day,x30 [...] 0 Refills, Maintenance, 10/30/19 13:41:00 EDT, Tablet, [facility] #81506, 162.56, cm, 08/17/19 16:32:00 EST, Height, 94.4, [...]
--- OUTSIDE RECORDS SUMMARY | 2022-11-22 21:28 | XMS_ITS | Continuity of Care Document ---
Author Name Unknown Organization [facility] Address [address] [place] [address]- Care Team Providers Care Communications Strategist Name Role Phone Debi Cisse MD Primary Care Physician [id number] Date(s): 04/15/20 - 04/22/20 [facility] [address] [place] [address]- Attending Physician: Debi Cisse MD Allergies, Adverse [...] Vacc (oldterm) 5 08/12/09 Given 1Admin Note: [facility] 2Location History[facility] 3Result Comment: [06/04/2016] donna 4Result Comment: [04/08/2015] L&C 5Admin Note: DR. PASTOR, [facility] amLODIPine 10 mg oral tablet 1 tablet, By Mouth, Daily, # 90 tablet, 3 Refills, Maintenance, 04/12/20 10:49:00 EDT, [facility] #99329, 162.56, cm, 03/01/20 14:13:00 EDT, Height, 94.4, [...] 3 Refills, Maintenance, 09/20/19 11:46:00 EDT, Tablet, [facility] #41021, 162.56, cm, 08/17/19 16:32:00 EST, Height, 94.4, [...] 2 Refills, Maintenance, 08/18/19 13:10:00 EST, Tablet, [facility] #44230, 162.56, cm, 08/17/19 16:3... Start Date: 08/18/19 Status: Ordered fluticasone 50 mcg/inh nasal spray 1 sprays, Nares, Both, 2 times a day, # 1 each, 5 Refills, Maintenance, [place] Start Date: 03/15/13 Stop Date: 09/11/13 Status: Ordered furosemide 20 mg oral tablet 40 mg, 2, tablet, By Mouth, Daily, # 180 tablet, Refills 3, Tot. Refills 3, Maintenance, 03/11/20 14:33:00 EDT, Route to Pharmacy Electronically, [facility] #74579, 162.56, cm, 03/01/20 14:13:00 EDT, Height, 94.4, [...] Vaginally Daily twice weekly, # 18 supp, 2 Refills, Maintenance, 04/11/20 8:31:00 EDT, [facility], 162.56, cm, 03/01/20 14:13:00 EDT, Height, 94.4, kg, 06/05/19 9:38:00 EST, Dry Weight Start Date: 04/11/20 Status: Ordered L Marko Knee CHECK knee [...] 09/19/19 7:36:00 EDT, Route to Pharmacy Electronically, [facility] #67193, 162.56, cm, 08/17/19 16:32:00 EST, Height, 94.4, [...] days, # 90 tablet, 0 Refills, Acute 05/15/20 17:07:00 EST, 04/15/20 17:07:00 EST, Tablet, [facility] #28421, 162.56, cm, 04/15/20 14:37:00 EST, Height, 94.4, kg, 06/05/19 9:... Start Date: 04/15/20 Stop Date: 05/15/20 Status: Ordered losartan 100 mg oral tablet 1 tablet = 100 mg, By Mouth, Daily, To replace valsartan, # 90 tablet, 3 Refills, Maintenance, 04/12/20 10:50:00 EDT, Tablet, [facility] #81118, 162.56, cm, 03/01/20 14:13:00 EDT, Height, 94.4, kg, 06/05/19 9:38:00 EST, Dry Weight Start Date: 04/12/20 Status: Ordered methenamine hippurate 1 gm oral tablet 1 tablet = 1 Gm, By Mouth, 2 times a day, for 30 days, # 60 tablet, 5 Refills, Acute 04/27/20 16:37:00 EST, 10/30/19 16:37:00 EDT, Tablet, [facility] #92985, 162.56, cm, 10/30/19 13:47:00 EDT, Height, 94.4, kg, 06/05/19 9:38:00 EST, Dry Weight Start Date: 10/30/19 Stop Date: 04/27/20 Status: Ordered methenamine hippurate 1 gm oral tablet 1 tablet = 1 Gm, By Mouth, 2 times a day, for 30 days, # 60 tablet, 5 Refills, Acute 10/24/20 16:37:00 EDT, 04/27/20 16:37:00 EST, Tablet, [facility] #20587, 162.56, cm, 04/15/20 14:37:00 EST, Height, 94.4, [...] Start Date: 04/23/16 Status: Ordered nystatin topical 222099 u/gm powder 1 application, Topically, 2 times a day, for 30 days, # 60 Gm, 1 Refills, Acute 06/14/20 14:28:00 EST, 04/15/20 14:28:00 EST, Powder, [facility] #36815, 1 application Topically 2 times a day,x30 days, 162.56, cm, 04/15/20 14:08:00 EST, Heigh... Start Date: 04/15/20 Stop Date: 06/14/20 Status: Ordered omeprazole 20mg omeprazole 20mg, Refills [...] 0 Refills, Maintenance, 10/30/19 13:41:00 EDT, Tablet, [facility] #63796, 162.56, cm, 08/17/19 16:32:00 EST, Height, 94.4, [...] Most recent to oldest [Reference Range]: 1 2 Height 162.56 cm (04/15/20 2:37 PM) 162.56 cm (04/15/20 2:08 PM) Oxygen Saturation [94-100 %] 96 % (04/15/20 2:08 PM) Pulse Rate [55-90 bpm] 58 bpm (04/15/20 2:08 PM) Blood Pressure [90-138/55-84 mm Hg] 132/ 72mm Hg (04/15/20 2:37 PM) 150/70mm Hg *H* (04/15/20 2:08 PM) Temperature [96.8-100.4 DegF] 96.6 DegF *L* (04/15/20 2:08 PM) Blood pressure sites Arm, left (04/15/20 2:08 PM) Temperature Route Temporal (04/15/20 2:08 PM) Social History Social History Type Response Smoking Status Former smoker entered on: 10/04/14 Sex
--- OUTSIDE RECORDS SUMMARY | 2022-11-22 21:28 | XMS_ITS | Continuity of Care Document ---
Author Name Unknown Organization [facility] Address [address] [place] [address]- Care Team Providers Care Mechanical Cad Drafter Name Role Phone Betito OSORIO, Debi Lizama Primary Care Physician Encounter [facility] Date(s): 08/05/22 - 09/04/22 [facility] [address] [place] [address] [place] Allergies, Adverse Reactions, Alerts Substance Reaction [...] Vacc (oldterm) 5 08/12/09 Given 1Admin Note: [facility] 2Location History: [facility] 3Result Comment: [06/04/2016] donna 4Result Comment: [04/08/2015] L&C 5Admin Note: DR. PASTOR, [place] Medications amLODIPine 10 mg oral tablet See Instructions, TAKE 1 TABLET BY MOUTH DAILY, # 90 each, 3 Refills, 09/24/21 10:21:00 EDT, [facility] #46630, 168, cm, 09/24/21 10:10:00 EDT, Height Start [...] Stop 09/19/22 10:25:00 EDT, 09/24/21 10:25:00 EDT, [facility] #78395, 168, cm, 09/24/21 10:10:00 EDT, Height Start [...] Acute 08/07/23 16:53:00 EST, 08/06/22 16:53:00EST, Ointment, [facility] #14245, Partial fill upon patient request if the [...] day, # 1 each, 5 Refills, Maintenance, [place] Start Date: 03/15/13 Stop Date: 09/11/13 Status: Ordered furosemide 40 mg oral tablet 1, tablet, By Mouth, Daily, # 90 tablet, Refills 3, Tot. Refills 3, Maintenance, 06/10/22 10:40:00 EST, Route to Pharmacy Electronically, [facility] #50659, 168, cm, 06/10/22 10:25:00 EST, Height Start Date: 06/10/22 Status: Ordered ipratropium nasal 21 mcg/inh spray See Instructions, PRN Nasal Congestion, 1 spray each nostril BID, # 1 each, 4 Refills, Maintenance,01/01/22 16:02:00 EDT, [facility] #34764, Partial fill upon patient request if the [...] Maintenance, use overnight and naps from [facility], 08/15/20 12:05:00 EST, Compound Start Date: [...] tablet, Refills 3, Route to Pharmacy Electronically, [facility] #84227, 168, cm, 03/27/21 14:00:00 EDT, Height, 94.4, [...] 3 Refills, Maintenance, 04/12/20 10:50:00 EDT, Tablet, [facility] #23087, 162.56, cm, 03/01/20 14:13:00 EDT, Height, 94.4, [...] each, 3 Refills, Maintenance, 02/04/22 10:46:00 EDT, [facility] #94560, 168, cm, 02/04/22 10:23:00 EDT, Height Start [...] 0 Refills, Maintenance, 10/30/19 13:41:00 EDT, Tablet, [facility] #10659, 162.56, cm, 08/17/19 16:32:00 EST, Height, 94.4, [...] Team Personnel Name: Marianne Perez RN Position: [facility] RN Member Role: Primary Care Nurse Name: Debi Cisse MD Position: [facility] Primary Care Physician Member Role: PCP Address: Address: [address] [place] [address] Adult [place], [place] [address] Name: Viola Gonzalez Position: [facility] Outreach Member Role: Lifetime Consulting Physician Care Team Related Persons Name: ITZEL GARCIA Name: AILYN ANDERSON Name: RAF NAVARRETE
--- OUTSIDE RECORDS SUMMARY | 2022-11-22 21:28 | XMS_ITS | Continuity of Care Document ---
Author Name Unknown Organization [facility] Address [address] [place] [address]- Care Team Providers Care Middleware Consultant Name Role Phone Betito OSORIO, Debi Lizama Primary Care Physician Encounter 10/28/21 - 11/04/21 [facility] [address], [address] [place] [address]- Attending Physician: Franck Andrea DO Admitting Physician: Franck Andrea DO Referring Physician: Franck Andrea DO Allergies, Adverse Reactions, Alerts Substance Reaction Severity [...] Vacc (oldterm) 5 08/12/09 Given 1Admin Note: [facility] 2Location History: [facility] 3Result Comment: [06/04/2016] donna 4Result Comment: [04/08/2015] L&C 5Admin Note: DR. PASTOR, [place] Medications amLODIPine 10 mg oral tablet See Instructions, TAKE 1 TABLET BY MOUTH DAILY, # 90 each, 3 Refills, 09/24/21 10:21:00 EDT, [facility] #51712, 168, cm, 09/24/21 10:10:00 EDT, Height Start [...] Stop 09/19/22 10:25:00 EDT, 09/24/21 10:25:00 EDT, [facility] #04559, 168, cm, 09/24/21 10:10:00 EDT, Height Start [...] day, # 1 each, 5 Refills, Maintenance, [place] Start Date: 03/15/13 Stop Date: 09/11/13 Status: Ordered furosemide 20 mg oral tablet 40 mg, 2, tablet, By Mouth, Daily, # 180 tablet, Refills 3, Tot. Refills 3, Maintenance, 03/11/20 14:33:00 EDT, Route to Pharmacy Electronically, [facility] #64684, 162.56, cm, 03/01/20 14:13:00 EDT, Height, 94.4, kg, 06/05/19 9:38:00 EST, D... Start Date: 03/11/20 Stop Date: 03/06/21 Status: Ordered ipratropium nasal 21 mcg/inh spray See Instructions, PRN Nasal Congestion, 1 spray each nostril BID, # 1 each, 4 Refills, Maintenance,07/17/20 12:08:00 EST, [facility] #14376, Partial fill upon patient request if the [...] and naps from [facility], 08/15/20 12:05:00 EST, Compound Start Date: 08/15/20 [...] tablet, Refills 3, Route to Pharmacy Electronically, [facility] #02973, 168, cm, 03/27/21 14:00:00 EDT, Height, 94.4, [...] 3 Refills, Maintenance, 04/12/20 10:50:00 EDT, Tablet, [facility] #14385, 162.56, cm, 03/01/20 14:13:00 EDT, Height, 94.4, [...] tablet, 1 Refills, Maintenance, 09/24/21 10:21:00 EDT, [facility] #99597, 168, cm, 09/24/21 10:10:00 EDT, Height Start [...] 0 Refills, Maintenance, 10/30/19 13:41:00 EDT, Tablet, [facility] #13106, 162.56, cm, 08/17/19 16:32:00 EST, Height, 94.4, [...]
--- OUTSIDE RECORDS SUMMARY | 2022-11-22 21:28 | XMS_ITS | Continuity of Care Document ---
Author Name Unknown Organization [facility] [employer] Address [address] [place] [address], [address] [place] [address]- Care Team Providers Care Printed Circuit Photographer Name Role Phone Betito OSORIO, Debi Lizama Primary Care Physician Encounter [facility] Date(s): 07/28/22 - 08/04/22 [facility] [address] [facility], 4th [place] [address]- Attending Physician: Rina Saravia MD Referring Physician: Debi Cisse MD Allergies, Adverse Reactions, Alerts Substance Reaction Severity Status phenobarbital Active sulfa drugs Active Vasotec ULCERS IN MOUTH Active Other Food Allergy 1 SWELLING OF [...] Vacc (oldterm) 5 08/12/09 Given 1Admin Note: [facility] 2Location History: [facility] 3Result Comment: [06/04/2016] donna 4Result Comment: [04/08/2015] L&C 5Admin Note: DR. PASTOR, [place] Medications amLODIPine 10 mg oral tablet See Instructions, TAKE 1 TABLET BY MOUTH DAILY, # 90 each, 3 Refills, 09/24/21 10:21:00 EDT, [facility] #[id number], 168, cm, 09/24/21 10:10:00 EDT, Height Start [...] Stop 09/19/22 10:25:00 EDT, 09/24/21 10:25:00 EDT, [facility] #[id number], 168, cm, 09/24/21 10:10:00 EDT, Height Start Date: 09/24/21 Stop Date: 09/19/22 Status: Ordered busPIRone 5 mg oral tablet 5 mg, 1, tablet, By Mouth, 3 times a day, # 90 tablet, Refills 0, Maintenance, 09/24/21 10:12:00 EDT, Partial fill upon patient request if the prescription is for a schedule II opioid drug. Start Date: 09/24/21 Status: Ordered cephalexin monohydrate 500 mg oral capsule 1 capsule = 500 mg, By Mouth, 4 times a day, for 7 days, # 28 capsule, 0 Refills, Acute 08/07/22 17:34:00 EST, 07/31/22 17:34:00 EST, Capsule, [facility] #[id number], Partial fill upon patient request if the prescription is for a schedule II opio... Start Date: 07/31/22 Stop Date: 08/07/22 Status: Ordered Compression Stockings See Instructions, # [...] day, # 1 each, 5 Refills, Maintenance, [place] Start Date: 03/15/13 Stop Date: 09/11/13 Status: Ordered furosemide 40 mg oral tablet 1, tablet, By Mouth, Daily, # 90 tablet, Refills 3, Tot. Refills 3, Maintenance, 06/10/22 10:40:00 EST, Route to Pharmacy Electronically, [facility] #[id number], 168, cm, 06/10/22 10:25:00 EST, Height Start Date: 06/10/22 Status: Ordered ipratropium nasal 21 mcg/inh spray See Instructions, PRN Nasal Congestion, 1 spray each nostril BID, # 1 each, 4 Refills, Maintenance,01/01/22 16:02:00 EDT, [facility] #[id number], Partial fill upon patient request if the [...] tablet, Refills 3, Route to Pharmacy Electronically, [facility] #[id number], 168, cm, 03/27/21 14:00:00 EDT, Height, 94.4, kg, 06/05/19 9:38:00 EST, DryWeight Start Date: 04/04/21 Status: Ordered levothyroxine 0.075 mg oral tablet 0 Refills, Maintenance, 08/15/19 15:34:00 EST Start Date: 08/15/19 Status: Ordered lidocaine 0.5% topical gel 1 application, Topically, 3 times a day, # 240 Gm, 0 Refills, Acute 07/29/23 16:14:00 EST, 07/28/2315:14:00 EST, Gel, [facility] #[id number], Partial fill upon patient request if the prescription is for a schedule II opioid drug., 1 application... Start Date: 07/28/22 Stop Date: 07/29/23 Status: Ordered lidocaine 4% topical cream 1 application, Topically, 3 times a day, # 30 Gm, 1 Refills, Acute 07/30/23 15:31:00 EST, 07/29/22 15:31:00 EST, Cream, [facility] #[id number], Partial fill upon patient request if the prescription is for a schedule II opioid drug., 1 application... Start Date: 07/29/22 Stop Date: 07/30/23 Status: Ordered lidocaine 5% topical ointment 1 application, Topically, 3 times a day, # 35 Gm, 0 Refills, Acute 08/03/23 21:37:00 EST, 08/02/22 21:37:00 EST, Ointment, [facility] #38589, Partial fill upon patient request if the prescription is for a schedule II opioid drug., 1 applicat... Start Date: 08/02/22 Stop Date: 08/03/23 Status: Ordered Lorazepam = 0.5 mg, By Mouth, prn, 0 Refills, Maintenance, 08/15/19 15:31:00 EST Start Date: 08/15/19 Status: Ordered losartan 100 mg oral tablet 1 tablet = 100 mg, By Mouth, Daily, To replace valsartan, # 90 tablet, 3 Refills, Maintenance, 04/12/20 10:50:00 EDT, Tablet, [facility] #17095, 162.56, cm, 03/01/20 14:13:00 EDT, Height, 94.4, [...] each, 3 Refills, Maintenance, 02/04/22 10:46:00 EDT, [facility] #[id number], 168, cm, 02/04/22 10:23:00 EDT, Height Start [...] 0 Refills, Maintenance, 10/30/19 13:41:00 EDT, Tablet, [facility] #[id number], 162.56, cm, 08/17/19 16:32:00 EST, Height, 94.4, [...] oldest [Reference Range]: 1 Height 168 cm (07/28/22 1:26 PM) Pulse Rate [55-90 bpm] 57 bpm (07/28/22 1:26 PM) Blood Pressure [90-138/55-84 mm Hg] 146/ 62mm Hg *H* (07/28/22 1:26 PM) Respiratory Rate [16-30 br/min] 14 br/mi n *L* (07/28/22 1:26 PM) Blood pressure sites Arm, left (07/28/22 1:26 PM) Social History Social History Type Response Smoking Status Former smoker entered on: 10/04/14 Sex Note * Flor Ferrer: PERFORM, SIGN, VERIFY Event Display: Patient Education/Instruction Authored Date: [id number] [facility] *[facility] [employer] Clinical Summary Name RAF BRONSON Age 77 Years 1945 PCP Debi Cisse MD PCP Visit Date 07/28/2022 12:59:00 Additional Instructions: Scheduled Appointments?? Future Appointments ?*[facility] ?[address]??[place],??[place],??[address] ?Phone:??--?Fax:??-- ?Appt. Date:??08/19/2022?11:00 AM ?Scheduled Provider:??Rina Saravia MD ?*[facility] ?[address]??[place],??[place],??[address] ?Phone:??--?Fax:??-- ?Appt. Date:??10/14/2022?1:00 PM ?Scheduled Provider:??Debi Cisse MD Follow-Up Instructions ?? 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 Next Dose: Nitrofurantoin (nitrofurantoin macrocrystals-monohydrate 100 mg oral capsule) 1 capsule Oral twice a day for 7 Days. Refills: 0. Next Dose: Polyethylene Glycol 3350 (MiraLax Powder) [...] phenobarbital Medications Given This Visit Future Orders ?Complete Urinalysis/Reflex Culture? Order Date:07/28/22?- Complete by?07/28/22 Vital Signs Height 168 cm Weight BMI Blood Pressure 146 mm Hg/62 mm Hg Temperature Pulse Rate 57 bpm Respiratory Rate 14 br/min 02 Sat Mode of Delivery / You can now view a summary of your hospital visit from the comfort of your home through a free online portal called [employer]. [employer] is a website that allows you to securely view your medical information including discharge summary, medications and follow-up visits. ??You can alsosend a secure electronic message to your doctor???s office to request appointments, renew medications or just ask a question. You can enroll at [email or web address] or register during your next office [...] primary care provider, you may find a [facility] provider by calling [facility] at [phone]. For information about the plan of care [...] Team Personnel Name: Marianne Perez RN Position: [facility] RN Member Role: Primary Care Nurse Name: Debi Cisse MD Position: [facility] Primary Care Physician Member Role: PCP Address: Address: [address] [place] [address] [place] [address]- Name: Viola Gonzalez Position: [facility] Outreach Member Role: Lifetime Consulting Physician Care Team Related Persons Name: ITZEL GARCIA Name: AILYN ANDERSON Name: RAF NAVARRETE
--- OUTSIDE RECORDS SUMMARY | 2022-11-22 21:28 | XMS_ITS | Continuity of Care Document ---
Author Name Unknown Organization [facility] Address [address] [place] [address]- Care Team Providers Care Rubber Curer Name Role Phone Betito OSORIO, Debi Lizama Primary Care Physician Encounter [facility] Date(s): 09/10/22 - 10/10/22 [facility] [address] [place] [address] [place] Allergies, Adverse Reactions, Alerts Substance Reaction [...] Vacc (oldterm) 5 08/12/09 Given 1Admin Note: [place] 2Location History: skilled nursing 3Result Comment: [06/04/2016] donna 4Result Comment: [04/08/2015] L&C 5Admin Note: DR. PASTOR, [place] Medications amLODIPine 10 mg oral tablet See Instructions, TAKE 1 TABLET BY MOUTH DAILY, # 90 each, 3 Refills, 09/24/21 10:21:00 EDT, [facility] #[id number], 168, cm, 09/24/21 10:10:00 EDT, Height Start [...] Acute 08/07/23 16:53:00 EST, 08/06/22 16:53:00EST, Ointment, [facility] #[id number], Partial fill upon patient request if the [...] day, # 1 each, 5 Refills, Maintenance, [place] Start Date: 03/15/13 Stop Date: 09/11/13 Status: Ordered furosemide 40 mg oral tablet 1, tablet, By Mouth, Daily, # 90 tablet, Refills 3, Tot. Refills 3, Maintenance, 06/10/22 10:40:00 EST, Route to Pharmacy Electronically, [facility] #[id number], 168, cm, 06/10/22 10:25:00 EST, Height Start Date: 06/10/22 Status: Ordered ipratropium nasal 21 mcg/inh spray See Instructions, PRN Nasal Congestion, 1 spray each nostril BID, # 1 each, 4 Refills, Maintenance,01/01/22 16:02:00 EDT, [facility] #[id number], Partial fill upon patient request if the [...] 0, Maintenance, use overnight and naps from [facility], 08/15/20 12:05:00 EST, Compound Start [...] tablet, Refills 3, Route to Pharmacy Electronically, [facility] #[id number], 168, cm, 03/27/21 14:00:00 EDT, Height, 94.4, [...] 3 Refills, Maintenance, 04/12/20 10:50:00 EDT, Tablet, [facility] #13434, 162.56, cm, 03/01/20 14:13:00 EDT, Height, 94.4, [...] each, 3 Refills, Maintenance, 02/04/22 10:46:00 EDT, [facility] #[id number], 168, cm, 02/04/22 10:23:00 EDT, Height Start [...] 0 Refills, Maintenance, 10/30/19 13:41:00 EDT, Tablet, [facility] #07419, 162.56, cm, 08/17/19 16:32:00 EST, Height, 94.4, [...] Team Personnel Name: Marianne Perez RN Position: [facility] RN Member Role: Primary Care Nurse Name: Debi Cisse MD Position: [facility] Primary Care Physician Member Role: PCP Address: Address: [address] [place] [address] Adult [place], [place] [address] Name: Viola Gonzalez Position: [facility] Outreach Member Role: Lifetime Consulting Physician Care Team Related Persons Name: ITZEL GARCIA Name: AILYN ANDERSON Name: RAF NAVARRETE
--- OUTSIDE RECORDS SUMMARY | 2022-11-22 21:28 | XMS_ITS | Continuity of Care Document ---
Author Name Unknown Organization [facility] [employer] Address [address], 4t [place] [address]- Care Team Providers Care Form Tamper Operator Name Role Phone Betito OSORIO, Debi Lizama Primary Care Physician [phone] Encounter [facility] Date(s): 07/29/22 - 08/28/22 [facility] [employer] [facility] [address], 4th [address] [place], [place] [address] Allergies, Adverse Reactions, Alerts Substance Reaction Severity [...] Vacc (oldterm) 5 08/12/09 Given 1Admin Note: [facility] 2Location History: care home 3Result Comment: [06/04/2016] donna 4Result Comment: [04/08/2015] L&C 5Admin Note: DR. PASTOR, [place] Medications amLODIPine 10 mg oral tablet See Instructions, TAKE 1 TABLET BY MOUTH DAILY, # 90 each, 3 Refills, 09/24/21 10:21:00 EDT, [facility] #[id number], 168, cm, 09/24/21 10:10:00 EDT, Height Start [...] Stop 09/19/22 10:25:00 EDT, 09/24/21 10:25:00 EDT, [facility] #[id number], 168, cm, 09/24/21 10:10:00 EDT, Height Start [...] Acute 08/07/23 16:53:00 EST, 08/06/22 16:53:00EST, Ointment, [facility] #[id number], Partial fill upon patient request if the [...] day, # 1 each, 5 Refills, Maintenance, [place] Start Date: 03/15/13 Stop Date: 09/11/13 Status: Ordered furosemide 40 mg oral tablet 1, tablet, By Mouth, Daily, # 90 tablet, Refills 3, Tot. Refills 3, Maintenance, 06/10/22 10:40:00 EST, Route to Pharmacy Electronically, [facility] #[id number], 168, cm, 06/10/22 10:25:00 EST, Height Start Date: 06/10/22 Status: Ordered ipratropium nasal 21 mcg/inh spray See Instructions, PRN Nasal Congestion, 1 spray each nostril BID, # 1 each, 4 Refills, Maintenance,01/01/22 16:02:00 EDT, [facility] #37408, Partial fill upon patient request if the [...] tablet, Refills 3, Route to Pharmacy Electronically, [facility] #[id number], 168, cm, 03/27/21 14:00:00 EDT, Height, 94.4, [...] 3 Refills, Maintenance, 04/12/20 10:50:00 EDT, Tablet, [facility] #[id number], 162.56, cm, 03/01/20 14:13:00 EDT, Height, 94.4, [...] each, 3 Refills, Maintenance, 02/04/22 10:46:00 EDT, [facility] #81484, 168, cm, 02/04/22 10:23:00 EDT, Height Start [...] 0 Refills, Maintenance, 10/30/19 13:41:00 EDT, Tablet, [facility] #22701, 162.56, cm, 08/17/19 16:32:00 EST, Height, 94.4, [...] Team Personnel Name: Ana YAP, Marianne Position: [facility] RN Member Role: Primary Care Nurse Name: Debi Cisse MD Position: [facility] Primary Care Physician Member Role: PCP Address: Address: [address] [place] [address] Adult [place], [place] [address] Name: Viola Gonzalez Position: [facility] Outreach Member Role: Lifetime Consulting Physician Care Team Related Persons Name: ITZEL GARCIA Name: AILYN ANDERSON Name: RAF NAVARRETE
--- OUTSIDE RECORDS SUMMARY | 2022-11-22 21:28 | XMS_ITS | Continuity of Care Document ---
Author Name Unknown Organization [facility] Address [address] [place] [address]- Care Team Providers Care Sales Hunter Name Role Phone Betito OSORIO, Debi Lizama Primary Care Physician Encounter [facility] Date(s): 07/31/22 - 08/30/22 [facility] [address] [place] [address] [place] Allergies, Adverse Reactions, Alerts Substance Reaction [...] Vacc (oldterm) 5 08/12/09 Given 1Admin Note: [facility] 2Location History: halfway 3Result Comment: [06/04/2016] donna 4Result Comment: [04/08/2015] L&C 5Admin Note: DR. PASTOR, [place] Medications amLODIPine 10 mg oral tablet See Instructions, TAKE 1 TABLET BY MOUTH DAILY, # 90 each, 3 Refills, 09/24/21 10:21:00 EDT, [facility] #[id number], 168, cm, 09/24/21 10:10:00 EDT, Height Start [...] Stop 09/19/22 10:25:00 EDT, 09/24/21 10:25:00 EDT, [facility] #75255, 168, cm, 09/24/21 10:10:00 EDT, Height Start [...] Acute 08/07/23 16:53:00 EST, 08/06/22 16:53:00EST, Ointment, [facility] #[id number], Partial fill upon patient request if the [...] day, # 1 each, 5 Refills, Maintenance, [place] Start Date: 03/15/13 Stop Date: 09/11/13 Status: Ordered furosemide 40 mg oral tablet 1, tablet, By Mouth, Daily, # 90 tablet, Refills 3, Tot. Refills 3, Maintenance, 06/10/22 10:40:00 EST, Route to Pharmacy Electronically, [facility] #[id number], 168, cm, 06/10/22 10:25:00 EST, Height Start Date: 06/10/22 Status: Ordered ipratropium nasal 21 mcg/inh spray See Instructions, PRN Nasal Congestion, 1 spray each nostril BID, # 1 each, 4 Refills, Maintenance,01/01/22 16:02:00 EDT, [facility] #91045, Partial fill upon patient request if the [...] Maintenance, use overnight and naps from [facility], 08/15/20 12:05:00 EST, Compound Start [...] tablet, Refills 3, Route to Pharmacy Electronically, [facility] #10335, 168, cm, 03/27/21 14:00:00 EDT, Height, 94.4, [...] 3 Refills, Maintenance, 04/12/20 10:50:00 EDT, Tablet, [facility] #[id number], 162.56, cm, 03/01/20 14:13:00 EDT, Height, 94.4, [...] each, 3 Refills, Maintenance, 02/04/22 10:46:00 EDT, [facility] #[id number], 168, cm, 02/04/22 10:23:00 EDT, Height Start [...] 0 Refills, Maintenance, 10/30/19 13:41:00 EDT, Tablet, [facility] #[id number], 162.56, cm, 08/17/19 16:32:00 EST, Height, 94.4, [...] Team Personnel Name: Marianne Perez RN Position: [facility] RN Member Role: Primary Care Nurse Name: Debi Cisse MD Position: [facility] Primary Care Physician Member Role: PCP Address: Address: [address] [place] [address] Adult [place], [place] [address] Name: Viola Gonzalez Position: [facility] Outreach Member Role: Lifetime Consulting Physician Care Team Related Persons Name: ITZEL GARCIA Name: AILYN ANDERSON Name: RAF NAVARRETE
--- OUTSIDE RECORDS SUMMARY | 2022-11-22 21:28 | XMS_ITS | Continuity of Care Document ---
Author Name Unknown Organization [facility] [employer] Address [address], 4t [place] [address]- Care Team Providers Care High Raw Sugar Boiler Name Role Phone Betito OSORIO, Debi Lizama Primary Care Physician [facility] Date(s): 04/01/21 - 05/01/21 [facility] [employer] [facility] [address], 4th [address] [place], [place] [address] Allergies, Adverse Reactions, Alerts Substance [...] Vacc (oldterm) 5 08/12/09 Given 1Admin Note: [facility] 2Location History: intermediate 3Result Comment: [06/04/2016] donna 4Result Comment: [04/08/2015] L&C 5Admin Note: DR. PASTOR, [place] Medications amLODIPine 10 mg oral tablet See Instructions, TAKE 1 TABLET BY MOUTH DAILY, # 90 tablet, 0 Refills, [facility] #[id number], 168, cm, 03/27/21 14:00:00 EDT, Height, 94.4, kg, 06/05/19 9:38:00 EST, Dry Weight Start Date: 04/29/21 Status: Ordered amLODIPine 10 mg oral tablet 1 tablet, By Mouth, Daily, # 90 tablet, 3 Refills, Maintenance, 04/12/20 10:49:00 EDT, [facility] #[id number], 162.56, cm, 03/01/20 14:13:00 EDT, Height, 94.4, kg, 06/05/19 9:38:00 EST, Dry Weight Start Date: 04/12/20 Status: Ordered atenolol 100 mg oral tablet 1 tablet = 100 mg, By Mouth, 2 times a day, 0 Refills, Maintenance, 10/05/16 9:40:42 Start Date: 10/05/16 Stop Date: 11/07/16 Status: Ordered atorvastatin 20 mg oral tablet 1 tablet, By Mouth, Daily, # 90 tablet, 1 Refills, [facility] #00131, 168, cm, 11/13/20 13:18:00 EDT, Height, 94.4, [...] day, # 1 each, 5 Refills, Maintenance, [place] Start Date: 03/15/13 Stop Date: 09/11/13 Status: Ordered furosemide 20 mg oral tablet 40 mg, 2, tablet, By Mouth, Daily, # 180 tablet, Refills 3, Tot. Refills 3, Maintenance, 03/11/20 14:33:00 EDT, Route to Pharmacy Electronically, [facility] #[id number], 162.56, cm, 03/01/20 14:13:00 EDT, Height, 94.4, kg, 06/05/19 9:38:00 EST, D... Start Date: 03/11/20 Stop Date: 03/06/21 Status: Ordered ipratropium nasal 21 mcg/inh spray See Instructions, PRN Nasal Congestion, 1 spray each nostril BID, # 1 each, 4 Refills, Maintenance,07/17/20 12:08:00 EST, [facility] #[id number], Partial fill upon patient request if the [...] use overnight and naps from [facility], 08/15/20 12:05:00 EST, Compound Start Date: 08/15/20 [...] tablet, Refills 3, Route to Pharmacy Electronically, [facility] #[id number], 168, cm, 03/27/21 14:00:00 EDT, Height, 94.4, [...] 3 Refills, Maintenance, 04/12/20 10:50:00 EDT, Tablet, [facility] #[id number], 162.56, cm, 03/01/20 14:13:00 EDT, Height, 94.4, [...] tablet, 1 Refills, Maintenance, 04/29/21 18:47:00 EST, [facility] #[id number], 168, cm, 03/27/21 14:00:00 EDT, Height, 94.4, [...] 0 Refills, Maintenance, 10/30/19 13:41:00 EDT, Tablet, [facility] #[id number], 162.56, cm, 08/17/19 16:32:00 EST, Height, 94.4, [...]
--- OUTSIDE RECORDS SUMMARY | 2022-11-22 21:28 | XMS_ITS | Continuity of Care Document ---
Author Name Unknown Organization [facility] Address [address] [place] [address]- Care Team Providers Care Mailing Jogger Name Role Phone Betito OSORIO, Debi Lizama Primary Care Physician [phone] Encounter [facility] Date(s): 10/22/22 - 11/21/22 [facility] [address] [place] [address]- [place] Allergies, Adverse Reactions, Alerts Substance Reaction [...] (oldterm) 5 08/12/09 Given 1Admin Note: [facility] 2Location History: retirement 3Result Comment: [06/04/2016] donna 4Result Comment: [04/08/2015] L&C 5Admin Note: DR. PASTOR, [place] Medications amLODIPine 10 mg oral tablet See Instructions, TAKE 1 TABLET BY MOUTH DAILY, # 90 each, 3 Refills, 09/24/21 10:21:00 EDT, [facility] #[id number], 168, cm, 09/24/21 10:10:00 EDT, Height Start [...] day, # 1 each, 5 Refills, Maintenance, [place] Start Date: 03/15/13 Stop Date: 09/11/13 Status: Ordered furosemide 40 mg oral tablet 1, tablet, By Mouth, Daily, # 90 tablet, Refills 3, Tot. Refills 3, Maintenance, 06/10/22 10:40:00 EST, Route to Pharmacy Electronically, [facility] #[id number], 168, cm, 06/10/22 10:25:00 EST, Height Start Date: 06/10/22 Status: Ordered ipratropium nasal 21 mcg/inh spray See Instructions, PRN Nasal Congestion, 1 spray each nostril BID, # 1 each, 4 Refills, Maintenance,01/01/22 16:02:00 EDT, [facility] #[id number], Partial fill upon patient request if the [...] 0, Maintenance, use overnight and naps from [facility], 08/15/20 12:05:00 EST, Compound Start Date: 08/15/20 [...] tablet, Refills 3, Route to Pharmacy Electronically, [facility] #[id number], 168, cm, 03/27/21 14:00:00 EDT, Height, 94.4, [...] 3 Refills, Maintenance, 04/12/20 10:50:00 EDT, Tablet, [facility] #98812, 162.56, cm, 03/01/20 14:13:00 EDT, Height, 94.4, [...] each, 3 Refills, Maintenance, 02/04/22 10:46:00 EDT, [facility] #43245, 168, cm, 02/04/22 10:23:00 EDT, Height Start [...] 0 Refills, Maintenance, 10/30/19 13:41:00 EDT, Tablet, [facility]39343, 162.56, cm, 08/17/19 16:32:00 EST, Height, 94.4, [...] Team Personnel Name: Marianne Perez RN Position: [facility] RN Member Role: Primary Care Nurse Name: Debi Cisse MD Position: [facility] Physician - Primary Care Member Role: PCP Address: Address: [address] [place] [address] [place] [address]- Name: Viola Gonzalez Position: [facility] Outreach Member Role: Lifetime Consulting Physician Care Team Related Persons Name: ITZEL GARCIA Name: AILYN ANDERSON Name: RAF NAVARRETE
--- OUTSIDE RECORDS SUMMARY | 2022-11-22 21:28 | XMS_ITS | Continuity of Care Document ---
Author Name Unknown Organization [facility] Address [address] [place] [address]- Care Team Providers Care Media Services Director Name Role Phone Betito OSORIO, Debi Lizama Primary Care Physician Encounter [facility] Date(s): 05/15/22 - [facility]14/[facility] [address] [place] [address]- [place] Allergies, Adverse Reactions, Alerts Substance Reaction Severity Status Active Other Food Allergy 1 SWELLING OF [...] (oldterm) 5 08/12/09 Given 1Admin Note: [facility] 2Location History: intermediate 3Result Comment: [06/04/2016] donna 4Result Comment: [04/08/2015] L&C 5Admin Note: DR. PASTOR, [place] Medications amLODIPine 10 mg oral tablet See Instructions, TAKE 1 TABLET BY MOUTH DAILY, # 90 each, 3 Refills, 09/24/21 10:21:00 EDT, [facility] #[id number], 168, cm, 09/24/21 10:10:00 EDT, Height Start [...] Stop 09/19/22 10:25:00 EDT, 09/24/21 10:25:00 EDT, [facility] #56585, 168, cm, 09/24/21 10:10:00 EDT, Height Start [...] day, # 1 each, 5 Refills, Maintenance, [place] Start Date: 03/15/13 Stop Date: 09/11/13 Status: Ordered furosemide 40 mg oral tablet 1, tablet, By Mouth, Daily, # 90 tablet, Refills 3, Tot. Refills 3, Maintenance, 06/10/22 10:40:00 EST, Route to Pharmacy Electronically, [facility] #[id number], 168, cm, 06/10/22 10:25:00 EST, Height Start Date: 06/10/22 Status: Ordered ipratropium nasal 21 mcg/inh spray See Instructions, PRN Nasal Congestion, 1 spray each nostril BID, # 1 each, 4 Refills, Maintenance,01/01/22 16:02:00 EDT, [facility] #[id number], Partial fill upon patient request if the [...] 0, Maintenance, use overnight and naps from [facility], 08/15/20 12:05:00 EST, Compound Start Date: [...] tablet, Refills 3, Route to Pharmacy Electronically, [facility] #[id number], 168, cm, 03/27/21 14:00:00 EDT, Height, 94.4, [...] 3 Refills, Maintenance, 04/12/20 10:50:00 EDT, Tablet, [facility] #93170, 162.56, cm, 03/01/20 14:13:00 EDT, Height, 94.4, [...] each, 3 Refills, Maintenance, 02/04/22 10:46:00 EDT, [facility] #96891, 168, cm, 02/04/22 10:23:00 EDT, Height Start [...] 0 Refills, Maintenance, 10/30/19 13:41:00 EDT, Tablet, [facility] #10504, 162.56, cm, 08/17/19 16:32:00 EST, Height, 94.4, [...] Team Personnel Name: Marianne Perez RN Position: [facility] RN Member Role: Primary Care Nurse Name: Debi Cisse MD Position: [facility] Primary Care Physician Member Role: PCP Address: Address: [address] [place] [address] Adult [place], [place] [address] Name: Viola Gonzalez Position: [facility] Outreach Member Role: Lifetime Consulting Physician Care Team Related Persons Name: ITZEL GARCIA Name: AILYN ANDERSON Name: RAF NAVARRETE
--- OUTSIDE RECORDS SUMMARY | 2022-11-22 21:28 | XMS_ITS | Continuity of Care Document ---
Author Name Unknown Organization [facility] Address [address] [place] [address]- Care Team Providers Care Operations Officer Name Role Phone Betito OSORIO, Debi Lizama Primary Care Physician [phone] Encounter [facility] Date(s): 05/16/20 - 06/21/[address] [address] Attending Physician: Mica Diop MD Admitting Physician: Mica Diop MD Referring Physician: Mica Diop MD Allergies, Adverse Reactions, Alerts Substance Reaction [...] Vacc (oldterm) 5 08/12/09 Given 1Admin Note: [facility] 2Location History: fdc 3Result Comment: [06/04/2016] donna 4Result Comment: [04/08/2015] L&C 5Admin Note: DR. PASTOR, [facility] amLODIPine 10 mg oral tablet 1 tablet, By Mouth, Daily, # 90 tablet, 3 Refills, Maintenance, 04/12/20 10:49:00 EDT, [facility] #26293, 162.56, cm, 03/01/20 14:13:00 EDT, Height, 94.4, [...] 3 Refills, Maintenance, 09/20/19 11:46:00 EDT, Tablet, [facility] #23804, 162.56, cm, 08/17/19 16:32:00 EST, Height, 94.4, [...] Gm, 3 Refills, Maintenance, 05/22/20 16:20:00 EST, [facility] #81750, 162.56, cm, 05/13/20 15:07:00 EST, Height, 94.4, kg,06/05/19 9:38:00 EST, Dry Weight Start Date: 05/22/20 Status: Ordered ferrous sulfate 325 mg oral tablet 1 tablet = 325 mg, By Mouth, 3 times a day, May take once daily and increase to 3 times a day if tolerated; take with vitamin C, # 90 tablet, 2 Refills, Maintenance, 08/18/19 13:10:00 EST, Tablet, [facility] #76659, 162.56, cm, 08/17/19 16:3... Start Date: 08/18/19 Status: Ordered fluticasone 50 mcg/inh nasal spray 1 sprays, Nares, Both, 2 times a day, # 1 each, 5 Refills, Maintenance, [place] Start Date: 03/15/13 Stop Date: 09/11/13 Status: Ordered furosemide 20 mg oral tablet 40 mg, 2, tablet, By Mouth, Daily, # 180 tablet, Refills 3, Tot. Refills 3, Maintenance, 03/11/20 14:33:00 EDT, Route to Pharmacy Electronically, [facility] #67885, 162.56, cm, 03/01/20 14:13:00 EDT, Height, 94.4, [...] 8 supp, 5 Refills, Maintenance, 04/29/20 12:11:00EST, [facility], Partial fill upon patient request, [...] 05/13/20 10:26:00 EST, Route to Pharmacy Electronically, [facility] #89259, 162.56, cm, 04/15/20 14:37:00 EST, Height, 94.4, [...] 3 Refills, Maintenance, 04/12/20 10:50:00 EDT, Tablet, [facility] #87445, 162.56, cm, 03/01/20 14:13:00 EDT, Height, 94.4, [...] 10/24/20 16:37:00 EDT, 04/27/20 16:37:00 EST, Tablet, [facility] #[id number], 162.56, cm, 04/15/20 14:37:00 EST, Height, 94.4, [...] 0 Refills, Maintenance, 10/30/19 13:41:00 EDT, Tablet, [facility] #37318, 162.56, cm, 08/17/19 16:32:00 EST, Height, 94.4, [...]
--- OUTSIDE RECORDS SUMMARY | 2022-11-22 21:28 | XMS_ITS | Continuity of Care Document ---
Author Name Unknown Organization [facility] Address [address] [place] [address]- Care Team Providers Care Card Reader Name Role Phone Betito OSORIO, Debi Lizama Primary Care Physician [phone] Encounter [facility] Date(s): 03/27/21 - 04/26/21 [facility] [address] [address]- Attending Physician: Josy Morgan Admitting Physician: Josy Morgan Referring Physician: Josy Morgan Allergies, Adverse Reactions, Alerts Substance Reaction Severity [...] (oldterm) 5 08/12/09 Given 1Admin Note: [facility] 2Location History: half-way 3Result Comment: [06/04/2016] donna 4Result Comment: [04/08/2015] L&C 5Admin Note: DR. PASTOR, [place] Medications amLODIPine 10 mg oral tablet 1 tablet, By Mouth, Daily, # 90 tablet, 3 Refills, Maintenance, 04/12/20 10:49:00 EDT, [facility] #[id number], 162.56, cm, 03/01/20 14:13:00 EDT, Height, 94.4, kg, 06/05/19 9:38:00 EST, Dry Weight Start Date: 04/12/20 Status: Ordered atenolol 100 mg oral tablet 1 tablet = 100 mg, By Mouth, 2 times a day, 0 Refills, Maintenance, 10/05/16 9:40:42 Start Date: 10/05/16 Stop Date: 11/07/16 Status: Ordered atorvastatin 20 mg oral tablet 1 tablet, By Mouth, Daily, # 90 tablet, 1 Refills, [facility] #07607, 168, cm, 11/13/20 13:18:00 EDT, Height, 94.4, [...] day, # 1 each, 5 Refills, Maintenance, [place] Start Date: 03/15/13 Stop Date: 09/11/13 Status: Ordered furosemide 20 mg oral tablet 40 mg, 2, tablet, By Mouth, Daily, # 180 tablet, Refills 3, Tot. Refills 3, Maintenance, 03/11/20 14:33:00 EDT, Route to Pharmacy Electronically, [facility] #91103, 162.56, cm, 03/01/20 14:13:00 EDT, Height, 94.4, kg, 06/05/19 9:38:00 EST, D... Start Date: 03/11/20 Stop Date: 03/06/21 Status: Ordered ipratropium nasal 21 mcg/inh spray See Instructions, PRN Nasal Congestion, 1 spray each nostril BID, # 1 each, 4 Refills, Maintenance,07/17/20 12:08:00 EST, [facility] #36978, Partial fill upon patient request if the [...] tablet, Refills 3, Route to Pharmacy Electronically, [facility] #37750, 168, cm, 03/27/21 14:00:00 EDT, Height, 94.4, kg, 12/23/19 9:38:00 EST, DryWeight Start Date: 04/04/21 Status: [...] 3 Refills, Maintenance, 04/12/20 10:50:00 EDT, Tablet, [facility] #82937, 162.56, cm, 03/01/20 14:13:00 EDT, Height, 94.4, [...] TWICE DAILY, # 60 tablet, 0 Refills, [facility] #41189, 168, cm, 03/27/21 14:00:00 EDT, Height, 94.4, [...] 0 Refills, Maintenance, 10/30/19 13:41:00 EDT, Tablet, [facility] #56549, 162.56, cm, 08/17/19 16:32:00 EST, Height, 94.4, [...]
--- OUTSIDE RECORDS SUMMARY | 2022-11-22 21:28 | XMS_ITS | Continuity of Care Document ---
Author Name Unknown Organization [facility] Address [address], [address] [place] [address]- Care Team Providers Care Substation Engineer Name Role Phone Betito OSORIO, Debi Lizama Primary Care Physician Encounter [facility] Date(s): 07/28/22 - 08/27/22 [facility] [address], [address]th [place] [address]- Allergies, Adverse Reactions, Alerts Substance Reaction Severity Status Active Shrimp MOUTH SWELLED Active Other Food [...] Vacc (oldterm) 5 08/12/09 Given 1Admin Note: [facility] 2Location History: long term 3Result Comment: [06/04/2016] donna 4Result Comment: [04/08/2015] L&C 5Admin Note: DR. PASTOR, [place] Medications amLODIPine 10 mg oral tablet See Instructions, TAKE 1 TABLET BY MOUTH DAILY, # 90 each, 3 Refills, 09/24/21 10:21:00 EDT, [facility] #62802, 168, cm, 09/24/21 10:10:00 EDT, Height Start [...] Stop 09/19/22 10:25:00 EDT, 09/24/21 10:25:00 EDT, [facility] #07011, 168, cm, 09/24/21 10:10:00 EDT, Height Start [...] Acute 08/07/23 16:53:00 EST, 08/06/22 16:53:00EST, Ointment, [facility] #38622, Partial fill upon patient request if the [...] day, # 1 each, 5 Refills, Maintenance, [place] Start Date: 03/15/13 Stop Date: 09/11/13 Status: Ordered furosemide 40 mg oral tablet 1, tablet, By Mouth, Daily, # 90 tablet, Refills 3, Tot. Refills 3, Maintenance, 06/10/22 10:40:00 EST, Route to Pharmacy Electronically, [facility] #38604, 168, cm, 06/10/22 10:25:00 EST, Height Start Date: 06/10/22 Status: Ordered ipratropium nasal 21 mcg/inh spray See Instructions, PRN Nasal Congestion, 1 spray each nostril BID, # 1 each, 4 Refills, Maintenance,01/01/22 16:02:00 EDT, [facility] #42428, Partial fill upon patient request if the [...] use overnight and naps from [facility], 08/15/20 12:05:00 EST, Compound Start [...] tablet, Refills 3, Route to Pharmacy Electronically, [facility] #53967, 168, cm, 03/27/21 14:00:00 EDT, Height, 94.4, [...] 3 Refills, Maintenance, 04/12/20 10:50:00 EDT, Tablet, [facility] #25294, 162.56, cm, 03/01/20 14:13:00 EDT, Height, 94.4, [...] each, 3 Refills, Maintenance, 02/04/22 10:46:00 EDT, [facility] #53740, 168, cm, 02/04/22 10:23:00 EDT, Height Start [...] 0 Refills, Maintenance, 10/30/19 13:41:00 EDT, Tablet, [facility] #64008, 162.56, cm, 08/17/19 16:32:00 EST, Height, 94.4, [...] Major depressive disorder, recurrent, mild Confirmed Active CAREMN on CPAP Confirmed Active Resting tremor Confirmed Active Restless leg syndrome Confirmed Active Unspecified Idiopathic Peripheral Neuropathy Confirmed 09/02/10 Active Urinary incontinence Confirmed Active Social History Social History Type Response Smoking Status Former smoker entered on: 10/04/14 Sex Patient Care team information Care Team Personnel Name: Ana YAP, Marianne Position: [facility] RN Member Role: Primary Care Nurse Name: Debi Cisse MD Position: [facility] Primary Care Physician Member Role: PCP Address: Address: [address] [place] [address] Adult [place], [place] [address] Name: Viola Gonzalez Position: [facility] Outreach Member Role: Lifetime Consulting Physician Care Team Related Persons Name: ITZEL GARCIA Name: AILYN ANDERSON Name: RAF NAVARRETE
--- OUTSIDE RECORDS SUMMARY | 2022-11-22 21:28 | XMS_ITS | Continuity of Care Document ---
Author Name Unknown Organization [facility] Address [address] [place] [address]- Care Team Providers Care Creasing And Cutting Press Feeder Name Role Phone Debi Cisse MD Primary Care Physician Encounter [facility] Date(s): 03/27/21 - 04/03/21 [facility] [address] [place] [address]- Attending Physician: Debi Cisse MD Allergies, Adverse Reactions, Alerts Substance Reaction Severity Status ciprofloxacin Itchy Active phenobarbital Active Shrimp MOUTH SWELLED Active Other Food [...] Note: [facility] 2Location History: senior care 3Result Comment: [06/04/2016] donna 4Result Comment: [04/08/2015] L&C 5Admin Note: DR. PASTOR, [place] Medications amLODIPine 10 mg oral tablet 1 tablet, By Mouth, Daily, # 90 tablet, 3 Refills, Maintenance, 04/12/20 10:49:00 EDT, [facility] #[id number], 162.56, cm, 03/01/20 14:13:00 EDT, Height, 94.4, kg, 06/05/19 9:38:00 EST, Dry Weight Start Date: 04/12/20 Status: Ordered atenolol 100 mg oral tablet 1 tablet = 100 mg, By Mouth, 2 times a day, 0 Refills, Maintenance, 10/05/16 9:40:42 Start Date: 10/05/16 Stop Date: 11/07/16 Status: Ordered atorvastatin 20 mg oral tablet 1 tablet, By Mouth, Daily, # 90 tablet, 1 Refills, [facility] #76771, 168, cm, 11/13/20 13:18:00 EDT, Height, 94.4, [...] day, # 1 each, 5 Refills, Maintenance, [place] Start Date: 03/15/13 Stop Date: 09/11/13 Status: Ordered furosemide 20 mg oral tablet 40 mg, 2, tablet, By Mouth, Daily, # 180 tablet, Refills 3, Tot. Refills 3, Maintenance, 03/11/20 14:33:00 EDT, Route to Pharmacy Electronically, [facility] #[id number], 162.56, cm, 03/01/20 14:13:00 EDT, Height, 94.4, kg, 06/05/19 9:38:00 EST, D... Start Date: 03/11/20 Stop Date: 03/06/21 Status: Ordered ipratropium nasal 21 mcg/inh spray See Instructions, PRN Nasal Congestion, 1 spray each nostril BID, # 1 each, 4 Refills, Maintenance,07/17/20 12:08:00 EST, [facility] #[id number], Partial fill upon patient request if the [...] 10/07/20 8:20:00 EDT, Route to Pharmacy Electronically, [facility] #[id number], 168, cm, 05/23/20 10:09:00 EST, Height, 94.4, [...] 3 Refills, Maintenance, 04/12/20 10:50:00 EDT, Tablet, [facility] #[id number], 162.56, cm, 03/01/20 14:13:00 EDT, Height, 94.4, [...] TWICE DAILY, # 60 tablet, 0 Refills, [facility] #75055, 168, cm, 03/27/21 14:00:00 EDT, Height, 94.4, [...] 0 Refills, Maintenance, 10/30/19 13:41:00 EDT, Tablet, [facility] #70173, 162.56, cm, 08/17/19 16:32:00 EST, Height, 94.4, [...] oldest [Reference Range]: 1 Height 168 cm (03/27/21 2:00 PM) Oxygen Saturation [94-100 %] 98 % (03/27/21 2:00 PM) Pulse Rate [55-90 bpm] 78 bpm (03/27/21 2:00 PM) Blood Pressure [90-138/55-84 mm Hg] 126/ 78mm Hg (03/27/21 2:00 PM) Temperature [96.8-100.4 DegF] 96.9 DegF (03/27/21 2:00 PM) Blood pressure sites Arm, left (03/27/21 2:00 PM) Temperature Route Temporal (03/27/21 2:00 PM) Social History Social History Type Response Smoking Status Former smoker entered on: 10/04/14 Sex
--- OUTSIDE RECORDS SUMMARY | 2022-11-22 21:29 | XMS_ITS | Continuity of Care Document ---
Author Name Unknown Organization [facility] Address [address] [place] [address]- Care Team Providers Care Customer Service Technician Name Role Phone Betito OSORIO, Debi Lizama Primary Care Physician [phone] Encounter [facility] Date(s): 04/10/22 - 05/10/22 [facility] [address] [place] [address]- [place] Allergies, Adverse Reactions, Alerts Substance Reaction [...] Vacc (oldterm) 5 08/12/09 Given 1Admin Note: [facility] 2Location History: long term 3Result Comment: [06/04/2016] donna 4Result Comment: [04/08/2015] L&C 5Admin Note: DR. PASTOR, [place] Medications amLODIPine 10 mg oral tablet See Instructions, TAKE 1 TABLET BY MOUTH DAILY, # 90 each, 3 Refills, 09/24/21 10:21:00 EDT, [facility] #[id number], 168, cm, 09/24/21 10:10:00 EDT, Height Start [...] Stop 09/19/22 10:25:00 EDT, 09/24/21 10:25:00 EDT, [facility] #60668, 168, cm, 09/24/21 10:10:00 EDT, Height Start [...] day, # 1 each, 5 Refills, Maintenance, [place] Start Date: 03/15/13 Stop Date: 09/11/13 Status: [...] 1 each, 4 Refills, Maintenance,01/01/22 16:02:00 EDT, [facility] #59486, Partial fill upon patient request if the [...] use overnight and naps from [facility], 08/15/20 12:05:00 EST, [place] Start Date: [...] tablet, Refills 3, Route to Pharmacy Electronically, [facility] #85461, 168, cm, 03/27/21 14:00:00 EDT, Height, 94.4, [...] 3 Refills, Maintenance, 04/12/20 10:50:00 EDT, Tablet, [facility] #78183, 162.56, cm, 03/01/20 14:13:00 EDT, Height, 94.4, [...] each, 3 Refills, Maintenance, 02/04/22 10:46:00 EDT, [facility] #87450, 168, cm, 02/04/22 10:23:00 EDT, Height Start [...] 0 Refills, Maintenance, 10/30/19 13:41:00 EDT, Tablet, [facility] #70425, 162.56, cm, 08/17/19 16:32:00 EST, Height, 94.4, [...] Team Personnel Name: Marianne Perez RN Position: [facility] RN Member Role: Primary Care Nurse Name: Debi Cisse MD Position: [facility] Primary Care Physician Member Role: PCP Address: Address: [address] [place] [address] Adult [place], [place] [address] Name: Viola Gonzalez Position: [facility] Outreach Member Role: Lifetime Consulting Physician Care Team Related Persons Name: ITZEL GARCIA Name: AILYN ANDERSON Name: RAF NAVARRETE
--- OUTSIDE RECORDS SUMMARY | 2022-11-22 21:29 | XMS_ITS | Continuity of Care Document ---
Author Name Unknown Organization [facility] Address [address], [address] [place] [address]- Care Team Providers Care Hat Marker Name Role Phone Betito OSORIO, Debi Lizama Primary Care Physician [place] [facility] [place]s): 08/19/22 - 11/20/22 [facility] [address], [address] [place] [address]- Attending Physician: Rani OSORIO, Rina Kallie Allergies, Adverse Reactions, Alerts Substance Reaction [...] Vacc (oldterm) 5 08/12/09 Given 1Admin Note: [facility] 2Location History: correction 3Result Comment: [06/04/2016] donna 4Result Comment: [04/08/2015] L&C 5Admin Note: DR. PASTOR, [place] Medications amLODIPine 10 mg oral tablet See Instructions, TAKE 1 TABLET BY MOUTH DAILY, # 90 each, 3 Refills, 09/24/21 10:21:00 EDT, [facility] #[id number], 168, cm, 09/24/21 10:10:00 EDT, Height Start [...] day, # 1 each, 5 Refills, Maintenance, [place] Start Date: 03/15/13 Stop Date: 09/11/13 Status: Ordered furosemide 40 mg oral tablet 1, tablet, By Mouth, Daily, # 90 tablet, Refills 3, Tot. Refills 3, Maintenance, 06/10/22 10:40:00 EST, Route to Pharmacy Electronically, [facility] #53234, 168, cm, 06/10/22 10:25:00 EST, [place] Start Date: 06/10/22 Status: Ordered ipratropium nasal 21 mcg/inh spray See Instructions, PRN Nasal Congestion, 1 spray each nostril BID, # 1 each, 4 Refills, Maintenance,01/01/22 16:02:00 EDT, [facility] #71594, Partial fill upon patient request if the [...] tablet, Refills 3, Route to Pharmacy Electronically, [facility] #29069, 168, cm, 03/27/21 14:00:00 EDT, Height, 94.4, [...] 3 Refills, Maintenance, 04/12/20 10:50:00 EDT, Tablet, [facility] #59138, 162.56, cm, 03/01/20 14:13:00 EDT, Height, 94.4, [...] each, 3 Refills, Maintenance, 02/04/22 10:46:00 EDT, [facility] #98827, 168, cm, 02/04/22 10:23:00 EDT, Height Start [...] Refills, Maintenance, 10/30/19 13:41:00 EDT, Tablet, [facility] #91367, 162.56, cm, 08/17/19 16:32:00 EST, Height, 94.4, [...] Debi Cisse MD Position: [facility] Physician - Primary Care Member Role: PCP Address: Address: [address] [place] [address] [place] [address]- Name: Viola Gonzalez Position: [facility] Outreach Member Role: Lifetime Consulting Physician Care Team Related Persons Name: ITZEL GARCIA Name: AILYN ANDERSON Name: RAF NAVARRETE
--- OUTSIDE RECORDS SUMMARY | 2022-11-22 21:29 | XMS_ITS | Continuity of Care Document ---
Author Name Unknown Organization [facility] Address [address] [place] [address]- Care Team Providers Care Supervisor Tower Name Role Phone Betito OSORIO, Debi Lizama Primary Care Physician [place] [facility] [place]01[place] - 01/31/[place] [facility] [address] [address] Attending Physician: Josy Morgan Admitting Physician: Josy [...] Vacc (oldterm) 5 08/12/09 Given 1Admin Note: [facility] 2Location History: correction 3Result Comment: [06/04/2016] donna 4Result Comment: [04/08/2015] L&C 5Admin Note: DR. PASTOR, [place] Medications amLODIPine 10 mg oral tablet See Instructions, TAKE 1 TABLET BY MOUTH DAILY, # 90 each, 3 Refills, 09/24/21 10:21:00 EDT, [facility] #09963, 168, cm, 09/24/21 10:10:00 EDT, Height Start [...] Stop 09/19/22 10:25:00 EDT, 09/24/21 10:25:00 EDT, [facility] #41535, 168, cm, 09/24/21 10:10:00 EDT, Height Start [...] day, # 1 each, 5 Refills, Maintenance, [place] Start Date: 03/15/13 Stop Date: 09/11/13 Status: Ordered furosemide 20 mg oral tablet 40 mg, 2, tablet, By Mouth, Daily, # 180 tablet, Refills 3, Tot. Refills 3, Maintenance, 03/11/20 14:33:00 EDT, Route to Pharmacy Electronically, [facility] #40334, 162.56, cm, 03/01/20 14:13:00 EDT, Height, 94.4, kg, 06/05/19 9:38:00 EST D... Start Date: 03/11/20 Stop Date: 03/06/21 Status: Ordered ipratropium nasal 21 mcg/inh spray See Instructions, PRN Nasal Congestion, 1 spray each nostril BID, # 1 each, 4 Refills, Maintenance,01/01/22 16:02:00 EDT, [facility] #35908, Partial fill upon patient request if the [...] 0, Maintenance, use overnight and naps from [facility], 08/15/20 12:05:00 EST, Compound Start [...] tablet, Refills 3, Route to Pharmacy Electronically, [facility] #77113, 168, cm, 03/27/21 14:00:00 EDT, Height, 94.4, [...] 3 Refills, Maintenance, 04/12/20 10:50:00 EDT, Tablet, [facility] #[id number], 162.56, cm, 03/01/20 14:13:00 EDT, Height, 94.4, [...] tablet, 1 Refills, Maintenance, 09/24/21 10:21:00 EDT, [facility] #28230, 168, cm, 09/24/21 10:10:00 EDT, Height Start [...] 0 Refills, Maintenance, 10/30/19 13:41:00 EDT, Tablet, [facility] #62185, 162.56, cm, 08/17/19 16:32:00 EST, Height, 94.4, [...]
--- OUTSIDE RECORDS SUMMARY | 2022-11-22 21:29 | XMS_ITS | Continuity of Care Document ---
Author Name Unknown Organization [facility] Address [address] [place] [address]- Care Team Providers Care Rotary Soil Stabilizer Operator Name Role Phone Betito OSORIO, Debi Lizama Primary Care Physician Encounter [facility] Date(s): 05/14/22 - 06/13/22 [facility] [address] [place] [address]- [place] Allergies, Adverse Reactions, Alerts Substance Reaction [...] Re corded influenza virus vaccine, inactivated 02/26/16 Agutsín rded influenza virus vaccine, inactivated 4 02/22/15 Re corded pneumococcal 13-valent vaccine 10/04/14 Given FluLaval (oldterm) 06/24/12 Given tetanus/diphtheria/pertussis, acel(Tdap) 01/29/11 Given Pneumococcal Vacc (oldterm) 5 08/12/09 Given 1Admin Note: [facility] 2Location History: longterm 3Result Comment: [06/04/2016] donna 4Result Comment: [04/08/2015] L&C 5Admin Note: DR. PASTOR, [place] Medications amLODIPine 10 mg oral tablet See Instructions, TAKE 1 TABLET BY MOUTH DAILY, # 90 each, 3 Refills, 09/24/21 10:21:00 EDT, [facility] #[id number], 168, cm, 09/24/21 10:10:00 EDT, Height Start [...] Stop 09/19/22 10:25:00 EDT, 09/24/21 10:25:00 EDT, [facility] #[id number], 168, cm, 09/24/21 10:10:00 EDT, Height Start [...] day, # 1 each, 5 Refills, Maintenance, [place] Start Date: 03/15/13 Stop Date: 09/11/13 Status: Ordered furosemide 40 mg oral tablet 1, tablet, By Mouth, Daily, # 90 tablet, Refills 3, Tot. Refills 3, Maintenance, 06/10/22 10:40:00 EST, Route to Pharmacy Electronically, [facility] #[id number], 168, cm, 06/10/22 10:25:00 EST, Height Start Date: 06/10/22 Status: Ordered ipratropium nasal 21 mcg/inh spray See Instructions, PRN Nasal Congestion, 1 spray each nostril BID, # 1 each, 4 Refills, Maintenance,01/01/22 16:02:00 EDT, [facility] #24831, Partial fill upon patient request if the [...] 0, Maintenance, use overnight and naps from [facility], 08/15/20 12:05:00 EST, Compound [...] Refills 3, Route to Pharmacy Electronically, [facility] #[id number], 168, cm, 03/27/21 14:00:00 EDT, Height, 94.4, [...] Refills, Maintenance, 04/12/20 10:50:00 EDT, Tablet, [facility] #49049, 162.56, cm, 03/01/20 14:13:00 EDT, Height, 94.4, [...] 3 Refills, Maintenance, 02/04/22 10:46:00 EDT, [facility] #18627, 168, cm, 02/04/22 10:23:00 EDT, Height Start [...] 0 Refills, Maintenance, 10/30/19 13:41:00 EDT, Tablet, [facility] #08111, 162.56, cm, 08/17/19 16:32:00 EST, Height, 94.4, [...] Team Personnel Name: Marianne Perez RN Position: [facility] RN Member Role: Primary Care Nurse Name: Debi Cisse MD Position: [facility] Primary Care Physician Member Role: PCP Address: Address: [address] [place] [address] Adult [place], [place] [address] Name: Viola Gonzalez Position: [facility] Outreach Member Role: Lifetime Consulting Physician Care Team Related Persons Name: ITZEL GARCIA Name: AILYN ANDERSON Name: RAF NAVARRETE
--- OUTSIDE RECORDS SUMMARY | 2022-11-22 21:29 | XMS_ITS | Continuity of Care Document ---
Author Name Unknown Organization [facility] Address [address] [place] [address]- Care Team Providers Care Lump Machine Operator Name Role Phone Betito OSORIO, Debi Lizama Primary Care Physician Encounter [facility] Date(s): 07/27/22 - 08/26/22 [facility] [address] [place] [address] [place] Allergies, Adverse Reactions, Alerts Substance Reaction [...] Given 1Admin Note: [place] 2Location History: residential 3Result Comment: [06/04/2016] donna 4Result Comment: [04/08/2015] L&C 5Admin Note: DR. PASTOR, [place] Medications amLODIPine 10 mg oral tablet See Instructions, TAKE 1 TABLET BY MOUTH DAILY, # 90 each, 3 Refills, 09/24/21 10:21:00 EDT, [facility] #61863, 168, cm, 09/24/21 10:10:00 EDT, Height Start [...] Stop 09/19/22 10:25:00 EDT, 09/24/21 10:25:00 EDT, [facility] #11015, 168, cm, 09/24/21 10:10:00 EDT, Height Start [...] Acute 08/07/23 16:53:00 EST, 08/06/22 16:53:00EST, Ointment, [facility] #08883, Partial fill upon patient request if the [...] day, # 1 each, 5 Refills, Maintenance, [place] Start Date: 03/15/13 Stop Date: 09/11/13 Status: Ordered furosemide 40 mg oral tablet 1, tablet, By Mouth, Daily, # 90 tablet, Refills 3, Tot. Refills 3, Maintenance, 06/10/22 10:40:00 EST, Route to Pharmacy Electronically, [facility] #[id number], 168, cm, 06/10/22 10:25:00 EST, Height Start Date: 06/10/22 Status: Ordered ipratropium nasal 21 mcg/inh spray See Instructions, PRN Nasal Congestion, 1 spray each nostril BID, # 1 each, 4 Refills, Maintenance,01/01/22 16:02:00 EDT, [facility] #54937, Partial fill upon patient request if the [...] use overnight and naps from [facility], 08/15/20 12:05:00 EST, Compound Start Date: 08/15/20 [...] tablet, Refills 3, Route to Pharmacy Electronically, [facility] #17623, 168, cm, 03/27/21 14:00:00 EDT, Height, 94.4, [...] 3 Refills, Maintenance, 04/12/20 10:50:00 EDT, Tablet, [facility] #62391, 162.56, cm, 03/01/20 14:13:00 EDT, Height, 94.4, [...] each, 3 Refills, Maintenance, 02/04/22 10:46:00 EDT, [facility] #92431, 168, cm, 02/04/22 10:23:00 EDT, Height Start [...] 0 Refills, Maintenance, 10/30/19 13:41:00 EDT, Tablet, [facility] #[id number], 162.56, cm, 08/17/19 16:32:00 EST, Height, 94.4, [...] Team Personnel Name: Marianne Perez RN Position: [facility] RN Member Role: Primary Care Nurse Name: Debi Cisse MD Position: [facility] Primary Care Physician Member Role: PCP Address: Address: [address] [place] [address] Adult [place], [place] [address] Name: Viola Gonzalez Position: [facility] Outreach Member Role: Lifetime Consulting Physician Care Team Related Persons Name: ITZEL GARCIA Name: AILYN ANDERSON Name: RAF NAVARRETE
--- OUTSIDE RECORDS SUMMARY | 2022-11-22 21:29 | XMS_ITS | Continuity of Care Document ---
Author Name Unknown Organization [facility] Address [address] [place] [address]- Care Team Providers Care Pest Management Supervisor Name Role Phone Debi Cisse MD Primary Care Physician Encounter [facility] Date(s): 07/18/19 - 11/15/19 [facility] [address] [place] [address]- Attending Physician: Debi Cisse MD Allergies, Adverse [...] Comment: [04/08/2015] L&C 4Admin Note: [facility] 5Admin Note: DR. PASTOR, [place] Medications amLODIPine 10 mg oral tablet 10 mg, 1, tablet, By Mouth, Daily, # 90 tablet, Refills 3, Tot. Refills 3, Maintenance, 04/13/19 15:01:39 EDT, Route to Pharmacy Electronically, [id number], [facility] #[id number] Start Date: 04/13/19 Status: Ordered atenolol 100 mg oral tablet 1 tablet = 100 mg, By Mouth, 2 times a day, 0 Refills, Maintenance, 10/05/16 9:40:42 Start Date: 10/05/16 Stop Date: 11/07/16 Status: Ordered atorvastatin 20 mg oral tablet 1 tablet = 20 mg, By Mouth, Daily, # 90 tablet, 3 Refills, Maintenance, 09/20/19 11:46:00 EDT, Tablet, [facility] #52122, 162.56, cm, 08/17/19 16:32:00 EST, Height, 94.4, kg, 06/05/19 9:38:00 EST, Dry Weight Start Date: 09/20/19 Status: Ordered baclofen 10 mg oral tablet 20 mg, 2, tablet, By Mouth, Daily, # 180 tablet, Refills 3, Tot. Refills 3, Maintenance, 12/29/18 10:23:44 EDT, Route to Pharmacy Electronically, [id number], [facility] [address] Start Date: 12/29/18 Stop Date: 12/24/19 Status: [...] Acute 03/31/20 13:44:00 EDT, 10/30/19 13:42:00 EDT, [facility] #76768, 162.56, cm, 08/17/19 16:32:00 EST, Height, 94.4, [...] 2 Refills, Maintenance, 08/18/19 13:10:00 EST, Tablet, [facility] #46000, 162.56, cm, 08/17/19 16:3... Start Date: 08/18/19 Status: Ordered fluticasone 50 mcg/inh nasal spray 1 sprays, Nares, Both, 2 times a day, # 1 each, 5 Refills, Maintenance, [place] Start Date: 03/15/13 Stop Date: 09/11/13 Status: Ordered furosemide 20 mg oral tablet 40 mg, 2, tablet, By Mouth, Daily, # 180 tablet, Refills 3, Tot. Refills 3, Maintenance, 03/24/19 8:27:15 EDT, Route to Pharmacy Electronically, [id number], [facility] #54424 Start Date: 03/24/19 Stop Date: 03/18/20 Status: [...] supp, 1 Refills, Maintenance, 06/05/19 11:07:00 EST, [facility] #60723, 162.56, cm, 06/05/19 9:38:00EST, Height, 94.4, kg, [...] 09/19/19 7:36:00 EDT, Route to Pharmacy Electronically, [facility] #65036, 162.56, cm, 08/17/19 16:32:00 EST, Height, 94.4, [...] 04/27/20 16:37:00 EST, 10/30/19 16:37:00 EDT, Tablet, [facility] #85492, 162.56, cm, 10/30/19 13:47:00 EDT, Height, 94.4, [...] Start Date: 04/23/16 Status: Ordered nystatin topical 399554 u/gm powder 1 application, Topically, 3 times a day, for 30 days, # 120 Gm, 1 Refills, Acute 12/26/19 10:17:00 EDT, 10/27/19 10:17:00 EDT, Powder, [facility] #64897, 1 application Topically 3 times a day,x30 [...] 0 Refills, Maintenance, 10/30/19 13:41:00 EDT, Tablet, [facility] #29364, 162.56, cm, 08/17/19 16:32:00 EST, Height, 94.4, [...]
--- OUTSIDE RECORDS SUMMARY | 2022-11-22 21:29 | XMS_ITS | Continuity of Care Document ---
Author Name Unknown Organization [email or web address] Address [address] [place] [address]- Care Team Providers Care Yard General Car Supervisor Name Role Phone Betito OSORIO, Debi Lizama Primary Care Physician [phone] Encounter [facility] NBR [id number] Date(s): 04/08/22 - 05/08/22 [email or web address] [address] [place] [address]- Attending Physician: Josy Morgan Admitting Physician: Josy Morgan Referring Physician: AdmtrJosy Allergies, Adverse Reactions, Alerts Substance Reaction Severity Status phenobarbital Active Lobster BLOODY STOOLS Active Other [...] Given 1Admin Note: [facility] 2Location History: nursing home 3Result Comment: [06/04/2016] donna 4Result Comment: [04/08/2015] L&C 5Admin Note: DR. PASTOR, [place] Medications amLODIPine 10 mg oral tablet See Instructions, TAKE 1 TABLET BY MOUTH DAILY, # 90 each, 3 Refills, 09/24/21 10:21:00 EDT, [facility] #01007, 168, cm, 09/24/21 10:10:00 EDT, Height Start [...] Stop 09/19/22 10:25:00 EDT, 09/24/21 10:25:00 EDT, [facility] #08487, 168, cm, 09/24/21 10:10:00 EDT, Height Start [...] day, # 1 each, 5 Refills, Maintenance, [place] Start Date: 03/15/13 Stop Date: 09/11/13 Status: [...] 1 each, 4 Refills, Maintenance,01/01/22 16:02:00 EDT, [facility] #46443, Partial fill upon patient request if the [...] 0, Maintenance, use overnight and naps from [facility], 08/15/20 12:05:00 EST, Compound Start Date: [...] tablet, Refills 3, Route to Pharmacy Electronically, [facility] #21511, 168, cm, 03/27/21 14:00:00 EDT, Height, 94.4, [...] 3 Refills, Maintenance, 04/12/20 10:50:00 EDT, Tablet, [facility] #66273, 162.56, cm, 03/01/20 14:13:00 EDT, Height, 94.4, [...] each, 3 Refills, Maintenance, 02/04/22 10:46:00 EDT, [facility] #16032, 168, cm, 02/04/22 10:23:00 EDT, Height Start [...] 0 Refills, Maintenance, 10/30/19 13:41:00 EDT, Tablet, [facility] #43646, 162.56, cm, 08/17/19 16:32:00 EST, Height, 94.4, [...] Team Personnel Name: Marianne Perez RN Position: [facility] RN Member Role: Primary Care Nurse Name: Debi Cisse MD Position: [facility] Primary Care Physician Member Role: PCP Address: Address: [address] [place] [address] Adult [place], [place] [address] Name: Viola Gonzalez Position: [facility] Outreach Member Role: Lifetime Consulting Physician Care Team Related Persons Name: ITZEL GARCIA Name: AILYN ANDERSON Name: RAF NAVARRETE
--- OUTSIDE RECORDS SUMMARY | 2022-11-22 21:29 | XMS_ITS | Continuity of Care Document ---
Author Name Unknown Organization [facility] Address [address] [place] [address]- Care Team Providers Care Home Hospice Aide Name Role Phone Betito OSORIO, Debi Lizama Primary Care Physician [id number] Date(s): 04/10/22 - 05/10/22 [facility] [address] [place] [address]- [place] Allergies, Adverse Reactions, Alerts Substance Reaction [...] Vacc (oldterm) 5 08/12/09 Given 1Admin Note: [facility] 2Location History: alf 3Result Comment: [06/04/2016] donna 4Result Comment: [04/08/2015] L&C 5Admin Note: DR. PASTOR, [place] Medications amLODIPine 10 mg oral tablet See Instructions, TAKE 1 TABLET BY MOUTH DAILY, # 90 each, 3 Refills, 09/24/21 10:21:00 EDT, [facility] #81799, 168, cm, 09/24/21 10:10:00 EDT, Height Start [...] Stop 09/19/22 10:25:00 EDT, 09/24/21 10:25:00 EDT, [facility] #55396, 168, cm, 09/24/21 10:10:00 EDT, Height Start [...] day, # 1 each, 5 Refills, Maintenance, [place] Start Date: 03/15/13 Stop Date: 09/11/13 [...] 1 each, 4 Refills, Maintenance,01/01/22 16:02:00 EDT, [facility] #53450, Partial fill upon patient request if the [...] tablet, Refills 3, Route to Pharmacy Electronically, [facility] #09247, 168, cm, 03/27/21 14:00:00 EDT, Height, 94.4, [...] 3 Refills, Maintenance, 04/12/20 10:50:00 EDT, Tablet, [facility] #83292, 162.56, cm, 03/01/20 14:13:00 EDT, Height, 94.4, [...] each, 3 Refills, Maintenance, 02/04/22 10:46:00 EDT, [facility] #66507, 168, cm, 02/04/22 10:23:00 EDT, Height Start [...] 0 Refills, Maintenance, 10/30/19 13:41:00 EDT, Tablet, [facility] #32014, 162.56, cm, 08/17/19 16:32:00 EST, Height, 94.4, [...] Team Personnel Name: Marianne Perez RN Position: [facility] RN Member Role: Primary Care Nurse Name: Debi Cisse MD Position: [facility] Primary Care Physician Member Role: PCP Address: Address: [address] [place] [address] Adult [place], [place] [address] Name: Viola Gonzalez Position: [facility] Outreach Member Role: Lifetime Consulting Physician Care Team Related Persons Name: ITZEL GARCIA Name: AILYN ANDERSON Name: RAF NAVARRETE
--- OUTSIDE RECORDS SUMMARY | 2022-11-22 21:29 | XMS_ITS | Continuity of Care Document ---
Author Name Unknown Organization [facility] Address [address] [place] [address]- Care Team Providers Care Renal Medicine Physician Name Role Phone Debi Cisse MD Primary Care Physician Encounter [facility] Date(s): 01/27/19 - 05/27/19 [facility] [address] [place] [address]- Attending Physician: Debi Cisse MD Allergies, Adverse [...] Vacc (oldterm) 5 08/12/09 Given 1Location History: [facility] 2Result Comment: [06/04/2016] donna 3Result Comment: [04/08/2015] L&C 4Admin Note: [facility] 5Admin Note: DR. PASTOR, [place] Medications amLODIPine 10 mg oral tablet 10 mg, 1, tablet, By Mouth, Daily, # 90 tablet, Refills 3, Tot. Refills 3, Maintenance, 04/13/19 15:01:39 EDT, Route to Pharmacy Electronically, [id number], [facility] #[id number] Start Date: 04/13/19 Status: Ordered aspirin 81 mg oral enteric coated tablet 1 tablet = 81 mg, By Mouth, Daily, # 30 tablet, 0 Refills, Maintenance, [place] Tablet Start Date: 05/28/10 Stop Date: 06/27/10 Status: Ordered atenolol 100 mg oral tablet 1 tablet = 100 mg, By Mouth, 2 times a day, 0 Refills, Maintenance, 10/05/16 9:40:42 Start Date: 10/05/16 Stop Date: 11/07/16 Status: Ordered atorvastatin 20 mg oral tablet 1 tablet = 20 mg, By Mouth, Daily, # 90 tablet, 3 Refills, Maintenance, Tablet, Route to Pharmacy Electronically, [id number], [facility] Start Date: 06/30/18 Status: Ordered baclofen 10 mg oral tablet 20 mg, 2, tablet, By Mouth, Daily, # 180 tablet, Refills 3, Tot. Refills 3, Maintenance, 12/29/18 10:23:44 EDT, Route to Pharmacy Electronically, [id number], [facility] Start Date: 12/29/18 Stop Date: 12/24/19 Status: Ordered gris extra strength tabs gris extra strength tabs, Refills 0, Maintenance, 01/07/17 10:36:18, Compound Start Date: 01/07/17 Status: Ordered calcium barbonate 650mg calcium barbonate [...] day, # 1 each, 5 Refills, Maintenance, [place] Start Date: 03/15/13 Stop Date: 09/11/13 Status: Ordered furosemide 20 mg oral tablet 40 mg, 2, tablet, By Mouth, Daily, # 180 tablet, Refills 3, Tot. Refills 3, Maintenance, 03/24/19 8:27:15 EDT, Route to Pharmacy Electronically, [id number], [facility] Start Date: 03/24/19 Stop Date: 03/18/20 Status: Ordered grapeseed 600mg grapeseed 600mg, Refills 0, Maintenance, 01/07/17 10:36:55, Compound Start Date: 01/07/17 Status: Ordered ibuprofen 800 mg oral tablet 800 mg, 1, tablet, By Mouth, 3 times a day, Refills 0, Maintenance, 06/20/18 9:23:45 EST Start Date: 06/20/18 Status: Ordered L Marko Knee CHECK knee [...] 360 tablet, Refills 1 Tot. Refills 1, [facility] #[id number] Start Date: 05/15/19 Status: Ordered Levothroid 0.075 mg oral tablet 1 tablet, By Mouth, Daily, # 30 tablet, 0 Refills, Maintenance, Tablet Start Date: 05/26/10 Status: Ordered losartan 100 mg oral tablet [...] Status Health Status Inform ant Anxiety(Confirmed) Active Chronic hepatitis C(Confirmed) Active Chronic UTI (urinary tract infection)(Confirmed) Active Constipation(Confirmed) Active Depression(Confirmed) Active Chronic left hip pain(Confirmed) Active Hypercholesterolemia(Confirmed) Active Hypertension(Confirmed) Active Hypothyroidism(Confirmed) Active Idiopathic peripheral neuropathy(Confirmed) Active Lymphoma, unspecified(Confirmed) 09/02/10 Active Migraine(Confirmed) Active Restless leg syndrome(Confirmed) Active 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
--- OUTSIDE RECORDS SUMMARY | 2022-11-22 21:29 | XMS_ITS | Continuity of Care Document ---
Author Name Unknown Organization [facility] Address [address] [place] [address]- Care Team Providers Care Lens Edge Grinder Machine Name Role Phone Debi Cisse MD Primary Care Physician [phone] [facility] [facility] Date(s): 05/02/20 - 06/30/20 [facility] [address] [place] [id number] Attending Physician: Grayson Canada MD Admitting Physician: Grayson Canada MD Referring Physician: Debi Cisse MD Allergies, [...] Vacc (oldterm) 5 08/12/09 Given 1Admin Note: [facility] 2Location History: [facility] 3Result Comment: [06/04/2016] donna 4Result Comment: [04/08/2015] L&C 5Admin Note: DR. PASTOR, [facility] amLODIPine 10 mg oral tablet 1 tablet, By Mouth, Daily, # 90 tablet, 3 Refills, Maintenance, 04/12/20 10:49:00 EDT, [email or web address] #36203, 162.56, cm, 03/01/20 14:13:00 EDT, Height, 94.4, [...] 3 Refills, Maintenance, 09/20/19 11:46:00 EDT, Tablet, [email or web address] #47496, 162.56, cm, 08/17/19 16:32:00 EST, Height, 94.4, [...] Gm, 3 Refills, Maintenance, 05/22/20 16:20:00 EST, [email or web address] #27099, 162.56, cm, 05/13/20 15:07:00 EST, Height, 94.4, kg,06/05/19 9:38:00 EST, Dry Weight Start Date: 05/22/20 Status: Ordered ferrous sulfate 325 mg oral tablet 1 tablet = 325 mg, By Mouth, 3 times a day, May take once daily and increase to 3 times a day if tolerated; take with vitamin C, # 90 tablet, 2 Refills, Maintenance, 08/18/19 13:10:00 EST, Tablet, [email or web address] #64136, 162.56, cm, 08/17/19 16:3... Start Date: 08/18/19 Status: Ordered fluticasone 50 mcg/inh nasal spray 1 sprays, Nares, Both, 2 times a day, # 1 each, 5 Refills, Maintenance, [place] Start Date: 03/15/13 Stop Date: 09/11/13 Status: Ordered furosemide 20 mg oral tablet 40 mg, 2, tablet, By Mouth, Daily, # 180 tablet, Refills 3, Tot. Refills 3, Maintenance, 03/11/20 14:33:00 EDT, Route to Pharmacy Electronically, [email or web address] #75486, 162.56, cm, 03/01/20 14:13:00 EDT, Height, 94.4, [...] 8 supp, 5 Refills, Maintenance, 04/29/20 12:11:00EST, [facility], Partial fill upon patient request, [...] 05/13/20 10:26:00 EST, Route to Pharmacy Electronically, [email or web address] #12578, 162.56, cm, 04/15/20 14:37:00 EST, Height, 94.4, [...] 3 Refills, Maintenance, 04/12/20 10:50:00 EDT, Tablet, [email or web address] #94099, 162.56, cm, 03/01/20 14:13:00 EDT, Height, 94.4, [...] 10/24/20 16:37:00 EDT, 04/27/20 16:37:00 EST, Tablet, [facility] #21370, 162.56, cm, 04/15/20 14:37:00 EST, Height, 94.4, [...] 0 Refills, Maintenance, 10/30/19 13:41:00 EDT, Tablet, [facility] #46578, 162.56, cm, 08/17/19 16:32:00 EST, Height, 94.4, [...]
--- OUTSIDE RECORDS SUMMARY | 2022-11-22 21:29 | XMS_ITS | Continuity of Care Document ---
Author Name Unknown Organization [facility] Address [address] [place] [address]- Care Team Providers Care Music Instructor Name Role Phone Betito OSORIO, Debi Lizama Primary Care Physician [phone] Encounter [facility] Date(s): 07/02/22 - 07/09/22 [facility] [address] [place] [id number] [place] Encounter Diagnosis Cough productive of purulent sputum(Discharge Diagnosis) - 07/02/22 Attending Physician: Lalo Eng Allergies, Adverse Reactions, Alerts Substance Reaction Severity Status phenobarbital Active sulfa drugs Active Vasotec ULCERS IN MOUTH Active Lobster BLOODY STOOLS Active Shrimp MOUTH [...] Vacc (oldterm) 5 08/12/09 Given 1Admin Note: [facility] 2Location History: [facility] 3Result Comment: [06/04/2016] donna 4Result Comment: [04/08/2015] L&C 5Admin Note: DR. PASTOR, [place] Medications amLODIPine 10 mg oral tablet See Instructions, TAKE 1 TABLET BY MOUTH DAILY, # 90 each, 3 Refills, 09/24/21 10:21:00 EDT, [facility] #[id number], 168, cm, 09/24/21 10:10:00 EDT, Height Start [...] Stop 09/19/22 10:25:00 EDT, 09/24/21 10:25:00 EDT, [facility] #[id number], 168, cm, 09/24/21 10:10:00 EDT, Height Start [...] day, # 1 each, 5 Refills, Maintenance, [place] Start Date: 03/15/13 Stop Date: 09/11/13 Status: Ordered furosemide 40 mg oral tablet 1, tablet, By Mouth, Daily, # 90 tablet, Refills 3, Tot. Refills 3, Maintenance, 06/10/22 10:40:00 EST, Route to Pharmacy Electronically, [facility] #[id number], 168, cm, 06/10/22 10:25:00 EST, Height Start Date: 06/10/22 Status: Ordered ipratropium nasal 21 mcg/inh spray See Instructions, PRN Nasal Congestion, 1 spray each nostril BID, # 1 each, 4 Refills, Maintenance,01/01/22 16:02:00 EDT, [facility] #[id number], Partial fill upon patient request if the [...] use overnight and naps from [facility], 08/15/20 12:05:00 EST, Compound Start [...] tablet, Refills 3, Route to Pharmacy Electronically, [facility] #[id number], 168, cm, 03/27/21 14:00:00 EDT, Height, 94.4, [...] 3 Refills, Maintenance, 04/12/20 10:50:00 EDT, Tablet, [facility] #[id number], 162.56, cm, 03/01/20 14:13:00 EDT, Height, 94.4, [...] each, 3 Refills, Maintenance, 02/04/22 10:46:00 EDT, [facility] #[id number], 168, cm, 02/04/22 10:23:00 EDT, Height Start [...] 0 Refills, Maintenance, 10/30/19 13:41:00 EDT, Tablet, [facility] #[id number], 162.56, cm, 08/17/19 16:32:00 EST, Height, 94.4, [...] Effective Dates Health Status Clinical Service Informant Cough productive of purulent sputum Discharge Diagnosis 07/02/22 Vital Signs Most recent to oldest [Reference Range]: 1 Height 168 cm (07/02/22 9:35 AM) Social History Social History Type Response Smoking Status Former smoker entered on: 10/04/14 Sex Note * Nanci Lucia: PERFORM, SIGN, VERIFY Event Display: Patient Education/Instruction Authored Date: [id number] [facility] *BMP [facility] Bltn Clinical Summary Name RAF BRONSON Age 76 Years 1945 PCP Betito OSORIO, Debi Lizama PCP Visit Date 07/02/2022 09:38:00 Additional Instructions: Scheduled Appointments?? Future Appointments ?*[facility] ?[address]??[place],??[place],??[address] ?Phone:??--?Fax:??-- ?Appt. Date:??07/28/2022?1:00 PM ?Scheduled Provider:??Rani OSORIO, Rina Arreguin Follow-Up Instructions ?? Diagnosis Major depressive disorder, recurrent, mild; Other specified cough Medications: Please continue your medications until treatment is completed or stopped by your provider. Discuss any questions related to medications with your provider. New Medications [facility] #[id number], [address], [place] [id number], [phone] Amoxicillin-Clavulanate (amoxicillin-clavulanate 875 mg-125 mg oral tablet) 1 tab(s) Oral every 12 hours for 7 Days. with food or milk. Refills: 0. Next Dose: Medications to Continue with No [...] Height 168 cm Weight BMI Blood Pressure / Temperature Pulse Rate Respiratory Rate 02 Sat Mode of Delivery / You can now view a summary of your hospital visit from the comfort of your home through a free online portal called [employer]. [employer] is a website that allows you to securely view your medical information including discharge summary, medications and follow-up visits. ??You can alsosend a secure electronic message to your doctor???s office to request appointments, renew medications or just ask a question. You can enroll at [email or web address] or register during your next office visit. [...] care provider, you may find a [facility] provider by calling [facility] [employer] Link at [phone]. For information about the plan of care [...] Team Personnel Name: Marianne Perez RN Position: [facility] RN Member Role: Primary Care Nurse Name: Debi Cisse MD Position: [facility] Primary Care Physician Member Role: PCP Address: Address: [address] [place] [address] [place], [place] [address] Name: Viola Gonzalez Position: [facility] Outreach Member Role: [employer] Consulting Physician Care Team Related Persons Name: ITZEL GARCIA Name: AILYN ANDERSON Name: RAF NAVARRETE
[2022-11-22 21:40] LABS: Basophils Percent Auto 0.4 % (0-2); Eosinophils Percent Auto 0.4 % (0-4); PLT CLUMP 1; Red Cell Distribution Width 13.1 % (11.0-16.0); SCAN SMEAR FLAG 1
[2022-11-22 21:42] LABS: Hematocrit 39.3 % (37.0-47.0); Imm Gran Abs Auto 0.03 X10*3/uL (0.00-0.03); Imm Gran Pct Auto 0.4 % (0.0-0.4); Lymphocytes Absolute Auto 0.3 X10*3/uL (1.2-4.9); Lymphocytes Percent Auto 4.5 % (20-40); MANUAL DIFF FLAG SCAN; Mean Corpuscular HGB Conc 33.1 g/dl (31.0-35.0); Mean Corpuscular Hemoglobin 30.8 pg (27.0-33.0); Mean Corpuscular Volume 93.1 fL (80.0-98.0); Mean Platelet Volume 9.7 fL (9.4-12.3); Monocytes Absolute Auto 0.2 X10*3/uL (0.1-1.2); Monocytes Percent Auto 2.2 % (2-11); Neutrophils Absolute Auto 6.6 x10*3/uL (2.0-8.3); Neutrophils Percent Auto 92.1 % (45-73); Red Blood Count 4.22 X10*6/uL (4.20-5.50)
--- NOTE | 2022-11-22 21:46 | ED_ITS ---
HPI - General Adult General Chief complaint: General Medical Stated complaint: rt hip pain diarrhea Time Seen by Provider: 11/22/22 21:08 History of Present Illness HPI narrative: Patient is a 77-year-old female presented today with having fever generalized malaise. Also having pain to the right hip. The pain is worse with movement. Patient has pain in the hip is been chronic in nature. Has arthritis in that hip in the past. Denies any trauma. Positive weakness. Patient lives alone with her cat. She is allergic to sulfa drugs Related Data Home Medications Medication Instructions Recorded Confirmed Lactobacillus acidophilus 2 tab PO BID 10/21/22 10/21/22 acetaminophen 500 mg tablet 1,000 mg PO TID PRN Pain, Mild 10/21/22 10/21/22 amlodipine 10 mg tablet 10 mg PO DAILY 10/21/22 10/21/22 ascorbic acid (vitamin C) 1,000 mg 1,000 mg PO BID 10/21/22 10/21/22 tablet atenolol 100 mg tablet 100 mg PO BID 10/21/22 10/21/22 atorvastatin 20 mg tablet 20 mg PO DAILY 10/21/22 10/21/22 buprenorphine HCl 2 mg sublingual 4 mg sublingual TID 10/21/22 10/21/22 tablet buspirone 5 mg tablet 5 mg PO DAILY 10/21/22 10/21/22 buspirone 5 mg tablet 15 mg PO BEDTIME 10/21/22 10/21/22 cetirizine 10 mg tablet 10 mg PO DAILY 10/21/22 10/21/22 cholecalciferol (vitamin D3) 10 10 mcg PO DAILY 10/21/22 10/21/22 mcg (400 unit) tablet escitalopram oxalate 20 mg tablet 20 mg PO DAILY 10/21/22 10/21/22 fluticasone propionate 50 1 spray intranasal BID 10/21/22 10/21/22 mcg/actuation nasal spray,suspension furosemide 40 mg tablet 40 mg PO DAILY 10/21/22 10/21/22 lamotrigine 200 mg tablet 200 mg PO BID 10/21/22 10/21/22 latanoprost 0.005 % eye drops 1 drp ophthalmic (eye) BEDTIME 10/21/22 10/21/22 levothyroxine 75 mcg tablet 75 mcg PO DAILY 10/21/22 10/21/22 lidocaine 5 % topical patch 3 patch topical DAILY 10/21/22 10/21/22 lorazepam 0.5 mg tablet 0.5 mg PO DAILY PRN Anxiety 10/21/22 10/21/22 losartan 100 mg tablet 100 mg PO DAILY 10/21/22 10/21/22 meloxicam 15 mg tablet 15 mg PO DAILY 10/21/22 10/21/22 methenamine hippurate 1 gram tablet 1 g PO BID 10/21/22 10/21/22 multivitamin 1 tab PO DAILY 10/21/22 10/21/22 omeprazole 20 mg capsule,delayed 20 mg PO BID@0630,1630 10/21/22 10/21/22 release polyethylene glycol 3350 17 gram 17 g PO BID 10/21/22 10/21/22 oral powder packet (Miralax) psyllium 1 packet PO BID 10/21/22 10/21/22 Allergies Allergy/AdvReac Type Severity Reaction Status Date / Time atropine [From ] Allergy Unknown Verified 11/22/22 21:16 clams Allergy Unknown Verified 11/22/22 21:16 crab Allergy Unknown Verified 11/22/22 21:16 enalaprilat [From Vasotec] Allergy Blister Verified 11/22/22 21:16 hyoscyamine [From ] Allergy Unknown Verified 11/22/22 21:16 phenobarbital Allergy Unknown Verified 11/22/22 21:16 scopolamine [From ] Allergy Unknown Verified 11/22/22 21:16 shellfish derived Allergy Unknown Verified 11/22/22 21:16 Sulfa (Sulfonamide Allergy Unknown Verified 11/22/22 21:16 Antibiotics) Review of Systems Review of Systems: Positive generalized malaise Positive hip pain Positive urinary frequency Yes all other systems are reviewed and are negative [facility] Past Medical History Attestation statement: The following information was validated with the patient. Medical History Anxiety GERD (gastroesophageal reflux disease) Hyperlipidemia Hypertension Hypothyroidism Lymphoma CARMEN on CPAP Peripheral neuropathy Recurrent UTI Resting tremor Restless leg syndrome Urinary incontinence Surgical History S/P radiation therapy Social History Social History Housing: Other Housing Other:: senior apartment. Do you presently have visiting nurse or other home services: Yes Patient Tobacco Use Status: Never used Tobacco Advance Directives: No Advance Directives Information Provided: Yes service: No Current occupational status: retired Physical Exam ED Vital Signs: Vital Signs - 24 hr 11/22/22 21:07 Temperature 100.6 F H Pulse Rate 90 Respiratory Rate 19 Blood Pressure 148/65 H Pulse Oximetry 95 Oxygen Delivery Method Room Air BMI result Body Mass Index 28.0 Appearance: Alert. Oriented X3. No acute distress. Eyes: Pupils equal, round and reactive to light. ENT: Pharynx normal. Neck: Normal inspection. Neck supple. No lymph nodes noted. No crepitus CVS: Normal heart rate and rhythm. Pulses normal. Normal S1 and S2 Respiratory: No respiratory distress. Breath sounds normal. No Wheezing. No rales Abdomen: Soft and nontender. No rigidity. No distention. good BS x4 Skin: Skin warm and dry. Normal skin color. Normal skin turgor. Extremities: Positive pain to the right hip worse with movement. Distal pulses intact. Sensation intact. No gross deformities noted. 2+ distal pulses in dorsalis pedis. No Lacerations. No Rash, skin intact Neuro: Oriented X 3. No motor deficit. No sensory deficit. Moving all extermities. No slurred speech Medications Administered Discontinued Medications Generic Name Dose Route Start Last Admin Trade Name Freq PRN Reason Stop Dose Admin Acetaminophen 975 mg 11/22/22 21:28 11/22/22 21:47 Acetaminophen 325 Mg Tablet PO 11/22/22 21:29 975 mg ONCE ONE Administration Hydromorphone HCl 0.5 mg 11/22/22 21:28 11/22/22 21:49 Hydromorphone Hcl 0.5 Mg/0.5 Ml Syringe IVPUSH 11/22/22 21:29 0.5 mg ONCE ONE Administration Protocol Sodium Chloride 1,000 mls @ 999 mls/hr 11/22/22 21:30 11/22/22 21:47 Ns IV 11/22/22 22:30 999 mls/hr .Q1H1M CHEO Administration Ceftriaxone Sodium 1 gm/ 50 mls @ 100 mls/hr 11/22/22 21:25 11/22/22 21:48 Sodium Chloride IV 11/22/22 21:54 100 mls/hr ONCE ONE Administration Medical Decision Making Medical Decision Making [facility] Narrative: Patient's urine is grossly infected. My interpretation patient's chest x-ray showed no acute pneumonia. Patient's white count is normal. Lactate is 1.2. No evidence for severe sepsis. Patient has no previous urine culture. Started patient on a dose of Rocephin. Cultures obtained. Case discussed with hospitalist team for admission. Patient's hip x-ray also showed no gross fracture most likely arthritis. Patient's pain has been chronic in nature. Differential Diagnosis Pneumonia, UTI, severe sepsis, hip fracture Admission/Observation Consideration of admission/observation: Escalation of care including admission/observation considered Consult Healthcare Provider Management of the patient was discussed with: Hospitalist Lab Data [facility] Lab Attestation statement: I reviewed the patient's lab results. 11/22/22 21:30 11/22/22 21:30 Labs: Lab Results 11/22/22 11/22/22 11/22/22 Range/Units 21:30 21:30 21:30 WBC 7.2 (4.8-10.8) X10*3/uL RBC 4.22 (4.20-5.50) X10*6/uL Hgb 13.0 (12.0-16.0) g/dl Hct 39.3 (37.0-47.0) % MCV 93.1 (80.0-98.0) fL MCH 30.8 (27.0-33.0) pg MCHC 33.1 (31.0-35.0) g/dl RDW 13.1 (11.0-16.0) % Plt Count 89 L (160-400) X10*3/uL MPV 9.7 (9.4-12.3) fL Immature Gran % (Auto) 0.4 (0.0-0.4) % Neut % (Auto) 92.1 H (45-73) % Lymph % (Auto) 4.5 L (20-40) % Trigg % (Auto) 2.2 (2-11) % Eos % (Auto) 0.4 (0-4) % Baso % (Auto) 0.4 (0-2) % Lymph # (Auto) 0.3 L (1.2-4.9) X10*3/uL Trigg # (Auto) 0.2 (0.1-1.2) X10*3/uL Eos # (Auto) 0.0 (0.0-0.4) X10*3/uL Baso # (Auto) 0.0 (0.0-0.2) X10*3/uL Abs Immat Gran (auto) 0.03 (0.00-0.03) X10*3/uL Absolute Neuts (auto) 6.6 (2.0-8.3) x10*3/uL Absolute Nucleated RBC 0.000 (0.0-0.012) X10*3/uL Nucleated RBC % (auto) 0.0 (0.0-0.2) /100WBC Smear Tech's Comments VERIFIED Sodium 132 L (135-145) mmol/L Potassium 4.8 (3.3-5.1) mmol/L Chloride 95 L (96-108) mmol/L Carbon Dioxide 25 (22-29) mmol/L Anion Gap 17 (12-20) BUN 35 H (9-16) mg/dL Creatinine 1.03 (0.5-1.4) mg/dL Estim Creat Clear Calc 46.8 Estimated GFR 52 Random Glucose 104 (60-115) mg/dL Lactic Acid 1.2 (0.5-2.0) mmol/L Calcium 9.2 (8.4-10.2) mg/dL Total Bilirubin 1.0 (0.0-1.0) mg/dL Direct Bilirubin 0.3 (0.0-0.5) mg/dL AST 46 H (5-31) U/L ALT 41 H (0-31) U/L Alkaline Phosphatase 54 (39-117) U/L Total Protein 7.4 (6.5-8.0) g/dL Albumin 4.3 (3.5-5.0) g/dL Lipase 25 (8-78) U/L Urine Color Urine Appearance Urine pH (5.0-9.0) Ur Specific [place] (1.005-1.025) Urine Protein (Neg-Trace) mg/dL Urine Glucose (UA) (Negative) mg/dL Urine Ketones (Negative) mg/dL Urine Blood (Negative) Urine Nitrite (Negative) Ur Leukocyte Esterase (Negative) Urine RBC (0-2) /HPF Urine WBC (0-5) /HPF Ur Squamous Epith Cells (0-2) /HPF Urine Bacteria (None Seen) Hyaline Casts (0-2) /LPF 11/22/22 Range/Units 22:14 WBC (4.8-10.8) X10*3/uL RBC (4.20-5.50) X10*6/uL Hgb (12.0-16.0) g/dl Hct (37.0-47.0) % MCV (80.0-98.0) fL MCH (27.0-33.0) pg MCHC (31.0-35.0) g/dl RDW (11.0-16.0) % Plt Count (160-400) X10*3/uL MPV (9.4-12.3) fL Immature Gran % (Auto) (0.0-0.4) % Neut % (Auto) (45-73) % Lymph % (Auto) (20-40) % Trigg % (Auto) (2-11) % Eos % (Auto) (0-4) % Baso % (Auto) (0-2) % Lymph # (Auto) (1.2-4.9) X10*3/uL Trigg # (Auto) (0.1-1.2) X10*3/uL Eos # (Auto) (0.0-0.4) X10*3/uL Baso # (Auto) (0.0-0.2) X10*3/uL Abs Immat Gran (auto) (0.00-0.03) X10*3/uL Absolute Neuts (auto) (2.0-8.3) x10*3/uL Absolute Nucleated RBC (0.0-0.012) X10*3/uL Nucleated RBC % (auto) (0.0-0.2) /100WBC Smear Tech's Comments Sodium (135-145) mmol/L Potassium (3.3-5.1) mmol/L Chloride (96-108) mmol/L Carbon Dioxide (22-29) mmol/L Anion Gap (12-20) BUN (9-16) mg/dL Creatinine (0.5-1.4) mg/dL Estim Creat Clear Calc Estimated GFR Random Glucose (60-115) mg/dL Lactic Acid (0.5-2.0) mmol/L Calcium (8.4-10.2) mg/dL Total Bilirubin (0.0-1.0) mg/dL Direct Bilirubin (0.0-0.5) mg/dL AST (5-31) U/L ALT (0-31) U/L Alkaline Phosphatase (39-117) U/L Total Protein (6.5-8.0) g/dL Albumin (3.5-5.0) g/dL Lipase (8-78) U/L Urine Color Yellow Urine Appearance Cloudy Urine pH 5.5 (5.0-9.0) Ur Specific [place] 1.010 (1.005-1.025) Urine Protein 30 (1+) H (Neg-Trace) mg/dL Urine Glucose (UA) Negative (Negative) mg/dL Urine Ketones Negative (Negative) mg/dL Urine Blood Moderate (2+) H (Negative) Urine Nitrite Negative (Negative) Ur Leukocyte Esterase Large (3+) H (Negative) Urine RBC 3-5 H (0-2) /HPF Urine WBC >50 H (0-5) /HPF Ur Squamous Epith Cells 0-2 (0-2) /HPF Urine Bacteria 4+ (None Seen) Hyaline Casts 0-2 (0-2) /LPF Independent Interpretation I performed an independent interpretation of an: EKG Interpretation: My interpretation of patient's EKG showed a sinus rhythm heart rate is 90 RI QRS QT within normals is no acute ST segment elevation External Record Review External record reviewed: Inpatient record Discharge Plan Discharge Clinical Impression: Acute UTI, Acute hip pain Patient Disposition: Admitted As Inpatient
[2022-11-22] MEDS: Acetaminophen 325 MG TABLET 975 MG PO (21:47)
[2022-11-22] MEDS: 0.9 % Sodium Chloride 1,000 ML 999 ML IV (21:47)
[2022-11-22] MEDS: cefTRIAXone sodium 1 GM in 0.9 % Sodium Chloride 50 ML IV (21:48)
[2022-11-22] MEDS: HYDROmorphone HCl 0.5 MG/0.5 ML SYRINGE IVPUSH (21:49)
[2022-11-22 21:51] LABS: Lactic Acid 1.2 mmol/L (0.5-2.0)
[2022-11-22 21:59] LABS: Alanine Aminotransferase 41 U/L (0-31); Albumin Level 4.3 g/dL (3.5-5.0); Alkaline Phosphatase 54 U/L (39-117); Anion Gap 17 (12-20); Aspartate Amino Transferase 46 U/L (5-31); Bilirubin Direct 0.3 mg/dL (0.0-0.5); Blood Urea Nitrogen 35 mg/dL (9-16); Calcium 9.2 mg/dL (8.4-10.2); Carbon Dioxide 25 mmol/L (22-29); Chloride 95 mmol/L (96-108); Creatinine Clr Calc Pharmacy 46.8; Estimated Glomerular Filt Rate 52; Glucose Random 104 mg/dL (60-115); Lipase 25 U/L (8-78); Platelet Count 89 X10*3/uL (160-400); Potassium 4.8 mmol/L (3.3-5.1); Sodium 132 mmol/L (135-145); Total Protein 7.4 g/dL (6.5-8.0); White Blood Count 7.2 X10*3/uL (4.8-10.8)
[2022-11-22 22:00] LABS: SLIDE REVIEW VERIFIED
--- NOTE | 2022-11-22 22:19 | PC.NURSE ---
Pt to imaging
[2022-11-22 22:22] LABS: Appearance Urine Cloudy; Color Urine Yellow; Glucose Urine UA Negative (Negative); Leukocyte Esterase Urine Large (3+) (Negative); Nitrite Urine Negative (Negative); PH 5.5 (5.0-9.0); UMIC TRIGGER UACC YES; Urine Blood Moderate (2+) (Negative); Urine Ketones Negative (Negative); Urine Protein 30 (1+) mg/dL (Neg-Trace)
[2022-11-22 22:33] LABS: Bacteria Urine 4+ (None Seen); Hyaline Casts Urine 0-2 /LPF (0-2); Squamous Epithelial Cell Urine 0-2 /HPF (0-2); UACC Culture Trigger YES; WBC Urine >50 /HPF (0-5)
--- NOTE | 2022-11-22 22:55 | PM.IMHP ---
History of Present Illness Date of Service: 11/22/22 Chief Complaint: Fever This is a 77-year-old female with pertinent history of essential hypertension, mixed hyperlipidemia, peripheral neuropathy, hypothyroidism, mood disorder, CARMEN on BiPAP, history of lymphoma status post radiation apartment for evaluation of fevers and chills. Patient states it started 2 days prior to presentation. She also has generalized malaise. Does endorse increase in urinary frequency. No hesitancy or dysuria. Patient denies abdominal discomfort, palpitations, chest discomfort, shortness of breath, changes in bowel habits. She also complains of chronic radiating pain of the right hip. In the emergency department, patient was found to be septic Review of Systems Constitutional: Constitutional: Reports chills and Reports fever(s) Cardiovascular: Cardiovascular: Reports no additional cardiovascular complaints Respiratory: Respiratory: Reports no additional respiratory complaints Gastrointestinal: Gastrointestinal: Reports no additional gastrointestinal complaints Genitourinary: Genitourinary: Reports urinary urgency [facility] Medical History Anxiety GERD (gastroesophageal reflux disease) Hyperlipidemia Hypertension Hypothyroidism Lymphoma CARMEN on CPAP Peripheral neuropathy Recurrent UTI Resting tremor Restless leg syndrome Urinary incontinence Functional capacity: wheelchair bound Surgical History S/P radiation therapy Social History Housing: Other Housing Other:: senior apartment. Do you presently have visiting nurse or other home services: Yes Patient Tobacco Use Status: Never used Tobacco Advance Directives: No Advance Directives Information Provided: Yes service: No Current occupational status: retired Meds Allergies Allergy/AdvReac Type Severity Reaction Status Date / Time atropine [From ] Allergy Unknown Verified 11/22/22 21:16 clams Allergy Unknown Verified 11/22/22 21:16 crab Allergy Unknown Verified 11/22/22 21:16 enalaprilat [From Vasotec] Allergy Blister Verified 11/22/22 21:16 hyoscyamine [From ] Allergy Unknown Verified 11/22/22 21:16 phenobarbital Allergy Unknown Verified 11/22/22 21:16 scopolamine [From ] Allergy Unknown Verified 11/22/22 21:16 shellfish derived Allergy Unknown Verified 11/22/22 21:16 Sulfa (Sulfonamide Allergy Unknown Verified 11/22/22 21:16 Antibiotics) Home Medications Medication Instructions Recorded Confirmed Last Taken Type Lactobacillus acidophilus 2 tab PO BID 10/21/22 10/21/22 Unknown History acetaminophen 500 mg tablet 1,000 mg PO TID PRN Pain, Mild 10/21/22 10/21/22 Unknown History amlodipine 10 mg tablet 10 mg PO DAILY 10/21/22 10/21/22 10/21/22 History ascorbic acid (vitamin C) 1,000 mg 1,000 mg PO BID 10/21/22 10/21/22 10/21/22 History tablet atenolol 100 mg tablet 100 mg PO BID 10/21/22 10/21/22 10/21/22 History atorvastatin 20 mg tablet 20 mg PO DAILY 10/21/22 10/21/22 Unknown History buprenorphine HCl 2 mg sublingual 4 mg sublingual TID 10/21/22 10/21/22 Unknown History tablet buspirone 5 mg tablet 5 mg PO DAILY 10/21/22 10/21/22 Unknown History buspirone 5 mg tablet 15 mg PO BEDTIME 10/21/22 10/21/22 Unknown History cetirizine 10 mg tablet 10 mg PO DAILY 10/21/22 10/21/22 Unknown History cholecalciferol (vitamin D3) 10 10 mcg PO DAILY 10/21/22 10/21/22 Unknown History mcg (400 unit) tablet escitalopram oxalate 20 mg tablet 20 mg PO DAILY 10/21/22 10/21/22 Unknown History fluticasone propionate 50 1 spray intranasal BID 10/21/22 10/21/22 Unknown History mcg/actuation nasal spray,suspension furosemide 40 mg tablet 40 mg PO DAILY 10/21/22 10/21/22 10/21/22 History lamotrigine 200 mg tablet 200 mg PO BID 10/21/22 10/21/22 Unknown History latanoprost 0.005 % eye drops 1 drp ophthalmic (eye) BEDTIME 10/21/22 10/21/22 Unknown History levothyroxine 75 mcg tablet 75 mcg PO DAILY 10/21/22 10/21/22 Unknown History lidocaine 5 % topical patch 3 patch topical DAILY 10/21/22 10/21/22 Unknown History lorazepam 0.5 mg tablet 0.5 mg PO DAILY PRN Anxiety 10/21/22 10/21/22 Unknown History losartan 100 mg tablet 100 mg PO DAILY 10/21/22 10/21/22 10/21/22 History meloxicam 15 mg tablet 15 mg PO DAILY 10/21/22 10/21/22 Unknown History methenamine hippurate 1 gram tablet 1 g PO BID 10/21/22 10/21/22 10/21/22 History multivitamin 1 tab PO DAILY 10/21/22 10/21/22 Unknown History omeprazole 20 mg capsule,delayed 20 mg PO BID@0630,1630 10/21/22 10/21/22 Unknown History release polyethylene glycol 3350 17 gram 17 g PO BID 10/21/22 10/21/22 Unknown History oral powder packet (Miralax) psyllium 1 packet PO BID 10/21/22 10/21/22 Unknown History Physical Exam Vital Signs and Narrative: Vital Signs: Last Vital Signs Temp 100.6 F H 11/22/22 21:07 Pulse 90 11/22/22 21:07 Resp 19 11/22/22 21:07 BP 148/65 H 11/22/22 21:07 Pulse Ox 95 11/22/22 21:07 O2 Del Method Room Air 11/22/22 21:07 BMI result Body Mass Index 28.0 Elderly female lying in bed in no distress Neck supple, no JVD Regular rate and rhythm, S1-S2 heard Regular breath sounds bilaterally, no wheezing or crackles appreciated Abdomen soft nontender, no guarding, no rigidity, no CVA tenderness Patient is awake, alert and oriented to self, place, time and person ; no focal motor deficit Limited movement of right lower extremity due to pain Psych: Normal mood No pedal edema Results Labs 11/22/22 21:30 11/22/22 21:30 Labs: Laboratory Results - last 24 hr 11/22/22 11/22/22 11/22/22 21:30 21:30 21:30 MCV 93.1 MCH 30.8 MCHC 33.1 RDW 13.1 Plt Count 89 L MPV 9.7 Immature Gran % (Auto) 0.4 Neut % (Auto) 92.1 H Lymph % (Auto) 4.5 L [place] % (Auto) 2.2 Eos % (Auto) 0.4 Baso % (Auto) 0.4 Lymph # (Auto) 0.3 L [place] # (Auto) 0.2 Eos # (Auto) 0.0 Baso # (Auto) 0.0 Abs Immat Gran (auto) 0.03 Absolute Neuts (auto) 6.6 Absolute Nucleated RBC 0.000 Nucleated RBC % (auto) 0.0 Smear Tech's Comments VERIFIED Anion Gap 17 Estim Creat Clear Calc 46.8 Estimated GFR 52 Random Glucose 104 Lactic Acid 1.2 Calcium 9.2 Total Bilirubin 1.0 Direct Bilirubin 0.3 AST 46 H ALT 41 H Alkaline Phosphatase 54 Total Protein 7.4 Albumin 4.3 Lipase 25 Urine Color Urine Appearance Urine pH Ur Specific [place] Urine Protein Urine Glucose (UA) Urine Ketones Urine Blood Urine Nitrite Ur Leukocyte Esterase Urine RBC Urine WBC Ur Squamous Epith Cells Urine Bacteria Hyaline Casts 11/22/22 22:14 MCV MCH MCHC RDW Plt Count MPV Immature Gran % (Auto) Neut % (Auto) Lymph % (Auto) [place] % (Auto) Eos % (Auto) Baso % (Auto) Lymph # (Auto) [place] # (Auto) Eos # (Auto) Baso # (Auto) Abs Immat Gran (auto) Absolute Neuts (auto) Absolute Nucleated RBC Nucleated RBC % (auto) Smear Tech's Comments Anion Gap Estim Creat Clear Calc Estimated GFR Random Glucose Lactic Acid Calcium Total Bilirubin Direct Bilirubin AST ALT Alkaline Phosphatase Total Protein Albumin Lipase Urine Color Yellow Urine Appearance Cloudy Urine pH 5.5 Ur Specific [place] 1.010 Urine Protein 30 (1+) H Urine Glucose (UA) Negative Urine Ketones Negative Urine Blood Moderate (2+) H Urine Nitrite Negative Ur Leukocyte Esterase Large (3+) H Urine RBC 3-5 H Urine WBC >50 H Ur Squamous Epith Cells 0-2 Urine Bacteria 4+ Hyaline Casts 0-2 Imaging Radiologist's Impressions: Impressions Chest X-Ray 11/22/22 22:30 IMPRESSION: No acute pulmonary disease. Assessment and Plan (1) Acute UTI: Status: Acute Plan LauroThiharjinder is a 77-year-old female with pertinent history of essential hypertension, mixed hyperlipidemia, peripheral neuropathy, hypothyroidism, mood disorder, CARMEN on BiPAP, history of lymphoma status post radiation apartment for evaluation of fevers and chills. #. Sepsis due to acute UTI. Patient resuscitated with IV crystalloids. Will initiate empiric IV Rocephin. Cultures and urine culture obtained. Lactic acid within normal limits #. Chronic neuropathic pain. Continue home po medications. Consulting PT to eval and treat. Rt hip xray pending #. Essential hypertension. Hold home antihypertensives in the setting of sepsis. Resume as appropriate #. Mixed hyperlipidemia. On statin #. Hypothyroidism. On Synthroid #. CARMEN on CPAP #. Thrombocytopenia, chronic: defer lovenox Med rec pending DVT prophylaxis: SCDs DNR/DNI. Confirmed with pt at bedside Cardiac diet Admit as inpatient and will require two night minimum hospital stay for IV antibiotics Time Spent With Patient Time: Total time managing care of this patient today ____ minutes. Quality Stroke Does the patient have a stroke diagnosis?: No VTE Prior VTE?: No VTE Risk Level:: Medical - moderate - high VTE Device Contraindication: N/A - Device Ordered VTE Drug Contraindication: Treatment Not Indicated
[2022-11-22 23:36] VITALS: BP 133/63; PULSE 98; TEMP 38.8; O2SAT 93
[2022-11-23] VITALS (11 sets, daily range): BP systolic 99–148; BP diastolic 44–67; PULSE 69–93; RESP 18–20; TEMP 36.1–38.2; O2SAT 91–99; BMI 25.5
[2022-11-23] MEDS: HYDROmorphone HCl 1 MG/ML SYRINGE IVPUSH (00:09)
[2022-11-23] MEDS: 0.9 % Sodium Chloride Flush 3 ML SYRINGE IVFLUSH ×3 (00:09→16:31)
[2022-11-23] MEDS: Ketorolac Tromethamine 15 MG/ML VIAL IVPUSH (00:17)
--- NOTE | 2022-11-23 00:24 | PC.NURSE ---
Report to Kay YAP. Pt to go to [phone].
[2022-11-23] MEDS: HYDROmorphone HCl 0.5 MG/0.5 ML SYRINGE IVPUSH ×3 (05:05→20:51)
[2022-11-23 06:53] LABS: Hemoglobin 11.6 g/dl (12.0-16.0); Mean Platelet Volume 10.4 fL (9.4-12.3); PLT CLUMP 1
[2022-11-23 06:55] LABS: Hematocrit 35.5 % (37.0-47.0); Mean Corpuscular HGB Conc 32.7 g/dl (31.0-35.0); Mean Corpuscular Hemoglobin 30.8 pg (27.0-33.0); Mean Corpuscular Volume 94.2 fL (80.0-98.0); Red Blood Count 3.77 X10*6/uL (4.20-5.50); Red Cell Distribution Width 13.1 % (11.0-16.0)
[2022-11-23 06:59] LABS: Platelet Count 72 X10*3/uL (160-400); White Blood Count 7.5 X10*3/uL (4.8-10.8)
[2022-11-23 07:08] LABS: Anion Gap 13 (12-20); Blood Urea Nitrogen 32 mg/dL (9-16); Calcium 8.6 mg/dL (8.4-10.2); Carbon Dioxide 27 mmol/L (22-29); Chloride 97 mmol/L (96-108); Creatinine Clr Calc Pharmacy 47.6; Estimated Glomerular Filt Rate 55; Glucose Random 106 mg/dL (60-115); Potassium 4.1 mmol/L (3.3-5.1); Sodium 133 mmol/L (135-145)
--- NOTE | 2022-11-23 08:04 | P.PNIM_ITS ---
Subjective Subjective Date of Service: 11/23/22 Review of Systems Follow-up sepsis/UTI Feeling very weak Still having acute on chronic pain to back Physical Exam Vital Signs: Vital Signs: Last Vital Signs Temp 97.0 F 11/23/22 07:10 Pulse 72 11/23/22 07:10 Resp 20 11/23/22 07:10 BP 114/49 L 11/23/22 07:10 Pulse Ox 93 11/23/22 07:10 O2 Del Method Room Air 11/23/22 07:10 O2 Flow Rate 2 11/23/22 01:17 BMI result Body Mass Index 25.5 Appearing in no acute distress lung sounds are clear to auscultation heart regular rate rhythm, clear S1, S2 positive bowel sounds, abdomen is soft, nontender neuro patient is alert x3, no focal deficits, mainly wheelchair-bound Objective Data Active Medications Acetaminophen (Acetaminophen 325 Mg Tablet) 650 mg PO Q6H PRN PRN Reason: Pain, Mild (Pain Scale 1-3) Ceftriaxone Sodium 1 gm/ (Sodium Chloride) 50 mls @ 100 mls/hr IV Q24H [facility] Melatonin (Melatonin 3 Mg Tablet) 6 mg PO BEDTIME PRN PRN Reason: Insomnia Ondansetron HCl (Ondansetron Hcl 4 Mg/2 Ml Vial) 4 mg IVPUSH Q8H PRN PRN Reason: Nausea and Vomiting Pharmacy Consult (Consult Rx Perform Med Rec) 1 each MISCELLANE ONCE PRN PRN Reason: Consult order Sodium Chloride (0.9 % Sodium Chloride Flush 3 Ml Syringe) 3 ml IVFLUSH QSHIFT [facility] Last Admin: 11/23/22 00:09 Dose: 3 ml Documented By: EVGENY Labs 11/23/22 06:07 11/23/22 06:07 Labs: Laboratory Results - last 24 hr 11/22/22 11/22/22 11/22/22 21:30 21:30 21:30 MCV 93.1 MCH 30.8 MCHC 33.1 RDW 13.1 Plt Count 89 L MPV 9.7 Immature Gran % (Auto) 0.4 Neut % (Auto) 92.1 H Lymph % (Auto) 4.5 L [place] % (Auto) 2.2 Eos % (Auto) 0.4 Baso % (Auto) 0.4 Lymph # (Auto) 0.3 L [place] # (Auto) 0.2 Eos # (Auto) 0.0 Baso # (Auto) 0.0 Abs Immat Gran (auto) 0.03 Absolute Neuts (auto) 6.6 Absolute Nucleated RBC 0.000 Nucleated RBC % (auto) 0.0 Smear Tech's Comments VERIFIED Anion Gap 17 Estim Creat Clear Calc 46.8 Estimated GFR 52 Random Glucose 104 Lactic Acid 1.2 Calcium 9.2 Total Bilirubin 1.0 Direct Bilirubin 0.3 AST 46 H ALT 41 H Alkaline Phosphatase 54 Total Protein 7.4 Albumin 4.3 Lipase 25 Urine Color Urine Appearance Urine pH Ur Specific [place] Urine Protein Urine Glucose (UA) Urine Ketones Urine Blood Urine Nitrite Ur Leukocyte Esterase Urine RBC Urine WBC Ur Squamous Epith Cells Urine Bacteria Hyaline Casts 11/22/22 11/23/22 11/23/22 22:14 06:07 06:07 MCV 94.2 MCH 30.8 MCHC 32.7 RDW 13.1 Plt Count 72 L MPV 10.4 Immature Gran % (Auto) Cancelled Neut % (Auto) Cancelled Lymph % (Auto) Cancelled [place] % (Auto) Cancelled Eos % (Auto) Cancelled Baso % (Auto) Cancelled Lymph # (Auto) Cancelled [place] # (Auto) Cancelled Eos # (Auto) Cancelled Baso # (Auto) Cancelled Abs Immat Gran (auto) Cancelled Absolute Neuts (auto) Cancelled Absolute Nucleated RBC 0.000 Nucleated RBC % (auto) 0.0 Smear Tech's Comments Anion Gap 13 Estim Creat Clear Calc 47.6 Estimated GFR 55 Random Glucose 106 Lactic Acid Calcium 8.6 D Total Bilirubin Direct Bilirubin AST ALT Alkaline Phosphatase Total Protein Albumin Lipase Urine Color Yellow Urine Appearance Cloudy Urine pH 5.5 Ur Specific [place] 1.010 Urine Protein 30 (1+) H Urine Glucose (UA) Negative Urine Ketones Negative Urine Blood Moderate (2+) H Urine Nitrite Negative Ur Leukocyte Esterase Large (3+) H Urine RBC 3-5 H Urine WBC >50 H Ur Squamous Epith Cells 0-2 Urine Bacteria 4+ Hyaline Casts 0-2 Microbiology Microbiology Results: Microbiology 11/22/22 22:34 Urine Culture - Preliminary Urine clean catch - Urine roman top Culture in progress. 11/22/22 21:30 Blood Culture - Preliminary Blood - Venous Prelim: GNR Gram Stain only 11/22/22 21:30 Blood Culture - Preliminary Blood - Venous Prelim: GNR Gram Stain only Assessment and Plan (1) Acute UTI: Status: Acute Plan 77-year-old female with pertinent history of essential hypertension, mixed hyperlipidemia, peripheral neuropathy, hypothyroidism, mood disorder, CARMEN on BiPAP, history of lymphoma status post radiation apartment for evaluation of fevers and chills. GNR bacteremia with sepsis likely secondary to acute UTI.? Patient resuscitated with IV crystalloids.? continue IV Rocephin.? follow final cultures Chronic neuropathic pain. Continue home po medications and add opiate for better pain control Consulting PT to eval and treat. Rt hip xray neg for acute fracture Essential hypertension.? Hold home antihypertensives in the setting of sepsis.? Resume as appropriate Mixed hyperlipidemia.? On statin Hypothyroidism.? On Synthroid CARMEN on CPAP Thrombocytopenia, chronic: defer lovenox DVT prophylaxis: SCDs DNR/DNI. Confirmed with pt at bedside Attending Dr. Jones continued hospital stay for IV antibiotics Time Spent With Patient Time: Total time managing care of this patient today ____ minutes. Quality Stroke Does the patient have a stroke diagnosis?: No VTE Prior VTE?: No VTE Risk Level:: Medical - moderate - high VTE Device Contraindication: N/A - Device Ordered VTE Drug Contraindication: Treatment Not Indicated
[2022-11-23 08:05] LABS: Band Neutrophils Percent 12 % (3-5); Lymphocytes Absolute Manual 0.5 X10*3/uL (1.2-4.9); Lymphocytes Percent Manual 6 % (20-40); Monocytes Absolute Manual 0.4 X10*3/uL (0.1-1.2); Monocytes Percent Manual 5 % (2-11); Neutrophils Absolute Manual 6.7 X10*3/uL (2.0-8.3); Neutrophils Percent Manual 77 % (45-73)
[2022-11-23 08:07] LABS: Burr Cells 2+ (3-5) /OIF; RBC Morphology NOTED
[2022-11-23 08:08] LABS: Platelet Estimate DECREASED (NORMAL); Platelet Morphology Comment NORMAL
[2022-11-23] MEDS: oxyCODONE HCl Immed Release 5 MG TABLET PO ×2 (08:21→12:21)
[2022-11-23] MEDS: Acetaminophen 325 MG TABLET 650 MG PO (09:56)
--- NOTE | 2022-11-23 09:57 | MHC.CM.PN ---
IMM 11/23/22. Pt admitted with dx fever. Pt lives at home alone, has HVNA, uses a w/c and a bipap machine. Pts 2 daughters are her HCP's, copy requested. D/C plan to return home with previous HVNA when medically cleared, pts daughters will transport. PCP: Debi Piña vax: x [phone] sinana
--- NOTE | 2022-11-23 13:43 | PHA.MEDREC ---
Pharmacy Consult ? Medication Reconciliation Pharmacy has completed the medication reconciliation. [facility] and [facility].
[2022-11-23] MEDS: cefTRIAXone sodium 1 GM in 0.9 % Sodium Chloride 50 ML IV (22:20)
[2022-11-24 00:10] VITALS: RESP 18
[2022-11-24] MEDS: Acetaminophen 325 MG TABLET 650 MG PO ×2 (00:23→21:07)
[2022-11-24] MEDS: 0.9 % Sodium Chloride Flush 3 ML SYRINGE IVFLUSH ×4 (00:23→21:10)
[2022-11-24 01:30] VITALS: TEMP 37.8
[2022-11-24 05:46] VITALS: BP 162/70; PULSE 80; RESP 18; TEMP 37.7; O2SAT 92
[2022-11-24] MEDS: HYDROmorphone HCl 0.5 MG/0.5 ML SYRINGE IVPUSH ×2 (06:07→10:33)
[2022-11-24 06:14] LABS: Anion Gap 11 (12-20); Blood Urea Nitrogen 24 mg/dL (9-16); Carbon Dioxide 30 mmol/L (22-29); Chloride 96 mmol/L (96-108); Creatinine Clr Calc Pharmacy 49.1; Estimated Glomerular Filt Rate 57; Glucose Random 105 mg/dL (60-115); Potassium 4.2 mmol/L (3.3-5.1); Sodium 133 mmol/L (135-145)
[2022-11-24 07:41] VITALS: BP 140/63; PULSE 72; RESP 20; TEMP 36.8; O2SAT 96
[2022-11-24] MEDS: Ascorbic Acid 500 MG TABLET 1000 MG PO ×2 (08:12→21:06)
[2022-11-24] MEDS: Omeprazole 20 MG CAPSULE.DR PO ×2 (08:12→16:09)
[2022-11-24] MEDS: Atorvastatin Calcium 20 MG TABLET PO (08:13)
[2022-11-24] MEDS: amLODIPine Besylate 10 MG TABLET PO (08:13)
[2022-11-24] MEDS: busPIRone HCl 5 MG TABLET PO (08:13)
[2022-11-24] MEDS: Escitalopram Oxalate 20 MG TABLET PO (08:13)
[2022-11-24] MEDS: Losartan Potassium 50 MG TABLET 100 MG PO (08:19)
[2022-11-24] MEDS: Cholecalciferol (Vitamin D3) 10 MCG TABLET PO (08:19)
[2022-11-24] MEDS: Multivitamin TABLET 1 TAB PO (08:19)
[2022-11-24] MEDS: lamoTRIgine 100 MG TABLET 200 MG PO ×2 (08:19→21:06)
[2022-11-24] MEDS: Levothyroxine Sodium 75 MCG TABLET PO (08:19)
[2022-11-24] MEDS: Loratadine 10 MG TABLET PO (08:19)
[2022-11-24] MEDS: Buprenorphine HCL 2 MG TAB.SUBL 4 MG SUBLINGUAL ×2 (08:19→21:08)
[2022-11-24] MEDS: Furosemide 40 MG TABLET PO (08:20)
[2022-11-24] MEDS: polyethylene glycoL 3350 17 GM POWD.PACK PO ×2 (08:20→21:04)
--- NOTE | 2022-11-24 09:54 | HO.PM.IMPN ---
Subjective Subjective Date of Service: 11/24/22 Review of Systems Follow-up sepsis/UTI feeling better today Still having acute on chronic pain to back Physical Exam Vital Signs: Vital Signs: Last Vital Signs Temp 98.3 F 11/24/22 07:41 Pulse 72 11/24/22 07:41 Resp 20 11/24/22 07:41 BP 140/63 H 11/24/22 07:41 Pulse Ox 96 11/24/22 07:41 O2 Del Method Nasal Cannula 11/24/22 07:41 O2 Flow Rate 2 11/24/22 07:41 BMI result Body Mass Index 25.5 Appearing in no acute distress lung sounds are clear to auscultation heart regular rate rhythm, clear S1, S2 positive bowel sounds, abdomen is soft, nontender neuro patient is alert x3, no focal deficits Objective Data Active Medications Acetaminophen (Acetaminophen 325 Mg Tablet) 650 mg PO Q6H PRN PRN Reason: Pain, Mild (Pain Scale 1-3) Last Admin: 11/24/22 00:23 Dose: 650 mg Documented By: KENDRICK Amlodipine Besylate (Amlodipine Besylate 10 Mg Tablet) 10 mg PO DAILY [facility]; Protocol Last Admin: 11/24/22 08:13 Dose: 10 mg Documented By: MILLIE Ascorbic Acid (Ascorbic Acid 500 Mg Tablet) 1,000 mg PO BID [facility] Last Admin: 11/24/22 08:12 Dose: 1,000 mg Documented By: MILLIE Atorvastatin Calcium (Atorvastatin Calcium 20 Mg Tablet) 20 mg PO DAILY [facility] Last Admin: 11/24/22 08:13 Dose: 20 mg Documented By: MILLIE Bisacodyl (Bisacodyl 10 Mg Supp.Rect) 10 mg [place] DAILY PRN PRN Reason: Constipation Buprenorphine HCl (Buprenorphine Hcl 2 Mg Tab.Subl) 4 mg SUBLINGUAL TID [facility] Last Admin: 11/24/22 08:19 Dose: 4 mg Documented By: MILLIE Buspirone HCl (Buspirone Hcl 5 Mg Tablet) 5 mg PO DAILY [facility] Last Admin: 11/24/22 08:13 Dose: 5 mg Documented By: MILLIE Buspirone HCl (Buspirone Hcl 5 Mg Tablet) 15 mg PO BEDTIME [facility] Escitalopram Oxalate (Escitalopram Oxalate 20 Mg Tablet) 20 mg PO DAILY [facility] Last Admin: 11/24/22 08:13 Dose: 20 mg Documented By: MILLIE Fluticasone Propionate (Fluticasone Propionate Nasal 16 Gm [place]) 1 spray NOSTRIL-B BID [facility] Last Admin: 11/24/22 08:27 Dose: Not Given Documented By: MILLIE Non-Admin Reason: Patient Refused Furosemide (Furosemide 40 Mg Tablet) 40 mg PO DAILY [facility]; Protocol Last Admin: 11/24/22 08:20 Dose: 40 mg Documented By: MILLIE Hydromorphone HCl (Hydromorphone Hcl 0.5 Mg/0.5 Ml Syringe) 0.5 mg IVPUSH Q4H PRN; Protocol PRN Reason: Pain, Mild (Pain Scale 1-3) Last Admin: 11/24/22 06:07 Dose: 0.5 mg Documented By: KENDRICK Ceftriaxone Sodium 1 gm/ (Sodium Chloride) 50 mls @ 100 mls/hr IV Q24H [facility] Last Infusion: 11/23/22 22:54 Dose: 0 mls/hr Documented By: BRIDGETT Lamotrigine (Lamotrigine 100 Mg Tablet) 200 mg PO BID [facility] Last Admin: 11/24/22 08:19 Dose: 200 mg Documented By: MILLIE Latanoprost (Latanoprost 0.005 % Ophth [place] 2.5 Ml Drops) 1 drop EYE-BOTH BEDTIME [facility] Levothyroxine Sodium (Levothyroxine Sodium 75 Mcg Tablet) 75 mcg PO DAILY [facility] Last Admin: 11/24/22 08:19 Dose: 75 mcg Documented By: MILLIE Loratadine (Loratadine 10 Mg Tablet) 10 mg PO DAILY [facility] Last Admin: 11/24/22 08:19 Dose: 10 mg Documented By: MILLIE Lorazepam (Lorazepam 0.5 Mg Tablet) 0.5 mg PO DAILY PRN PRN Reason: Anxiety Losartan Potassium (Losartan Potassium 50 Mg Tablet) 100 mg PO DAILY [facility]; Protocol Last Admin: 11/24/22 08:19 Dose: 100 mg Documented By: MILLIE Melatonin (Melatonin 3 Mg Tablet) 6 mg PO BEDTIME PRN PRN Reason: Insomnia Multivitamins/Vitamin C (Multivitamin Tablet) 1 tab PO DAILY [facility] Last Admin: 11/24/22 08:19 Dose: 1 tab Documented By: MILLIE Omeprazole (Omeprazole 20 Mg Capsule.Dr) 20 mg PO BID@1982,7990 [facility] Last Admin: 11/24/22 08:12 Dose: 20 mg Documented By: MILLIE Ondansetron HCl (Ondansetron Hcl 4 Mg/2 Ml Vial) 4 mg IVPUSH Q8H PRN PRN Reason: Nausea and Vomiting Oxycodone HCl (Oxycodone Hcl Immed Release 5 Mg Tablet) 5 mg PO Q4H PRN PRN Reason: Pain, Mild (Pain Scale 1-3) Last Admin: 11/23/22 12:21 Dose: 5 mg Documented By: MILLIE Pharmacy Consult (Consult Rx Perform Med Rec) 1 each MISCELLANE ONCE PRN PRN Reason: Consult order Polyethylene Glycol (Polyethylene Glycol 3350 17 Gm Powd.Pack) 17 gm PO BID [facility] Last Admin: 11/24/22 08:20 Dose: 17 gm Documented By: MILLIE Psyllium Hydrophilic Mucilloid (Psyllium Seed 3.4 Gm Powd.Pack) 3.4 gm PO BID [facility] Last Admin: 11/24/22 09:17 Dose: 3.4 gm Documented By: MILLIE Sodium Chloride (0.9 % Sodium Chloride Flush 3 Ml Syringe) 3 ml IVFLUSH QSHIFT [facility] Last Admin: 11/24/22 08:13 Dose: 3 ml Documented By: MILLIE Vitamin D (Cholecalciferol (Vitamin D3) 10 Mcg Tablet) 10 mcg PO DAILY [facility] Last Admin: 11/24/22 08:19 Dose: 10 mcg Documented By: MILLIE Labs 11/23/22 06:07 11/24/22 05:25 Labs: Laboratory Results - last 24 hr 11/24/22 05:25 Anion Gap 11 L Estim Creat Clear Calc 49.1 Estimated GFR 57 Random Glucose 105 Calcium 9.0 Microbiology Microbiology Results: Microbiology 11/22/22 22:34 Urine Culture - Preliminary Urine clean catch - Urine roman top Culture in progress. 11/22/22 21:30 Blood Culture - Preliminary Blood - Venous Prelim: GNR Gram Stain only 11/22/22 21:30 Blood Culture - Preliminary Blood - Venous Prelim: GNR Gram Stain only Assessment and Plan (1) Acute UTI: Status: Acute Plan 77-year-old female with pertinent history of essential hypertension, mixed hyperlipidemia, peripheral neuropathy, hypothyroidism, mood disorder, CARMEN on BiPAP, history of lymphoma status post radiation apartment for evaluation of fevers and chills. GNR bacteremia with sepsis likely secondary to acute UTI.? Patient resuscitated with IV crystalloids.? continue IV Rocephin.? follow final cultures Chronic neuropathic pain. Continue home po medications and add opiate for better pain control PT rec STR however patient wants to go home Rt hip xray neg for acute fracture Essential hypertension.? Hold home antihypertensives in the setting of sepsis.? Resume as appropriate Mixed hyperlipidemia.? On statin Hyponatremia mild likely secondary to hypovolemia encourage oral intake Hypothyroidism.? On Synthroid CARMEN on CPAP Thrombocytopenia, chronic: defer lovenox DVT prophylaxis: SCDs DNR/DNI. Attending Dr. Jones continued hospital stay for IV antibiotics, pain management Time Spent With Patient Time: Total time managing care of this patient today ____ minutes. Quality Stroke Does the patient have a stroke diagnosis?: No VTE Prior VTE?: No VTE Risk Level:: Medical - moderate - high VTE Device Contraindication: N/A - Device Ordered VTE Drug Contraindication: Treatment Not Indicated
[2022-11-24] MEDS: oxyCODONE HCl Immed Release 5 MG TABLET PO (13:21)
[2022-11-24 14:32] VITALS: BP 140/63; PULSE 72; O2SAT 96
[2022-11-24 15:31] VITALS: BP 129/58; PULSE 69; RESP 17; TEMP 36.9; O2SAT 92
[2022-11-24] MEDS: busPIRone HCl 5 MG TABLET 15 MG PO (21:07)
[2022-11-24] MEDS: cefTRIAXone sodium 1 GM in 0.9 % Sodium Chloride 50 ML IV (21:09)
[2022-11-24] MEDS: Fluticasone Propionate Nasal 16 GM SPRAY 1 SPRAY NOSTRIL-B (21:30)
[2022-11-25] VITALS: BP 123/61; PULSE 62; RESP 18; TEMP 36.7; O2SAT 95
[2022-11-25] MEDS: HYDROmorphone HCl 0.5 MG/0.5 ML SYRINGE IVPUSH ×4 (01:59→23:02)
[2022-11-25 02:00] VITALS: RESP 18
[2022-11-25] MEDS: oxyCODONE HCl Immed Release 5 MG TABLET PO ×2 (06:09→12:41)
[2022-11-25] MEDS: Omeprazole 20 MG CAPSULE.DR PO ×2 (06:10→15:56)
[2022-11-25 07:02] VITALS: BP 152/67; PULSE 60; RESP 20; TEMP 36.1; O2SAT 95
[2022-11-25 07:09] LABS: Anion Gap 12 (12-20); Blood Urea Nitrogen 19 mg/dL (9-16); Calcium 9.3 mg/dL (8.4-10.2); Carbon Dioxide 28 mmol/L (22-29); Chloride 98 mmol/L (96-108); Creatinine Clr Calc Pharmacy 62.5; Estimated Glomerular Filt Rate > 60; Glucose Random 99 mg/dL (60-115); Potassium 3.4 mmol/L (3.3-5.1); Sodium 135 mmol/L (135-145)
[2022-11-25] MEDS: Loratadine 10 MG TABLET PO (08:14)
[2022-11-25] MEDS: Losartan Potassium 50 MG TABLET 100 MG PO (08:14)
[2022-11-25] MEDS: Escitalopram Oxalate 20 MG TABLET PO (08:14)
[2022-11-25] MEDS: Furosemide 40 MG TABLET PO (08:14)
[2022-11-25] MEDS: Atorvastatin Calcium 20 MG TABLET PO (08:14)
[2022-11-25] MEDS: amLODIPine Besylate 10 MG TABLET PO (08:14)
[2022-11-25] MEDS: Ascorbic Acid 500 MG TABLET 1000 MG PO ×2 (08:14→22:45)
[2022-11-25] MEDS: polyethylene glycoL 3350 17 GM POWD.PACK PO ×2 (08:15→22:46)
[2022-11-25] MEDS: Multivitamin TABLET 1 TAB PO (08:15)
[2022-11-25] MEDS: Buprenorphine HCL 2 MG TAB.SUBL 4 MG SUBLINGUAL ×2 (08:15→22:46)
[2022-11-25] MEDS: lamoTRIgine 100 MG TABLET 200 MG PO ×2 (08:15→22:45)
[2022-11-25] MEDS: Levothyroxine Sodium 75 MCG TABLET PO (08:15)
[2022-11-25] MEDS: Cholecalciferol (Vitamin D3) 10 MCG TABLET PO (08:15)
[2022-11-25] MEDS: busPIRone HCl 5 MG TABLET PO (08:15)
[2022-11-25] MEDS: Fluticasone Propionate Nasal 16 GM SPRAY 1 SPRAY NOSTRIL-B ×2 (08:16→23:02)
[2022-11-25] MEDS: 0.9 % Sodium Chloride Flush 3 ML SYRINGE IVFLUSH ×2 (08:23→15:56)
--- NOTE | 2022-11-25 09:43 | HO.PM.IMPN ---
Subjective Subjective Date of Service: 11/25/22 Review of Systems Follow-up sepsis/UTI feeling better today Still having acute on chronic pain to back Physical Exam Vital Signs: Vital Signs: Last Vital Signs Temp 97.0 F 11/25/22 07:02 Pulse 60 11/25/22 07:02 Resp 20 11/25/22 07:02 BP 152/67 H 11/25/22 07:02 Pulse Ox 95 11/25/22 07:02 O2 Del Method Room Air 11/25/22 07:02 O2 Flow Rate 2 11/24/22 07:41 BMI result Body Mass Index 25.5 Appearing in no acute distress lung sounds are clear to auscultation heart regular rate rhythm, clear S1, S2 positive bowel sounds, abdomen is soft, nontender neuro patient is alert x3, no focal deficits Objective Data Active Medications Acetaminophen (Acetaminophen 325 Mg Tablet) 650 mg PO Q6H PRN PRN Reason: Pain, Mild (Pain Scale 1-3) Last Admin: 11/24/22 21:07 Dose: 650 mg Documented By: BEVERLEY Amlodipine Besylate (Amlodipine Besylate 10 Mg Tablet) 10 mg PO DAILY [facility]; Protocol Last Admin: 11/25/22 08:14 Dose: 10 mg Documented By: GENA Ascorbic Acid (Ascorbic Acid 500 Mg Tablet) 1,000 mg PO BID [facility] Last Admin: 11/25/22 08:14 Dose: 1,000 mg Documented By: GENA Atorvastatin Calcium (Atorvastatin Calcium 20 Mg Tablet) 20 mg PO DAILY [facility] Last Admin: 11/25/22 08:14 Dose: 20 mg Documented By: GENA Bisacodyl (Bisacodyl 10 Mg Supp.Rect) 10 mg CO DAILY PRN PRN Reason: Constipation Buprenorphine HCl (Buprenorphine Hcl 2 Mg Tab.Subl) 4 mg SUBLINGUAL TID [facility] Last Admin: 11/25/22 08:15 Dose: 4 mg Documented By: GENA Buspirone HCl (Buspirone Hcl 5 Mg Tablet) 5 mg PO DAILY [facility] Last Admin: 11/25/22 08:15 Dose: 5 mg Documented By: GENA Buspirone HCl (Buspirone Hcl 5 Mg Tablet) 15 mg PO BEDTIME [facility] Last Admin: 11/24/22 21:07 Dose: 15 mg Documented By: BEVERLEY Escitalopram Oxalate (Escitalopram Oxalate 20 Mg Tablet) 20 mg PO DAILY [facility] Last Admin: 11/25/22 08:14 Dose: 20 mg Documented By: GENA Fluticasone Propionate (Fluticasone Propionate Nasal 16 Gm [place]) 1 spray NOSTRIL-B BID [facility] Last Admin: 11/25/22 08:16 Dose: 1 spray Documented By: GENA Furosemide (Furosemide 40 Mg Tablet) 40 mg PO DAILY [facility]; Protocol Last Admin: 11/25/22 08:14 Dose: 40 mg Documented By: GENA Hydromorphone HCl (Hydromorphone Hcl 0.5 Mg/0.5 Ml Syringe) 0.5 mg IVPUSH Q4H PRN; Protocol PRN Reason: Pain, Mild (Pain Scale 1-3) Last Admin: 11/25/22 01:59 Dose: 0.5 mg Documented By: BEVERLEY Ceftriaxone Sodium 1 gm/ (Sodium Chloride) 50 mls @ 100 mls/hr IV Q24H [facility] Last Infusion: 11/25/22 07:47 Dose: 0 mls/hr Documented By: GENA Lamotrigine (Lamotrigine 100 Mg Tablet) 200 mg PO BID [facility] Last Admin: 11/25/22 08:15 Dose: 200 mg Documented By: GENA Latanoprost (Latanoprost 0.005 % Ophth Elena 2.5 Ml Drops) 1 drop EYE-BOTH BEDTIME [facility] Last Admin: 11/24/22 21:31 Dose: Not Given Documented By: BEVERLEY Non-Admin Reason: pt took home med Levothyroxine Sodium (Levothyroxine Sodium 75 Mcg Tablet) 75 mcg PO DAILY [facility] Last Admin: 11/25/22 08:15 Dose: 75 mcg Documented By: GENA Loratadine (Loratadine 10 Mg Tablet) 10 mg PO DAILY [facility] Last Admin: 11/25/22 08:14 Dose: 10 mg Documented By: GENA Lorazepam (Lorazepam 0.5 Mg Tablet) 0.5 mg PO DAILY PRN PRN Reason: Anxiety Losartan Potassium (Losartan Potassium 50 Mg Tablet) 100 mg PO DAILY [facility]; Protocol Last Admin: 11/25/22 08:14 Dose: 100 mg Documented By: GENA Melatonin (Melatonin 3 Mg Tablet) 6 mg PO BEDTIME PRN PRN Reason: Insomnia Multivitamins/Vitamin C (Multivitamin Tablet) 1 tab PO DAILY [facility] Last Admin: 11/25/22 08:15 Dose: 1 tab Documented By: GENA Omeprazole (Omeprazole 20 Mg Capsule.) 20 mg PO BID@0630,1630 [facility] Last Admin: 11/25/22 06:10 Dose: 20 mg Documented By: BEVERLEY Ondansetron HCl (Ondansetron Hcl 4 Mg/2 Ml Vial) 4 mg IVPUSH Q8H PRN PRN Reason: Nausea and Vomiting Oxycodone HCl (Oxycodone Hcl Immed Release 5 Mg Tablet) 5 mg PO Q4H PRN PRN Reason: Pain, Mild (Pain Scale 1-3) Last Admin: 11/25/22 06:09 Dose: 5 mg Documented By: BEVERLEY Pharmacy Consult (Consult Rx Perform Med Rec) 1 each MISCELLANE ONCE PRN PRN Reason: Consult order Polyethylene Glycol (Polyethylene Glycol 3350 17 Gm Powd.Pack) 17 gm PO BID [facility] Last Admin: 11/25/22 08:15 Dose: 17 gm Documented By: GENA Psyllium Hydrophilic Mucilloid (Psyllium Seed 3.4 Gm Powd.Pack) 3.4 gm PO BID [facility] Last Admin: 11/25/22 08:15 Dose: 3.4 gm Documented By: GENA Sodium Chloride (0.9 % Sodium Chloride Flush 3 Ml Syringe) 3 ml IVFLUSH QSHIFT [facility] Last Admin: 11/25/22 08:23 Dose: 3 ml Documented By: GENA Vitamin D (Cholecalciferol (Vitamin D3) 10 Mcg Tablet) 10 mcg PO DAILY [facility] Last Admin: 11/25/22 08:15 Dose: 10 mcg Documented By: GENA Labs 11/23/22 06:07 11/25/22 05:54 Labs: Laboratory Results - last 24 hr 11/25/22 05:54 Anion Gap 12 Estim Creat Clear Calc 62.5 Estimated GFR > 60 Random Glucose 99 Calcium 9.3 Microbiology Microbiology Results: Microbiology 11/22/22 22:34 Urine Culture - Final Urine clean catch - Urine roman top Escherichia coli 11/22/22 21:30 Blood Culture - Preliminary Blood - Venous Gram negative nicole 11/22/22 21:30 Blood Culture - Preliminary Blood - Venous Gram negative nicole Assessment and Plan (1) Acute UTI: Status: Acute Plan 77-year-old female with pertinent history of essential hypertension, mixed hyperlipidemia, peripheral neuropathy, hypothyroidism, mood disorder, CARMEN on BiPAP, history of lymphoma status post radiation apartment for evaluation of fevers and chills. GNR bacteremia with sepsis likely secondary to acute UTI.? Patient resuscitated with IV crystalloids.? continue IV Rocephin.? follow final cultures Chronic neuropathic pain. Continue home po medications and add opiate for better pain control PT rec STR however patient wants to go home Rt hip xray neg for acute fracture Essential hypertension.? Hold home antihypertensives in the setting of sepsis.? Resume as appropriate Mixed hyperlipidemia.? On statin Hyponatremia mild likely secondary to hypovolemia encourage oral intake Hypothyroidism.? On Synthroid CARMEN on CPAP Thrombocytopenia, chronic defer lovenox DVT prophylaxis: SCDs DNR/DNI. Attending Dr. Robert ALCOCER once final cx comes back dc home with oral abx continued hospital stay for IV antibiotics, pain management Time Spent With Patient Time: Total time managing care of this patient today ____ minutes. Quality Stroke Does the patient have a stroke diagnosis?: No VTE Prior VTE?: No VTE Risk Level:: Medical - moderate - high VTE Device Contraindication: N/A - Device Ordered VTE Drug Contraindication: Treatment Not Indicated
--- NOTE | 2022-11-25 10:20 | MHC.CM.PN ---
Per ROUNDS discussion, Patient is not yet medically cleared for dc (still waiting for final cultures); Patient may benefit from a PT Eval to assist with disposition. CM will follow.
[2022-11-25 11:30] VITALS: BP 152/67; PULSE 60; O2SAT 95
[2022-11-25] MEDS: Magnesium Hydrox/Alum Hydrox 30 ML ORAL.SUSP PO (12:10)
[2022-11-25] MEDS: Acetaminophen 325 MG TABLET 650 MG PO (12:20)
[2022-11-25 15:18] VITALS: BP 131/60; PULSE 59; RESP 17; TEMP 36.6; O2SAT 97
--- NOTE | 2022-11-25 16:41 | P.DS_ITS ---
DS: Providers Provider Date of admission: 11/22/22 22:53 Primary care physician: Debi Cisse MD DS: Diagnosis Discharge Diagnosis (1) Acute UTI: Status: Acute DS: Summary Hospital Course Hospital Course: History and physical as per admitting provider. This is a 77-year-old female with pertinent history of essential hypertension, mixed hyperlipidemia, peripheral neuropathy, hypothyroidism, mood disorder, CARMEN on BiPAP, history of lymphoma status post radiation apartment for evaluation of fevers and chills.? Patient states it started 2 days prior to presentation.? She also has generalized malaise.? Does endorse increase in urinary frequency.? No hesitancy or dysuria.? Patient denies abdominal discomfort, palpitations, chest discomfort, shortness of breath, changes in bowel habits.? She also complains of chronic radiating pain of the right hip. In the emergency department, patient was found to be septic E coli bacteremia and UTI. Treated with IV Rocephin. Home to complete a total 14 days cefuroxime. Chronic neuropathic pain. Treated with IV narcotics while inpatient. Continue home medications. Physical therapy at home. Hypertension. Continue home medications Hyperlipidemia. Statin Hyponatremia. Mild, secondary to hypovolemia encouraged oral intake. Hypothyroidism. Continue levothyroxine Obstructive sleep apnea. On CPAP Thrombocytopenia. Chronic Time Spent with Patient Time attestation: Total time managing care of this patient today ____ minutes. Physical Exam Vital Signs: Vital Signs: Last Vital Signs Temp 97.8 F 11/25/22 15:18 Pulse 59 11/25/22 15:18 Resp 17 11/25/22 15:18 BP 131/60 11/25/22 15:18 Pulse Ox 97 11/25/22 15:18 O2 Del Method Room Air 11/25/22 15:18 O2 Flow Rate 2 11/24/22 07:41 BMI result Body Mass Index 25.5 DS: Data Data Completed and Pending Labs on day of discharge: Laboratory Results - last 24 hr 11/25/22 05:54 Sodium 135 Potassium 3.4 Chloride 98 Carbon Dioxide 28 Anion Gap 12 BUN 19 H Creatinine 0.74 Estim Creat Clear Calc 62.5 Estimated GFR > 60 Random Glucose 99 Calcium 9.3 Discharge Plan Discharge Anticipated Discharge Date/Time: 11/25/22 13:37 Discharge Diagnosis: E coli bacteremia E coli UTI Referrals: Debi Cisse MD [Primary Care Provider] - 1 Week Discharge Medications: New cefuroxime axetil 500 mg tablet 500 mg PO BID Qty: 22 0RF Continued furosemide 40 mg tablet 40 mg PO DAILY atorvastatin 20 mg tablet 20 mg PO DAILY methenamine hippurate 1 gram tablet 1 g PO BID cetirizine 10 mg Tablet 10 mg PO DAILY amlodipine 10 mg tablet 10 mg PO DAILY losartan 100 mg Tablet 100 mg PO DAILY latanoprost 0.005 % Drops 1 drp OPHTHALMIC (EYE) BEDTIME buspirone 5 mg Tablet 5 mg PO DAILY ascorbic acid (vitamin C) 1,000 mg Tablet 1,000 mg PO BID lamotrigine 200 mg Tablet 200 mg PO BID polyethylene glycol 3350 [Miralax] 17 gram Powder In Packet 17 g PO BID meloxicam 15 mg Tablet 15 mg PO DAILY psyllium Packet 1 packet PO BID Rx Instructions: mix into at least 8 oz of water or juice before administering levothyroxine 75 mcg Tablet 75 mcg PO DAILY lorazepam 0.5 mg Tablet 0.5 mg PO DAILY PRN (Reason: Anxiety) omeprazole 20 mg Capsule,Delayed Release(Dr/Ec) 20 mg PO BID@0630,1630 escitalopram oxalate 20 mg Tablet 20 mg PO DAILY multivitamin Tablet 1 tab PO DAILY cholecalciferol (vitamin D3) 10 mcg (400 unit) Tablet 10 mcg PO DAILY buprenorphine HCl 2 mg Tablet, Sublingual 4 mg SUBLINGUAL TID acetaminophen 500 mg Tablet 1,000 mg PO TID PRN (Reason: Pain, Mild) lidocaine 5 % Adhesive Patch,Medicated 3 patch TOPICAL DAILY Rx Instructions: leave on most painful area for up to 12 hrs fluticasone propionate 50 mcg/actuation [place],Suspension 1 spray INTRANASAL BID Rx Instructions: administer into each nostril Lactobacillus acidophilus Tablet,Chewable 2 tab PO BID buspirone 5 mg Tablet 15 mg PO BEDTIME atenolol 100 mg Tablet 100 mg PO BID Diet: Advance to usual diet Activity on Discharge: As tolerated Stand Alone Forms: Patient Portal Discharge page Care Plan Goals: Complete resolution of symptoms Health Concerns: E coli bacteremia E coli UTI Plan of Treatment: Follow-up with primary care provider as needed Take all medications as prescribed Assessment: See discharge summary
[2022-11-25] MEDS: busPIRone HCl 5 MG TABLET 15 MG PO (22:45)
[2022-11-25] MEDS: cefTRIAXone sodium 1 GM in 0.9 % Sodium Chloride 50 ML IV (22:46)
[2022-11-26] VITALS: BP 166/74; PULSE 61; RESP 18; TEMP 36.6; O2SAT 98
[2022-11-26] MEDS: oxyCODONE HCl Immed Release 5 MG TABLET PO ×2 (01:43→10:57)
[2022-11-26] MEDS: Omeprazole 20 MG CAPSULE.DR PO (06:07)
[2022-11-26] MEDS: lamoTRIgine 100 MG TABLET 200 MG PO (08:41)
[2022-11-26] MEDS: Furosemide 40 MG TABLET PO (08:41)
[2022-11-26] MEDS: 0.9 % Sodium Chloride Flush 3 ML SYRINGE IVFLUSH (08:41)
[2022-11-26] MEDS: HYDROmorphone HCl 0.5 MG/0.5 ML SYRINGE IVPUSH (08:41)
[2022-11-26] MEDS: Cholecalciferol (Vitamin D3) 10 MCG TABLET PO (08:42)
[2022-11-26] MEDS: Escitalopram Oxalate 20 MG TABLET PO (08:42)
[2022-11-26] MEDS: busPIRone HCl 5 MG TABLET PO (08:42)
[2022-11-26] MEDS: Levothyroxine Sodium 75 MCG TABLET PO (08:42)
[2022-11-26] MEDS: Multivitamin TABLET 1 TAB PO (08:42)
[2022-11-26] MEDS: Loratadine 10 MG TABLET PO (08:42)
[2022-11-26] MEDS: Losartan Potassium 50 MG TABLET 100 MG PO (08:42)
[2022-11-26] MEDS: Atorvastatin Calcium 20 MG TABLET PO (08:43)
[2022-11-26] MEDS: amLODIPine Besylate 10 MG TABLET PO (08:52)
[2022-11-26] MEDS: Ascorbic Acid 500 MG TABLET 1000 MG PO (08:53)
[2022-11-26] MEDS: Fluticasone Propionate Nasal 16 GM SPRAY 1 SPRAY NOSTRIL-B (10:15)
--- NOTE | 2022-11-26 10:33 | MHC.CM.PN ---
IMM 11/26/22 Patient is discharged to home. [facility] will resume services. Patient has arranged for her dtr to provide transportation home.
--- NOTE | 2022-11-26 10:40 | PM.DS ---
DS: Providers Provider Date of Service: 11/26/22 Date of admission: 11/22/22 22:53 Primary care physician: Debi Cisse MD Attending physician on discharge: Jakub Jones Discharging clinician: Mary Rodriguez DS: Diagnosis Discharge Diagnosis (1) Acute UTI: Status: Acute DS: Summary Hospital Course Hospital Course: History and physical as per admitting provider. This is a 77-year-old female with pertinent history of essential hypertension, mixed hyperlipidemia, peripheral neuropathy, hypothyroidism, mood disorder, CARMEN on BiPAP, history of lymphoma status post radiation apartment for evaluation of fevers and chills.? Patient states it started 2 days prior to presentation.? She also has generalized malaise.? Does endorse increase in urinary frequency.? No hesitancy or dysuria.? Patient denies abdominal discomfort, palpitations, chest discomfort, shortness of breath, changes in bowel habits.? She also complains of chronic radiating pain of the right hip. In the emergency department, patient was found to be septic sepsis secondary to E coli bacteremia and UTI. Met sepsis criteria with fever and HR above 90. Treated with IV Rocephin. Has remained afebrile since 11/23. Will be transitioned to complete a total 14 days cefuroxime. Chronic neuropathic pain. Treated with IV narcotics while inpatient. Continue home medications. Seen by PT recommended SNF. patient opted to return home with home Physical therapy. Hypertension. Continue home medications Hyperlipidemia. Statin Hyponatremia. Mild, secondary to hypovolemia encouraged oral intake. Resolved. Hypothyroidism. Continue levothyroxine Obstructive sleep apnea. On CPAP Thrombocytopenia. Chronic. outpatient follow up Time Spent with Patient Time attestation: Total time managing care of this patient today ____ minutes. Discharge coordination time: Greater than 30 minutes Quality: Safe Use of Opioids Does Pt have an Active Cancer Diagnosis on the Problem List?: No Quality: Stroke Does the patient have a stroke diagnosis?: No Physical Exam Vital Signs: Vital Signs: Last Vital Signs Temp 98 F 11/26/22 00:00 Pulse 61 11/26/22 00:00 Resp 18 11/26/22 00:00 BP 166/74 H 11/26/22 00:00 Pulse Ox 98 11/26/22 00:00 O2 Del Method Nasal Cannula 11/26/22 00:00 O2 Flow Rate 2 11/26/22 00:00 BMI result Body Mass Index 25.5 Const: General: cooperative, comfortable, alert and awake Nutritional Appearance: average body habitus Orientation/consciousness: patient oriented x3 Resp: Effort & Inspection: normal respiratory effort, able to speak in complete sentences, no respiratory distress and no use of accessory muscles Cardio: Rate: regular rate GI: Inspection: No distended Palpation (GI): Soft to palpation and nontender Neuro: Other: grossly nonfocal General: patient oriented x3 Extrem: General: Yes no pedal edema Discharge Plan Discharge Anticipated Discharge Date/Time: 11/26/22 10:38 Patient Disposition: Home Health Service Discharge Diagnosis: E coli bacteremia E coli UTI Referrals: Angel FLORES [Outside] - 1 Week Debi Cisse MD [Primary Care Provider] - 1 Week Discharge Medications: New cefuroxime axetil 500 mg tablet 500 mg PO BID Qty: 22 0RF Continued furosemide 40 mg tablet 40 mg PO DAILY atorvastatin 20 mg tablet 20 mg PO DAILY methenamine hippurate 1 gram tablet 1 g PO BID cetirizine 10 mg Tablet 10 mg PO DAILY amlodipine 10 mg tablet 10 mg PO DAILY losartan 100 mg Tablet 100 mg PO DAILY latanoprost 0.005 % Drops 1 drp OPHTHALMIC (EYE) BEDTIME buspirone 5 mg Tablet 5 mg PO DAILY ascorbic acid (vitamin C) 1,000 mg Tablet 1,000 mg PO BID lamotrigine 200 mg Tablet 200 mg PO BID polyethylene glycol 3350 [Miralax] 17 gram Powder In Packet 17 g PO BID meloxicam 15 mg Tablet 15 mg PO DAILY psyllium Packet 1 packet PO BID Rx Instructions: mix into at least 8 oz of water or juice before administering levothyroxine 75 mcg Tablet 75 mcg PO DAILY lorazepam 0.5 mg Tablet 0.5 mg PO DAILY PRN (Reason: Anxiety) omeprazole 20 mg Capsule,Delayed Release(Dr/Ec) 20 mg PO BID@0630,1630 escitalopram oxalate 20 mg Tablet 20 mg PO DAILY multivitamin Tablet 1 tab PO DAILY cholecalciferol (vitamin D3) 10 mcg (400 unit) Tablet 10 mcg PO DAILY buprenorphine HCl 2 mg Tablet, Sublingual 4 mg SUBLINGUAL TID acetaminophen 500 mg Tablet 1,000 mg PO TID PRN (Reason: Pain, Mild) lidocaine 5 % Adhesive Patch,Medicated 3 patch TOPICAL DAILY Rx Instructions: leave on most painful area for up to 12 hrs fluticasone propionate 50 mcg/actuation [place],Suspension 1 spray INTRANASAL BID Rx Instructions: administer into each nostril Lactobacillus acidophilus Tablet,Chewable 2 tab PO BID buspirone 5 mg Tablet 15 mg PO BEDTIME atenolol 100 mg Tablet 100 mg PO BID Discharge Orders: Discharge Order (Routine); Ordered 11/26/22 Ordered By: Mary Rodriguez Diet: Advance to usual diet Activity on Discharge: As tolerated Stand Alone Forms: Patient Portal Discharge page Care Plan Goals: Complete resolution of symptoms Health Concerns: E coli bacteremia E coli UTI Plan of Treatment: Complete course of antibiotics as prescribed Follow-up with primary care provider as needed Assessment: See discharge summary
--- NOTE | 2022-11-26 10:48 | P.F2F_ITS ---
Service Date Service Date: 11/26/22 Encounter Date of encounter: 11/26/22 Reasons for Services Signs and symptoms assessed: needs PT for deconditioning, impaired gait, standing balance, muscle imbalance etc Reason for physical therapy: home safety and mobility, therapeutic exercises and gait/transfer training MD Overseeing Care: Debi Cisse Homebound: Leaving the home is medically contraindicated at this time without the asist of a device and/or another person due th the listed conditions above and below. Reason homebound: unsteady gait / fall risk and weakness related to hospital stay Certification: Based on the above findings, I certify that this patient is confined to the home and needs intermittent retirement care, physical therapy and/or speech therapy, or continues to need occupational therapy. The patient is under my care, and I have initiated the establishment of the plan of care. The patient will be followed by a physician who will periodically review the plan of care. Time Spent With Patient Time: Total time managing care of this patient today ____ minutes.
[2022-11-26] MEDS: Acetaminophen 325 MG TABLET 650 MG PO (10:53)
== END 2022-11-26 13:31 | disposition home health service (06) | DRG 872 ==
LOC: HO.ED 22:53 → HO.EDOVER 22:58 → HO.IMC 11-23 00:04 → HO.S3 11-26 00:33
PROVIDERS: Nurse Practitioner Acute Care; Admitting Provider Student in an Organized Health Care Education/Training Program; Emergency Provider Emergency Medicine Emergency Medical Services; PCP Family Medicine; Visit Provider Physician Assistant Medical
DX: A41.51 Sepsis due to Escherichia coli [E. coli] (principal); N39.0 Urinary tract infection, site not specified; E87.1 Hypo-osmolality and hyponatremia; E03.9 Hypothyroidism, unspecified; G47.33 Obstructive sleep apnea (adult) (pediatric); F39 Unspecified mood [affective] disorder; Z66 Do not resuscitate; E86.1 Hypovolemia; D69.6 Thrombocytopenia, unspecified; G62.9 Polyneuropathy, unspecified; E78.2 Mixed hyperlipidemia; Z88.2 Allergy status to sulfonamides; Z79.51 Long term (current) use of inhaled steroids; Z79.890 Hormone replacement therapy; Z79.899 Other long term (current) drug therapy
CPT/HCPCS: 36415; 71045; 73502; 80048; 80076; 81001; 83605; 83690; 85007; 85025; 85027; 87040; 87077; 87086; 87088; 87186; 87205; 93005; 94660; 97162; 97530; 99285; J0571; J0696; J1170; J1885

== ENCOUNTER 2022-12-12 00:54 | Inpatient (IN) | payer MEDICARE, OTHER, SELFPAY ==
[2022-12-12] VITALS (8 sets, daily range): BP systolic 130–172; BP diastolic 54–73; PULSE 56–81; RESP 14–20; TEMP 36.2–36.9; O2SAT 93–97; BMI 27.3
--- NOTE | ~2022-12-12 | CT_ITS ---
EXAMINATION: CT ABDOMEN AND PELVIS WITHOUT CONTRAST CLINICAL INFORMATION: Flank pain, UTI, fall onto right side COMPARISON: None available. TECHNIQUE: Multidetector volumetric imaging was performed from the superior aspect of the liver through the pubic symphysis. Sagittal and coronal reformatted images were obtained on the technologist's workstation. This CT examination was performed using dose optimization techniques as appropriate, variously including the following: *Automated exposure control *Adjustment of mA and/or kV according to patient size (this includes
[2022-12-12 01:51] LABS: MANUAL DIFF FLAG NO
[2022-12-12 01:53] LABS: Basophils Percent Auto 0.8 % (0-2); Eosinophils Absolute Auto 0.1 X10*3/uL (0.0-0.4); Eosinophils Percent Auto 2.7 % (0-4); Hematocrit 34.3 % (37.0-47.0); Hemoglobin 11.4 g/dl (12.0-16.0); Imm Gran Abs Auto 0.02 X10*3/uL (0.00-0.03); Imm Gran Pct Auto 0.4 % (0.0-0.4); Lymphocytes Absolute Auto 1.2 X10*3/uL (1.2-4.9); Lymphocytes Percent Auto 21.9 % (20-40); Mean Corpuscular HGB Conc 33.2 g/dl (31.0-35.0); Mean Corpuscular Hemoglobin 30.3 pg (27.0-33.0); Mean Corpuscular Volume 91.2 fL (80.0-98.0); Monocytes Absolute Auto 0.7 X10*3/uL (0.1-1.2); Monocytes Percent Auto 12.4 % (2-11); Neutrophils Absolute Auto 3.2 x10*3/uL (2.0-8.3); Neutrophils Percent Auto 61.8 % (45-73); Platelet Count 147 X10*3/uL (160-400); Red Blood Count 3.76 X10*6/uL (4.20-5.50); Red Cell Distribution Width 13.1 % (11.0-16.0); White Blood Count 5.2 X10*3/uL (4.8-10.8)
[2022-12-12 02:12] LABS: Alanine Aminotransferase 24 U/L (0-31); Alkaline Phosphatase 53 U/L (39-117); Anion Gap 14 (12-20); Aspartate Amino Transferase 30 U/L (5-31); Bilirubin Direct 0.1 mg/dL (0.0-0.5); Bilirubin Total 0.3 mg/dL (0.0-1.0); Blood Urea Nitrogen 28 mg/dL (9-16); Calcium 9.7 mg/dL (8.4-10.2); Carbon Dioxide 30 mmol/L (22-29); Chloride 94 mmol/L (96-108); Creatinine Clr Calc Pharmacy 52.4; Estimated Glomerular Filt Rate 60; Glucose Random 85 mg/dL (60-115); Lipase 43 U/L (8-78); Potassium 4.5 mmol/L (3.3-5.1); Sodium 133 mmol/L (135-145); Total Protein 7.3 g/dL (6.5-8.0)
--- NOTE | 2022-12-12 02:40 | ECG_ITS ---
Test Reason : CHEST PAIN Blood Pressure : / mmHG Vent. Rate : 073 BPM Atrial Rate : 073 BPM P-R Int : 174 ms QRS Dur : 084 ms QT Int : 404 ms P-R-T Axes : 040 026 054 degrees QTc Int : 445 ms Normal sinus rhythm Normal ECG When compared with ECG of 22-NOV-2022 21:57, No significant change was found Referred By: Chiara Allison Electronically Signed By:Rodger Shaw
--- NOTE | 2022-12-12 02:42 | ED.GENADULT ---
HPI - General Adult General Chief complaint: Abdominal Pain Stated complaint: UTI? ABD PAIN Time Seen by Provider: 12/12/22 02:30 Source: patient and family (Daughter) Mode of arrival: wheelchair Limitations: no limitations History of Present Illness HPI narrative: Patient comes to the emergency room complaining of right-sided flank pain for couple of days. Patient denies hematuria or dysuria. Patient was discharged on November 26 from this hospital for UTI sepsis. Patient was sent home with p.o. cefuroxime. Patient denies fever or chills. Related Data Home Medications Medication Instructions Recorded Confirmed Lactobacillus acidophilus 2 tab PO BID 10/21/22 11/23/22 acetaminophen 500 mg tablet 1,000 mg PO TID PRN Pain, Mild 10/21/22 11/23/22 amlodipine 10 mg tablet 10 mg PO DAILY 10/21/22 11/23/22 ascorbic acid (vitamin C) 1,000 mg 1,000 mg PO BID 10/21/22 11/23/22 tablet atorvastatin 20 mg tablet 20 mg PO DAILY 10/21/22 11/23/22 buprenorphine HCl 2 mg sublingual 4 mg sublingual TID 10/21/22 11/23/22 tablet buspirone 5 mg tablet 5 mg PO DAILY 10/21/22 11/23/22 cetirizine 10 mg tablet 10 mg PO DAILY 10/21/22 11/23/22 cholecalciferol (vitamin D3) 10 10 mcg PO DAILY 10/21/22 11/23/22 mcg (400 unit) tablet escitalopram oxalate 20 mg tablet 20 mg PO DAILY 10/21/22 11/23/22 fluticasone propionate 50 1 spray intranasal BID 10/21/22 11/23/22 mcg/actuation nasal spray,suspension furosemide 40 mg tablet 40 mg PO DAILY 10/21/22 11/23/22 lamotrigine 200 mg tablet 200 mg PO BID 10/21/22 11/23/22 latanoprost 0.005 % eye drops 1 drp ophthalmic (eye) BEDTIME 10/21/22 11/23/22 levothyroxine 75 mcg tablet 75 mcg PO DAILY 10/21/22 11/23/22 lidocaine 5 % topical patch 3 patch topical DAILY 10/21/22 11/23/22 lorazepam 0.5 mg tablet 0.5 mg PO DAILY PRN Anxiety 10/21/22 11/23/22 losartan 100 mg tablet 100 mg PO DAILY 10/21/22 11/23/22 meloxicam 15 mg tablet 15 mg PO DAILY 10/21/22 11/23/22 methenamine hippurate 1 gram tablet 1 g PO BID 10/21/22 11/23/22 multivitamin 1 tab PO DAILY 10/21/22 11/23/22 omeprazole 20 mg capsule,delayed 20 mg PO BID@0630,1630 10/21/22 11/23/22 release polyethylene glycol 3350 17 gram 17 g PO BID 10/21/22 11/23/22 oral powder packet (Miralax) psyllium 1 packet PO BID 10/21/22 11/23/22 atenolol 100 mg tablet 100 mg PO BID 11/23/22 11/23/22 buspirone 5 mg tablet 15 mg PO BEDTIME 11/23/22 11/23/22 Previous Rx's Medication Instructions Recorded cefuroxime axetil 500 mg tablet 500 mg PO BID #22 tabs 11/25/22 Allergies Allergy/AdvReac Type Severity Reaction Status Date / Time atropine [From ] Allergy Unknown Verified 11/22/22 21:16 clams Allergy Unknown Verified 11/22/22 21:16 crab Allergy Unknown Verified 11/22/22 21:16 enalaprilat [From Vasotec] Allergy Blister Verified 11/22/22 21:16 hyoscyamine [From ] Allergy Unknown Verified 11/22/22 21:16 phenobarbital Allergy Unknown Verified 11/22/22 21:16 scopolamine [From ] Allergy Unknown Verified 11/22/22 21:16 shellfish derived Allergy Unknown Verified 11/22/22 21:16 Sulfa (Sulfonamide Allergy Unknown Verified 11/22/22 21:16 Antibiotics) Review of Systems Review of Systems: Constitutional : No Weight loss, No Fever, No Chills, No Night Sweats, No Fatigue, No Malaise ENT/Mouth : No Hearing loss, No Ear Pain, No Nasal Congestion, No Sinus Pain, No Hoarseness, No sore throat, No Rhinorrhea, No Swallowing Difficulty Eyes: No Eye Pain, No Swelling, No Redness, No Foreign Body, No Discharge, No Vision Changes Cardiovascular : No Chest Pain, No SOB, No Dyspnea on Exertion, No Orthopnea, No Edema, No Palpitations Respiratory : No Cough, No Sputum, No Wheezing, No Smoke Exposure, No Dyspnea Gastrointestinal : No Nausea, No Vomiting, No Diarrhea, No Constipation, No abdominal Pain, No Hematochezia, No Melena Genitourinary : no irregular bleeding, No Dysuria, No Urinary Frequency, No Hematuria, No Urinary Incontinence, No Urgency, complaining of right-sided Flank Pain, No Urinary Flow Changes, No Hesitancy Musculoskeletal : No joint pain, No Myalgias, No Joint Swelling Skin : No Skin Lesions, No rash Neuro : No Weakness, No Numbness, No Paresthesias, No Loss of Consciousness, No Dizziness, No Headache Psych : No Anxiety/Panic, No Depression, No SI/HI/AH/VH, No Social Issues, Heme/Lymph: No Bruising, No Bleeding,No Lymphadenopathy Endocrine : No Polyuria, No Polydipsia, No Temperature Intolerance PMFSH Past Medical History Medical History Acute hip pain Anxiety E coli bacteremia GERD (gastroesophageal reflux disease) Hyperlipidemia Hypertension Hypothyroidism Left arm weakness Lymphoma CARMEN on CPAP Peripheral neuropathy Recurrent UTI Resting tremor Restless leg syndrome Urinary incontinence Surgical History S/P radiation therapy Social History Social History Household Members: None Housing: Apartment Housing Other:: senior apartment. Do you presently have visiting nurse or other home services: Yes ([facility] thru [facility], [id number]) Patient Tobacco Use Status: Never used Tobacco Smoked in Last 30 Days: No Use of substances other than those prescribed or required for medical reasons: No Advance Directives: No Advance Directives Information Provided: Yes service: No Current occupational status: retired Physical Exam ED Vital Signs: Vital Signs - 24 hr 12/12/22 01:13 12/12/22 04:49 Temperature 98.2 F 98.3 F Pulse Rate 81 65 Respiratory Rate 17 14 Blood Pressure 145/55 H 136/54 L Pulse Oximetry 97 94 Oxygen Delivery Method Room Air Room Air BMI result Body Mass Index 27.3 Const Other: Appearance: Alert. Oriented X3. No acute distress. Eyes: Pupils equal, round and reactive to light. ENT: Pharynx normal. Neck: Normal inspection. Neck supple. No lymph nodes noted. No crepitus CVS: Normal heart rate and rhythm. Pulses normal. Normal S1 and S2, reproducible chest pain to palpation Respiratory: No respiratory distress. Breath sounds normal. No Wheezing. No rales Abdomen: Soft and nontender. No rigidity. No distention. , very mild CVA tenderness on the right Skin: Skin warm and dry. Normal skin color. Normal skin turgor. Extremities: No lower extremity edema. No Lacerations. No Rash Neuro: Oriented X 3. No motor deficit. No sensory deficit. Moving all extremities. No slurred speech. CN 2 through 12 grossly intact Psych: calm, cooperative, normal affect Course Course Course Narrative: -while I was speaking with the patient, she mentioned that she developed chest pain, lasted for a few seconds and then self-resolved -last time when patient was admitted for sepsis, patient's white blood cell count was normal, were still waiting for urinalysis. Patient requesting to be straight cath -patient requesting chronic pain radiating from the lumbar area down to the legs, patient given 1 dose of morphine. Medications Administered Discontinued Medications Generic Name Dose Route Start Last Admin Trade Name Freq PRN Reason Stop Dose Admin Ceftriaxone Sodium 1 gm/ 50 mls @ 100 mls/hr 12/12/22 04:58 12/12/22 05:25 Sodium Chloride IV 12/12/22 05:27 100 mls/hr ONCE ONE Administration Morphine Sulfate 1 mg 12/12/22 03:09 12/12/22 03:29 Morphine Sulfate 2 Mg/Ml Cartridge IVPUSH 12/12/22 03:10 1 mg ONCE ONE Administration Protocol Medical Decision Making Medical Decision Making [facility] Narrative: -I reviewed the labs of the patient, patient has a UTI, plus history of flank pain, patient likely has pyelonephritis. Last night the patient was admitted, patient was significantly ill without a significant white blood cell count. Therefore, we will treat with ceftriaxone, reviewed patient's notes from previous admissions, patient is susceptible to ceftriaxone -sepsis is not suspected at this time, vitals stable. -I discussed the patient with Dr. Jha, patient being admitted Differential Diagnosis Differential Diagnoses: The differential diagnosis associated with the presentation includes (UTI, CVA, musculoskeletal) Admission/Observation Consideration of admission/observation: Escalation of care including admission/observation considered Consult Healthcare Provider Management of the patient was discussed with: Hospitalist Lab Data MDM Lab Attestation statement: I reviewed the patient's lab results. 12/12/22 01:47 12/12/22 01:47 Labs: Lab Results 12/12/22 12/12/22 12/12/22 Range/Units 01:47 01:47 01:47 WBC 5.2 (4.8-10.8) X10*3/uL RBC 3.76 L (4.20-5.50) X10*6/uL Hgb 11.4 L (12.0-16.0) g/dl Hct 34.3 L (37.0-47.0) % MCV 91.2 (80.0-98.0) fL MCH 30.3 (27.0-33.0) pg MCHC 33.2 (31.0-35.0) g/dl RDW 13.1 (11.0-16.0) % Plt Count 147 L D (160-400) X10*3/uL MPV 9.0 L (9.4-12.3) fL Immature Gran % (Auto) 0.4 (0.0-0.4) % Neut % (Auto) 61.8 (45-73) % Lymph % (Auto) 21.9 (20-40) % Rock % (Auto) 12.4 H (2-11) % Eos % (Auto) 2.7 (0-4) % Baso % (Auto) 0.8 (0-2) % Lymph # (Auto) 1.2 (1.2-4.9) X10*3/uL Rock # (Auto) 0.7 (0.1-1.2) X10*3/uL Eos # (Auto) 0.1 (0.0-0.4) X10*3/uL Baso # (Auto) 0.0 (0.0-0.2) X10*3/uL Abs Immat Gran (auto) 0.02 (0.00-0.03) X10*3/uL Absolute Neuts (auto) 3.2 (2.0-8.3) x10*3/uL Absolute Nucleated RBC 0.000 (0.0-0.012) X10*3/uL Nucleated RBC % (auto) 0.0 (0.0-0.2) /100WBC Sodium 133 L (135-145) mmol/L Potassium 4.5 D (3.3-5.1) mmol/L Chloride 94 L (96-108) mmol/L Carbon Dioxide 30 H (22-29) mmol/L Anion Gap 14 (12-20) BUN 28 H (9-16) mg/dL Creatinine 0.91 (0.5-1.4) mg/dL Estim Creat Clear Calc 52.4 Estimated GFR 60 Random Glucose 85 (60-115) mg/dL Calcium 9.7 (8.4-10.2) mg/dL Total Bilirubin 0.3 (0.0-1.0) mg/dL Direct Bilirubin 0.1 (0.0-0.5) mg/dL AST 30 (5-31) U/L ALT 24 (0-31) U/L Alkaline Phosphatase 53 (39-117) U/L Troponin I High Sens 11.0 D (<3.5-17.0) ng/L Total Protein 7.3 (6.5-8.0) g/dL Albumin 4.0 (3.5-5.0) g/dL Lipase 43 (8-78) U/L Urine Color Urine Appearance Urine pH (5.0-9.0) Ur Specific [place] (1.005-1.025) Urine Protein (Neg-Trace) mg/dL Urine Glucose (UA) (Negative) mg/dL Urine Ketones (Negative) mg/dL Urine Blood (Negative) Urine Nitrite (Negative) Ur Leukocyte Esterase (Negative) Urine RBC (0-2) /HPF Urine WBC (0-5) /HPF Ur Squamous Epith Cells (0-2) /HPF Urine Bacteria (None Seen) Hyaline Casts (0-2) /LPF 12/12/22 Range/Units 03:19 WBC (4.8-10.8) X10*3/uL RBC (4.20-5.50) X10*6/uL Hgb (12.0-16.0) g/dl Hct (37.0-47.0) % MCV (80.0-98.0) fL MCH (27.0-33.0) pg MCHC (31.0-35.0) g/dl RDW (11.0-16.0) % Plt Count (160-400) X10*3/uL MPV (9.4-12.3) fL Immature Gran % (Auto) (0.0-0.4) % Neut % (Auto) (45-73) % Lymph % (Auto) (20-40) % Rock % (Auto) (2-11) % Eos % (Auto) (0-4) % Baso % (Auto) (0-2) % Lymph # (Auto) (1.2-4.9) X10*3/uL Rock # (Auto) (0.1-1.2) X10*3/uL Eos # (Auto) (0.0-0.4) X10*3/uL Baso # (Auto) (0.0-0.2) X10*3/uL Abs Immat Gran (auto) (0.00-0.03) X10*3/uL Absolute Neuts (auto) (2.0-8.3) x10*3/uL Absolute Nucleated RBC (0.0-0.012) X10*3/uL Nucleated RBC % (auto) (0.0-0.2) /100WBC Sodium (135-145) mmol/L Potassium (3.3-5.1) mmol/L Chloride (96-108) mmol/L Carbon Dioxide (22-29) mmol/L Anion Gap (12-20) BUN (9-16) mg/dL Creatinine (0.5-1.4) mg/dL Estim Creat Clear Calc Estimated GFR Random Glucose (60-115) mg/dL Calcium (8.4-10.2) mg/dL Total Bilirubin (0.0-1.0) mg/dL Direct Bilirubin (0.0-0.5) mg/dL AST (5-31) U/L ALT (0-31) U/L Alkaline Phosphatase (39-117) U/L Troponin I High Sens (<3.5-17.0) ng/L Total Protein (6.5-8.0) g/dL Albumin (3.5-5.0) g/dL Lipase (8-78) U/L Urine Color Yellow Urine Appearance Cloudy Urine pH 7.0 (5.0-9.0) Ur Specific [place] <= 1.005 (1.005-1.025) Urine Protein Negative (Neg-Trace) mg/dL Urine Glucose (UA) Negative (Negative) mg/dL Urine Ketones Negative (Negative) mg/dL Urine Blood Trace H (Negative) Urine Nitrite Positive H (Negative) Ur Leukocyte Esterase Large (3+) H (Negative) Urine RBC 0-2 (0-2) /HPF Urine WBC >50 H (0-5) /HPF Ur Squamous Epith Cells 0-2 (0-2) /HPF Urine Bacteria 4+ (None Seen) Hyaline Casts 0-2 (0-2) /LPF External Record Review External record reviewed: Inpatient record Critical Care Time Critical Care Time Critical Care Time: Yes Total Critical Care Time: 60 Attestation: I have personally provided critical care time. Time includes review of lab data, radiology results, discussion with consultants, and monitoring for potential decompensation. Intervention performed as documented. Discharge Plan Discharge Clinical Impression: Acute pyelonephritis Patient Disposition: Admitted As Inpatient Prescriptions: No Action furosemide 40 mg tablet 40 mg PO DAILY atorvastatin 20 mg tablet 20 mg PO DAILY methenamine hippurate 1 gram tablet 1 g PO BID cetirizine 10 mg Tablet 10 mg PO DAILY amlodipine 10 mg tablet 10 mg PO DAILY losartan 100 mg Tablet 100 mg PO DAILY latanoprost 0.005 % Drops 1 drp OPHTHALMIC (EYE) BEDTIME buspirone 5 mg Tablet 5 mg PO DAILY ascorbic acid (vitamin C) 1,000 mg Tablet 1,000 mg PO BID lamotrigine 200 mg Tablet 200 mg PO BID polyethylene glycol 3350 [Miralax] 17 gram Powder In Packet 17 g PO BID meloxicam 15 mg Tablet 15 mg PO DAILY psyllium Packet 1 packet PO BID Rx Instructions: mix into at least 8 oz of water or juice before administering levothyroxine 75 mcg Tablet 75 mcg PO DAILY lorazepam 0.5 mg Tablet 0.5 mg PO DAILY PRN (Reason: Anxiety) omeprazole 20 mg Capsule,Delayed Release(Dr/Ec) 20 mg PO BID@0630,1630 escitalopram oxalate 20 mg Tablet 20 mg PO DAILY multivitamin Tablet 1 tab PO DAILY cholecalciferol (vitamin D3) 10 mcg (400 unit) Tablet 10 mcg PO DAILY buprenorphine HCl 2 mg Tablet, Sublingual 4 mg SUBLINGUAL TID acetaminophen 500 mg Tablet 1,000 mg PO TID PRN (Reason: Pain, Mild) lidocaine 5 % Adhesive Patch,Medicated 3 patch TOPICAL DAILY Rx Instructions: leave on most painful area for up to 12 hrs fluticasone propionate 50 mcg/actuation [place],Suspension 1 spray INTRANASAL BID Rx Instructions: administer into each nostril Lactobacillus acidophilus Tablet,Chewable 2 tab PO BID buspirone 5 mg Tablet 15 mg PO BEDTIME atenolol 100 mg Tablet 100 mg PO BID cefuroxime axetil 500 mg tablet 500 mg PO BID Qty: 22 0RF
[2022-12-12 03:25] LABS: Appearance Urine Cloudy; Color Urine Yellow; Glucose Urine UA Negative (Negative); Leukocyte Esterase Urine Large (3+) (Negative); Nitrite Urine Positive (Negative); Specific Gravity - Urine <= 1.005 (1.005-1.025); UMIC TRIGGER UACC YES; Urine Blood Trace (Negative); Urine Ketones Negative (Negative); Urine Protein Negative (Neg-Trace)
[2022-12-12] MEDS: Morphine Sulfate 2 MG/ML CARTRIDGE 1 MG IVPUSH (03:29)
[2022-12-12 03:33] LABS: Bacteria Urine 4+ (None Seen); Hyaline Casts Urine 0-2 /LPF (0-2); RBC Urine 0-2 /HPF (0-2); Squamous Epithelial Cell Urine 0-2 /HPF (0-2); UACC Culture Trigger YES; WBC Urine >50 /HPF (0-5)
--- NOTE | 2022-12-12 03:40 | PC.NURSE ---
late entry- ed provider at bedside pt reports chest pain per dr reyez order troponin and ekg obtained. this rn and rn hedis placed straight catheter 800ml urine output upon insertion of cath. pt tolerated well. urine sample sent down to lab
--- NOTE | 2022-12-12 05:24 | PM.IMHP ---
History of Present Illness Date of Service: 12/12/22 Chief Complaint: flank pain This 77-year-old female medical history of GERD, HLD, HTN, CARMEN on CPAP recurrent UTI, comes into the hospital with complaints of urinary incontinence as well as left flank pain. Patient was recently discharged from hospital on completed a course of antibiotics for UTI. Patient reports that she was compliant and completed all her medications. She reports that she also had a fall 3 days ago that was mechanical on her right side. Patient right-sided pain that is radiating to the groin area is very severe that prompted her to come to the hospital, she is describing it as 10/10, constant, not relieved with her pain medications. Patient otherwise denies any shortness of breath, describes pain in the left-sided chest that is sharp stabbing in characteristic, similar to a heartburn, relieved with Gaviscon, denies any diarrhea constipation, no lower extremity edema. No numbness tingling or weakness. On arrival to the ED patient hemodynamically stable Labs are significant for WBC count of 5.2, stable hemoglobin, UA positive for large leukocyte Estrace, nitrites, WBC as well as bacteria Patient started on IV antibiotics and will be admitted for further management Review of Systems Review of Systems: Yes all other systems are reviewed and are negative [facility] Medical History Acute hip pain Anxiety E coli bacteremia GERD (gastroesophageal reflux disease) Hyperlipidemia Hypertension Hypothyroidism Left arm weakness Lymphoma CARMEN on CPAP Peripheral neuropathy Recurrent UTI Resting tremor Restless leg syndrome Urinary incontinence Surgical History S/P radiation therapy Social History Household Members: None Housing: Apartment Housing Other:: senior apartment. Do you presently have visiting nurse or other home services: Yes ([facility], [facility] thru [facility], [id number]) Patient Tobacco Use Status: Never used Tobacco Smoked in Last 30 Days: No Use of substances other than those prescribed or required for medical reasons: No Advance Directives: No Advance Directives Information Provided: Yes service: No Current occupational status: retired Meds Allergies Allergy/AdvReac Type Severity Reaction Status Date / Time atropine [From ] Allergy Unknown Verified 11/22/22 21:16 clams Allergy Unknown Verified 11/22/22 21:16 crab Allergy Unknown Verified 11/22/22 21:16 enalaprilat [From Vasotec] Allergy Blister Verified 11/22/22 21:16 hyoscyamine [From ] Allergy Unknown Verified 11/22/22 21:16 phenobarbital Allergy Unknown Verified 11/22/22 21:16 scopolamine [From ] Allergy Unknown Verified 11/22/22 21:16 shellfish derived Allergy Unknown Verified 11/22/22 21:16 Sulfa (Sulfonamide Allergy Unknown Verified 11/22/22 21:16 Antibiotics) Active Medications: Current Medications Ceftriaxone Sodium 1 gm/ (Sodium Chloride) 50 mls @ 100 mls/hr IV ONCE ONE Stop: 12/12/22 05:27 Home Medications Medication Instructions Recorded Confirmed Last Taken Type Lactobacillus acidophilus 2 tab PO BID 10/21/22 11/23/22 Unknown History acetaminophen 500 mg tablet 1,000 mg PO TID PRN Pain, Mild 10/21/22 11/23/22 Unknown History amlodipine 10 mg tablet 10 mg PO DAILY 10/21/22 11/23/22 10/21/22 History ascorbic acid (vitamin C) 1,000 mg 1,000 mg PO BID 10/21/22 11/23/22 10/21/22 History tablet atorvastatin 20 mg tablet 20 mg PO DAILY 10/21/22 11/23/22 Unknown History buprenorphine HCl 2 mg sublingual 4 mg sublingual TID 10/21/22 11/23/22 Unknown History tablet buspirone 5 mg tablet 5 mg PO DAILY 10/21/22 11/23/22 Unknown History cetirizine 10 mg tablet 10 mg PO DAILY 10/21/22 11/23/22 Unknown History cholecalciferol (vitamin D3) 10 10 mcg PO DAILY 10/21/22 11/23/22 Unknown History mcg (400 unit) tablet escitalopram oxalate 20 mg tablet 20 mg PO DAILY 10/21/22 11/23/22 Unknown History fluticasone propionate 50 1 spray intranasal BID 10/21/22 11/23/22 Unknown History mcg/actuation nasal spray,suspension furosemide 40 mg tablet 40 mg PO DAILY 10/21/22 11/23/22 10/21/22 History lamotrigine 200 mg tablet 200 mg PO BID 10/21/22 11/23/22 Unknown History latanoprost 0.005 % eye drops 1 drp ophthalmic (eye) BEDTIME 10/21/22 11/23/22 Unknown History levothyroxine 75 mcg tablet 75 mcg PO DAILY 10/21/22 11/23/22 Unknown History lidocaine 5 % topical patch 3 patch topical DAILY 10/21/22 11/23/22 Unknown History lorazepam 0.5 mg tablet 0.5 mg PO DAILY PRN Anxiety 10/21/22 11/23/22 Unknown History losartan 100 mg tablet 100 mg PO DAILY 10/21/22 11/23/22 10/21/22 History meloxicam 15 mg tablet 15 mg PO DAILY 10/21/22 11/23/22 Unknown History methenamine hippurate 1 gram tablet 1 g PO BID 10/21/22 11/23/22 10/21/22 History multivitamin 1 tab PO DAILY 10/21/22 11/23/22 Unknown History omeprazole 20 mg capsule,delayed 20 mg PO BID@0630,1630 10/21/22 11/23/22 Unknown History release polyethylene glycol 3350 17 gram 17 g PO BID 10/21/22 11/23/22 Unknown History oral powder packet (Miralax) psyllium 1 packet PO BID 10/21/22 11/23/22 Unknown History atenolol 100 mg tablet 100 mg PO BID 11/23/22 11/23/22 Unknown History buspirone 5 mg tablet 15 mg PO BEDTIME 11/23/22 11/23/22 Unknown History Physical Exam Vital Signs and Narrative: Vital Signs: Last Vital Signs Temp 98.3 F 12/12/22 04:49 Pulse 65 12/12/22 04:49 Resp 14 12/12/22 04:49 BP 136/54 L 12/12/22 04:49 Pulse Ox 94 12/12/22 04:49 O2 Del Method Room Air 12/12/22 04:49 BMI result Body Mass Index 27.3 Const: General: cooperative and no acute distress Orientation/consciousness: patient oriented x3 Eyes: General: appearance normal, both eyes and all related structures Resp: Effort & Inspection: normal respiratory effort Auscultation: clear to auscultation bilaterally Cardio: Rate: regular rate Rhythm: regular rhythm GI: Palpation (GI): Soft to palpation Auscultation: normal bowel sounds : Other: Right CVA tenderness Skin: General skin exam: no rashes or lesions noted Neuro: General: patient oriented x3 Cognition (Neuro): normal cognition Extrem: General: Yes normal to inspection and Yes no pedal edema Results Labs 12/12/22 01:47 12/12/22 01:47 Labs: Laboratory Results - last 24 hr 12/12/22 12/12/22 12/12/22 01:47 01:47 01:47 MCV 91.2 MCH 30.3 MCHC 33.2 RDW 13.1 Plt Count 147 L D MPV 9.0 L Immature Gran % (Auto) 0.4 Neut % (Auto) 61.8 Lymph % (Auto) 21.9 Starr % (Auto) 12.4 H Eos % (Auto) 2.7 Baso % (Auto) 0.8 Lymph # (Auto) 1.2 Starr # (Auto) 0.7 Eos # (Auto) 0.1 Baso # (Auto) 0.0 Abs Immat Gran (auto) 0.02 Absolute Neuts (auto) 3.2 Absolute Nucleated RBC 0.000 Nucleated RBC % (auto) 0.0 Anion Gap 14 Estim Creat Clear Calc 52.4 Estimated GFR 60 Random Glucose 85 Calcium 9.7 Total Bilirubin 0.3 Direct Bilirubin 0.1 AST 30 ALT 24 Alkaline Phosphatase 53 Troponin I High Sens 11.0 D Total Protein 7.3 Albumin 4.0 Lipase 43 Urine Color Urine Appearance Urine pH Ur Specific [place] Urine Protein Urine Glucose (UA) Urine Ketones Urine Blood Urine Nitrite Ur Leukocyte Esterase Urine RBC Urine WBC Ur Squamous Epith Cells Urine Bacteria Hyaline Casts 12/12/22 03:19 MCV MCH MCHC RDW Plt Count MPV Immature Gran % (Auto) Neut % (Auto) Lymph % (Auto) Starr % (Auto) Eos % (Auto) Baso % (Auto) Lymph # (Auto) Starr # (Auto) Eos # (Auto) Baso # (Auto) Abs Immat Gran (auto) Absolute Neuts (auto) Absolute Nucleated RBC Nucleated RBC % (auto) Anion Gap Estim Creat Clear Calc Estimated GFR Random Glucose Calcium Total Bilirubin Direct Bilirubin AST ALT Alkaline Phosphatase Troponin I High Sens Total Protein Albumin Lipase Urine Color Yellow Urine Appearance Cloudy Urine pH 7.0 Ur Specific [place] <= 1.005 Urine Protein Negative Urine Glucose (UA) Negative Urine Ketones Negative Urine Blood Trace H Urine Nitrite Positive H Ur Leukocyte Esterase Large (3+) H Urine RBC 0-2 Urine WBC >50 H Ur Squamous Epith Cells 0-2 Urine Bacteria 4+ Hyaline Casts 0-2 Assessment and Plan (1) Acute UTI: Status: Acute (2) Acute hip pain: Status: Inactive (3) Fall: Status: Inactive (4) Flank pain: Status: Acute Plan 37-year-old female with past medical history as mentioned above presents the hospital after having significant left-sided flank pain, urinary symptoms # acute UTI - possibly complicated by pyelonephritis as patient has CVA tenderness - no leukocytosis, afebrile - has history of recurrent UTI - will treat with IV antibiotics - pending CT of the abdomen pelvis # flank pain - possibly secondary to recent fall versus acute pyelonephritis - will treat with IV antibiotics - lidocaine patch - follow abdominal pelvic CT - follow cultures # fall - mechanical - PT OT prior to discharge # hypothyroidism - continue levothyroxine # hypertension - stable - continue home antihypertensives # GERD - continue antiacids # anxiety - continue anxiolytics DVT prophylaxis heparin subQ Given patient's need for IV antibiotics patient will require minimum 2 nights inpatient hospital stay for further management and monitoring Time Spent With Patient Time: Total time managing care of this patient today ____ minutes. Quality Stroke Does the patient have a stroke diagnosis?: No VTE Prior VTE?: No VTE Risk Level:: Medical - moderate - high VTE Device Contraindication: Treatment Not Indicated VTE Drug Contraindication: N/A - Med Ordered
[2022-12-12] MEDS: cefTRIAXone sodium 1 GM in 0.9 % Sodium Chloride 50 ML IV (05:25)
[2022-12-12 05:35] LABS: Lactic Acid 0.8 mmol/L (0.5-2.0)
--- NOTE | 2022-12-12 05:36 | PC.NURSE ---
per dr reyez draw blood cultures and Lactic acid prior to IV antibiotics. pt medicated according to sabi. hospitalist at bedside at this time
[2022-12-12 06:10] LABS: MANUAL DIFF FLAG NO
[2022-12-12 06:11] LABS: Basophils Percent Auto 0.7 % (0-2); Eosinophils Absolute Auto 0.1 X10*3/uL (0.0-0.4); Eosinophils Percent Auto 2.7 % (0-4); Hematocrit 31.4 % (37.0-47.0); Hemoglobin 10.4 g/dl (12.0-16.0); Imm Gran Abs Auto 0.01 X10*3/uL (0.00-0.03); Imm Gran Pct Auto 0.2 % (0.0-0.4); Lymphocytes Absolute Auto 1.1 X10*3/uL (1.2-4.9); Lymphocytes Percent Auto 24.8 % (20-40); Mean Corpuscular HGB Conc 33.1 g/dl (31.0-35.0); Mean Corpuscular Hemoglobin 30.3 pg (27.0-33.0); Mean Corpuscular Volume 91.5 fL (80.0-98.0); Mean Platelet Volume 8.7 fL (9.4-12.3); Monocytes Absolute Auto 0.5 X10*3/uL (0.1-1.2); Monocytes Percent Auto 11.1 % (2-11); Neutrophils Absolute Auto 2.7 x10*3/uL (2.0-8.3); Neutrophils Percent Auto 60.5 % (45-73); Platelet Count 133 X10*3/uL (160-400); Red Blood Count 3.43 X10*6/uL (4.20-5.50); Red Cell Distribution Width 13.2 % (11.0-16.0); White Blood Count 4.4 X10*3/uL (4.8-10.8)
[2022-12-12] MEDS: Enoxaparin Sodium 40 MG/0.4 ML SYRINGE SUBCUT (06:22)
[2022-12-12] MEDS: oxyCODONE HCl Immed Release 5 MG TABLET PO (06:22)
[2022-12-12 06:30] LABS: Anion Gap 12 (12-20); Blood Urea Nitrogen 24 mg/dL (9-16); Calcium 9.3 mg/dL (8.4-10.2); Carbon Dioxide 31 mmol/L (22-29); Chloride 97 mmol/L (96-108); Creatinine Clr Calc Pharmacy 60.4; Estimated Glomerular Filt Rate > 60; Glucose Random 93 mg/dL (60-115); Potassium 4.1 mmol/L (3.3-5.1); Sodium 136 mmol/L (135-145)
--- NOTE | 2022-12-12 07:30 | PC.NURSE ---
resumed care of patient, awaiting bed placement at this time. All needs met.
[2022-12-12] MEDS: 0.9 % Sodium Chloride Flush 3 ML SYRINGE IVFLUSH ×3 (07:57→20:48)
--- NOTE | 2022-12-12 08:03 | PHA.MEDREC ---
Addendum entered by Cherrie Bird [facility] 12/12/22 08:35: Patient came with list as well. Updated to reflect her list. Original Note: Pharmacy Consult ? Medication Reconciliation Pharmacy has completed the medication reconciliation. Patient was recently discharged. Pt discharged on cefuroxime axetil 500 mg BID however patient should be done with course.
--- NOTE | 2022-12-12 08:16 | MHC.EDTECH ---
Emptied patients Purewick canister 1300ml and warmed her breakfast per patient request. Amada Andrade
--- NOTE | 2022-12-12 10:30 | PM.EVENT ---
Event Note Date of Service: 12/12/22 Event Note: seen and examined this morning awake, alert, NAD CV: rrr PULM: lungs CTA, no respiratory distress GI soft, NT, ND : tenderness to palpation right side, lower lats. no midline tenderness. no CVAT admitted overnight for UTI no sepsis reporting right flank pain, seems more MS from recent fall then flank pain CT abdomen/pelvis with no acute changes ?cystitis continue IV Ceftriaxone, await urine/blood culture results consider ID consult given recurrent UTIs for chronic pain - continue home medications rest of plan see H&P DVT ppx - lovenox attending - dr. talamantes Time Spent With Patient Time: Total time managing care of this patient today ____ minutes.
[2022-12-12] MEDS: polyethylene glycoL 3350 17 GM POWD.PACK PO ×2 (11:53→20:48)
[2022-12-12] MEDS: amLODIPine Besylate 10 MG TABLET PO (11:53)
[2022-12-12] MEDS: Levothyroxine Sodium 75 MCG TABLET PO (11:53)
[2022-12-12] MEDS: Buprenorphine HCL 2 MG TAB.SUBL 4 MG SUBLINGUAL ×2 (14:24→20:48)
[2022-12-12] MEDS: Omeprazole 20 MG CAPSULE.DR PO (16:19)
[2022-12-12] MEDS: busPIRone HCl 5 MG TABLET 15 MG PO (20:47)
[2022-12-12] MEDS: lamoTRIgine 100 MG TABLET 200 MG PO (20:47)
--- NOTE | 2022-12-12 22:58 | W.PM.IDCN ---
History of Present Illness Data of Consult Service Date: 12/12/22 Requesting physician: Mary Rodriguez Primary Care Provider: Debi Cisse MD HPI Reason for consult: lumbar and right sciatic pain She presents with reported urinary frequency and 8/10 right flank and back pain since she finished four days po Cefuroxime about 12/07 for total 14 days treatment for E coli bacteremia from 11/22. She is upset that Dr Cisse didnt do test of cure on her urine after finished antibiotics and I explained this is not done as some people are colonized for time She has no fever or leukocytosis. Back pain is the most prominent symptom Review of Systems Review of Systems: Yes all other systems are reviewed and are negative [facility] Past Medical History Medical History (Updated 12/12/22 @ 23:22 by Yolanda Jaime MD) Acute hip pain Anxiety E coli bacteremia GERD (gastroesophageal reflux disease) Hyperlipidemia Hypertension Hypothyroidism Left arm weakness Lumbar pain Lymphoma CARMEN on CPAP Peripheral neuropathy Recurrent UTI Resting tremor Restless leg syndrome Urinary incontinence Family History Family history: reviewed and not pertinent Surgical History Surgical History S/P radiation therapy Social History Social History Household Members: None Housing: Other Housing Other:: senior housing Do you presently have visiting nurse or other home services: Yes Patient Tobacco Use Status: Never used Tobacco Smoked in Last 30 Days: No Use of substances other than those prescribed or required for medical reasons: No Have you been hit, kicked, punched, or otherwise hurt by someone within the past year? If so, by whom?: No Do you feel safe in your current relationship?: No Current Relationship Is there a partner from a previous relationship who is making you feel unsafe now?: No Are you made to feel afraid or neglected: No Advance Directives: No Advance Directives Information Provided: Yes Do you have thoughts of harming others: None Do you have a plan to hurt others: No Plan Recently lost weight without trying: No Nutrition Risks: No Nutritional Risk Patient : No : No Poor oral hygiene: No service: No Current occupational status: retired Meds Allergies Allergy/AdvReac Type Severity Reaction Status Date / Time atropine [From ] Allergy Unknown Verified 11/22/22 21:16 clams Allergy Unknown Verified 11/22/22 21:16 crab Allergy Unknown Verified 11/22/22 21:16 enalaprilat [From Vasotec] Allergy Blister Verified 11/22/22 21:16 hyoscyamine [From ] Allergy Unknown Verified 11/22/22 21:16 phenobarbital Allergy Unknown Verified 11/22/22 21:16 scopolamine [From ] Allergy Unknown Verified 11/22/22 21:16 shellfish derived Allergy Unknown Verified 11/22/22 21:16 Sulfa (Sulfonamide Allergy Unknown Verified 11/22/22 21:16 Antibiotics) Active Medications: Current Medications Acetaminophen (Acetaminophen 325 Mg Tablet) 650 mg PO Q6H PRN PRN Reason: Pain, Mild (Pain Scale 1-3) Amlodipine Besylate (Amlodipine Besylate 10 Mg Tablet) 10 mg PO DAILY [facility]; Protocol Last Admin: 12/12/22 11:53 Dose: 10 mg Atorvastatin Calcium (Atorvastatin Calcium 20 Mg Tablet) 20 mg PO DAILY [facility] Buprenorphine HCl (Buprenorphine Hcl 2 Mg Tab.Subl) 4 mg SUBLINGUAL TID [facility] Last Admin: 12/12/22 20:48 Dose: 4 mg Buspirone HCl (Buspirone Hcl 5 Mg Tablet) 5 mg PO DAILY [facility] Buspirone HCl (Buspirone Hcl 5 Mg Tablet) 15 mg PO BEDTIME [facility] Last Admin: 12/12/22 20:47 Dose: 15 mg Docusate Sodium (Docusate Sodium 100 Mg Capsule) 100 mg PO DAILY PRN PRN Reason: Constipation Enoxaparin Sodium (Enoxaparin Sodium 40 Mg/0.4 Ml Syringe) 40 mg SUBCUT Q24H [facility] Last Admin: 12/12/22 06:22 Dose: 40 mg Escitalopram Oxalate (Escitalopram Oxalate 20 Mg Tablet) 20 mg PO DAILY [facility] Furosemide (Furosemide 40 Mg Tablet) 40 mg PO DAILY [facility]; Protocol Ceftriaxone Sodium 1 gm/ (Sodium Chloride) 50 mls @ 100 mls/hr IV Q24H [facility] Lamotrigine (Lamotrigine 100 Mg Tablet) 200 mg PO BID [facility] Last Admin: 12/12/22 20:47 Dose: 200 mg Latanoprost (Latanoprost 0.005 % Ophth Elena 2.5 Ml Drops) 1 drop EYE-BOTH BEDTIME [facility] Last Admin: 12/12/22 20:48 Dose: 1 drop Levothyroxine Sodium (Levothyroxine Sodium 75 Mcg Tablet) 75 mcg PO DAILY@0600 [facility] Last Admin: 12/12/22 11:53 Dose: 75 mcg Lidocaine (Lidocaine 4 % Patch Adh..Patch) 3 patch TRANSDERMA DAILY [facility] Loratadine (Loratadine 10 Mg Tablet) 10 mg PO DAILY [facility] Lorazepam (Lorazepam 0.5 Mg Tablet) 0.5 mg PO DAILY PRN PRN Reason: Anxiety Losartan Potassium (Losartan Potassium 50 Mg Tablet) 100 mg PO DAILY [facility]; Protocol Omeprazole (Omeprazole 20 Mg Capsule.Dr) 20 mg PO BID@0630,1630 [facility] Last Admin: 12/12/22 16:19 Dose: 20 mg Ondansetron HCl (Ondansetron Hcl 4 Mg/2 Ml Vial) 4 mg IVPUSH Q8H PRN PRN Reason: Nausea and Vomiting Oxycodone HCl (Oxycodone Hcl Immed Release 5 Mg Tablet) 5 mg PO Q4H PRN PRN Reason: Pain, Severe (Pain Scale 7-10) Last Admin: 12/12/22 06:22 Dose: 5 mg Pharmacy Consult (Consult Rx Perform Med Rec) 1 each MISCELLANE ONCE PRN PRN Reason: Consult order Polyethylene Glycol (Polyethylene Glycol 3350 17 Gm Powd.Pack) 17 gm PO BID [facility] Last Admin: 12/12/22 20:48 Dose: 17 gm Sodium Chloride (0.9 % Sodium Chloride Flush 3 Ml Syringe) 3 ml IVFLUSH QSHIFT [facility] Last Admin: 12/12/22 20:48 Dose: 3 ml Home Medications Medication Instructions Recorded Confirmed Last Taken Type Lactobacillus acidophilus 2 tab PO BID 10/21/22 12/12/22 Unknown History acetaminophen 500 mg tablet 1,000 mg PO TID PRN Pain, Mild 10/21/22 12/12/22 Unknown History amlodipine 10 mg tablet 10 mg PO DAILY 10/21/22 12/12/22 10/21/22 History ascorbic acid (vitamin C) 1,000 mg 1,000 mg PO BID 10/21/22 12/12/22 10/21/22 History tablet atorvastatin 20 mg tablet 20 mg PO DAILY 10/21/22 12/12/22 Unknown History buprenorphine HCl 2 mg sublingual 4 mg sublingual TID 10/21/22 12/12/22 Unknown History tablet buspirone 5 mg tablet 5 mg PO DAILY 10/21/22 12/12/22 Unknown History cetirizine 10 mg tablet 10 mg PO DAILY 10/21/22 12/12/22 Unknown History cholecalciferol (vitamin D3) 10 10 mcg PO DAILY 10/21/22 12/12/22 Unknown History mcg (400 unit) tablet escitalopram oxalate 20 mg tablet 20 mg PO DAILY 10/21/22 12/12/22 Unknown History furosemide 40 mg tablet 40 mg PO DAILY 10/21/22 12/12/22 10/21/22 History lamotrigine 200 mg tablet 200 mg PO BID 10/21/22 12/12/22 Unknown History latanoprost 0.005 % eye drops 1 drp ophthalmic (eye) BEDTIME 10/21/22 12/12/22 Unknown History levothyroxine 75 mcg tablet 75 mcg PO DAILY 10/21/22 12/12/22 Unknown History lidocaine 5 % topical patch 3 patch topical DAILY 10/21/22 12/12/22 Unknown History lorazepam 0.5 mg tablet 0.5 mg PO DAILY PRN Anxiety 10/21/22 12/12/22 Unknown History losartan 100 mg tablet 100 mg PO DAILY 10/21/22 12/12/22 10/21/22 History meloxicam 15 mg tablet 15 mg PO DAILY 10/21/22 12/12/22 Unknown History methenamine hippurate 1 gram tablet 1 g PO BID 10/21/22 12/12/22 10/21/22 History multivitamin 1 tab PO DAILY 10/21/22 12/12/22 Unknown History omeprazole 20 mg capsule,delayed 20 mg PO BID@0630,1630 10/21/22 12/12/22 Unknown History release polyethylene glycol 3350 17 gram 17 g PO BID 10/21/22 12/12/22 Unknown History oral powder packet (Miralax) psyllium 1 packet PO BID 10/21/22 12/12/22 Unknown History buspirone 5 mg tablet 15 mg PO BEDTIME 11/23/22 12/12/22 Unknown History Physical Exam Vital Signs: Vital Signs: Last Vital Signs Temp 97.1 F 12/12/22 19:11 Pulse 56 12/12/22 19:11 Resp 20 12/12/22 19:11 BP 130/63 12/12/22 19:11 Pulse Ox 95 12/12/22 19:11 O2 Del Method Room Air 12/12/22 19:11 BMI result Body Mass Index 27.3 Const: General: cooperative HEENT: Head: Yes normal to inspection Face and sinus: Yes normal facial exam Mouth: Normal oral and palatal mucosa present Teeth and gingiva: dentition normal Eyes: General: appearance normal, both eyes and all related structures Pupils: Equal, round and reactive pupils present Resp: Effort & Inspection: normal respiratory effort Cardio: Rate: regular rate Rhythm: regular rhythm GI: Palpation (GI): Soft to palpation and nontender : General: Yes CVA tenderness Back/Spine/Pelvis: Other: right sided back pain Back: CVA tenderness Thoracic/Lumbar Spine: other (pain LS spine extending to right flank) Skin: General skin exam: no rashes or lesions noted Neuro: General: moves all extremities Cranial nerves: Yes Equal, round and reactive pupils present Extrem: General: Yes normal to inspection Psych: Appearance: grossly normal Results Labs 12/12/22 06:06 12/12/22 06:06 Labs: Short CBC 12/12/22 12/12/22 Range/Units 01:47 06:06 WBC 5.2 4.4 L (4.8-10.8) X10*3/uL Hgb 11.4 L 10.4 L (12.0-16.0) g/dl Hct 34.3 L 31.4 L (37.0-47.0) % Plt Count 147 L D 133 L (160-400) X10*3/uL BMP 12/12/22 12/12/22 01:47 06:06 Sodium 133 L 136 Potassium 4.5 D 4.1 Chloride 94 L 97 Carbon Dioxide 30 H 31 H BUN 28 H 24 H Creatinine 0.91 0.79 Calcium 9.7 9.3 Liver Function 12/12/22 Range/Units 01:47 Total Bilirubin 0.3 (0.0-1.0) mg/dL Direct Bilirubin 0.1 (0.0-0.5) mg/dL AST 30 (5-31) U/L ALT 24 (0-31) U/L Alkaline Phosphatase 53 (39-117) U/L Albumin 4.0 (3.5-5.0) g/dL Urine 12/12/22 Range/Units 03:19 Urine Color Yellow Urine Appearance Cloudy Urine pH 7.0 (5.0-9.0) Ur Specific [place] <= 1.005 (1.005-1.025) Urine Protein Negative (Neg-Trace) mg/dL Urine Glucose (UA) Negative (Negative) mg/dL Assessment and Plan (1) Flank pain: Status: Acute (2) Lumbar pain: Status: Acute She has back pain as primary symptom. Hospital stay in November was for sepsis but now no fever or tachycardia. She may just have sciatica and urine may be colonized. Plan Continue antibiotics Await urine culture and if positive again involve Urology ?slow bladder emptying and treat 21d,including oral Consider MRI LS spine evaluate nerve impingement or other causes back pain Time Spent With Patient Time: Total time managing care of this patient today ____ minutes.
[2022-12-13] MEDS: oxyCODONE HCl Immed Release 5 MG TABLET PO (00:52)
[2022-12-13 04:00] VITALS: BP 158/70; PULSE 66; RESP 18; TEMP 36.9; O2SAT 95
[2022-12-13] MEDS: cefTRIAXone sodium 1 GM in 0.9 % Sodium Chloride 50 ML IV (06:43)
[2022-12-13] MEDS: Omeprazole 20 MG CAPSULE.DR PO ×2 (06:44→15:15)
[2022-12-13] MEDS: Levothyroxine Sodium 75 MCG TABLET PO (06:44)
[2022-12-13] MEDS: Enoxaparin Sodium 40 MG/0.4 ML SYRINGE SUBCUT (06:44)
[2022-12-13 08:00] VITALS: BP 155/67; PULSE 70; RESP 18; TEMP 36.2; O2SAT 96
[2022-12-13] MEDS: amLODIPine Besylate 10 MG TABLET PO (08:59)
[2022-12-13] MEDS: Furosemide 40 MG TABLET PO (08:59)
[2022-12-13] MEDS: lamoTRIgine 100 MG TABLET 200 MG PO ×2 (08:59→20:47)
[2022-12-13] MEDS: Escitalopram Oxalate 20 MG TABLET PO (08:59)
[2022-12-13] MEDS: Losartan Potassium 50 MG TABLET 100 MG PO (08:59)
[2022-12-13] MEDS: Loratadine 10 MG TABLET PO (08:59)
[2022-12-13] MEDS: Buprenorphine HCL 2 MG TAB.SUBL 4 MG SUBLINGUAL ×3 (08:59→20:47)
[2022-12-13] MEDS: Atorvastatin Calcium 20 MG TABLET PO (08:59)
[2022-12-13] MEDS: busPIRone HCl 5 MG TABLET PO (08:59)
[2022-12-13] MEDS: Lidocaine 4 % Patch ADH..PATCH 3 PATCH TRANSDERMA (09:00)
[2022-12-13] MEDS: polyethylene glycoL 3350 17 GM POWD.PACK PO ×2 (09:00→20:47)
--- NOTE | 2022-12-13 11:24 | MHC.CM.PN ---
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 SHE SAYS HER DAUGHTERS ARE HER HCP, COPY REQUESTED PCP: [facility] DELIVERED CURRENT DC PLAN: HOME, RESUME SERVICES DAUGHTER TO TRANSPORT
--- NOTE | 2022-12-13 11:31 | HO.PM.IMPN ---
Subjective Subjective Date of Service: 12/13/22 Interval History: seen and examined this morning follow up for right back pain, UTI no fever, chills or flank pain pain is primarily right buttock down right thigh - chronic in nature Review of Systems Review of Systems: Yes all other systems are reviewed and are negative Constitutional Constitutional: Denies chills and Denies fever(s) Cardiovascular Cardiovascular: Denies chest pain, Denies palpitations and Denies dyspnea Respiratory Respiratory: Denies cough and Denies dyspnea Gastrointestinal Gastrointestinal: Denies abdominal pain, Denies nausea and Denies vomiting Endocrine Endocrine: Denies palpitations Physical Exam Vital Signs: Vital Signs: Last Vital Signs Temp 97.1 F 12/13/22 08:00 Pulse 70 12/13/22 08:00 Resp 18 12/13/22 08:00 BP 155/67 H 12/13/22 08:00 Pulse Ox 96 12/13/22 08:00 O2 Del Method Room Air 12/13/22 08:00 BMI result Body Mass Index 27.3 Const: General: cooperative, comfortable, alert and awake Nutritional Appearance: average body habitus Orientation/consciousness: patient oriented x3 Resp: Effort & Inspection: normal respiratory effort, able to speak in complete sentences, no respiratory distress and no use of accessory muscles Auscultation: clear to auscultation bilaterally Cardio: Rate: regular rate Heart sounds: S1 normal heart sound present and S2 normal heart sound present GI: Inspection: No distended Palpation (GI): Soft to palpation and nontender : General: Yes no CVA tenderness Back/Spine/Pelvis: Back: no CVA tenderness Neuro: General: patient oriented x3 and CN's II-XI intact bilaterally Extrem: Other: limited ROM LLE - chronic; left foot drop - chronic MS tenderness left buttock Objective Data Active Medications Acetaminophen (Acetaminophen 325 Mg Tablet) 650 mg PO Q6H PRN PRN Reason: Pain, Mild (Pain Scale 1-3) Amlodipine Besylate (Amlodipine Besylate 10 Mg Tablet) 10 mg PO DAILY [facility]; Protocol Last Admin: 12/13/22 08:59 Dose: 10 mg Documented By: COTGEMMA Atorvastatin Calcium (Atorvastatin Calcium 20 Mg Tablet) 20 mg PO DAILY [facility] Last Admin: 12/13/22 08:59 Dose: 20 mg Documented By: KENDRA Buprenorphine HCl (Buprenorphine Hcl 2 Mg Tab.Subl) 4 mg SUBLINGUAL TID [facility] Last Admin: 12/13/22 08:59 Dose: 4 mg Documented By: COTEMA Buspirone HCl (Buspirone Hcl 5 Mg Tablet) 5 mg PO DAILY [facility] Last Admin: 12/13/22 08:59 Dose: 5 mg Documented By: COTEMA Buspirone HCl (Buspirone Hcl 5 Mg Tablet) 15 mg PO BEDTIME [facility] Last Admin: 12/12/22 20:47 Dose: 15 mg Documented By: KHADRA Docusate Sodium (Docusate Sodium 100 Mg Capsule) 100 mg PO DAILY PRN PRN Reason: Constipation Enoxaparin Sodium (Enoxaparin Sodium 40 Mg/0.4 Ml Syringe) 40 mg SUBCUT Q24H [facility] Last Admin: 12/13/22 06:44 Dose: 40 mg Documented By: KHADRA Escitalopram Oxalate (Escitalopram Oxalate 20 Mg Tablet) 20 mg PO DAILY [facility] Last Admin: 12/13/22 08:59 Dose: 20 mg Documented By: COTEMA Furosemide (Furosemide 40 Mg Tablet) 40 mg PO DAILY [facility]; Protocol Last Admin: 12/13/22 08:59 Dose: 40 mg Documented By: KENDRA Ceftriaxone Sodium 1 gm/ (Sodium Chloride) 50 mls @ 100 mls/hr IV Q24H [facility] Last Infusion: 12/13/22 07:22 Dose: 0 mls/hr Documented By: KENDRA Lamotrigine (Lamotrigine 100 Mg Tablet) 200 mg PO BID [facility] Last Admin: 12/13/22 08:59 Dose: 200 mg Documented By: SETHEMA Latanoprost (Latanoprost 0.005 % Ophth Elena 2.5 Ml Drops) 1 drop EYE-BOTH BEDTIME [facility] Last Admin: 12/12/22 20:48 Dose: 1 drop Documented By: KHADRA Levothyroxine Sodium (Levothyroxine Sodium 75 Mcg Tablet) 75 mcg PO DAILY@0600 [facility] Last Admin: 12/13/22 06:44 Dose: 75 mcg Documented By: KHADRA Lidocaine (Lidocaine 4 % Patch Adh..Patch) 3 patch TRANSDERMA DAILY [facility] Last Admin: 12/13/22 09:00 Dose: 3 patch Documented By: KENDRA Loratadine (Loratadine 10 Mg Tablet) 10 mg PO DAILY [facility] Last Admin: 12/13/22 08:59 Dose: 10 mg Documented By: COTGEMMA Lorazepam (Lorazepam 0.5 Mg Tablet) 0.5 mg PO DAILY PRN PRN Reason: Anxiety Losartan Potassium (Losartan Potassium 50 Mg Tablet) 100 mg PO DAILY [facility]; Protocol Last Admin: 12/13/22 08:59 Dose: 100 mg Documented By: KENDRA Pt Own Medication ( Lactobacillus Acidophilus Tablet, Chewable) 2 tab PO BID [facility] Last Admin: 12/13/22 09:37 Dose: 2 tab Documented By: KENDRA Omeprazole (Omeprazole 20 Mg Capsule.Dr) 20 mg PO BID@0630,1630 [facility] Last Admin: 12/13/22 06:44 Dose: 20 mg Documented By: KHADRA Ondansetron HCl (Ondansetron Hcl 4 Mg/2 Ml Vial) 4 mg IVPUSH Q8H PRN PRN Reason: Nausea and Vomiting Oxycodone HCl (Oxycodone Hcl Immed Release 5 Mg Tablet) 5 mg PO Q4H PRN PRN Reason: Pain, Severe (Pain Scale 7-10) Last Admin: 12/13/22 00:52 Dose: 5 mg Documented By: KHADRA Pharmacy Consult (Consult Rx Perform Med Rec) 1 each MISCELLANE ONCE PRN PRN Reason: Consult order Polyethylene Glycol (Polyethylene Glycol 3350 17 Gm Powd.Pack) 17 gm PO BID [facility] Last Admin: 12/13/22 09:00 Dose: 17 gm Documented By: COTEMA Sodium Chloride (0.9 % Sodium Chloride Flush 3 Ml Syringe) 3 ml IVFLUSH QSHIFT [facility] Last Admin: 12/13/22 07:33 Dose: Not Given Documented By: COTEMA Non-Admin Reason: Previously Administered Labs 12/12/22 06:06 12/12/22 06:06 Microbiology Microbiology Results: Microbiology 12/12/22 Unknown Urine Culture - Preliminary Urine Catheterized - Freeman Catheter Gram negative nicole 12/12/22 05:19 Blood Culture - Preliminary Blood - Venous No growth after 24 hours. 12/12/22 05:19 Blood Culture - Preliminary Blood - Venous No growth after 24 hours. Assessment and Plan (1) Acute UTI: Status: Acute Plan This is a 77-year-old female with past medical history as mentioned above presents the hospital with right back pain and urinary frequency UTI no evidence of sepsis recent treatment for the same Urology consult given recurrent UTI seen by ID - rec treatment for 21 days Urine culture growing GNR, follow final results blood cultures negative to date continue IV ceftriaxone, started 12/12 acute on chronic back pain does not seem related to UTI. no evidence of pyelonephritis CT abdomen with no acute changes pt has long history of chronic pain. treated for sciatic nerve pain [facility] had a fall prior to admission likely cause of acute flare of chronic pain seen by PT on last admit who rec STR but pt elected to return home continue baseline pain medication can consider MRI, but overall pain seems to be improving. outpatient [facility] with [facility] hypothyroidism continue levothyroxine hypertension stable, continue home antihypertensives GERD continue antiacids mood continue baseline meds HLD continue statin DVT prophylaxis lovenox attending - dr. dupont Patient requires ongoing inpatient stay for UTI Time Spent With Patient Time: Total time managing care of this patient today ____ minutes. Quality Stroke Does the patient have a stroke diagnosis?: No VTE Prior VTE?: No VTE Risk Level:: Medical - moderate - high VTE Device Contraindication: Treatment Not Indicated VTE Drug Contraindication: N/A - Med Ordered
--- NOTE | 2022-12-13 14:12 | PM.UROCN ---
History of Present Illness Consult details Consult date: 12/13/22 Narrative: Consult for Recurrent UTI's. CTAP - Kidneys no urolithiasis. Bladder findings c/w cystitis urine c/s - gram neg. rods 77-year-old female medical history of GERD, HLD, HTN, CARMEN on CPAP recurrent UTI, admitted on 12/12/22 with complaints of urinary incontinence as well as left flank pain.? Patient was recently discharged from hospital and completed a course of antibiotics for UTI.??Pt states she has followed up with Urology in the past. 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 Peripheral neuropathy Recurrent UTI Resting tremor Restless leg syndrome Urinary incontinence Family History Family history: reviewed and not pertinent Surgical History Surgical History S/P radiation therapy Social History Social History Household Members: None Housing: Other Housing Other:: senior housing Do you presently have visiting nurse or other home services: Yes Patient Tobacco Use Status: Never used Tobacco Smoked in Last 30 Days: No Use of substances other than those prescribed or required for medical reasons: No Currently Displaying Signs/Symptoms of Drug Intoxication Withdrawal: No Have you been hit, kicked, punched, or otherwise hurt by someone within the past year? If so, by whom?: No Do you feel safe in your current relationship?: No Current Relationship Is there a partner from a previous relationship who is making you feel unsafe now?: No Are you made to feel afraid or neglected: No Advance Directives: No Advance Directives Information Provided: Yes Do you have thoughts of harming others: None Do you have a plan to hurt others: No Plan Recently lost weight without trying: No Nutrition Risks: No Nutritional Risk Patient : No : No Poor oral hygiene: No service: No Current occupational status: retired Meds Allergies Allergy/AdvReac Type Severity Reaction Status Date / Time atropine [From ] Allergy Unknown Verified 11/22/22 21:16 clams Allergy Unknown Verified 11/22/22 21:16 crab Allergy Unknown Verified 11/22/22 21:16 enalaprilat [From Vasotec] Allergy Blister Verified 11/22/22 21:16 hyoscyamine [From ] Allergy Unknown Verified 11/22/22 21:16 phenobarbital Allergy Unknown Verified 11/22/22 21:16 scopolamine [From ] Allergy Unknown Verified 11/22/22 21:16 shellfish derived Allergy Unknown Verified 11/22/22 21:16 Sulfa (Sulfonamide Allergy Unknown Verified 11/22/22 21:16 Antibiotics) Active Medications: Current Medications Acetaminophen (Acetaminophen 325 Mg Tablet) 650 mg PO Q6H PRN PRN Reason: Pain, Mild (Pain Scale 1-3) Amlodipine Besylate (Amlodipine Besylate 10 Mg Tablet) 10 mg PO DAILY [facility]; Protocol Last Admin: 12/13/22 08:59 Dose: 10 mg Atorvastatin Calcium (Atorvastatin Calcium 20 Mg Tablet) 20 mg PO DAILY [facility] Last Admin: 12/13/22 08:59 Dose: 20 mg Buprenorphine HCl (Buprenorphine Hcl 2 Mg Tab.Subl) 4 mg SUBLINGUAL TID [facility] Last Admin: 12/13/22 08:59 Dose: 4 mg Buspirone HCl (Buspirone Hcl 5 Mg Tablet) 5 mg PO DAILY [facility] Last Admin: 12/13/22 08:59 Dose: 5 mg Buspirone HCl (Buspirone Hcl 5 Mg Tablet) 15 mg PO BEDTIME [facility] Last Admin: 12/12/22 20:47 Dose: 15 mg Docusate Sodium (Docusate Sodium 100 Mg Capsule) 100 mg PO DAILY PRN PRN Reason: Constipation Enoxaparin Sodium (Enoxaparin Sodium 40 Mg/0.4 Ml Syringe) 40 mg SUBCUT Q24H [facility] Last Admin: 12/13/22 06:44 Dose: 40 mg Escitalopram Oxalate (Escitalopram Oxalate 20 Mg Tablet) 20 mg PO DAILY [facility] Last Admin: 12/13/22 08:59 Dose: 20 mg Furosemide (Furosemide 40 Mg Tablet) 40 mg PO DAILY [facility]; Protocol Last Admin: 12/13/22 08:59 Dose: 40 mg Ceftriaxone Sodium 1 gm/ (Sodium Chloride) 50 mls @ 100 mls/hr IV Q24H [facility] Last Infusion: 12/13/22 07:22 Dose: Infused Lamotrigine (Lamotrigine 100 Mg Tablet) 200 mg PO BID [facility] Last Admin: 12/13/22 08:59 Dose: 200 mg Latanoprost (Latanoprost 0.005 % Ophth Elena 2.5 Ml Drops) 1 drop EYE-BOTH BEDTIME [facility] Last Admin: 12/12/22 20:48 Dose: 1 drop Levothyroxine Sodium (Levothyroxine Sodium 75 Mcg Tablet) 75 mcg PO DAILY@0600 [facility] Last Admin: 12/13/22 06:44 Dose: 75 mcg Lidocaine (Lidocaine 4 % Patch Adh..Patch) 3 patch TRANSDERMA DAILY [facility] Last Admin: 12/13/22 09:00 Dose: 3 patch Loratadine (Loratadine 10 Mg Tablet) 10 mg PO DAILY [facility] Last Admin: 12/13/22 08:59 Dose: 10 mg Lorazepam (Lorazepam 0.5 Mg Tablet) 0.5 mg PO DAILY PRN PRN Reason: Anxiety Losartan Potassium (Losartan Potassium 50 Mg Tablet) 100 mg PO DAILY [facility]; Protocol Last Admin: 12/13/22 08:59 Dose: 100 mg Pt Own Medication ( Lactobacillus Acidophilus Tablet, Chewable) 2 tab PO BID [facility] Last Admin: 12/13/22 09:37 Dose: 2 tab Omeprazole (Omeprazole 20 Mg Capsule.Dr) 20 mg PO BID@0630,1630 [facility] Last Admin: 12/13/22 06:44 Dose: 20 mg Ondansetron HCl (Ondansetron Hcl 4 Mg/2 Ml Vial) 4 mg IVPUSH Q8H PRN PRN Reason: Nausea and Vomiting Oxycodone HCl (Oxycodone Hcl Immed Release 5 Mg Tablet) 5 mg PO Q4H PRN PRN Reason: Pain, Severe (Pain Scale 7-10) Last Admin: 12/13/22 00:52 Dose: 5 mg Pharmacy Consult (Consult Rx Perform Med Rec) 1 each MISCELLANE ONCE PRN PRN Reason: Consult order Polyethylene Glycol (Polyethylene Glycol 3350 17 Gm Powd.Pack) 17 gm PO BID [facility] Last Admin: 12/13/22 09:00 Dose: 17 gm Sodium Chloride (0.9 % Sodium Chloride Flush 3 Ml Syringe) 3 ml IVFLUSH QSHIFT [facility] Last Admin: 12/13/22 07:33 Dose: Not Given Home Medications Medication Instructions Recorded Confirmed Last Taken Type Lactobacillus acidophilus 2 tab PO BID 10/21/22 12/12/22 Unknown History acetaminophen 500 mg tablet 1,000 mg PO TID PRN Pain, Mild 10/21/22 12/12/22 Unknown History amlodipine 10 mg tablet 10 mg PO DAILY 10/21/22 12/12/22 10/21/22 History ascorbic acid (vitamin C) 1,000 mg 1,000 mg PO BID 10/21/22 12/12/22 10/21/22 History tablet atorvastatin 20 mg tablet 20 mg PO DAILY 10/21/22 12/12/22 Unknown History buprenorphine HCl 2 mg sublingual 4 mg sublingual TID 10/21/22 12/12/22 Unknown History tablet buspirone 5 mg tablet 5 mg PO DAILY 10/21/22 12/12/22 Unknown History cetirizine 10 mg tablet 10 mg PO DAILY 10/21/22 12/12/22 Unknown History cholecalciferol (vitamin D3) 10 10 mcg PO DAILY 10/21/22 12/12/22 Unknown History mcg (400 unit) tablet escitalopram oxalate 20 mg tablet 20 mg PO DAILY 10/21/22 12/12/22 Unknown History furosemide 40 mg tablet 40 mg PO DAILY 10/21/22 12/12/22 10/21/22 History lamotrigine 200 mg tablet 200 mg PO BID 10/21/22 12/12/22 Unknown History latanoprost 0.005 % eye drops 1 drp ophthalmic (eye) BEDTIME 10/21/22 12/12/22 Unknown History levothyroxine 75 mcg tablet 75 mcg PO DAILY 10/21/22 12/12/22 Unknown History lidocaine 5 % topical patch 3 patch topical DAILY 10/21/22 12/12/22 Unknown History lorazepam 0.5 mg tablet 0.5 mg PO DAILY PRN Anxiety 10/21/22 12/12/22 Unknown History losartan 100 mg tablet 100 mg PO DAILY 10/21/22 12/12/22 10/21/22 History meloxicam 15 mg tablet 15 mg PO DAILY 10/21/22 12/12/22 Unknown History methenamine hippurate 1 gram tablet 1 g PO BID 10/21/22 12/12/22 10/21/22 History multivitamin 1 tab PO DAILY 10/21/22 12/12/22 Unknown History omeprazole 20 mg capsule,delayed 20 mg PO BID@0630,1630 10/21/22 12/12/22 Unknown History release polyethylene glycol 3350 17 gram 17 g PO BID 10/21/22 12/12/22 Unknown History oral powder packet (Miralax) psyllium 1 packet PO BID 10/21/22 12/12/22 Unknown History buspirone 5 mg tablet 15 mg PO BEDTIME 11/23/22 12/12/22 Unknown History Physical Exam Vital Signs: Vital Signs: Last Vital Signs Temp 97.1 F 12/13/22 08:00 Pulse 70 12/13/22 08:00 Resp 18 12/13/22 08:00 BP 155/67 H 12/13/22 08:00 Pulse Ox 96 12/13/22 08:00 O2 Del Method Room Air 12/13/22 08:00 BMI result Body Mass Index 27.3 Const: General: cooperative, healthy appearing and no acute distress Orientation/consciousness: patient oriented x3 HEENT: Head: Yes normal to inspection, Yes normocephalic and Yes atraumatic Eyes: Conjunctivae: conjunctivae normal Neck: Neck: Yes normal visual inspection and Yes trachea midline Chest: Chest palpation & inspection: normal inspection of the chest Resp: Effort & Inspection: normal respiratory effort Cardio: Rate: regular rate GI: Inspection: Yes normal to inspection Skin: General skin exam: no rashes or lesions noted Neuro: General: patient oriented x3 Psych: Appearance: grossly normal Results Labs 12/12/22 06:06 12/12/22 06:06 Labs: Urine 12/12/22 Range/Units 03:19 Urine Color Yellow Urine Appearance Cloudy Urine pH 7.0 (5.0-9.0) Ur Specific [place] <= 1.005 (1.005-1.025) Urine Protein Negative (Neg-Trace) mg/dL Urine Glucose (UA) Negative (Negative) mg/dL All other labs normal. Imaging CT scan - pelvis: report reviewed and image reviewed Additional studies: Date of Service: 12/12/22 EXAMINATION: CT ABDOMEN AND PELVIS WITHOUT CONTRAST? CLINICAL INFORMATION: Flank pain, UTI, fall onto right side? COMPARISON: None available. TECHNIQUE: Multidetector volumetric imaging was performed from the superior aspect of the liver through the pubic symphysis. Sagittal and coronal reformatted images were obtained on the technologist's workstation.? This CT examination was performed using dose optimization techniques as appropriate, variously including the following: *Automated exposure control *Adjustment of mA and/or kV according to patient size (this includes techniques or standardized protocols for targeted exams where dose is matched to indication/reason for exam; i.e. extremities or head) *Use of iterative reconstruction technique DLP: 694 mGy-cm FINDINGS: LUNG BASES: Bibasilar subsegmental atelectasis. Right pericardial cyst suspected.? LIVER, GALLBLADDER, AND BILIARY TREE: The liver is normal in size, shape, and attenuation. No focal hepatic lesion or biliary ductal dilatation is identified on this noncontrast exam. Patient is status post cholecystectomy.? PANCREAS: Grossly unremarkable.? SPLEEN: Unremarkable.? ADRENAL GLANDS: Unremarkable.? KIDNEYS AND URETERS: Bilateral extrarenal pelvises noted. No obstructing calculus identified. BLADDER: Moderately distended with slight mural prominence. Punctate focus of gas noted in the bladder. GASTROINTESTINAL TRACT: Colonic diverticulosis is noted. The small and large bowel are otherwise unremarkable without evidence of obstruction or pericolonic inflammatory change. No free fluid or free air is seen. ABDOMINAL WALL: No significant hernia is appreciated.? LYMPH NODES: No lymphadenopathy is seen, though assessment is limited in the absence of intravenous contrast. VASCULAR: Mild scattered atherosclerotic calcification. PELVIC VISCERA: Patient is status post hysterectomy. OSSEOUS STRUCTURES: Degenerative changes are noted in the spine. Retrolistheses of L4 on L5 and L5 on S1 are favored to be chronic in this setting. Coarsened trabecular appearance in the left pelvis and proximal femur is suggestive of Paget's disease. IMPRESSION: 1.? Mild prominence of the urinary bladder wall, which may indicate cystitis. Punctate focus of gas in the bladder could reflect sequelae of recent catheterization. 2.? Coarsened trabecular appearance in the left pelvis and proximal femur, suggestive of Paget's disease. ? Assessment and Plan (1) Flank pain: Status: Acute (2) Recurrent UTI: Status: Acute (3) Bacteria in urine: Status: Acute Plan Abx per ID urine c/s - Ecoli Discussed outpatient cysto Discussed vaginal estrogen, vagifem 2x weekly, M/T at bedtime FU as outpt in 2 weeks Time Spent With Patient Time: Total time managing care of this patient today ____ minutes. Procedures Date of Service Date of Service: 12/14/22
[2022-12-13 15:12] VITALS: BP 154/65; PULSE 68; RESP 18; TEMP 36.9; O2SAT 95
[2022-12-13] MEDS: 0.9 % Sodium Chloride Flush 3 ML SYRINGE IVFLUSH ×2 (15:15→19:18)
[2022-12-13] MEDS: Acetaminophen 325 MG TABLET 650 MG PO (17:42)
[2022-12-13 20:00] VITALS: BP 143/65; PULSE 65; RESP 20; TEMP 35.8; O2SAT 98
[2022-12-13] MEDS: busPIRone HCl 5 MG TABLET 15 MG PO (20:46)
[2022-12-14 02:54] VITALS: BP 135/62; PULSE 70; RESP 16; TEMP 36.2; O2SAT 99
[2022-12-14] MEDS: oxyCODONE HCl Immed Release 5 MG TABLET PO ×2 (05:42→12:57)
[2022-12-14] MEDS: Levothyroxine Sodium 75 MCG TABLET PO (05:42)
[2022-12-14] MEDS: Enoxaparin Sodium 40 MG/0.4 ML SYRINGE SUBCUT (05:42)
[2022-12-14] MEDS: Omeprazole 20 MG CAPSULE.DR PO (05:42)
[2022-12-14] MEDS: cefTRIAXone sodium 1 GM in 0.9 % Sodium Chloride 50 ML IV (05:45)
[2022-12-14 07:35] VITALS: BP 120/56; PULSE 70; RESP 20; TEMP 36.4; O2SAT 94
[2022-12-14] MEDS: Furosemide 40 MG TABLET PO (08:25)
[2022-12-14] MEDS: Acetaminophen 325 MG TABLET 650 MG PO (08:25)
[2022-12-14] MEDS: lamoTRIgine 100 MG TABLET 200 MG PO (08:25)
[2022-12-14] MEDS: Atorvastatin Calcium 20 MG TABLET PO (08:25)
[2022-12-14] MEDS: Loratadine 10 MG TABLET PO (08:26)
[2022-12-14] MEDS: Escitalopram Oxalate 20 MG TABLET PO (08:26)
[2022-12-14] MEDS: busPIRone HCl 5 MG TABLET PO (08:26)
[2022-12-14] MEDS: amLODIPine Besylate 10 MG TABLET PO (08:26)
[2022-12-14] MEDS: Losartan Potassium 50 MG TABLET 100 MG PO (08:26)
[2022-12-14] MEDS: Buprenorphine HCL 2 MG TAB.SUBL 4 MG SUBLINGUAL ×2 (08:30→15:09)
[2022-12-14] MEDS: polyethylene glycoL 3350 17 GM POWD.PACK PO (08:30)
[2022-12-14] MEDS: Lidocaine 4 % Patch ADH..PATCH 3 PATCH TRANSDERMA (08:31)
[2022-12-14] MEDS: 0.9 % Sodium Chloride Flush 3 ML SYRINGE IVFLUSH (08:35)
--- NOTE | 2022-12-14 11:47 | PM.DS ---
DS: Providers Provider Date of Service: 12/14/22 Date of admission: 12/12/22 05:23 Primary care physician: Debi Cisse MD Consults: 12/12/22 10:35 Consult to Infectious Diseases Routine Consulting Provider: [facility] [place] Reason for consultation: recurrent UTI Has provider been notified: No 12/13/22 11:29 Consult to Urology Routine Consulting Provider: Sridhar Scott Reason for consultation: recurrent UTI Has provider been notified: No DS: Diagnosis Discharge Diagnosis (1) Flank pain: Status: Acute (2) Recurrent UTI: Status: Acute (3) Bacteria in urine: Status: Acute DS: Summary Hospital Course Hospital Course: This 77-year-old female medical history of GERD, HLD, HTN, CARMEN on CPAP recurrent UTI, comes into the hospital with complaints of urinary incontinence as well as left flank pain.? Patient was recently discharged from hospital on completed a course of antibiotics for UTI.? Patient reports that she was compliant and completed all her medications.? She reports that she also had a fall 3 days ago that was mechanical on her right side.? Patient right-sided pain that is radiating to the groin area is very severe that prompted her to come to the hospital, she is describing it as 10/10, constant, not relieved with her pain medications.? Patient otherwise denies any shortness of breath, describes pain in the left-sided chest that is sharp stabbing in characteristic, similar to a heartburn, relieved with Gaviscon, denies any diarrhea constipation, no lower extremity edema.? No numbness tingling or weakness.? On arrival to the ED patient hemodynamically stable Labs are significant for WBC count of 5.2, stable hemoglobin, UA positive for large leukocyte Estrace, nitrites, WBC as well as bacteria. Patient started on IV antibiotics and will be admitted for further management UTI. no evidence of sepsis. recent treatment for the same. Hx of ecoli UTI for a few years now. some degree of colonication. urine culture growing Gram-negative rods, similar to previous. Treated with IV ceftriaxone. Will continue for a total of 21 days of antibiotics. She will follow up with Urology as an outpatient for initiation of Vagifem. acute on chronic back pain. does not seem related to UTI. no evidence of pyelonephritis. CT abdomen with no acute changes. pt has long history of chronic pain. treated for sciatic nerve pain [facility]. had a fall prior to admission likely cause of acute flare of chronic pain. seen by PT rec STR but pt is electing to return home. continue baseline pain medication. hypothyroidism continue levothyroxine hypertension stable, continue home antihypertensives GERD continue antacids mood continue baseline meds HLD continue statin Time Spent with Patient Time attestation: Total time managing care of this patient today ____ minutes. Discharge coordination time: Greater than 30 minutes Quality: Safe Use of Opioids Does Pt have an Active Cancer Diagnosis on the Problem List?: No Quality: Stroke Does the patient have a stroke diagnosis?: No Physical Exam Vital Signs: Vital Signs: Last Vital Signs Temp 97.5 F 12/14/22 07:35 Pulse 70 12/14/22 07:35 Resp 20 12/14/22 07:35 BP 120/56 L 12/14/22 07:35 Pulse Ox 94 12/14/22 07:35 O2 Del Method Room Air 12/14/22 07:35 BMI result Body Mass Index 27.3 Appearing in no acute distress head is normocephalic atraumatic eyes pupils are PERRLA sclera is anicteric mouth throat mucous membranes are intact and moist neck is supple no lymphadenopathy, no JVD noted lung sounds are clear to auscultation heart regular rate rhythm, clear S1, S2 positive bowel sounds, abdomen is soft, nontender neuro patient is alert x3, no focal deficits DS: Data Data Completed and Pending Labs on day of discharge: Preliminary micro results at discharge 12/12/22 05:19 Blood Culture - Preliminary Blood - Venous No growth after 48 hours. 12/12/22 05:19 Blood Culture - Preliminary Blood - Venous No growth after 48 hours. Discharge Plan Discharge Anticipated Discharge Date/Time: 12/14/22 13:17 Patient Disposition: Home Health Service Discharge Diagnosis: UTI Referrals: Sridhar Scott MD [Physician] - 1 Week Debi Cisse MD [Primary Care Provider] - 1 Week Discharge Medications: New cefuroxime axetil 500 mg tablet 500 mg PO BID 19 Days Qty: 38 0RF Continued furosemide 40 mg tablet 40 mg PO DAILY atorvastatin 20 mg tablet 20 mg PO DAILY methenamine hippurate 1 gram tablet 1 g PO BID cetirizine 10 mg Tablet 10 mg PO DAILY amlodipine 10 mg tablet 10 mg PO DAILY losartan 100 mg Tablet 100 mg PO DAILY latanoprost 0.005 % Drops 1 drp OPHTHALMIC (EYE) BEDTIME buspirone 5 mg Tablet 5 mg PO DAILY ascorbic acid (vitamin C) 1,000 mg Tablet 1,000 mg PO BID lamotrigine 200 mg Tablet 200 mg PO BID polyethylene glycol 3350 [Miralax] 17 gram Powder In Packet 17 g PO BID meloxicam 15 mg Tablet 15 mg PO DAILY psyllium Packet 1 packet PO BID Rx Instructions: mix into at least 8 oz of water or juice before administering levothyroxine 75 mcg Tablet 75 mcg PO DAILY lorazepam 0.5 mg Tablet 0.5 mg PO DAILY PRN (Reason: Anxiety) omeprazole 20 mg Capsule,Delayed Release(Dr/Ec) 20 mg PO BID@0630,1630 escitalopram oxalate 20 mg Tablet 20 mg PO DAILY multivitamin Tablet 1 tab PO DAILY cholecalciferol (vitamin D3) 10 mcg (400 unit) Tablet 10 mcg PO DAILY buprenorphine HCl 2 mg Tablet, Sublingual 4 mg SUBLINGUAL TID acetaminophen 500 mg Tablet 1,000 mg PO TID PRN (Reason: Pain, Mild) lidocaine 5 % Adhesive Patch,Medicated 3 patch TOPICAL DAILY Rx Instructions: leave on most painful area for up to 12 hrs Lactobacillus acidophilus Tablet,Chewable 2 tab PO BID buspirone 5 mg Tablet 15 mg PO BEDTIME Discharge Orders: Discharge Order (Routine); Ordered 12/14/22 Ordered By: Edelmira Hewitt Diet: Advance to usual diet Activity on Discharge: As tolerated Stand Alone Forms: Patient Portal Discharge page Care Plan Goals: follow-up with urologist in 2 weeks Health Concerns: UTI Plan of Treatment: Follow up with primary care provider as needed Take all medications as prescribed Assessment: See discharge summary
--- NOTE | 2022-12-14 13:51 | MHC.CM.PN ---
PT WILL DC HOME TODAY WITH RESUMPTION OF HER SURGICAL APPLIANCES [employer] FAMILY TO TRANSPORT
== END 2022-12-14 15:49 | disposition home health service (06) | DRG 690 ==
LOC: HO.ED 05:34 → HO.EDOVER 05:36 → HO.IMC 07:04 → HO.S3 12:57
PROVIDERS: Admitting Provider Internal Medicine; Emergency Provider Emergency Medicine; PCP Family Medicine; Visit Provider Nurse Practitioner Acute Care
DX: N39.0 Urinary tract infection, site not specified (principal); G47.33 Obstructive sleep apnea (adult) (pediatric); F41.9 Anxiety disorder, unspecified; G25.81 Restless legs syndrome; K21.9 Gastro-esophageal reflux disease without esophagitis; B96.20 Unspecified Escherichia coli [E. coli] as the cause of diseases classified elsewhere; M21.372 Foot drop, left foot; E78.5 Hyperlipidemia, unspecified; I10 Essential (primary) hypertension; Z87.440 Personal history of urinary (tract) infections; Z79.890 Hormone replacement therapy; Z79.899 Other long term (current) drug therapy
CPT/HCPCS: 36415; 74176; 80048; 80053; 81001; 82248; 83605; 83690; 84484; 85025; 87040; 87086; 87088; 87186; 93005; 99285; J0571; J0696; J1650; J2270

== ENCOUNTER 2022-12-14 19:17 | Emergency (ER) | payer MEDICARE, OTHER, SELFPAY ==
[2022-12-14 19:30] VITALS: BP 142/82; PULSE 94; O2SAT 95
[2022-12-14 19:33] VITALS: BP 161/70; PULSE 94; RESP 16; TEMP 36.9; O2SAT 96; BMI 24.9
--- NOTE | 2022-12-14 19:53 | PC.NURSE ---
Pt presenting to ER via EMS for pain in her low back into her right hip. Pt reports she was discharged [place] [facility] [place] around 1530 with a septic UTI. Prior to discharge, pt used the large bedpan. Pt went home then noticed a sharp pain radiating from her back to her left hip. Pt reported pain is excruciating and she is having a hard time sitting still. Pt is A&Ox4, GCS 15, with warm, dry skin.
[2022-12-14 20:00] VITALS: BP 148/62; PULSE 79; RESP 16; TEMP 37; O2SAT 93
--- NOTE | 2022-12-14 20:00 | ED.EXTPRO ---
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 managed by pain clinic just discharged today at noon time for UTI after 2 days of stay prior to discharge patient was placed on bedpan for urination noticed some pain in the right hip area when she is home went home noticed more pain and now pain is radiating to the right leg similar to that in the past when she had sciatica. No fall no deformity Related Data Home Medications Medication Instructions Recorded Confirmed Lactobacillus acidophilus 2 tab PO BID 10/21/22 12/12/22 acetaminophen 500 mg tablet 1,000 mg PO TID PRN Pain, Mild 10/21/22 12/12/22 amlodipine 10 mg tablet 10 mg PO DAILY 10/21/22 12/12/22 ascorbic acid (vitamin C) 1,000 mg 1,000 mg PO BID 10/21/22 12/12/22 tablet atorvastatin 20 mg tablet 20 mg PO DAILY 10/21/22 12/12/22 buprenorphine HCl 2 mg sublingual 4 mg sublingual TID 10/21/22 12/12/22 tablet buspirone 5 mg tablet 5 mg PO DAILY 10/21/22 12/12/22 cetirizine 10 mg tablet 10 mg PO DAILY 10/21/22 12/12/22 cholecalciferol (vitamin D3) 10 10 mcg PO DAILY 10/21/22 12/12/22 mcg (400 unit) tablet escitalopram oxalate 20 mg tablet 20 mg PO DAILY 10/21/22 12/12/22 furosemide 40 mg tablet 40 mg PO DAILY 10/21/22 12/12/22 lamotrigine 200 mg tablet 200 mg PO BID 10/21/22 12/12/22 latanoprost 0.005 % eye drops 1 drp ophthalmic (eye) BEDTIME 10/21/22 12/12/22 levothyroxine 75 mcg tablet 75 mcg PO DAILY 10/21/22 12/12/22 lidocaine 5 % topical patch 3 patch topical DAILY 10/21/22 12/12/22 lorazepam 0.5 mg tablet 0.5 mg PO DAILY PRN Anxiety 10/21/22 12/12/22 losartan 100 mg tablet 100 mg PO DAILY 10/21/22 12/12/22 meloxicam 15 mg tablet 15 mg PO DAILY 10/21/22 12/12/22 methenamine hippurate 1 gram tablet 1 g PO BID 10/21/22 12/12/22 multivitamin 1 tab PO DAILY 10/21/22 12/12/22 omeprazole 20 mg capsule,delayed 20 mg PO BID@0630,1630 10/21/22 12/12/22 release polyethylene glycol 3350 17 gram 17 g PO BID 10/21/22 12/12/22 oral powder packet (Miralax) psyllium 1 packet PO BID 10/21/22 12/12/22 buspirone 5 mg tablet 15 mg PO BEDTIME 11/23/22 12/12/22 Previous Rx's Medication Instructions Recorded cefuroxime axetil 500 mg tablet 500 mg PO BID 19 days #38 tabs 12/14/22 cyclobenzaprine 5 mg tablet 5 mg PO TID PRN muscle spasm #20 12/14/22 tabs Allergies Allergy/AdvReac Type Severity Reaction Status Date / Time atropine [From ] Allergy Unknown Verified 11/22/22 21:16 clams Allergy Unknown Verified 11/22/22 21:16 crab Allergy Unknown Verified 11/22/22 21:16 enalaprilat [From Vasotec] Allergy Blister Verified 11/22/22 21:16 hyoscyamine [From ] Allergy Unknown Verified 11/22/22 21:16 phenobarbital Allergy Unknown Verified 11/22/22 21:16 scopolamine [From ] Allergy Unknown Verified 11/22/22 21:16 shellfish derived Allergy Unknown Verified 11/22/22 21:16 Sulfa (Sulfonamide Allergy Unknown Verified 11/22/22 21:16 Antibiotics) Review of Systems Review of Systems: Yes all other systems are reviewed and are negative PMFSH Past Medical History Medical History Acute hip pain Anxiety E coli bacteremia GERD (gastroesophageal reflux disease) Hyperlipidemia Hypertension Hypothyroidism Left arm weakness Lumbar pain Lymphoma CARMEN on CPAP Peripheral neuropathy Recurrent UTI Resting tremor Restless leg syndrome Urinary incontinence Surgical History S/P radiation therapy Social History Social History Household Members: None Housing: Other Housing Other:: senior housing Do you presently have visiting nurse or other home services: Yes Alcohol intake: never Patient Tobacco Use Status: Never used Tobacco Smoked in Last 30 Days: No Use of substances other than those prescribed or required for medical reasons: No Advance Directives: No Advance Directives Information Provided: No service: No Current occupational status: retired Physical Exam Vital Signs: Vital Signs: Last Vital Signs Temp 98.6 F 12/14/22 20:00 Pulse 79 12/14/22 20:00 Resp 16 12/14/22 20:00 BP 148/62 H 12/14/22 20:00 Pulse Ox 93 12/14/22 20:00 O2 Del Method Room Air 12/14/22 20:00 BMI result Body Mass Index 24.9 Appearance: Alert. Oriented X3. In mild distress. ENT: Pharynx normal. Oral Mucosa moist Neck: Normal inspection. Neck supple. CVS: Normal heart rate and rhythm. Pulses normal. Respiratory: No respiratory distress. Equal air entry bilateral, no wheezing/rales/rhonchi Abdomen: Soft and nontender. Bowel sounds are present, no mass palpable, no CVA tenderness Skin: Skin warm and dry. Normal skin color. Normal skin turgor. Extremities: No lower extremity edema. No calf tenderness diffuse tenderness right hip area tenderness at r sciatic notch area SLR positive at 45 degrees Neuro: Oriented X 3. No motor deficit. No sensory deficit.No cerebellar signs , cranial nerves II-XII intact Medications Administered Discontinued Medications Generic Name Dose Route Start Last Admin Trade Name Garry PRN Reason Stop Dose Admin Cyclobenzaprine HCl 10 mg 12/14/22 21:44 12/14/22 21:50 Cyclobenzaprine Hcl 10 Mg Tablet PO 12/14/22 21:45 10 mg ONCE ONE Administration Morphine Sulfate 15 mg 12/14/22 20:12 12/14/22 20:29 Morphine Sulfate Immed Release 15 Mg Tablet PO 12/14/22 20:13 15 mg ONCE ONE Administration Medical Decision Making Medical Decision Making [facility] Narrative: Patient x-ray negative for any acute fracture does have history of sciatica on chronic pain management discharge patient home on [facility] already has buprenorphine at home able to ambulate in the ER will discharge patient home Discharge Plan Discharge Clinical Impression: Right sided sciatica Patient Disposition: Home, Self-Care Instructions: Sciatica (ED) Additional Instructions: Continue pain medication Flexeril for muscle relaxation every 8 hours as needed Prescriptions: New cyclobenzaprine 5 mg tablet 5 mg PO TID PRN (Reason: muscle spasm) Qty: 20 0RF No Action furosemide 40 mg tablet 40 mg PO DAILY atorvastatin 20 mg tablet 20 mg PO DAILY methenamine hippurate 1 gram tablet 1 g PO BID cetirizine 10 mg Tablet 10 mg PO DAILY amlodipine 10 mg tablet 10 mg PO DAILY losartan 100 mg Tablet 100 mg PO DAILY latanoprost 0.005 % Drops 1 drp OPHTHALMIC (EYE) BEDTIME buspirone 5 mg Tablet 5 mg PO DAILY ascorbic acid (vitamin C) 1,000 mg Tablet 1,000 mg PO BID lamotrigine 200 mg Tablet 200 mg PO BID polyethylene glycol 3350 [Miralax] 17 gram Powder In Packet 17 g PO BID meloxicam 15 mg Tablet 15 mg PO DAILY psyllium Packet 1 packet PO BID Rx Instructions: mix into at least 8 oz of water or juice before administering levothyroxine 75 mcg Tablet 75 mcg PO DAILY lorazepam 0.5 mg Tablet 0.5 mg PO DAILY PRN (Reason: Anxiety) omeprazole 20 mg Capsule,Delayed Release(Dr/Ec) 20 mg PO BID@0630,1630 escitalopram oxalate 20 mg Tablet 20 mg PO DAILY multivitamin Tablet 1 tab PO DAILY cholecalciferol (vitamin D3) 10 mcg (400 unit) Tablet 10 mcg PO DAILY buprenorphine HCl 2 mg Tablet, Sublingual 4 mg SUBLINGUAL TID acetaminophen 500 mg Tablet 1,000 mg PO TID PRN (Reason: Pain, Mild) lidocaine 5 % Adhesive Patch,Medicated 3 patch TOPICAL DAILY Rx Instructions: leave on most painful area for up to 12 hrs Lactobacillus acidophilus Tablet,Chewable 2 tab PO BID buspirone 5 mg Tablet 15 mg PO BEDTIME cefuroxime axetil 500 mg tablet 500 mg PO BID 19 Days Qty: 38 0RF Interventions: ED Discharge Assessment Last Done: 12/14/22 22:04 Discharge Date/Time: 12/14/22 22:04
== END 2022-12-14 22:04 | disposition home or self-care (01) ==
PROVIDERS: Emergency Provider Internal Medicine
DX: M54.31 Sciatica, right side (principal); M25.551 Pain in right hip; I10 Essential (primary) hypertension; E78.5 Hyperlipidemia, unspecified; Z87.440 Personal history of urinary (tract) infections; Z79.899 Other long term (current) drug therapy
CPT/HCPCS: 72100; 73502; 99283; 99284

== ENCOUNTER 2022-12-15 01:53 | Emergency (ER) | payer MEDICARE, OTHER, SELFPAY ==
[2022-12-15 02:07] VITALS: BP 114/40; BP 175/82; PULSE 106; PULSE 80; RESP 18; TEMP 36.6; O2SAT 93; O2SAT 98; BMI 25.8
--- NOTE | 2022-12-15 03:37 | PC.NURSE ---
Pt A&Ox4, reports 10/10 chronic R hip pain, and unable to manage pain at home. Pt reports pain is spasms feeling and worsens with movement. Pt changed to hospital gown, skin intact, warm and dry.
--- NOTE | 2022-12-15 05:26 | PC.NURSE ---
Pt appears to be sleeping at this time, RR 16.
[2022-12-15 05:30] VITALS: BP 158/64; PULSE 76; RESP 16; O2SAT 97
--- NOTE | 2022-12-15 06:40 | PC.NURSE ---
Pt checked for incontinence, repositioned, pillow placed between legs.
--- NOTE | 2022-12-15 07:14 | PC.NURSE ---
transferred to ED20. reports increasing pain in right hip. is axox3. pale. states she lives alone with her cats. pain is in right buttocks. area has no bruising/abrasion. pt reports a hard fall a week ago.
--- NOTE | 2022-12-15 07:21 | ED.GENADULT ---
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 coli bacteremia Juen 2022, currently on antibiotics for E. Coli UTI since 12/12 who presents back to the ER with worsening acute on chronic right hip and right sided back pain radiating down the leg. She states the pain started when she was inpatient here and she was placed on the wrong kind of bedpan. She was seen here in the ER for the same last night. She had x-rays performed showing some degenerative changes but no fractures. She was discharged with flexeril. She presents back with ongoing pain in the right upper posterior leg with muscle spasms. No improvement with flexeril and her buprinorphine. She states she lives in senior housing. She uses an electric wheelchair and uses a walker to stand and pivot. She has severe neuropathy in the LLE. She had a hard time transferring to her bed last night due to pain so she came back to the ER for evaluation. MD complaint: acute on chronic RLE pain Onset (ago): day(s) Location: right and lower extremity Radiation: back and extremity Severity: moderate Severity scale (1-10): 6 Quality: stabbing and aching Pain Consistency: constant Relieving factors: rest Exacerbating factors: movement Associated symptoms: denies other symptoms Treatments prior to arrival: none Related Data Home Medications Medication Instructions Recorded Confirmed Lactobacillus acidophilus 2 tab PO BID 10/21/22 12/15/22 acetaminophen 500 mg tablet 1,000 mg PO TID PRN Pain, Mild 10/21/22 12/15/22 amlodipine 10 mg tablet 10 mg PO DAILY 10/21/22 12/15/22 ascorbic acid (vitamin C) 1,000 mg 1,000 mg PO BID 10/21/22 12/15/22 tablet atorvastatin 20 mg tablet 20 mg PO DAILY 10/21/22 12/15/22 buprenorphine HCl 2 mg sublingual 4 mg sublingual TID 10/21/22 12/15/22 tablet buspirone 5 mg tablet 5 mg PO DAILY 10/21/22 12/15/22 cetirizine 10 mg tablet 10 mg PO DAILY 10/21/22 12/15/22 cholecalciferol (vitamin D3) 10 10 mcg PO DAILY 10/21/22 12/15/22 mcg (400 unit) tablet escitalopram oxalate 20 mg tablet 20 mg PO DAILY 10/21/22 12/15/22 furosemide 40 mg tablet 40 mg PO DAILY 10/21/22 12/15/22 lamotrigine 200 mg tablet 200 mg PO BID 10/21/22 12/15/22 latanoprost 0.005 % eye drops 1 drp ophthalmic (eye) BEDTIME 10/21/22 12/15/22 levothyroxine 75 mcg tablet 75 mcg PO DAILY@0600 10/21/22 12/15/22 lidocaine 5 % topical patch 3 patch topical DAILY 10/21/22 12/15/22 lorazepam 0.5 mg tablet 0.5 mg PO DAILY PRN Anxiety 10/21/22 12/15/22 losartan 100 mg tablet 100 mg PO DAILY 10/21/22 12/15/22 meloxicam 15 mg tablet 15 mg PO DAILY 10/21/22 12/15/22 methenamine hippurate 1 gram tablet 1 g PO BID 10/21/22 12/15/22 multivitamin 1 tab PO DAILY 10/21/22 12/15/22 omeprazole 20 mg capsule,delayed 20 mg PO BID@0630,1630 10/21/22 12/15/22 release polyethylene glycol 3350 17 gram 17 g PO BID 10/21/22 12/15/22 oral powder packet (Miralax) psyllium 1 packet PO BID 10/21/22 12/15/22 buspirone 5 mg tablet 15 mg PO BEDTIME 11/23/22 12/15/22 Previous Rx's Medication Instructions Recorded cefuroxime axetil 500 mg tablet 500 mg PO BID 19 days #38 tabs 12/14/22 Allergies Allergy/AdvReac Type Severity Reaction Status Date / Time atropine [From ] Allergy Unknown Verified 12/15/22 02:16 clams Allergy Unknown Verified 12/15/22 02:16 crab Allergy Unknown Verified 12/15/22 02:16 enalaprilat [From Vasotec] Allergy Blister Verified 12/15/22 02:16 hyoscyamine [From ] Allergy Unknown Verified 12/15/22 02:16 phenobarbital Allergy Unknown Verified 12/15/22 02:16 scopolamine [From ] Allergy Unknown Verified 12/15/22 02:16 shellfish derived Allergy Unknown Verified 12/15/22 02:16 Sulfa (Sulfonamide Allergy Unknown Verified 12/15/22 02:16 Antibiotics) Review of Systems Review of Systems: Yes all other systems are reviewed and are negative [facility] Past Medical History Medical History Acute hip pain Anxiety E coli bacteremia GERD (gastroesophageal reflux disease) Hyperlipidemia Hypertension Hypothyroidism Left arm weakness Lumbar pain Lymphoma CARMEN on CPAP Peripheral neuropathy Recurrent UTI Resting tremor Restless leg syndrome Urinary incontinence Surgical History S/P radiation therapy Social History Social History Household Members: None Housing: Other Housing Other:: senior housing Do you presently have visiting nurse or other home services: Yes Alcohol intake: never Patient Tobacco Use Status: Never used Tobacco Smoked in Last 30 Days: No Use of substances other than those prescribed or required for medical reasons: No Advance Directives: No Advance Directives Information Provided: Yes service: No Current occupational status: retired Physical Exam ED Vital Signs: Vital Signs - 24 hr 12/15/22 02:07 12/15/22 05:30 Temperature 97.9 F Pulse Rate 80 76 Respiratory Rate 18 16 Blood Pressure 114/40 L 158/64 H Pulse Oximetry 93 97 Oxygen Delivery Method Room Air Room Air BMI result Body Mass Index 25.8 Appearance: Alert. Oriented X3. No acute distress. Head: normocephalic, atraumatic. Eyes: Pupils equal, round and reactive to light. ENT: Pharynx normal. No tonsillar swelling or exudate. Neck: Normal inspection. Neck supple. CVS: Normal heart rate and rhythm. Pulses normal. Respiratory: No respiratory distress. Breath sounds normal. Abdomen: Soft and nontender. +BS x4 Skin: Skin warm and dry. Normal skin color. Normal skin turgor. No rashes. Extremities: No lower extremity edema. No joint swelling. Right lower extremity held in partial flexion. Tenderness of the posterior proximal thigh with soft tissue spasm. Neuro/psych: Oriented X 3. CN II-XII intact. Normal speech and cognition. Course Reevaluation(s) Reevaluation #1: Physician observation started at 7:36am. Patient placed in physician observation because patient is awaiting PT evaluation for the possible need of short term rehab. At the time observation was started patient's vital signs were stable. Patient is alert and oriented. RLE with tenderness proximally and posteriorly. CV: RRR and lungs are clear. Will continue to monitor. Home med rec pending, repeat UA pending, PO pain meds ordered. 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 coli bacteremia Juen 2022, currently on antibiotics for E. Coli UTI since 12/12 who presents back to the ER with worsening acute on chronic right hip and right sided back pain radiating down the leg. X-rays from yesterday were reviewed. Soft tissues are soft and compressible on exam, no cellulitic changes. no swelling to suggest DVT. Patient placed in physician observation pending PT consult and possible placement to short term rehab. Differential Diagnosis Differential Diagnoses: The differential diagnosis associated with the presentation includes sciatica, lumbar radiculopathy, muscle spasm, chronic pain syndrome, myositis, DVT Admission/Observation Consideration of admission/observation: Escalation of care including admission/observation considered 77 yo female with multiple comorbidities here with acute on chronic pain, not safe at home. pain not controlled with home narcotic prescription and new muscle relaxer. Radiology Impression Discussion of test interpretation with radiology: I have reviewed the radiologist's reading. Independent Historian Clinical information obtained from an independent historian. History obtained from or confirmed by: EMS External Record Review External record reviewed: Office record, Outpatient record, Prior outpatient labs and Prior outpatient radiology Tests considered The following testing was considered but not selected: CT hip/pelvis considered but her pain is localized to her posterior right thigh and x-rays were negative Prescription Management I considered prescription management with: Pain Medication Chronic Conditions Patient?s care impacted by: Other (chronic pain, neuropathy, stroke) Social Determinants Patient?s care significantly limited by Social Determinants of Health including: Problems related to primary support group and Other Social Determinant of Health Critical Care Time Critical Care Time Critical Care Time: No Discharge Plan Discharge Clinical Impression: Acute pain of right thigh Patient Disposition: Still a Patient Prescriptions: No Action furosemide 40 mg tablet 40 mg PO DAILY atorvastatin 20 mg tablet 20 mg PO DAILY methenamine hippurate 1 gram tablet 1 g PO BID cetirizine 10 mg Tablet 10 mg PO DAILY amlodipine 10 mg tablet 10 mg PO DAILY losartan 100 mg Tablet 100 mg PO DAILY latanoprost 0.005 % Drops 1 drp OPHTHALMIC (EYE) BEDTIME buspirone 5 mg Tablet 5 mg PO DAILY ascorbic acid (vitamin C) 1,000 mg Tablet 1,000 mg PO BID lamotrigine 200 mg Tablet 200 mg PO BID polyethylene glycol 3350 [Miralax] 17 gram Powder In Packet 17 g PO BID meloxicam 15 mg Tablet 15 mg PO DAILY psyllium Packet 1 packet PO BID Rx Instructions: mix into at least 8 oz of water or juice before administering levothyroxine 75 mcg Tablet 75 mcg PO DAILY@0600 lorazepam 0.5 mg Tablet 0.5 mg PO DAILY PRN (Reason: Anxiety) omeprazole 20 mg Capsule,Delayed Release(Dr/Ec) 20 mg PO BID@0630,1630 escitalopram oxalate 20 mg Tablet 20 mg PO DAILY multivitamin Tablet 1 tab PO DAILY cholecalciferol (vitamin D3) 10 mcg (400 unit) Tablet 10 mcg PO DAILY buprenorphine HCl 2 mg Tablet, Sublingual 4 mg SUBLINGUAL TID acetaminophen 500 mg Tablet 1,000 mg PO TID PRN (Reason: Pain, Mild) lidocaine 5 % Adhesive Patch,Medicated 3 patch TOPICAL DAILY Rx Instructions: leave on most painful area for up to 12 hrs Lactobacillus acidophilus Tablet,Chewable 2 tab PO BID buspirone 5 mg Tablet 15 mg PO BEDTIME cefuroxime axetil 500 mg tablet 500 mg PO BID 19 Days Qty: 38 0RF
--- NOTE | 2022-12-15 09:15 | PHA.MEDREC ---
Pharmacy Consult ? Medication Reconciliation Pharmacy has completed the medication reconciliation.Med rec complete using discharge from 12/14/22
--- NOTE | 2022-12-15 10:56 | PC.NURSE ---
pt has been sleeping since shortly after taking pain meds. awaits PT
--- NOTE | 2022-12-15 11:36 | MHC.CM.ED ---
Received consult for assessment of d/c needs: Met with pt who was d/c'd to home on 12/14 but returned to ED x2 for c/o hip pain. No clinical findings noted to explain pain or support an injury. Pt states she is not able to return to home and will need STR placement. Pt states she has [address] care and family support from dtr at home but this will not be adequate, per her. Pt will need PT eval which will occur on 12/16. Broad referrals placed (except [facility] in [place] per request) should she qualify for placement. HCP on file
[2022-12-15 12:00] VITALS: BP 143/60; PULSE 68; RESP 16; TEMP 36.7; O2SAT 95
--- NOTE | 2022-12-15 13:51 | PC.NURSE ---
rn to rn with Jing in overflow
[2022-12-15 14:00] VITALS: BP 154/70; PULSE 68; RESP 16; TEMP 36; O2SAT 94
--- NOTE | 2022-12-15 14:19 | HE.PHANOTE ---
Received patient own Lactobacillus, verified, added label. Brought down to overflow pt own bin.
--- NOTE | 2022-12-15 19:05 | PC.NURSE ---
received care of this patient at approx 1400, the reassessment of meds was not done due to she was not my patient at that time
[2022-12-15 22:29] VITALS: BP 159/63; PULSE 66; O2SAT 97
[2022-12-16 00:32] VITALS: TEMP 35.9
--- NOTE | 2022-12-16 01:09 | PC.NURSE ---
Assumed care for patient at 2300. Resting quietly at present.
[2022-12-16 05:16] VITALS: BP 150/66; PULSE 67; RESP 16; TEMP 36; O2SAT 94
--- NOTE | 2022-12-16 09:47 | PC.NURSE ---
Patient received joshua-care this morning, purewick in place at this time. Patient was given some warm packs per request.
--- NOTE | 2022-12-16 14:05 | MHC.CM.ED ---
Patient remains in ER. Physical therapy eval completed. Short term rehab is recommended. Referral made to all 3 acute rehab. No bed offers made. Patient was inpatient at [facility] 11/22-11/26 and 12/12-12/14. Clinical updates sent to facilities still following: [facility], [facility], [facility], and [facility]. Continue to monitor for d/c needs.
[2022-12-16 14:48] VITALS: BP 130/61; PULSE 74; RESP 18; TEMP 36.3; O2SAT 96
--- NOTE | 2022-12-16 15:37 | PC.NURSE ---
Pt lying in bed using ipad. States mild discomfort to hip and back. Offered medication but pt declined at this time.
[2022-12-16 16:00] VITALS: BP 136/61; PULSE 70; RESP 16; TEMP 36.8; O2SAT 94
--- NOTE | 2022-12-16 16:41 | MHC.EDTECH ---
Brought patient a pitcher of ice water and a can of diet jostin ana paula.
--- NOTE | 2022-12-16 17:32 | MHC.EDTECH ---
Assist nurse in repositioning patient and boost up in bed.
--- NOTE | 2022-12-16 18:08 | PC.NURSE ---
Pt repositioned. Requested a muscle relaxer. Flexeril given. Will monitor for effectiveness
--- NOTE | 2022-12-16 18:45 | MHC.CM.ED ---
Pt uses an electric wheelchair. Has chronic back pain. Worsening hip pain. Seen at [facility]. Has acupuncture which has helped with the amount of pain medicines she has to take. Has been going to outpatient PT for 1.5 years at [facility] in . Sees Dr. Bravo at the [facility]. Pt was in the [facility]. Uses Subutex for chronic pain management. Tells CM she had a stroke in October, had L hand weakness, that has greatly improved. Was able to self transfer in her wheelchair, but since last hospitalization on 12/12-12/14, has had worsening pain and unable to self transfer. States worse after using regular bed sanchez instead of fracture sanchez. Pt is aware that [facility] are following, but no bed offers made. Pt is agreeable to referrals 50 [place]. Referrals made.
[2022-12-16 22:27] VITALS: BP 138/57; PULSE 66; RESP 20; O2SAT 96
--- NOTE | 2022-12-17 03:17 | PC.NURSE ---
sleeping comfortably, no distress. waiting for placement to short term rehab for PT; hx of sciatica.
[2022-12-17 06:00] VITALS: BP 171/77; PULSE 69; RESP 16; TEMP 35.9; O2SAT 95
[2022-12-17 07:29] VITALS: BP 142/66; PULSE 66; RESP 16; TEMP 36.1; O2SAT 96
--- NOTE | 2022-12-17 10:37 | PC.NURSE ---
Patient a +O x 4. C/O right hip/leg pain. Patient repositioned OOB to recliner, oxycodone and flexeril given for pain. Lidocaine patches and warm packs applied to right hip/leg area. Patient sleeping comfortably in recliner at this time.
--- NOTE | 2022-12-17 11:47 | MHC.CM.ED ---
Patient remains in ER overflow. [facility] is able to offer a bed. Patient accepts bed. Kael NORRIS booked for 2pm. Patient, September RN and Jasmin GARVEY aware. Continue to monitor for d/c needs.
--- NOTE | 2022-12-17 13:38 | MHC.EDTECH ---
Patient was complaining of being wet from purwick, this tech removed purwick and cleaned patient, placing patient on a bedpan, patient had a small amount of soft stool, and urine, patient was then cleaned and dried, powdered and requested a brief for future transport. patient is currently comfortable and awaiting ems transport.
--- NOTE | 2022-12-17 17:39 | PC.NURSE ---
On December 15, patient refused Buprenorphine once already puled from the [facility], i did the waste with an RN once I left overflow on the main PICS but forgot to undo the med in the aug.
== END 2022-12-17 14:40 | disposition skilled nursing facility (03) ==
PROVIDERS: Emergency Provider Emergency Medicine Emergency Medical Services; PCP Family Medicine
DX: M25.551 Pain in right hip (principal); I10 Essential (primary) hypertension; M79.604 Pain in right leg; G89.29 Other chronic pain; C85.90 Non-Hodgkin lymphoma, unspecified, unspecified site; Z87.440 Personal history of urinary (tract) infections; Z79.2 Long term (current) use of antibiotics; Z79.899 Other long term (current) drug therapy; Z20.822 Contact with and (suspected) exposure to COVID-19
CPT/HCPCS: 81001; 87635; 96372; 97162; 99285; J0571; J1650

== ENCOUNTER 2023-04-04 04:55 | Emergency (ER) | payer MEDICARE, OTHER, SELFPAY ==
--- NOTE | 2023-04-04 | ECG_ITS ---
Test Reason : CHEST JEFFREY Blood Pressure : / mmHG Vent. Rate : 064 BPM Atrial Rate : 064 BPM P-R Int : 186 ms QRS Dur : 088 ms QT Int : 414 ms P-R-T Axes : 056 020 057 degrees QTc Int : 427 ms Normal sinus rhythm RSR' or QR pattern in V1 suggests right ventricular conduction delay Left atrial enlargement Abnormal ECG When compared with ECG of 12-DEC-2022 02:45, No significant change was found Referred By: Generic ED Physician Electronically Signed By:FAMILIA PINEDA MD
--- NOTE | ~2023-04-04 | XR_ITS ---
EXAMINATION: XR CHEST CLINICAL INFORMATION: Chest pain COMPARISON: 11/22/2022 TECHNIQUE: Frontal view of the chest was obtained. FINDINGS: Lung volumes are symmetric. No focal consolidation is seen. No evidence of pneumothorax, pleural effusion, or pulmonary edema. The cardiomediastinal contour is unremarkable. No acute osseous findings are seen. XR/XR chest 1V IMPRESSION: No acute cardiopulmonary findings.
[2023-04-04 05:02] VITALS: BP 150/70; PULSE 74; O2SAT 100; BMI 28.4
[2023-04-04 05:19] VITALS: BP 153/53; PULSE 66; RESP 16; TEMP 36.9; O2SAT 98
[2023-04-04 05:21] LABS: Basophils Percent Auto 0.5 % (0-2); Eosinophils Absolute Auto 0.1 X10*3/uL (0.0-0.4); Eosinophils Percent Auto 3.4 % (0-4); Hematocrit 40.6 % (37.0-47.0); Hemoglobin 13.6 g/dl (12.0-16.0); Imm Gran Abs Auto 0.01 X10*3/uL (0.00-0.03); Imm Gran Pct Auto 0.2 % (0.0-0.4); Lymphocytes Percent Auto 23.9 % (20-40); MANUAL DIFF FLAG NO; Mean Corpuscular HGB Conc 33.5 g/dl (31.0-35.0); Mean Corpuscular Hemoglobin 30.8 pg (27.0-33.0); Mean Corpuscular Volume 92.1 fL (80.0-98.0); Mean Platelet Volume 9.7 fL (9.4-12.3); Monocytes Absolute Auto 0.5 X10*3/uL (0.1-1.2); Monocytes Percent Auto 10.8 % (2-11); Neutrophils Absolute Auto 2.5 x10*3/uL (2.0-8.3); Neutrophils Percent Auto 61.2 % (45-73); Platelet Count 123 X10*3/uL (160-400); Red Blood Count 4.41 X10*6/uL (4.20-5.50); Red Cell Distribution Width 12.1 % (11.0-16.0); White Blood Count 4.2 X10*3/uL (4.8-10.8)
--- OUTSIDE RECORDS SUMMARY | 2023-04-04 05:37 | XMS_ITS | Continuity of Care Document ---
Author Name Unknown Organization [facility] [employer] [facility] Address [address] [place] [address]- Care Team Providers Care Homicide Squad Commanding Officer Name Role Phone Betito OSORIO, Debi M Primary Care Physician Encounter [facility] Date(s): 02/03/23 - 03/05/23 [facility] [employer] [facility] [address] [place] [address]- [place] Allergies, Adverse Reactions, Alerts Substance Reaction Severity Status phenobarbital Active Shrimp MOUTH SWELLED Active Other [...] Vacc (oldterm) 5 08/12/09 Given 1Admin Note: [facility] 2Location History: [facility] 3Result Comment: [06/04/2016] donna 4Result Comment: [04/08/2015] L&C 5Admin Note: DR. PASTOR, [place] Medications amLODIPine 10 mg oral tablet See Instructions, TAKE 1 TABLET BY MOUTH DAILY, # 90 each, 3 Refills, 09/24/21 10:21:00 EDT, [email or web address] #[id number], 168, cm, 09/24/21 10:10:00 EDT, Height Start Date: 09/24/21 Status: Ordered atorvastatin 20 mg oral tablet 1 tablet, By Mouth, Daily, # 90 tablet, 0 Refills, Maintenance, 02/19/23 15:21:00 EDT, [email or web address] #[id number], 168, cm, 01/15/23 10:41:00 EDT, Height Start Date: 02/19/23 Status: Ordered busPIRone 5 mg oral tablet [...] EDT, Compound Start Date: 12/26/18 Status: Ordered Diflucan 150 mg oral tablet 1 tablet = 150 mg, By Mouth, Once, May repeat in 72 hours as needed, # 2 tablet, 0 Refills, Soft Stop, 01/15/23 11:51:00 EDT, Tablet, [email or web address] #[id number], Partial fill upon patient request ifthe prescription is for a schedule II opioid drug.,... Start Date: 01/15/23 Status: Ordered Escitalopram By Mouth, Daily, 0 Refills, Maintenance, 10/12/22 17:24:00 EDT, Partial fill upon patient request if the prescription is for a schedule II opioid drug. Start Date: 10/12/22 Status: Ordered fluticasone 50 mcg/inh nasal spray 1 sprays, Nares, Both, 2 times a day, # 1 each, 5 Refills, Maintenance, [place] Start Date: 03/15/13 Stop Date: 09/11/13 Status: Ordered furosemide 40 mg oral tablet 1, tablet, By Mouth, Daily, # 90 tablet, Refills 3, Tot. Refills 3, Maintenance, 06/10/22 10:40:00 EST, Route to Pharmacy Electronically, [email or web address] #[id number], 168, cm, 06/10/22 10:25:00 EST, Height Start Date: 06/10/22 Status: Ordered Imvexxy Maintenance Pack 10 mcg vaginal insert 1 insert, Vaginally, Every Wednesday and , # 8 supp, 5 Refills, Maintenance, 11/30/22 13:30:00EDT, [email or web address] #[id number], Partial fill upon patient request, 168, cm, 11/30/22 13:08:00 EDT, Height Start Date: 11/30/22 Status: Ordered ipratropium nasal 21 mcg/inh spray See Instructions, PRN Nasal Congestion, 1 spray each nostril BID, # 1 each, 4 Refills, Maintenance,01/01/22 16:02:00 EDT, [email or web address] #[id number], Partial fill upon patient request if the [...] tablet, Refills 3, Route to Pharmacy Electronically, [email or web address] #[id number], 168, cm, 03/27/21 14:00:00 EDT, Height, 94.4, [...] 3 Refills, Maintenance, 04/12/20 10:50:00 EDT, Tablet, [email or web address] #15528, 162.56, cm, 03/01/20 14:13:00 EDT, Height, 94.4, [...] methenamine hippurate 1 gm oral tablet 1 tablet, By Mouth, 2 times a day, # 180 tablet, 0 Refills, Maintenance, 02/19/23 15:48:00 EDT, [email or web address] #[id number], 168, cm, 01/15/23 10:41:00 EDT, Height Start Date: 02/19/23 Status: Ordered MiraLax Powder = 17 Gm, By Mouth, 2 times a day, 0 Refills, Maintenance, 05/26/10 15:29:33 EST Start Date: 05/26/10 Status: Ordered Multivitamin By Mouth, Daily, 0 Refills, Maintenance, 08/01/14 16:38:28 Start Date: 08/01/14 Status: Ordered Nasacort Allergy 24HR 2 sprays, Daily, 0 Refills, Maintenance, 04/23/16 10:07:54 Start Date: 04/23/16 Status: Ordered Nystop 324854 u/gm powder 1 applicator, Topically, 2 times a day, for 30 days, # 60 Gm, 11 Refills, Acute 01/24/24 16:44:00 EDT, 01/29/23 16:44:00 EDT, Powder, [email or web address] #22390, Partial fill upon patient request ifthe prescription is for a schedule II opioid drug.,... Start Date: 01/29/23 Stop Date: 01/24/24 Status: Ordered omeprazole 20mg omeprazole 20mg, By Mouth, Daily, Refills 0, Maintenance, 12/26/18 10:00:30 EDT, Compound Start Date: 12/26/18 Status: Ordered Vitamin C 1000 mg oral tablet 1 tablet = 1,000 mg, By Mouth, 2 times a day, # 60 tablet, 0 Refills, Maintenance, 10/30/19 13:41:00 EDT, Tablet, [email or web address] #[id number], 162.56, cm, 08/17/19 16:32:00 EST, Height, 94.4, [...] Team Personnel Name: Marianne Perez RN Position: [facility] RN Member Role: Primary Care Nurse Name: Debi Cisse MD Position: [facility] Physician - Primary Care Member Role: PCP Address: Address: [address] [place] [address] [place] [address]- Name: Viola Gonzalez Position: [facility] Outreach Member Role: Lifetime Consulting Physician Care Team Related Persons Name: ITZEL GARCIA Name: AILYN ANDERSON Name: RAF NAVARRETE
--- OUTSIDE RECORDS SUMMARY | 2023-04-04 05:37 | XMS_ITS | Continuity of Care Document ---
Author Name Unknown Organization [facility] [employer] Address [address] [place] [address], [address] [place] [address]- Care Team Providers Care Sales Recruiting Coordinator Name Role Phone Betito OSORIO, Debi Lizama Primary Care Physician [phone] Encounter [facility] Date(s): 01/07/23 - 03/18/23 [facility] [employer] [facility] [address] [facility], 4th [place] [address]- Attending Physician: Rina Saravia MD Referring Physician: [...] Vacc (oldterm) 5 08/12/09 Given 1Admin Note: [facility] 2Location History: fdc 3Result Comment: [06/04/2016] donna 4Result Comment: [04/08/2015] L&C 5Admin Note: DR. PASTOR, [place] Medications amLODIPine 10 mg oral tablet See Instructions, TAKE 1 TABLET BY MOUTH DAILY, # 90 each, 3 Refills, 09/24/21 10:21:00 EDT, [facility] #[id number], 168, cm, 09/24/21 10:10:00 EDT, Height Start Date: 09/24/21 Status: Ordered atorvastatin 20 mg oral tablet 1 tablet, By Mouth, Daily, # 90 tablet, 0 Refills, Maintenance, 02/19/23 15:21:00 EDT, [facility] #[id number], 168, cm, 01/15/23 10:41:00 EDT, Height Start [...] Refills, Soft Stop, 01/15/23 11:51:00 EDT, Tablet, [facility] #27097, Partial fill upon patient request ifthe prescription [...] day, # 1 each, 5 Refills, Maintenance, [employer] Start Date: 03/15/13 Stop Date: 09/11/13 Status: Ordered furosemide 40 mg oral tablet 1, tablet, By Mouth, Daily, # 90 tablet, Refills 3, Tot. Refills 3, Maintenance, 06/10/22 10:40:00 EST, Route to Pharmacy Electronically, [facility] #[id number], 168, cm, 06/10/22 10:25:00 EST, Height Start Date: 06/10/22 Status: Ordered Imvexxy Maintenance Pack 10 mcg vaginal insert 1 insert, Vaginally, Every Wednesday and , # 8 supp, 5 Refills, Maintenance, 11/30/22 13:30:00EDT, [facility] #[id number], Partial fill upon patient request, 168, cm, 11/30/22 13:08:00 EDT, Height Start Date: 11/30/22 Status: Ordered ipratropium nasal 21 mcg/inh spray See Instructions, PRN Nasal Congestion, 1 spray each nostril BID, # 1 each, 4 Refills, Maintenance,01/01/22 16:02:00 EDT, [facility] #51908, Partial fill upon patient request if the [...] tablet, Refills 3, Route to Pharmacy Electronically, [facility] #[id number], 168, cm, 03/27/21 14:00:00 EDT, Height, 94.4, [...] 3 Refills, Maintenance, 04/12/20 10:50:00 EDT, Tablet, [facility] #40955, 162.56, cm, 03/01/20 14:13:00 EDT, Height, 94.4, [...] tablet, 0 Refills, Maintenance, 02/19/23 15:48:00 EDT, [facility] #[id number], 168, cm, 01/15/23 10:41:00 EDT, Height Start [...] 10:07:54 Start Date: 04/23/16 Status: Ordered Nystop 585567 u/gm powder 1 applicator, Topically, 2 times a day, for 30 days, # 60 Gm, 11 Refills, Acute 01/24/24 16:44:00 EDT, 01/29/23 16:44:00 EDT, Powder, [facility] #72098, Partial fill upon patient request ifthe prescription [...] 0 Refills, Maintenance, 10/30/19 13:41:00 EDT, Tablet, [facility] #16399, 162.56, cm, 08/17/19 16:32:00 EST, Height, 94.4, [...] Team Personnel Name: Ana YAP, Marianne Position: [facility] RN Member Role: Primary Care Nurse Name: Debi Cisse MD Position: [facility] Physician - Primary Care Member Role: PCP Address: Address: [address] [place] [address] Adult [place], [place] [address] Name: Viola Gonzalez Position: [facility] Outreach Member Role: Lifetime Consulting Physician Care Team Related Persons Name: ITZEL GARCIA Name: AILYN ANDERSON Name: RAF NAVARRETE
--- OUTSIDE RECORDS SUMMARY | 2023-04-04 05:38 | XMS_ITS | Continuity of Care Document ---
Author Name Unknown Organization [facility] [employer] Address [address] [place] [address], [address]t [place] [address]- Care Team Providers Care Natural Gas Engineer Name Role Phone Betito OSORIO, Debi Lizama Primary Care Physician Encounter [facility] [place] Date(s): 01/06/23 - 02/05/23 [facility] [employer] [address] [facility], [address] [place], [place] [address] Allergies, Adverse Reactions, Alerts Substance Reaction [...] 1Admin Note: [facility] 2Location History: halfway 3Result Comment: [06/04/2016] donna 4Result Comment: [04/08/2015] L&C 5Admin Note: DR. PASTOR, [place] Medications amLODIPine 10 mg oral tablet See Instructions, TAKE 1 TABLET BY MOUTH DAILY, # 90 each, 3 Refills, 09/24/21 10:21:00 EDT, [facility] #[id number], 168, cm, 09/24/21 10:10:00 EDT, Height Start Date: 09/24/21 Status: Ordered atorvastatin 20 mg oral tablet 1 tablet, By Mouth, Daily, # 90 tablet, 0 Refills, Maintenance, 11/23/22 8:41:00 EDT, [facility] #[id number], 168, cm, 10/30/22 16:18:00 EDT, Height Start Date: 11/23/22 Status: Ordered busPIRone 5 mg oral tablet [...] Refills, Soft Stop, 01/15/23 11:51:00 EDT, Tablet, [facility] #59455, Partial fill upon patient request ifthe prescription [...] day, # 1 each, 5 Refills, Maintenance, [place] Start Date: 03/15/13 Stop Date: 09/11/13 Status: Ordered furosemide 40 mg oral tablet 1, tablet, By Mouth, Daily, # 90 tablet, Refills 3, Tot. Refills 3, Maintenance, 06/10/22 10:40:00 EST, Route to Pharmacy Electronically, [facility] #[id number], 168, cm, 06/10/22 10:25:00 EST, Height Start Date: 06/10/22 Status: Ordered Imvexxy Maintenance Pack 10 mcg vaginal insert 1 insert, Vaginally, Every Wednesday and , # 8 supp, 5 Refills, Maintenance, 11/30/22 13:30:00EDT, [facility] #[id number], Partial fill upon patient request, 168, cm, 11/30/22 13:08:00 EDT, Height Start Date: 11/30/22 Status: Ordered ipratropium nasal 21 mcg/inh spray See Instructions, PRN Nasal Congestion, 1 spray each nostril BID, # 1 each, 4 Refills, Maintenance,01/01/22 16:02:00 EDT, [facility] #[id number], Partial fill upon patient request if the [...] tablet, Refills 3, Route to Pharmacy Electronically, [facility] #[id number], 168, cm, 03/27/21 14:00:00 EDT, Height, 94.4, [...] 3 Refills, Maintenance, 04/12/20 10:50:00 EDT, Tablet, [facility] #38836, 162.56, cm, 03/01/20 14:13:00 EDT, Height, 94.4, [...] each, 3 Refills, Maintenance, 02/04/22 10:46:00 EDT, [facility] #01227, 168, cm, 02/04/22 10:23:00 EDT, Height Start [...] days, # 14 capsule, 0 Refills, Acute 02/10/23 12:04:00 EDT, 02/03/23 12:04:00 EDT, Capsule, [facility] #00223, Partial fill upon patient request if the prescription is for a schedule II opio... Start Date: 02/03/23 Stop Date: 02/10/23 Status: Ordered Nystop 989101 u/gm powder 1 applicator, Topically, 2 times a day, for 30 days, # 60 Gm, 11 Refills, Acute 01/24/24 16:44:00 EDT, 01/29/23 16:44:00 EDT, Powder, [facility] #57557, Partial fill upon patient request ifthe prescription [...] 0 Refills, Maintenance, 10/30/19 13:41:00 EDT, Tablet, [facility] #14223, 162.56, cm, 08/17/19 16:32:00 EST, Height, 94.4, [...] Team Personnel Name: Marianne Perez RN [facility] RN Member Role: Primary Care Nurse Name: Debi Cisse MD Position: [facility] Physician - Primary Care Member Role: PCP Address: Address: [address] [place] [address] [place] [address]- Name: Viola Gonzalez Position[facility] Outreach Member Role: Lifetime Consulting Physician Care Team Related Persons Name: ITZEL GARCIA Name: AILYN ANDERSON Name: RAF NAVARRETE
--- OUTSIDE RECORDS SUMMARY | 2023-04-04 05:38 | XMS_ITS | Continuity of Care Document ---
Author Name Unknown Organization [facility] Address [address] [place] [address]- Care Team Providers Care Web Content Developer Name Role Phone Betito OSORIO, Debi Lizama Primary Care Physician [phone] Encounter [facility] Date(s): 11/27/22 - 12/27/22 [facility] [employer] [facility] [address] [place] [address] [place] Allergies, Adverse Reactions, Alerts Substance Reaction [...] Given 1Admin Note: [place] 2Location History: senior care 3Result Comment: [06/04/2016] donna 4Result Comment: [04/08/2015] L&C 5Admin Note: DR. PASTOR, [place] Medications amLODIPine 10 mg oral tablet See Instructions, TAKE 1 TABLET BY MOUTH DAILY, # 90 each, 3 Refills, 09/24/21 10:21:00 EDT, [facility] #[id number], 168, cm, 09/24/21 10:10:00 EDT, Height Start Date: 09/24/21 Status: Ordered atorvastatin 20 mg oral tablet 1 tablet, By Mouth, Daily, # 90 tablet, 0 Refills, Maintenance, 11/23/22 8:41:00 EDT, [facility] #48537, 168, cm, 10/30/22 16:18:00 EDT, Height Start [...] day, # 1 each, 5 Refills, Maintenance, [place] Start Date: 03/15/13 Stop Date: 09/11/13 Status: Ordered furosemide 40 mg oral tablet 1, tablet, By Mouth, Daily, # 90 tablet, Refills 3, Tot. Refills 3, Maintenance, 06/10/22 10:40:00 EST, Route to Pharmacy Electronically, [facility] #[id number], 168, cm, 06/10/22 10:25:00 EST, Height Start Date: 06/10/22 Status: Ordered Imvexxy Maintenance Pack 10 mcg vaginal insert 1 insert, Vaginally, Every Wednesday and , # 8 supp, 5 Refills, Maintenance, 11/30/22 13:30:00EDT, [facility] #55971, Partial fill upon patient request, 168, cm, 11/30/22 13:08:00 EDT, Height Start Date: 11/30/22 Status: Ordered ipratropium nasal 21 mcg/inh spray See Instructions, PRN Nasal Congestion, 1 spray each nostril BID, # 1 each, 4 Refills, Maintenance,01/01/22 16:02:00 EDT, [facility] #24508, Partial fill upon patient request if the [...] tablet, Refills 3, Route to Pharmacy Electronically, [facility] #[id number], 168, cm, 03/27/21 14:00:00 EDT, Height, 94.4, [...] 3 Refills, Maintenance, 04/12/20 10:50:00 EDT, Tablet, [facility] #26894, 162.56, cm, 03/01/20 14:13:00 EDT, Height, 94.4, [...] each, 3 Refills, Maintenance, 02/04/22 10:46:00 EDT, [facility] #64215, 168, cm, 02/04/22 10:23:00 EDT, Height Start [...] 0 Refills, Maintenance, 10/30/19 13:41:00 EDT, Tablet, [facility] #66615, 162.56, cm, 08/17/19 16:32:00 EST, Height, 94.4, [...] Team Personnel Name: Marianne Perez RN Position: [facility] RN Member Role: Primary Care Nurse Name: Debi Cisse MD Position: [facility] Physician - Primary Care Member Role: PCP Address: Address: [address] [place] [address] [place] [address]- Name: Viola Gonzalez Position: [facility] Outreach Member Role: Lifetime Consulting Physician Care Team Related Persons Name: ITZEL GARCIA Name: AILYN ANDERSON Name: RAF NAVARRETE
--- OUTSIDE RECORDS SUMMARY | 2023-04-04 05:38 | XMS_ITS | Continuity of Care Document ---
Author Name Unknown Organization [facility] [email or web address] Address [address] [place] [address]- Care Team Providers Care Oracle Bpm Developer Name Role Phone Betito OSORIO, Debi Lizama Primary Care Physician [phone] [id number] Date(s): 01/13/23 - 02/12/23 [email or web address] [address] [place] [place] [address]- [place] Allergies, Adverse Reactions, Alerts Substance Reaction [...] Vacc (oldterm) 5 08/12/09 Given 1Admin Note: [facility] 2Location History: senior care 3Result Comment: [06/04/2016] donna 4Result Comment: [04/08/2015] L&C 5Admin Note: DR. PASTOR, [place] Medications amLODIPine 10 mg oral tablet See Instructions, TAKE 1 TABLET BY MOUTH DAILY, # 90 each, 3 Refills, 09/24/21 10:21:00 EDT, [facility] #[id number], 168, cm, 09/24/21 10:10:00 EDT, Height Start Date: 09/24/21 Status: Ordered atorvastatin 20 mg oral tablet 1 tablet, By Mouth, Daily, # 90 tablet, 0 Refills, Maintenance, 11/23/22 8:41:00 EDT, [facility] #[id number], 168, cm, 10/30/22 16:18:00 EDT, Height Start [...] Refills, Soft Stop, 01/15/23 11:51:00 EDT, Tablet, [facility] #95341, Partial fill upon patient request ifthe prescription [...] # 1 each, 5 Refills, Maintenance, [place] Start Date: 03/15/13 Stop Date: 09/11/13 Status: Ordered furosemide 40 mg oral tablet 1, tablet, By Mouth, Daily, # 90 tablet, Refills 3, Tot. Refills 3, Maintenance, 06/10/22 10:40:00 EST, Route to Pharmacy Electronically, [facility] #[id number], 168, cm, 06/10/22 10:25:00 EST, Height Start Date: 06/10/22 Status: Ordered Imvexxy Maintenance Pack 10 mcg vaginal insert 1 insert, Vaginally, Every Wednesday and , # 8 supp, 5 Refills, Maintenance, 11/30/22 13:30:00EDT, [facility] #40525, Partial fill upon patient request, 168, cm, 11/30/22 13:08:00 EDT, Height Start Date: 11/30/22 Status: Ordered ipratropium nasal 21 mcg/inh spray See Instructions, PRN Nasal Congestion, 1 spray each nostril BID, # 1 each, 4 Refills, Maintenance,01/01/22 16:02:00 EDT, [facility] #[id number], Partial fill upon patient request if the [...] tablet, Refills 3, Route to Pharmacy Electronically, [facility] #[id number], 168, cm, 03/27/21 14:00:00 EDT, Height, 94.4, [...] 3 Refills, Maintenance, 04/12/20 10:50:00 EDT, Tablet, [facility] #87913, 162.56, cm, 03/01/20 14:13:00 EDT, Height, 94.4, [...] each, 3 Refills, Maintenance, 02/04/22 10:46:00 EDT, [facility] #[id number], 168, cm, 02/04/22 10:23:00 EDT, Height Start [...] 10:07:54 Start Date: 04/23/16 Status: Ordered Nystop 881003 u/gm powder 1 applicator, Topically, 2 times a day, for 30 days, # 60 Gm, 11 Refills, Acute 01/24/24 16:44:00 EDT, 01/29/23 16:44:00 EDT, Powder, [facility] #58623, Partial fill upon patient request ifthe prescription [...] 0 Refills, Maintenance, 10/30/19 13:41:00 EDT, Tablet, [facility] #60063, 162.56, cm, 08/17/19 16:32:00 EST, Height, 94.4, [...] Team Personnel Name: Marianne Perez RN Position: [facility] RN Member Role: Primary Care Nurse Name: Debi Cisse MD Position: [facility] Physician - Primary Care Member Role: PCP Address: Address: [address] [place] [address] Adult [place], [place] [address] Name: Viola Gonzalez Position: [facility] Outreach Member Role: Lifetime Consulting Physician Care Team Related Persons Name: ITZEL GARCIA Name: AILYN ANDERSON Name: RAF NAVARRETE
--- OUTSIDE RECORDS SUMMARY | 2023-04-04 05:38 | XMS_ITS | Continuity of Care Document ---
Author Name Unknown Organization [facility] [employer] Address [address] [facility], [address]t [place] [address]- Care Team Providers Care Cardio Tech Name Role Phone Betito OSORIO, Debi Lizama Primary Care Physician [phone] [id number] Date(s): 10/13/22 - 12/24/22 [facility] [employer] [facility] [address], 4th [address] [place], [place] [address] Attending Physician: Rina Saravia MD Kallie Allergies, [...] Given 1Admin Note: [facility] 2Location History: [facility] 3Result Comment: [06/04/2016] donna 4Result Comment: [04/08/2015] L&C 5Admin Note: DR. PASTOR, [place] Medications amLODIPine 10 mg oral tablet See Instructions, TAKE 1 TABLET BY MOUTH DAILY, # 90 each, 3 Refills, 09/24/21 10:21:00 EDT, [facility] #37353, 168, cm, 09/24/21 10:10:00 EDT, Height Start Date: 09/24/21 Status: Ordered atorvastatin 20 mg oral tablet 1 tablet, By Mouth, Daily, # 90 tablet, 0 Refills, Maintenance, 11/23/22 8:41:00 EDT, [facility] #32404, 168, cm, 10/30/22 16:18:00 EDT, Height Start [...] day, # 1 each, 5 Refills, Maintenance, [place] Start Date: 03/15/13 Stop Date: 09/11/13 Status: Ordered furosemide 40 mg oral tablet 1, tablet, By Mouth, Daily, # 90 tablet, Refills 3, Tot. Refills 3, Maintenance, 06/10/22 10:40:00 EST, Route to Pharmacy Electronically, [facility] #[id number], 168, cm, 06/10/22 10:25:00 EST, Height Start Date: 06/10/22 Status: Ordered Imvexxy Maintenance Pack 10 mcg vaginal insert 1 insert, Vaginally, Every Wednesday and , # 8 supp, 5 Refills, Maintenance, 11/30/22 13:30:00EDT, [facility] #81101, Partial fill upon patient request, 168, cm, 11/30/22 13:08:00 EDT, Height Start Date: 11/30/22 Status: Ordered ipratropium nasal 21 mcg/inh spray See Instructions, PRN Nasal Congestion, 1 spray each nostril BID, # 1 each, 4 Refills, Maintenance,01/01/22 16:02:00 EDT, [facility] #37273, Partial fill upon patient request if the [...] 0, Maintenance, use overnight and naps from [facility], 08/15/20 12:05:00 EST, Compound Start [...] tablet, Refills 3, Route to Pharmacy Electronically, [facility] #[id number], 168, cm, 03/27/21 14:00:00 EDT, Height, 94.4, [...] 3 Refills, Maintenance, 04/12/20 10:50:00 EDT, Tablet, [facility] #64125, 162.56, cm, 03/01/20 14:13:00 EDT, Height, 94.4, [...] each, 3 Refills, Maintenance, 02/04/22 10:46:00 EDT, [facility] #49936, 168, cm, 02/04/22 10:23:00 EDT, Height Start [...] 0 Refills, Maintenance, 10/30/19 13:41:00 EDT, Tablet, [facility] #40305, 162.56, cm, 08/17/19 16:32:00 EST, Height, 94.4, [...] Personnel Name: Marianne Perez RN Position: [facility] RN Member Role: Primary Care Nurse Name: Debi Cisse MD Position: [facility] Physician - Primary Care Member Role: PCP Address: Address: [address] [place] [address] Adult [place], [place] [address] Name: Viola Gonzalez Position: [facility] Outreach Member Role: Lifetime Consulting Physician Care Team Related Persons Name: ITZEL GARCIA Name: AILYN ANDERSON Name: RAF NAVARRETE
--- OUTSIDE RECORDS SUMMARY | 2023-04-04 05:38 | XMS_ITS | Continuity of Care Document ---
Author Name Unknown Organization [facility] Address [address] [place] [address]- Care Team Providers Care Field Support Engineer Name Role Phone Betito OSORIO, Debi Lizama Primary Care Physician En[facility] Date(s): 11/30/22 - [email or web address] [address] [address]- Attending Physician: Josy Morgan Admitting Physician: Josy [...] Vacc (oldterm) 5 08/12/09 Given 1Admin Note: [facility] 2Location History: fdc 3Result Comment: [06/04/2016] donna 4Result Comment: [04/08/2015] L&C 5Admin Note: DR. PASTOR, [place] Medications amLODIPine 10 mg oral tablet See Instructions, TAKE 1 TABLET BY MOUTH DAILY, # 90 each, 3 Refills, 09/24/21 10:21:00 EDT, [facility] #[id number], 168, cm, 09/24/21 10:10:00 EDT, Height Start Date: 09/24/21 Status: Ordered atorvastatin 20 mg oral tablet 1 tablet, By Mouth, Daily, # 90 tablet, 0 Refills, Maintenance, 11/23/22 8:41:00 EDT, [facility] #[id number], 168, cm, 10/30/22 16:18:00 EDT, Height Start [...] day, # 1 each, 5 Refills, Maintenance, [place] Start Date: 03/15/13 Stop Date: 09/11/13 Status: Ordered furosemide 40 mg oral tablet 1, tablet, By Mouth, Daily, # 90 tablet, Refills 3, Tot. Refills 3, Maintenance, 06/10/22 10:40:00 EST, Route to Pharmacy Electronically, [facility] #[id number], 168, cm, 06/10/22 10:25:00 EST, Height Start Date: 06/10/22 Status: Ordered Imvexxy Maintenance Pack 10 mcg vaginal insert 1 insert, Vaginally, Every Wednesday and , # 8 supp, 5 Refills, Maintenance, 11/30/22 13:30:00EDT, [facility] #[id number], Partial fill upon patient request, 168, cm, 11/30/22 13:08:00 EDT, Height Start Date: 11/30/22 Status: Ordered ipratropium nasal 21 mcg/inh spray See Instructions, PRN Nasal Congestion, 1 spray each nostril BID, # 1 each, 4 Refills, Maintenance,01/01/22 16:02:00 EDT, [facility] #59734, Partial fill upon patient request if the [...] 0, Maintenance, use overnight and naps from [facility], 08/15/20 12:05:00 EST, Compound Start Date: 08/15/20 [...] tablet, Refills 3, Route to Pharmacy Electronically, [facility] #[id number], 168, cm, 03/27/21 14:00:00 EDT, Height, 94.4, [...] 3 Refills, Maintenance, 04/12/20 10:50:00 EDT, Tablet, [facility] #[id number], 162.56, cm, 03/01/20 14:13:00 EDT, Height, 94.4, [...] each, 3 Refills, Maintenance, 02/04/22 10:46:00 EDT, [facility] #[id number], 168, cm, 02/04/22 10:23:00 EDT, Height Start [...] 0 Refills, Maintenance, 10/30/19 13:41:00 EDT, Tablet, [facility] #[id number], 162.56, cm, 08/17/19 16:32:00 EST, Height, 94.4, [...] Status Former smoker entered on: 10/04/14 [facility] Consult note * Event Display: Inpatient Consult Note, Non-BH Authored Date: * Event Display: Inpatient Consult Note, Non-BH Authored Date: * Event Display: Inpatient Consult Note, Non-BH Authored Date: Laboratory * Event Display: Non BH Lab Results Authored Date: * Event Display: Non BH Lab Results Authored Date: Patient Care team information Care Team Personnel Name: Marianne Perez RN Position: [facility] RN Member Role: Primary Care Nurse Name: Debi Cisse MD Position: [facility] Physician - Primary Care Member Role: PCP Address: Address: [address] [place] [address] Adult [place], [place] [address] Name: Viola Gonzalez Position: [facility] Outreach Member Role: Lifetime Consulting Physician Care Team Related Persons Name: ITZEL GARCIA Name: AILYN ANDERSON Name: RAF NAVARRETE
--- OUTSIDE RECORDS SUMMARY | 2023-04-04 05:39 | XMS_ITS | Continuity of Care Document ---
Author Name Unknown Organization [facility] Address [address] [place] [address]- Care Team Providers Care Blue Crabber Name Role Phone Betito OSORIO, Debi M Primary Care Physician Encounter [facility] Date(s): 02/12/23 - 03/14/23 [facility] [address] [place] [address]- [place] Allergies, Adverse Reactions, Alerts Substance Reaction [...] 5 08/12/09 Given 1Admin Note: [facility] 2Location History: fpc 3Result Comment: [06/04/2016] donna 4Result Comment: [04/08/2015] L&C 5Admin Note: DR. PASTOR, [place] Medications amLODIPine 10 mg oral tablet See Instructions, TAKE 1 TABLET BY MOUTH DAILY, # 90 each, 3 Refills, 09/24/21 10:21:00 EDT, [facility] #[id number], 168, cm, 09/24/21 10:10:00 EDT, Height Start Date: 09/24/21 Status: Ordered atorvastatin 20 mg oral tablet 1 tablet, By Mouth, Daily, # 90 tablet, 0 Refills, Maintenance, 02/19/23 15:21:00 EDT, [facility] #[id number], 168, cm, 01/15/23 10:41:00 EDT, Height Start [...] Refills, Soft Stop, 01/15/23 11:51:00 EDT, Tablet, [facility] #[id number], Partial fill upon patient request ifthe prescription [...] day, # 1 each, 5 Refills, Maintenance, [place] Start Date: 03/15/13 Stop Date: 09/11/13 Status: Ordered furosemide 40 mg oral tablet 1, tablet, By Mouth, Daily, # 90 tablet, Refills 3, Tot. Refills 3, Maintenance, 06/10/22 10:40:00 EST, Route to Pharmacy Electronically, [facility] #[id number], 168, cm, 06/10/22 10:25:00 EST, Height Start Date: 06/10/22 Status: Ordered Imvexxy Maintenance Pack 10 mcg vaginal insert 1 insert, Vaginally, Every Wednesday and , # 8 supp, 5 Refills, Maintenance, 11/30/22 13:30:00EDT, [facility] #05700, Partial fill upon patient request, 168, cm, 11/30/22 13:08:00 EDT, Height Start Date: 11/30/22 Status: Ordered ipratropium nasal 21 mcg/inh spray See Instructions, PRN Nasal Congestion, 1 spray each nostril BID, # 1 each, 4 Refills, Maintenance,01/01/22 16:02:00 EDT, [facility] #42913, Partial fill upon patient request if the [...] tablet, Refills 3, Route to Pharmacy Electronically, [facility] #[id number], 168, cm, 03/27/21 14:00:00 EDT, Height, 94.4, [...] 3 Refills, Maintenance, 04/12/20 10:50:00 EDT, Tablet, [facility] #[id number], 162.56, cm, 03/01/20 14:13:00 EDT, Height, 94.4, [...] tablet, 0 Refills, Maintenance, 02/19/23 15:48:00 EDT, [facility] #[id number], 168, cm, 01/15/23 10:41:00 EDT, Height Start [...] 10:07:54 Start Date: 04/23/16 Status: Ordered Nystop 762688 u/gm powder 1 applicator, Topically, 2 times a day, for 30 days, # 60 Gm, 11 Refills, Acute 01/24/24 16:44:00 EDT, 01/29/23 16:44:00 EDT, Powder, [facility] #24023, Partial fill upon patient request ifthe prescription [...] 0 Refills, Maintenance, 10/30/19 13:41:00 EDT, Tablet, [facility] #58898, 162.56, cm, 08/17/19 16:32:00 EST, Height, 94.4, [...] Team Personnel Name: Marianne Perez RN Position: [facility] RN Member Role: Primary Care Nurse Name: Debi Cisse MD Position: [facility] Physician - Primary Care Member Role: PCP Address: Address: [address] [place] [address] [place] [address]- Name: Viola Gonzalez Position: [facility] Outreach Member Role: Lifetime Consulting Physician Care Team Related Persons Name: ITZEL GARCIA Name: AILYN ANDERSON Name: RAF NAVARRETE
--- OUTSIDE RECORDS SUMMARY | 2023-04-04 05:39 | XMS_ITS | Continuity of Care Document ---
Author Name Unknown Organization [facility] Address [address] [place] [address]- Care Team Providers Care Business Process Expert Name Role Phone Debi Cisse MD Primary Care Physician [phone] [id number]/23/23 - 04/01/23 [facility] [address] [place] [address]- Attending Physician: Oralia NOWAK, Porsche Peoples Referring Physician: Debi Cisse MD Allergies, Adverse Reactions, Alerts Substance Reaction Severity Status Other Food Allergy 1 SWELLING OF MOUTH Crab Active phenobarbital Active sulfa drugs Active Vasotec ULCERS IN MOUTH Active Active Dust Dust allergy tongue swells Active Lobster BLOODY STOOLS Active Shrimp MOUTH SWELLED Active 1CRAB Immunizations Given and Recorded Vaccine Date Status Refusal Reason influenza virus vaccine, inactivated 03/05/22 Agustín rded influenza virus vaccine, inactivated 03/04/20 Agustín rded influenza virus vaccine, inactivated 02/12/19 Agustín rded influenza virus vaccine, inactivated 03/24/18 Agustín rded influenza virus vaccine, inactivated 03/14/18 Agustín rded influenza virus vaccine, inactivated 1 03/23/17 Re corded influenza virus vaccine, inactivated 2 02/27/16 Re corded influenza virus vaccine, inactivated 02/26/16 Agustín rded influenza virus vaccine, inactivated 3 02/22/15 Re corded SARS-CoV-2 mRNA ([id number]) vax 10/01/21 Recorded SARS-CoV-2 (COVID-19) mRNA BNT-162b2 vac 04/08/21 Recorded SARS-CoV-2 (COVID-19) mRNA BNT-162b2 vac 08/14/20 Recorded SARS-CoV-2 (COVID-19) mRNA BNT-162b2 vac 07/24/20 Recorded Influenza Virus Vaccine (oldterm) 02/26/21 Recorde d Influenza Virus Vaccine (oldterm) 02/13/20 Recorde d Influenza Virus Vaccine (oldterm) 4 03/14/14 Given tetanus/diphtheria/pertussis, acel(Tdap) 12/02/17 Recorded tetanus/diphtheria/pertussis, acel(Tdap) 01/29/11 Given Zoster Vaccine Live 11/23/16 Recorded pneumococcal 13-valent vaccine 11/23/16 Recorded pneumococcal 13-valent vaccine 10/04/14 Given FluLaval (oldterm) 06/24/12 Given Pneumococcal Vacc (oldterm) 5 08/12/09 Given 1Location History: alf 2Result Comment: [06/04/2016] donna 3Result Comment: [04/08/2015] L&C 4Admin Note: [facility] 5Admin Note: DR. PASTOR, [place] Medications amLODIPine 10 mg oral tablet See Instructions, TAKE 1 TABLET BY MOUTH DAILY, # 90 each, 3 Refills, 09/24/21 10:21:00 EDT, [facility] #[id number], 168, cm, 09/24/21 10:10:00 EDT, Height Start Date: 09/24/21 Status: Ordered atorvastatin 20 mg oral tablet 1 tablet, By Mouth, Daily, # 90 tablet, 0 Refills, Maintenance, 02/19/23 15:21:00 EDT, [facility] #69178, 168, cm, 01/15/23 10:41:00 EDT, Height Start Date: 02/19/23 Status: Ordered Baclofen By Mouth, 3 times a day, 0 Refills, Maintenance, 03/19/23 15:32:00 EDT, Partial fill upon patient request if the prescription is for a schedule II opioid drug. Start Date: 03/19/23 Status: Ordered busPIRone 5 mg oral tablet [...] Refills, Soft Stop, 01/15/23 11:51:00 EDT, Tablet, [facility] #[id number], Partial fill upon patient request ifthe prescription [...] day, # 1 each, 5 Refills, Maintenance, [place] Start Date: 03/15/13 Stop Date: 09/11/13 Status: Ordered furosemide 40 mg oral tablet 1, tablet, By Mouth, Daily, # 90 tablet, Refills 3, Tot. Refills 3, Maintenance, 06/10/22 10:40:00 EST, Route to Pharmacy Electronically, [facility] #[id number], 168, cm, 06/10/22 10:25:00 EST, Height Start Date: 06/10/22 Status: Ordered Imvexxy Maintenance Pack 10 mcg vaginal insert 1 insert, Vaginally, Every Wednesday and , # 8 supp, 5 Refills, Maintenance, 11/30/22 13:30:00EDT, [facility] #[id number], Partial fill upon patient request, 168, cm, 11/30/22 13:08:00 EDT, Height Start Date: 11/30/22 Status: Ordered ipratropium nasal 21 mcg/inh spray See Instructions, PRN Nasal Congestion, 1 spray each nostril BID, # 1 each, 4 Refills, Maintenance,01/01/22 16:02:00 EDT, [facility] #[id number], Partial fill upon patient request if the [...] use overnight and naps from [facility], 08/15/20 12:05:00 EST, Compound Start Date: 08/15/20 [...] tablet, Refills 3, Route to Pharmacy Electronically, [facility] #[id number], 168, cm, 03/27/21 14:00:00 EDT, Height, 94.4, [...] 3 Refills, Maintenance, 04/12/20 10:50:00 EDT, Tablet, [facility] #67715, 162.56, cm, 03/01/20 14:13:00 EDT, Height, 94.4, [...] tablet, 0 Refills, Maintenance, 02/19/23 15:48:00 EDT, [facility] #[id number], 168, cm, 01/15/23 10:41:00 EDT, Height Start Date: 02/19/23 Status: Ordered MiraLax Powder = 17 Gm, By Mouth, 2 times a day, 0 Refills, Maintenance, 05/26/10 15:29:33 EST Start Date: 05/26/10 Status: Ordered Multivitamin By Mouth, Daily, 0 Refills, Maintenance, 08/01/14 16:38:28 Start Date: 08/01/14 Status: Ordered Nasacort Allergy 24HR 2 sprays, Daily, 0 Refills, Maintenance, 04/23/16 10:07:54 Start Date: 04/23/16 Status: Ordered Nitrofurantoin By Mouth, Daily, Maintenance, 03/19/23 15:26:00 EDT Start Date: 03/19/23 Status: Ordered Nystop 619815 u/gm powder 1 applicator, Topically, 2 times a day, for 30 days, # 60 Gm, 11 Refills, Acute 01/24/24 16:44:00 EDT, 01/29/23 16:44:00 EDT, Powder, [facility] #69074, Partial fill upon patient request ifthe prescription [...] 0 Refills, Maintenance, 10/30/19 13:41:00 EDT, Tablet, [facility] #41336, 162.56, cm, 08/17/19 16:32:00 EST, Height, 94.4, [...] Team Personnel Name: Marianne Perez RN Position: [facility] RN Member Role: Primary Care Nurse Name: Debi Cisse MD Position: [facility] Physician - Primary Care Member Role: PCP Address: Address: [address] [place] [address] [place] [address]- Name: Viola Gonzalez Position: [facility] Outreach Member Role: Lifetime Consulting Physician Care Team Related Persons Name: ITZEL GARCIA Name: AILYN ANDERSON Name: RAF NAVARRETE
--- OUTSIDE RECORDS SUMMARY | 2023-04-04 05:39 | XMS_ITS | Continuity of Care Document ---
Author Name Unknown Organization [facility] Address [address] [place] [address]- Care Team Providers Care Credit Authorizer Name Role Phone Betito OSORIO, Debi M Primary Care Physician [phone] Encounter [facility] Date(s): 02/03/23 - 03/05/23 [facility] [address] [place] [address] [place] Allergies, Adverse Reactions, Alerts Substance Reaction Severity Status sulfa drugs Active Active Vasotec ULCERS IN MOUTH Active Other Food Allergy 1 SWELLING OF MOUTH Crab Active phenobarbital Active Dust Dust allergy tongue swells Active [...] Agustín rded influenza virus vaccine, inactivated 03/14/18 Agutsín rded influenza virus vaccine, inactivated 2 03/23/17 Re corded influenza virus vaccine, inactivated 3 02/27/16 Re corded influenza virus vaccine, inactivated 02/26/16 Agustín rded influenza virus vaccine, inactivated 4 02/22/15 Re corded pneumococcal 13-valent vaccine 10/04/14 Given FluLaval (oldterm) 06/24/12 Given tetanus/diphtheria/pertussis, acel(Tdap) 01/29/11 Given Pneumococcal Vacc (oldterm) 5 08/12/09 Given 1Admin Note: [facility] 2Location History: snf 3Result Comment: [06/04/2016] donna 4Result Comment: [04/08/2015] L&C 5Admin Note: DR. PASTOR, [place] Medications amLODIPine 10 mg oral tablet See Instructions, TAKE 1 TABLET BY MOUTH DAILY, # 90 each, 3 Refills, 09/24/21 10:21:00 EDT, [facility] #[id number], 168, cm, 09/24/21 10:10:00 EDT, [place] Start Date: 09/24/21 Status: Ordered atorvastatin 20 mg oral tablet 1 tablet, By Mouth, Daily, # 90 tablet, 0 Refills, Maintenance, 02/19/23 15:21:00 EDT, [facility] #[id number], 168, cm, 01/15/23 10:41:00 EDT, Height Start [...] Refills, Soft Stop, 01/15/23 11:51:00 EDT, Tablet, [facility] #[id number], Partial fill upon patient request ifthe prescription [...] day, # 1 each, 5 Refills, Maintenance, [place] Start Date: 03/15/13 Stop Date: 09/11/13 Status: Ordered furosemide 40 mg oral tablet 1, tablet, By Mouth, Daily, # 90 tablet, Refills 3, Tot. Refills 3, Maintenance, 06/10/22 10:40:00 EST, Route to Pharmacy Electronically, [facility] #[id number], 168, cm, 06/10/22 10:25:00 EST, Height Start Date: 06/10/22 Status: Ordered Imvexxy Maintenance Pack 10 mcg vaginal insert 1 insert, Vaginally, Every Wednesday and , # 8 supp, 5 Refills, Maintenance, 11/30/22 13:30:00EDT, [facility] #[id number], Partial fill upon patient request, 168, cm, 11/30/22 13:08:00 EDT, Height Start Date: 11/30/22 Status: Ordered ipratropium nasal 21 mcg/inh spray See Instructions, PRN Nasal Congestion, 1 spray each nostril BID, # 1 each, 4 Refills, Maintenance,01/01/22 16:02:00 EDT, [facility] #[id number], Partial fill upon patient request if the [...] tablet, Refills 3, Route to Pharmacy Electronically, [facility] #[id number], 168, cm, 03/27/21 14:00:00 EDT, Height, 94.4, [...] 3 Refills, Maintenance, 04/12/20 10:50:00 EDT, Tablet, [facility] #[id number], 162.56, cm, 03/01/20 14:13:00 EDT, Height, 94.4, [...] tablet, 0 Refills, Maintenance, 02/19/23 15:48:00 EDT, [facility] #[id number], 168, cm, 01/15/23 10:41:00 EDT, Height Start [...] 10:07:54 Start Date: 04/23/16 Status: Ordered Nystop 781605 u/gm powder 1 applicator, Topically, 2 times a day, for 30 days, # 60 Gm, 11 Refills, Acute 01/24/24 16:44:00 EDT, 01/29/23 16:44:00 EDT, Powder, [facility] #[id number], Partial fill upon patient request ifthe prescription [...] 0 Refills, Maintenance, 10/30/19 13:41:00 EDT, Tablet, [facility] #[id number], 162.56, cm, 08/17/19 16:32:00 EST, Height, 94.4, [...] Team Personnel Name: Marianne Perez RN Position: [facility] RN Member Role: Primary Care Nurse Name: Debi Cisse MD Position: [facility] Physician - Primary Care Member Role: PCP Address: Address: [address] [place] [address] [place] [address]- Name: Viola Gonzalez Position: [facility] Outreach Member Role: Lifetime Consulting Physician Care Team Related Persons Name: ITZEL GARCIA Name: AILYN ANDERSON Name: RAF NAVARRETE
--- OUTSIDE RECORDS SUMMARY | 2023-04-04 05:39 | XMS_ITS | Continuity of Care Document ---
Author Name Unknown Organization [facility] Address [address] [place] [address]- Care Team Providers Care Senior Packaging Engineer Name Role Phone Betito OSORIO, Debi Lizama Primary Care Physician Encounter [facility] Date(s): 11/27/22 - 12/27/22 [facility] [address] [place] [address] [place] Allergies, Adverse Reactions, Alerts Substance Reaction [...] Given 1Admin Note: [place] 2Location History: fdc 3Result Comment: [06/04/2016] donna 4Result Comment: [04/08/2015] L&C 5Admin Note: DR. PASTOR, [place] Medications amLODIPine 10 mg oral tablet See Instructions, TAKE 1 TABLET BY MOUTH DAILY, # 90 each, 3 Refills, 09/24/21 10:21:00 EDT, [facility] #[id number], 168, cm, 09/24/21 10:10:00 EDT, Height Start Date: 09/24/21 Status: Ordered atorvastatin 20 mg oral tablet 1 tablet, By Mouth, Daily, # 90 tablet, 0 Refills, Maintenance, 11/23/22 8:41:00 EDT, [facility] #[id number], 168, cm, 10/30/22 16:18:00 EDT, Height Start [...] day, # 1 each, 5 Refills, Maintenance, [place] Start Date: 03/15/13 Stop Date: 09/11/13 Status: Ordered furosemide 40 mg oral tablet 1, tablet, By Mouth, Daily, # 90 tablet, Refills 3, Tot. Refills 3, Maintenance, 06/10/22 10:40:00 EST, Route to Pharmacy Electronically, [facility] #[id number], 168, cm, 06/10/22 10:25:00 EST, Height Start Date: 06/10/22 Status: Ordered Imvexxy Maintenance Pack 10 mcg vaginal insert 1 insert, Vaginally, Every Wednesday and , # 8 supp, 5 Refills, Maintenance, 11/30/22 13:30:00EDT, [facility] #[id number], Partial fill upon patient request, 168, cm, 11/30/22 13:08:00 EDT, Height Start Date: 11/30/22 Status: Ordered ipratropium nasal 21 mcg/inh spray See Instructions, PRN Nasal Congestion, 1 spray each nostril BID, # 1 each, 4 Refills, Maintenance,01/01/22 16:02:00 EDT, [facility] #[id number], Partial fill upon patient request if the [...] use overnight and naps from [facility], 08/15/20 12:05:00 EST, Compound Start Date: 08/15/20 [...] tablet, Refills 3, Route to Pharmacy Electronically, [facility] #[id number], 168, cm, 03/27/21 14:00:00 EDT, Height, 94.4, [...] 3 Refills, Maintenance, 04/12/20 10:50:00 EDT, Tablet, [facility] #[id number], 162.56, cm, 03/01/20 14:13:00 EDT, Height, 94.4, [...] each, 3 Refills, Maintenance, 02/04/22 10:46:00 EDT, [facility] #[id number], 168, cm, 02/04/22 10:23:00 EDT, Height Start [...] 0 Refills, Maintenance, 10/30/19 13:41:00 EDT, Tablet, [facility] #[id number], 162.56, cm, 08/17/19 16:32:00 EST, Height, 94.4, [...] Name: Marianne Perez RN Position: [facility] RN Member Role: Primary Care Nurse Name: Debi Cisse MD Position: [facility] Physician - Primary Care Member Role: PCP Address: Address: [address] [place] [address] [place] [address]- Name: Viola Gonzalez Position: [facility] Outreach Member Role: Lifetime Consulting Physician Care Team Related Persons Name: ITZEL GARCIA Name: AILYN ANDERSON Name: RAF NAVARRETE
--- OUTSIDE RECORDS SUMMARY | 2023-04-04 05:39 | XMS_ITS | Continuity of Care Document ---
Author Name Unknown Organization [facility] Bandanajeannine Campbell [employer] [facility] Address [address], [address] [place] [address]- Care Team Providers Care Head Resident Name Role Phone Betito OSORIO, Debi Lizama Primary Care Physician [place] [facility]/16/23 - 03/18/23 [facility] [employer] [facility] [address] [place], [place] [address] Attending Physician: Admtr, [id number] Admitting Physician: Admtr, [id number] Referring Physician: Admtr, [...] Vacc (oldterm) 5 08/12/09 Given 1Admin Note: [facility] 2Location History: assisted 3Result Comment: [06/04/2016] donna 4Result Comment: [04/08/2015] L&C 5Admin Note: DR. PASTOR, [place] Medications amLODIPine 10 mg oral tablet See Instructions, TAKE 1 TABLET BY MOUTH DAILY, # 90 each, 3 Refills, 09/24/21 10:21:00 EDT, [facility] #[id number], 168, cm, 09/24/21 10:10:00 EDT, Height Start Date: 09/24/21 Status: Ordered atorvastatin 20 mg oral tablet 1 tablet, By Mouth, Daily, # 90 tablet, 0 Refills, Maintenance, 02/19/23 15:21:00 EDT, [facility] #[id number], 168, cm, 01/15/23 10:41:00 EDT, Height Start [...] Refills, Soft Stop, 01/15/23 11:51:00 EDT, Tablet, [facility] #01937, Partial fill upon patient request ifthe prescription [...] day, # 1 each, 5 Refills, Maintenance, [place] Start Date: 03/15/13 Stop Date: 09/11/13 Status: Ordered furosemide 40 mg oral tablet 1, tablet, By Mouth, Daily, # 90 tablet, Refills 3, Tot. Refills 3, Maintenance, 06/10/22 10:40:00 EST, Route to Pharmacy Electronically, [facility] #[id number], 168, cm, 06/10/22 10:25:00 EST, Height Start Date: 06/10/22 Status: Ordered Imvexxy Maintenance Pack 10 mcg vaginal insert 1 insert, Vaginally, Every Wednesday and , # 8 supp, 5 Refills, Maintenance, 11/30/22 13:30:00EDT, [facility] #07460, Partial fill upon patient request, 168, cm, 11/30/22 13:08:00 EDT, Height Start Date: 11/30/22 Status: Ordered ipratropium nasal 21 mcg/inh spray See Instructions, PRN Nasal Congestion, 1 spray each nostril BID, # 1 each, 4 Refills, Maintenance,01/01/22 16:02:00 EDT, [facility] #27011, Partial fill upon patient request if the [...] tablet, Refills 3, Route to Pharmacy Electronically, [facility] #04427, 168, cm, 03/27/21 14:00:00 EDT, Height, 94.4, [...] 3 Refills, Maintenance, 04/12/20 10:50:00 EDT, Tablet, [facility] #27566, 162.56, cm, 03/01/20 14:13:00 EDT, Height, 94.4, [...] tablet, 0 Refills, Maintenance, 02/19/23 15:48:00 EDT, [facility] #56116, 168, cm, 01/15/23 10:41:00 EDT, Height Start [...] 10:07:54 Start Date: 04/23/16 Status: Ordered Nystop 789892 u/gm powder 1 applicator, Topically, 2 times a day, for 30 days, # 60 Gm, 11 Refills, Acute 01/24/24 16:44:00 EDT, 01/29/23 16:44:00 EDT, Powder, [facility] #40258, Partial fill upon patient request ifthe prescription [...] 0 Refills, Maintenance, 10/30/19 13:41:00 EDT, Tablet, [facility] #61838, 162.56, cm, 08/17/19 16:32:00 EST, Height, 94.4, [...] Team Personnel Name: Marianne Perez RN Position: [facility] RN Member Role: Primary Care Nurse Name: Debi Cisse MD Position: [facility] Physician - Primary Care Member Role: PCP Address: Address: [address] [place] [address] Adult [place], [place] [address] Name: Viola Gonzalez Position: [facility] Outreach Member Role: Lifetime Consulting Physician Care Team Related Persons Name: ITZEL GARCIA Name: AILYN ANDERSON Name: RAF NAVARRETE
[2023-04-04 05:40] LABS: Alanine Aminotransferase 32 U/L (0-31); Albumin Level 4.6 g/dL (3.5-5.0); Alkaline Phosphatase 58 U/L (39-117); Anion Gap 19 (12-20); Aspartate Amino Transferase 34 U/L (5-31); Bilirubin Total 0.4 mg/dL (0.0-1.0); Blood Urea Nitrogen 24 mg/dL (9-16); Calcium 9.8 mg/dL (8.4-10.2); Carbon Dioxide 24 mmol/L (22-29); Chloride 98 mmol/L (96-108); Creatinine Clr Calc Pharmacy 60.8; Estimated Glomerular Filt Rate > 60; Glucose Random 101 mg/dL (60-115); Magnesium 2.3 mg/dL (1.6-2.6); Potassium 4.6 mmol/L (3.3-5.1); Sodium 136 mmol/L (135-145); Troponin-I High Sensitivity 4.7 ng/L (<3.5-17.0)
--- OUTSIDE RECORDS SUMMARY | 2023-04-04 05:40 | XMS_ITS | Continuity of Care Document ---
Author Name Unknown Organization [facility] Address [address] [place] [address]- Care Team Providers Care Caramel Candy Maker Helper Name Role Phone Debi Cisse MD Primary Care Physician [id number] Date(s): 03/19/23 - 03/26/23 [facility] [address] [place] [address]- Attending Physician: Oralia NOWAK, Porsche Peoples Referring [...] inactivated 3 02/22/15 Re corded SARS-CoV-2 mRNA ([id number]) vax 10/01/21 Recorded SARS-CoV-2 (COVID-19) mRNA BNT-162b2 [...] Vacc (oldterm) 5 08/12/09 Given 1Location History: long term 2Result Comment: [06/04/2016] donna 3Result Comment: [04/08/2015] L&C 4Admin Note: [facility] 5Admin Note: DR. PASTOR, [place] Medications amLODIPine 10 mg oral tablet See Instructions, TAKE 1 TABLET BY MOUTH DAILY, # 90 each, 3 Refills, 09/24/21 10:21:00 EDT, [facility] #[id number], 168, cm, 09/24/21 10:10:00 EDT, Height Start Date: 09/24/21 Status: Ordered atorvastatin 20 mg oral tablet 1 tablet, By Mouth, Daily, # 90 tablet, 0 Refills, Maintenance, 02/19/23 15:21:00 EDT, [facility] #01039, 168, cm, 01/15/23 10:41:00 EDT, Height Start [...] Refills, Soft Stop, 01/15/23 11:51:00 EDT, Tablet, [facility] #[id number], Partial fill upon patient request ifthe prescription [...] day, # 1 each, 5 Refills, Maintenance, [place] Start Date: 03/15/13 Stop Date: 09/11/13 Status: Ordered furosemide 40 mg oral tablet 1, tablet, By Mouth, Daily, # 90 tablet, Refills 3, Tot. Refills 3, Maintenance, 06/10/22 10:40:00 EST, Route to Pharmacy Electronically, [facility] #61617, 168, cm, 06/10/22 10:25:00 EST, Height Start Date: 06/10/22 Status: Ordered Imvexxy Maintenance Pack 10 mcg vaginal insert 1 insert, Vaginally, Every Wednesday and , # 8 supp, 5 Refills, Maintenance, 11/30/22 13:30:00EDT, [facility] #67702, Partial fill upon patient request, 168, cm, 11/30/22 13:08:00 EDT, Height Start Date: 11/30/22 Status: Ordered ipratropium nasal 21 mcg/inh spray See Instructions, PRN Nasal Congestion, 1 spray each nostril BID, # 1 each, 4 Refills, Maintenance,01/01/22 16:02:00 EDT, [facility] #29412, Partial fill upon patient request if the [...] use overnight and naps from [facility], 08/15/20 12:05:00 EST, Compound Start Date: [...] tablet, Refills 3, Route to Pharmacy Electronically, [facility] #[id number], 168, cm, 03/27/21 14:00:00 EDT, Height, 94.4, [...] 3 Refills, Maintenance, 04/12/20 10:50:00 EDT, Tablet, [facility] #26893, 162.56, cm, 03/01/20 14:13:00 EDT, Height, 94.4, [...] tablet, 0 Refills, Maintenance, 02/19/23 15:48:00 EDT, [facility] #[id number], 168, cm, 01/15/23 10:41:00 EDT, Height Start [...] EDT Start Date: 03/19/23 Status: Ordered Nystop 309519 u/gm powder 1 applicator, Topically, 2 times a day, for 30 days, # 60 Gm, 11 Refills, Acute 01/24/24 16:44:00 EDT, 01/29/23 16:44:00 EDT, Powder, [facility] #22020, Partial fill upon patient request ifthe prescription [...] 0 Refills, Maintenance, 10/30/19 13:41:00 EDT, Tablet, [facility] #04279, 162.56, cm, 08/17/19 16:32:00 EST, Height, 94.4, [...] to oldest [Reference Range]: 1 2 Height 168 cm (03/19/23 3:47 PM) 168 cm (03/19/23 3:27 PM) Oxygen Saturation [94-100 %] 95 % (03/19/23 3:27 PM) Pulse Rate [55-90 bpm] 74 bpm (03/19/23 3:27 PM) Blood Pressure [90-138/55-84 mm Hg] 138/ 62mm Hg (03/19/23 3:47 PM) 150/70mm Hg *H* (03/19/23 3:27 PM) Respiratory Rate [16-30 br/min] 15 br/mi n *L* (03/19/23 3:27 PM) Mode of Delivery (Oxygen) Room air (03/19/23 3:27 PM) Blood pressure sites Arm, right (03/19/23 3:27 PM) Social History Social History Type Response Smoking Status Former smoker entered on: 10/04/14 Sex Note * Nanci Lucia: PERFORM, SIGN, VERIFY Event Display: Patient Education/Instruction Authored Date: [id number] [facility] *BMP [facility]tn Clinical Summary Name RAF BRONSON Age 77 Years 1945 PCP Debi Cisse MD PCP Visit Date 03/19/2023 15:17:00 Additional Instructions: Scheduled Appointments?? Future Appointments ?*BMP??[facility]Med??Bltn ?[address]??[place],??[place],??[address] ?Phone:??--?Fax:??-- ?Appt. Date:??04/28/2023?1:15 PM ?Scheduled Provider:??Debi Cisse MD Follow-Up Instructions ?? Diagnosis Medications: Please [...] twice a day. Refills: 0. Next Dose: Atorvastatin (atorvastatin 20 mg oral tablet) 1 tab(s) Oral Daily. Refills: 0. Next Dose: Baclofen Oral 3 times a day. Next Dose: BusPIRone (busPIRone 5 mg oral [...] Next Dose: Escitalopram Oral Daily. Next Dose: Estradiol Topical (Imvexxy Maintenance Pack 10 mcg vaginal insert) 1 insert Vaginally every Wednesday and . Refills: 5. Next Dose: Fluconazole (Diflucan 150 mg oral tablet) 1 tab(s) Oral once. May repeat in 72 hours as needed. Refills: 0. Next Dose: Fluticasone Nasal (fluticasone [...] Methenamine (methenamine hippurate 1 gm oral tablet) 1 tab(s) Oral twice a day. Refills: 0. Next Dose: Miscellaneous Rx (cranberry pills) Next Dose: Miscellaneous Rx (L foot brace) L foot brace dx: L foot drop. Refills: 0. Next Dose: Miscellaneous Rx (omeprazole 20mg) Oral Daily. Next Dose: Multivitamin Oral Daily. Next Dose: Nitrofurantoin Oral Daily. Next Dose: Nystatin Topical (Nystop 887296 u/gm powder) 1 applicator Topically twice a day for 30 Days. Refills: 11. Next Dose: Polyethylene Glycol 3350 (MiraLax Powder) [...] Pressure 138 mm Hg/62 mm Hg Temperature Pulse Rate 74 bpm Respiratory Rate 15 br/min 02 Sat Mode of Delivery 95 %/Room air You can now view a summary of your hospital visit from the comfort of your home through a free online portal called [employer]. [employer] is a website that allows you to securely view your medical information including discharge summary, medications and follow-up visits. ??You can alsosend a secure electronic message to your doctor???s office to request appointments, renew medications or just ask a question. You can enroll at [email or web address] or register during your next office [...] provider, you may find a [facility] provider by calling [facility] [employer] Link at [phone]. [facility], in keeping with [facility] guidance, no longer requires face masks for staff, patientsor visitors in most situations. Similar to time spent indoors at other locations, there is the chance that you were exposed to respiratory viruses during your time with us (such as flu or COVID-19).? If you develop symptoms concerning for a viral respiratory infection, please seek testing (and treatment if indicated) from your medical provider or home test kit. For information about the plan of care [...] Team Personnel Name: Marianne Perez RN Position: [facility] RN Member Role: Primary Care Nurse Name: Debi Cisse MD Position: [facility] Physician - Primary Care Member Role: PCP Address: Address: [address] [place] [address]- Name: Viola Gonzalez Position: [facility] Outreach Member Role: Lifetime Consulting Physician Care Team Related Persons Name: ITZEL GARCIA Name: AILYN ANDERSON Name: RAF NAVARRETE
--- OUTSIDE RECORDS SUMMARY | 2023-04-04 05:40 | XMS_ITS | Continuity of Care Document ---
Author Name Unknown Organization [facility] Address [address] [place] [address]- Care Team Providers Care Culturist Name Role Phone Betito OSORIO, Debi Lizama Primary Care Physician Encounter [facility] Date(s): 12/02/22 - 01/01/23 [facility] [address] [place] [address] [place] Allergies, Adverse Reactions, Alerts Substance Reaction [...] Vacc (oldterm) 5 08/12/09 Given 1Admin Note: [facility] 2Location History: care home 3Result Comment: [06/04/2016] donna 4Result Comment: [04/08/2015] L&C 5Admin Note: DR. PASTOR, [place] Medications amLODIPine 10 mg oral tablet See Instructions, TAKE 1 TABLET BY MOUTH DAILY, # 90 each, 3 Refills, 09/24/21 10:21:00 EDT, [facility] #[id number], 168, cm, 09/24/21 10:10:00 EDT, Height Start Date: 09/24/21 Status: Ordered atorvastatin 20 mg oral tablet 1 tablet, By Mouth, Daily, # 90 tablet, 0 Refills, Maintenance, 11/23/22 8:41:00 EDT, [facility] #[id number], 168, cm, 10/30/22 16:18:00 EDT, Height Start [...] day, # 1 each, 5 Refills, Maintenance, [place] Start Date: 03/15/13 Stop Date: 09/11/13 Status: Ordered furosemide 40 mg oral tablet 1, tablet, By Mouth, Daily, # 90 tablet, Refills 3, Tot. Refills 3, Maintenance, 06/10/22 10:40:00 EST, Route to Pharmacy Electronically, [facility] #[id number], 168, cm, 06/10/22 10:25:00 EST, Height Start Date: 06/10/22 Status: Ordered Imvexxy Maintenance Pack 10 mcg vaginal insert 1 insert, Vaginally, Every Wednesday and , # 8 supp, 5 Refills, Maintenance, 11/30/22 13:30:00EDT, [facility] #[id number], Partial fill upon patient request, 168, cm, 11/30/22 13:08:00 EDT, Height Start Date: 11/30/22 Status: Ordered ipratropium nasal 21 mcg/inh spray See Instructions, PRN Nasal Congestion, 1 spray each nostril BID, # 1 each, 4 Refills, Maintenance,01/01/22 16:02:00 EDT, [facility] #35924, Partial fill upon patient request if the [...] 0, Maintenance, use overnight and naps from [facility], 08/15/20 12:05:00 EST, [place] Start Date: [...] tablet, Refills 3, Route to Pharmacy Electronically, [facility] #[id number], 168, cm, 03/27/21 14:00:00 EDT, Height, 94.4, [...] 3 Refills, Maintenance, 04/12/20 10:50:00 EDT, Tablet, [facility] #55478, 162.56, cm, 03/01/20 14:13:00 EDT, Height, 94.4, [...] each, 3 Refills, Maintenance, 02/04/22 10:46:00 EDT, [facility] #07195, 168, cm, 02/04/22 10:23:00 EDT, Height Start [...] 0 Refills, Maintenance, 10/30/19 13:41:00 EDT, Tablet, [facility] #34059, 162.56, cm, 08/17/19 16:32:00 EST, Height, 94.4, [...] Team Personnel Name: Marianne Perez RN Position: [facility] RN Member Role: Primary Care Nurse Name: Debi Cisse MD Position: [facility] Physician - Primary Care Member Role: PCP Address: Address: [address] [place] [address] Adult [place], [place] [address] Name: Viola Gonzalez Position: [facility] Outreach Member Role: Lifetime Consulting Physician Care Team Related Persons Name: ITZEL GARCIA Name: AILYN ANDERSON Name: RAF NAVARRETE
--- OUTSIDE RECORDS SUMMARY | 2023-04-04 05:41 | XMS_ITS | Continuity of Care Document ---
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 PASTOR, [place] Medications amLODIPine 10 mg oral tablet See Instructions, TAKE 1 TABLET BY MOUTH DAILY, # 90 each, 3 Refills, 09/24/21 10:21:00 EDT, [facility] #[id number], 168, cm, 09/24/21 10:10:00 EDT, Height Start Date: 09/24/21 Status: Ordered atorvastatin 20 mg oral tablet 1 tablet, By Mouth, Daily, # 90 tablet, 0 Refills, Maintenance, 02/19/23 15:21:00 EDT, [facility] #31015, 168, cm, 01/15/23 10:41:00 EDT, Height Start [...] Refills, Soft Stop, 01/15/23 11:51:00 EDT, Tablet, [facility] #83542, Partial fill upon patient request ifthe prescription [...] day, # 1 each, 5 Refills, Maintenance, [place] Start Date: 03/15/13 Stop Date: 09/11/13 Status: Ordered furosemide 40 mg oral tablet 1, tablet, By Mouth, Daily, # 90 tablet, Refills 3, Tot. Refills 3, Maintenance, 06/10/22 10:40:00 EST, Route to Pharmacy Electronically, [facility] #[id number], 168, cm, 06/10/22 10:25:00 EST, Height Start Date: 06/10/22 Status: Ordered Imvexxy Maintenance Pack 10 mcg vaginal insert 1 insert, Vaginally, Every Wednesday and , # 8 supp, 5 Refills, Maintenance, 11/30/22 13:30:00EDT, [facility] #[id number], Partial fill upon patient request, 168, cm, 11/30/22 13:08:00 EDT, Height Start Date: 11/30/22 Status: Ordered ipratropium nasal 21 mcg/inh spray See Instructions, PRN Nasal Congestion, 1 spray each nostril BID, # 1 each, 4 Refills, Maintenance,01/01/22 16:02:00 EDT, [facility] #29455, Partial fill upon patient request if the [...] Maintenance, use overnight and naps from [facility], 08/15/20 12:05:00 EST, Compound Start [...] tablet, Refills 3, Route to Pharmacy Electronically, [facility] #[id number], 168, cm, 03/27/21 14:00:00 EDT, Height, 94.4, [...] 3 Refills, Maintenance, 04/12/20 10:50:00 EDT, Tablet, [facility] #78805, 162.56, cm, 03/01/20 14:13:00 EDT, Height, 94.4, [...] tablet, 0 Refills, Maintenance, 02/19/23 15:48:00 EDT, [facility] #87072, 168, cm, 01/15/23 10:41:00 EDT, Height Start [...] EDT Start Date: 03/19/23 Status: Ordered Nystop 357707 u/gm powder 1 applicator, Topically, 2 times a day, for 30 days, # 60 Gm, 11 Refills, Acute 01/24/24 16:44:00 EDT, 01/29/23 16:44:00 EDT, Powder, [facility] #[id number], Partial fill upon patient request ifthe prescription [...] 0 Refills, Maintenance, 10/30/19 13:41:00 EDT, Tablet, [facility] #22870, 162.56, cm, 08/17/19 16:32:00 EST, Height, 94.4, [...] Team Personnel Name: Marianne Perez RN Position: [facility] RN Member Role: Primary Care Nurse Name: Debi Cisse MD Position: [facility] Physician - Primary Care Member Role: PCP Address: Address: [address] [facility] [place] [address]- Name: Viola Gonzalez Position: [facility] Outreach Member Role: Lifetime Consulting Physician Care Team Related Persons Name: ITZEL GARCIA Name: AILYN ANDERSON Name: RAF NAVARRETE
--- OUTSIDE RECORDS SUMMARY | 2023-04-04 05:41 | XMS_ITS | Continuity of Care Document ---
Author Name Unknown Organization [facility] Address [address] [place] [address]- Care Team Providers Care Wire Frame Lamp Shade Maker Name Role Phone Betito OSORIO, Debi Lizama Primary Care Physician En[facility] Date(s): 12/08/22 - 01/07/23 [facility] [address] [place] [address] [place] Allergies, Adverse Reactions, Alerts Substance Reaction [...] Vacc (oldterm) 5 08/12/09 Given 1Admin Note: [facility] 2Location History: nursing home 3Result Comment: [06/04/2016] donna 4Result Comment: [04/08/2015] L&C 5Admin Note: DR. PASTOR, [place] Medications amLODIPine 10 mg oral tablet See Instructions, TAKE 1 TABLET BY MOUTH DAILY, # 90 each, 3 Refills, 09/24/21 10:21:00 EDT, [facility] #[id number], 168, cm, 09/24/21 10:10:00 EDT, Height Start Date: 09/24/21 Status: Ordered atorvastatin 20 mg oral tablet 1 tablet, By Mouth, Daily, # 90 tablet, 0 Refills, Maintenance, 11/23/22 8:41:00 EDT, [facility] #86898, 168, cm, 10/30/22 16:18:00 EDT, Height Start [...] day, # 1 each, 5 Refills, Maintenance, [place] Start Date: 03/15/13 Stop Date: 09/11/13 Status: Ordered furosemide 40 mg oral tablet 1, tablet, By Mouth, Daily, # 90 tablet, Refills 3, Tot. Refills 3, Maintenance, 06/10/22 10:40:00 EST, Route to Pharmacy Electronically, [facility] #33245, 168, cm, 06/10/22 10:25:00 EST, Height Start Date: 06/10/22 Status: Ordered Imvexxy Maintenance Pack 10 mcg vaginal insert 1 insert, Vaginally, Every Wednesday and , # 8 supp, 5 Refills, Maintenance, 11/30/22 13:30:00EDT, [facility] #69379, Partial fill upon patient request, 168, cm, 11/30/22 13:08:00 EDT, Height Start Date: 11/30/22 Status: Ordered ipratropium nasal 21 mcg/inh spray See Instructions, PRN Nasal Congestion, 1 spray each nostril BID, # 1 each, 4 Refills, Maintenance,01/01/22 16:02:00 EDT, [facility] #90948, Partial fill upon patient request if the [...] Maintenance, use overnight and naps from [facility], 08/15/20 12:05:00 EST, Compound Start Date: [...] tablet, Refills 3, Route to Pharmacy Electronically, [facility] #[id number], 168, cm, 03/27/21 14:00:00 EDT, Height, 94.4, [...] 3 Refills, Maintenance, 04/12/20 10:50:00 EDT, Tablet, [facility] #93113, 162.56, cm, 03/01/20 14:13:00 EDT, Height, 94.4, [...] each, 3 Refills, Maintenance, 02/04/22 10:46:00 EDT, [facility] #21119, 168, cm, 02/04/22 10:23:00 EDT, Height Start [...] 0 Refills, Maintenance, 10/30/19 13:41:00 EDT, Tablet, [facility] #76481, 162.56, cm, 08/17/19 16:32:00 EST, Height, 94.4, [...] Team Personnel Name: Marianne Perez RN Position: [facility] RN Member Role: Primary Care Nurse Name: Debi Cisse MD Position: [facility] Physician - Primary Care Member Role: PCP Address: Address: [address] [place] [address] [place], [place] [address] Name: Viola Gonzalez Position: [facility] Outreach Member Role: Lifetime Consulting Physician Care Team Related Persons Name: ITZEL GARCIA Name: AILYN ANDERSON Name: RAF NAVARRETE
--- OUTSIDE RECORDS SUMMARY | 2023-04-04 05:41 | XMS_ITS | Continuity of Care Document ---
Author Name Unknown Organization [facility] Address [address] [place] [address]- Care Team Providers Care Beader Tender Name Role Phone Betito OSORIO, Debi Lizama Primary Care Physician Encounter [facility] Date(s): 11/26/22 - 12/26/22 [facility] [address] [place] [address]- [place] Allergies, Adverse Reactions, Alerts Substance Reaction [...] Given 1Admin Note: [place] 2Location History: [facility] 3Result Comment: [06/04/2016] donna 4Result Comment: [04/08/2015] L&C 5Admin Note: DR. PASTOR, [place] Medications amLODIPine 10 mg oral tablet See Instructions, TAKE 1 TABLET BY MOUTH DAILY, # 90 each, 3 Refills, 09/24/21 10:21:00 EDT, [facility] #[id number], 168, cm, 09/24/21 10:10:00 EDT, Height Start Date: 09/24/21 Status: Ordered atorvastatin 20 mg oral tablet 1 tablet, By Mouth, Daily, # 90 tablet, 0 Refills, Maintenance, 11/23/22 8:41:00 EDT, [facility] #[id number], 168, cm, 10/30/22 16:18:00 EDT, Height Start [...] day, # 1 each, 5 Refills, Maintenance, [place] Start Date: 03/15/13 Stop Date: 09/11/13 Status: Ordered furosemide 40 mg oral tablet 1, tablet, By Mouth, Daily, # 90 tablet, Refills 3, Tot. Refills 3, Maintenance, 06/10/22 10:40:00 EST, Route to Pharmacy Electronically, [facility] #07656, 168, cm, 06/10/22 10:25:00 EST, Height Start Date: 06/10/22 Status: Ordered Imvexxy Maintenance Pack 10 mcg vaginal insert 1 insert, Vaginally, Every Wednesday and , # 8 supp, 5 Refills, Maintenance, 11/30/22 13:30:00EDT, [facility] #90239, Partial fill upon patient request, 168, cm, 11/30/22 13:08:00 EDT, Height Start Date: 11/30/22 Status: Ordered ipratropium nasal 21 mcg/inh spray See Instructions, PRN Nasal Congestion, 1 spray each nostril BID, # 1 each, 4 Refills, Maintenance,01/01/22 16:02:00 EDT, [facility] #74016, Partial fill upon patient request if the [...] tablet, Refills 3, Route to Pharmacy Electronically, [facility] #84956, 168, cm, 03/27/21 14:00:00 EDT, Height, 94.4, [...] 3 Refills, Maintenance, 04/12/20 10:50:00 EDT, Tablet, [facility] #92410, 162.56, cm, 03/01/20 14:13:00 EDT, Height, 94.4, [...] each, 3 Refills, Maintenance, 02/04/22 10:46:00 EDT, [facility] #13841, 168, cm, 02/04/22 10:23:00 EDT, Height Start [...] 0 Refills, Maintenance, 10/30/19 13:41:00 EDT, Tablet, [facility] #60582, 162.56, cm, 08/17/19 16:32:00 EST, Height, 94.4, [...] Name: Marianne Perez RN Position: [facility] RN Member Role: Primary Care Nurse Name: Debi Cisse MD Position: [facility] Physician - Primary Care Member Role: PCP Address: Address: [address] [place] [address] [place] [address]- Name: Viola Gonzalez Position: [facility] Outreach Member Role: Lifetime Consulting Physician Care Team Related Persons Name: ITZEL GARCIA Name: AILYN ANDERSON Name: RAF NAVARRETE
--- OUTSIDE RECORDS SUMMARY | 2023-04-04 05:41 | XMS_ITS | Continuity of Care Document ---
Author Name Unknown Organization [facility] Address [address] [place] [address]- Care Team Providers Care Plastics And Composites Inspector Name Role Phone Betito OSORIO, Debi M Primary Care Physician [phone] Encounter [facility] Date(s): 01/06/23 - 02/05/23 [facility] [address] [place] [address]- [place] Allergies, Adverse Reactions, Alerts Substance Reaction [...] Vacc (oldterm) 5 08/12/09 Given 1Admin Note: [facility] 2Location History: [facility] 3Result Comment: [06/04/2016] donna 4Result Comment: [04/08/2015] L&C 5Admin Note: DR. PASTOR, [place] Medications amLODIPine 10 mg oral tablet See Instructions, TAKE 1 TABLET BY MOUTH DAILY, # 90 each, 3 Refills, 09/24/21 10:21:00 EDT, [facility][id number], 168, cm, 09/24/21 10:10:00 EDT, Height Start Date: 09/24/21 Status: Ordered atorvastatin 20 mg oral tablet 1 tablet, By Mouth, Daily, # 90 tablet, 0 Refills, Maintenance, 11/23/22 8:41:00 EDT, [facility] #76408, 168, cm, 10/30/22 16:18:00 EDT, Height Start [...] Refills, Soft Stop, 01/15/23 11:51:00 EDT, Tablet, [facility]07917, Partial fill upon patient request ifthe prescription [...] day, # 1 each, 5 Refills, Maintenance, [place] Start Date: 03/15/13 Stop Date: 09/11/13 Status: Ordered furosemide 40 mg oral tablet 1, tablet, By Mouth, Daily, # 90 tablet, Refills 3, Tot. Refills 3, Maintenance, 06/10/22 10:40:00 EST, Route to Pharmacy Electronically, [facility]67072, 168, cm, 06/10/22 10:25:00 EST, Height Start Date: 06/10/22 Status: Ordered Imvexxy Maintenance Pack 10 mcg vaginal insert 1 insert, Vaginally, Every Wednesday and , # 8 supp, 5 Refills, Maintenance, 11/30/22 13:30:00EDT, [facility] #27485, Partial fill upon patient request, 168, cm, 11/30/22 13:08:00 EDT, Height Start Date: 11/30/22 Status: Ordered ipratropium nasal 21 mcg/inh spray See Instructions, PRN Nasal Congestion, 1 spray each nostril BID, # 1 each, 4 Refills, Maintenance,01/01/22 16:02:00 EDT, [facility] #52280, Partial fill upon patient request if the [...] tablet, Refills 3, Route to Pharmacy Electronically, [facility] #30755, 168, cm, 03/27/21 14:00:00 EDT, Height, 94.4, [...] 3 Refills, Maintenance, 04/12/20 10:50:00 EDT, Tablet, [facility] #44115, 162.56, cm, 03/01/20 14:13:00 EDT, Height, 94.4, [...] each, 3 Refills, Maintenance, 02/04/22 10:46:00 EDT, [facility] #56698, 168, cm, 02/04/22 10:23:00 EDT, Height Start [...] 02/10/23 12:04:00 EDT, 02/03/23 12:04:00 EDT, Capsule, [facility] #72155, Partial fill upon patient request if the prescription is for a schedule II opio... Start Date: 02/03/23 Stop Date: 02/10/23 Status: Ordered Nystop 530747 u/gm powder 1 applicator, Topically, 2 times a day, for 30 days, # 60 Gm, 11 Refills, Acute 01/24/24 16:44:00 EDT, 01/29/23 16:44:00 EDT, Powder, [facility]12722, Partial fill upon patient request ifthe prescription [...] 0 Refills, Maintenance, 10/30/19 13:41:00 EDT, Tablet, [facility] #97824, 162.56, cm, 08/17/19 16:32:00 EST, Height, 94.4, [...] Primary Care Member Role: PCP Address: Address: [address] [place] [address] Adult [employer] [address] Name: Viola Gonzalez Position: [facility] Outreach Member Role: Lifetime Consulting Physician Care Team Related Persons Name: ITZEL GARCIA Name: AILYN ANDERSON Name: RAF NAVARRETE
--- OUTSIDE RECORDS SUMMARY | 2023-04-04 05:41 | XMS_ITS | Continuity of Care Document ---
Author Name Unknown Organization [facility] Address [address] [place] [address]- Care Team Providers Care Senior Reservations Agent Name Role Phone Betito OSORIO, Debi M Primary Care Physician Encounter [facility] [id number] Date(s): 01/15/23 - 01/22/23 [facility] [address] [place] [address]- Attending Physician: Porsche Barton NP Allergies, Adverse Reactions, Alerts Substance Reaction [...] 1Admin Note: [facility] 2Location History: [facility] 3Result Comment: [06/04/2016] donna 4Result Comment: [04/08/2015] L&C 5Admin Note: DR. PASTOR, [place] Medications amLODIPine 10 mg oral tablet See Instructions, TAKE 1 TABLET BY MOUTH DAILY, # 90 each, 3 Refills, 09/24/21 10:21:00 EDT, [facility] #46977, 168, cm, 09/24/21 10:10:00 EDT, Height Start Date: 09/24/21 Status: Ordered atorvastatin 20 mg oral tablet 1 tablet, By Mouth, Daily, # 90 tablet, 0 Refills, Maintenance, 11/23/22 8:41:00 EDT, [facility] #63439, 168, cm, 10/30/22 16:18:00 EDT, Height Start [...] Refills, Soft Stop, 01/15/23 11:51:00 EDT, Tablet, [facility] #41803, Partial fill upon patient request ifthe prescription [...] day, # 1 each, 5 Refills, Maintenance, [place] Start Date: 03/15/13 Stop Date: 09/11/13 Status: Ordered furosemide 40 mg oral tablet 1, tablet, By Mouth, Daily, # 90 tablet, Refills 3, Tot. Refills 3, Maintenance, 06/10/22 10:40:00 EST, Route to Pharmacy Electronically, [facility] #52485, 168, cm, 06/10/22 10:25:00 EST, Height Start Date: 06/10/22 Status: Ordered Imvexxy Maintenance Pack 10 mcg vaginal insert 1 insert, Vaginally, Every Wednesday and , # 8 supp, 5 Refills, Maintenance, 11/30/22 13:30:00EDT, [facility] #96971, Partial fill upon patient request, 168, cm, 11/30/22 13:08:00 EDT, Height Start Date: 11/30/22 Status: Ordered ipratropium nasal 21 mcg/inh spray See Instructions, PRN Nasal Congestion, 1 spray each nostril BID, # 1 each, 4 Refills, Maintenance,01/01/22 16:02:00 EDT, [facility] #38140, Partial fill upon patient request if the [...] tablet, Refills 3, Route to Pharmacy Electronically, [facility] #07535, 168, cm, 03/27/21 14:00:00 EDT, Height, 94.4, [...] 3 Refills, Maintenance, 04/12/20 10:50:00 EDT, Tablet, [facility] #92721, 162.56, cm, 03/01/20 14:13:00 EDT, Height, 94.4, [...] each, 3 Refills, Maintenance, 02/04/22 10:46:00 EDT, [facility] #73494, 168, cm, 02/04/22 10:23:00 EDT, Height Start [...] 0 Refills, Maintenance, 10/30/19 13:41:00 EDT, Tablet, [facility] #68592, 162.56, cm, 08/17/19 16:32:00 EST, Height, 94.4, [...] oldest [Reference Range]: 1 Height 168 cm (01/15/23 10:41 AM) Oxygen Saturation [94-100 %] 95 % (01/15/23 10:41 AM) Pulse Rate [55-90 bpm] 75 bpm (01/15/23 10:41 AM) Blood Pressure [90-138/55-84 mm Hg] 138/ 68mm Hg (01/15/23 10:41 AM) Temperature [96.8-100.4 DegF] 97.6 DegF (01/15/23 10:41 AM) Liters per Minute 0 L/min (01/15/23 10:41 AM) Mode of Delivery (Oxygen) Room air (01/15/23 10:41 AM) Blood pressure sites Arm, right (01/15/23 10:41 AM) Temperature Route Temporal (01/15/23 10:41 AM) Social History Social History Type Response Smoking Status Former smoker entered on: 10/04/14 Sex Note * Nanci Lucia: PERFORM, SIGN, VERIFY Event Display: Patient Education/Instruction Authored Date: [id number] [facility] *BMP [facility]tn Clinical Summary Name RAF BRONSON Age 77 Years 1945 PCP Betito OSORIO, Debi Lizama PCP Visit Date 01/15/2023 10:31:00 Additional Instructions: Scheduled Appointments?? Future Appointments ?*[facility] ?[address]??[place],??[place],??[address] ?Phone:??--?Fax:??-- ?Appt. Date:??02/16/2023?4:00 PM ?Scheduled Provider:??Rina Saravia MD Follow-Up Instructions ?? [...] tab(s) Oral Daily. Refills: 0. Next Dose: BusPIRone (busPIRone 5 [...] Wednesday and . Refills: 5. Next Dose: Fluticasone Nasal (fluticasone 50 mcg/inh [...] cm Weight BMI Blood Pressure 138 mm Hg/68 mm Hg Temperature 97.6 DegF Pulse Rate 75 bpm Respiratory Rate 02 Sat Mode of Delivery 95 %/Room air You can now view a summary of your hospital visit from the comfort of your home through a free online portal called [employer]. [employer] is a website that allows you to securely view your medical information including discharge summary, medications and follow-up visits. ??You can alsosend a secure electronic message to your doctor???s office to request appointments, renew medications or just ask a question. You can enroll at [email or web address] or register during your next office [...] primary care provider, you may find a [facility] provider by calling [facility] at [phone]. For information about the plan of care [...] Team Personnel Name: Marianne Perez RN Position: [facility] RN Member Role: Primary Care Nurse Name: Debi Cisse MD Position: [facility] Physician - Primary Care Member Role: PCP Address: Address: [address] [place] [address] Adult [place], [place] [address] Name: Viola Gonzalez Position: [facility] Outreach Member Role: Lifetime Consulting Physician Care Team Related Persons Name: ITZEL GARCIA Name: AILYN ANDERSON Name: RAF NAVARRETE
--- OUTSIDE RECORDS SUMMARY | 2023-04-04 05:42 | XMS_ITS | Continuity of Care Document ---
Author Name Unknown Organization [facility] Address [address] [place] [address]- Care Team Providers Care Checking Clerk Name Role Phone Betito OSORIO, Debi Lizama Primary Care Physician Encounter [facility] [id number] Date(s): 03/04/23 - 04/03/23 [facility] [address] [place] [address]- [place] Allergies, Adverse Reactions, Alerts Substance Reaction Severity Status phenobarbital Active Active Lobster BLOODY STOOLS Active Other Food [...] inactivated 3 02/22/15 Re corded SARS-CoV-2 mRNA (ccjnfur-wqrh-kqjej) vax 10/01/21 Recorded SARS-CoV-2 (COVID-19) mRNA BNT-162b2 [...] donna 3Result Comment: [04/08/2015] L&C 4Admin Note: [facility] 5Admin Note: DR. PASTOR, [place] Medications amLODIPine 10 mg oral tablet See Instructions, TAKE 1 TABLET BY MOUTH DAILY, # 90 each, 3 Refills, 09/24/21 10:21:00 EDT, [facility] #[id number], 168, cm, 09/24/21 10:10:00 EDT, Height Start Date: 09/24/21 Status: Ordered atorvastatin 20 mg oral tablet 1 tablet, By Mouth, Daily, # 90 tablet, 0 Refills, Maintenance, 02/19/23 15:21:00 EDT, [facility] #81357, 168, cm, 01/15/23 10:41:00 EDT, Height Start [...] Refills, Soft Stop, 01/15/23 11:51:00 EDT, Tablet, [facility] #25591, Partial fill upon patient request ifthe prescription [...] day, # 1 each, 5 Refills, Maintenance, [place] Start Date: 03/15/13 Stop Date: 09/11/13 Status: Ordered furosemide 40 mg oral tablet 1, tablet, By Mouth, Daily, # 90 tablet, Refills 3, Tot. Refills 3, Maintenance, 06/10/22 10:40:00 EST, Route to Pharmacy Electronically, [facility] #[id number], 168, cm, 06/10/22 10:25:00 EST, Height Start Date: 06/10/22 Status: Ordered Imvexxy Maintenance Pack 10 mcg vaginal insert 1 insert, Vaginally, Every Wednesday and , # 8 supp, 5 Refills, Maintenance, 11/30/22 13:30:00EDT, [facility] #15640, Partial fill upon patient request, 168, cm, 11/30/22 13:08:00 EDT, Height Start Date: 11/30/22 Status: Ordered ipratropium nasal 21 mcg/inh spray See Instructions, PRN Nasal Congestion, 1 spray each nostril BID, # 1 each, 4 Refills, Maintenance,01/01/22 16:02:00 EDT, [facility] #09312, Partial fill upon patient request if the [...] use overnight and naps from [facility], 08/15/20 12:05:00 EST, Compound Start Date: [...] tablet, Refills 3, Route to Pharmacy Electronically, [facility] #77272, 168, cm, 03/27/21 14:00:00 EDT, Height, 94.4, [...] 3 Refills, Maintenance, 04/12/20 10:50:00 EDT, Tablet, [facility] #92139, 162.56, cm, 03/01/20 14:13:00 EDT, Height, 94.4, [...] tablet, 0 Refills, Maintenance, 02/19/23 15:48:00 EDT, [facility] #43630, 168, cm, 01/15/23 10:41:00 EDT, Height Start [...] EDT Start Date: 03/19/23 Status: Ordered Nystop 015339 u/gm powder 1 applicator, Topically, 2 times a day, for 30 days, # 60 Gm, 11 Refills, Acute 01/24/24 16:44:00 EDT, 01/29/23 16:44:00 EDT, Powder, [facility] #59613, Partial fill upon patient request ifthe prescription [...] 0 Refills, Maintenance, 10/30/19 13:41:00 EDT, Tablet, [facility] #59979, 162.56, cm, 08/17/19 16:32:00 EST, Height, 94.4, [...] Name: Marianne Perez RN Position: [facility] RN Member Role: Primary Care Nurse Name: Debi Cisse MD Position: [facility] Physician - Primary Care Member Role: PCP Address: Address: [address] [facility] [place] [address]- Name: Viola Gonzalez Position: [facility] Outreach Member Role: Lifetime Consulting Physician Care Team Related Persons Name: ITZEL GARCIA Name: AILYN ANDERSON Name: RAF NAVARRETE
--- OUTSIDE RECORDS SUMMARY | 2023-04-04 05:42 | XMS_ITS | Continuity of Care Document ---
Author Name Unknown Organization [facility] Address [address] [place] [address]- Care Team Providers Care Economics Professor Name Role Phone Betito OSORIO, Debi Lizama Primary Care Physician Encounter [facility] Date(s): 01/27/23 - 02/26/23 [facility] [address] [place] [address]- [place] Allergies, Adverse Reactions, Alerts Substance Reaction [...] (oldterm) 5 08/12/09 Given 1Admin Note: [facility] 2Location History: [facility] 3Result Comment: [06/04/2016] donna 4Result Comment: [04/08/2015] L&C 5Admin Note: DR. PASTOR, [place] Medications amLODIPine 10 mg oral tablet See Instructions, TAKE 1 TABLET BY MOUTH DAILY, # 90 each, 3 Refills, 09/24/21 10:21:00 EDT, [facility] #16193, 168, cm, 09/24/21 10:10:00 EDT, Height Start Date: 09/24/21 Status: Ordered atorvastatin 20 mg oral tablet 1 tablet, By Mouth, Daily, # 90 tablet, 0 Refills, Maintenance, 02/19/23 15:21:00 EDT, [facility] #06761, 168, cm, 01/15/23 10:41:00 EDT, Height Start [...] Refills, Soft Stop, 01/15/23 11:51:00 EDT, Tablet, [facility] #96354, Partial fill upon patient request ifthe prescription [...] day, # 1 each, 5 Refills, Maintenance, [place] Start Date: 03/15/13 Stop Date: 09/11/13 Status: Ordered furosemide 40 mg oral tablet 1, tablet, By Mouth, Daily, # 90 tablet, Refills 3, Tot. Refills 3, Maintenance, 06/10/22 10:40:00 EST, Route to Pharmacy Electronically, [facility] #94267, 168, cm, 06/10/22 10:25:00 EST, Height Start Date: 06/10/22 Status: Ordered Imvexxy Maintenance Pack 10 mcg vaginal insert 1 insert, Vaginally, Every Wednesday and , # 8 supp, 5 Refills, Maintenance, 11/30/22 13:30:00EDT, [facility] #31576, Partial fill upon patient request, 168, cm, 11/30/22 13:08:00 EDT, Height Start Date: 11/30/22 Status: Ordered ipratropium nasal 21 mcg/inh spray See Instructions, PRN Nasal Congestion, 1 spray each nostril BID, # 1 each, 4 Refills, Maintenance,01/01/22 16:02:00 EDT, [facility] #15772, Partial fill upon patient request if the [...] tablet, Refills 3, Route to Pharmacy Electronically, [facility] #70805, 168, cm, 03/27/21 14:00:00 EDT, Height, 94.4, [...] 3 Refills, Maintenance, 04/12/20 10:50:00 EDT, Tablet, [facility] #99468, 162.56, cm, 03/01/20 14:13:00 EDT, Height, 94.4, [...] tablet, 0 Refills, Maintenance, 02/19/23 15:48:00 EDT, [facility] #96435, 168, cm, 01/15/23 10:41:00 EDT, Height Start [...] 10:07:54 Start Date: 04/23/16 Status: Ordered Nystop 543099 u/gm powder 1 applicator, Topically, 2 times a day, for 30 days, # 60 Gm, 11 Refills, Acute 01/24/24 16:44:00 EDT, 01/29/23 16:44:00 EDT, Powder, [facility] #[id number], Partial fill upon patient request ifthe prescription [...] 0 Refills, Maintenance, 10/30/19 13:41:00 EDT, Tablet, [facility] #71327, 162.56, cm, 08/17/19 16:32:00 EST, Height, 94.4, [...] Primary Care Member Role: PCP Address: Address: [address] [place] [address] [place] [address]- Name: Viola Gonzalez Position: [facility] Outreach Member Role: Lifetime Consulting Physician Care Team Related Persons Name: ITZEL GARCIA Name: AILYN ANDERSON Name: RAF NAVARRETE
--- OUTSIDE RECORDS SUMMARY | 2023-04-04 05:43 | XMS_ITS | Continuity of Care Document ---
Author Name Unknown Organization [facility] Address [address] [place] [address]- Care Team Providers Care Molecular Geneticist Name Role Phone Betito OSORIO, Debi Lizama Primary Care Physician Encounter [facility] Date(s): 01/25/23 - 02/24/23 [facility] [address] [place] [address]- [place] Allergies, Adverse Reactions, Alerts Substance Reaction [...] (oldterm) 5 08/12/09 Given 1Admin Note: [facility] 2Location History: shelter 3Result Comment: [06/04/2016] donna 4Result Comment: [04/08/2015] L&C 5Admin Note: DR. PASTOR, [place] Medications amLODIPine 10 mg oral tablet See Instructions, TAKE 1 TABLET BY MOUTH DAILY, # 90 each, 3 Refills, 09/24/21 10:21:00 EDT, [facility] #91753, 168, cm, 09/24/21 10:10:00 EDT, Height Start Date: 09/24/21 Status: Ordered atorvastatin 20 mg oral tablet 1 tablet, By Mouth, Daily, # 90 tablet, 0 Refills, Maintenance, 02/19/23 15:21:00 EDT, [facility] #77059, 168, cm, 01/15/23 10:41:00 EDT, Height Start [...] Refills, Soft Stop, 01/15/23 11:51:00 EDT, Tablet, [facility] #71469, Partial fill upon patient request ifthe prescription [...] day, # 1 each, 5 Refills, Maintenance, [place] Start Date: 03/15/13 Stop Date: 09/11/13 Status: Ordered furosemide 40 mg oral tablet 1, tablet, By Mouth, Daily, # 90 tablet, Refills 3, Tot. Refills 3, Maintenance, 06/10/22 10:40:00 EST, Route to Pharmacy Electronically, [facility] #77925, 168, cm, 06/10/22 10:25:00 EST, Height Start Date: 06/10/22 Status: Ordered Imvexxy Maintenance Pack 10 mcg vaginal insert 1 insert, Vaginally, Every Wednesday and , # 8 supp, 5 Refills, Maintenance, 11/30/22 13:30:00EDT, [facility] #45728, Partial fill upon patient request, 168, cm, 11/30/22 13:08:00 EDT, Height Start Date: 11/30/22 Status: Ordered ipratropium nasal 21 mcg/inh spray See Instructions, PRN Nasal Congestion, 1 spray each nostril BID, # 1 each, 4 Refills, Maintenance,01/01/22 16:02:00 EDT, [facility] #09394, Partial fill upon patient request if the [...] tablet, Refills 3, Route to Pharmacy Electronically, [facility] #96488, 168, cm, 03/27/21 14:00:00 EDT, Height, 94.4, [...] 3 Refills, Maintenance, 04/12/20 10:50:00 EDT, Tablet, [facility] #80926, 162.56, cm, 03/01/20 14:13:00 EDT, Height, 94.4, [...] tablet, 0 Refills, Maintenance, 02/19/23 15:48:00 EDT, [facility] #90465, 168, cm, 01/15/23 10:41:00 EDT, Height Start [...] 10:07:54 Start Date: 04/23/16 Status: Ordered Nystop 545721 u/gm powder 1 applicator, Topically, 2 times a day, for 30 days, # 60 Gm, 11 Refills, Acute 01/24/24 16:44:00 EDT, 01/29/23 16:44:00 EDT, Powder, [facility] #54060, Partial fill upon patient request ifthe prescription [...] 0 Refills, Maintenance, 10/30/19 13:41:00 EDT, Tablet, [facility] #16096, 162.56, cm, 08/17/19 16:32:00 EST, Height, 94.4, [...] Team Personnel Name: Marianne Perez RN Position: [facility] RN Member Role: Primary Care Nurse Name: Debi Cisse MD Position: [facility] Physician - Primary Care Member Role: PCP Address: Address: [address] [place] [address] Adult [place], [place] [address] Name: Viola Gonzalez Position: [facility] Outreach Member Role: Lifetime Consulting Physician Care Team Related Persons Name: ITZEL GARCIA Name: AILYN ANDERSON Name: RAF NAVARRETE
--- OUTSIDE RECORDS SUMMARY | 2023-04-04 05:43 | XMS_ITS | Continuity of Care Document ---
Author Name Unknown Organization [facility] Andi Campbell [facility] Address [address], [address] [place] [address]- Care Team Providers Care Radio Intelligence Operator Name Role Phone Betito OSORIO, Debi Lizama Primary Care Physician [place] [facility] [place] - 12/24/22 [facility] [place] [facility] [address] [place], [place] [address] Attending Physician: Admtr, [id number] Admitting Physician: Admtr, [...] 1Admin Note: [facility] 2Location History: long-term 3Result Comment: [06/04/2016] donna 4Result Comment: [04/08/2015] L&C 5Admin Note: DR. PASTOR, [place] Medications amLODIPine 10 mg oral tablet See Instructions, TAKE 1 TABLET BY MOUTH DAILY, # 90 each, 3 Refills, 09/24/21 10:21:00 EDT, [facility] #[id number], 168, cm, 09/24/21 10:10:00 EDT, Height Start Date: 09/24/21 Status: Ordered atorvastatin 20 mg oral tablet 1 tablet, By Mouth, Daily, # 90 tablet, 0 Refills, Maintenance, 11/23/22 8:41:00 EDT, [facility] #[id number], 168, cm, 10/30/22 16:18:00 EDT, Height Start [...] day, # 1 each, 5 Refills, Maintenance, [place] Start Date: 03/15/13 Stop Date: 09/11/13 Status: Ordered furosemide 40 mg oral tablet 1, tablet, By Mouth, Daily, # 90 tablet, Refills 3, Tot. Refills 3, Maintenance, 06/10/22 10:40:00 EST, Route to Pharmacy Electronically, [facility] #[id number], 168, cm, 06/10/22 10:25:00 EST, Height Start Date: 06/10/22 Status: Ordered Imvexxy Maintenance Pack 10 mcg vaginal insert 1 insert, Vaginally, Every Wednesday and , # 8 supp, 5 Refills, Maintenance, 11/30/22 13:30:00EDT, [facility] #[id number], Partial fill upon patient request, 168, cm, 11/30/22 13:08:00 EDT, Height Start Date: 11/30/22 Status: Ordered ipratropium nasal 21 mcg/inh spray See Instructions, PRN Nasal Congestion, 1 spray each nostril BID, # 1 each, 4 Refills, Maintenance,01/01/22 16:02:00 EDT, [facility] #[id number], Partial fill upon patient request if the [...] tablet, Refills 3, Route to Pharmacy Electronically, [facility] #[id number], 168, cm, 03/27/21 14:00:00 EDT, Height, 94.4, [...] 3 Refills, Maintenance, 04/12/20 10:50:00 EDT, Tablet, [facility] #[id number], 162.56, cm, 03/01/20 14:13:00 EDT, Height, 94.4, [...] each, 3 Refills, Maintenance, 02/04/22 10:46:00 EDT, [facility] #[id number], 168, cm, 02/04/22 10:23:00 EDT, Height Start [...] 0 Refills, Maintenance, 10/30/19 13:41:00 EDT, Tablet, [facility] #59578, 162.56, cm, 08/17/19 16:32:00 EST, Height, 94.4, [...] Cisse MD Position: [facility] Physician - Primary Care Member Role: PCP Address: Address: [address] [place] [address] Adult [place], [place] [address] Name: Viola Gonzalez Position: [facility] Outreach Member Role: Lifetime Consulting Physician Care Team Related Persons Name: ITZEL GARCIA Name: AILYN ANDERSON Name: RAF NAVARRETE
--- OUTSIDE RECORDS SUMMARY | 2023-04-04 05:43 | XMS_ITS | Continuity of Care Document ---
Author Name Unknown Organization [facility] Address [address] [place] [address]- Care Team Providers Care Aerospace Products Sales Engineer Name Role Phone Betito OSORIO, Debi Lizama Primary Care Physician [phone] Encounter [facility] Date(s): 01/29/23 - 02/28/23 [facility] [address] [place] [address]- [place] Allergies, Adverse Reactions, Alerts Substance Reaction [...] Vacc (oldterm) 5 08/12/09 Given 1Admin Note: [facility] 2Location History: shelter 3Result Comment: [06/04/2016] donna 4Result Comment: [04/08/2015] L&C 5Admin Note: DR. PASTOR, [place] Medications amLODIPine 10 mg oral tablet See Instructions, TAKE 1 TABLET BY MOUTH DAILY, # 90 each, 3 Refills, 09/24/21 10:21:00 EDT, [facility] #[id number], 168, cm, 09/24/21 10:10:00 EDT, Height Start Date: 09/24/21 Status: Ordered atorvastatin 20 mg oral tablet 1 tablet, By Mouth, Daily, # 90 tablet, 0 Refills, Maintenance, 02/19/23 15:21:00 EDT, [facility] #[id number], 168, cm, 01/15/23 10:41:00 EDT, Height Start [...] Refills, Soft Stop, 01/15/23 11:51:00 EDT, Tablet, [facility] #[id number], Partial fill upon patient request ifthe prescription [...] day, # 1 each, 5 Refills, Maintenance, [place] Start Date: 03/15/13 Stop Date: 09/11/13 Status: Ordered furosemide 40 mg oral tablet 1, tablet, By Mouth, Daily, # 90 tablet, Refills 3, Tot. Refills 3, Maintenance, 06/10/22 10:40:00 EST, Route to Pharmacy Electronically, [facility] #[id number], 168, cm, 06/10/22 10:25:00 EST, Height Start Date: 06/10/22 Status: Ordered Imvexxy Maintenance Pack 10 mcg vaginal insert 1 insert, Vaginally, Every Wednesday and , # 8 supp, 5 Refills, Maintenance, 11/30/22 13:30:00EDT, [facility] #[id number], Partial fill upon patient request, 168, cm, 11/30/22 13:08:00 EDT, Height Start Date: 11/30/22 Status: Ordered ipratropium nasal 21 mcg/inh spray See Instructions, PRN Nasal Congestion, 1 spray each nostril BID, # 1 each, 4 Refills, Maintenance,01/01/22 16:02:00 EDT, [facility] #[id number], Partial fill upon patient request if the [...] tablet, Refills 3, Route to Pharmacy Electronically, [facility] #[id number], 168, cm, 03/27/21 14:00:00 EDT, Height, 94.4, [...] 3 Refills, Maintenance, 04/12/20 10:50:00 EDT, Tablet, [facility] #[id number], 162.56, cm, 03/01/20 14:13:00 EDT, Height, 94.4, [...] tablet, 0 Refills, Maintenance, 02/19/23 15:48:00 EDT, [facility] #53465, 168, cm, 01/15/23 10:41:00 EDT, Height Start [...] 10:07:54 Start Date: 04/23/16 Status: Ordered Nystop 075624 u/gm powder 1 applicator, Topically, 2 times a day, for 30 days, # 60 Gm, 11 Refills, Acute 01/24/24 16:44:00 EDT, 01/29/23 16:44:00 EDT, Powder, [facility] #[id number], Partial fill upon patient request ifthe prescription [...] 0 Refills, Maintenance, 10/30/19 13:41:00 EDT, Tablet, [facility] #09235, 162.56, cm, 08/17/19 16:32:00 EST, Height, 94.4, [...] Debi Cisse MD Position: [facility] Physician - Primary Care Member Role: PCP Address: Address: [address] [place] [address] [place] [address]- Name: Viola Gonzalez Position: [facility] Outreach Member Role: Lifetime Consulting Physician Care Team Related Persons Name: ITZEL GARCIA Name: AILYN ANDERSON Name: RAF NAVARRETE
--- OUTSIDE RECORDS SUMMARY | 2023-04-04 05:43 | XMS_ITS | Continuity of Care Document ---
Author Name Unknown [facility] Address [address] [place] [address]- Care Team Providers Care Lease Picker Name Role Phone Betito OSORIO, Debi M Primary Care Physician Encounter [facility] Date(s): 02/04/23 - 03/06/23 [facility] [address] [place] [address]- [place] Allergies, Adverse Reactions, Alerts Substance Reaction [...] 1Admin Note: [facility] 2Location History: nursing home 3Result Comment: [06/04/2016] donna 4Result Comment: [04/08/2015] L&C 5Admin Note: DR. PASTOR, [place] Medications amLODIPine 10 mg oral tablet See Instructions, TAKE 1 TABLET BY MOUTH DAILY, # 90 each, 3 Refills, 09/24/21 10:21:00 EDT, [facility] #[id number], 168, cm, 09/24/21 10:10:00 EDT, Height Start Date: 09/24/21 Status: Ordered atorvastatin 20 mg oral tablet 1 tablet, By Mouth, Daily, # 90 tablet, 0 Refills, Maintenance, 02/19/23 15:21:00 EDT, [facility] #[id number], 168, cm, 01/15/23 10:41:00 EDT, Height Start [...] Refills, Soft Stop, 01/15/23 11:51:00 EDT, Tablet, [facility] #39545, Partial fill upon patient request ifthe prescription [...] day, # 1 each, 5 Refills, Maintenance, [place] Start Date: 03/15/13 Stop Date: 09/11/13 Status: Ordered furosemide 40 mg oral tablet 1, tablet, By Mouth, Daily, # 90 tablet, Refills 3, Tot. Refills 3, Maintenance, 06/10/22 10:40:00 EST, Route to Pharmacy Electronically, [facility] #[id number], 168, cm, 06/10/22 10:25:00 EST, Height Start Date: 06/10/22 Status: Ordered Imvexxy Maintenance Pack 10 mcg vaginal insert 1 insert, Vaginally, Every Wednesday and , # 8 supp, 5 Refills, Maintenance, 11/30/22 13:30:00EDT, [facility] #00359, Partial fill upon patient request, 168, cm, 11/30/22 13:08:00 EDT, Height Start Date: 11/30/22 Status: Ordered ipratropium nasal 21 mcg/inh spray See Instructions, PRN Nasal Congestion, 1 spray each nostril BID, # 1 each, 4 Refills, Maintenance,01/01/22 16:02:00 EDT, [facility] #69352, Partial fill upon patient request if the [...] tablet, Refills 3, Route to Pharmacy Electronically, [facility] #[id number], 168, cm, 03/27/21 14:00:00 EDT, Height, 94.4, [...] 3 Refills, Maintenance, 04/12/20 10:50:00 EDT, Tablet, [facility] #99243, 162.56, cm, 03/01/20 14:13:00 EDT, Height, 94.4, [...] tablet, 0 Refills, Maintenance, 02/19/23 15:48:00 EDT, [facility] #[id number], 168, cm, 01/15/23 10:41:00 EDT, Height Start [...] 10:07:54 Start Date: 04/23/16 Status: Ordered Nystop 894293 u/gm powder 1 applicator, Topically, 2 times a day, for 30 days, # 60 Gm, 11 Refills, Acute 01/24/24 16:44:00 EDT, 01/29/23 16:44:00 EDT, Powder, [facility] #36363, Partial fill upon patient request ifthe prescription [...] 0 Refills, Maintenance, 10/30/19 13:41:00 EDT, Tablet, [facility] #24249, 162.56, cm, 08/17/19 16:32:00 EST, Height, 94.4, [...] Team Personnel Name: Marianne Perez RN Position: [facility] RN Member Role: Primary Care Nurse Name: Debi Cisse MD Position: [facility] Physician - Primary Care Member Role: PCP Address: Address: [address] [place] [address] [place] [address]- Name: Viola Gonzalez Position: [facility] Outreach Member Role: Lifetime Consulting Physician Care Team Related Persons Name: ITZEL GARCIA Name: AILYN ANDERSON Name: RAF NAVARRETE
--- OUTSIDE RECORDS SUMMARY | 2023-04-04 05:43 | XMS_ITS | Continuity of Care Document ---
Author Name Unknown Organization [facility] Address [address] [place] [address]- Care Team Providers Care Critical Care Clinical Nurse Specialist Name Role Phone Betito OSORIO, Debi Lizama Primary Care Physician Encounter [facility] Date(s): 12/09/22 - 01/08/23 [facility] [address] [place] [address]- [place] Allergies, Adverse Reactions, Alerts Substance Reaction [...] Vacc (oldterm) 5 08/12/09 Given 1Admin Note: [facility] 2Location History: intermediate 3Result Comment: [06/04/2016] donna 4Result Comment: [04/08/2015] L&C 5Admin Note: DR. PASTOR, [place] Medications amLODIPine 10 mg oral tablet See Instructions, TAKE 1 TABLET BY MOUTH DAILY, # 90 each, 3 Refills, 09/24/21 10:21:00 EDT, [facility] #[id number], 168, cm, 09/24/21 10:10:00 EDT, Height Start Date: 09/24/21 Status: Ordered atorvastatin 20 mg oral tablet 1 tablet, By Mouth, Daily, # 90 tablet, 0 Refills, Maintenance, 11/23/22 8:41:00 EDT, [facility] #04859, 168, cm, 10/30/22 16:18:00 EDT, Height Start [...] day, # 1 each, 5 Refills, Maintenance, [place] Start Date: 03/15/13 Stop Date: 09/11/13 Status: Ordered furosemide 40 mg oral tablet 1, tablet, By Mouth, Daily, # 90 tablet, Refills 3, Tot. Refills 3, Maintenance, 06/10/22 10:40:00 EST, Route to Pharmacy Electronically, [facility] #[id number], 168, cm, 06/10/22 10:25:00 EST, Height Start Date: 06/10/22 Status: Ordered Imvexxy Maintenance Pack 10 mcg vaginal insert 1 insert, Vaginally, Every Wednesday and , # 8 supp, 5 Refills, Maintenance, 11/30/22 13:30:00EDT, [facility] #[id number], Partial fill upon patient request, 168, cm, 11/30/22 13:08:00 EDT, Height Start Date: 11/30/22 Status: Ordered ipratropium nasal 21 mcg/inh spray See Instructions, PRN Nasal Congestion, 1 spray each nostril BID, # 1 each, 4 Refills, Maintenance,01/01/22 16:02:00 EDT, [facility] #44017, Partial fill upon patient request if the [...] tablet, Refills 3, Route to Pharmacy Electronically, [facility] #[id number], 168, cm, 03/27/21 14:00:00 EDT, Height, 94.4, [...] 3 Refills, Maintenance, 04/12/20 10:50:00 EDT, Tablet, [facility] #81710, 162.56, cm, 03/01/20 14:13:00 EDT, Height, 94.4, [...] each, 3 Refills, Maintenance, 02/04/22 10:46:00 EDT, [facility] #[id number], 168, cm, 02/04/22 10:23:00 EDT, Height Start [...] 0 Refills, Maintenance, 10/30/19 13:41:00 EDT, Tablet, [facility] #10519, 162.56, cm, 08/17/19 16:32:00 EST, Height, 94.4, [...] Personnel Name: Marianne Perez RN Position: [facility] RN Member Role: Primary Care Nurse Name: Debi Cisse MD Position: [facility] Physician - Primary Care Member Role: PCP Address: Address: [address] [place] [address] [place], [place] [address] Name: Viola Gonzalez Position: [facility] Outreach Member Role: Lifetime Consulting Physician Care Team Related Persons Name: ITEZL GARCIA Name: AILYN ANDERSON Name: RAF NAVARRETE
[2023-04-04 06:29] VITALS: PULSE 60; RESP 17
--- NOTE | 2023-04-04 06:58 | ED_ITS ---
HPI - Chest Pain General Chief Complaint: Chest Pain Stated Complaint: cp Time Seen by Provider: 04/04/23 06:56 Source: patient Mode of arrival: EMS Limitations: no limitations History of Present Illness HPI narrative: 77 yo female with PMH of GERD, HLD, HTN, CARMEN on CPAP, recurrent UTI, WC bound due to prior femur fracture, hypothyroidism, mood disorder, denies any prior blood clots and cardiac issues here with c/o chest pain on and off x 2 weeks left chest and felt slightly short of breath but no other associated symptoms - not related to exertion. States unsure if related to her daughter given daughter just had cardiac stents. She denies cough or URI symptoms, no fevers. States she had minimal relief with nitro and aspirin. MD complaint: chest pain Onset (ago): week(s) (2) Timing of current episode: episodic Prior episodes: Yes Onset: during rest Pain location: substernal and left chest Pain radiation: left arm Severity: mild Quality: tightness Relieving factors: nitroglycerin Exacerbating factors: nothing Associated symptoms: dyspnea Treatment prior to arrival: aspirin and nitroglycerin Related Data Home Medications Medication Instructions Recorded Confirmed Lactobacillus acidophilus 2 tab PO BID 10/21/22 12/15/22 acetaminophen 500 mg tablet 1,000 mg PO TID PRN Pain, Mild 10/21/22 12/15/22 amlodipine 10 mg tablet 10 mg PO DAILY 10/21/22 12/15/22 ascorbic acid (vitamin C) 1,000 mg 1,000 mg PO BID 10/21/22 12/15/22 tablet atorvastatin 20 mg tablet 20 mg PO DAILY 10/21/22 12/15/22 buprenorphine HCl 2 mg sublingual 4 mg sublingual TID 10/21/22 12/15/22 tablet buspirone 5 mg tablet 5 mg PO DAILY 10/21/22 12/15/22 cetirizine 10 mg tablet 10 mg PO DAILY 10/21/22 12/15/22 cholecalciferol (vitamin D3) 10 10 mcg PO DAILY 10/21/22 12/15/22 mcg (400 unit) tablet escitalopram oxalate 20 mg tablet 20 mg PO DAILY 10/21/22 12/15/22 furosemide 40 mg tablet 40 mg PO DAILY 10/21/22 12/15/22 lamotrigine 200 mg tablet 200 mg PO BID 10/21/22 12/15/22 latanoprost 0.005 % eye drops 1 drp ophthalmic (eye) BEDTIME 10/21/22 12/15/22 levothyroxine 75 mcg tablet 75 mcg PO DAILY@0600 10/21/22 12/15/22 lidocaine 5 % topical patch 3 patch topical DAILY 10/21/22 12/15/22 lorazepam 0.5 mg tablet 0.5 mg PO DAILY PRN Anxiety 10/21/22 12/15/22 losartan 100 mg tablet 100 mg PO DAILY 10/21/22 12/15/22 meloxicam 15 mg tablet 15 mg PO DAILY 10/21/22 12/15/22 methenamine hippurate 1 gram tablet 1 g PO BID 10/21/22 12/15/22 multivitamin 1 tab PO DAILY 10/21/22 12/15/22 omeprazole 20 mg capsule,delayed 20 mg PO BID@0630,1630 10/21/22 12/15/22 release polyethylene glycol 3350 17 gram 17 g PO BID 10/21/22 12/15/22 oral powder packet (Miralax) psyllium 1 packet PO BID 10/21/22 12/15/22 buspirone 5 mg tablet 15 mg PO BEDTIME 11/23/22 12/15/22 Previous Rx's Medication Instructions Recorded cefuroxime axetil 500 mg tablet 500 mg PO BID 19 days #38 tabs 12/14/22 lorazepam 0.5 mg tablet (Ativan) 0.5 mg PO DAILY PRN anxiety #14 12/17/22 tabs oxycodone 5 mg tablet 5 mg PO Q6H PRN pain #14 tabs 12/17/22 Allergies Allergy/AdvReac Type Severity Reaction Status Date / Time atropine [From ] Allergy Unknown Verified 12/15/22 02:16 clams Allergy Unknown Verified 12/15/22 02:16 crab Allergy Unknown Verified 12/15/22 02:16 enalaprilat [From Vasotec] Allergy Blister Verified 12/15/22 02:16 hyoscyamine [From ] Allergy Unknown Verified 12/15/22 02:16 phenobarbital Allergy Unknown Verified 12/15/22 02:16 scopolamine [From ] Allergy Unknown Verified 12/15/22 02:16 shellfish derived Allergy Unknown Verified 12/15/22 02:16 Sulfa (Sulfonamide Allergy Unknown Verified 12/15/22 02:16 Antibiotics) Review of Systems 2 Review of Systems: Constitutional : No Weight loss, No Fever, No Chills ENT/Mouth : No sore throat, No Rhinorrhea Eyes: No Eye Pain, No Swelling Cardiovascular : pos Chest Pain, pos SOB, no Dyspnea on Exertion, No Orthopnea, No Edema, No Palpitations Respiratory : No Cough, No Sputum Gastrointestinal : no Nausea, No Vomiting, No Diarrhea, No abdominal Pain, No Hematochezia, No Melena Genitourinary : No Dysuria, No Urinary Frequency Musculoskeletal : No joint pain, No Myalgias, No Joint Swelling Skin : No Skin Lesions, No rash Neuro : No Weakness, No Numbness, No Dizziness, No Headache Psych : No Anxiety/Panic, No Depression All other systems reviewed and are negative [facility] Past Medical History Attestation statement: The following information was validated with the patient. Source: old records reviewed Medical History Lumbar pain E coli bacteremia Acute hip pain Left arm weakness Anxiety GERD (gastroesophageal reflux disease) Peripheral neuropathy CARMEN on CPAP Lymphoma Resting tremor Restless leg syndrome Recurrent UTI Urinary incontinence Hyperlipidemia Hypothyroidism Hypertension Surgical History S/P radiation therapy Social History Social History Household Members: None Housing: Other Housing Other:: senior housing Do you presently have visiting nurse or other home services: Yes Alcohol intake: never Patient Tobacco Use Status: Never used Tobacco Smoked in Last 30 Days: No Advance Directives: No Advance Directives Information Provided: No service: No Current occupational status: retired Physical Exam 2 Vital Signs: Vital Signs: Last Vital Signs Temp 98.4 F 04/04/23 05:19 Pulse 60 04/04/23 06:29 Resp 17 04/04/23 06:29 BP 153/53 H 04/04/23 05:19 Pulse Ox 98 04/04/23 05:19 O2 Del Method Room Air 04/04/23 05:19 BMI result Body Mass Index 28.4 Appearance: Alert. Oriented X3. No acute distress. Eyes: Pupils equal, round and reactive to light. ENT: Pharynx normal. Neck: Normal inspection. Neck supple. CVS: Normal heart rate and rhythm. Pulses normal. Respiratory: No respiratory distress. Breath sounds normal. Abdomen: Soft and nontender. Skin: Skin warm and dry. Normal skin color. Normal skin turgor. Extremities: No lower extremity edema. No calf ttp Neuro: Oriented X 3. No motor deficit. No sensory deficit. Medical Decision Making Medical Decision Making [facility] Narrative: 77 yo female with PMH of GERD, HLD, HTN, CARMEN on CPAP, recurrent UTI, WC bound due to prior femur fracture, hypothyroidism, mood disorder here with c/o chest pain not related to exertion with mild dyspnea x 2 weeks but no infectious symptoms no signs of edema - at this time will obtain basic labs, EKG, troponin x 2, given WC bound status ddimer ordered. no orthopnea, edema, JVD to suggest CHF. she did have some improvement with nitro but not full and she has no prior known CAD work up would not based treatmetnt off this improvement. Differential Diagnosis Differential Diagnoses: The differential diagnosis associated with the presentation includes chest pain, acs, VTE, atypical chest pain Admission/Observation Consideration of admission/observation: Escalation of care including admission/observation considered trop flat x 3, EKG nonischemic, ddimer negative VS stable can be DC home Lab Data [facility] Lab Attestation statement: I reviewed the patient's lab results. plts and LFTs at baseline 04/04/23 05:16 04/04/23 05:16 Labs: Lab Results 04/04/23 04/04/23 04/04/23 Range/Units 05:16 08:27 10:41 WBC 4.2 L (4.8-10.8) X10*3/uL RBC 4.41 D (4.20-5.50) X10*6/uL Hgb 13.6 D (12.0-16.0) g/dl Hct 40.6 D (37.0-47.0) % MCV 92.1 (80.0-98.0) fL MCH 30.8 (27.0-33.0) pg MCHC 33.5 (31.0-35.0) g/dl RDW 12.1 (11.0-16.0) % Plt Count 123 L (160-400) X10*3/uL MPV 9.7 (9.4-12.3) fL Immature Gran % (Auto) 0.2 (0.0-0.4) % Neut % (Auto) 61.2 (45-73) % Lymph % (Auto) 23.9 (20-40) % [place] % (Auto) 10.8 (2-11) % Eos % (Auto) 3.4 (0-4) % Baso % (Auto) 0.5 (0-2) % Lymph # (Auto) 1.0 L (1.2-4.9) X10*3/uL [place] # (Auto) 0.5 (0.1-1.2) X10*3/uL Eos # (Auto) 0.1 (0.0-0.4) X10*3/uL Baso # (Auto) 0.0 (0.0-0.2) X10*3/uL Abs Immat Gran (auto) 0.01 (0.00-0.03) X10*3/uL Absolute Neuts (auto) 2.5 (2.0-8.3) x10*3/uL Absolute Nucleated RBC 0.000 (0.0-0.012) X10*3/uL Nucleated RBC % (auto) 0.0 (0.0-0.2) /100WBC D-Dimer High Sensitivty 157 NG/ML Sodium 136 (135-145) mmol/L Potassium 4.6 (3.3-5.1) mmol/L Chloride 98 (96-108) mmol/L Carbon Dioxide 24 (22-29) mmol/L Anion Gap 19 (12-20) BUN 24 H (9-16) mg/dL Creatinine 0.80 (0.5-1.4) mg/dL Estim Creat Clear Calc 60.8 Estimated GFR > 60 Random Glucose 101 (60-115) mg/dL Calcium 9.8 (8.4-10.2) mg/dL Magnesium 2.3 (1.6-2.6) mg/dL Total Bilirubin 0.4 (0.0-1.0) mg/dL AST 34 H (5-31) U/L ALT 32 H (0-31) U/L Alkaline Phosphatase 58 (39-117) U/L Troponin I High Sens 4.7 D 8.0 D 6.6 (<3.5-17.0) ng/L Total Protein 8.0 (6.5-8.0) g/dL Albumin 4.6 (3.5-5.0) g/dL Independent Interpretation I performed an independent interpretation of an: EKG and Plain X-Ray (normal ) Interpretation: Rate: 64 Rhythm: NSR [place]: normal Normal P waves. Normal SANDRA. Normal QRS complex. Poor R wave progression ST T wave : normal no MONISHA qTC: normal prior studies: no acute ischemia The study has been interpreted contemporaneously by me. . Radiology Impression Discussion of test interpretation with radiology: I have reviewed the radiologist's reading. Independent Historian Clinical information obtained from an independent historian. History obtained from or confirmed by: EMS External Record Review External record reviewed: Inpatient record Discharge Plan Discharge Clinical Impression: Chest pain Qualifiers: Chest pain type: precordial pain Qualified Code(s): R07.2 - Precordial pain Patient Disposition: Home, Self-Care Instructions: Chest Pain (ED) Additional Instructions: EKG normal, chest xray normal, 3 blood tests for heart attack normal, blood clot test normal, all other blood work at baseline, follow up with doctor for outpatient stress test. return for worsening pain, fevers, vomiting, increased pain, difficulty breathing or any other concerns. Prescriptions: No Action furosemide 40 mg tablet 40 mg PO DAILY atorvastatin 20 mg tablet 20 mg PO DAILY methenamine hippurate 1 gram tablet 1 g PO BID cetirizine 10 mg Tablet 10 mg PO DAILY amlodipine 10 mg tablet 10 mg PO DAILY losartan 100 mg Tablet 100 mg PO DAILY latanoprost 0.005 % Drops 1 drp OPHTHALMIC (EYE) BEDTIME buspirone 5 mg Tablet 5 mg PO DAILY ascorbic acid (vitamin C) 1,000 mg Tablet 1,000 mg PO BID lamotrigine 200 mg Tablet 200 mg PO BID polyethylene glycol 3350 [Miralax] 17 gram Powder In Packet 17 g PO BID meloxicam 15 mg Tablet 15 mg PO DAILY psyllium Packet 1 packet PO BID Rx Instructions: mix into at least 8 oz of water or juice before administering levothyroxine 75 mcg Tablet 75 mcg PO DAILY@0600 lorazepam 0.5 mg Tablet 0.5 mg PO DAILY PRN (Reason: Anxiety) omeprazole 20 mg Capsule,Delayed Release(Dr/Ec) 20 mg PO BID@0630,1630 escitalopram oxalate 20 mg Tablet 20 mg PO DAILY multivitamin Tablet 1 tab PO DAILY cholecalciferol (vitamin D3) 10 mcg (400 unit) Tablet 10 mcg PO DAILY buprenorphine HCl 2 mg Tablet, Sublingual 4 mg SUBLINGUAL TID acetaminophen 500 mg Tablet 1,000 mg PO TID PRN (Reason: Pain, Mild) lidocaine 5 % Adhesive Patch,Medicated 3 patch TOPICAL DAILY Rx Instructions: leave on most painful area for up to 12 hrs Lactobacillus acidophilus Tablet,Chewable 2 tab PO BID buspirone 5 mg Tablet 15 mg PO BEDTIME cefuroxime axetil 500 mg tablet 500 mg PO BID 19 Days Qty: 38 0RF oxycodone 5 mg tablet 5 mg PO Q6H PRN (Reason: pain) Qty: 14 0RF Rx Instructions: Partial Fill upon patient request. lorazepam [Ativan] 0.5 mg tablet 0.5 mg PO DAILY PRN (Reason: anxiety) Qty: 14 0RF
[2023-04-04 08:00] VITALS: BP 142/77; PULSE 67; RESP 19
--- NOTE | 2023-04-04 08:30 | MHC.EDTECH ---
patient requested a purewick. this tech placed a purewick. 0815.
[2023-04-04 08:39] LABS: D Dimer High Sensitivity 157 NG/ML
[2023-04-04 10:00] VITALS: BP 119/47; PULSE 59; RESP 19
[2023-04-04 11:07] LABS: Troponin-I High Sensitivity 6.6 ng/L (<3.5-17.0)
[2023-04-04 11:47] VITALS: BP 160/81; PULSE 75; RESP 19; O2SAT 95
== END 2023-04-04 20:18 | disposition home or self-care (01) ==
PROVIDERS: Emergency Provider Emergency Medicine; PCP Family Medicine
DX: R07.89 Other chest pain (principal); R06.02 Shortness of breath; Z79.899 Other long term (current) drug therapy
CPT/HCPCS: 36415; 71045; 80053; 83735; 84484; 85025; 85379; 93005; 99283; 99285

== ENCOUNTER 2024-08-16 11:33 | Emergency (ER) | payer MEDICARE, OTHER, SELFPAY ==
--- NOTE | ~2024-08-16 | XR_ITS ---
EXAMINATION: XR ANKLE, LEFT CLINICAL INFORMATION: trauma COMPARISON: None available. TECHNIQUE: AP, lateral, and mortise views of the left ankle. FINDINGS: There is diffuse osteopenia. No visible acute fracture, dislocation or subluxation seen. The ankle mortise and subtalar joints are normal. There is bimalleolar soft tissue swelling. XR/XR ankle LT min 3V IMPRESSION: Diffuse osteopenia. No visible acute fracture or dislocation seen. Bimalleolar soft tissue swelling. Electronically signed by: Kevin Montenegro MD 08/16/2024 01:48 PM EST
--- NOTE | ~2024-08-16 | XR_ITS ---
EXAMINATION: XR SHOULDER, RIGHT CLINICAL INFORMATION: trauma COMPARISON: None available. TECHNIQUE: AP external rotation, Grashey, scapular Y, and axillary views of the right shoulder. FINDINGS: There is mild loss of glenohumeral and AC joint space with periarticular spurring. No visible acute fracture, dislocation or subluxation seen. There is soft tissue calcification along the greater tuberosity likely calcific bursitis. No acute fracture, dislocation or subluxation seen. XR/XR shoulder RT min 2V IMPRESSION: Degenerative changes right shoulder joint. No visible acute fracture or dislocation seen. Electronically signed by: Kevin Montenegro MD 08/16/2024 01:51 PM EST
--- NOTE | ~2024-08-16 | XR_ITS ---
EXAMINATION: Left tibia and fibula 2 views. CLINICAL INDICATION: Trauma. COMPARISON: None. FINDINGS: The entire tibia and fibula is visualized and is intact. No visible acute fracture or bony abnormality seen. The soft tissues are normal. XR/XR tibia fibula LT 2V IMPRESSION: Unremarkable left tibia and fibula exam. Electronically signed by: Kevin Montenegro MD 08/16/2024 01:50 PM EST
--- NOTE | ~2024-08-16 | XR_ITS ---
EXAMINATION: XR FEMUR, LEFT CLINICAL INFORMATION: trauma COMPARISON: None available. TECHNIQUE: AP and lateral views of the left femur were obtained. FINDINGS: The bones and soft tissues are normal. No fracture. No osseous lesions. XR/XR femur LT 2V IMPRESSION: There is an old healed distal femoral fracture with medial callus formation. There is no acute fracture or dislocation. There is mild osteopenia. The sclerotic bone along the left fissure likely old injury. The soft tissues are normal. IMPRESSION: No visible acute fracture or bony abnormality. Mild osteopenia.. Electronically signed by: Kevin Montenegro MD 08/16/2024 01:47 PM EST
--- NOTE | ~2024-08-16 | XR_ITS ---
EXAMINATION: XR PELVIS CLINICAL INFORMATION: trauma COMPARISON: AP pelvis 12/14/2022. TECHNIQUE: AP view of the pelvis. FINDINGS: There is mild loss of bilateral hip joint space without any visible fracture, dislocation. There is mild irregularity along the left femoral head likely arthritic changes. There is sclerosis along the left examination likely from old injury or infarction. No acute fracture or dislocation seen. XR/XR pelvis 1-2V IMPRESSION: No acute fracture or dislocation. No major change from 12/14/2022 Electronically signed by: Kevin Montenegro MD 08/16/2024 01:52 PM EST RP
[2024-08-16 11:49] VITALS: BP 148/53; BP 158/68; PULSE 72; PULSE 88; RESP 18; TEMP 36.6; O2SAT 97; BMI 31.4
--- NOTE | 2024-08-16 11:49 | ED.FALL ---
HPI - Fall General Chief Complaint: Fall Stated Complaint: fall out of recliner, poss L ankle injury Time Seen by Provider: 08/16/24 11:40 Source: patient Mode of arrival: EMS Limitations: no limitations History of Present Illness HPI Narrative: This is a 79 years old the patient not ambulatory at baseline presented to the emergency room after a fall from the wheelchair at chief complaint is left thigh pain and left leg pain and right shoulder pain no head injury no neck pain no chest wall pain or abdominal pain. MD complaint: fall Onset (ago): hour(s) (2) Fall from: wheelchair Fall witnessed: no Place fall occurred: home Loss of consciousness: none Prolonged down time: no Symptoms prior to fall: none Context: tripped/slipped Location of injury - extremities: left: thigh and lower leg and right: shoulder Severity: moderate Associated symptoms (after fall): denies Related Data Home Medications ?Medication ?Instructions ?Recorded ?Confirmed Lactobacillus acidophilus 2 tab PO BID 10/21/22 12/15/22 acetaminophen 500 mg tablet 1,000 mg PO TID PRN Pain, Mild 10/21/22 12/15/22 amlodipine 10 mg tablet 10 mg PO DAILY 10/21/22 12/15/22 ascorbic acid (vitamin C) 1,000 mg 1,000 mg PO BID 10/21/22 12/15/22 tablet atorvastatin 20 mg tablet 20 mg PO DAILY 10/21/22 12/15/22 buprenorphine HCl 2 mg sublingual 4 mg sublingual TID 10/21/22 12/15/22 tablet buspirone 5 mg tablet 5 mg PO DAILY 10/21/22 12/15/22 cetirizine 10 mg tablet 10 mg PO DAILY 10/21/22 12/15/22 cholecalciferol (vitamin D3) 10 10 mcg PO DAILY 10/21/22 12/15/22 mcg (400 unit) tablet escitalopram oxalate 20 mg tablet 20 mg PO DAILY 10/21/22 12/15/22 furosemide 40 mg tablet 40 mg PO DAILY 10/21/22 12/15/22 lamotrigine 200 mg tablet 200 mg PO BID 10/21/22 12/15/22 latanoprost 0.005 % eye drops 1 drp ophthalmic (eye) BEDTIME 10/21/22 12/15/22 levothyroxine 75 mcg tablet 75 mcg PO DAILY@0600 10/21/22 12/15/22 lidocaine 5 % topical patch 3 patch topical DAILY 10/21/22 12/15/22 lorazepam 0.5 mg tablet 0.5 mg PO DAILY PRN Anxiety 10/21/22 12/15/22 losartan 100 mg tablet 100 mg PO DAILY 10/21/22 12/15/22 meloxicam 15 mg tablet 15 mg PO DAILY 10/21/22 12/15/22 methenamine hippurate 1 gram tablet 1 g PO BID 10/21/22 12/15/22 multivitamin 1 tab PO DAILY 10/21/22 12/15/22 omeprazole 20 mg capsule,delayed 20 mg PO BID@0630,1630 10/21/22 12/15/22 release polyethylene glycol 3350 17 gram 17 g PO BID 10/21/22 12/15/22 oral powder packet (Miralax) psyllium 1 packet PO BID 10/21/22 12/15/22 buspirone 5 mg tablet 15 mg PO BEDTIME 11/23/22 12/15/22 Previous Rx's ?Medication ?Instructions ?Recorded cefuroxime axetil 500 mg tablet 500 mg PO BID 19 days #38 tabs 12/14/22 lorazepam 0.5 mg tablet (Ativan) 0.5 mg PO DAILY PRN anxiety #14 12/17/22 tabs oxycodone 5 mg tablet 5 mg PO Q6H PRN pain #14 tabs 12/17/22 Allergies Allergy/AdvReac Type Severity Reaction Status Date / Time atropine [From ] Allergy Unknown Verified 08/16/24 11:54 clams Allergy Unknown Verified 08/16/24 11:54 crab Allergy Unknown Verified 08/16/24 11:54 enalaprilat [From Vasotec] Allergy Blister Verified 08/16/24 11:54 hyoscyamine [From ] Allergy Unknown Verified 08/16/24 11:54 phenobarbital Allergy Unknown Verified 08/16/24 11:54 scopolamine [From ] Allergy Unknown Verified 08/16/24 11:54 shellfish derived Allergy Unknown Verified 08/16/24 11:54 Sulfa (Sulfonamide Allergy Unknown Verified 08/16/24 11:54 Antibiotics) Review of Systems Constitutional: Constitutional: Reports no additional constitutional complaints Cardiovascular: Cardiovascular: Reports no additional cardiovascular complaints Gastrointestinal: Gastrointestinal: Reports no additional gastrointestinal complaints [facility] Past Medical History [facility] Narrative: History of lymphoma, anxiety, GERD Medical History Lumbar pain E coli bacteremia Acute hip pain Left arm weakness Anxiety GERD (gastroesophageal reflux disease) S/P radiation therapy Peripheral neuropathy CARMEN on CPAP Lymphoma Resting tremor Restless leg syndrome Recurrent UTI Urinary incontinence Hyperlipidemia Hypothyroidism Hypertension Social History Social History Household Members: None Housing: Other Housing Other:: senior housing Do you presently have visiting nurse or other home services: Yes Alcohol intake: never Patient Tobacco Use Status: Never used Tobacco Advance Directives: No Advance Directives Information Provided: Yes Do you have a plan to hurt others: No Plan service: No Current occupational status: retired Physical Exam Vital Signs: Vital Signs: Last Vital Signs Temp 97.9 F 08/16/24 11:49 Pulse 88 08/16/24 11:49 Resp 18 08/16/24 11:49 BP 148/53 H 08/16/24 11:49 Pulse Ox 97 08/16/24 11:49 O2 Del Method Room Air 08/16/24 11:49 BMI result Body Mass Index 31.4 Const: General: cooperative Nutritional Appearance: average body habitus Orientation/consciousness: patient oriented x3 HEENT: Head: Yes normal to inspection General nose exam: Normal external nose present Mouth: Normal oral and palatal mucosa present Neck: Neck: Yes normal visual inspection and Yes full ROM Chest: Chest palpation & inspection: normal inspection of the chest Resp: Effort & Inspection: normal respiratory effort Auscultation: clear to auscultation bilaterally Cardio: Jugular venous distension: no JVD Rate: regular rate Rhythm: regular rhythm GI: Inspection: Yes normal to inspection Palpation (GI): Soft to palpation Neuro: General: patient oriented x3 Extrem: Other: Tenderness in the left eye tenderness in the left leg and right shoulder no deformity seen General: Yes full ROM Course Reevaluation(s) Reevaluation #1: X-ray negative no fracture no dislocation anticipate discharge Time: 14:26 Medications Administered Discontinued Medications Generic Name Dose Route Start Last Admin Trade Name Freq PRN Reason Stop Dose Admin Acetaminophen 975 mg 08/16/24 11:48 08/16/24 12:23 Acetaminophen 325 Mg Tablet PO 08/16/24 11:49 975 mg ONCE ONE Administration Medical Decision Making Medical Decision Making MDM Narrative: Patient presented after a fall we will obtain imaging Differential Diagnosis Differential Diagnoses: The differential diagnosis associated with the presentation includes Femur fracture tib-fib fracture shoulder fracture Admission/Observation Consideration of admission/observation: Escalation of care including admission/observation considered Independent Interpretation I performed an independent interpretation of an: Plain X-Ray Radiology Impression Discussion of test interpretation with radiology: I have reviewed the radiologist's reading. Discharge Plan Discharge Clinical Impression: Fall Qualifiers: Encounter type: initial encounter Qualified Code(s): W19.XXXA - Unspecified fall, initial encounter Contusion Qualifiers: Encounter type: initial encounter Contusion area: lower leg Laterality: left Qualified Code(s): S80.12XA - Contusion of left lower leg, initial encounter Patient Disposition: Home, Self-Care Instructions: Fall Prevention (ED), Bone Bruise (ED) Additional Instructions: Follow-up with your primary care physician return to the emergency room if you worse Prescriptions: No Action furosemide 40 mg tablet 40 mg PO DAILY atorvastatin 20 mg tablet 20 mg PO DAILY methenamine hippurate 1 gram tablet 1 g PO BID cetirizine 10 mg Tablet 10 mg PO DAILY amlodipine 10 mg tablet 10 mg PO DAILY losartan 100 mg Tablet 100 mg PO DAILY latanoprost 0.005 % Drops 1 drp OPHTHALMIC (EYE) BEDTIME buspirone 5 mg Tablet 5 mg PO DAILY ascorbic acid (vitamin C) 1,000 mg Tablet 1,000 mg PO BID lamotrigine 200 mg Tablet 200 mg PO BID polyethylene glycol 3350 [Miralax] 17 gram Powder In Packet 17 g PO BID meloxicam 15 mg Tablet 15 mg PO DAILY psyllium Packet 1 packet PO BID Rx Instructions: mix into at least 8 oz of water or juice before administering levothyroxine 75 mcg Tablet 75 mcg PO DAILY@0600 lorazepam 0.5 mg Tablet 0.5 mg PO DAILY PRN (Reason: Anxiety) omeprazole 20 mg Capsule,Delayed Release(Dr/Ec) 20 mg PO BID@0630,1630 escitalopram oxalate 20 mg Tablet 20 mg PO DAILY multivitamin Tablet 1 tab PO DAILY cholecalciferol (vitamin D3) 10 mcg (400 unit) Tablet 10 mcg PO DAILY buprenorphine HCl 2 mg Tablet, Sublingual 4 mg SUBLINGUAL TID acetaminophen 500 mg Tablet 1,000 mg PO TID PRN (Reason: Pain, Mild) lidocaine 5 % Adhesive Patch,Medicated 3 patch TOPICAL DAILY Rx Instructions: leave on most painful area for up to 12 hrs Lactobacillus acidophilus Tablet,Chewable 2 tab PO BID buspirone 5 mg Tablet 15 mg PO BEDTIME cefuroxime axetil 500 mg tablet 500 mg PO BID 19 Days Qty: 38 0RF oxycodone 5 mg tablet 5 mg PO Q6H PRN (Reason: pain) Qty: 14 0RF Rx Instructions: Partial Fill upon patient request. lorazepam [Ativan] 0.5 mg tablet 0.5 mg PO DAILY PRN (Reason: anxiety) Qty: 14 0RF Print Language: Argentine
[2024-08-16] MEDS: Acetaminophen 325 MG TABLET 975 MG PO (12:23)
[2024-08-16 14:26] VITALS: BP 148/53; PULSE 88; RESP 18; TEMP 36.6; O2SAT 97
--- OUTSIDE RECORDS SUMMARY | 2024-08-16 14:38 | XMS_ITS ---
Author Organization [facility] Address [address] [place] [id number] Care Team Providers Care Systems Trainer Name Role Phone Debi Cisse MD Primary Care Provider Unavailab Starla Toro Unavailable [phone] REASON FOR VISIT BUY Nail Fijian Encounters Encounter Location Date Provider Diagnosis [address] [address] 07/10/2024 Starla Alex Plan Of Treatment Next Appt Details Provider Name:Starla Johnson , 09/11/2024 01:00:00 PM, [address] [place] [address], [phone], Provider Name:Starla Johnson , 11/13/2024 01:00:00 PM, [address] [place] [address], [phone], Progress Notes * Celi BRONSON SROB: (78 yo F)Acc No.[id number]:07/10/2024 Patient:?MAICO KRAMERCeliu :1945???Age:78 Y???Sex:Female Address:[address] [place] [address], [phone] * true * Date:? Generated for Adair moon/[place]/eTransmitting on:?08/16/2024 02:37 PM EST
--- OUTSIDE RECORDS SUMMARY | 2024-08-16 14:38 | XMS_ITS ---
Author Organization [facility] Address [address] [place] [id number] Care Team Providers Care Environmental Engineering Intern Name Role Phone Debi Cisse MD Primary Care Provider Unavailab julien Johnson Starla Unavailable [phone] REASON FOR VISIT BUY 3 bags [employer] [employer] Encounters Encounter Location Date Provider Diagnosis [address] [address] 07/10/2024 Starla Alex Plan Of Treatment Next Appt Details Provider Name:Starla Johnson , 09/11/2024 01:00:00 PM, [address] [place] [address], [phone], Provider Name:Starla Johnson , 11/13/2024 01:00:00 PM, [address] [place] [address], [phone], Progress Notes * Celi BRONSON SROB: (78 yo F)Acc No.[id number]:07/10/2024 Patient:?MAICO KRAMERCeliu :1945???Age:78 Y???Sex:Female Address:[address] [place] [address], [phone] * true * Date:? Generated for Adair moon/[place]/eTransmitting on:?08/16/2024 02:37 PM EST
--- NOTE | 2024-08-16 15:06 | PC.NURSE ---
Pt didn't want to wait for pharmacy to deliver ordered pain meds and states she'll take her own meds at home
== END 2024-08-16 15:07 | disposition home or self-care (01) ==
PROVIDERS: Emergency Provider Emergency Medicine; PCP Family Medicine
DX: S80.12XA Contusion of left lower leg, initial encounter (principal); M25.511 Pain in right shoulder; I10 Essential (primary) hypertension; W05.0XXA Fall from non-moving wheelchair, initial encounter; Y93.9 Activity, unspecified; Y92.009 Unspecified place in unspecified non-institutional (private) residence as the place of occurrence of the external cause; Y99.9 Unspecified external cause status
CPT/HCPCS: 72170; 73030; 73552; 73590; 73610; 99283; 99284

== ENCOUNTER → 2024-08-16 11:47 | Outpatient (BNV) | payer MEDICARE, OTHER, SELFPAY | PROVIDERS: Emergency Provider Emergency Medicine; PCP Family Medicine; Visit Provider Radiology Diagnostic Radiology | DX: M25.511 Pain in right shoulder (principal); M79.605 Pain in left leg; M79.652 Pain in left thigh; W19.XXXA Unspecified fall, initial encounter | CPT/HCPCS: 72170; 73030; 73552; 73590; 73610 ==

== ENCOUNTER 2025-04-03 07:32 | Emergency (ER) | payer MEDICARE, OTHER, SELFPAY ==
--- NOTE | ~2025-04-03 | CT_ITS ---
EXAMINATION: CT ANGIOGRAM LEFT UPPER EXTREMITY CLINICAL INFORMATION: Ecchymosis and swelling. Rule out DVT or bleed. COMPARISON: None available. TECHNIQUE: Axial images through the left upper extremity following 80 mL Omnipaque 350 IV contrast. Sagittal and coronal 3-D MIP reconstructions were obtained. This CT examination was performed using dose optimization techniques as appropriate, variously including the following: *Automated exposure control *Adjustment of mA and/or kV according to patient size (this includes techniques or standardized protocols for targeted exams where dose is matched to indication/reason for exam; i.e. extremities or head) *Use of iterative reconstruction technique DLP 2 6 3 mgy/cm FINDINGS: Vascular: The aortic arch and left subclavian artery origin are not included in the [id number]. The visualized left subclavian artery is patent and normal in caliber. The left axillary and brachial arteries are patent and normal in caliber. The ulnar artery is patent and normal in caliber. The radial artery appears very small in caliber or severely attenuated but appears patent to the wrist. The interosseous artery appears small in caliber or attenuated but patent as well. No filling defects to suggest acute thrombus is seen. No evidence of aneurysm, vessel injury or active bleeding. Venous phase imaging not performed. DVT cannot be assessed. There is a slightly heterogeneous fluid collection in the biceps muscle measuring 2.5 x 4 x 12 cm in dimension. This may represent a hematoma. Differential would include muscle contusion or tear and myositis or infection. Neoplasm considered less likely but cannot be excluded with certainty. There is a small amount of subcutaneous edema is seen in the forearm. Small left axillary lymph nodes. No enlarged lymph nodes. There are mild degenerative changes at the shoulder joint. There are small sclerotic foci in the left humeral head. Elbow and wrist joints are unremarkable. There are degenerative changes of the visualized cervical spine. The visualized left common carotid and vertebral arteries are patent. The left carotid bifurcation is patent. The visualized lung apices are clear.. CT/CT angio UE LT IMPRESSION: No evidence of active bleeding or vessel injury. Small caliber or diffusely attenuated left radial artery patent to the wrist. Otherwise left upper extremity vessels are normal appearing. The left subclavian artery origin and aortic arch not included in the field of view and not assessed. Venous phase imaging not obtained and DVT cannot be assessed. 2.5 x 4 x 12 cm slightly heterogeneous low-attenuation or fluid collection in the biceps muscle. Differential would include hematoma or trauma to the muscle, myositis or infection. Neoplasm considered less likely but cannot be excluded with certainty. This could be further evaluated with upper extremity MRI clinically warranted. Electronically signed by: Jenniffer Carney MD 04/03/2025 11:35 AM EDT
[2025-04-03 07:40] VITALS: BP 154/78; BP 181/74; PULSE 63; PULSE 67; RESP 18; TEMP 36.3; O2SAT 94; O2SAT 96; BMI 30.6
--- NOTE | 2025-04-03 07:59 | ED.EXTPRO ---
HPI - Extremity Problem General Chief complaint: Extremity Problem Stated complaint: FOREARM RASH PER EMS Time Seen by Provider: 04/03/25 07:41 Source: patient and EMS Mode of arrival: EMS Limitations: no limitations History of Present Illness ED Provider: DR. Avila HPI Narrative: 79-year-old female came in by ambulance for evaluation of left arm swelling, tenderness, with bruising and hematoma. Patient declined any trauma, no fall, or injury to the left upper extremity, patient is not on any blood thinner, patient recently used a supplemental pills for energy and memory support that she ordered from [employer] otherwise no new prescribe the medication. Related Data Home Medications ?Medication ?Instructions ?Recorded ?Confirmed Lactobacillus acidophilus 2 tab PO BID 10/21/22 12/15/22 acetaminophen 500 mg tablet 1,000 mg PO TID PRN Pain, Mild 10/21/22 12/15/22 amlodipine 10 mg tablet 10 mg PO DAILY 10/21/22 12/15/22 ascorbic acid (vitamin C) 1,000 mg 1,000 mg PO BID 10/21/22 12/15/22 tablet atorvastatin 20 mg tablet 20 mg PO DAILY 10/21/22 12/15/22 buprenorphine HCl 2 mg sublingual 4 mg sublingual TID 10/21/22 12/15/22 tablet buspirone 5 mg tablet 5 mg PO DAILY 10/21/22 12/15/22 cetirizine 10 mg tablet 10 mg PO DAILY 10/21/22 12/15/22 cholecalciferol (vitamin D3) 10 10 mcg PO DAILY 10/21/22 12/15/22 mcg (400 unit) tablet escitalopram oxalate 20 mg tablet 20 mg PO DAILY 10/21/22 12/15/22 furosemide 40 mg tablet 40 mg PO DAILY 10/21/22 12/15/22 lamotrigine 200 mg tablet 200 mg PO BID 10/21/22 12/15/22 latanoprost 0.005 % eye drops 1 drp ophthalmic (eye) BEDTIME 10/21/22 12/15/22 levothyroxine 75 mcg tablet 75 mcg PO DAILY@0600 10/21/22 12/15/22 lidocaine 5 % topical patch 3 patch topical DAILY 10/21/22 12/15/22 lorazepam 0.5 mg tablet 0.5 mg PO DAILY PRN Anxiety 10/21/22 12/15/22 losartan 100 mg tablet 100 mg PO DAILY 10/21/22 12/15/22 meloxicam 15 mg tablet 15 mg PO DAILY 10/21/22 12/15/22 methenamine hippurate 1 gram tablet 1 g PO BID 10/21/22 12/15/22 multivitamin 1 tab PO DAILY 10/21/22 12/15/22 omeprazole 20 mg capsule,delayed 20 mg PO BID@0630,1630 10/21/22 12/15/22 release polyethylene glycol 3350 17 gram 17 g PO BID 10/21/22 12/15/22 oral powder packet (Miralax) psyllium 1 packet PO BID 10/21/22 12/15/22 buspirone 5 mg tablet 15 mg PO BEDTIME 11/23/22 12/15/22 Previous Rx's ?Medication ?Instructions ?Recorded cefuroxime axetil 500 mg tablet 500 mg PO BID 19 days #38 tabs 12/14/22 lorazepam 0.5 mg tablet (Ativan) 0.5 mg PO DAILY PRN anxiety #14 12/17/22 tabs oxycodone 5 mg tablet 5 mg PO Q6H PRN pain #14 tabs 12/17/22 Allergies Allergy/AdvReac Type Severity Reaction Status Date / Time atropine (From ) Allergy Unknown Verified 04/03/25 07:48 clams Allergy Unknown Verified 04/03/25 07:48 crab Allergy Unknown Verified 04/03/25 07:48 enalaprilat (From Vasotec) Allergy Blister Verified 04/03/25 07:48 hyoscyamine (From ) Allergy Unknown Verified 04/03/25 07:48 phenobarbital Allergy Unknown Verified 04/03/25 07:48 scopolamine (From ) Allergy Unknown Verified 04/03/25 07:48 shellfish derived Allergy Unknown Verified 04/03/25 07:48 Sulfa (Sulfonamide Allergy Unknown Verified 04/03/25 07:48 Antibiotics) Review of Systems Review of Systems: All other systems are reviewed and are negative Constitutional: Reports as per HPI and Reports no additional constitutional complaints Eyes: Reports as per HPI and Reports no additional eye complaints Reports system reviewed and no additional complaints, except as documented Cardiovascular: Reports as per HPI and Reports no additional cardiovascular complaints Respiratory: Reports as per HPI and Reports no additional respiratory complaints Gastrointestinal: Reports as per HPI and Reports no additional gastrointestinal complaints Genitourinary: Reports no additional female genitourinary complaints Musculoskeletal: Reports no additional musculoskeletal complaints Skin/Breast: Reports system reviewed and no additional complaints, except as docu Psychiatric: Reports no additional psychiatric complaints Endocrine: Reports no additional endocrine complaints Hematologic/Lymphatic: Reports no additional hematologic/lymphatic complaints Allergic/Immunologic: Reports no additional allergic/immunologic complaints Reports system reviewed and no additional complaints, except as documented and Reports Abnormal speech present FOR[facility]LY [facility] Past Medical History Medical History Lumbar pain E coli bacteremia Acute hip pain Left arm weakness Anxiety GERD (gastroesophageal reflux disease) Peripheral neuropathy CARMEN on CPAP Lymphoma Resting tremor Restless leg syndrome Recurrent UTI Urinary incontinence Hyperlipidemia Hypothyroidism Hypertension Surgical History S/P radiation therapy Social History Social History Household Members: None Housing: Other Housing Other:: senior housing Do you presently have visiting nurse or other home services: Yes Alcohol intake: never Patient Tobacco Use Status: Never used Tobacco Smoked in Last 30 Days: No Use of substances other than those prescribed or required for medical reasons: No Advance Directives: Yes Advance Directives Information Provided: Yes Advance Directives on File: No service: No Current occupational status: retired Physical Exam Vital Signs: Vital Signs: Last Vital Signs Temp 97.1 F 04/03/25 10:51 Pulse 51 04/03/25 12:49 Resp 16 04/03/25 12:49 BP 157/55 H 04/03/25 12:49 Pulse Ox 96 04/03/25 12:49 O2 Del Method Room Air 04/03/25 12:49 BMI result Body Mass Index 30.6 Vital signs have been reviewed and appear to be correct. Blood pressure elevated. Heart rate normal. Respiratory rate normal. Temperature normal. Oxygen saturation normal. Appearance: Alert. Oriented X3. No acute distress. Head: Normal external exam. Normocephalic. Atraumatic. No Riggs signs noted. No raccoon eyes noted Eyes: PERRLA. EOMI. Conjunctiva and sclera normal. Eyelids normal. ENT: TM's Normal. Pharynx normal. Uvula midline. Moist mucous membranes. No trismus noted. No drooling noted. No muffled voice noted. Neck: Normal inspection. Neck supple. FROM. No adenopathy. Thyroid Normal. No meningeal signs. No neck mass noted. CVS: Normal heart rate and rhythm. Heart sound normal. No murmurs noted. Pulses normal throughout. Respiratory: No respiratory distress. Painless inspiration. Breath sounds normal. No wheezes/rales/rhonchi noted. Chest nontender. No accessory muscle usage noted or decreased air movement noted. Abdomen: Soft and nontender. Bowel sounds normal in all 4 quadrants. No distention noted. No organomegaly noted. No visible injury noted. Back: No CVA tenderness. Full range of motion noted. Skin: Skin warm and dry. Normal skin color. Normal skin turgor. No rashes/lesions/lacerations noted. Extremities: Left upper extremity, neurovascularly intact. Neuro: Oriented X 3. Cranial nerve exam: II-XII are grossly intact No motor deficit. No sensory deficit. Reflexes normal. Course Reevaluation(s) Reevaluation #1: 79-year-old female came in for evaluation of left forearm ecchymosis without trauma, mild thrombocytopenia, no coagulopathy. CT of the arm shows no evidence of active bleeding or visible injury fluid collection in the biceps muscle which is likely to be hematoma in the biceps, blood workup today is revealing mild thrombocytopenia otherwise no other coagulopathy. Patient was instructed to avoid aspirin or any antiplatelet and follow-up with Dr. Penaloza. For further outpatient hematological follow-up Time: 13:18 Medications Administered Discontinued Medications Generic Name Dose Route Start Last Admin Trade Name Freq PRN Reason Stop Dose Admin Iohexol 100 ml 04/03/25 10:37 04/03/25 10:37 Iohexol 350 Mg/Ml 100 Ml Infus..Btl IV 04/03/25 10:38 80 ml ONCE ONE Administration Medical Decision Making Differential Diagnosis Differential Diagnoses: The differential diagnosis associated with the presentation includes (Rhabdomyolysis, left biceps muscle hematoma, severe anemia, thrombocytopenia, coagulopathy.) Admission/Observation Consideration of admission/observation: Escalation of care including admission/observation considered Lab Data MDM Lab Attestation statement: I reviewed the patient's lab results. 04/03/25 09:38 04/03/25 09:38 Labs: Lab Results 04/03/25 04/03/25 Range/Units 09:38 11:10 WBC 4.0 L (4.8-10.8) X10*3/uL RBC 3.85 L (4.20-5.50) X10*6/uL Hgb 11.8 L (12.0-16.0) g/dl Hct 35.4 L (37.0-47.0) % MCV 91.9 (80.0-98.0) fL MCH 30.6 (27.0-33.0) pg MCHC 33.3 (31.0-35.0) g/dl RDW 12.3 (11.0-16.0) % Plt Count 131 L (160-400) X10*3/uL MPV 9.2 L (9.4-12.3) fL Immature Gran % (Auto) 0.3 (0.0-0.4) % Neut % (Auto) 72.6 (45-73) % Lymph % (Auto) 14.3 L (20-40) % Graves % (Auto) 11.0 (2-11) % Eos % (Auto) 1.3 (0-4) % Baso % (Auto) 0.5 (0-2) % Lymph # (Auto) 0.6 L (1.2-4.9) X10*3/uL Graves # (Auto) 0.4 (0.1-1.2) X10*3/uL Eos # (Auto) 0.1 (0.0-0.4) X10*3/uL Baso # (Auto) 0.0 (0.0-0.2) X10*3/uL Abs Immat Gran (auto) 0.01 (0.00-0.03) X10*3/uL Absolute Neuts (auto) 2.9 (2.0-8.3) x10*3/uL Absolute Nucleated RBC 0.000 (0.0-0.012) X10*3/uL Nucleated RBC % (auto) 0.0 (0.0-0.2) /100WBC PT 11.2 (10.9-12.4) SEC INR 1.0 (0.9-1.1) APTT 29.4 (26.7-34.1) SEC Sodium 135 (135-145) mmol/L Potassium 4.1 (3.3-5.1) mmol/L Chloride 99 (96-108) mmol/L Carbon Dioxide 29 (22-29) mmol/L Anion Gap 11 L (12-20) BUN 11 (9-16) mg/dL Creatinine 0.64 (0.5-1.4) mg/dL Estim Creat Clear Calc 76.2 Estimated GFR > 60 Random Glucose 100 (60-115) mg/dL Calcium 9.2 D (8.4-10.2) mg/dL Urine Color Yellow Urine Appearance Clear Urine pH 8.5 (5.0-9.0) Ur Specific [place] 1.015 (1.005-1.025) Urine Protein Negative (Neg-Trace) mg/dL Urine Glucose (UA) Negative (Negative) mg/dL Urine Ketones Negative (Negative) mg/dL Urine Blood Negative (Negative) Urine Nitrite Negative (Negative) Ur Leukocyte Esterase Negative (Negative) Independent Interpretation I performed an independent interpretation of an: CT Scan (Left upper extremity CTA:No evidence of active bleeding or vessel injury. Small caliber or diffusely attenuated left radial artery patent to the wrist. Otherwise left upper extremity vessels are normal appearing. The left subclavian artery origin and aortic arch not included in the field of view ) Radiology Impression Discussion of test interpretation with radiology: I have reviewed the radiologist's reading. Discharge Plan Discharge Clinical Impression: Ecchymosis of forearm, Thrombocytopenia Patient Disposition: Home, Self-Care Instructions: Thrombocytopenia (ED), Ecchymosis (ED) Additional Instructions: Your platelet is low avoid taking aspirin or any anti inflammatory medication. Contact Dr. Penaloza's office and make an appointment for further evaluation. Return is the forearm discoloration is getting worse. Prescriptions: No Action furosemide 40 mg tablet 40 mg PO DAILY atorvastatin 20 mg tablet 20 mg PO DAILY methenamine hippurate 1 gram tablet 1 g PO BID cetirizine 10 mg Tablet 10 mg PO DAILY amlodipine 10 mg tablet 10 mg PO DAILY losartan 100 mg Tablet 100 mg PO DAILY latanoprost 0.005 % Drops 1 drp OPHTHALMIC (EYE) BEDTIME buspirone 5 mg Tablet 5 mg PO DAILY ascorbic acid (vitamin C) 1,000 mg Tablet 1,000 mg PO BID lamotrigine 200 mg Tablet 200 mg PO BID polyethylene glycol 3350 [Miralax] 17 gram Powder In Packet 17 g PO BID meloxicam 15 mg Tablet 15 mg PO DAILY psyllium Packet 1 packet PO BID Rx Instructions: mix into at least 8 oz of water or juice before administering levothyroxine 75 mcg Tablet 75 mcg PO DAILY@0600 lorazepam 0.5 mg Tablet 0.5 mg PO DAILY PRN (Reason: Anxiety) omeprazole 20 mg Capsule,Delayed Release(Dr/Ec) 20 mg PO BID@0630,1630 escitalopram oxalate 20 mg Tablet 20 mg PO DAILY multivitamin Tablet 1 tab PO DAILY cholecalciferol (vitamin D3) 10 mcg (400 unit) Tablet 10 mcg PO DAILY buprenorphine HCl 2 mg Tablet, Sublingual 4 mg SUBLINGUAL TID acetaminophen 500 mg Tablet 1,000 mg PO TID PRN (Reason: Pain, Mild) lidocaine 5 % Adhesive Patch,Medicated 3 patch TOPICAL DAILY Rx Instructions: leave on most painful area for up to 12 hrs Lactobacillus acidophilus Tablet,Chewable 2 tab PO BID buspirone 5 mg Tablet 15 mg PO BEDTIME cefuroxime axetil 500 mg tablet 500 mg PO BID 19 Days Qty: 38 0RF oxycodone 5 mg tablet 5 mg PO Q6H PRN (Reason: pain) Qty: 14 0RF Rx Instructions: Partial Fill upon patient request. lorazepam [Ativan] 0.5 mg tablet 0.5 mg PO DAILY PRN (Reason: anxiety) Qty: 14 0RF Referrals: Debi Cisse MD [Primary Care Provider, Medical] Reina Penaloza MD [Physician, Hematology & Oncology] Print Language: Amharic
--- OUTSIDE RECORDS SUMMARY | 2025-04-03 08:12 | XMS_ITS | Patient Health Record ---
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 Name Role Phone Debi Cisse MD Primary Care Provider Unavailab Starla Toro Unavailable [phone] Allergies Allergen (clinical drug ingredient) Drug/Non Drug Allergy documented on EMR Reaction Allergy Type Onset Date Status Shellfish (FN) clams (uncoded) Unknown Allergy Active crab allergenic extract crab (uncoded) Unknown Allergy Active Shellfish (FN) lobster (uncoded) Unknown Allergy Active Shellfish (FN) shrimp (uncoded) Unknown Allergy Active povidone-iodine Betadine swelling Drug Allergy A ctive meperidine Demerol can't remember Drug Allergy A ctive Shrimp Flavor swelling Drug Allergy Act abi enalapril Vasotec mouth breaks out Drug Allergy Active Reason For Referral No Information Medications Medication SIG (Take, Route, Frequency, Duration) Notes Start Date End Date Status Betamethasone Dipropionate 0.05 % 1 application to affected area Externally Once a day; Duration: 14 days Not-Taking Neosporin + Pain Relief Max St 1 % as directed Externally qd; Duration: 5 days 04/18/2013 Not-Taking Topiramate Not-Takin g Mirtazapine 30 MG 1 tablet before bedtime in the evening Orally Once a day; Duration: 30 day(s) Not-Taking LORazepam 0.5 MG 1 tablet at bedtime as needed Orally Once a day Not-Taking Aspirin 81 MG 1 tablet Orally Once a day; Duration: 30 day(s) Not-Taking Hydrocortisone 1 % 1 application to affected area Externally Twice a day; Duration: as needed 10/03/2014 Not-Taking Escitalopram Oxalate 20 MG 1 tablet Oral ly at night Active Zoloft 50 MG 1 tablet Orally Once a day Not-Taking Buprenorphine HCl 2 MG 2 tablets Subling ual five times a day Active zzzCompression Stockings 20-30mm Hg . . .; Duration: . Not-Felisha Baclofen 20 MG 1 tablet Administer without regards to meals as needed Orally Twice a day Active zzzCompression Stockings 20-30mm Hg . . .; Duration: . Not-Felisha Baby Aspirin Active Cranberry Active Biofreeze Active Amlodipine & Diet Manage Prod 5mg Active Atenolol 100 MG 0.5 tablet Orally Twice a day Active Lactulose Not-Taking Hydrocortisone 1 % 1 application to affected area Externally Twice a day to affected areas on feet; Duration: 30 days 02/21/2015 Not-Taking Estradiol Not-Taking Claritin 10 MG 1 tablet Orally Once a day; Duration: 30 day(s) Not-Taking Bumetanide 2 MG 1 tablet Orally Once a day; Duration: 30 day(s) Not-Taking Loprox Not-Taking Ciclopirox Olamine 0.77% external Apply to effected areas twice a day; Duration: 30 days 12/11/2014 Not-xuan Lactobacillus Active Clorazepate Dipotassium 3.75 MCG 1 tablet Orally Once a day Not-Taking lamoTRIgine 200 MG 1 tablet Orally Twic e a day Active Citalopram Hydrobromide 20 MG 1 tablet Orally Once a day; Duration: 30 day(s) Not-Taking Levothyroxine Sodium 75 MCG 1 tablet every morning on an empty stomach Orally Once a day; Duration: 30 day(s) Active Calcium Carbonate 600 MG 1 tablet Orally Four times a day; Duration: 30 day(s) Not-Taking Losartan Potassium 100 MG 1 tablet Orall y Once a day; Duration: 30 day(s) Active Furosemide 40 MG 1 tablet Orally Once a day Active DULoxetine HCl Activ e tylenol Active Triderm 0.1 % 1 application Externally Active tiZANidine HCl Activ e Omeprazole 20 MG 1 capsule Orally Onc e a day; Duration: 30 day(s) Active Methenamine Hippurate Active Diovan 320 MG 1 tablet Orally Once a day; Duration: 30 day(s) Not-Taking MiraLax as directed Orally A ctive Pravastatin Sodium 40 MG 1 tablet Orally Once a day; Duration: 30 day(s) Not-Taking Metamucil Active oxyCODONE HCl 20 MG 0.5 tablet Orally every 6 hrs Not-Taking Multivitamins Active Physical Therapy Cont 3-4x per week for 3-4 weeks . .; Duration: 30 days Not-Taking Meloxicam Active Pramipexole Dihydrochloride Not-Taking Lidocaine Active Nitrofurantoin Monohyd Macro 100 MG 1 capsule with food Orally every 12 hrs Not-Taking Rapaflo 8 MG 1 capsule with a kelsey l Orally Once a day; Duration: 30 day(s) Not-Taking Gabapentin 300 MG Orally Three times a day Not-Taking Lactase 225 MG 1 capsule Orally 4 times per day; Duration: 30 day(s) Not-Taking Fioricet 50-325-40 MG 1 tablet as needed for tension headache Orally every 4 hrs Not-Taking Buprenorphine HCl patch No t-Taking Ciprofloxacin HCl 250 MG 1 tablet Orally every 12 hrs Not-Taking Physical Therapy . . . 2-3x/week; Duration: 3-4 weeks 03/02/2024 Not-Taking Belbuca 900 MCG 1 film Bucally every 12 hrs Not-Taking Ciclopirox Olamine 0.77 % 1 application Externally Twice a day; Duration: 7 days 11/13/2024 Active Nystatin 696743 UNIT/GM 1 application Externally Twice a day; Duration: 30 days 11/13/2024 Active Modafinil 200 MG Oral; Duration: 30 Active Ja Santiagoce . . . .; Duration: . Active Vitamin C 1000 MG Orally twice a day Active Vitamin D3 Active Trimethoprim 100 MG 1 tablet Orally ever y 12 hrs; Duration: 10 day(s) Not-Taking NIFEdipine 90 MG 1 tablet Orally Once a day; Duration: 30 day(s) Not-Taking Immunizations Vaccine Route Administration Date Status Comme nts Influenza Unknown 03/03/2016 Administered Influenza Unknown 03/14/2020 Administered Influenza Unknown 03/27/2021 Administered Influenza Unknown 03/14/2023 Administered Influenza Unknown 02/13/2024 Administered Influenza Unknown 02/20/2025 Administered COVID-19 Pfizer BioNTech Vaccine Unknown 04/08/2021 Administered 1st 07/24/20 2nd 08/14/20 Social History Tobacco Use: Social History Observation Description Date Details (start date - stop date) Never Smoker NA - NA Tobacco use other than smoking: Question Answer Notes Are you an other tobacco user? No Tobacco Control (Standard) Question Answer Notes Tobacco use: Nonsmoker Additional Findings: Tobacco non-user Current no nsmoker AUDIT-C (Standard) Question Answer Notes Did you have a drink containing alcohol in the p ast year? 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 Vital Signs Blood pressure diastolic 80 mm Hg 03/19/2025 Height 5 ft 5 in in 03/19/2025 Blood pressure systolic 122 mm Hg 03/19/2025 Weight 178 lbs 03/19/2025 BMI 29.62 kg/m2 03/19/2025 Procedures Procedure Date Ordered Date Performed Result Body Sit e 69599-ASVMUJD NAIL, 6 OR MORE 05/08/2024 N/A 46619-DYXR SKIN LESIONS, 2 TO 4 05/08/2024 N/A 44016-VQIZTRF NAIL, 6 OR MORE 07/10/2024 N/A 36561-WHGI SKIN LESIONS, 2 TO 4 07/10/2024 N/A 57640-NYFFKBL NAIL, 6 OR MORE 09/11/2024 N/A 89110-YOYR SKIN LESIONS, 2 TO 4 09/11/2024 N/A 44006-PFMMARJ NAIL, 6 OR MORE 11/13/2024 N/A 58166-QEIF SKIN LESIONS, 2 TO 4 11/13/2024 N/A 73533-PITSTBI NAIL, 6 OR MORE 01/15/2025 N/A 77271-EPTR SKIN LESIONS, OVER 4 01/15/2025 N/A 85685-YYQMCHO NAIL, 6 OR MORE 03/19/2025 N/A 30432-XUVA SKIN LESIONS, OVER 4 03/19/2025 N/A Encounters Encounter Location Date Provider Diagnosis [facility] [place] [address] [place] [address] 05/08/2024 Starla Black 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 ; Plantar fasciitis of left foot M72.2 ; Neuropathy due to chemotherapeutic drug G62.0 ; Pain in right toe(s) M79.674 ; Pain in left toe(s) M79.675 ; Tinea unguium B35.1 ; Pain in left foot M79.672 ; Calcaneal spur, left foot M77.32 ; Interstitial myositis of left foot M60.172 ; Bursitis of left foot M77.52 and Achilles tendinitis of left lower extremity M76.[address] [address] 07/10/2024 Starla Black Plantar fasciitis of left foot M72.2 ; Skin ulcer of toe of right foot, limited to breakdown of skin L97.511 ; 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 ; Neuropathy due to chemotherapeutic drug G62.0 ; Tinea unguium B35.1 ; Calcaneal spur, left foot M77.32 ; Interstitial myositis of left foot M60.172 ; Bursitis of left foot M77.52 ; Achilles tendinitis of left lower extremity M76.62 ; Hammertoe of right foot M20.41 ; Pain in right toe(s) M79.674 and Pain in left toe(s) M79.[address] [address] 09/11/2024 Starla Black Neuropathy due to chemotherapeutic drug G62.0 ; Tinea unguium B35.1 ; Pain in left toe(s) M79.675 and Pain in right toe(s) M79.[address] [address] 11/13/2024 Starla Black Neuropathy due to chemotherapeutic drug G62.0 ; Tinea unguium B35.1 ; Pain in left toe(s) M79.675 ; Pain in right toe(s) M79.674 and Tinea pedis of both feet B35.[address] [address] 01/15/2025 Starla Black Neuropathy due to chemotherapeutic drug G62.0 ; Tinea unguium B35.1 ; Pain in left toe(s) M79.675 ; Pain in right toe(s) M79.674 and Tinea pedis of both feet B35.3 [facility] [address] [address] 03/19/2025 Starla Black Neuropathy due to chemotherapeutic drug G62.0 ; Tinea unguium B35.1 ; Pain in left toe(s) M79.675 and Pain in right toe(s) M79.674 [facility] [address] [address] 04/04/2024 Starla Black [facility] [place] [address] [facility] [address] [place] [address] 04/27/2024 Starla Black [facility] [address] [address] 05/08/2024 Starla Black [facility] [address] [address] 07/04/2024 Starla Black [facility] [address] [address] 07/10/2024 Starla Black [facility] [address] [address] 07/10/2024 Starla Black [facility] [address] [address] 09/11/2024 Starla Black [facility] [address] [address] 11/13/2024 Starla Black [facility] [address] [address] 03/19/2025 Starla Black Assessments Encounter Date Diagnosis (ICD Code) Assessment Notes Treatment Notes Treatment Clinical Notes Section Notes 05/08/2024 Plantar fasciitis of left foot (ICD-10 - M72.2) 05/08/2024 Acquired equinovarus deformity of left foot (ICD-10 - M21.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) 07/10/2024 Plantar fasciitis of left foot (ICD-10 - M72.2) 07/10/2024 Skin ulcer of toe of right foot, limited to breakdown of skin (ICD-10 - L97.511) 09/11/2024 Tinea unguium (ICD-10 - B35.1) 09/11/2024 Neuropathy due to chemotherapeutic drug (ICD-10 - G62.0) 11/13/2024 Neuropathy due to chemotherapeutic drug (ICD-10 - G62.0) 01/15/2025 Tinea unguium (ICD-10 - B35.1) 01/15/2025 Neuropathy due to chemotherapeutic drug (ICD-10 - G62.0) 03/19/2025 Tinea unguium (ICD-10 - B35.1) 03/19/2025 Neuropathy due to chemotherapeutic drug (ICD-10 - G62.0) 03/19/2025 Pain in left toe(s) (ICD-10 - M79.675) 01/15/2025 Pain in left toe(s) (ICD-10 - M79.675) 11/13/2024 Tinea unguium (ICD-10 - B35.1) 09/11/2024 Pain in left toe(s) (ICD-10 - M79.675) 07/10/2024 Acquired equinovarus deformity of left foot (ICD-10 - M21.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) 05/08/2024 Neuropathy due to chemotherapeutic drug (ICD-10 - G62.0) 05/08/2024 Pain in right toe(s) (ICD-10 - M79.674) 07/10/2024 Neuropathy due to chemotherapeutic drug (ICD-10 - G62.0) 09/11/2024 Pain in right toe(s) (ICD-10 - M79.674) 11/13/2024 Pain in left toe(s) (ICD-10 - M79.675) 01/15/2025 Pain in right toe(s) (ICD-10 - M79.674) 03/19/2025 Pain in right toe(s) (ICD-10 - M79.674) 01/15/2025 Tinea pedis of both feet (ICD-10 - B35.3) 11/13/2024 Pain in right toe(s) (ICD-10 - M79.674) 05/08/2024 Pain in left toe(s) (ICD-10 - M79.675) 07/10/2024 Tinea unguium (ICD-10 - B35.1) 07/10/2024 Calcaneal spur, left foot (ICD-10 - M77.32) 05/08/2024 Tinea unguium (ICD-10 - B35.1) 11/13/2024 Tinea pedis of both feet (ICD-10 - B35.3) 07/10/2024 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.172) 05/08/2024 Pain in left foot (ICD-10 - M79.672) 05/08/2024 Calcaneal spur, left foot (ICD-10 - M77.32) 07/10/2024 Bursitis of left foot (ICD-10 - M77.52) 07/10/2024 Achilles tendinitis of left lower extremity (ICD-10 - M76.62) 05/08/2024 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.172) 05/08/2024 Bursitis of left foot (ICD-10 - M77.52) 07/10/2024 Hammertoe of right foot (ICD-10 - M20.41) 07/10/2024 Pain in right toe(s) (ICD-10 - M79.674) 05/08/2024 Achilles tendinitis of left lower extremity (ICD-10 - M76.62) 07/10/2024 Pain in left toe(s) (ICD-10 - M79.675) Plan Of Treatment Pending Test Test Name Order Date X ray : Ankle, left 2V 03/26/2011 X ray : Ankle, left 3V 12/22/2012 X ray : Foot, left 2V 03/26/2011 X ray : Foot, right 2V 10/12/2011 X ray : Foot, right 2V 11/11/2011 X ray : Foot, left 3V 02/20/2011 05884-RSMXQQL NAIL, 6 OR MORE 02/09/2011 17740-RDDTFCT NAIL, 6 OR MORE 05/13/2011 78710-HQZSPES NAIL, 6 OR MORE 12/23/2011 76637-DBLXSWS NAIL, 6 OR MORE 11/11/2011 95797-PXGXAZW NAIL, 6 OR MORE 07/23/2011 88576-QTZJTTF NAIL, 6 OR MORE 10/12/2011 86914-ISSQTEI NAIL, 6 OR MORE 07/20/2012 20180-ONPDRUF NAIL, 6 OR MORE 03/18/2012 87162-NBDVQAC NAIL, 6 OR MORE 10/03/2012 61859-TBKOJGC NAIL, 6 OR MORE 01/19/2013 35068-GEPKTKX NAIL, 6 OR MORE 04/05/2013 92389-KRQLOCD NAIL, 6 OR MORE 12/22/2012 95122-NEGDWPA NAIL, 6 OR MORE 04/18/2013 38312-VWXCIUR NAIL, 6 OR MORE 06/15/2013 47607-RWWHENM NAIL, 6 OR MORE 08/21/2013 05399-HLMSAEZ NAIL, 6 OR MORE 12/29/2013 00520-AXVISPS NAIL, 6 OR MORE 03/12/2014 18271-LJFWOQO NAIL, 6 OR MORE 05/21/2014 02880-EENHMZR NAIL, 6 OR MORE 07/26/2014 79504-OVQQOHS NAIL, 6 OR MORE 10/03/2014 66730-ORXZRPZ NAIL, 6 OR MORE 12/11/2014 92215-XDHYWOU NAIL, 6 OR MORE 02/21/2015 49694-GKJJKTA NAIL, 6 OR MORE 04/29/2015 57029-XPEXSSF NAIL, 6 OR MORE 07/18/2015 31658-NGRVWHI NAIL, 6 OR MORE 09/23/2015 83531-LVMOJYI NAIL, 6 OR MORE 11/28/2015 53792-EDSIZNE NAIL, 6 OR MORE 02/06/2016 83170-ZSZDWEG NAIL, 6 OR MORE 04/13/2016 84066-EELMHOU NAIL, 6 OR MORE 06/18/2016 35828-LWYHYJJ NAIL, 6 OR MORE 08/20/2016 19876-CTAWUTB NAIL, 6 OR MORE 10/22/2016 92576-WHSBLKW NAIL, 6 OR MORE 12/24/2016 24481-IDBEUPV NAIL, 6 OR MORE 02/25/2017 04278-FQHWKSR NAIL, 6 OR MORE 04/29/2017 43186-NZIPHBR NAIL, 6 OR MORE 07/01/2017 00644-YPVCRUC NAIL, 6 OR MORE 09/02/2017 49717-EUMWOAO NAIL, 6 OR MORE 11/11/2017 07620-TVLQKSR NAIL, 6 OR MORE 01/13/2018 32027-TWWDBXD NAIL, 6 OR MORE 03/17/2018 49529-YXDBZHY NAIL, 6 OR MORE 05/19/2018 26821-FUZWLGR NAIL, 6 OR MORE 07/21/2018 15071-HFTTZGK NAIL, 6 OR MORE 09/26/2018 33196-IXACGYQ NAIL, 6 OR MORE 11/28/2018 86593-GRUAABZ NAIL, 6 OR MORE 01/30/2019 85400-JCIZXIH NAIL, 6 OR MORE 04/06/2019 43570-ABFKDAD NAIL, 6 OR MORE 06/15/2019 46956-WZHJRMK NAIL, 6 OR MORE 08/17/2019 00649-XKFBKLD NAIL, 6 OR MORE 10/26/2019 30192-WFZMUOW NAIL, 6 OR MORE 12/28/2019 02484-KUXRYEL NAIL, 6 OR MORE 02/29/2020 26943-XHTQUYC NAIL, 6 OR MORE 05/02/2020 07376-GFGOYSX NAIL, 6 OR MORE 07/04/2020 21187-FMMWDEW NAIL, 6 OR MORE 09/05/2020 99498-FEIPBRY NAIL, 6 OR MORE 11/14/2020 17399-KWKGLXN NAIL, 6 OR MORE 01/16/2021 50135-OUGQKCV NAIL, 6 OR MORE 03/27/2021 14651-KVQGFGU NAIL, 6 OR MORE 05/29/2021 04869-WTRVVWQ NAIL, 6 OR MORE 08/07/2021 62245-WFRPFWQ NAIL, 6 OR MORE 10/09/2021 99687-STLAFPM NAIL, 6 OR MORE 12/11/2021 82862-OWEDIYP NAIL, 6 OR MORE 02/12/2022 54718-LPFVNVU NAIL, 6 OR MORE 04/23/2022 72131-COXIMIV NAIL, 6 OR MORE 06/25/2022 80306-GILSKKI NAIL, 6 OR MORE 08/31/2022 77139-EXCAJRP NAIL, 6 OR MORE 11/02/2022 07646-SAQFCBI NAIL, 6 OR MORE 02/04/2023 28407-LUYMFXU NAIL, 6 OR MORE 08/19/2023 01108-LAYKAUL NAIL, 6 OR MORE 10/25/2023 05932-KGUPCPK NAIL, 6 OR MORE 12/27/2023 78203-CFPQQWY NAIL, 6 OR MORE 03/02/2024 74194-EDXKCTU NAIL, 6 OR MORE 05/08/2024 68846-AZVPIPA NAIL, OR MORE 07/10/2024 27978-KEZCOZO NAIL, OR MORE 09/11/2024 19745-ENQAPNK NAIL, 6 OR MORE 11/13/2024 92915-UBVVXIC NAIL, 6 OR MORE 01/15/2025 92730-XWVOWCY NAIL, 6 OR MORE 03/19/2025 21557-Xgms Destruction, 1-14 07/26/2014 07400-Xrgogjvf Plate 10/03/2014 75556-Neuvevtt Plate 09/23/2015 27329-Mjxjbkcm Plate 02/21/2015 28905-Djmvhqez Plate 12/11/2014 21776-Eqgwztep Plate 02/25/2017 40086-Ubpyoxjl Plate 08/20/2016 29403-Tjvdmseb Plate 06/18/2016 13790-Ryjpsxmn Plate 06/15/2019 39504-Swhviywy Plate 08/04/2018 34735-Vchpmgzn Plate 01/13/2018 40717-Gijtkfmo Plate 07/21/2018 14139-Cbernjac Plate 12/24/2016 64944-Fczlxisr Plate 09/02/2017 47452-Osqcoemv Plate 12/29/2013 82176-Jfyjovpy Plate 08/21/2013 89361-Cvnfvquf Plate 09/22/2012 20937-Lolpehxd Plate 02/25/2012 29102-Fdrhpxnn Plate 03/18/2012 39064-Zpixbtsw Plate 07/20/2012 32768-Wcxvygdx Plate 08/29/2012 70325-Tljhmuvv Plate 02/09/2011 07169-Dnddbofp Plate 05/29/2021 27758-Zcadfzxb Plate 01/16/2021 41842-Slukvfdx Plate 09/05/2020 48526-Eoidyshi Plate 02/29/2020 02796-Dirillbc Plate Each Additional 10/2020 15738-Oqfbywcg Plate Each Additional 26254-Ecmqnktp Plate Each Additional 37656-VJW 09/07/2012 35339- Debride <25 sq cm 03/18/2012 70958- Debride <25 sq cm 07/23/2011 69967- Debride <25 sq cm 05/13/2011 93180- Debride <25 sq cm 11/02/2012 50393- Debride <25 sq cm 06/15/2013 45538- Debride <25 sq cm 12/11/2014 69334- Debride <25 sq cm 02/21/2015 81169- Debride <25 sq cm 04/18/2013 19802- Debride <25 sq cm 10/03/2014 65867- Debride <25 sq cm 03/12/2014 71183- Debride <25 sq cm 08/25/2018 04208- Debride <25 sq cm 08/04/2018 97059- Debride <25 sq cm 12/11/2021 71819- Debride <25 sq cm 09/11/2021 99029- Debride <25 sq cm 10/09/2021 78270-YFLIVBI SKIN/TISSUE 10/03/2012 39450-NDQZJHK SKIN/TISSUE 09/22/2012 99765 I&D ABSCESS- SIMPLE,SINGLE 012 17409 I&D ABSCESS- SIMPLE,SINGLE 011 61360 I&D ABSCESS- SIMPLE,SINGLE 011 51578 I&D ABSCESS- SIMPLE,SINGLE 011 61373 I&D ABSCESS- SIMPLE,SINGLE 013 05707 I&D ABSCESS- SIMPLE,SINGLE 013 77772 I&D ABSCESS- SIMPLE,SINGLE 013 62678 I&D ABSCESS- SIMPLE,SINGLE 013 38875 I&D ABSCESS- SIMPLE,SINGLE 013 07621 I&D ABSCESS- SIMPLE,SINGLE 017 29117 I&D ABSCESS- SIMPLE,SINGLE 022 94371- I&D ABSCESS-COMPLICATED,MULTI 10/2012 52120- I&D ABSCESS-COMPLICATED,MULTI 46728- I&D ABSCESS-COMPLICATED,MULTI 04/2013 61081- I&D ABSCESS-COMPLICATED,MULTI 01/2013 92005- I&D ABSCESS-COMPLICATED,MULTI 14549- I&D ABSCESS-COMPLICATED,MULTI 05226- I&D ABSCESS-COMPLICATED,MULTI 33195- I&D ABSCESS-COMPLICATED,MULTI , J0702- INJECT TENDON ORIGIN/INSER T 05/13/2011, J0702- INJECT TENDON ORIGIN/INSER T 03/26/2011, J0702- INJECT TENDON ORIGIN/INSER T 04/09/2011, J0702- INJECT TENDON ORIGIN/INSER T 12/01/2012, J0702- INJECT TENDON ORIGIN/INSER T 01/19/2013, J0702- INJECT TENDON ORIGIN/INSER T 12/22/2012, J0702- INJECT TENDON ORIGIN/INSER T 04/18/2013, J0702- INJECT TENDON ORIGIN/INSER T 04/05/2013, J0702- INJECT or DRAIN, JOINT/BUR SA 04/05/2013, J0702- INJECT or DRAIN, JOINT/BUR SA 04/18/2013, J0702- INJECT or DRAIN, JOINT/BUR SA 12/22/2012, J0702- INJECT or DRAIN, JOINT/BUR SA 01/19/2013, J0702- INJECT or DRAIN, JOINT/BUR SA 12/01/2012, J0702- INJECT or DRAIN, JOINT/BUR SA 03/26/2011, J0702- INJECT or DRAIN, JOINT/BUR SA 05/13/2011, J0702- INJECT or DRAIN, JOINT/BUR SA 04/09/2011 19899-YARG SKIN LESIONS, OVER 4 04/29/20 17 72100-HYQJ SKIN LESIONS, OVER 4 02/26/20 17 08544-MIXT SKIN LESIONS, OVER 4 08/21/19 17 22407-WQVF SKIN LESIONS, OVER 4 10/23/19 17 21159-DZUE SKIN LESIONS, OVER 4 12/25/19 17 35713-LBGH SKIN LESIONS, OVER 4 09/27/19 19 86142-SSYQ SKIN LESIONS, OVER 4 01/31/20 19 90234-LJVB SKIN LESIONS, OVER 4 11/29/19 19 59678-AECQ SKIN LESIONS, OVER 4 06/15/19 20 17916-JWRV SKIN LESIONS, OVER 4 04/06/20 19 74833-LCJE SKIN LESIONS, OVER 4 10/26/19 20 61746-CKEN SKIN LESIONS, OVER 4 08/17/19 20 72282-XGIB SKIN LESIONS, OVER 4 07/01/19 18 53073-UZJK SKIN LESIONS, OVER 4 01/14/20 31546-SCVZ SKIN LESIONS, OVER 4 09/03/19 06882-UQTC SKIN LESIONS, OVER 4 11/12/19 18 80592-MRTF SKIN LESIONS, OVER 4 07/21/19 19 67053-WGIC SKIN LESIONS, OVER 4 05/19/20 65085-FYEP SKIN LESIONS, OVER 4 03/17/20 20910-BBOF SKIN LESIONS, OVER 4 09/06/19 34433-PWGV SKIN LESIONS, OVER 4 11/15/19 35605-FINP SKIN LESIONS, OVER 4 02/29/20 79274-GTCP SKIN LESIONS, OVER 4 12/28/19 66974-EIIT SKIN LESIONS, OVER 4 07/04/19 39964-MKEV SKIN LESIONS, OVER 4 05/02/20 04630-GSKD SKIN LESIONS, OVER 4 03/19/20 58925-TIDT SKIN LESIONS, OVER 4 01/16/20 08513-ROSE SKIN LESIONS, 2 TO 4 11/14/19 58171-NJFR SKIN LESIONS, 2 TO 4 09/12/19 12581-XUEC SKIN LESIONS, 2 TO 4 07/10/19 44140-LGJM SKIN LESIONS, 2 TO 4 05/08/20 37489-FRYY SKIN LESIONS, 2 TO 4 03/02/20 24 40739-NVQR SKIN LESIONS, 2 TO 4 12/27/19 24 78359-PEPX SKIN LESIONS, 2 TO 4 10/25/19 65596-ONHU SKIN LESIONS, 2 TO 4 08/19/19 74087-EAYK SKIN LESIONS, 2 TO 4 02/05/20 67489-ZDZC SKIN LESIONS, 2 TO 4 11/03/19 91709-EJZP SKIN LESIONS, 2 TO 4 09/01/19 83618-ZNHL SKIN LESIONS, 2 TO 4 06/25/19 31110-PGFW SKIN LESIONS, 2 TO 4 04/23/20 20704-XHLT SKIN LESIONS, 2 TO 4 01/17/20 15083-SQCY SKIN LESIONS, 2 TO 4 10/10/19 71086-PPHO SKIN LESIONS, 2 TO 4 12/12/19 32286-JLOB SKIN LESIONS, 2 TO 4 02/13/20 24667-BGHY SKIN LESIONS, 2 TO 4 08/07/19 29726-TWPU SKIN LESIONS, 2 TO 4 03/27/20 21 59965-HYOO SKIN LESIONS, 2 TO 4 05/29/20 21 89314, M5641-TDUNS/INJECT, JOINT/BURSA 0 08/29/2012 65474- Short Leg Cast 12/01/2012 Next Appt Details Provider Name:Starla Johnson , 05/21/2025 01:30:00 PM, [address] [place] [address], [phone], Provider Name:Starla Johnson , 07/23/2025 01:30:00 PM, [address] [place] [address], [phone], Insurance Providers Payer Name Payer Address Payer Phone Subscriber Number Group Number Insured Name Patient Relationship to Insured Coverage Start Date Coverage End Date [employer] [address] [place] [address] [id number] Celi Nina Sr Self - patient is the insured [address] [place] [address] [address] [place] [id number] Celi Nina Sr Self - patient is the insured Medical (General) History Medical History History ICD Code transfusions thyroid disorder hypertension cancer back, hip, knee pain Arthritis hepatitis A Glaucoma Bladder stone in duct of the liver Other hammer toe(s) (acquired), left mac t M20.42 Primary osteoarthritis, 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 Unsteady gait R26.81 Equinus contracture of left ankle M24.57 2 Plantar fasciitis of left foot M72.2 Hammertoe of right foot M20.41 Surgical History Surgery Date(Month/Year) right hand surgery 06/25/2016 left hand surgery 12/25/2014 nicole removed from femur 04/03/2014 cholecystectomy 1999 pelvis 1987 hysterectomy 1973 tonsillectomy 1952 Hospitalization History Reason Date(Month/Year) [facility] [place]- Fell 2024 [facility] [place]- Severe Pain - Debbie Moctezumaor for a mon th 12/12/22 [facility] [place]- UTI 11/2022 [facility] [place]- UTI 11/2022 [facility] [place]- stroke 10/25/22 [facility] leg 2013
[2025-04-03 09:45] LABS: Hematocrit 35.4 % (37.0-47.0); Hemoglobin 11.8 g/dl (12.0-16.0); Imm Gran Abs Auto 0.01 X10*3/uL (0.00-0.03); Imm Gran Pct Auto 0.3 % (0.0-0.4); Lymphocytes Absolute Auto 0.6 X10*3/uL (1.2-4.9); MANUAL DIFF FLAG NO; Mean Corpuscular HGB Conc 33.3 g/dl (31.0-35.0); Mean Corpuscular Hemoglobin 30.6 pg (27.0-33.0); Mean Corpuscular Volume 91.9 fL (80.0-98.0); NRBC Abs Auto 0.000 X10*3/uL (0.0-0.012); NRBC Pct Auto 0.0 /100WBC (0.0-0.2); Platelet Count 131 X10*3/uL (160-400); Red Blood Count 3.85 X10*6/uL (4.20-5.50); White Blood Count 4.0 X10*3/uL (4.8-10.8)
[2025-04-03 09:52] LABS: INTERNATIONAL NORM RATIO 1.0 (0.9-1.1); Prothrombin Time 11.2 SEC (10.9-12.4)
[2025-04-03 09:54] LABS: Partial Thromboplastin Time 29.4 SEC (26.7-34.1)
[2025-04-03 10:05] LABS: Anion Gap 11 (12-20); Blood Urea Nitrogen 11 mg/dL (9-16); Calcium 9.2 mg/dL (8.4-10.2); Carbon Dioxide 29 mmol/L (22-29); Chloride 99 mmol/L (96-108); Creatinine Clr Calc Pharmacy 76.2; Estimated Glomerular Filt Rate > 60; Potassium 4.1 mmol/L (3.3-5.1); Sodium 135 mmol/L (135-145)
[2025-04-03] MEDS: iohexoL 350 MG/ML 100 ML INFUS..BTL IV (10:37)
[2025-04-03 10:51] VITALS: BP 152/61; PULSE 59; RESP 14; TEMP 36.2; O2SAT 94
[2025-04-03 11:21] LABS: Appearance Urine Clear; Glucose Urine UA Negative (Negative); PH 8.5 (5.0-9.0); Specific Gravity - Urine 1.015 (1.005-1.025)
--- NOTE | 2025-04-03 12:00 | PC.NURSE ---
Pt conditition remains unchanged. LUE is as it was at arrival. Pt has been up to bedside commode various times and requires 1-2 assist. LLE is immobile.
[2025-04-03 12:49] VITALS: BP 157/55; PULSE 51; RESP 16; O2SAT 96
[2025-04-03 15:11] VITALS: BP 157/55; PULSE 51; RESP 16; TEMP 36.3; O2SAT 96
== END 2025-04-03 15:11 | disposition home or self-care (01) ==
PROVIDERS: Emergency Provider Emergency Medicine; PCP Family Medicine
DX: R58 Hemorrhage, not elsewhere classified (principal); D69.6 Thrombocytopenia, unspecified; M79.89 Other specified soft tissue disorders
CPT/HCPCS: 36415; 73206; 80048; 81003; 82550; 85025; 85610; 85730; 99284; 99285; Q9967

== ENCOUNTER → 2025-04-03 07:56 | Outpatient (BNV) | payer MEDICARE, OTHER, SELFPAY | PROVIDERS: Emergency Provider Emergency Medicine; PCP Family Medicine; Visit Provider Radiology Diagnostic Radiology | DX: S40.022A Contusion of left upper arm, initial encounter (principal); R22.32 Localized swelling, mass and lump, left upper limb | CPT/HCPCS: 73206 ==

== ENCOUNTER 2025-04-07 17:47 | Inpatient (IN) | payer OTHER, SELFPAY ==
[2025-04-07] VITALS (7 sets, daily range): BP systolic 107–152; BP diastolic 47–78; PULSE 49–62; RESP 8–14; TEMP 35.6–36.8; O2SAT 94–100; BMI 32.0
--- NOTE | ~2025-04-07 | MR_ITS ---
CLINICAL HISTORY: speech difficulty MRI Brain Without Contrast: Comparison: CT 04/07/2025. MRI 10/22/2022 Findings: No restricted diffusion. Cortical sulci are prominent There are few scattered periventricular focal areas of white matter degeneration due to microangiopathy. Basal ganglia are unremarkable Mass effect: No shift in midline structures Intracranial bleeding: No intraparenchymal bleeding or abnormal extra axial blood fluid collections Pituitary: Normal in size Visualized sinuses: There is right maxillary sinus mucosal thickening Orbital structures: Unremarkable Calvarium: There is no abnormal meningeal thickening or nodularity Impression: Chronic involutional volume loss with no acute findings. This document has been electronically signed by: Alan Becerra MD on 04/08/2025 16:03:29
--- NOTE | ~2025-04-07 | CT_ITS ---
CLINICAL HISTORY: Stroke Protocol CTA HEAD, bolus contrast injection. 3D reconstructions and MPRs: Comparison: None Findings: Right Carotid Siphon: No stenosis. Right Anterior Cerebral Artery: A1 and A2 segments are unremarkable. There is peripheral cortical enhancement. Right Middle Cerebral Artery: M1 and M2 segments are unremarkable. There is peripheral cortical enhancement. Right Posterior Cerebral Artery: P1 and P2 segments are unremarkable. There is peripheral enhancement. Left Carotid Siphon: Calcified plaque. No stenosis. Left Anterior Cerebral Artery: A1 and A2 segments are unremarkable. There is peripheral cortical enhancement. Left Middle Cerebral Artery: M1 and M2 segments are unremarkable. There is peripheral cortical enhancement. Left Posterior Cerebral Artery: P1 and P2 segments are unremarkable. There is peripheral cortical enhancement. Basilar Artery: Unremarkable. Venous drainage: Unremarkable. Impression: No stenosis. No large vessel occlusion. No signs of aneurysm. No signs of arterial venous malformation. CTA Neck, bolus contrast injection, 3D reconstructions and MPRs: Comparison: None Findings: Soft tissues of the neck are unremarkable. Superior aorta and branch vessels are unremarkable. Right carotid: No stenosis. Right vertebral: No stenosis. Left Carotid: Calcified bifurcation plaque with no stenosis. Left Vertebral: No stenosis. Impression: No stenosis. No aneurysm or dissection. This document has been electronically signed by: Alan Becerra MD on 04/07/2025 18:54:55
--- NOTE | ~2025-04-07 | XR_ITS ---
CLINICAL HISTORY: Stroke Protocol 1 view chest x-ray. Comparison: 04/04/2023 Findings: Heart size is normal. Pulmonary vasculature is normal. No acute fracture. Impression: Mild chronic central large airway inflammatory thickening Lungs are clear. This document has been electronically signed by: Alan Becerra MD on 04/07/2025 18:43:35
--- NOTE | ~2025-04-07 | CT_ITS ---
CLINICAL HISTORY: Stroke Protocol CT Head Without Contrast: Comparison: CT/SR - CT HEAD WITHOUT IV CONTRAST - 10/21/2022 12:45 PM EDT MRI 10/22/2022 Findings: Cortical sulci and cisterns are prominent Basal ganglia are unremarkable .Stable remote infarct hypodensity involving anterior limb of the right internal capsule not markedly changed from 10/21/2022 No shift in midline structures No intraparenchymal bleeding or abnormal extra-axial blood fluid collections Normal pituitary size There is partially calcified soft tissue density filling the right maxillary sinus Unremarkable orbital structures No depressed fractures Impression: Chronic involutional volume loss and small remote right internal capsule infarct. No acute findings. This document has been electronically signed by: Alan Becerra MD on 04/07/2025 18:30:05
--- NOTE | 2025-04-07 17:58 | ECG_ITS ---
Test Reason : stroke protocal Blood Pressure : */* mmHG Vent. Rate : 57 BPM Atrial Rate : 57 BPM P-R Int : 202 ms QRS Dur : 88 ms QT Int : 438 ms P-R-T Axes : 55 -15 33 degrees QTcB Int : 426 ms Sinus bradycardia Septal infarct (cited on or before 04-Apr-2023) Abnormal ECG When compared with ECG of 04-Apr-2023 05:17, Nonspecific T wave abnormality now evident in Inferior leads Referred By: Mckayla Rosario Electronically Signed By: ALBIN PARRA MD
--- NOTE | 2025-04-07 18:00 | ED.NEUROSD ---
HPI - Neuro Symptoms/Deficit General Chief Complaint: Stroke Stated Complaint: Stroke Alert? A&Ox2, slurred speech, AMS Time Seen by Provider: 04/07/25 17:56 History of Present Illness HPI Narrative: Patient is an 79-year-old female presents today with having last known well time about 230 at the time patient was speaking with her daughter. Since then patient has noticed some change in her speech. Patient seems like it is more difficult to get words out. Patient denies any fever chills. Denies any new focal weakness. Has baseline left lower extremity weakness. The no chest pain there is no arm weakness there is no coordination that is off. Patient is from home. There is no diaphoresis. Related Data Home Medications ?Medication ?Instructions ?Recorded ?Confirmed Lactobacillus acidophilus 2 tab PO BID 10/21/22 12/15/22 acetaminophen 500 mg tablet 1,000 mg PO TID PRN Pain, Mild 10/21/22 12/15/22 amlodipine 10 mg tablet 10 mg PO DAILY 10/21/22 12/15/22 ascorbic acid (vitamin C) 1,000 mg 1,000 mg PO BID 10/21/22 12/15/22 tablet atorvastatin 20 mg tablet 20 mg PO DAILY 10/21/22 12/15/22 buprenorphine HCl 2 mg sublingual 4 mg sublingual TID 10/21/22 12/15/22 tablet buspirone 5 mg tablet 5 mg PO DAILY 10/21/22 12/15/22 cetirizine 10 mg tablet 10 mg PO DAILY 10/21/22 12/15/22 cholecalciferol (vitamin D3) 10 10 mcg PO DAILY 10/21/22 12/15/22 mcg (400 unit) tablet escitalopram oxalate 20 mg tablet 20 mg PO DAILY 10/21/22 12/15/22 furosemide 40 mg tablet 40 mg PO DAILY 10/21/22 12/15/22 lamotrigine 200 mg tablet 200 mg PO BID 10/21/22 12/15/22 latanoprost 0.005 % eye drops 1 drp ophthalmic (eye) BEDTIME 10/21/22 12/15/22 levothyroxine 75 mcg tablet 75 mcg PO DAILY@0600 10/21/22 12/15/22 lidocaine 5 % topical patch 3 patch topical DAILY 10/21/22 12/15/22 lorazepam 0.5 mg tablet 0.5 mg PO DAILY PRN Anxiety 10/21/22 12/15/22 losartan 100 mg tablet 100 mg PO DAILY 10/21/22 12/15/22 meloxicam 15 mg tablet 15 mg PO DAILY 10/21/22 12/15/22 methenamine hippurate 1 gram tablet 1 g PO BID 10/21/22 12/15/22 multivitamin 1 tab PO DAILY 10/21/22 12/15/22 omeprazole 20 mg capsule,delayed 20 mg PO BID@0630,1630 10/21/22 12/15/22 release polyethylene glycol 3350 17 gram 17 g PO BID 10/21/22 12/15/22 oral powder packet (Miralax) psyllium 1 packet PO BID 10/21/22 12/15/22 buspirone 5 mg tablet 15 mg PO BEDTIME 11/23/22 12/15/22 Previous Rx's ?Medication ?Instructions ?Recorded cefuroxime axetil 500 mg tablet 500 mg PO BID 19 days #38 tabs 12/14/22 lorazepam 0.5 mg tablet (Ativan) 0.5 mg PO DAILY PRN anxiety #14 12/17/22 tabs oxycodone 5 mg tablet 5 mg PO Q6H PRN pain #14 tabs 12/17/22 Allergies Allergy/AdvReac Type Severity Reaction Status Date / Time atropine (From ) Allergy Unknown Verified 04/07/25 18:19 clams Allergy Unknown Verified 04/07/25 18:19 crab Allergy Unknown Verified 04/07/25 18:19 enalaprilat (From Vasotec) Allergy Blister Verified 04/07/25 18:19 hyoscyamine (From ) Allergy Unknown Verified 04/07/25 18:19 phenobarbital Allergy Unknown Verified 04/07/25 18:19 scopolamine (From ) Allergy Unknown Verified 04/07/25 18:19 shellfish derived Allergy Unknown Verified 04/07/25 18:19 Sulfa (Sulfonamide Allergy Unknown Verified 04/07/25 18:19 Antibiotics) Review of Systems Review of Systems: Positive left leg weakness that is chronic Not on blood thinners. Not on Coumadin not on Xarelto not on Eliquis Yes all other systems are reviewed and are negative PMFSH Past Medical History Attestation statement: The following information was validated with the patient. Medical History Lumbar pain E coli bacteremia Acute hip pain Left arm weakness Anxiety GERD (gastroesophageal reflux disease) Peripheral neuropathy CARMEN on CPAP Lymphoma Resting tremor Restless leg syndrome Recurrent UTI Urinary incontinence Hyperlipidemia Hypothyroidism Hypertension Surgical History S/P radiation therapy Social History Social History Household Members: None Housing: Other Housing Other:: senior housing Do you presently have visiting nurse or other home services: Yes Alcohol intake: never Patient Tobacco Use Status: Never used Tobacco Smoked in Last 30 Days: No Use of substances other than those prescribed or required for medical reasons: No Advance Directives: No Advance Directives Information Provided: No Do you have a plan to hurt others: No Plan service: No Current occupational status: retired Physical Exam Exam: Exam: Appearance: Alert. Oriented X3. No acute distress. Eyes: Pupils equal, round and reactive to light. ENT: Pharynx normal. Neck: Normal inspection. Neck supple. No lymph nodes noted. No crepitus CVS: Normal heart rate and rhythm. Pulses normal. Normal S1 and S2 Respiratory: No respiratory distress. Breath sounds normal. No Wheezing. No rales Abdomen: Soft and nontender. No rigidity. No distention. good BS x4 Skin: Skin warm and dry. Normal skin color. Normal skin turgor. Extremities: Positive left lower extremity weakness. Can not lift up against gravity. There is swelling there. 2+ edema. Distal pulses intact. Sensation intact upper extremity has good hand grasp. The right lower extremity has good movement. Able to lift up against gravity for for 5 seconds. Neuro: Oriented X 3. No motor deficit. No sensory deficit. Moving all extermities. No slurred speech Vital Signs: Vital Signs: Last Vital Signs Temp 96.1 F L 04/07/25 21:58 Pulse 52 04/07/25 21:58 Resp 10 L 04/07/25 21:58 BP 152/51 H 04/07/25 21:58 Pulse Ox 100 04/07/25 21:58 O2 Del Method Nasal Cannula 04/07/25 21:58 O2 Flow Rate 1 04/07/25 21:58 BMI result Body Mass Index 32.0 Medications Administered Generic Name Dose Route Start Last Admin Trade Name Freq PRN Reason Stop Dose Admin Enoxaparin Sodium 40 mg 04/07/25 21:30 04/07/25 22:49 Enoxaparin Sodium 40 Mg/0.4 Ml Syringe SUBCUT 40 mg Q24H CHEO Administration Discontinued Medications Generic Name Dose Route Start Last Admin Trade Name Freq PRN Reason Stop Dose Admin Iohexol 100 ml 04/07/25 18:06 04/07/25 18:09 Iohexol 350 Mg/Ml 100 Ml Infus..Btl IV 04/07/25 18:07 70 ml ONCE ONE Administration Medical Decision Making Medical Decision Making MDM Narrative: Patient is 79 years old presented initially for a possible fall. Patient was noted to have slurred speech. The slurred speech seems to be last normal at 230 in the afternoon. Patient arrived at 06:30. There was question extremity weakness earlier. The symptom has already improved by the time she got here. We did a CT head and CTA under a stroke alert. The CT head was read as negative. I discussed the case with the radiology team. I also noted the CTA angio was negative for any large vessel occlusions. Patient's electrolytes came back. Sugar was okay electrolyte was okay who were in the process of trying to get the patient admitted nursing staff told me that she was very sleepy. We obtain a urine it was grossly negative there is no signs of infection. Her left leg was always weak. But other than that her neurological exam was grossly intact. As patient became more lethargic at went back and recheck on patient. Very difficult to arouse. Although with strong sternal rub she would wake up. When asked she would answer simple questions and then fall back to sleep. I did a blood gas. It showed a pH that was normal with a pCO2 that is elevated at 60. PaO2 was elevated as patient was on 1 L of oxygen. This Russ chronic CO2 retention there is no acute component. I did attempt to contact the intensive care unit about possibly observing her they are given the mental status. They came down and felt patient is more appropriate for the floor as they tried to arouse her she did wake up she did answer simple questions. I also consulted the hospitalist team. Patient will require admission for TIA/CVA. Also the sleepiness. We repeated a blood gas that showed a proximally the same my interpretation showed a chronic CO2 retention with a normal pH. I contemplated and getting a CT scan of the head. . But realized that patient has received a CT angio under the stroke alert. [place] a repeat CT head would not be helpful as it could cause a lot of artifacts. Will get a repeat CT scan after 6 hours. Patient still very sleepy. Hospitalist has seen the patient ICU team has evaluated patient patient to be admitted to the hospitalist team. Currently in stable condition. 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 04/07/25 18:52 04/07/25 18:52 Labs: Lab Results 04/07/25 04/07/25 04/07/25 Range/Units 18:52 18:57 20:46 WBC 5.0 (4.8-10.8) X10*3/uL RBC 3.53 L (4.20-5.50) X10*6/uL Hgb 10.8 L (12.0-16.0) g/dl Hct 32.8 L (37.0-47.0) % MCV 92.9 (80.0-98.0) fL MCH 30.6 (27.0-33.0) pg MCHC 32.9 (31.0-35.0) g/dl RDW 12.5 (11.0-16.0) % Plt Count 127 L (160-400) X10*3/uL MPV 8.9 L (9.4-12.3) fL Immature Gran % (Auto) 0.2 (0.0-0.4) % Neut % (Auto) 70.0 (45-73) % Lymph % (Auto) 15.7 L (20-40) % [place] % (Auto) 10.9 (2-11) % Eos % (Auto) 2.8 (0-4) % Baso % (Auto) 0.4 (0-2) % Lymph # (Auto) 0.8 L (1.2-4.9) X10*3/uL [place] # (Auto) 0.5 (0.1-1.2) X10*3/uL Eos # (Auto) 0.1 (0.0-0.4) X10*3/uL Baso # (Auto) 0.0 (0.0-0.2) X10*3/uL Abs Immat Gran (auto) 0.01 (0.00-0.03) X10*3/uL Absolute Neuts (auto) 3.5 (2.0-8.3) x10*3/uL Absolute Nucleated RBC 0.000 (0.0-0.012) X10*3/uL Nucleated RBC % (auto) 0.0 (0.0-0.2) /100WBC PT 11.6 (10.9-12.4) SEC INR 1.0 (0.9-1.1) APTT 28.5 (26.7-34.1) SEC Sodium 132 L (135-145) mmol/L Potassium 4.2 (3.3-5.1) mmol/L Chloride 97 (96-108) mmol/L Carbon Dioxide 28 (22-29) mmol/L Anion Gap 11 L (12-20) BUN 16 (9-16) mg/dL Creatinine 0.71 (0.5-1.4) mg/dL Estim Creat Clear Calc 70.1 Estimated GFR > 60 POC Glucose 93 (60-115) mg/dL Random Glucose 95 (60-115) mg/dL Calcium 8.2 L D (8.4-10.2) mg/dL Troponin I High Sens 7.5 (<3.5-17.0) ng/L Triglycerides 104 (<150) mg/dL Cholesterol 110 (<200) mg/dL LDL Cholesterol, Calc 48 (<100) mg/dL HDL Cholesterol 42 (>40) mg/dL Urine Color Yellow Urine Appearance Clear Urine pH 7.0 (5.0-9.0) Ur Specific [place] 1.020 (1.005-1.025) Urine Protein Negative (Neg-Trace) mg/dL Urine Glucose (UA) Negative (Negative) mg/dL Urine Ketones Negative (Negative) mg/dL Urine Blood Negative (Negative) Urine Nitrite Negative (Negative) Ur Leukocyte Esterase Negative (Negative) Urine RBC 0-2 (0-2) /HPF Urine WBC 0-5 (0-5) /HPF Ur Squamous Epith Cells 0-2 (0-2) /HPF Urine Bacteria None Seen (None Seen) Hyaline Casts 0-2 (0-2) /LPF Ethyl Alcohol < 10 mg/dL Independent Interpretation I performed an independent interpretation of an: EKG and CT Scan Radiology Impression Discussion of test interpretation with radiology: I have reviewed the radiologist's reading. External Record Review External record reviewed: Inpatient record Chronic Conditions Recurrent UTIs, hypertension Social Determinants Patient?s care significantly limited by Social Determinants of Health including: Problems related to primary support group NIH Stroke Scale Internal: Initial- Upon Arrival Time: 18:07 Level of Consciousness: Alert Level of Consciousness Questions: Answers both questions correctly Level of Consciousness Commands: Performs both tasks correctly Best Gaze: Normal Visual: No visual loss Facial Palsy: Normal Motor Arm (Right): No drift Motor Arm (Left): No drift Motor Leg (Right): No drift Motor Leg (Left): No movement Limb Ataxia: Absent Sensory: Normal Best Language: No aphasia Dysarthia: Normal Extinction and Inattention: No abnormality Score: 4 Critical Care Time Critical Care Time Critical Care Time: Yes Total Critical Care Time: 40 Attestation: I have personally provided 40 minutes of critical care time exclusive of time spent on separately billable procedures. ?Time includes review of lab data, radiology results, discussion with consultants, and monitoring for potential decompensation. ?Interventions were performed as documented above Discharge Plan Discharge Clinical Impression: Acute CVA (cerebrovascular accident) Patient Disposition: Admitted As Inpatient Interventions: Admission Worksheet (ED) Last Done: 04/08/25 00:12
[2025-04-07] MEDS: iohexoL 350 MG/ML 100 ML INFUS..BTL IV (18:09)
--- OUTSIDE RECORDS SUMMARY | 2025-04-07 18:49 | XMS_ITS | Patient Health Record ---
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 Vital Signs Blood pressure diastolic 80 mm Hg 03/19/2025 Height 5 ft 5 in in 03/19/2025 Blood pressure systolic 122 mm Hg 03/19/2025 Weight 178 lbs 03/19/2025 BMI 29.62 kg/m2 03/19/2025 Procedures Procedure Date Ordered Date Performed Result Body Sit e 76801-TXBICKZ NAIL, 6 OR MORE 05/08/2024 N/A 79071-DPUY SKIN LESIONS, 2 TO 4 05/08/2024 N/A 37486-IMJOCIV NAIL, 6 OR MORE 07/10/2024 N/A 24128-TZWZ SKIN LESIONS, 2 TO 4 07/10/2024 N/A 84447-YQTPJJR NAIL, 6 OR MORE 09/11/2024 N/A 16356-QLOS SKIN LESIONS, 2 TO 4 09/11/2024 N/A 42116-TJBITXB NAIL, 6 OR MORE 11/13/2024 N/A 62946-IPTU SKIN LESIONS, 2 TO 4 11/13/2024 N/A 11773-TFGDITQ NAIL, 6 OR MORE 01/15/2025 N/A 25610-KDLZ SKIN LESIONS, OVER 4 01/15/2025 N/A 97548-RLMZUYX NAIL, 6 OR MORE 03/19/2025 N/A 71089-TUDH SKIN LESIONS, OVER 4 03/19/2025 N/A Encounters Encounter Location Date Provider Diagnosis [facility] [place] [address] [place] [address] 05/08/2024 Starla Black Acquired equinovarus deformity of [...] Achilles tendinitis of left lower extremity M76.[address] [address] 07/10/2024 Starla Black Plantar fasciitis of left [...] M79.674 and Pain in left toe(s) M79.[address] [address] 09/11/2024 Starla Black Neuropathy due to chemotherapeutic drug G62.0 ; Tinea unguium B35.1 ; Pain in left toe(s) M79.675 and Pain in right toe(s) M79.[address] [address] 11/13/2024 Starla Black Neuropathy due to chemotherapeutic drug G62.0 ; Tinea unguium B35.1 ; Pain in left toe(s) M79.675 ; Pain in right toe(s) M79.674 and Tinea pedis of both feet B35.[address] [address] 01/15/2025 Starla Black Neuropathy due to chemotherapeutic drug G62.0 ; Tinea unguium B35.1 ; Pain in left toe(s) M79.675 ; Pain in right toe(s) M79.674 and Tinea pedis of both feet B35.3 [facility] [address] [address] 03/19/2025 Starla Black Neuropathy due to chemotherapeutic drug G62.0 ; Tinea unguium B35.1 ; Pain in left toe(s) M79.675 and Pain in right toe(s) M79.674 [facility] [address] [address] 04/27/2024 Starla Black [facility] [address] [address] 05/08/2024 Starla Black [facility] [address] [address] 07/04/2024 Starla Black [facility] [address] [address] 07/10/2024 Starla Black [facility] [address] [address] 07/10/2024 Starla Black [facility] [address] [address] 09/11/2024 Starla Black [facility] [address] [address] 11/13/2024 Starla Black [facility] [address] [address] 03/19/2025 Starla Black Assessments Encounter Date Diagnosis [...] X ray : Foot, left 3V 02/20/2011 03548-KWWJDPU NAIL, 6 OR MORE 02/09/2011 70209-ANIWWOT NAIL, 6 OR MORE 05/13/2011 59852-AQPJIFA NAIL, 6 OR MORE 12/23/2011 42229-OMBGOYM NAIL, 6 OR MORE 11/11/2011 03163-LEQGGSX NAIL, 6 OR MORE 07/23/2011 20388-ERXEXLD NAIL, 6 OR MORE 10/12/2011 28450-SMUMSCJ NAIL, 6 OR MORE 07/20/2012 51840-PWDMQBE NAIL, 6 OR MORE 03/18/2012 11157-DMJDVBO NAIL, 6 OR MORE 10/03/2012 77084-FCXXGCT NAIL, 6 OR MORE 01/19/2013 96997-SSWSXMK NAIL, 6 OR MORE 04/05/2013 82594-INUFEQF NAIL, 6 OR MORE 12/22/2012 09944-SMDWSBR NAIL, 6 OR MORE 04/18/2013 06809-IASOSUS NAIL, 6 OR MORE 06/15/2013 92365-BFAGOIS NAIL, 6 OR MORE 08/21/2013 01134-IXAWMJS NAIL, 6 OR MORE 12/29/2013 42610-JLLZCGR NAIL, 6 OR MORE 03/12/2014 50122-ZMSREBF NAIL, 6 OR MORE 05/21/2014 36524-ABJNHZR NAIL, 6 OR MORE 07/26/2014 32165-KATEXMU NAIL, 6 OR MORE 10/03/2014 10273-OSYAYCC NAIL, 6 OR MORE 12/11/2014 79596-GLOWJFS NAIL, 6 OR MORE 02/21/2015 28378-UCHQQTS NAIL, 6 OR MORE 04/29/2015 01776-HTUVKMN NAIL, 6 OR MORE 07/18/2015 56575-DBTVERT NAIL, 6 OR MORE 09/23/2015 26724-ZJNMFCO NAIL, 6 OR MORE 11/28/2015 32040-EPPOVOS NAIL, 6 OR MORE 02/06/2016 87081-YWBVFYG NAIL, 6 OR MORE 04/13/2016 40657-YWTWGER NAIL, 6 OR MORE 06/18/2016 18008-BTYGKKK NAIL, 6 OR MORE 08/20/2016 60749-YPVABLN NAIL, 6 OR MORE 10/22/2016 55335-VYCJBCF NAIL, 6 OR MORE 12/24/2016 70477-LHXLJMA NAIL, 6 OR MORE 02/25/2017 58056-CHPYVAF NAIL, 6 OR MORE 04/29/2017 16049-RZVDQMP NAIL, 6 OR MORE 07/01/2017 22636-YUJUVMJ NAIL, 6 OR MORE 09/02/2017 15338-TPZQMIG NAIL, 6 OR MORE 11/11/2017 14932-PYTSDIF NAIL, 6 OR MORE 01/13/2018 08286-ZJXYOAS NAIL, 6 OR MORE 03/17/2018 07406-MDSAFMH NAIL, 6 OR MORE 05/19/2018 88895-AEYNSKO NAIL, 6 OR MORE 07/21/2018 45732-NDWICQV NAIL, 6 OR MORE 09/26/2018 28724-HTFROEG NAIL, 6 OR MORE 11/28/2018 91204-ZUFBIJP NAIL, 6 OR MORE 01/30/2019 30767-DUUZCRU NAIL, 6 OR MORE 04/06/2019 89467-XCGIXQC NAIL, 6 OR MORE 06/15/2019 38714-MRPQOGW NAIL, 6 OR MORE 08/17/2019 84693-LGYVSYP NAIL, 6 OR MORE 10/26/2019 64683-UNPEWAJ NAIL, 6 OR MORE 12/28/2019 24757-KSKAAWB NAIL, 6 OR MORE 02/29/2020 70324-PHXZSAB NAIL, 6 OR MORE 05/02/2020 96044-TEMSSUY NAIL, 6 OR MORE 07/04/2020 03582-KTYBIOD NAIL, 6 OR MORE 09/05/2020 15827-DWNYAPH NAIL, 6 OR MORE 11/14/2020 46605-IVDXBLQ NAIL, 6 OR MORE 01/16/2021 19707-YZXXFOS NAIL, 6 OR MORE 03/27/2021 63065-OELAZOT NAIL, 6 OR MORE 05/29/2021 58679-XLIDZFE NAIL, 6 OR MORE 08/07/2021 82512-TIAEZIT NAIL, 6 OR MORE 10/09/2021 02359-USFKVLJ NAIL, 6 OR MORE 12/11/2021 52929-MFKOQHM NAIL, 6 OR MORE 02/12/2022 43614-XZCQSGO NAIL, 6 OR MORE 04/23/2022 86928-VXPXJAM NAIL, 6 OR MORE 06/25/2022 55495-EUWAEIL NAIL, 6 OR MORE 08/31/2022 14268-VYJETXU NAIL, 6 OR MORE 11/02/2022 55717-NKMZADH NAIL, 6 OR MORE 02/04/2023 35782-KPNJIXH NAIL, 6 OR MORE 08/19/2023 19568-GJYHUAK NAIL, 6 OR MORE 10/25/2023 28116-VCHWFIN NAIL, 6 OR MORE 12/27/2023 97001-JGNQYOG NAIL, 6 OR MORE 03/02/2024 61789-ZMKZVXU NAIL, 6 OR MORE 05/08/2024 06167-ZTILFRH NAIL, 6 OR MORE 07/10/2024 18891-KMRBJSX NAIL, 6 OR MORE 09/11/2024 99061-ODVPTQX NAIL, 6 OR MORE 11/13/2024 58734-XWKYFFK NAIL, 6 OR MORE 01/15/2025 01554-EDIBDPF NAIL, 6 OR MORE 03/19/2025 61678-Roon Destruction, 1-14 07/26/2014 79733-Afdrigbg Plate 10/03/2014 98248-Mxjijrbv Plate 09/23/2015 65054-Qtowbddg Plate 02/21/2015 20178-Hpnjgadb Plate 12/11/2014 85058-Oxofxhla Plate 02/25/2017 88071-Expmgubi Plate 08/20/2016 83750-Poyfranh Plate 06/18/2016 56527-Pbvlruto Plate 06/15/2019 56815-Hwvycqfl Plate 08/04/2018 50186-Jkynyovi Plate 01/13/2018 01549-Beghhrch Plate 07/21/2018 00568-Vexkcjtl Plate 12/24/2016 68997-Ugpxbjvg Plate 09/02/2017 58580-Dmpkmwdx Plate 12/29/2013 70803-Mehikmfo Plate 08/21/2013 71999-Hprpvdrb Plate 09/22/2012 66194-Xmcnkjyx Plate 02/25/2012 11004-Tzrhfydj Plate 03/18/2012 65448-Fvdjhnss Plate 07/20/2012 25568-Ylsygoka Plate 08/29/2012 78860-Qccdylof Plate 02/09/2011 62145-Ngzaodvw Plate 05/29/2021 12429-Mfzxpqfc Plate 01/16/2021 82405-Nbulepgj Plate 09/05/2020 52227-Icjqppll Plate 02/29/2020 29812-Kolfzast Plate Each Additional 10/2020 38772-Ybuphgqg Plate Each Additional 19980-Rmcmjkte Plate Each Additional 91440-UKK 09/07/2012 23810- Debride <25 sq cm 03/18/2012 46474- Debride <25 sq cm 07/23/2011 17507- Debride <25 sq cm 05/13/2011 65729- Debride <25 sq cm 11/02/2012 68543- Debride <25 sq cm 06/15/2013 73798- Debride <25 sq cm 12/11/2014 54220- Debride <25 sq cm 02/21/2015 42173- Debride <25 sq cm 04/18/2013 13344- Debride <25 sq cm 10/03/2014 71733- Debride <25 sq cm 03/12/2014 56396- Debride <25 sq cm 08/25/2018 93999- Debride <25 sq cm 08/04/2018 58198- Debride <25 sq cm 12/11/2021 92950- Debride <25 sq cm 09/11/2021 38373- Debride <25 sq cm 10/09/2021 84254-BTZQUVX SKIN/TISSUE 10/03/2012 72561-AGIAWBB SKIN/TISSUE 09/22/2012 16108 I&D ABSCESS- SIMPLE,SINGLE 012 58446 I&D ABSCESS- SIMPLE,SINGLE 011 01725 I&D ABSCESS- SIMPLE,SINGLE 011 18173 I&D ABSCESS- SIMPLE,SINGLE 011 12563 I&D ABSCESS- SIMPLE,SINGLE 013 88372 I&D ABSCESS- SIMPLE,SINGLE 013 76442 I&D ABSCESS- SIMPLE,SINGLE 013 51754 I&D ABSCESS- SIMPLE,SINGLE 013 84388 I&D ABSCESS- SIMPLE,SINGLE 013 86553 I&D ABSCESS- SIMPLE,SINGLE 017 25690 I&D ABSCESS- SIMPLE,SINGLE 022 84589- I&D ABSCESS-COMPLICATED,MULTI 10/2012 94081- I&D ABSCESS-COMPLICATED,MULTI 01265- I&D ABSCESS-COMPLICATED,MULTI 04/2013 73753- I&D ABSCESS-COMPLICATED,MULTI 01/2013 69102- I&D ABSCESS-COMPLICATED,MULTI 48572- I&D ABSCESS-COMPLICATED,MULTI 13403- I&D ABSCESS-COMPLICATED,MULTI 80768- I&D ABSCESS-COMPLICATED,MULTI , J0702- INJECT TENDON ORIGIN/INSER [...] J0702- INJECT or DRAIN, JOINT/BUR SA 04/09/2011 07453-DHUK SKIN LESIONS, OVER 4 04/29/20 17 19265-BJDA SKIN LESIONS, OVER 4 02/26/20 17 51711-UOIB SKIN LESIONS, OVER 4 08/21/19 17 39152-ANWO SKIN LESIONS, OVER 4 10/23/19 17 88205-SBXQ SKIN LESIONS, OVER 4 12/25/19 17 89677-XBSQ SKIN LESIONS, OVER 4 09/27/19 19 44598-TVMD SKIN LESIONS, OVER 4 01/31/20 19 60495-EPEM SKIN LESIONS, OVER 4 11/29/19 19 00081-CYRF SKIN LESIONS, OVER 4 06/15/19 20 40555-UBZI SKIN LESIONS, OVER 4 04/06/20 19 17518-QFMB SKIN LESIONS, OVER 4 10/26/19 20 80317-TTZA SKIN LESIONS, OVER 4 08/17/19 20 63863-SVXV SKIN LESIONS, OVER 4 07/01/19 18 05308-EIGC SKIN LESIONS, OVER 4 01/14/20 18 70994-OWNW SKIN LESIONS, OVER 4 09/03/19 18 01347-TXBI SKIN LESIONS, OVER 4 11/12/19 51866-QBUH SKIN LESIONS, OVER 4 07/21/19 24807-FORU SKIN LESIONS, OVER 4 05/19/20 77924-BDVL SKIN LESIONS, OVER 4 03/17/20 82635-MPVM SKIN LESIONS, OVER 4 09/06/19 95816-KVMH SKIN LESIONS, OVER 4 11/15/19 03429-ODGY SKIN LESIONS, OVER 4 02/29/20 93439-LZJK SKIN LESIONS, OVER 4 12/28/19 68620-NHBV SKIN LESIONS, OVER 4 07/04/19 61419-PJJN SKIN LESIONS, OVER 4 05/02/20 27937-FUNU SKIN LESIONS, OVER 4 03/19/20 46796-UFBR SKIN LESIONS, OVER 4 01/16/20 54664-YDUV SKIN LESIONS, 2 TO 4 11/14/19 61858-QRPL SKIN LESIONS, 2 TO 4 09/12/19 80009-AUPU SKIN LESIONS, 2 TO 4 07/10/19 11229-NPVL SKIN LESIONS, 2 TO 4 05/08/20 53196-QDKK SKIN LESIONS, 2 TO 4 03/02/20 11124-BRCJ SKIN LESIONS, 2 TO 4 12/27/19 47743-WGUK SKIN LESIONS, 2 TO 4 10/25/19 18688-HRBP SKIN LESIONS, 2 TO 4 08/19/19 16058-WPAP SKIN LESIONS, 2 TO 4 02/05/20 62164-MNCD SKIN LESIONS, 2 TO 4 11/03/19 22434-ABJU SKIN LESIONS, 2 TO 4 09/01/19 42114-FMUP SKIN LESIONS, 2 TO 4 06/25/19 12897-TOWY SKIN LESIONS, 2 TO 4 04/23/20 77204-JZYK SKIN LESIONS, 2 TO 4 01/17/20 98652-IBTA SKIN LESIONS, 2 TO 4 10/10/19 54566-KOGQ SKIN LESIONS, 2 TO 4 12/12/19 66780-DCTX SKIN LESIONS, 2 TO 4 02/13/20 39090-GXCM SKIN LESIONS, 2 TO 4 08/07/19 03791-ORTR SKIN LESIONS, 2 TO 4 03/27/20 45791-LJJH SKIN LESIONS, 2 TO 4 05/29/20 81813, A5815-QUDRZ/INJECT, JOINT/BURSA 0 08/29/2012 31921- Short Leg Cast 12/01/2012 Next Appt Details Provider Name:Starla Johnson , 05/21/2025 01:30:00 PM, [address] [place], [address], Provider Name:Starla Johnson , 07/23/2025 01:30:00 PM, [address] [place], [address], Insurance Providers Payer Name Payer Address Payer Phone Subscriber Number Group Number Insured Name Patient Relationship to Insured Coverage Start Date Coverage End Date [employer] [address] [place] [address] [id number] Celi Nina Sr Self - patient is the insured 0 [facility] [address] [place] [address] [id number] Celi Nina Sr Self - patient is [...] 1973 tonsillectomy 1954 Hospitalization History Reason Date(Month/Year) [facility] [place] 2024 [facility] [place] Pain - Debbie Bolden for a mon th 12/12/22 [facility] [place] U[place] 11/2022 [facility] [place] U[place]/2022 [facility] [place] stroke 10/25/22 [facility]-fracture her leg 2013
[2025-04-07 18:58] LABS: MANUAL DIFF FLAG NO
[2025-04-07 18:59] LABS: Hematocrit 32.8 % (37.0-47.0); Hemoglobin 10.8 g/dl (12.0-16.0); Imm Gran Abs Auto 0.01 X10*3/uL (0.00-0.03); Imm Gran Pct Auto 0.2 % (0.0-0.4); Lymphocytes Absolute Auto 0.8 X10*3/uL (1.2-4.9); Mean Corpuscular HGB Conc 32.9 g/dl (31.0-35.0); Mean Corpuscular Hemoglobin 30.6 pg (27.0-33.0); Mean Corpuscular Volume 92.9 fL (80.0-98.0); NRBC Abs Auto 0.000 X10*3/uL (0.0-0.012); NRBC Pct Auto 0.0 /100WBC (0.0-0.2); Platelet Count 127 X10*3/uL (160-400); Red Blood Count 3.53 X10*6/uL (4.20-5.50); White Blood Count 5.0 X10*3/uL (4.8-10.8)
[2025-04-07 19:05] LABS: INTERNATIONAL NORM RATIO 1.0 (0.9-1.1); Prothrombin Time 11.6 SEC (10.9-12.4)
[2025-04-07 19:08] LABS: Partial Thromboplastin Time 28.5 SEC (26.7-34.1)
[2025-04-07 19:09] LABS: Stroke Lab Use COMPLETE
[2025-04-07 19:09] LABS: Glucose, Whole Blood 93 mg/dL (60-115)
[2025-04-07 19:13] LABS: Anion Gap 11 (12-20); Blood Urea Nitrogen 16 mg/dL (9-16); Calcium 8.2 mg/dL (8.4-10.2); Carbon Dioxide 28 mmol/L (22-29); Chloride 97 mmol/L (96-108); Cholesterol 110 mg/dL (<200); Creatinine Clr Calc Pharmacy 70.1; Estimated Glomerular Filt Rate > 60; HDL Cholesterol 42 mg/dL (>40); Potassium 4.2 mmol/L (3.3-5.1); Sodium 132 mmol/L (135-145); Triglycerides 104 mg/dL (<150)
--- NOTE | 2025-04-07 19:16 | PC.NURSE ---
this RN assumed care of this pt @1900, pt noted to be lethargic, responsive to painful and verbal stimuli, BP noted to be 103/38 on the monitor, PA made aware, pt repositioned and bed sheets changed, BP increased to 121/46, pt placed on 2L O2 via NC d/t SPO2 in the low 90's. Pt still lethargic this time, continues to respond to verbal and painful stimuli, pt is A+OX4
[2025-04-07 19:19] LABS: Troponin-I High Sensitivity 7.5 ng/L (<3.5-17.0)
--- NOTE | 2025-04-07 19:28 | PC.NURSE ---
Patient presents to Ed after having fall at home Patient reports falling, landing on my head Unsure if LOC. Patient unsure why she fell. After fall patient had slurred speech and trouble moving extremities. Speech appears clear in ED, patient able to move all extremities Denies Pain, thinners, SOB PT INR machine giving multiple read errors, different staff attempted to try and obtain and machine would give an error, Tech finally able to obtain Pt INR Patient scanned moved to room Patient became lethargic and hard to arouse but would awake, patient responds that shes tired. Vitals remained stable Provider aware of patient condition
--- NOTE | 2025-04-07 20:04 | PC.NURSE ---
pt unable to void on her own, food equipment service technician performed a bladder scan on the pt, noted to have 416mL of urine in her bladder, provider Rigoberto Rosario made aware, verbal order for indwelling urinary catheter placement given if pt is unable to void on her own in bedpan. @2000 pt placed on a bedpan via x2 assist, pt extremely lethargic during this, pt nodded Yes when this RN stated if she is unable to void we have to place indwelling urinary catheter
--- NOTE | 2025-04-07 20:44 | PC.NURSE ---
16 [address] indwelling urinary catheter placed on this pt, pt extremely lethargic during procedure, respirations even and unlabored, approximately 600mL of clear yellow urine drained upon placement, pt tolerated procedure well, urine sample collected and sent to laboratory for testing
[2025-04-07 20:54] LABS: Appearance Urine Clear; Glucose Urine UA Negative (Negative); PH 7.0 (5.0-9.0); Specific Gravity - Urine 1.020 (1.005-1.025)
--- NOTE | 2025-04-07 20:55 | PC.NURSE ---
pt continues to be extremely lethargic, unable to obtain accurate temperature on pt oral @95, temp sensing rectal probe placed on pt at this time, pt covered in 3 warm blankets to increase temp
[2025-04-07 21:40] LABS: Glucose, Whole Blood 100 mg/dL (60-115)
[2025-04-07 22:05] LABS: ABG HCO3 40 mmol/L (22-26); ABG O2 % Saturation 100.0 %
[2025-04-07 22:06] LABS: ABG Refer to POC result
--- NOTE | 2025-04-07 22:42 | PM.CCN ---
Critical Care Event Note Summary Date of Service: 04/07/25 Code activated: No Narrative: This case had a high probability of a clinically significant, sudden, or life threatening deterioration of this patient's condition which required my full and direct attention, intervention and personal management. Critical Care Time (minutes): 15 Comment: The patient's chart, laboratories, images and the remainder of the workup were reviewed in detail. The patient was seen briefly in the emergency room per the request of Dr. Rosario as it was mentioned that the patient would not wake up and was difficult to arouse, he was concerned about her unresponsiveness despite of sternal rub. Upon arrival, on the monitor the patient appears hemodynamically stable, Her vital signs are normal including O2 sat of 96% not on oxygen. The patient appeared to be asleep, did not wake up to verbal stimuli however woke up to painful stimuli as I lightly pinched the right shoulder area to which she replied ?. Do not do that? At this point I redirected the care to Dr. Rosario who also witnessed my intervention as I repeated the above-mentioned task and the patient nearly sit up on the stretcher. Speech is clear, certainly she does not have any deficits of the upper and lower extremities as I witnessed her moving them while trying to sit up. At this point the patient is fully unarousable, does not appear encephalopathic. Her ABG that shows low retention of CO2 but no acidosis and is likely in the setting of hyper oxygenation. At this point I am not concerned of her airway, ability to respond and I do not think the patient needs ICU level of care. Consider repeating VBg. The case was discussed in detail with Dr. Sosa who is aware of the above. Total critical time during this assessment 15 minutes
[2025-04-07 23:49] LABS: ABG Refer to POC result
--- NOTE | 2025-04-07 23:49 | PM.IMHP ---
History of Present Illness Date of Service: 04/07/25 Chief Complaint: FALL 79-year-old female with a past medical history of HTN, HLD, hypothyroidism, CARMEN-on CPAP, peripheral neuropathy, anxiety, depression, GERD, chronic back pain, recurrent UTIs, lives alone; presented to the hospital today with a chief complaint of fall. Patient at the time of my interview is sleeping deeply. Hardly waking up to the verbal stimuli. Responds to painful stimuli. I spoke with the patient's daughter over the phone who mentioned that patient went to sleep she sleeps very deeply. Patient also has daytime excessive sleepiness in general. Patient's daughter is unsure if the patient is using her CPAP for her CARMEN. Patient's daughter unable to provide the history of presenting illness. History is limited. Per ER team the patient presented to the hospital with a chief complaint of fall; followed with a fall patient also had word finding difficulty. When she initially came to the ER patient was very conversive to the ER physician. Exam was nonfocal. CT head and CT angio head and neck showed no acute findings. Glabellar of hours later patient was noted to be extremely sleepy. Pupils are 1 mm in size. ICU team was consulted. Patient's blood gas showed pH of 7.39, pCO2 of 65. Patient was placed on supplemental oxygen briefly. Followed with patient oxygenation improved supplemental oxygenation was removed. Patient is saturating 90-95% on room air. Follow-up blood gas showed pCO2 of 55. Patient's daughter also mentions that patient is DNR/DNI. Review of all other systems is limited. [facility] Medical History Lumbar pain E coli bacteremia Acute hip pain Left arm weakness Anxiety GERD (gastroesophageal reflux disease) Peripheral neuropathy CARMEN on CPAP Lymphoma Resting tremor Restless leg syndrome Recurrent UTI Urinary incontinence Hyperlipidemia Hypothyroidism Hypertension Surgical History S/P radiation therapy Social History Household Members: None Housing: Other Housing Other:: senior housing Do you presently have visiting nurse or other home services: Yes Alcohol intake: never Patient Tobacco Use Status: Never used Tobacco Smoked in Last 30 Days: No Use of substances other than those prescribed or required for medical reasons: No Advance Directives: No Advance Directives Information Provided: No Do you have a plan to hurt others: No Plan service: No Current occupational status: retired Meds Allergies Allergy/AdvReac Type Severity Reaction Status Date / Time atropine (From ) Allergy Unknown Verified 04/07/25 18:19 clams Allergy Unknown Verified 04/07/25 18:19 crab Allergy Unknown Verified 04/07/25 18:19 enalaprilat (From Vasotec) Allergy Blister Verified 04/07/25 18:19 hyoscyamine (From ) Allergy Unknown Verified 04/07/25 18:19 phenobarbital Allergy Unknown Verified 04/07/25 18:19 scopolamine (From ) Allergy Unknown Verified 04/07/25 18:19 shellfish derived Allergy Unknown Verified 04/07/25 18:19 Sulfa (Sulfonamide Allergy Unknown Verified 04/07/25 18:19 Antibiotics) Active Medications: Current Medications Acetaminophen (Acetaminophen 325 Mg Tablet) 650 mg PO Q6H PRN PRN Reason: Pain, Mild 1-3,fever,headache Aspirin (Aspirin Enteric Coated 81 Mg Tablet.Dr) 81 mg PO DAILY [facility] Atorvastatin Calcium (Atorvastatin Calcium 80 Mg Tablet) 80 mg PO DAILY [facility] Calcium Carbonate (Calcium Carbonate 750 Mg Tab.Chew) 750 mg PO Q4H PRN PRN Reason: Heartburn Enoxaparin Sodium (Enoxaparin Sodium 40 Mg/0.4 Ml Syringe) 40 mg SUBCUT Q24H [facility] Last Admin: 04/07/25 22:49 Dose: 40 mg Magnesium Hydroxide (Milk Of Magnesia 30 Ml Oral.Susp) 30 ml PO DAILY PRN PRN Reason: Constipation Melatonin (Melatonin 3 Mg Tablet) 6 mg PO BEDTIME PRN PRN Reason: Insomnia Sodium Chloride (0.9 % Sodium Chloride Flush 3 Ml Syringe) 3 ml IVFLUSH QSHIFT [facility] Home Medications ?Medication ?Instructions ?Recorded ?Confirmed ?Last Taken ?Type Lactobacillus acidophilus 2 tab PO BID 10/21/22 12/15/22 Unknown History acetaminophen 500 mg tablet 1,000 mg PO TID PRN Pain, Mild 10/21/22 12/15/22 Unknown History amlodipine 10 mg tablet 10 mg PO DAILY 10/21/22 12/15/22 10/21/22 History ascorbic acid (vitamin C) 1,000 mg 1,000 mg PO BID 10/21/22 12/15/22 10/21/22 History tablet atorvastatin 20 mg tablet 20 mg PO DAILY 10/21/22 12/15/22 Unknown History buprenorphine HCl 2 mg sublingual 4 mg sublingual TID 10/21/22 12/15/22 Unknown History tablet buspirone 5 mg tablet 5 mg PO DAILY 10/21/22 12/15/22 Unknown History cetirizine 10 mg tablet 10 mg PO DAILY 10/21/22 12/15/22 Unknown History cholecalciferol (vitamin D3) 10 10 mcg PO DAILY 10/21/22 12/15/22 Unknown History mcg (400 unit) tablet escitalopram oxalate 20 mg tablet 20 mg PO DAILY 10/21/22 12/15/22 Unknown History furosemide 40 mg tablet 40 mg PO DAILY 10/21/22 12/15/22 10/21/22 History lamotrigine 200 mg tablet 200 mg PO BID 10/21/22 12/15/22 Unknown History latanoprost 0.005 % eye drops 1 drp ophthalmic (eye) BEDTIME 10/21/22 12/15/22 Unknown History levothyroxine 75 mcg tablet 75 mcg PO DAILY@0600 10/21/22 12/15/22 Unknown History lidocaine 5 % topical patch 3 patch topical DAILY 10/21/22 12/15/22 Unknown History lorazepam 0.5 mg tablet 0.5 mg PO DAILY PRN Anxiety 10/21/22 12/15/22 Unknown History losartan 100 mg tablet 100 mg PO DAILY 10/21/22 12/15/22 10/21/22 History meloxicam 15 mg tablet 15 mg PO DAILY 10/21/22 12/15/22 Unknown History methenamine hippurate 1 gram tablet 1 g PO BID 10/21/22 12/15/22 10/21/22 History multivitamin 1 tab PO DAILY 10/21/22 12/15/22 Unknown History omeprazole 20 mg capsule,delayed 20 mg PO BID@0630,1630 10/21/22 12/15/22 Unknown History release polyethylene glycol 3350 17 gram 17 g PO BID 10/21/22 12/15/22 Unknown History oral powder packet (Miralax) psyllium 1 packet PO BID 10/21/22 12/15/22 Unknown History buspirone 5 mg tablet 15 mg PO BEDTIME 11/23/22 12/15/22 Unknown History Physical Exam Vital Signs and Narrative: Vital Signs: Last Vital Signs Temp 96.1 F L 04/07/25 21:58 Pulse 52 04/07/25 21:58 Resp 10 L 04/07/25 21:58 BP 152/51 H 04/07/25 21:58 Pulse Ox 100 04/07/25 21:58 O2 Del Method Nasal Cannula 04/07/25 21:58 O2 Flow Rate 1 04/07/25 21:58 BMI result Body Mass Index 32.0 Gen: Appears be in no acute distress HEENT: NCAT, Moist mucosa. Pulmonary: Slightly diminished breath sounds. CVS: Normal S1-S2 Abdomen: BS+, Soft, Nontender Extremities: Warm well perfused Neuro: Drowsy and sleepy. Exam limited. Results Labs 04/07/25 18:52 04/07/25 18:52 Labs: Laboratory Results - last 24 hr 04/07/25 04/07/25 04/07/25 18:52 18:57 20:46 MCV 92.9 MCH 30.6 MCHC 32.9 RDW 12.5 Plt Count 127 L MPV 8.9 L Immature Gran % (Auto) 0.2 Neut % (Auto) 70.0 Lymph % (Auto) 15.7 L [place] % (Auto) 10.9 Eos % (Auto) 2.8 Baso % (Auto) 0.4 Lymph # (Auto) 0.8 L [place] # (Auto) 0.5 Eos # (Auto) 0.1 Baso # (Auto) 0.0 Abs Immat Gran (auto) 0.01 Absolute Neuts (auto) 3.5 Absolute Nucleated RBC 0.000 Nucleated RBC % (auto) 0.0 PT 11.6 INR 1.0 APTT 28.5 O2 Saturation ABG pH at Pt Temp ABG pCO2 at Pt Temp ABG pO2 at Pt Temp ABG HCO3 ABG Base Excess (Actual) Anion Gap 11 L Estim Creat Clear Calc 70.1 Estimated GFR > 60 POC Glucose 93 Random Glucose 95 Calcium 8.2 L D Troponin I High Sens 7.5 Triglycerides 104 Cholesterol 110 LDL Cholesterol, Calc 48 HDL Cholesterol 42 Urine Color Yellow Urine Appearance Clear Urine pH 7.0 Ur Specific [place] 1.020 Urine Protein Negative Urine Glucose (UA) Negative Urine Ketones Negative Urine Blood Negative Urine Nitrite Negative Ur Leukocyte Esterase Negative Urine RBC 0-2 Urine WBC 0-5 Ur Squamous Epith Cells 0-2 Urine Bacteria None Seen Hyaline Casts 0-2 Ethyl Alcohol < 10 04/07/25 04/07/25 21:35 21:54 MCV MCH MCHC RDW Plt Count MPV Immature Gran % (Auto) Neut % (Auto) Lymph % (Auto) [place] % (Auto) Eos % (Auto) Baso % (Auto) Lymph # (Auto) [place] # (Auto) Eos # (Auto) Baso # (Auto) Abs Immat Gran (auto) Absolute Neuts (auto) Absolute Nucleated RBC Nucleated RBC % (auto) PT INR APTT O2 Saturation 100.0 ABG pH at Pt Temp 7.39 ABG pCO2 at Pt Temp 65 H* ABG pO2 at Pt Temp 127 H ABG HCO3 40 H ABG Base Excess (Actual) 12.0 Anion Gap Estim Creat Clear Calc Estimated GFR POC Glucose 100 Random Glucose Calcium Troponin I High Sens Triglycerides Cholesterol LDL Cholesterol, Calc HDL Cholesterol Urine Color Urine Appearance Urine pH Ur Specific [place] Urine Protein Urine Glucose (UA) Urine Ketones Urine Blood Urine Nitrite Ur Leukocyte Esterase Urine RBC Urine WBC Ur Squamous Epith Cells Urine Bacteria Hyaline Casts Ethyl Alcohol Assessment and Plan (1) Fall: Qualifiers: Encounter type: sequela Qualified Code(s): W19.XXXS - Unspecified fall, sequela Status: Acute Plan 79-year-old female with a past medical history of HTN, HLD, hypothyroidism, CARMEN-on CPAP, peripheral neuropathy, anxiety, depression, GERD, chronic back pain, ? Opiate dependence: recurrent UTIs, lives alone; presented to the hospital today with a chief complaint of fall. Fall: Unwitnessed. Patient's daughter patient had a fall about a week ago as well. CT head and CT angio head and neck showed no acute findings. Fall precautions PT/OT when ready for discharge Word-finding difficulty: Patient initially had word-finding difficulty per ER team. Exam at the time of my interview is limited as patient is very sleepy and drowsy unable to obtain history. As mentioned cat scans were negative. Will obtain MRI brain Telemetry Excessive drowsiness: Will obtain ammonia levels Patient has possibly CO2 narcosis. Patient was briefly hypoxic currently improving Chest x-ray showed no acute cardiopulmonary process Patient is DNR/DNI. Patient needs to be educated for compliance with her home CPAP for CARMEN. Hypothermia: Unclear source of infection. UA, chest x-ray negative. Empirically covered with ceftriaxone. Follow the fever curve. For all other chronic conditions, home medications to be resumed once med rec is completed by the pharmacy in a.m.. DVT prophylaxis: Subcu heparin Code status: DNR/DNI, confirmed with the patient's daughter over the phone. Quality Stroke Does the patient have a stroke diagnosis?: No VTE Prior VTE?: No VTE Risk Level:: Medical - moderate - high VTE Device Contraindication: Treatment Not Indicated VTE Drug Contraindication: N/A - Med Ordered
[2025-04-07 23:54] LABS: ABG HCO3 36 mmol/L (22-26); ABG O2 % Saturation 95.0 %
[2025-04-08] VITALS (8 sets, daily range): BP systolic 143–189; BP diastolic 63–86; PULSE 55–81; RESP 16–20; TEMP 35.4–37.3; O2SAT 92–98; BMI 29.3
--- NOTE | 2025-04-08 | EEG_ITS ---
Reason For EEG: Altered mental status Room performed: 1 st floor Medications: Acetaminophen, asa, atorvastatin calcium, calcium carbonate, magnesium hydroxide, melatonin, buspirone, cetrizine, vit D3, furosemide, lamotrigine, levothyroxine, meloxicam, omeprazole History: H/O lumbar pain, e coli, acute hip pain, left arm weakness, anxiety, GERD, peripheral neuropathy, CARMEN on CPAP, lymphoma, resting tremor, recurrent UTI, htn, hypothyroidism, hyperlipidemia Orthopedic Physician Comments: Photic stimulation: completed HV: omitted Behavioral state: cooperative, patient at baseline and able to follow commands and carry on a conversation State of Consciousness: awake and slight drowsy Skull defect: no Sedation: no Handedness: Right Duration of the study 23 mins 30 sec Description: This is a 16 channel EEG with an EKG lead. Patient is reported awake during the tracing. Background EEG rhythm is low amplitude fast with no obvious asymmetry or paroxysmal tendency. Photic stimulation does not produce any significant driving. Hyperventilation is is not performed. No sharp waves, spikes, asymmetric activity, or paroxysmal activity noted. Cardiac lead does not reveal any significant abnormality. Impression: Unremarkable EEG. MTDD
--- NOTE | 2025-04-08 00:08 | HO.NURTONUR ---
Patient is an 79-year-old female, DNR/DNI, BIBA from home. Patient had a fall at home. Patient reports falling, landing on my head Unsure if LOC. Patient unsure why she fell. After fall patient had slurred speech and trouble moving extremities. Speech appears clear in ED, patient able to move all extremities presents today with having last known well time about 1430 at the time patient was speaking with her daughter. Since then patient has noticed some change in her speech. Patient seems like it is more difficult to get words out. Patient denies any fever chills. Denies any new focal weakness. Has baseline left lower extremity weakness. The no chest pain there is no arm weakness there is no coordination that is off. Patient is from home. There is no diaphoresis. Pt was A+Ox4 approximately 1900, has since become more lethargic and more difficult to arouse, but will respond to verbal and painful stimuli. -16 persian mueller catheter placed d/t drowsiness, difficulty ambulating and inability to void, approximately 600 mL of clear yellow urine drained upon placement, sample collected and sent to the lab, UA was negative. -Rectal temp sensing probe plaed d/t pt mouth breathing and inability to obtain accurate oral temp. -She was on 2L via NC upon the beginning of my shift @1900, has since been on RA since approximately 2200 Head + Neck CTA : neg CXR: Mild chronic central large airway inflammatory thickening, otherwise neg Head CT: Chronic involutional volume loss and small remote right internal capsule infarct. otherwise neg She has a 20g EMS line to the right forearm ABG obtained and resulted in EMR, has improved from initial ABG
[2025-04-08 06:57] LABS: MANUAL DIFF FLAG NO
[2025-04-08 07:37] LABS: Alanine Aminotransferase 17 U/L (0-31); Albumin Level 4.0 g/dL (3.5-5.0); Alkaline Phosphatase 57 U/L (39-117); Anion Gap 12 (12-20); Aspartate Amino Transferase 32 U/L (5-31); Blood Urea Nitrogen 10 mg/dL (9-16); Calcium 9.0 mg/dL (8.4-10.2); Carbon Dioxide 30 mmol/L (22-29); Chloride 101 mmol/L (96-108); Cholesterol 127 mg/dL (<200); Creatinine Clr Calc Pharmacy 76.9; Estimated Glomerular Filt Rate > 60; HDL Cholesterol 45 mg/dL (>40); Potassium 4.1 mmol/L (3.3-5.1); Sodium 139 mmol/L (135-145); Total Protein 6.8 g/dL (6.5-8.0); Triglycerides 115 mg/dL (<150)
[2025-04-08 07:42] LABS: Hematocrit 38.7 % (37.0-47.0); Hemoglobin 12.6 g/dl (12.0-16.0); Imm Gran Abs Auto 0.01 X10*3/uL (0.00-0.03); Imm Gran Pct Auto 0.2 % (0.0-0.4); Lymphocytes Absolute Auto 0.8 X10*3/uL (1.2-4.9); Mean Corpuscular HGB Conc 32.6 g/dl (31.0-35.0); Mean Corpuscular Hemoglobin 30.5 pg (27.0-33.0); Mean Corpuscular Volume 93.7 fL (80.0-98.0); NRBC Abs Auto 0.000 X10*3/uL (0.0-0.012); NRBC Pct Auto 0.0 /100WBC (0.0-0.2); Platelet Count 139 X10*3/uL (160-400); Red Blood Count 4.13 X10*6/uL (4.20-5.50); White Blood Count 4.2 X10*3/uL (4.8-10.8)
[2025-04-08] MEDS: 0.9 % Sodium Chloride Flush 3 ML SYRINGE IVFLUSH ×2 (08:37→20:21)
[2025-04-08] MEDS: Aspirin Enteric Coated 81 MG TABLET.DR PO (08:40)
--- NOTE | 2025-04-08 09:13 | MHC.CM.PN ---
Addendum entered by Noris Yang 04/08/25 13:04: A copy of the HCP has been uploaded to [facility] and one has been placed on the chart. Original Note: CM met with Patient at bedside and addressed IMM with her, providing Patient with the original and a copy has been placed on the chart. Patient lives alone in an apartment and she uses a w/c to assist with mobility. Patient will benefit from a PT Eval to assist with disposition and CM has initiated and will follow for dc planning. PCP is Dr. Debi Cisse from [place] and Dr. Cony Knapp from the [facility]. Daughter/HCP/Celi Vincent is the HCP and she vs BLS for transport at dc, pending final dc plan.Patient's home med list lists Buprenorphine but Patient denies being on this med; is aware and looking into it.
--- NOTE | 2025-04-08 09:20 | P.PNIM_ITS ---
Subjective Subjective Date of Service: 04/08/25 Interval History: feels back to normal, does not remember most of yesterdays events Physical Exam 2 Exam: Exam: General: AO X 3, no acute distress Resp: CTA bilateral, no accessory muscles used CVS: S1,S2,RRR GI: soft, non tender, non distended Neuro: motor grossly intact, alert, intentional tremor Psych: appropriate affect, appropriate insight Vital Signs: Vital Signs: Last Vital Signs Temp 98.4 F 04/08/25 07:59 Pulse 56 04/08/25 07:59 Resp 16 04/08/25 07:59 BP 154/70 H 04/08/25 07:59 Pulse Ox 95 04/08/25 07:59 O2 Del Method Room Air 04/08/25 07:59 O2 Flow Rate 1 04/07/25 21:58 BMI result Body Mass Index 29.3 Objective Data Active Medications Acetaminophen (Acetaminophen 325 Mg Tablet) 650 mg PO Q6H PRN PRN Reason: Pain, Mild 1-3,fever,headache Aspirin (Aspirin Enteric Coated 81 Mg Tablet.) 81 mg PO DAILY [facility] Last Admin: 04/08/25 08:40 Dose: 81 mg Documented By: LARA Atorvastatin Calcium (Atorvastatin Calcium 80 Mg Tablet) 80 mg PO DAILY [facility] Last Admin: 04/08/25 08:40 Dose: 80 mg Documented By: LARA Calcium Carbonate (Calcium Carbonate 750 Mg Tab.Chew) 750 mg PO Q4H PRN PRN Reason: Heartburn Enoxaparin Sodium (Enoxaparin Sodium 40 Mg/0.4 Ml Syringe) 40 mg SUBCUT Q24H [facility] Last Admin: 04/07/25 22:49 Dose: 40 mg Documented By: MIGUEL Magnesium Hydroxide (Milk Of Magnesia 30 Ml Oral.Susp) 30 ml PO DAILY PRN PRN Reason: Constipation Melatonin (Melatonin 3 Mg Tablet) 6 mg PO BEDTIME PRN PRN Reason: Insomnia Sodium Chloride (0.9 % Sodium Chloride Flush 3 Ml Syringe) 3 ml IVFLUSH QSHIFT [facility] Last Admin: 04/08/25 08:37 Dose: 3 ml Documented By: LARA Labs 04/08/25 06:12 04/08/25 06:12 Labs: Laboratory Results - last 24 hr 04/07/25 04/07/25 04/07/25 18:52 18:57 20:46 MCV 92.9 MCH 30.6 MCHC 32.9 RDW 12.5 Plt Count 127 L MPV 8.9 L Immature Gran % (Auto) 0.2 Neut % (Auto) 70.0 Lymph % (Auto) 15.7 L [place] % (Auto) 10.9 Eos % (Auto) 2.8 Baso % (Auto) 0.4 Lymph # (Auto) 0.8 L [place] # (Auto) 0.5 Eos # (Auto) 0.1 Baso # (Auto) 0.0 Abs Immat Gran (auto) 0.01 Absolute Neuts (auto) 3.5 Absolute Nucleated RBC 0.000 Nucleated RBC % (auto) 0.0 PT 11.6 INR 1.0 APTT 28.5 O2 Saturation ABG pH at Pt Temp ABG pCO2 at Pt Temp ABG pO2 at Pt Temp ABG HCO3 ABG Base Excess (Actual) Anion Gap 11 L Estim Creat Clear Calc 70.1 Estimated GFR > 60 POC Glucose 93 Random Glucose 95 Calcium 8.2 L D Total Bilirubin AST ALT Alkaline Phosphatase Troponin I High Sens 7.5 Total Protein Albumin Triglycerides 104 Cholesterol 110 LDL Cholesterol, Calc 48 HDL Cholesterol 42 Urine Color Yellow Urine Appearance Clear Urine pH 7.0 Ur Specific [place] 1.020 Urine Protein Negative Urine Glucose (UA) Negative Urine Ketones Negative Urine Blood Negative Urine Nitrite Negative Ur Leukocyte Esterase Negative Urine RBC 0-2 Urine WBC 0-5 Ur Squamous Epith Cells 0-2 Urine Bacteria None Seen Hyaline Casts 0-2 Ethyl Alcohol < 10 04/07/25 04/07/25 04/07/25 21:35 21:54 23:48 MCV MCH MCHC RDW Plt Count MPV Immature Gran % (Auto) Neut % (Auto) Lymph % (Auto) [place] % (Auto) Eos % (Auto) Baso % (Auto) Lymph # (Auto) [place] # (Auto) Eos # (Auto) Baso # (Auto) Abs Immat Gran (auto) Absolute Neuts (auto) Absolute Nucleated RBC Nucleated RBC % (auto) PT INR APTT O2 Saturation 100.0 95.0 ABG pH at Pt Temp 7.39 7.39 ABG pCO2 at Pt Temp 65 H* 59 H ABG pO2 at Pt Temp 127 H 75 L ABG HCO3 40 H 36 H ABG Base Excess (Actual) 12.0 9.3 Anion Gap Estim Creat Clear Calc Estimated GFR POC Glucose 100 Random Glucose Calcium Total Bilirubin AST ALT Alkaline Phosphatase Troponin I High Sens Total Protein Albumin Triglycerides Cholesterol LDL Cholesterol, Calc HDL Cholesterol Urine Color Urine Appearance Urine pH Ur Specific [place] Urine Protein Urine Glucose (UA) Urine Ketones Urine Blood Urine Nitrite Ur Leukocyte Esterase Urine RBC Urine WBC Ur Squamous Epith Cells Urine Bacteria Hyaline Casts Ethyl Alcohol 04/08/25 06:12 MCV 93.7 MCH 30.5 MCHC 32.6 RDW 12.3 Plt Count 139 L MPV 9.5 Immature Gran % (Auto) 0.2 Neut % (Auto) 65.2 Lymph % (Auto) 19.0 L [place] % (Auto) 10.8 Eos % (Auto) 4.3 H Baso % (Auto) 0.5 Lymph # (Auto) 0.8 L [place] # (Auto) 0.5 Eos # (Auto) 0.2 Baso # (Auto) 0.0 Abs Immat Gran (auto) 0.01 Absolute Neuts (auto) 2.7 Absolute Nucleated RBC 0.000 Nucleated RBC % (auto) 0.0 PT INR APTT O2 Saturation ABG pH at Pt Temp ABG pCO2 at Pt Temp ABG pO2 at Pt Temp ABG HCO3 ABG Base Excess (Actual) Anion Gap 12 Estim Creat Clear Calc 76.9 Estimated GFR > 60 POC Glucose Random Glucose 90 Calcium 9.0 D Total Bilirubin 0.5 AST 32 H ALT 17 Alkaline Phosphatase 57 Troponin I High Sens Total Protein 6.8 Albumin 4.0 Triglycerides 115 Cholesterol 127 LDL Cholesterol, Calc 59 HDL Cholesterol 45 Urine Color Urine Appearance Urine pH Ur Specific [place] Urine Protein Urine Glucose (UA) Urine Ketones Urine Blood Urine Nitrite Ur Leukocyte Esterase Urine RBC Urine WBC Ur Squamous Epith Cells Urine Bacteria Hyaline Casts Ethyl Alcohol Assessment and Plan (1) Fall: Status: Acute Plan 79F PMH cva, epilepsy, ?narcolepsy, htn, hld, lymphoma, mood disorder, hypothyroid, CARMEN on bipap at night, essential tremor, 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
--- NOTE | 2025-04-08 10:25 | PM.NEUROCN ---
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 When I asked her why she was here and what was wrong with the speech, she stated that it was actually her sleep that was causing problem with speech. She said that she had narcolepsy diagnosed by a operations agent in [facility] couple of years ago and was being treated with modafinil. This could not be independently confirmed. She stated that she has been treated for lymphoma affecting multiple areas of her body including her bones. I initially saw her in 2020 when she presented with body jerking movements suspicious of seizure disorder but triggered by extreme stress and were considered to be psychosomatic. She has chronic weakness of left leg and left arm. She said that she was living alone but not driving. There was no description of any seizure-like episode happening recently. No obvious cold or flu-like illness, headache, or loss of consciousness. Apparently she was noted to be sometime sleeping deeply. Review of Systems Review of Systems: As per HPI [facility] Past Medical History Medical History Lumbar pain E coli bacteremia Acute hip pain Left arm weakness Anxiety GERD (gastroesophageal reflux disease) Peripheral neuropathy CARMEN on CPAP Lymphoma Resting tremor Restless leg syndrome Recurrent UTI Urinary incontinence Hyperlipidemia Hypothyroidism Hypertension Surgical History Surgical History S/P radiation therapy Social History Social History Household Members: None Housing: Assisted Living Facility Housing Other:: senior housing Do you presently have visiting nurse or other home services: No Alcohol intake: never Patient Tobacco Use Status: Never used Tobacco Smoked in Last 30 Days: No Use of substances other than those prescribed or required for medical reasons: No Have you been hit, kicked, punched, or otherwise hurt by someone within the past year? If so, by whom?: No Do you feel safe in your current relationship?: Yes Is there a partner from a previous relationship who is making you feel unsafe now?: No Are you made to feel afraid or neglected: No Advance Directives: No Advance Directives Information Provided: No Do you have a plan to hurt others: No Plan Recently lost weight without trying: No Nutrition Risks: No Nutritional Risk Patient : No : No Poor oral hygiene: No service: Yes Current occupational status: retired Meds Allergies Allergy/AdvReac Type Severity Reaction Status Date / Time atropine (From ) Allergy Unknown Verified 04/07/25 18:19 clams Allergy Unknown Verified 04/07/25 18:19 crab Allergy Unknown Verified 04/07/25 18:19 enalaprilat (From Vasotec) Allergy Blister Verified 04/07/25 18:19 hyoscyamine (From ) Allergy Unknown Verified 04/07/25 18:19 phenobarbital Allergy Unknown Verified 04/07/25 18:19 scopolamine (From ) Allergy Unknown Verified 04/07/25 18:19 shellfish derived Allergy Unknown Verified 04/07/25 18:19 Sulfa (Sulfonamide Allergy Unknown Verified 04/07/25 18:19 Antibiotics) Active Medications: Current Medications Acetaminophen (Acetaminophen 325 Mg Tablet) 650 mg PO Q6H PRN PRN Reason: Pain, Mild 1-3,fever,headache Aspirin (Aspirin Enteric Coated 81 Mg Tablet.) 81 mg PO DAILY [facility] Last Admin: 04/08/25 08:40 Dose: 81 mg Atorvastatin Calcium (Atorvastatin Calcium 80 Mg Tablet) 80 mg PO DAILY [facility] Last Admin: 04/08/25 08:40 Dose: 80 mg Calcium Carbonate (Calcium Carbonate 750 Mg Tab.Chew) 750 mg PO Q4H PRN PRN Reason: Heartburn Enoxaparin Sodium (Enoxaparin Sodium 40 Mg/0.4 Ml Syringe) 40 mg SUBCUT Q24H [facility] Last Admin: 04/07/25 22:49 Dose: 40 mg Magnesium Hydroxide (Milk Of Magnesia 30 Ml Oral.Susp) 30 ml PO DAILY PRN PRN Reason: Constipation Melatonin (Melatonin 3 Mg Tablet) 6 mg PO BEDTIME PRN PRN Reason: Insomnia Sodium Chloride (0.9 % Sodium Chloride Flush 3 Ml Syringe) 3 ml IVFLUSH QSHIFT [facility] Last Admin: 04/08/25 08:37 Dose: 3 ml Home Medications ?Medication ?Instructions ?Recorded ?Confirmed ?Last Taken ?Type Lactobacillus acidophilus 2 tab PO BID 10/21/22 12/15/22 Unknown History acetaminophen 500 mg tablet 1,000 mg PO TID PRN Pain, Mild 10/21/22 12/15/22 Unknown History amlodipine 10 mg tablet 10 mg PO DAILY 10/21/22 12/15/22 10/21/22 History ascorbic acid (vitamin C) 1,000 mg 1,000 mg PO BID 10/21/22 12/15/22 10/21/22 History tablet atorvastatin 20 mg tablet 20 mg PO DAILY 10/21/22 12/15/22 Unknown History buprenorphine HCl 2 mg sublingual 4 mg sublingual TID 10/21/22 12/15/22 Unknown History tablet buspirone 5 mg tablet 5 mg PO DAILY 10/21/22 12/15/22 Unknown History cetirizine 10 mg tablet 10 mg PO DAILY 10/21/22 12/15/22 Unknown History cholecalciferol (vitamin D3) 10 10 mcg PO DAILY 10/21/22 12/15/22 Unknown History mcg (400 unit) tablet escitalopram oxalate 20 mg tablet 20 mg PO DAILY 10/21/22 12/15/22 Unknown History furosemide 40 mg tablet 40 mg PO DAILY 10/21/22 12/15/22 10/21/22 History lamotrigine 200 mg tablet 200 mg PO BID 10/21/22 12/15/22 Unknown History latanoprost 0.005 % eye drops 1 drp ophthalmic (eye) BEDTIME 10/21/22 12/15/22 Unknown History levothyroxine 75 mcg tablet 75 mcg PO DAILY@0600 10/21/22 12/15/22 Unknown History lidocaine 5 % topical patch 3 patch topical DAILY 10/21/22 12/15/22 Unknown History lorazepam 0.5 mg tablet 0.5 mg PO DAILY PRN Anxiety 10/21/22 12/15/22 Unknown History losartan 100 mg tablet 100 mg PO DAILY 10/21/22 12/15/22 10/21/22 History meloxicam 15 mg tablet 15 mg PO DAILY 10/21/22 12/15/22 Unknown History methenamine hippurate 1 gram tablet 1 g PO BID 10/21/22 12/15/22 10/21/22 History multivitamin 1 tab PO DAILY 10/21/22 12/15/22 Unknown History omeprazole 20 mg capsule,delayed 20 mg PO BID@0630,1630 10/21/22 12/15/22 Unknown History release polyethylene glycol 3350 17 gram 17 g PO BID 10/21/22 12/15/22 Unknown History oral powder packet (Miralax) psyllium 1 packet PO BID 10/21/22 12/15/22 Unknown History buspirone 5 mg tablet 15 mg PO BEDTIME 11/23/22 12/15/22 Unknown History Physical Exam Vital Signs: Vital Signs: Last Vital Signs Temp 98.4 F 04/08/25 07:59 Pulse 56 04/08/25 07:59 Resp 16 04/08/25 07:59 BP 154/70 H 04/08/25 07:59 Pulse Ox 95 04/08/25 07:59 O2 Del Method Room Air 04/08/25 07:59 O2 Flow Rate 1 04/07/25 21:58 BMI result Body Mass Index 29.3 Neuro: Other: She was alert and awake with normal spontaneity of speech fluency comprehension and somewhat flat affect. I did not notice any problem with a speech. Intermittently she would close her eyes. There was no sign of any confusion. Face was symmetrical. Visual ramirez are full. Pupils were equal and reactive to light. Extraocular muscles were intact. Hearing was intact. There was significant generalized muscle atrophy with loss of reflexes. She was able to move right foot much better than left. On the left side, ankle eversion and dorsiflexion were minimum to none. Plantars were flexor. Results Labs 04/08/25 06:12 04/08/25 06:12 Labs: Short CBC 04/07/25 04/08/25 Range/Units 18:52 06:12 WBC 5.0 4.2 L (4.8-10.8) X10*3/uL Hgb 10.8 L 12.6 (12.0-16.0) g/dl Hct 32.8 L 38.7 (37.0-47.0) % Plt Count 127 L 139 L (160-400) X10*3/uL BMP 04/07/25 04/08/25 18:52 06:12 Sodium 132 L 139 Potassium 4.2 4.1 Chloride 97 101 Carbon Dioxide 28 30 H BUN 16 10 Creatinine 0.71 0.62 Calcium 8.2 L D 9.0 D Liver Function 04/08/25 Range/Units 06:12 Total Bilirubin 0.5 (0.0-1.0) mg/dL AST 32 H (5-31) U/L ALT 17 (0-31) U/L Alkaline Phosphatase 57 (39-117) U/L Albumin 4.0 (3.5-5.0) g/dL Urine 10/25/25 Range/Units 20:46 Urine Color Yellow Urine Appearance Clear Urine pH 7.0 (5.0-9.0) Ur Specific [place] 1.020 (1.005-1.025) Urine Protein Negative (Neg-Trace) mg/dL Urine Glucose (UA) Negative (Negative) mg/dL CTA HEAD, bolus contrast injection. 3D reconstructions and MPRs: Comparison: None Findings: Right Carotid Siphon: No stenosis. Right Anterior Cerebral Artery: A1 and A2 segments are unremarkable. There is peripheral cortical enhancement. Right Middle Cerebral Artery: M1 and M2 segments are unremarkable. There is peripheral cortical enhancement. Right Posterior Cerebral Artery: P1 and P2 segments are unremarkable. There is peripheral enhancement. Left Carotid Siphon: Calcified plaque. No stenosis. Left Anterior Cerebral Artery: A1 and A2 segments are unremarkable. There is peripheral cortical enhancement. Left Middle Cerebral Artery: M1 and M2 segments are unremarkable. There is peripheral cortical enhancement. Left Posterior Cerebral Artery: P1 and P2 segments are unremarkable. There is peripheral cortical enhancement. Basilar Artery: Unremarkable. Venous drainage: Unremarkable. Impression: No stenosis. No large vessel occlusion. No signs of aneurysm. No signs of arterial venous malformation. CTA Neck, bolus contrast injection, 3D reconstructions and MPRs: Comparison: None Findings: Soft tissues of the neck are unremarkable. Superior aorta and branch vessels are unremarkable. Right carotid: No stenosis. Right vertebral: No stenosis. Left Carotid: Calcified bifurcation plaque with no stenosis. Left Vertebral: No stenosis. Impression: No stenosis. No aneurysm or dissection. Assessment and Plan (1) Change in mental state: Qualifiers: Altered mental status type: unspecified Qualified Code(s): R41.82 - Altered mental status, unspecified Status: Acute 79 years old woman with complex underlying medical and neuropsychiatric history including tendency for psychosomatic symptoms. As far her symptoms bringing her to hospital are concerned, there would nonspecific. Stroke was less likely. Seizure disorder was all was a possibility in this type of patient tendon EEG is recommended. As far as falling is concerned, she was at significant risk of falling due to signs of severe chronic peripheral neuropathy. As far as sleep issues are concerned, I have to review her previous records as she reported having diagnosis of narcolepsy which I could not confirmed at this time. I would recommend doing an EEG, reassuring her, and involve PT OT to help her with ambulation and to avoid risk of falling. Procedures Date of Service Date of Service: 04/08/25
--- NOTE | 2025-04-08 13:28 | PHA.MEDREC ---
Pharmacy Consult ? Medication Reconciliation Pharmacy has completed the medication reconciliation, got list from [facility], compared with claims and pharmacy helper spoke to patient and confirmed all medications.
--- NOTE | 2025-04-08 14:29 | MHC.SP.ADU ---
Referring provider: DR. Quiñones Reason for Referral: c/o word finding difficulty Type of Treatment: 57842 Assessment of Aphasia Date of Plan of Treatment: 04/08/25 Onset of Symptoms/Illness: 04/07/25 Date Treatment Started: 04/08/25 Medical Diagnosis: Primary Speech Language Diagnosis: Secondary Speech Language Diagnosis: History Patient is an 79 year old woman presented to the hospital today with a chief complaint of fall. Following fall, patient also had word finding difficulty per ED report. Exam was nonfocal. CT head and CT angio head and neck showed no acute findings. Patient reported to this therapist, her concerns about difficulty with word finding are not new onset. Patient also reported a history of narcolepsy, however, this is noted in chart. Patient further reported she has hand tremor on volitional movement (reaching for an object, opening things) which she attributes as the source of her falling. Patient expressed concerns that she needs more comprehensive neurological assessment, has had difficulty getting this. Lex has recently transitioned to living in independent living in a senior housing community. 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 Medical History: Other: Lumbar pain E coli bacteremia Acute hip pain Left arm weakness Anxiety GERD (gastroesophageal reflux disease) Peripheral neuropathy CARMEN on CPAP Lymphoma Resting tremor Restless leg syndrome Recurrent UTI Urinary incontinence Hyperlipidemia Hypothyroidism Hypertension Medication List: Recent Hospitalizations: No Respiratory Needs: Room Air Patient Orientation: Alert & Oriented x 4 Social History: Employment Status: Retired Highest level of education obtained: Completed High School/GED Current Living Situation: Lives in independent nursing home community. Assistive Devices in use: Wheelchair Comment: Past Speech Language Therapy: UNK Other Therapies Seen in Current Calendar Year: Other: Swallowing History: Dysphagia Specific: Within Functional Limits Comments: Pre-eval Risk for Aspiration: Neurological Condition Pre-evaluation Dietary Consistencies: Regular Pre-eval Liquid Intake: Thin Pre-eval Medication Intake: Whole with Liquid Reported Speech, Language, Cognition difficulties: Speaking Comments: Patient is concerned about word finding issues, presents with a mild anomia, unlikely related to new onset neurological event, likely due to underlying mild cognitive issues. Quality of Life: Good Patient Stated Goal of Speech-Language Therapy: Determine if any evidence of new onset communications issues related to ?CVA Assessment Speech Production: Within Functional Limits Clinical Impression: Intact Observations: In conversational speech and narrative, patient presented with fluent and clear speech and expression. Informal Voice Assessment: Voice Loudness: Normal Voice Nasal Resonance: Normal Voice Oral Resonance: Normal Voice Phonatory-based Quality: Normal Voice Pitch: Normal Voice Other Observations: Clinical Impression: Intact Clinicial Observations: Voice is WFL. Tests of Speech & Lang Adults: BDAE Clinical Impression: Observations: Speech Language Screening Patient was seen today for a Speech/Language Screening secondary to concerns about word finding/s/p fall Subtests from the short form of the [place] Diagnostic Aphasia Examination were used to briefly assess receptive and expressive language and speech articulation: [place] Naming Test (BNT) Short Form:: Errors did appear to be tip of tongue word finding difficulty, but very mild. Krysten Theft Picture (Narrative/Word finding in context): Well organized and expressed narrative, no evidence of word finding difficulty in connected speech. Word Comprehension: 100% Complex Ideational Material: 100% Oral Expression: 100% Patient on screening presents with indication of mild, incidental anomia. Patient reports this is not new onset and does not attribute this to her recent fall prompting this hospitalization. Impressions and Recommendations Summary: Patient on speech and language screening presents with indication of mild, incidental anomia. Patient reports this is not new onset and does not attribute this to her recent fall prompting this hospitalization. As patient expressed concern about her occasional difficulty with word finding, and expressed general concern about perception of family that she may be experiencing cognitive decline, patient would benefit from outpatient referral for Speech/Cognitive assessment and/or neuropsychological assessment to provide her with more comprehensive and contextual understanding of her current needs. This type of assessment is more appropriate outpatient, not indicated as needed as a part of this medical admission for fall at home. Patient expressed a number of additional concerns that she feels need more comprehensive neurological/neuropsychological assessment including narcolepsy and upper extremity tremor. Impact on Daily Function/Activity Limitations: Daily Activities: Mild Interpersonal Interactions: Mild Education: Employment: Community: Prognosis for Improvement: Good Comment: Recommendation for Speech Therapy: Outpatient Speech Therapy Recommended Referrals to be Discussed with Primary Care Provider: Neurology Neuropsychological Eval Patient Education: Completed: Yes Patient/Caregiver Education: Described Results of Evaluation Patient expressed understanding of evaluation Patient agrees with goals and treatment plan Comments/Barriers to Learning: Economic Geographer Clinican/Clinical Fellow: No Supervisory Statement: N/A Speech Language Pathologist: Nila Pollack M.A., [facility]
[2025-04-09 03:58] VITALS: PULSE 76; RESP 20; O2SAT 95
[2025-04-09 04:00] VITALS: BP 155/70; PULSE 54; RESP 18; TEMP 36.7; O2SAT 94
[2025-04-09 06:54] LABS: VBG HCO3 37 mmol/L (22-26); VBG O2 % Saturation 96.0 %
[2025-04-09 06:57] LABS: Hematocrit 37.0 % (37.0-47.0); Hemoglobin 12.0 g/dl (12.0-16.0); Mean Corpuscular HGB Conc 32.4 g/dl (31.0-35.0); Mean Corpuscular Hemoglobin 30.5 pg (27.0-33.0); Mean Corpuscular Volume 94.1 fL (80.0-98.0); NRBC Abs Auto 0.000 X10*3/uL (0.0-0.012); NRBC Pct Auto 0.0 /100WBC (0.0-0.2); Platelet Count 151 X10*3/uL (160-400); Red Blood Count 3.93 X10*6/uL (4.20-5.50); White Blood Count 4.5 X10*3/uL (4.8-10.8)
--- NOTE | 2025-04-09 07:00 | CA_ITS ---
Transthoracic Echocardiogram Patient (Last, First, Middle): Celi Nina, Gender: F Date of : 1945 Age: 79 Procedure Date: 04/09/2025 Procedure Type: Transthoracic Echocardiogram [place] [facility] [place]: 167.64 cm Weight: 82.1 kg BSA: 1.92 m2 Heart Rate: 60 bpm BP: 155 / 70 mmHg Healthcare Translator: SARAY Referring MD: Marcelo Quiñones MD Symptoms: cva Study Quality: Adequate w contrast ECG Rhythm: Sinus Conclusions: - The left ventricular systolic function is hyperdynamic. The visually estimated ejection fraction is >70%. - Moderately increased right ventricular cavity size. - There is mild calcification of the aortic valve. Findings Procedure Information Contrast agent, definity, is being given per protocol without apparent complications. Left Ventricle Normal left ventricular cavity size. There is mildly increased left ventricular wall thickness. The left ventricular systolic function is hyperdynamic. The visually estimated ejection fraction is >70%. There is no evidence of regional wall motion abnormalities. Diastolic function is normal for age. Right Ventricle Moderately increased right ventricular cavity size. There is normal right ventricular systolic function. Atria The left atrium is normal in size. The right atrium is moderately dilated. Aortic Valve There is a normal trileaflet aortic valve. There is mild calcification of the aortic valve. There is no aortic valve stenosis. There is no aortic valve regurgitation. Mitral Valve The mitral valve appears normal. There is no mitral valve regurgitation. There is no mitral valve stenosis. Pulmonic Valve The pulmonic valve is likely normal. Tricuspid Valve There is mild tricuspid valve regurgitation. There is no evidence of pulmonary hypertension. Great Vessels The asc aorta and aortic arch are normal in size. Venous The inferior vena cava is normal in size and collapses greater than 50% with inspiration. Pericardium/Pleural There is no evidence of pericardial effusion. Prior Study Comparison Changes noted compared to prior study dated: 10/22/2022. Diastolic function seems improved. Measurements 2D Linear Measurements IVSd: 1.08 0.6-0.9/0.6-1.0 cm LVIDd: 4.22 3.9-5.3/4.2-5.9 cm LVIDd Index: 2.20 2.4-3.2/2.2-3.1 cm/m2 LVIDs: 2.51 2.0-3.6 cm LVPWd: 1.04 0.7-1.1 cm LA Diam: 4.00 2.7-3.8/3.0-4.0 cm LAIDs Index: 2.08 1.5-2.3 cm/m2 LV Mass: 186.88 67-162/88-224 g LV Mass Index: 97.33 43-95/49-115 g/m2 LVOT Diam: 1.90 3.0+(-)1.3 cm 2D Systolic Function EF 4C: 80.30 >55% EF 2C: 68.50 >55% EF BiP: 75.50 >55% Mitral Valve MV Pk E: 0.75 MV PK A: 0.63 MV Decel Time: 315.00 E/A: 1.20 E'Lateral: 8.73 E'Medial: 6.39 E/E' Med: 11.70 E/E' Lat: 8.60 PHT: 92.00 MVA PHT: 2.39 Decel [place]: 2.38 Aortic Valve AoV Pk Markel: 1.54 AoV Mn Markel: 0.93 AoV VTI: 0.31 AoV Pk Grad: 9.00 Aov Mn Grad: 4.00 YAO Cont.VTI: 2.09 LVOT LVOT Pk Markel: 1.02 LVOT Mn Markel: 0.68 LVOT VTI: 0.23 LVOT Pk Grad: 4.00 LVOT Mn Grad: 2.00 LVOT Diam: 1.90 LVOT Area: 2.84 Diastolic Function MV Pk E: 0.75 MV Pk A: 0.63 E/A: 1.20 E'Medial: 6.39 E/E' Med: 11.70 E' Laterial: 8.73 E/E' Lat: 8.60 Right Ventricle TAPSE (mm): 30.60 TVS' Markel: 15.30 Tricuspid Valve TR Pk Markel: 2.06 TR Pk Grad: 17.00 RA Press: 3.00 RVSP: 20.00 Great Vessels Aorta Sinus of Valsalva: 3.00 2.0-3.5 cm Ao Asc: 3.10 2.1-3.4 cm Ao Arch: 2.60 Pulmonary Veins Pulm Vein S/D 1.10 Pulmonary Valve PV Pk Markel: 1.10 Peak PV Grad: 5.00 Updated in Other Vendor System with Status of Final Arsh Costa MD electronically signed on 04/09/2025 3:43:46 PM with status of Final
[2025-04-09 07:01] LABS: Venous Blood Gas Refer to POC result
[2025-04-09 07:10] LABS: Anion Gap 11 (12-20); Blood Urea Nitrogen 15 mg/dL (9-16); Calcium 8.8 mg/dL (8.4-10.2); Carbon Dioxide 29 mmol/L (22-29); Chloride 99 mmol/L (96-108); Creatinine Clr Calc Pharmacy 74.5; Estimated Glomerular Filt Rate > 60; Magnesium 2.2 mg/dL (1.6-2.6); Potassium 4.0 mmol/L (3.3-5.1); Sodium 135 mmol/L (135-145)
[2025-04-09 08:00] VITALS: BP 159/75; PULSE 55; RESP 18; TEMP 36.1; O2SAT 94
[2025-04-09] MEDS: 0.9 % Sodium Chloride Flush 3 ML SYRINGE IVFLUSH (09:17)
[2025-04-09] MEDS: Aspirin Enteric Coated 81 MG TABLET.DR PO (09:19)
[2025-04-09] MEDS: Metoprolol Succinate ER 50 MG TAB.ER.24H PO (09:19)
[2025-04-09] MEDS: Cholecalciferol (Vitamin D3) 10 MCG TABLET PO (09:20)
--- NOTE | 2025-04-09 09:45 | PC.NURSE ---
Patient oob to the bathroom with PT, from wheelchair to the toilet stand and pivot with 2 assist. Patient reports BM on the toilet. Patient requesting Macrobid 100mg daily, states she is taking it to prevent UTIs, also asking if Buprenorphine and Baclofen can be reordered Q4H, provider notified. Patient compliant with medication, meals and care.
--- NOTE | 2025-04-09 10:32 | PM.DS ---
DS: Providers Provider Date of Service: 04/09/25 Date of admission: 04/07/25 21:28 Date of discharge: 04/09/25 Primary care physician: Unknown Physician Consults: 04/07/25 21:30 Consult to Neurology Routine Consulting Provider: Pierce Bailey Reason for consultation: speech difficulty DS: Diagnosis Discharge Diagnosis (1) Change in mental state: Status: Acute DS: Summary Hospital Course Hospital Course: from initial hpi: 79-year-old female with a past medical history of HTN, HLD, hypothyroidism, CARMEN-on CPAP, peripheral neuropathy, anxiety, depression, GERD, chronic back pain, recurrent UTIs, lives alone; presented to the hospital today with a chief complaint of fall. Patient at the time of my interview is sleeping deeply. Hardly waking up to the verbal stimuli. Responds to painful stimuli. I spoke with the patient's daughter over the phone who mentioned that patient went to sleep she sleeps very deeply. Patient also has daytime excessive sleepiness in general. Patient's daughter is unsure if the patient is using her CPAP for her CARMEN. Patient's daughter unable to provide the history of presenting illness. History is limited. Per ER team the patient presented to the hospital with a chief complaint of fall; followed with a fall patient also had word finding difficulty. When she initially came to the ER patient was very conversive to the ER physician. Exam was nonfocal. CT head and CT angio head and neck showed no acute findings. Glabellar of hours later patient was noted to be extremely sleepy. Pupils are 1 mm in size. ICU team was consulted. Patient's blood gas showed pH of 7.39, pCO2 of 65. Patient was placed on supplemental oxygen briefly. Followed with patient oxygenation improved supplemental oxygenation was removed. Patient is saturating 90-95% on room air. Follow-up blood gas showed pCO2 of 55. Patient's daughter also mentions that patient is DNR/DNI. Review of all other systems is limited. hospital course: Patient was admitted for fall and acute metabolic encephalopathy. Was seen by Neurology who felt narcolepsy diagnosis is questionable and recommended EEG to rule out seizure, there is also possibility that this is somatic. CVA ruled out by MRI. Mental status returned to baseline. For hypothyroid was continued on levothyroxine. For CARMEN continued on BiPAP at night. For mood disorder continued on BuSpar. Patient is back to baseline and she will be discharged home. She should follow up EEG results with Neurology. Time Attestation Discharge Coordination Time (in mins): 34 Quality: Safe Use of Opioids Does Pt have an Active Cancer Diagnosis on the Problem List?: No Quality: Stroke Does the patient have a stroke diagnosis?: No Physical Exam Vital Signs: Vital Signs: Last Vital Signs Temp 97.0 F 04/09/25 08:00 Pulse 55 04/09/25 08:00 Resp 18 04/09/25 08:00 BP 159/75 H 04/09/25 08:00 Pulse Ox 94 04/09/25 08:00 O2 Del Method Room Air 04/09/25 08:00 O2 Flow Rate 1 04/07/25 21:58 BMI result Body Mass Index 29.3 Neuro: Other: She was alert and awake with normal spontaneity of speech fluency comprehension and somewhat flat affect. I did not notice any problem with a speech. Intermittently she would close her eyes. There was no sign of any confusion. Face was symmetrical. Visual ramirez are full. Pupils were equal and reactive to light. Extraocular muscles were intact. Hearing was intact. There was significant generalized muscle atrophy with loss of reflexes. She was able to move right foot much better than left. On the left side, ankle eversion and dorsiflexion were minimum to none. Plantars were flexor. DS: Data Data Completed and Pending Labs on day of discharge: Laboratory Results - last 24 hr 04/09/25 04/09/25 06:44 06:49 WBC 4.5 L RBC 3.93 L Hgb 12.0 Hct 37.0 MCV 94.1 MCH 30.5 MCHC 32.4 RDW 12.2 Plt Count 151 L MPV 9.3 L Absolute Nucleated RBC 0.000 Nucleated RBC % (auto) 0.0 VBG pH 7.43 VBG pCO2 56 VBG pO2 71 VBG HCO3 37 H VBG O2 Saturation 96.0 VBG Base Excess 11.2 Sodium 135 Potassium 4.0 Chloride 99 Carbon Dioxide 29 Anion Gap 11 L BUN 15 Creatinine 0.64 Estim Creat Clear Calc 74.5 Estimated GFR > 60 Random Glucose 105 Calcium 8.8 Magnesium 2.2 Discharge Plan Discharge Anticipated Discharge Date/Time: 04/09/25 10:27 Patient Disposition: Home Health Service Discharge Diagnosis: ams Referrals: Physician,Unknown J [Primary Care Provider, Medical] - 1 Week Discharge Medications: Continued furosemide 40 mg tablet 40 mg PO DAILY atorvastatin 20 mg tablet 20 mg PO DAILY cetirizine 10 mg Tablet 10 mg PO DAILY losartan 100 mg Tablet 100 mg PO DAILY latanoprost 0.005 % Drops 1 drp OPHTHALMIC (EYE) BEDTIME ascorbic acid (vitamin C) 1,000 mg Tablet 1,000 mg PO BID lamotrigine 200 mg Tablet 200 mg PO BID polyethylene glycol 3350 [Miralax] 17 gram Powder In Packet 17 g PO BID meloxicam 15 mg Tablet 15 mg PO DAILY levothyroxine 75 mcg Tablet 75 mcg PO DAILY@0600 omeprazole 20 mg Capsule,Delayed Release(Dr/Ec) 20 mg PO BID@0630,1630 escitalopram oxalate 20 mg Tablet 20 mg PO DAILY multivitamin Tablet 1 tab PO DAILY cholecalciferol (vitamin D3) 10 mcg (400 unit) Tablet 10 mcg PO DAILY buprenorphine HCl 2 mg Tablet, Sublingual 4 mg SUBLINGUAL TID PRN (Reason: cravings) acetaminophen 500 mg Tablet 1,000 mg PO TID PRN (Reason: Pain, Mild) lidocaine 5 % Adhesive Patch,Medicated 3 patch TOPICAL DAILY PRN (Reason: Pain) Rx Instructions: leave on most painful area for up to 12 hrs Lactobacillus acidophilus Tablet,Chewable 2 tab PO BID metoprolol succinate 50 mg Tablet Extended Release 24 Hr 50 mg PO DAILY aspirin 81 mg Tablet,Delayed Release (Dr/Ec) 81 mg PO DAILY modafinil 200 mg Tablet 200 mg PO BID@0800,1200 estradiol 0.01 % (0.1 mg/gram) Cream 1 g vaginal MOWEFR Rx Instructions: for 14 days fluticasone propionate 50 mcg/actuation [place],Suspension 2 spray INTRANASAL DAILY Rx Instructions: administer into each nostril pregabalin 100 mg Capsule 100 mg PO DAILY amlodipine 5 mg tablet 5 mg PO DAILY triamcinolone acetonide 0.1 % ointment 1 appl topical BID PRN (Reason: irritated skin) ipratropium bromide 21 mcg (0.03 %) spray,non-aerosol 1 spray intranasal BID PRN (Reason: congestion) nitrofurantoin monohyd/m-cryst 100 mg capsule 1 cap PO DAILY baclofen 10 mg Tablet 10 mg PO TID PRN (Reason: muscle spasms) buspirone 10 mg Tablet 20 mg PO BID Discharge Orders: Discharge Order (Routine); Ordered 04/09/25 Ordered By: Johann Kasper Diet: Advance to usual diet Activity on Discharge: As tolerated Stand Alone Forms: Patient Portal Discharge page Print Language: Kyrgyz Other Ambulatory Orders: EEG Routine (Routine) Timeframe: 1 Day Facility: [facility] - Location: Radiology Ordered By: Johann Kasper Care Plan Goals: recovery Health Concerns: fall, ams Plan of Treatment: follow up EEG Assessment: see above
[2025-04-09 11:15] LABS: Glucose, Whole Blood 107 mg/dL (60-115)
--- NOTE | 2025-04-09 11:15 | P.F2F_ITS ---
Service Date Service Date: 04/09/25 Encounter Date of encounter: 04/09/25 Reasons for Services Signs and symptoms assessed: lle weakness Reason for [facility]: medication management, medication treatment and teach disease management Reason for physical therapy: home safety and mobility and therapeutic exercises Homebound: Leaving the home is medically contraindicated at this time without the asist of a device and/or another person due th the listed conditions above and below. Reason homebound: bedbound/chairbound Certification: Based on the above findings, I certify that this patient is confined to the home and needs intermittent [facility] care, physical therapy and/or speech therapy, or continues to need occupational therapy. The patient is under my care, and I have initiated the establishment of the plan of care. The patient will be followed by a physician who will periodically review the plan of care. Time Spent With Patient Time: Total time managing care of this patient today ____ minutes.
--- NOTE | 2025-04-09 11:55 | MHC.CM.PN ---
Pt. has been medically cleared to [place], she will arrange a ride home and have home care services from [facility].
[2025-04-09 11:57] VITALS: BP 155/70; PULSE 62; RESP 18; TEMP 36.7; O2SAT 97
--- NOTE | 2025-04-09 13:01 | MHC.SLORD ---
Speech Language Pathology Order Status: Pt d/c today, [employer] tx indicated at next setting to address mild aphasia (anomia).
== END 2025-04-09 16:20 | disposition home health service (06) | DRG 71 ==
LOC: HO.ED 18:46 → HO.EDOVER 21:34 → HO.IMC 23:48
PROVIDERS: Admitting Provider Hospitalist; Emergency Provider Emergency Medicine Emergency Medical Services; PCP Family Medicine; Visit Provider Internal Medicine
DX: G93.41 Metabolic encephalopathy (principal); F11.20 Opioid dependence, uncomplicated; E03.9 Hypothyroidism, unspecified; G47.33 Obstructive sleep apnea (adult) (pediatric); F39 Unspecified mood [affective] disorder; R68.0 Hypothermia, not associated with low environmental temperature; F45.9 Somatoform disorder, unspecified; G47.419 Narcolepsy without cataplexy; I10 Essential (primary) hypertension; W19.XXXA Unspecified fall, initial encounter; Z66 Do not resuscitate; G62.9 Polyneuropathy, unspecified; Z87.440 Personal history of urinary (tract) infections; Z99.3 Dependence on wheelchair; Z79.82 Long term (current) use of aspirin; Z79.890 Hormone replacement therapy; Z79.899 Other long term (current) drug therapy
CPT/HCPCS: 36415; 36600; 70450; 70496; 70498; 70551; 71045; 80048; 80053; 80061; 80307; 81001; 82803; 82947; 83735; 84484; 85025; 85027; 85610; 85730; 93005; 93306; 94660; 95816; 97162; 97166; 99285; J0571; J1650; Q9957; Q9967

== ENCOUNTER → 2025-04-07 17:58 | Outpatient (BNV) | payer MEDICARE, OTHER, SELFPAY | PROVIDERS: Admitting Provider Hospitalist; Emergency Provider Emergency Medicine Emergency Medical Services; Visit Provider Internal Medicine Cardiovascular Disease | DX: R00.1 Bradycardia, unspecified (principal); I25.2 Old myocardial infarction | CPT/HCPCS: 93010 ==

== ENCOUNTER → 2025-04-07 17:58 | Outpatient (BNV) | payer MEDICARE, OTHER, SELFPAY | PROVIDERS: Emergency Provider Emergency Medicine Emergency Medical Services; Visit Provider Radiology Diagnostic Radiology | DX: G31.89 Other specified degenerative diseases of nervous system (principal) | CPT/HCPCS: 70450; 70496; 70498; 70551; 71045 ==

== ENCOUNTER 2025-04-07 21:28 | Outpatient (BNV) | payer OTHER, SELFPAY | END 2025-04-08 09:30 | PROVIDERS: Admitting Provider Hospitalist; Emergency Provider Emergency Medicine Emergency Medical Services; Visit Provider Psychiatry & Neurology Neurology | DX: R41.82 Altered mental status, unspecified (principal) | CPT/HCPCS: 95816 ==

== ENCOUNTER 2025-04-07 21:28 | Outpatient (BNV) | payer OTHER, SELFPAY | END 2025-04-09 07:00 | PROVIDERS: Admitting Provider Hospitalist; Emergency Provider Emergency Medicine Emergency Medical Services; PCP Family Medicine; Visit Provider Internal Medicine | DX: I35.8 Other nonrheumatic aortic valve disorders (principal); I51.7 Cardiomegaly; I36.1 Nonrheumatic tricuspid (valve) insufficiency | CPT/HCPCS: 93306 ==

== ENCOUNTER → 2025-04-07 21:28 | Outpatient (BNV) | payer MEDICARE, OTHER, SELFPAY | PROVIDERS: Admitting Provider Hospitalist; Emergency Provider Emergency Medicine Emergency Medical Services; Visit Provider Psychiatry & Neurology Neurology | DX: R41.82 Altered mental status, unspecified (principal) | CPT/HCPCS: 99223 ==

== ENCOUNTER → 2025-04-07 21:28 | Outpatient (BNV) | payer MEDICARE, OTHER, SELFPAY | PROVIDERS: Admitting Provider Hospitalist; Emergency Provider Emergency Medicine Emergency Medical Services; Visit Provider Internal Medicine | DX: G93.41 Metabolic encephalopathy (principal); R41.82 Altered mental status, unspecified; W18.39XA Other fall on same level, initial encounter | CPT/HCPCS: 99233 ==

== ENCOUNTER → 2025-04-07 21:28 | Outpatient (BNV) | payer MEDICARE, OTHER, SELFPAY | PROVIDERS: Admitting Provider Hospitalist; Emergency Provider Emergency Medicine Emergency Medical Services; Visit Provider Physician Assistant Medical | DX: R40.20 Unspecified coma (principal) | CPT/HCPCS: 99222 ==